=== PATIENT | female | born 1945 | race Caucasian/White ===

== ENCOUNTER 2024-03-10 17:48 | Outpatient (CLI) | payer MEDICARE, SELFPAY ==
[2024-03-10 13:58] LABS: Anion Gap 8.2 mmol/L (3-11); BUN 22 mg/dL (7-18); CO2 29.8 mmol/L (21.0-32.0); CREATININE 0.9 mg/dL (0.55-1.02); Calcium 9.3 mg/dL (8.5-10.1); Chloride 102 mmol/L (98-107); Estimated GFR 65.44 (mL/min/1.73m2); Glucose 133 mg/dL (74-106); Potassium 3.9 mmol/L (3.5-5.1); Sodium 140 mmol/L (136-145)
== END 2024-03-10 17:49 | disposition home or self-care (01) ==
LOC: LBO 17:49
PROVIDERS: Visit Provider Internal Medicine Hematology & Oncology
DX: C50.911 Malignant neoplasm of unspecified site of right female breast (principal); M85.852 Other specified disorders of bone density and structure, left thigh
CPT/HCPCS: 36415; 80048

== ENCOUNTER 2024-04-21 15:36 | Outpatient (CLI) | payer MEDICARE, SELFPAY ==
--- NOTE | 2024-04-21 13:30 | DI.RAD_ITS ---
Exam(s) XR SHOULDER LT COMPLETE 2+V EXAM: XR SHOULDER LT COMPLETE 2+V CLINICAL HISTORY: shoulder pain. TECHNIQUE: 2D digital imaging was performed of the left shoulder. Two images were obtained. Grashe y and axillary views were obtained. COMPARISON: No exams were available for comparison FINDINGS: BONES: No acute fracture is present. No bony destructive lesion is seen. JOINTS: No dislocation present. Degenerative changes are seen at both the acromioclavicular and gleno humeral joints. There is a bone island in the humeral head. SOFT TISSUE: Normal. IMPRESSION: Mild degenerative changes of the shoulder. DATA REPOSITORY: RADIATION DOSE DELIVERED:
== END 2024-04-21 15:37 | disposition home or self-care (01) ==
LOC: DIORS 15:37
PROVIDERS: Visit Provider Student in an Organized Health Care Education/Training Program
DX: M25.512 Pain in left shoulder (principal); M19.012 Primary osteoarthritis, left shoulder
CPT/HCPCS: 99203; 73030

== ENCOUNTER 2024-09-18 01:03 | Outpatient (CLI) | payer MEDICARE, SELFPAY ==
--- OUTSIDE RECORDS SUMMARY | 2024-09-18 01:15 | XMS_ITS | Continuity of Care Document ---
Author Organization [facility] Address [address] [place] [address] Care Team Providers Care Glass Selector Name Role Phone Kay Caldwell Primary Care Physician [phone] Encounter [facility] Date(s): 12/10/23 - 12/10/23 [facility] [address] [place] [address] Discharge Disposition: Home Allergies, Adverse Reactions, Alerts Substance Reaction Severity Status doxycycline Unknown Active morphine Unknown Active DULoxetine Itching Unknown Active Assessment and Plan Future Appointments Future Scheduled Tests Radiology* US Abdomen Limited 12/10/23 Immunizations Given and Recorded Vaccine Date Status Refusal Reason pneumococcal 20-valent conjugate vaccine 07/30/23 Given SARS-CoV-2 (COVID-19) mRNA-1273 vaccine 02/19/22 R ecorded SARS-CoV-2 (COVID-19) mRNA-1273 vaccine 08/15/21 R ecorded SARS-CoV-2 (COVID-19) mRNA-1273 vaccine 01/06/21 R ecorded SARS-CoV-2 (COVID-19) mRNA-1273 vaccine 12/09/20 R ecorded tetanus/diphth/pertuss (Tdap) adult/adol 01/02/22 Recorded tetanus/diphth/pertuss (Tdap) adult/adol 09/10/11 Recorded influenza virus vaccine, live 08/22/20 Recorded influenza virus vaccine, inactivated 09/14/19 De rded zoster vaccine, inactivated 02/28/18 Recorded zoster vaccine, inactivated 01/01/18 Recorded pneumococcal 13-valent conjugate vaccine 08/16/16 Recorded pneumococcal 23-polyvalent vaccine 07/23/11 Record ed zoster vaccine live 7/10/08 Recorded tetanus-diphth toxoids (Td) adult/adol 03/11/04 Re corded Medications clobetasol 0.05% topical ointment See Instructions, PRN as needed, Topical Daily apply a thin film in perineum, # 90 g, 2 Refill(s), Pharmacy: [facility] ([facility] ) Start Date: 03/28/23 Status: Ordered ketoconazole 1% topical shampoo 1 vinnie, Topical, every 3 day, # 200 mL, 0 Refill(s), Pharmacy: [id number] Start Date: 01/29/23 Status: Ordered lisinopril 10 mg oral tablet 1 tab, Oral, Daily, # 90 tab, 3 Refill(s), [facility]acy: [facility], 157, cm, 09/20/23 16:23:00 EST, Height, 90.22, kg, 09/23/23 9:13:00 EST, Weight Dosing Start Date: 10/17/23 Status: Ordered multivitamin adult, oral tablet 1 tab, Oral, Daily, 0 Refill(s) Start Date: 06/25/22 Status: Ordered nystatin 100,000 units/g topical powder See Instructions, apply a thin layer to ismael affacted area twice daily as needed, # 60 g, 1 Refill(s), Pharmacy: [facility] ([facility]) Start Date: 06/27/22 Status: Ordered omeprazole 20 mg oral delayed release capsule 1 cap, Oral, Daily, # 90 cap, 3 Refill(s), Pharmacy: [facility] ([facility]) Start Date: 05/02/23 Status: Ordered Premarin 0.625 mg/g vaginal cream with applicator See Instructions, 1 g VAG 2-3 times weekly, # 30 g, 2 Refill(s), Pharmacy: [facility] ([facility] ) Start Date: 03/28/23 Status: Ordered Probiotic Formula (Bacillus Coagulans) oral capsule 1 cap, Oral, Daily, # 30 cap, 0 Refill(s) Start Date: 06/25/22 Status: Ordered simvastatin 20 mg oral tablet 20 mg = 1 tab, Oral, every night at bedtime, # 90 tab, 3 Refill(s), Pharmacy: [facility] ([facility] ) Start Date: 02/19/23 Status: Ordered venlafaxine 25 mg oral tablet 25 mg = 1 tab, Oral, Daily, # 90 tab, 0 Refill(s) Start Date: 06/25/22 Status: Ordered Vitamin D3 2000 iu, Oral, Daily, 0 Refill(s) Start Date: 06/25/22 Status: Ordered Problem List Condition Confirmation Course Effective Dates Status H ealth Status Informant Anxiety Confirmed Active Deafness of right ear Confirmed Active Deltoid tendinitis Confirmed Active Depressive disorder Confirmed Active Dyspareunia Confirmed Active Gastroesophageal reflux disease Confirmed Active H/O: alcoholism Confirmed Active 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 Hiatal hernia Confirmed Active History of diverticulitis Confirmed Active Hyperlipidemia Confirmed 09/12/21 Active Hypertensive disorder Confirmed 09/12/21 Active Lichen sclerosus Confirmed Active Lumbar radiculopathy Confirmed 10/08/22 Active Breast cancer in female Confirmed Active Nasal congestion Confirmed Active Neuropathy Confirmed 10/09/22 Active Osteoarthritis Confirmed Active Overactive bladder Confirmed Active Triceps tendinitis Confirmed Active Procedures Procedure Date Related Diagnosis Body Site Status Pelvic examination 1 03/27/23 Comp leted Colonoscopy 2 02/28/22 Completed Cystoscopy 3 10/24/21 Completed Laparoscopic lysis of adhesions 10/24/21 Completed Laparoscopic partial colectomy 10/24/21 Completed Colonoscopy 4 10/23/21 Completed Knee replacement 5 02/11/06 Comple debbi Fixed suspension procedure o f bladder neck 02/08/06 Completed Knee replacement 6 07/11/04 Comple debbi Hysterectomy 7 11/10/84 Completed Appendectomy Completed Tonsillectomy Completed 1Pelvic exam for medication 2mild diverticular change, mild internal hemorrhoids 3With bilat uerteral cath/stent placement 4sigmoid stricture, fibrosis, polyps, diverticulosis, grade 1 internal hemorrhoids 5Right, in [place] 6left 7[place]; BSO Social History Social History Type Response Tobacco Former tobacco user Tobacco Use:. 1 Sex Female 1Quit 1987 Patient Care team information Care Team Personnel Name: Kay Caldwell MD Position: Physician Member Role: Informed Provider Address: Address: [facility] [address]- Care Team Related Persons Name: ANNIE PARISH Address: Home [address] [place] [address], [id number]
--- OUTSIDE RECORDS SUMMARY | 2024-09-18 01:15 | XMS_ITS | Continuity of Care Document ---
Author Organization [facility] Address [address] [place] [address] Care Team Providers Care Hydraulic Rubbish Compactor Mechanic Name Role Phone Kay Caldwell Primary Care Physician [phone] [facility] 12[facility] [address] Encounter Diagnosis Liver cyst(Discharge Diagnosis) - 12/12/23 Discharge Disposition: Home or Self Care Attending Physician: Kay Caldwell MD Admitting Physician: Kay Caldwell MD Referring Physician: Kay Caldwell MD Allergies, Adverse Reactions, Alerts Substance Reaction Severity Status doxycycline Unknown Active morphine Unknown Active DULoxetine Itching Unknown Active Assessment and Plan Future Appointments Immunizations Given and Recorded Vaccine Date Status [...] vaccine 07/23/11 Record ed zoster vaccine live 05/20/08 Recorded tetanus-diphth toxoids (Td) adult/adol 03/11/04 Re corded Medications clobetasol 0.05% topical ointment See Instructions, PRN as needed, Topical Daily apply a thin film in perineum, # 90 g, 2 Refill(s), Pharmacy: [facility] ([facility] ) Start Date: 03/28/23 Status: Ordered ketoconazole 1% topical shampoo 1 vinnie, Topical, every 3 day, # 200 mL, 0 Refill(s), Pharmacy: [facility]58 Start Date: 01/29/23 Status: Ordered lisinopril 10 mg oral tablet 1 tab, Oral, Daily, # 90 tab, 3 Refill(s), Pharmacy: [facility], 157, cm, 09/20/23 16:23:00 EST, Height, 90.22, kg, 09/23/23 9:13:00 EST, Weight Dosing Start Date: 10/17/23 Status: Ordered multivitamin adult, oral tablet 1 tab, Oral, Daily, 0 Refill(s) Start Date: 06/25/22 Status: Ordered nystatin 100,000 units/g topical powder See Instructions, apply a thin layer to ismael affacted area twice daily as needed, # 60 g, 1 Refill(s), [facility]) Start Date: 06/27/22 Status: Ordered omeprazole 20 mg oral delayed release capsule 1 cap, Oral, Daily, # 90 cap, 3 Refill(s), Pharmacy: [facility] ([facility]) Start Date: 05/02/23 Status: Ordered Premarin 0.625 mg/g vaginal cream with applicator See Instructions, 1 g VAG 2-3 times weekly, # 30 g, 2 Refill(s), Pharmacy: [facility] ([facility] ) Start Date: 03/28/23 Status: [...] diverticulosis, grade 1 internal hemorrhoids 5Right, in [place] 6left 7[place]; BSO Social History Social History Type Response Tobacco Former tobacco user Tobacco Use:. 1 Sex Female 1Quit 1987 Patient Care team information Care Team Personnel Name: Kay Caldwell MD Position: Physician Member Role: Informed Provider Address: Address: [address] [place] [address] [place] [address]- Care Team Related Persons Name: ANNIE PARISH Address: Home [address] [place] [address] [place], [phone]
--- OUTSIDE RECORDS SUMMARY | 2024-09-18 01:15 | XMS_ITS | Continuity of Care Document ---
Author Organization [facility] Address [address] [place] [address] Care Team Providers Care Gas Cutter Name Role Phone Kay Caldwell Primary Care Physician Encounter [facility] Date(s): 08/09/23 - 08/09/[address] [address] Discharge Disposition: Home or Self Care Attending Physician: Kay Caldwell MD Admitting Physician: Kay Caldwell MD Allergies, Adverse Reactions, Alerts Substance Reaction Severity Status doxycycline Unknown Active morphine Unknown Active DULoxetine Itching Unknown Active Assessment and Plan Future Appointments Diagnostic Tests Pending * Surgical Pathology [facility] 08/09/23 Immunizations Given and Recorded Vaccine Date Status [...] day, # 200 mL, 0 Refill(s), Pharmacy: [facility][id number] Start Date: 01/29/23 Status: Ordered lisinopril 10 mg oral tablet 1 tab, Oral, Daily, # 90 tab, 3 Refill(s), Pharmacy: [facility] ([facility]) Start Date: 11/15/22 Status: Ordered multivitamin adult, oral tablet 1 tab, Oral, Daily, 0 Refill(s) Start Date: 06/25/22 Status: Ordered nystatin 100,000 units/g topical powder See Instructions, apply a thin layer to ismael affacted area twice daily as needed, # 60 g, 1 Refill(s), Pharmacy: [facility] ([facility]) Start Date: [...] Confirmed Active Lumbar radiculopathy Confirmed 10/08/22 Active Neuropathy Confirmed 10/09/22 Active Osteoarthritis Confirmed [...] diverticulosis, grade 1 internal hemorrhoids 5Right, in [place] [address]left [address] [place] [address]; BSO Social History Social History Type Response Tobacco Former tobacco user Tobacco Use:. 1 Sex Female 1Quit 1987 Patient Care team information Care Team Personnel Name: Kay Caldwell MD Position: Physician Member Role: Primary Care Physician Address: Address: [place] [address]- Care Team Related Persons Name: ANNIE PARISH
--- OUTSIDE RECORDS SUMMARY | 2024-09-18 01:15 | XMS_ITS | Continuity of Care Document ---
Author Organization [facility] Address [address] [place] [address] Care Team Providers Care Ball Ender Name Role Phone Kay Caldwell Primary Care Physician Encounter [facility] Date(s): 08/02/23 - 08/02/23 [facility] [address] [place] [address] Discharge Disposition: Home Allergies, Adverse Reactions, Alerts Substance Reaction Severity Status doxycycline Unknown Active morphine Unknown Active DULoxetine Itching Unknown Active Assessment and Plan Future Appointments Future Scheduled Tests Radiology* MG Mammo Diagnostic Right 08/02/23 * US Breast Biopsy w/ Clip Right 08/02/23 Immunizations Given and Recorded Vaccine Date Status [...] day, # 200 mL, 0 Refill(s), Pharmacy: [facility] #[facility] Start Date: 01/29/23 Status: Ordered lisinopril [...] diverticulosis, grade 1 internal hemorrhoids 5Right, in [place] [address] [place] [address]; BSO Social History Social History Type Response Tobacco Former tobacco user Tobacco Use:. 1 Sex Female 1Quit 1987 Patient Care team information Care Team Personnel Name: Kay Caldwell MD Position: Physician Member Role: Primary Care Physician Address: Address: [place] [address]- Care Team Related Persons Name: ANNIE PARISH
--- OUTSIDE RECORDS SUMMARY | 2024-09-18 01:15 | XMS_ITS | Continuity of Care Document ---
Author Organization [facility] Address [address] [place] [address] Care Team Providers Care Acid Mixer Name Role Phone Kay Caldewll Primary Care Physician Encounter [facility] Date(s): 08/02/23 - 08/02/23 [facility] [address] [place] [address] Discharge Disposition: Home Allergies, Adverse Reactions, Alerts [...] day, # 200 mL, 0 Refill(s), Pharmacy: [facility] #[id number] Start Date: 01/29/23 Status: Ordered lisinopril [...] diverticulosis, grade 1 internal hemorrhoids 5Right, in [place] [address]left [address] [place] [address]; BSO Social History Social History Type Response Tobacco Former tobacco user Tobacco Use:. 1 Sex Female 1Quit 1987 Patient Care team information Care Team Personnel Name: Kay Caldwell MD Position: Physician Member Role: Primary Care Physician Address: Address: [place] [address]- Care Team Related Persons Name: ANNIE PARISH
--- OUTSIDE RECORDS SUMMARY | 2024-09-18 01:15 | XMS_ITS | Continuity of Care Document ---
Author Organization [facility] Address [address] [place] [address] Care Team Providers Care Lube Man Name Role Phone Kay Caldwell Primary Care Physician [facility] Date(s): 09/20/23 - 09/20/[address] [id number] Encounter Diagnosis Malaise(Discharge Diagnosis) - 09/20/23 Ecchymosis(Discharge Diagnosis) - 09/20/23 Discharge Disposition: Home or Self Care Attending Physician: Maranda Sims MD Admitting Physician: Maranda Sims MD Allergies, Adverse Reactions, Alerts Substance Reaction Severity Status doxycycline Unknown Active morphine Unknown Active DULoxetine Itching Unknown Active Assessment and Plan Future Appointments Functional Status 09/20/23 Family Member Travel History No recent t ravel Recent Travel History No recent travel Other exposure to Infectious Disease Non e Immunizations Given and Recorded Vaccine Date Status [...] day, # 200 mL, 0 Refill(s), Pharmacy: [id number] Start Date: 01/29/23 Status: Ordered lisinopril [...] tab, 3 Refill(s), Pharmacy: [facility] Start Date: 02/19/23 Status: [...] Active Breast cancer in female Confirmed Active Neuropathy Confirmed 10/09/22 Active Osteoarthritis [...] 1 internal hemorrhoids 5[facility] [place] [facility] Results Laboratory List Name Date Urinalysis with Micro if Indicated and C ulture if Indicated 09/20/23 CBC w/ Diff 09/20/23 Comprehensive Metabolic Panel (CMP) 09/11 Magnesium Level 09/20/23 Troponin-I 09/20/23 Automated Diff 09/20/23 SARS-CoV-2 (COVID-19)/Flu/RSV (GeneXpert ) 09/20/23 Most recent to oldest [Reference Range]: 1 WBC [5.0-10.0 x10^3/mcL] 7.8 x10^3/mcL (09/20/23 5:12 PM) RBC [4.1-5.3 x10^6/mcL] 4.4 x10^6/mcL (09/20/23 5:12 PM) Neutro Auto [40.0-75.0 %] 64.2 % (09/20/23 5:12 PM) Lymph Auto [20.0-50.0 %] 23.2 % (09/20/23 5:12 PM) Essex Auto [2.0-15.0 %] 8.0 % (09/20/23 5:12 PM) Basophil Auto [0.0-1.0 %] 0.8 % (09/20/23 5:12 PM) BUN [7-18 mg/dL] 25 mg/dL *HI* (09/20/23 5:12 PM) UA Color Yellow (09/20/23 5:25 PM) Glucose Level [74-106 mg/dL] 104 mg/dL (09/20/23 5:12 PM) Potassium Level [3.5-5.1 mmol/L] 4.7 mmo l/L (09/20/23 5:12 PM) MCV [80.0-96.0 fL] 91.1 fL (09/20/23 5:12 PM) UA Urobilinogen Normal (09/20/23 5:25 PM) UA Bili [Negative] Negative (09/20/23 5:25 PM) UA Ketones Negative (09/20/23 5:25 PM) AST [15-37 unit/L] 18 unit/L (09/20/23 5:12 PM) ALT [14-59 unit/L] 20 unit/L (09/20/23 5:12 PM) MCHC [31.0-35.0 g/dL] 32.6 g/dL (09/20/23 5:12 PM) Troponin-I [0.0-51.4 pg/mL] 8.1 pg/mL (09/20/23 5:12 PM) Sodium Level [136-145 mmol/L] 138 mmol/L (09/20/23 5:12 PM) UA Leuk Est Negative (09/20/23 5:25 PM) UA Nitrite Negative (09/20/2325 PM) UA Glucose [Negative] Negative (09/20/23:25 PM) Hct [37.0-47.0 %] 39.9 % (09/20/2312 PM) Calcium Level [8.5-10.1 mg/dL] 9.1 mg/dL (09/20/23 5:12 PM) Albumin Level [3.4-5.0 g/dL] 3.1 g/dL *LOW* (09/20/2312 PM) Protein Total [6.4-8.2 g/dL] 6.2 g/dL *LOW* (09/20/23 5:12 PM) UA Protein Negative (09/20/2325 PM) MCH [26.0-32.0 pg] 29.7 pg (09/20/23:12 PM) Magnesium Level [1.8-2.4 mg/dL] 1.9 mg/d L (09/20/23 5:12 PM) Neutro Absolute 5.0 x10^3/mcL *NA* (09/20/23:12 PM) Bilirubin Total [0.2-1.0 mg/dL] 0.2 mg/d L (09/20/23 5:12 PM) Hgb [12.0-16.0 g/dL] 13.0 g/dL (09/20/23:12 PM) Alk Phos [46-146 unit/L] 69 unit/L (09/20/23 5:12 PM) UA Blood Negative (09/20/23 5:25 PM) UA Spec Grav 1.010 *NA* (09/20/23:25 PM) Platelets [130-450 x10^3/mcL] 196 x10^3/ mcL (09/20/23 5:12 PM) CO2 [21-32 mmol/L] 29 mmol/L (09/20/23 5:12 PM) UA pH 5.5 *NA* (11/10/23 5:25 PM) eGFR Non-AA [>=60] 56 *LOW* (09/20/23 5:12 PM) eGFR AA [>=60] 56 *LOW* (09/20/23 5:12 PM) UA Appear Clear (09/20/23 5:25 PM) Chloride Level [98-107 mmol/L] 103 mmol/ L (09/20/23 5:12 PM) RDW-CV [11.5-14.5 %] 14.3 % (09/20/23 5:12 PM) Imm Gran Auto [0.0-0.9 %] 0.4 % (09/20/23 5:12 PM) Creatinine Level [0.55-1.02 mg/dL] 1.03 mg/dL *HI* (09/20/23 5:12 PM) SARS-CoV-2(Covid19)PCR(GXpert COVFLURSV) [Negative] Negative (09/20/23 4:34 PM) Flu A (GXpert COVFLURSV) [Negative] Nega tive (09/20/23 4:34 PM) RSV (GXpert COVFLURSV) [Negative] Negati ve (09/20/23 4:34 PM) Flu B (GXpert COVFLURSV) [Negative] Nega tive (09/20/23 4:34 PM) Eos, Auto [1.0-6.0 %] 3.4 % (09/20/23 5:12 PM) Vital Signs Most recent to oldest [Reference Range]: 1 2 3 Temperature Temporal Artery [36-38 Deg C] 36.3 Deg C (09/20/23 4:44 PM) 35.5 Deg C *LOW* (09/20/23 4:19 PM) Peripheral Pulse Rate [60-100 bpm] 62 bpm (09/20/23 4:19 PM) Heart Rate Monitored [60-100 bpm] 58 bpm *LOW* (09/20/23 6:30 PM) 60 bpm (09/20/23 5:38 PM) 56 bpm *LOW* (09/20/23 5:28 PM) Respiratory Rate [12-24 br/min] 19 br/min (09/20/23 6:21 PM) 34 br/min *HI* (09/20/23 5:38 PM) 19 br/min (09/20/23 5:28 PM) Blood Pressure [90-140/60-90 mmHg] 157/57mmHg *HI* (09/20/23 6:30 PM) 152/75mmHg *HI* (09/20/23 5:38 PM) 166/72mmHg *HI* (09/20/23 5:28 PM) Mean Arterial Pressure, Cuff [70-110 mmHg] 90 mmHg (09/20/23 6:30 PM) 101 mmHg (09/20/23 5:38 PM) 103 mmHg (09/20/23 5:28 PM) Weight Dosing 85.70 kg (09/20/23 4:23 PM) Weight Estimated 85.70 kg (09/20/23 4:19 PM) Height 157.000 cm (09/20/23 4:23 PM) Height/Length Estimated 157.000 cm (09/20/23 4:19 PM) Social History Social History Type Response Tobacco Former tobacco user Tobacco Use:. 1 Sex Female 1Quit 1987 Hospital Discharge Instructions Follow Up Care 09/20/2023 16:19:15 With:Kay Caldwell MD Address: [place] [address]- When:2 to 4 days EKG study * Event Display: Telemetry Strips Please click on link to view image. * Event Display: Telemetry Strips Please click on link to view image. Physician Emergency department Note * Bruno Franco MD: PERFORM Event Display: ED Note Physician Authored Date: [id number] K[place]K PARISH :1945 Age:78 years Sex:Female Visit Date:09/20/2023 Primary Care Physician: Kay Caldwell MD Basic Information Time Seen: Bruno Farnco MD / 09/20/2023 16:22 Chief Complaint I had a lumpectomy on Saturday and I just feel well, I have a sore throat that is numb, a CANO, I feel very woozy as well. I called the surgeon and they said I should come in and be seen. History Of Present Illness: 70-year-old female past medical history reflux, alcoholism, recent??lumpectomy right breast??presents with feeling off. ??Patient describes a general feeling??starting yesterday and getting worse throughout the day today where she has felt off. ??She is unable to really describe the sensation??inmore detail, does not subscribe to lightheadedness or room spinning or any??particular dizziness per se, but just does not feel quite herself.?? She??reports her general frontal minimal headache as well. ??No nausea vomiting diarrhea or abdominal pain,??no substernal chest pain or shortness of breath??or fevers. ??No known sick contacts. ??She does have some lingering tenderness to the right breast. Review of Systems: Unwell, malaise Physical Exam Vitals & Measurements T:??36.3?C ??(Temporal Artery)?? HR:??60??(Monitored)?? RR:??19?? BP:??152/75?? SpO2:??99%?? HT:??157.000??cm?? WT:??85.70??kg??(Estimated)?? O2 Therapy:??Room air?? General: Alert and oriented, well nourished,?No??acute distress Eye: PERRL, EOMI,?Normal?conjunctiva HENT: Normocephalic Lungs: Clear to auscultation and percussion,?Non-labored?? respiration Heart:?Normal? rate,?Regular??rhythm Abdomen: Soft, non-tender, non-distended Skin: Right breast incision??anteriorly has some ecchymosis surrounding this a couple centimeters, no obvious warmth or fluctuance or erythema or pus draining from the incision, no dehiscence of the incision, incision on the right??axillary region??is acutely unremarkable no pus or surrounding erythema Neurologic: Awake, alert and oriented X4, CN II-XII intact Psychiatric: Cooperative, appropriate mood and affect Medical Decision Makin-year-old female presents with??generally feeling off/unwell for the past day??or 2, gradually getting worse. ??On Saturday she had a lumpectomy with Dr. Schultz??at [facility],??she did have a nerve block at the time??and reports when the nerve block??wore off she had some pain in the incision areas??but it has not gotten any worse??throughout the day today.?? Clinically there is some ecchymosis around the anterior breast incision but no pus or erythema or warmth noted to the incisionitself,??the axillary right-sided incision is unremarkable as well. ??Clinically the patient looks well is responding appropriate to questions. ??35.5, 164/95, 62, 20, 99%. ?? EKG rate 58??sinus normal axis and intervals no ST segment elevations or depressions. ?? No leukocytosis. ??Hemoglobin stable.?? Other labs are unremarkable. ??Troponin is negative. ??Flu COVID RSV negative. ??UA negative.?? Chest x-ray shows subcutaneous emphysema in the lateral aspect of the right chest.?? This is most likely secondary to the patient's??recent surgical procedure of the right breast.?? She does not have any evidence of a necrotizing infection and no evidence of apneumothorax on her chest x-ray, and clinically she??looks quite well and does not have any??signs of infection around the??incision sites.?? There was some ecchymosis surrounding the right??breast anterior incision that was beyond the margins??that were drawn after her procedure, new margins were d rawn??on the skin??to keep track of the??ecchymosis. ??It is only about 2 to 3 cm beyond the margins of the prior line. ??Spoke with Dr. Schultz??who did the procedure, at this time??we will follow-up as an outpatient??given the remaining clinical??presentation.?? She may happen to simultaneously have a viral illness and feel unwell secondary to this??given the normal vitals and overall evaluation in the ER. ??She does have follow-up with primary care on Saturday. ??We will follow-up with both primary care and??surgery.?? Discharged in stable condition with strict return precautions the ED. Procedure No Qualifying Data Assessment/Plan 1.??Malaise??R53.81 Ordered: Discharge Patient, 09/20/23 18:26:00 EST, Home Independently, Constant Indicator ?? 2.??Ecchymosis??R58 Ordered: Discharge Patient, 09/20/23 18:26:00 EST, Home Independently, Constant Indicator ?? Follow Up With When Contact Information Kay Caldwell MD Within 2 to [address] [place] [address]- Additional Instructions: Medication Reconciliation Unchanged bacillus coagulans-inulin (Probiotic Formula (Bacillus Coagulans) oral capsule)1 Capsules Oral (given by mouth) every day. ?? cholecalciferol (Vitamin D3)2000 iu Oral (given by mouth) every day. ?? clobetasol topical (clobetasol 0.05% topical ointment)Topical Daily apply a thin film in perineum; as needed. Refills: 2. ?? conjugated estrogens topical (Premarin 0.625 mg/g vaginal cream with applicator)1 g VAG 2-3 times weekly. Refills: 2. ?? ketoconazole topical (ketoconazole 1% topical shampoo)1 Application Topical (on the skin) every 3 days. Refills: 0. ?? lisinopril (lisinopril 10 mg oral tablet)1 tab Oral (given by mouth) every day. Refills: 3. ?? multivitamin (multivitamin adult, oral tablet)1 tab Oral (given by mouth) every day. ?? nystatin topical (nystatin 100,000 units/g topical powder)apply a thin layer to ismael affacted area twice daily as needed. Refills: 1. ?? omeprazole (omeprazole 20 mg oral delayed release capsule)1 Capsules Oral (given by mouth) every day. Refills: 3. ?? simvastatin (simvastatin 20 mg oral tablet)1 tab Oral (given by mouth) every night at bedtime. Refills: 3. ?? venlafaxine (venlafaxine 25 mg oral tablet)1 tab Oral (given by mouth) every day. Problem List/Past Medical History Ongoing Anxiety Breast cancer in female Deafness of right ear Deltoid tendinitis Depressive disorder Dyspareunia Gastroesophageal reflux disease H/O: alcoholism Herniation of rectum into vagina Hiatal hernia History of diverticulitis Hyperlipidemia Hypertensive disorder Lichen sclerosus Lumbar radiculopathy Neuropathy Osteoarthritis Overactive bladder Triceps tendinitis Historical No qualifying data Procedure/Surgical History ???Pelvic examination (03/28/2023)???Colonoscopy (03/01/2022)???Cystoscopy (10/25/2021)???Laparoscopic lysis of adhesions (10/25/2021)???Laparoscopic partial colectomy (10/25/2021)???Colonoscopy (10/24/2021)???Knee replacement (02/12/2006)???Fixed suspension procedure of bladder neck (02/09/2006)???Knee replacement (07/12/2004)???Hysterectomy (11/11/1984)???Appendectomy???Tonsillectomy Allergies DULoxetine??(Itching) doxycycline morphine Social History Alcohol Never Electronic Cigarette/Vaping Electronic Cigarette Use: Never. Employment/School Retired Home/Environment Lives with Spouse. Nutrition/Health Diet: Regular. Substance Use Never Tobacco Former tobacco user Tobacco Use:.- Comments: Quit 1987 Family History Cancer: Mother and Father. Dementia: Mother. Depressive disorder: Mother. Heart disease: Father. Mental disorder: Mother. Stroke: Father. Lab Results CBC and Differential?? LATEST RESULTS?? HISTORICAL RESULTS?? WBC?? 09/20/23 17:12?? 7.8?? 01/31/23?? 5.5?? RBC?? 09/20/23 17:12?? 4.4?? 01/31/23?? 4.7?? Hgb?? 09/20/23 17:12?? 13.0?? 01/31/23?? 13.6?? Hct?? 09/20/23 17:12?? 39.9?? 01/31/23?? 42.6?? MCV?? 09/20/23 17:12?? 91.1?? 01/31/23?? 91.4?? MCH?? 09/20/23 17:12?? 29.7?? 01/31/23?? 29.2?? MCHC?? 09/20/23 17:12?? 32.6?? 01/31/23?? 31.9?? RDW-CV?? 09/20/23 17:12?? 14.3?? 01/31/23?? 13.3?? Platelets?? 09/20/23 17:12?? 196?? 08/02/23?? 238?? Neutro Auto?? 09/20/23 17:12?? 64.2?? 01/31/23?? 59.3?? Lymph Auto?? 09/20/23 17:12?? 23.2?? 01/31/23?? 25.3?? Essex Auto?? 09/20/23 17:12?? 8.0?? 01/31/23?? 9.6?? Eos, Auto?? 09/20/23 17:12?? 3.4?? 01/31/23?? 4.9?? Basophil Auto?? 09/20/23 17:12?? 0.8?? 01/31/23?? 0.7?? Imm Gran Auto?? 09/20/23 17:12?? 0.4?? 01/31/23?? 0.2?? Neutro Absolute?? 09/20/23 17:12?? 5.0?? 01/31/23?? 3.3? Routine Chemistry?? LATEST RESULTS?? HISTORICAL RESULTS?? Sodium Level?? 09/20/23 17:12?? 138?? 01/31/23?? 139?? Potassium Level?? 09/20/23 17:12?? 4.7?? 01/31/23?? 4.5?? Chloride Level?? 09/20/23 17:12?? 103?? 01/31/23?? 102?? CO2?? 09/20/23 17:12?? 29?? 01/31/23?? 32?? Alk Phos?? 09/20/23 17:12?? 69?? 01/31/23?? 67?? AST?? 09/20/23 17:12?? 18?? 01/31/23?? 20?? ALT?? 09/20/23 17:12?? 20?? 01/31/23?? 22?? BUN?? 09/20/23 17:12?? 25 ??High?? 01/31/23?? 21 ??High?? Glucose Level?? 09/20/23 17:12?? 104?? 01/31/23?? 118 ??High?? Creatinine Level?? 09/20/23 17:12?? 1.03 ??High?? 01/31/23?? 0.87?? eGFR AA?? 09/20/23 17:12?? 56 ??Low?? 01/31/23?? 69?? eGFR Non-AA?? 09/20/23 17:12?? 56 ??Low?? 01/31/23?? 69?? Calcium Level?? 09/20/23 17:12?? 9.1?? 01/31/23?? 9.3?? Protein Total?? 09/20/23 17:12?? 6.2 ??Low?? 01/31/23?? 6.8?? Albumin Level?? 09/20/23 17:12?? 3.1 ??Low?? 01/31/23?? 3.4?? Bilirubin Total?? 09/20/23 17:12?? 0.2?? 01/31/23?? 0.6?? Magnesium Level?? 09/20/23 17:12?? 1.9? Cardiac Isoenzymes?? LATEST RESULTS?? Troponin-I?? 09/20/23 17:12?? 8.1? UA Macroscopic?? LATEST RESULTS?? HISTORICAL RESULTS?? UA Color?? 09/20/23 17:25?? Yellow?? 09/03/22?? Yellow?? UA Appear?? 09/20/23 17:25?? Clear?? 09/03/22?? Clear?? UA Glucose?? 09/20/23 17:25?? Negative?? 09/03/22?? Negative?? UA Bili?? 09/20/23 17:25?? Negative?? 09/03/22?? Negative?? UA Ketones?? 09/20/23 17:25?? Negative?? 09/03/22?? Negative?? UA Spec Grav?? 09/20/23 17:25?? 1.010?? 09/03/22?? 1.015?? UA Blood?? 09/20/23 17:25?? Negative?? 09/03/22?? Negative?? UA pH?? 09/20/23 17:25?? 5.5?? 09/03/22?? 6.0?? UA Protein?? 09/20/23 17:25?? Negative?? 09/03/22?? Negative?? UA Urobilinogen?? 09/20/23 17:25?? Normal?? 09/03/22?? Normal?? UA Nitrite?? 09/20/23 17:25?? Negative?? 09/03/22?? Negative?? UA Leuk Est?? 09/20/23 17:25?? Negative?? 09/03/22?? Negative? Infectious Disease?? LATEST RESULTS?? SARS-CoV-2(Covid19)PCR(GXpert COVFLURSV)?? 09/20/23 16:34?? Negative?? Flu A (GXpert COVFLURSV)?? 09/20/23 16:34?? Negative?? Flu B (GXpert COVFLURSV)?? 09/20/23 16:34?? Negative?? RSV (GXpert COVFLURSV)?? 09/20/23 16:34?? Negative? Electronically Signed on 09/20/23 06:28 PM Bruno Franco MD Emergency department Discharge instructions * Bruno Franco MD: PERFORM Event Display: ED Discharge Information Authored Date: [id number] [place] :1945 Age:78 years Sex:Female Visit Date:09/20/2023 Primary Care Physician: Kay Caldwell MD Discharge Instructions We would like to thank you for allowing us to assist you with your healthcare needs. The following includes patient education materials and information regarding your injury/illness. Diagnosis from Today's Visit Malaise Ecchymosis Discharge Vitals Temperature??(Temporal Artery) 97.3 ??F (36.3 ??C) Heart Rate??(Monitored) 60 Respiratory Rate?? 19 Blood Pressure?? 152/75?? Height?? 61.81 in (157.000 cm) Weight??(Estimated) 188.97 lb (85.70 kg) Allergies DULoxetine??(Itching) doxycycline morphine What to Do Next Instructions from Your Care Team You were seen in the emergency department for generalized symptoms of a headache and??malaise.?? Your vitals and labs did not reveal any significant findings??of severe illness.?? Your flu COVID and RSV swab was negative.?? Your chest x-ray showed a little bit of air in the chest wall itself near the??incision site which??is likely a normal finding??after the procedure. ??You did have some??bruising around the front incision of the right breast, this was outlined, if it is getting significantlyrapidly worse??and expanding much beyond the line you can come back to the emergency department??for reevaluation. ??Otherwise follow-up with primary care physician appointment already scheduled on ??as well as with Dr. Schultz??for reevaluation.?? Come back to the ER with any worsening symptoms or concerns. You Need to Schedule the Following Appointments Follow Up with??Kay Caldwell MD When:??Within 2 to 4 days Where: [place] [address]- Upcoming Scheduled Appointments Saturday 9:20 AM EST ?? With: Erica Garza STEAM TURBINE OPERATOR Where: [address] [phone] Status: Confirmed Saturday 8:40 AM EDT ?? Where: [address] [address] Status: Confirmed You were treated today on an emergency basis; it may be barnes to contact your primary care provider to notify them of your visit today. You may have been referred to your regular doctor or a specialist, please follow up as instructed. If your condition worsens or you can't get in to see the doctor, contact the Emergency Department. Medications What How Much When Why Instructions Next Dose Unchanged bacillus coagulans- inulin (Probiotic Formula (Bacillus Coagulans) oral capsule) 1 Capsules Oral (given by mouth) Every day Unchanged cholecalciferol (Vitamin D3) 2000 iu Oral (given by mouth) Every day Unchanged clobetasol topical (clobetasol 0.05% topical ointment) See instructions Topical Daily apply a thin film in perineum, As needed for as needed ?? Unchanged conjugated estrogens topical (Premarin 0.625 mg/ g vaginal cream with applicator) See instructions 1 g VAG 2-3 times weekly ?? Unchanged ketoconazole topical (ketoconazole 1% topical shampoo) 1 Application Topical (on the skin) Every 3 days Scalp itch Unchanged lisinopril (lisinopril 10 mg oral tablet) 1 tab Oral (given by mouth) Every day Unchanged multivitamin (multivitamin adult, oral tablet) 1 tab Oral (given by mouth) Every day Unchanged nystatin topical (nystatin 100,000 units/ g topical powder) See instructions apply a thin layer to ismael affacted area twice daily as needed ?? Unchanged omeprazole (omeprazole 20 mg oral delayed release capsule) 1 Capsules Oral (given by mouth) Every day Unchanged simvastatin (simvastatin 20 mg oral tablet) 1 tab Oral (given by mouth) Every night at bedtime Unchanged venlafaxine (venlafaxine 25 mg oral tablet) 1 tab Oral (given by mouth) Every day Tests Performed Lab Test Name Test Result Date/Time WBC 7.8 x10^3/mcL 09/20/2023 17:12 EST RBC 4.4 x10^6/mcL 09/20/2023 17:12 EST Hgb 13.0 g/dL 09/20/2023 17:12 EST Hct 39.9 % 09/20/2023 17:12 EST MCV 91.1 fL 09/20/2023 17:12 EST MCH 29.7 pg 09/20/2023 17:12 EST MCHC 32.6 g/dL 09/20/2023 17:12 EST RDW-CV 14.3 % 09/20/2023 17:12 EST Platelets 196 x10^3/mcL 09/20/2023 17:12 EST Neutro Auto 64.2 % 09/20/2023 17:12 EST Lymph Auto 23.2 % 09/20/2023 17:12 EST Essex Auto 8.0 % 09/20/2023 17:12 EST Eos, Auto 3.4 % 09/20/2023 17:12 EST Basophil Auto 0.8 % 09/20/2023 17:12 EST Imm Gran Auto 0.4 % 09/20/2023 17:12 EST Neutro Absolute 5.0 x10^3/mcL 09/20/2023 17:12 EST Sodium Level 138 mmol/L 09/20/2023 17:12 EST Potassium Level 4.7 mmol/L 09/20/2023 17:12 EST Chloride Level 103 mmol/L 09/20/2023 17:12 EST CO2 29 mmol/L 09/20/2023 17:12 EST Alk Phos 69 unit/L 09/20/2023 17:12 EST AST 18 unit/L 09/20/2023 17:12 EST ALT 20 unit/L 09/20/2023 17:12 EST BUN 25 mg/dL 09/20/2023 17:12 EST Glucose Level 104 mg/dL 09/20/2023 17:12 EST Creatinine Level 1.03 mg/dL 09/20/2023 17:12 EST eGFR AA 56 09/20/2023 17:12 EST eGFR Non-AA 56 09/20/2023 17:12 EST Calcium Level 9.1 mg/dL 09/20/2023 17:12 EST Protein Total 6.2 g/dL 09/20/2023 17:12 EST Albumin Level 3.1 g/dL 09/20/2023 17:12 EST Bilirubin Total 0.2 mg/dL 09/20/2023 17:12 EST Magnesium Level 1.9 mg/dL 09/20/2023 17:12 EST Troponin-I 8.1 pg/mL 09/20/2023 17:12 EST UA Color YELLOW. 09/20/2023 17:25 EST UA Appear CLEAR. 09/20/2023 17:25 EST UA Glucose NEGATIVE 09/20/2023 17:25 EST UA Bili NEGATIVE 09/20/2023 17:25 EST UA Ketones NEGATIVE 09/20/2023 17:25 EST UA Spec Grav 1.010 09/20/2023 17:25 EST UA Blood NEGATIVE 09/20/2023 17:25 EST UA pH 5.5 09/20/2023 17:25 EST UA Protein NEGATIVE 09/20/2023 17:25 EST UA Urobilinogen 0.2 Uro 09/20/2023 17:25 EST UA Nitrite NEGATIVE 09/20/2023 17:25 EST UA Leuk Est NEGATIVE 09/20/2023 17:25 EST SARS-CoV-2(Covid19)PCR(GXpert COVFLURSV) NEGATIVE 09/20/2023 16:34 EST Flu A (GXpert COVFLURSV) NEGATIVE 09/20/2023 16:34 EST Flu B (GXpert COVFLURSV) Neg-GeneXPert 09/20/2023 16:34 EST RSV (GXpert COVFLURSV) Neg-GeneXPert 09/20/2023 16:34 EST Patient/Gear Grinder Signature Patient Name:KIRK PARISH I have received this information and my questions have been answered. Patient/Gear Grinder Name: Patient/Gear Grinder Signature: Relationship to Patient: Witness Name/Signature: Date: Electronically Signed on: 09/20/2023 18:28 ESTSigned by:TRM Emergency department Note * SameerTina H: PERFORM Event Display: ED Notes Authored Date: [id number] Patient Care team information Care Team Personnel Name: Kay Caldwell MD Position: Physician Member Role: Informed Provider Address: Address: [place], [place] [address] Name: Evelyne Mayers RN Position: Nurse Member Role: ED Nurse Name: Bruno Franco MD Position: Physician Member Role: ED Physician Address: Address: [facility] [address] [place] [address]- Care Team Related Persons Name: ANNIE PARISH Address: [address] [id number]
--- OUTSIDE RECORDS SUMMARY | 2024-09-18 01:15 | XMS_ITS | Continuity of Care Document ---
Author Organization [facility] Address [address] [place] [address] Care Team Providers Care Green Meat Packer Name Role Phone Kay Caldwell Primary Care Physician [phone] Encounter [facility] Date(s): 04/24/24 - 04/24/24 [facility] [address] [place] [address] Discharge Disposition: Home Allergies, Adverse Reactions, Alerts Substance Reaction Severity Status doxycycline Unknown Active morphine Unknown Active DULoxetine Itching Unknown Active Assessment and Plan Future Appointments Future Scheduled Tests Radiology* MG Mammo Screening Bilateral w/ Karri 04/24/24 * US Extremity Nonvascular Limited Right 04/24/24 Immunizations Given and Recorded Vaccine Date Status Refusal Reason Pneumococcal Conjugate, unspecified form 01/27/24 Recorded SARS-COV-2 (COVID-19) vaccine, unspecifi 01/20/24 Recorded SARS-COV-2 (COVID-19) vaccine, unspecifi 08/05/23 Recorded SARS-COV-2 (COVID-19) vaccine, unspecifi 04/01/23 Recorded SARS-COV-2 (COVID-19) vaccine, unspecifi 09/04/22 Recorded influenza, unspecified formulation 08/05/23 Record ed pneumococcal 20-valent conjugate vaccine 07/30/23 Given SARS-CoV-2 [...] toxoids (Td) adult/adol 03/11/04 Re corded Medications anastrozole 1 mg oral tablet TAKE ONE TABLET BY MOUTH EVERY DAY Start Date: 02/03/24 Status: Ordered clobetasol 0.05% topical ointment See Instructions, PRN as needed, Topical Daily apply a thin film in perineum, # 90 g, 2 Refill(s), Pharmacy: [facility] ([facility] ) Start Date: 03/28/23 Status: Ordered ketoconazole 1% topical shampoo 1 vinnie, Topical, every 3 day, # 200 mL, 3 Refill(s), Pharmacy: [facility] #58, 158, cm, 02/03/24 8:39:00 EDT, Height, 90.5, kg, 02/03/24 8:51:00 EDT, Weight Dosing Start Date: 02/04/24 Status: Ordered lisinopril 10 mg oral tablet 1 tab, Oral, Daily, # 90 tab, 3 Refill(s), Pharmacy: [facility], 157, cm, 09/20/23 16:23:00 EST, Height, 90.22, kg, 09/23/23 9:13:00 EST, Weight Dosing Start Date: 10/17/23 Status: Ordered multivitamin adult, oral tablet 1 tab, Oral, Daily, 0 Refill(s) Start Date: 06/25/22 Status: Ordered nystatin 100,000 units/g topical powder See Instructions, apply a thin layer to ismael affacted area twice daily as needed, # 60 g, 1 Refill(s), [facility]: [facility]) Start Date: 06/27/22 Status: Ordered omeprazole 20 mg oral delayed release capsule 1 cap, Oral, Daily, # 90 cap, 3 Refill(s), Pharmacy: [facility], 158, cm, 02/03/24 8:39:00EDT, Height, 90.5, kg, 02/03/24 8:51:00 EDT, Weight Dosing Start Date: 03/27/24 Status: Ordered Probiotic Formula (Bacillus Coagulans) oral capsule 1 cap, Oral, Daily, # 30 cap, 0 Refill(s) Start Date: 06/25/22 Status: Ordered simvastatin 20 mg oral tablet 1 tab, Oral, every night at bedtime, # 90 tab, 3 Refill(s), Pharmacy: [facility], 157, cm,09/20/23 16:23:00 EST, Height, 90.22, kg, 09/23/23 9:13:00 EST, Weight Dosing Start Date: 01/15/24 Status: Ordered venlafaxine 25 mg oral tablet [...] tendinitis Confirmed Active Depressive disorder Confirmed Active Gastroesophageal reflux disease Confirmed Active [...] diverticulosis, grade 1 internal hemorrhoids 5Right, [facility] [place] [facility]; [facility] Social History Social History Type Response Tobacco Former tobacco user Tobacco Use:. 1 Sex Female 1Quit 1987 Patient Care team information Care Team Personnel Name: Kay Caldwell MD Position: Physician Member Role: Informed Provider Address: Address: [address] [place] [address] [place] [address]- Care Team Related Persons Name: ANNIE PARISH Address: Home [address] [place] [address], [phone]
--- OUTSIDE RECORDS SUMMARY | 2024-09-18 01:15 | XMS_ITS | Continuity of Care Document ---
Author Organization [facility] Address [address] [place] [address] Care Team Providers Care Reconciliation Machine Operator Name Role Phone Kay Caldwell Primary Care Physician [facility] 09/03/22 - 09/03/22 [facility] [address] [place] [address] Discharge Disposition: Home or Self Care Attending Physician: Kay Caldwell MD Admitting Physician: Kay Caldwell MD Referring Physician: Kay Caldwell MD Allergies, Adverse Reactions, Alerts Substance Reaction Severity Status doxycycline Unknown Active morphine Unknown Active DULoxetine Itching Unknown Active Assessment and Plan Future Appointments Immunizations Given and Recorded Vaccine Date Status Refusal Reason SARS-CoV-2 (COVID-19) mRNA-1273 vaccine 02/19/22 R ecorded [...] Re corded Medications clobetasol 0.05% topical ointment Topical, Daily, PRN as needed, 60 g, 0 Refill(s) Start Date: 06/25/22 Status: Ordered lisinopril 10 mg oral tablet 1 tab, Oral, Daily, 90 tab, 0 Refill(s) Start Date: 06/25/22 Status: Ordered multivitamin adult, oral tablet 1 tab, Oral, Daily, 0 Refill(s) Start Date: 06/25/22 Status: Ordered nystatin 100,000 units/g topical powder See Instructions, apply a thin layer to ismael affacted area twice daily as needed, # 60 g, 1 Refill(s), Pharmacy: [facility]) Start Date: 06/27/22 Status: Ordered omeprazole 20 mg oral delayed release capsule 20 mg = 1 cap, Oral, Daily, # 90 cap, 3 Refill(s), [facility]) Start Date: 05/08/22 Status: Ordered pregabalin 75 mg oral capsule 75 mg = 1 cap, Oral, BID, increased dose from 25mg BID to 75mg BID, # 60 cap, 0 Refill(s), Pharmacy: [facility] Start Date: 07/24/22 Status: Ordered Premarin Oral, Daily, check dose, 0 Refill(s) Start Date: 06/25/22 Status: Ordered Probiotic Formula (Bacillus Coagulans) oral capsule 1 cap, Oral, Daily, # 30 cap, 0 Refill(s) Start Date: 06/25/22 Status: Ordered QUEtiapine 25 mg oral tablet 25 mg = 1 tab, Oral, Daily, # 90 tab, 0 Refill(s) Start Date: 06/25/22 Status: Ordered simvastatin 20 mg oral tablet 20 mg = 1 tab, Oral, every night at bedtime, # 90 tab, 0 Refill(s) Start Date: 06/25/22 Status: Ordered venlafaxine 25 mg oral tablet [...] Confirmed 09/12/21 Active Lichen sclerosus Confirmed Active Osteoarthritis Confirmed Active Overactive bladder Confirmed Active Triceps tendinitis Confirmed Active Procedures Procedure Date Related Diagnosis Body Site Status Colonoscopy 1 02/28/22 Completed Cystoscopy 2 10/24/21 Completed Laparoscopic lysis of adhesions 10/24/21 Completed Laparoscopic partial colectomy 10/24/21 Completed Colonoscopy 3 10/23/21 Completed Knee replacement 4 02/11/06 Comple debbi Fixed suspension procedure o f bladder neck 02/08/06 Completed Knee replacement 5 07/11/04 Comple debbi Hysterectomy 6 11/10/84 Completed Appendectomy Completed Tonsillectomy Completed 1mild diverticular change, mild internal hemorrhoids 2With bilat uerteral cath/stent placement 3sigmoid stricture, fibrosis, polyps, diverticulosis, grade 1 internal hemorrhoids 4Right, in [place] 5[facility] 6[place]; BSO Results Laboratory List Name Date Urinalysis with Micro if Indicated and C ulture if Indicated 09/03/22 Most recent to oldest [Reference Range]: 1 UA Color Yellow (09/03/22 11:58 AM) UA Urobilinogen Normal (09/03/22 11:58 AM) UA Bili [Negative] Negative (09/03/22 11:58 AM) UA Ketones Negative (09/03/22 11:58 AM) UA Leuk Est Negative (09/03/22 11:58 AM) UA Nitrite Negative (09/03/22 11:58 AM) UA Glucose [Negative] Negative (09/03/22 11:58 AM) UA Protein Negative (09/03/22 11:58 AM) UA Blood Negative (09/03/22 11:58 AM) UA Spec Grav 1.015 *NA* (09/03/22 11:58 AM) UA pH 6.0 *NA* (09/03/22 11:58 AM) UA Appear Clear (09/03/22 11:58 AM) Social History Social History Type Response Tobacco Former tobacco user Tobacco Use:. 1 Sex Female 1Quit 1987 Patient Care team information Personnel Name: Kay Caldwell MD Address: Address: [place] [address]- [place]
--- OUTSIDE RECORDS SUMMARY | 2024-09-18 01:15 | XMS_ITS | Continuity of Care Document ---
Author Organization [facility] Address [address] [place] [address] Care Team Providers Care Renewable Energy Broker Name Role Phone Kay Caldwell Primary Care Physician Encounter [facility] Date(s): 01/31/23 - 01/31/[address] [address] Discharge Disposition: Home or Self Care Attending [...] 0 Refill(s) Start Date: 06/25/22 Status: Ordered ketoconazole 1% topical shampoo 1 vinnie, Topical, every 3 day, # 200 mL, 0 Refill(s), Pharmacy: [facility] Start Date: 01/29/23 Status: Ordered lisinopril 10 mg oral tablet 1 tab, Oral, Daily, # 90 tab, 3 Refill(s), [facility]: [facility] ([facility]) Start Date: 11/15/22 Status: Ordered multivitamin adult, oral tablet 1 tab, Oral, Daily, 0 Refill(s) Start Date: 06/25/22 Status: Ordered nystatin 100,000 units/g topical powder See Instructions, apply a thin layer to ismael affacted area twice daily as needed, # 60 g, 1 Refill(s), [facility]acy: [facility]) Start Date: 06/27/22 Status: Ordered omeprazole 20 mg oral delayed release capsule 20 mg = 1 cap, Oral, Daily, # 90 cap, 3 Refill(s), Pharmacy: [facility]) Start Date: 05/08/22 Status: Ordered Premarin Oral, Daily, check dose, [...] diverticulosis, grade 1 internal hemorrhoids 4Right, in [place] 5left 6[place]; BSO Results Laboratory List Name Date Automated Diff 01/31/23 CBC w/ Diff 01/31/23 Comprehensive Metabolic Panel (CMP) 01/31 Hemoglobin A1c 01/31/23 Lipid Panel 01/31/23 Most recent to oldest [Reference Range]: 1 WBC [5.0-10.0 x10^3/mcL] 5.5 x10^3/mcL (01/31/23 7:09 AM) RBC [4.1-5.3 x10^6/mcL] 4.7 x10^6/mcL (01/31/23 7:09 AM) Neutro Auto [40.0-75.0 %] 59.3 % (01/31/23 7:09 AM) Lymph Auto [20.0-50.0 %] 25.3 % (01/31/23 7:09 AM) [place] Auto [2.0-15.0 %] 9.6 % (01/31/23 7:09 AM) Basophil Auto [0.0-1.0 %] 0.7 % (01/31/23 7:09 AM) BUN [7-18 mg/dL] 21 mg/dL *HI* (01/31/23 7:09 AM) Cholesterol Total [50-200 mg/dL] 207 mg/ dL *HI* (01/31/23 7:09 AM) LDL [0-130 mg/dL] 109 mg/dL (01/31/23 7:09 AM) Glucose Level [74-106 mg/dL] 118 mg/dL *HI* (01/31/23 709 AM) Potassium Level [3.5-5.1 mmol/L] 4.5 mmo l/L (01/31/23 7:09 AM) MCV [80.0-96.0] 91.4 (01/31/2309 AM) HDL [40-60 mg/dL] 89 mg/dL *HI* (01/31/23 709 AM) AST [15-37 unit/L] 20 unit/L (01/31/2309 AM) ALT [14-59 unit/L] 22 unit/L (01/31/23 7:09 AM) MCHC [31.0-35.0 g/dL] 31.9 g/dL (01/31/23 709 AM) Sodium Level [136-145 mmol/L] 139 mmol/L (01/31/23 7:09 AM) Hct [37.0-47.0 %] 42.6 % (01/31/23 7:09 AM) Triglycerides [0-150 mg/dL] 45 mg/dL (01/31/23 7:09 AM) Calcium Level [8.5-10.1 mg/dL] 9.3 mg/dL (01/31/23 7:09 AM) Albumin Level [3.4-5.0 g/dL] 3.4 g/dL (01/31/23 7:09 AM) Protein Total [6.4-8.2 g/dL] 6.8 g/dL (01/31/23 7:09 AM) MCH [26.0-32.0 pg] 29.2 pg (01/31/23 7:09 AM) Neutro Absolute 3.3 x10^3/mcL *NA* (01/31/23 7:09 AM) Bilirubin Total [0.2-1.0 mg/dL] 0.6 mg/d L (01/31/23 7:09 AM) Hgb [12.0-16.0 g/dL] 13.6 g/dL (01/31/23 7:09 AM) Alk Phos [46-146 unit/L] 67 unit/L (01/31/23 7:09 AM) Platelets [130-450 x10^3/mcL] 228 x10^3/ mcL (01/31/23 7:09 AM) CO2 [21-32 mmol/L] 32 mmol/L (01/31/23 7:09 AM) eGFR Non-AA [>=60] 69 (01/31/23 7:09 AM) eGFR AA [>=60] 69 (01/31/23 7:09 AM) Hemoglobin A1c [4.0-6.0 %] 6.0 % (01/31/23 7:09 AM) Chloride Level [98-107 mmol/L] 102 mmol/ L (01/31/23 7:09 AM) RDW-CV [11.7-17.0 %] 13.3 % (01/31/23 7:09 AM) Imm Gran Auto [0.0-0.9 %] 0.2 % (01/31/23 7:09 AM) Creatinine Level [0.55-1.02 mg/dL] 0.87 mg/dL (01/31/23 7:09 AM) Eos, Auto [1.0-6.0 %] 4.9 % (01/31/23 7:09 AM) Social History Social History Type Response Tobacco Former tobacco user Tobacco Use:. 1 Sex Female 1Quit 1987 Patient Care team information Care Team Personnel Name: Kay Caldwell MD Position: Physician Member Role: Primary Care Physician Address: Address: [place] [address]- Care Team Related Persons Name: ANNIE PARISH Address: Home
--- OUTSIDE RECORDS SUMMARY | 2024-09-18 01:15 | XMS_ITS | Continuity of Care Document ---
Author Organization [facility] Address [address] [place] [address] Care Team Providers Care Channel Business Manager Name Role Phone Kay Caldwell Primary Care Physician Encounter [facility] Date(s): 08/02/23 - 08/02/23 [facility] [address] [place] [address] Discharge Disposition: Home Allergies, Adverse Reactions, Alerts [...] day, # 200 mL, 0 Refill(s), Pharmacy: [facility] Start Date: 01/29/23 Status: Ordered lisinopril [...] diverticulosis, grade 1 internal hemorrhoids 5Right, in [place] [address]left [address] [place] [address]; BSO Social History Social History Type Response Tobacco Former tobacco user Tobacco Use:. 1 Sex Female 1Quit 1987 Patient Care team information Care Team Personnel Name: Kay Caldwell MD Position: Physician Member Role: Primary Care Physician Address: Address: [place] [address]- Care Team Related Persons Name: ANNIE PARISH
--- OUTSIDE RECORDS SUMMARY | 2024-09-18 01:15 | XMS_ITS | Continuity of Care Document ---
Author Organization [facility] Address [address] [place] [address] Care Team Providers Care Director Cpg Name Role Phone Kay Caldwell Primary Care Physician [phone] Encounter [facility] Date(s): 04/24/24 - 04/24/24 [facility] [address] [place] [address] Discharge Disposition: Home Allergies, Adverse Reactions, Alerts [...] g, 2 Refill(s), [facility] ) Start Date: 03/28/23 Status: Ordered ketoconazole 1% topical shampoo 1 vinnie, Topical, every 3 day, # 200 mL, 3 Refill(s), Pharmacy: [facility], 158, cm, 02/03/24 8:39:00 EDT, Height, 90.5, kg, 02/03/24 8:51:00 EDT, Weight Dosing Start Date: 02/04/24 Status: Ordered lisinopril 10 mg oral tablet 1 tab, Oral, Daily, # 90 tab, 3 Refill(s), Pharmacy: [facility], 157, cm, 09/20/23 16:23:00 EST, Height, 90.22, kg, 09/23/23 9:13:00 EST, Weight Dosing Start Date: 10/17/23 Status: Ordered multivitamin adult, oral tablet 1 tab, Oral, Daily, 0 Refill(s) Start Date: 06/25/22 Status: Ordered nystatin 100,000 units/g topical powder See Instructions, apply a thin layer to ismael affacted area twice daily as needed, # 60 g, 1 Refill(s), [facility]: [facility]) Start Date: [...] 1 internal hemorrhoids 5Right, in [place] 6[facility]; BSO Social History Social History Type Response Tobacco Former tobacco user Tobacco Use:. 1 Sex Female 1Quit 1987 Patient Care team information Care Team Personnel Name: Kay aCldwell MD Position: Physician Member Role: Informed Provider Address: Address: [address] [place] [address] [place] [address]- Care Team Related Persons Name: ANNIE PARISH Address: Home [address] [place] [address], [phone]
--- OUTSIDE RECORDS SUMMARY | 2024-09-18 01:15 | XMS_ITS | Continuity of Care Document ---
Author Organization [facility] Address [address] [place] [address] Care Team Providers Care Handicraft Or Hobby Shop Manager Name Role Phone Kay Caldwell Primary Care Physician Encounter [facility] Date(s): 08/02/23 - 08/02/23 [facility] [address] [place] [address] Discharge Disposition: Home Allergies, Adverse Reactions, Alerts [...] day, # 200 mL, 0 Refill(s), Pharmacy: [facility] #[facility] Start Date: 01/29/23 Status: Ordered lisinopril [...] diverticulosis, grade 1 internal hemorrhoids 5Right, in [place] 6left [address] [place] [address]; BSO Social History Social History Type Response Tobacco Former tobacco user Tobacco Use:. 1 Sex Female 1Quit 1987 Patient Care team information Care Team Personnel Name: Kay Caldwell MD Position: Physician Member Role: Primary Care Physician Address: Address: [place] [address]- Care Team Related Persons Name: ANNIE PARISH
--- OUTSIDE RECORDS SUMMARY | 2024-09-18 01:15 | XMS_ITS | Continuity of Care Document ---
Author Organization [facility] Address [address] [place] [address] Care Team Providers Care Prizer Hand Name Role Phone Kay Calwdell Primary Care Physician Encounter [facility] Date(s): 11/14/23 - 11/14/[address] [address] Discharge Disposition: Home or Self Care Attending Physician: Nichole Fowler MD Admitting Physician: Nichole Fowler MD Referring Physician: Kay Caldwell MD Allergies, [...] vaccine, inactivated 02/28/18 Recorded zoster vaccine, inactivated 2/21/18 Recorded pneumococcal 13-valent conjugate vaccine 08/16/16 Recorded pneumococcal 23-polyvalent vaccine 07/23/11 Record ed zoster vaccine live 05/20/08 Recorded tetanus-diphth toxoids (Td) adult/adol 03/11/04 Re corded Medications clobetasol 0.05% topical ointment See Instructions, PRN as needed, Topical Daily apply a thin film in perineum, # 90 g, 2 Refill(s), [facility] ) Start Date: 03/28/23 Status: Ordered ketoconazole 1% topical shampoo 1 vinnie, Topical, every 3 day, # 200 mL, 0 Refill(s), Pharmacy: [facility] Start Date: 01/29/23 Status: Ordered lisinopril [...] needed, # 60 g, 1 Refill(s), [facility] ([facility]) Start Date: 06/27/22 Status: Ordered omeprazole 20 mg oral delayed release capsule 1 cap, Oral, Daily, # 90 cap, 3 Refill(s), Pharmacy: [facility]) Start Date: 05/02/23 Status: Ordered Premarin 0.625 mg/g vaginal cream with applicator See Instructions, 1 g VAG 2-3 times weekly, # 30 g, 2 Refill(s), Pharmacy: [facility] ) Start Date: 03/28/23 Status: Ordered Probiotic Formula (Bacillus Coagulans) oral capsule 1 cap, Oral, Daily, # 30 cap, 0 Refill(s) Start Date: 06/25/22 Status: Ordered simvastatin 20 mg oral tablet 20 mg = 1 tab, Oral, every night at bedtime, # 90 tab, 3 Refill(s), [facility] ) Start Date: 02/19/23 Status: [...] diverticulosis, grade 1 internal hemorrhoids 5Right, in [place] 6left 7[place]; BSO Social History Social History Type Response Tobacco Former tobacco user Tobacco Use:. 1 Sex Female 1Quit 1987 Patient Care team information Care Team Personnel Name: Kay Caldwell MD Position: Physician Member Role: Informed Provider Address: Address: [place] [facility], [place] [address] [place] [address] Care Team Related Persons Name: ANNIE PARISH Address: Home [address] [place] [address], [id number]
--- OUTSIDE RECORDS SUMMARY | 2024-09-18 01:15 | XMS_ITS | Continuity of Care Document ---
Author Organization [facility] Address [address] [place] [address] Care Team Providers Care Residential Treatment Staff Name Role Phone Kay Caldwell Primary Care Physician [facility] - 04/10/[address] [address] Encounter Diagnosis Breast cancer in female(Discharge Diagnosis) - 04/10/24 Discharge Disposition: Home or Self Care Attending [...] perineum, # 90 g, 2 Refill(s), [facility] ([facility] ) Start Date: 03/28/23 Status: Ordered ketoconazole 1% topical shampoo 1 vinnie, Topical, every 3 day, # 200 mL, 3 Refill(s), Pharmacy: [facility] #58, 158, cm, 02/03/24 8:39:00 EDT, Height, 90.5, kg, 02/03/24 8:51:00 EDT, Weight Dosing Start Date: 02/04/24 Status: Ordered lisinopril 10 mg oral tablet 1 tab, Oral, Daily, # 90 tab, 3 Refill(s), Pharmacy: [facility], 157, cm, 09/20/23 16:23:00 EST, Height, 90.22, kg, 09/23/23 9:13:00 EST, Weight Dosing Start Date: 10/17/23 Status: Ordered multivitamin adult, oral tablet 1 tab, Oral, Daily, 0 Refill(s) Start Date: 06/25/22 Status: Ordered nystatin 100,000 units/g topical powder See Instructions, apply a thin layer to ismael affacted area twice daily as needed, # 60 g, 1 Refill(s), Pharmacy: [facility] ([facility]) Start Date: [...] internal hemorrhoids 5Right, in [place] 6left 7[place]; BSO Social History Social History Type Response Tobacco Former tobacco user Tobacco Use:. 1 Sex Female 1Quit 1987 Patient Care team information Care Team Personnel Name: Kay Caldwell MD Position: Physician Member Role: Informed Provider Address: Address: [address] [place] [address] [place] [address]- Care Team Related Persons Name: ANNIE PARISH Address: Home [address] [place] [address] [place], [phone]
--- OUTSIDE RECORDS SUMMARY | 2024-09-18 01:15 | XMS_ITS | Continuity of Care Document ---
Author Organization [facility] Address [address] [place] [address] Care Team Providers Care Power And Recovery Superintendent Name Role Phone Kay Caldwell Primary Care Physician [phone] [facility] 08/[facility]/23 - 08/09/[address] [address] Encounter Diagnosis Breast mass, right(Discharge Diagnosis) - 08/09/23 Discharge Disposition: Home or Self Care Attending [...] day, # 200 mL, 0 Refill(s), Pharmacy: [facility]58 Start Date: 01/29/23 Status: Ordered lisinopril [...] diverticulosis, grade 1 internal hemorrhoids 5Right, in [place] 6left 7[place]; BSO Social History Social History Type Response Tobacco Former tobacco user Tobacco Use:. 1 Sex Female 1Quit 1987 Patient Care team information Care Team Personnel Name: Kay Caldwell MD Position: Physician Member Role: Primary Care Physician Address: Address: [place] [address]- Care Team Related Persons Name: ANNIE PARISH
--- OUTSIDE RECORDS SUMMARY | 2024-09-18 01:15 | XMS_ITS | Continuity of Care Document ---
Author Organization [facility] Address [address] [place] [address] Care Team Providers Care Corporate Safety Coordinator Name Role Phone Kay Caldwell Primary Care Physician [facility] Date(s): 08/01/23 - 08/01/[address] [address] Encounter Diagnosis Screening mammogram for breast cancer(Discharge Diagnosis) - 08/01/23 Discharge Disposition: Home or Self Care Attending [...] day, # 200 mL, 0 Refill(s), Pharmacy: [facility] Start Date: 01/29/23 Status: Ordered lisinopril [...] diverticulosis, grade 1 internal hemorrhoids 5Right, in [place] 6left 7[place]; BSO Social History Social History Type Response Tobacco Former tobacco user Tobacco Use:. 1 Sex Female 1Quit 1987 Patient Care team information Care Team Personnel Name: Kay Caldwell MD Position: Physician Member Role: Primary Care Physician Address: Address: [place] [address]- Care Team Related Persons Name: ANNIE PARISH
--- OUTSIDE RECORDS SUMMARY | 2024-09-18 01:15 | XMS_ITS | Continuity of Care Document ---
Author Organization [facility] Address [address] [place] [address] Care Team Providers Care News Correspondent Name Role Phone Kay Caldwell Primary Care Physician [phone] Encounter [facility] Date(s): 07/30/23 - 07/30/23 [facility] [address] [place] [address] Discharge Disposition: Home Allergies, Adverse Reactions, Alerts Substance Reaction Severity Status doxycycline Unknown Active morphine Unknown Active DULoxetine Itching Unknown Active Assessment and Plan Future Appointments Future Scheduled Tests Radiology* MG Mammo Screening Bilateral w/ Karri 07/30/23 Immunizations Given and Recorded Vaccine Date Status [...] day, # 200 mL, 0 Refill(s), Pharmacy: [facility] #[facility] Start Date: 01/29/23 Status: Ordered lisinopril [...] Delivery ([facility] ) Start Date: 4/11/23 Status: Ordered venlafaxine 25 mg oral tablet [...] diverticulosis, grade 1 internal hemorrhoids 5Right, in [place] 6left [address] [place] [address]; BSO Social History Social History Type Response Tobacco Former tobacco user Tobacco Use:. 1 Sex Female 1Quit 1987 Patient Care team information Care Team Personnel Name: Kay Caldwell MD Position: Physician Member Role: Primary Care Physician Address: Address: [place] [address]- Care Team Related Persons Name: ANNIE PARISH
--- OUTSIDE RECORDS SUMMARY | 2024-09-18 01:15 | XMS_ITS | Continuity of Care Document ---
Author Organization [facility] Address [address] [place] [address] Care Team Providers Care Dental Manager Name Role Phone Kay Caldwell Primary Care Physician [phone] Encounter [facility] Date(s): 12/04/23 - 12/04/[address] [address] Discharge Disposition: Home or Self Care Attending [...] g, 2 Refill(s), [facility] ([facility] ) Start Date: 03/28/23 Status: Ordered ketoconazole 1% topical shampoo 1 vinnie, Topical, every 3 day, # 200 mL, 0 Refill(s), Pharmacy: [facility] Start Date: 01/29/23 Status: Ordered lisinopril [...] needed, # 60 g, 1 Refill(s), Pharm[facility] ([facility]) Start Date: 06/27/22 Status: Ordered omeprazole 20 mg oral delayed release capsule 1 cap, Oral, Daily, # 90 cap, 3 Refill(s), Pharmacy: [facility] ([facility]) Start Date: 05/02/23 Status: Ordered Premarin 0.625 mg/g vaginal cream with applicator See Instructions, 1 g VAG 2-3 times weekly, # 30 g, 2 Refill(s), Pharmacy: [facility] ([facility] ) Start Date: 03/28/23 Status: Ordered Probiotic Formula (Bacillus Coagulans) oral capsule 1 cap, Oral, Daily, # 30 cap, 0 Refill(s) Start Date: 06/25/22 Status: Ordered simvastatin 20 mg oral tablet 20 mg = 1 tab, Oral, every night at bedtime, # 90 tab, 3 Refill(s), [facility] ([email or web address] ) Start Date: 02/19/23 Status: [...] 1 internal hemorrhoids 5Right, in [place] 6left 7[place]; BSO Social History Social History Type Response Tobacco Former tobacco user Tobacco Use:. 1 Sex Female 1Quit 1987 Patient Care team information Care Team Personnel Name: Kay Caldwell MD Position: Physician Member Role: Informed Provider Address: Address: [place] [address]- [place] Care Team Related Persons Name: ANNIE PARISH Address: Home [address] [place] [address], [phone]
--- OUTSIDE RECORDS SUMMARY | 2024-09-18 01:15 | XMS_ITS | Continuity of Care Document ---
Author Organization [facility] Address [address] [place] [address] Care Team Providers Care Turbine Room Attendant Name Role Phone Kay Caldwell Primary Care Physician Encounter [place] Date(s): 08/03/24 - 08/03/[address] [address] Encounter Diagnosis Breast cancer in female(Discharge Diagnosis) - 08/03/24 Mass of axilla(Discharge Diagnosis) - 08/03/24 Discharge Disposition: Home or Self Care Attending Physician: Kay Caldwell MD Admitting Physician: Kay Caldwell MD Referring Physician: Kay Caldwell MD Allergies, Adverse Reactions, Alerts Substance Criticality Severity Reaction Reaction Severity Status doxycycline Unable to assess criticality Unknown Active morphine Unable to assess criticality Unknown Active DULoxetine Unable to assess criticality Unknown Itching Active Assessment and Plan Future Appointments Immunizations [...] perineum, # 90 g, 2 Refill(s), [facility] ) Start Date: 03/28/23 Status: Ordered ketoconazole 1% topical shampoo 1 vinnie, Topical, every 3 day, # 200 mL, 3 Refill(s), Pharmacy: [facility], 158, cm, 02/03/24 8:39:00 EDT, Height, 90.5, kg, 02/03/24 8:51:00 EDT, Weight Dosing Start Date: 02/04/24 Status: Ordered lisinopril 10 mg oral tablet 1 tab, Oral, Daily, # 90 tab, 3 Refill(s), [facility], 157, cm, 09/20/23 16:23:00 EST, Height, 90.22, kg, 09/23/23 9:13:00 EST, Weight Dosing Start Date: 10/17/23 Status: Ordered multivitamin adult, oral tablet 1 tab, Oral, Daily, 0 Refill(s) Start Date: 06/25/22 Status: Ordered nystatin 100,000 units/g topical powder See Instructions, apply a thin layer to ismael affacted area twice daily as needed, # 60 g, 1 Refill(s), Pharmacy[facility] ([facility]) Start Date: [...] bedtime, # 90 tab, 3 Refill(s), [facility], 157, cm,09/20/23 16:23:00 EST, Height, [...] diverticulosis, grade 1 internal hemorrhoids 5Right, in [place] 6left 7[place]; BSO Social History Social History Type Response Tobacco Former tobacco user Tobacco Use:. 1 Sex Female Sex Representation Female (finding) 1Quit 1987 Patient Care team information Care Team Personnel Name: Kay Caldwell MD Position: Physician Member Role: Informed Provider Address: [address] [place] [address] [address] Care Team Related Persons Name: ANNIE PARISH Insurance Providers Guarantor name: KIRK PARISH Health Plan Information #: 1 Payer: MEDICARE B [employer] Member Number: [id number] Policy Number: NA Health Plan Information #: 2 Payer: [place] [employer]MENT Member Number: [id number] Policy Number: NA
--- OUTSIDE RECORDS SUMMARY | 2024-09-18 01:15 | XMS_ITS | Continuity of Care Document ---
Author Organization [facility] Address [address] [place] [address] Care Team Providers Care Brake Drum Lathe Operator Name Role Phone Kay Caldwell Primary Care Physician Encounter [place] Date(s): 04/24/24 - 04/24/24 [facility] [address] [place] [address] Discharge Disposition: Home Allergies, Adverse Reactions, Alerts [...] g, 2 Refill(s), [facility] ) Start Date: 03/28/23 Status: Ordered ketoconazole 1% topical shampoo 1 vinnie, Topical, every 3 day, # 200 mL, 3 Refill(s), Pharmacy: [facility], 158, cm, 02/03/24 8:39:00 EDT, Height, 90.5, kg, 02/03/24 8:51:00 EDT, Weight Dosing Start Date: 02/04/24 Status: Ordered lisinopril 10 mg oral tablet 1 tab, Oral, Daily, # 90 tab, 3 Refill(s), [facility]acy: [facility], 157, cm, 09/20/23 16:23:00 EST, Height, 90.22, kg, 09/23/23 9:13:00 EST, Weight Dosing Start Date: 10/17/23 Status: Ordered multivitamin adult, oral tablet 1 tab, Oral, Daily, 0 Refill(s) Start Date: 06/25/22 Status: Ordered nystatin 100,000 units/g topical powder See Instructions, apply a thin layer to ismael affacted area twice daily as needed, # 60 g, 1 Refill(s), [facility]) Start Date: [...] diverticulosis, grade 1 internal hemorrhoids 5Right, [facility] [place] [facility]; B[facility] Social History Social History Type Response Tobacco Former tobacco user Tobacco Use:. 1 Sex Female 1Quit 1987 Patient Care team information Care Team Personnel Name: Kay Caldwell MD Position: Physician Member Role: Informed Provider Address: Address: [address] [place] [address] [place] [address]- Care Team Related Persons Name: ANNIE PARISH Address: Home [address] [place] [address], [phone]
--- OUTSIDE RECORDS SUMMARY | 2024-09-18 01:15 | XMS_ITS | Continuity of Care Document ---
Author Organization [facility] Address [address] [place] [address] Care Team Providers Care Associate Product Integrity Engineer Name Role Phone Kay Caldwell Primary Care Physician [phone] Encounter [place] Date(s): 02/04/24 - 02/04/24 [facility] [address] [place] [address] Discharge Disposition: Home Allergies, Adverse Reactions, Alerts Substance Reaction Severity Status doxycycline Unknown Active morphine Unknown Active DULoxetine Itching Unknown Active Assessment and Plan Future Appointments Future Scheduled Tests Radiology* MG Mammo Diagnostic Right w/ Karri 02/04/24 Immunizations Given and Recorded Vaccine Date Status [...] perineum, # 90 g, 2 Refill(s), [facility] ) Start Date: 03/28/23 Status: Ordered ketoconazole 1% topical shampoo 1 vinnie, Topical, every 3 day, # 200 mL, 3 Refill(s), Pharmacy: [facility], 158, cm, 02/03/24 8:39:00 EDT, Height, [...] needed, # 60 g, 1 Refill(s), [facility]acy: [facility] ([facility]) Start Date: 06/27/22 Status: Ordered omeprazole 20 mg oral delayed release capsule 1 cap, Oral, Daily, # 90 cap, 3 Refill(s), [facility]) Start Date: 05/02/23 Status: Ordered Probiotic Formula (Bacillus Coagulans) oral [...] diverticulosis, grade 1 internal hemorrhoids 5Right, [facility] [place] [facility]; [facility] Social History Social History Type Response Tobacco Former tobacco user Tobacco Use:. 1 Sex Female 1Quit 1987 Patient Care team information Care Team Personnel Name: Kay Caldwell MD Position: Physician Member Role: Informed Provider Address: Address: [address] [place] [address]- Care Team Related Persons Name: ANNIE PARISH Address: Home [address] [place] [address], [phone]
--- OUTSIDE RECORDS SUMMARY | 2024-09-18 01:16 | XMS_ITS | Encounter Summary ---
[place] [address] Care Team Providers Care Straightener Hand Name Role Phone Kay Caldwell MD Primary Care Provider [phone] Reason for Visit * Physical Therapy (Routine) - Authorized Specialty Diagnoses / Procedures Referred By Charli hardy Referred To Contact [facility] Diagnoses Left shoulder pain, unspecified chronicity Jazmín Santiago, [facility] [place] [place] [address] Gene Julien Jr., PT Referral ID Status Reason Start Date Expiration Date Visits Requested Visits Authorized [id number] Authorized Evaluate and Treat 07/24/2024 07/24/2025 12 12 Encounter Details Date Type Department Care Team (Late st Contact Info) Description 09/02/2024 11:00 AM EDT Office Visit [place] [address] Gene Julien Jr., PT Left shoulder pain, unspecified chronicity; Radiculopathy of cervical region Social History Tobacco Use Types Packs/Day Years Used Date Smoking Tobacco: Former Cigarettes 2 15 0 11/11/1973 - 11/11/1988 Smokeless Tobacco: Never Comments:10-15 years quit 35 years ago Alcohol Use Standard Drinks/Week Comments Not Currently 0 (1 standard drink = 0.6 oz pur e alcohol) Recovering [address] [facility] Utilities Answer Date Recorded In the past 12 months has [employer], oil, or water [employer] threatened to shut off services in your home? No 10/28/2023 Overall Financial Resource Strain (CARDIA) Answe r Date Recorded How hard is it for you to pa y for the very basics like food, housing, medical care, and heating? Not hard at all 10/28/2023 Hunger Vital Sign Answer Date Recorded Within the past 12 months, y ou worried that your food would run out before you got the money to buy more. Never true 10/28/20 23 Within the past 12 months, t he food you bought just didn't last and you didn't have money to get more. Never true 10/28/2023 PRAPARE - Transportation Answer Date Re corded In the past 12 months, has l ack of transportation kept you from medical appointments or from getting medications? No 10/11 In the past 12 months, has l ack of transportation kept you from meetings, work, or from getting things needed for daily living? No 10/28/2023 Housing Stability Vital Sign Answer Julián e Recorded In the last 12 months, was t here a time when you were not able to pay the mortgage or rent on time? No 10/28/2023 In the last 12 months, how many places have you lived? 1 10/28/2023 In the last 12 months, was t here a time when you did not have a steady place to sleep or slept in a alf (including now)? No 10/28/2023 Sex and Gender Information Value Date Recorded Sex Assigned at Not on file Gender Identity Not on file Sexual Orientation Not on file documented as of this encounter Miscellaneous Notes * Initial Evaluation - Gene Julien Jr., PT - 09/02/2024 11:00 AM EDT [facility] Initial Evaluation Note Subjective: History of Present Condition: Josselyn Garduno was referred by Jazmín Santiago to Physical Therapywith a history of L Shld Pain. Patient reported insidious onset of L Shld Pain that has gotten progressively worse. Patient reported she has had an injection in her L Shld which has helped. Patient was referred to OPPT. Chief Complaint: Currently Patient c/o L Sided Neck, L Upper Trap, L Shld & Upper Arm Pain & Tightness rated 8/10 at worst w/ reaching & 0/10 at best at rest. Patient reports Functional Limitations w/ lifting/carrying, reading, sitting, reaching [place], cooking, driving, and sleep is disturbed. Pain Location: L Sided Neck, L Upper Trap, L Shld & Upper Arm Pain & Tightness Pain Scale: Worst: 8 Best: 0 Current: 4 Pain Description: Intermittent Pain Follow-up Plan: Abolish Pain, Reduce C/S Derangement & Restore Functional Mobility Aggravating Factors: Sitting, Standing, Walking, Sit to stand, Bending, Lying Down, Cough/sneeze Complicating/Personal Factors: Mechanism of injury/ Illness (Insidious Onset) Medical History Review: The patient has a history of present problem with a history of 1-2 personal factors and/or comorbidities that impact the plan of care. Mental Status/Cognitive Function Appears Impaired? No Patient Goals: Get Rid of Shld Pain Objectives: Handedness: Right Standing Posture: Forward Head, Rounded Shoulders, Increased Thoracic Kyphosis, Decreased Lumbar Lordosis Movement Loss Cervical: Action Loss Protrusion SMJ Movement Loss: Nil Flexion SMJ Movement Loss: Minimal Retraction SMJ Movement Loss: Major Extension SMJ Movement Loss: Major Side Bend Left SMJ Movement Loss: Moderate Side Bend Right SMJ Movement Loss: Moderate Rotation Left SMJ Movement Loss: Moderate Rotation Right SMJ Movement Loss: Moderate Movement Based Test Movements Cervical: Pretest Symptoms Sitting Symptoms During Testing Symptoms AfterTesting Mechanical Response Repeated Retractions Decrease Better Increased ROM Myotomes Upper: Segment Action Right Left C4 Shoulder abduction 5/5 5/5 C5 Elbow Flexion 5/5 5/5 C6 Wrist Extension 5/5 5/5 C7 Elbow Extension 5/5 5/5 C8 Finger Flexion 5/5 5/5 T1 Finger Abduction 5/5 5/5 (segments are from the International Standards for Neurological Classification of Spinal Cord Injury) Upper Reflexes: Segment Reflex Right Left C5-6 Biceps 2+ 2+ C5-6 Brachioradialis 2+ 2+ C7-8 Triceps 2+ 2+ (0=absent, 1=slight response, 2=brisk/normal, 3=very brisk, 4=clonus) Sensory: Intact to light touch and pinprick at bilateral upper extremities. Special Test: Movement Based Provisional Classification: Derangement L Sided Neck, L Upper Trap, L Shld & Upper Arm Pain & Tightness Movement Based Principle of Management: Lateral Principle Rep L C/S Side Bends followed by L C/S Side Bend Mobs Decreased, Better Rep L Shld IR Decreased, Better Assessment: Josselyn Garduno is a 79 y.o. female w/ signs & symptoms consistent w/ C/S Derangement. Patient demonstrates deficits in C/S AROM, Scapular Strength, Pain, Difficulty w/ADLs and Functional Mobility. Patient is good candidate to benefit from skilled physical therapy with focus on Reduction of Pain, Alleviating ROM Restrictions, UE Reaching Tolerance, Improved Functional Mobility & Reduction in Disability Index. Patient Clinical Presentation: The clinical presentation is evolving with changing characteristics.Patient requires skilled therapy to restore prior level of function utilizing the treatment and modalities described in this plan of care. Patient Education: Patient instructed in HEP(Rep L C/S Side Bends), Sitting w/ L/S Support Roll & Posture. Patient Demonstrates Compliance with Prescribed HEP Following the evaluation and extensive patient education regarding diagnosis, prognosis, and treatment goals, the patient (parent/guardian, power of workers compensation attorney irwin) actively participated in the creation of the current goals and agrees to the current treatment plan. Rehab Potential: Good Contraindications to Therapy: None Short Term Goals: 1: (4 Weeks) Independent in Posture Correction. 2: (4 Weeks) Patient able to Drive w/o c/o pain. 3: (4 Weeks) Patient able to sleep undisturbed by pain. Alf Goals: 1: (8 Weeks) Independent w/ Self Treatment & Symptom Management. 2: (8 Weeks) Patient able to stand at bathroom sink shave, brush his teeth and fix his hair w/o c/o pain. 3: (8 Weeks) Patient able to perform production expediter (cooking, yard work & taking out trash/recycling) w/o c/o pain. Plan: Frequency: 1 time every 4 weeks Duration: 8 weeks Plan: Begin Plan as Outlined Treatment to be provided: Procedures Therapeutic Exercises (ROM, Strength, Stability), Therapeutic Activity (Work Specific, Transfers, Bed Mobility, ADL Specific), Neuromuscular Rehabilitation, Manual Therapy (Spinal Mobilization), Patient Education (Home Exercise Program, Postural Training) Certification of Medical Necessity: It will be understood that the treatment plan mentioned above is certified medically necessary by the documenting therapist and referring physician mentioned in this report. Unless the physician indicates otherwise through written correspondence with our office, all further referrals will act as certification of medical necessity on the treatment plan indicatedabove. Thank you for this referral. If you have questions regarding this plan of care, please contact me at . documented in this encounter Plan of Treatment Upcoming Encounters Date Type Department Care Team (Late st Contact Info) Description 09/18/2024 10:30 AM EST Office Visit Hematology/Oncology at [address] [phone] Erica Yi APRN [address] [place] [address] [place] [address] 09/18/2024 11:00 AM EST Infusion Hematology Oncology at [address] [phone] 10/01/2024 3:45 PM EST Office Visit Functional Denominational Program at [address] [phone] Gene Julien Jr., PT 12/23/2024 8:00 AM EST Appointment XRay at [address] [place] [address] River Ochoa MD [address] [place], [place] [address] 01/21/2025 1:00 PM EDT Office Visit Radiation Oncology at [address] [phone] Tory Salazar PA [facility] HEM[facility] [place] [address] Scheduled Referrals Name Type Priority Associated Diagnoses Orde r Schedule Referral to Physical Therapy Outpatient Referral Routine Left shoulder pain, unspecified chronicity Ordered: 07/24/2024 documented as of this encounter Visit Diagnoses Diagnosis Left shoulder pain, unspecified chronicity Radiculopathy of cervical region Brachial neuritis or radiculitis nos documented in this encounter Care Teams Straightener Hand Relationship Specialty Start Date End Date Kay Caldwell MD [address] [place] [address] [place] [address] PCP - General Family Medicine 08/15/22 documented as of this encounter
--- OUTSIDE RECORDS SUMMARY | 2024-09-18 01:16 | XMS_ITS | Encounter Summary ---
Author Organization [facility] [place] [address] Care Team Providers Care Break And Load Operator Name Role Phone Kay Caldwell MD Primary Care Provider [phone] Encounter Details Date Type Department Care Team (Latest Contact Info) Description 06/24/2024 Travel Social History Tobacco Use Types Packs/Day Years Used Date Smoking Tobacco: Former Cigarettes 2 15 0 11/11/1973 - 11/11/1988 Smokeless Tobacco: Never Comments:10-15 years quit 35 years ago Alcohol Use Standard Drinks/Week Comments Not Currently 0 (1 standard drink = 0.6 oz pur e alcohol) Recovering 41 years [facility] Utilities Answer Date Recorded In the past 12 months has th e electric, gas, oil, or water company threatened to shut off services in your [...] place to sleep or slept in a intermediate (including now)? No 10/28/2023 Sex and Gender Information Value Date Recorded Sex Assigned at Not on file Gender Identity Not on file Sexual Orientation Not on file documented as of this encounter Plan of Treatment Upcoming Encounters Date Type Department Care Team (Late st Contact Info) Description 09/18/2024 10:30 AM EST Office Visit Hematology/Oncology at [address] [phone] Erica Yi APRN [address] [place] [address] DR MEDICAL ONCOLOGY [place] [id number] 09/18/2024 11:00 AM EST Infusion Hematology Oncology at [address] [phone] 10/01/2024 3:45 PM EST Office Visit Functional Voodoo Program at [facility] [address] [place] [address] Gene Julien Jr., PT 12/23/2024 8:00 AM EST Appointment XRay at [address] [place] [address] River Ochoa MD [address] [place], [place] [address] 01/21/2025 1:00 PM EDT Office Visit Radiation Oncology at [address] [phone] [facility] DR [place] [address] documented as of this encounter Visit Diagnoses Not on filedocumented in this encounter Care Teams Break And Load Operator Relationship Specialty Start Date End Date Kay Caldwell MD [address] [place] [address] PCP - General Family Medicine 08/15/22 documented as of this encounter
--- OUTSIDE RECORDS SUMMARY | 2024-09-18 01:16 | XMS_ITS | Continuity of Care Document ---
Author Organization [facility] Address [address] [place] [address] Care Team Providers Care Skin Grader Name Role Phone Kay Caldwell Primary Care Physician [phone] Encounter [facility] Date(s): 08/02/23 - 08/02/[address] [address] Encounter Diagnosis Breast density(Discharge Diagnosis) - 08/02/23 Discharge Disposition: Home or Self Care Attending [...] (Tdap) adult/adol 01/02/22 Recorded tetanus/diphth/pertuss (Tdap) adult/adol 10/31/11 Recorded influenza virus vaccine, live 08/22/20 Recorded [...] day, # 200 mL, 0 Refill(s), Pharmacy: [facility] Start Date: 01/29/23 Status: Ordered lisinopril [...] tab, 3 Refill(s), [facility] Start Date: 02/19/23 Status: [...] 1 internal hemorrhoids 5Right, in [place] 6left 7[place]; BSO Social History Social History Type Response Tobacco Former tobacco user Tobacco Use:. 1 Sex Female 1Quit 1987 Patient Care team information Care Team Personnel Name: Kay Caldwell MD Position: Physician Member Role: Primary Care Physician Address: Address: [place] [address]- [place] Care Team Related Persons Name: ANNIE PARISH
--- OUTSIDE RECORDS SUMMARY | 2024-09-18 01:16 | XMS_ITS | Encounter Summary ---
[facility] Address [facility] [place] [address] Care Team Providers Care Floorhand Name Role Phone Kay Caldwell MD Primary Care Provider [phone] Encounter Details Date Type Department Care Team (Late st Contact Info) Description 07/16/2024 9:30 AM EDT Office Visit Radiation Oncology at [address] [phone] Tory Salazar PA [facility] [place] [address] Malignant neoplasm of upper-inner quadrant of right breast in female, estrogen receptor positive (Primary Dx); S/P radiotherapy Social History Tobacco Use Types Packs/Day Years Used Date Smoking Tobacco: Former Cigarettes 2 15 0 11/11/1973 - 11/11/1988 Smokeless Tobacco: Never Comments:10-15 years quit 35 years ago Alcohol Use Standard Drinks/Week Comments Not Currently 0 (1 standard drink = 0.6 oz pur e alcohol) Recovering 41 years [facility] Utilities Answer Date Recorded In the past 12 months has [employer] electric, gas, oil, or water company threatened [...] place to sleep or slept in a correction (including now)? No 10/28/2023 Sex and Gender Information Value Date Recorded Sex Assigned at Not on file Gender Identity Not on file Sexual Orientation Not on file documented as of this encounter Last Filed Vital Signs Vital Sign Reading Time Taken Comments Blood Pressure 152/59 07/16/2024 9:24 AM EDT Pulse 60 07/16/2024 9:24 AM EDT Temperature 36.8 ??C (98.2 ??F) 07/16/2024 9:24 AM ED T Respiratory Rate 14 07/16/2024 9:24 AM EDT Oxygen Saturation 98% 07/16/2024 9:24 AM EDT Inhaled Oxygen Concentration - - Weight 89.2 kg (196 lb 9.6 oz) 07/16/2024 9:24 A M EDT Height - - Body Mass Index 35.27 06/30/2024 1:47 PM EDT documented in this encounter Progress Notes * Tory Salazar PA - 07/16/2024 9:30 AM EDT Images from the original note were not included. [facility] [place] [address] FOLLOW-UP: Patient: Josselyn Garduno : 1945 PCP: Kay Caldwell MD Medical Oncologist: Nichole Fowler MD Breast Surgeon: Dmitri Schultz MD (sees PRN) Radiation Oncologist: Monique Grijalva MD (Consult Date: 10/07/23) Chief Complaint: Follow-up for right breast cancer (IDC, grade 2, ER/PA+, Her2-, s/p lumpectomy & SNB followed by reexcision, pT1c pN0) HPI: Initial Abnormal Mammogram: 08/01/23 Date of Diagnosis (Biopsy): 08/09/23 Surgery: right breast lumpectomy and SLNB (09/18/23), re-excision (10/09/23) Treatment Intent: Definitive (Curative/Adjuvant) Radiation Therapy: Completion Date Treatment Site Modality Dose per Fraction (Gy) # Fractions Total Dose (Gy) 12/03/23 Right breast lumpectomy bed (accelerated partial breast irradiation) VMAT 6 5 30 Current treatment: Anastrozole Interval Symptoms Since Last Visit on 12/31/23: General: Doing well. Pain: 0/10 Fatigue/Activity Level: Good energy level. Weight/Appetite/Diet: Denies recent appetite changes. No unintentional weight loss/gain. Breast: Denies skin changes at radiation/surgery site, lymphedema of breast/arm, new lumps/bumps, nipple discharge/bleeding, or breast pain. Respiratory: Denies SOB or cough. Cardiovascular: Denies chest pain, palpitations, calf pain/swelling, or other peripheral edema. Musculoskeletal: Takes Robaxin for back pain. Denies decreased strength, bone pain, or decreased ROM. Neurological: Denies headaches, seizures, dizziness, balance issues, memory/speech problems, numbness/tingling/weakness. Sexual Health: Denies alterations of sexual function or body image. Mood: Denies recent mood swings. Tobacco Use: Smoked 2 PPD x 15-20, quit > 30 years. Alcohol Use: H/o heavy use. None currently. Social Support: . Allergies: Allergies Allergen Reactions Opioids - Morphine Analogues Nausea And Vomiting Projectile vomiting Current Medications: Current Outpatient Medications on File Prior to Visit Medication Sig Dispense Refill methocarbamoL (Robaxin) 750 mg tablet Take 750 mg by mouth 4 times daily. estradioL (ESTRACE) 0.01 % (0.1 mg/gram) Cream Place 2 g vaginally daily. 42.5 g 3 Naltrexone, Bulk, 100 % Powder Take 6mgs by mouth daily 1 g 1 anastrozole (Arimidex) 1 mg tablet Take 1 tablet by mouth daily. Indications: hormone receptor positive breast cancer 90 tablet 3 diphenhydrAMINE-acetaminophen (TYLENOL PM) 25-500 mg Tablet Take by mouth. emollient combination no.111 (REMEDY PHYTOPLEX MOISTURIZER TOP) Apply topically. Phytoplex Remedy Moisturizer: Apply to area of radiation twice a day but no less than 2 hours before a treatment. UNABLE TO FIND Take by mouth daily. Nitric oxide supplements cholecalciferol, Vitamin D3, 50 mcg (2,000 unit) Capsule Take 2,000 Units by mouth daily. clobetasoL (Temovate) 0.05 % Ointment Apply topically 2 times daily. nystatin (MYCOSTATIN) 100,000 unit/gram Powder Prn venlafaxine (Effexor) 25 mg Tablet 37.5 mg daily. multivitamin (THERAGRAN) Tablet Take 1 tablet by mouth daily. HERBAL DRUGS ORAL Take by mouth. Upton Wort, lemon balm, passiflora, leonorus, hypericum ACETAMINOPHEN ORAL Take 2 tablets by mouth as needed. lisinopriL (Zestril) 10 mg Tablet omeprazole (PriLOSEC) 20 mg Capsule, Delayed Release(E.C.) simvastatin (Zocor) 20 mg Tablet nightly. theanine 100 mg Tablet, Chewable Take 200 mg by mouth. ketoconazole (NIZORAL) 2 % Shampoo daily as needed. No current facility-administered medications on file prior to visit. Performance Status: KPS Score ECOG Grade Definition X 90-100 0 Fully active, able to carry on all pre-disease performance without restriction 70-80 1 Restricted in physically strenuous activity but ambulatory and able to carry out work of a light or sedentary nature, e.g., light house work, office work 50-60 2 Ambulatory and capable of all selfcare but unable to carry out any work activities; up and about more than 50% of waking hours 30-40 3 Capable of only limited selfcare; confined to bed or chair more than 50% of waking hours 10-20 4 Completely disabled; cannot carry on any selfcare; totally confined to bed or chair Physical Examination: Patient Vitals for the past 24 hrs: Temp Pulse Resp BP SpO2 07/16/24 0924 36.8 ??C (98.2 ??F) 60 14 152/59 98 % Constitutional: well-groomed, conversant. NAD. HEENT: normocephalic. PERRL, EOMI, sclerae anicteric, conjunctivae non-injected. Moist mucous membranes, no thrush or oral lesion. Neck: supple, trachea midline. No adenopathy. Respiratory: non-labored respirations with symmetrical expansion. Lungs CTA bilaterally. Cardiovascular: RRR without murmurs or gallops. No peripheral edema. Breast: examined both breasts and chest tissue. No dominant masses or lumps of concern. Surgical incisions are well-healed. Stable surgical defect of right breast with some dimpling at 3:00. No nipple discharge. No telangiectasias. There is no appreciable axillary or clavicular adenopathy. No appreciable edema. No limitation to BUE ROM. Mild hyperpigmentation to right breast in RT field. Musculoskeletal: moving all extremities ad liudmila. BHARATH. No lymphedema or deformity. Neurologic: A&O x 3. Cranial nerves II-XII grossly intact. No focal deficits. Normal gait. Skin: warm, dry, pink, intact. Psychiatric: mood is euthymic, affect is congruent. Insight and judgement are good. Imaging Reviewed This Visit: Right Diagnostic Mammogram (04/10/24): Assessment & Plan: #Breast Cancer: - No concerning reported symptoms or physical exam findings. - Last mammogram from 04/10/24 was previously reviewed with the patient, which showed benign post-lumpectomy change in the right breast and an oval mass in the right axilla with associated architectural distortion, possibly post-operative changes, but further evaluation with ultrasound was recommended. Patient reports having right breast ultrasound in 03/2024 at [facility], right axillary mass found to be a hematoma, which was not palpated on today's exam. Our office to obtain 03/2024 right breast ultrasound report from [facility] so it can be added to patient's eDH chart. Repeat mammogram and f/u ultrasound scheduled for 08/03/24 by Medical Oncology. - Per NCCN guidelines: history and physical examination every 6-12 months X 5 years, annual mammogram. Since she is seeing Medical Oncology for systemic therapy and annual mammogram, and no longer sees Breast Surgery, we will continue to see her in Radiation Oncology. - Next breast exam and visit due in 6 months. #Effects of Radiation: - Completed RT to right breast lumpectomy bed (see HPI) on 12/03/23. - Late effects of radiation were reviewed with the patient, who currently denies issues with the following: - Skin changes (thickening, pigmentation changes, retraction, fibrosis, telangiectasias); - New breast lumps or nipple discharge; - Edema of breast/arm; - Persistent pain or headaches; - New/persistent cough, SOB, or chest pain; - New vaginal bleeding/spotting if taking Tamoxifen. - Reviewed concerning symptoms that should be brought to the attention of a medical provider: - Brand new or worsening breast symptoms; - Symptoms that persist for more than 2 weeks; - Anything you are worried about that may be related to your cancer coming back. #Survivorship: - Stress: manage and accept practical/emotional support. - Body weight/nutrition: recommend a well-balanced diet with adequate hydration. - Exercise: recommend at least 150 minutes of cardiovascular exercise per week, stretching twice per week, and 2 days of resistance/strength training per week. Continue daily bilateral upper extremity stretches to reduce risk of radiation- induced muscle stiffness/fibrosis, handouts given. - Skin Changes 2/2 RT: mild hyperpigmentation in RT field. Can use Aquaphor as needed. - Sleep: recommend 7-8 hours per night. - Sunscreen: encourage SPF 30 or higher, and wearing protective clothing/hats while outside. - Follow with PCP on regular basis for: annual exam/health maintenance (including gynecological care), immunizations, and cancer screenings (colonoscopy, lung cancer screening if appliable, etc). #Resources provided: none #Referrals placed: none Follow-Up: Next visit (in-person): 6 months Imaging due ([facility]): mammogram and ultrasound scheduled 08/03/24 (ordered by Medical Oncology) Josselyn Garduno had the opportunity to ask questions, which were answered to the best of my knowledge. Josselyn Garduno agreed to contact Radiation Oncology in between visits if she has any questions/concerns or new symptoms in regards to her radiation therapy. Tory Salazar PA-C Radiation Oncology Time Attestation: I certify spending at least 20 minutes in providing care to this patient today as reflected by the following activities: - review of the medical record - discussion of medical decision making - documenting the outcome of today's visit as above documented in this encounter Plan of Treatment Upcoming Encounters Date Type Department Care Team (Late st Contact Info) Description 09/18/2024 10:30 AM EST Office Visit Hematology/Oncology at [address] [phone] [address] MEDICAL ONCOLOGY [place], [place] [id number] 09/18/2024 11:00 AM EST Infusion Hematology Oncology at [address] [phone] 10/01/2024 3:45 PM EST Office Visit Functional [facility] [place] [address] [place] [phone] Gene Julien Jr., PT 12/23/2024 8:00 AM EST Appointment XRay at [address] [place] [phone] River Ochoa MD [address] [place] [address] 01/21/2025 1:00 PM EDT Office Visit Radiation Oncology at [address] [phone] Tory Salazar PA [facility] [place] [address] documented as of this encounter Visit Diagnoses Diagnosis Malignant neoplasm of upper-inner quadrant of right breast in female, estrogen receptor positive- Primary S/P radiotherapy Convalescence following radiotherapy documented in this encounter Care Teams Floorhand Relationship Specialty Start Date End Date Kay Caldwell MD [address] [place] [address] [place] [address] PCP - General Family Medicine 08/15/22 documented as of this encounter
--- OUTSIDE RECORDS SUMMARY | 2024-09-18 01:16 | XMS_ITS | Clinical Summary ---
Author Organization [facility] Address [facility] [place] [address] Care Team Providers Care Rn Team Leader Name Role Phone Kay Caldwell MD Primary Care Provider [phone] Allergies Active Allergy Reactions Criticality Noted Date Comments Doxycycline 07/17/2024 Duloxetine Itching 07/17/2024 Opioids - Morphine Analogues Nausea And Vomiting 10/09/2022 Projectile vomiting Medications Medication Sig Dispensed Refills Start Date End Date Status lisinopriL (Zestril) 10 mg Tablet 06/27/2022 Active omeprazole (PriLOSEC) 20 mg Capsule, Delayed Release(E.C.) 06/27/2022 Active simvastatin (Zocor) 20 mg Tablet nightly. 07/02/2022 Active multivitamin (THERAGRAN) Tablet Take 1 tablet by mouth daily. Active HERBAL DRUGS ORAL Take by mouth. Renfrow Wort, lemon balm, passiflora, leonorus, hypericum Active ACETAMINOPHEN ORAL Take 2 tablets by mouth as needed. Active venlafaxine (Effexor) 25 mg Tablet 37.5 mg daily. 12/13/2022 Active nystatin (MYCOSTATIN) 100,000 unit/gram Powder Prn 06/27/2022 Active cholecalciferol, Vitamin D3, 50 mcg (2,000 unit) Capsule Take 2,000 Units by mouth daily. Active theanine 100 mg Tablet, Chewable Take 200 mg by mouth. Active clobetasoL (Temovate) 0.05 % Ointment Apply topically 2 times daily. Active UNABLE TO FIND Take by mouth daily. Nitric oxide supplements Active emollient combination no.111 (REMEDY PHYTOPLEX MOISTURIZER TOP) Apply topically. Phytoplex Remedy Moisturizer: Apply to area of radiation twice a day but no less than 2 hours before a treatment. Active diphenhydrAMINE-isatu taminophen (TYLENOL PM) 25-500 mg Tablet Take by mouth. Active anastrozole (Arimidex) 1 mg tabletIndications:h ormone receptor positive breast cancer Take 1 tablet by mouth daily. Indications: hormone receptor positive breast cancer 90 tablet 3 04/20/2024 Active estradioL (ESTRACE) 0.01 % (0.1 mg/gram) Cream Place 2 g vaginally daily. 42.5 g 3 06/30/2024 Active methocarbamoL (Robaxin) 750 mg tablet Take 750 mg by mouth 4 times daily. Active methocarbamoL (Robaxin) 750 mg tablet Take 1 tablet by mouth 4 times daily. 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 Radiculopathy of lumbar region 10/08/2022 Encounters Date Type Department Care Team Description 09/02/2024 11:00 AM EDT Office Visit [facility] [place] [address] Gene Julien Jr., PT Left shoulder pain, unspecified chronicity; Radiculopathy of cervical region 09/02/2024 Travel 08/31/2024 Travel 08/26/2024 [place] [address] Margarita Morales PA 08/24/2024 7:29 AM EDT - 08/24/2024 11:59 PM EDT Hospital Encounter XRay at [address] [place] [address] River Ochoa MD Arthritis of left shoulder region Discharge Disposition: Home 08/24/2024 Travel 08/19/2024 Orders Only Hematology/Oncology at [address] [phone] Erica Yi, BRUNO [facility] current use of aromatase inhibitor; Stage I breast cancer, right; Aromatase inhibitor-associated arthralgia 07/24/2024 Orders Only [facility] [place] [address] Jazmín Santiago, TRAFFIC II MANAGER Left shoulder pain, unspecified chronicity (Primary Dx) 07/22/2024 2:00 PM EDT Office Visit Functional [facility] at [address] [phone] Ariana Brock OT Lumbar spondylosis 07/22/2024 Travel 07/17/2024 1:00 PM EDT Office Visit [facility] [place] [address] Jazmín Santiago, TRAFFIC II MANAGER Lumbar spondylosis (Primary Dx) 07/17/2024 Travel 07/16/2024 9:30 AM EDT Office Visit Radiation Oncology at [address] [phone] Tory Salazar PA Malignant neoplasm of upper-inner quadrant of right breast in female, estrogen receptor positive (Primary Dx); S/P radiotherapy 07/16/2024 Travel 06/30/2024 2:00 PM EDT Office Visit Hematology/Oncology at [address] [phone] Nichole Fowler MD [place]reault, Alexandra H, 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 current use of aromatase inhibitor; Stage I breast cancer, right; Aromatase inhibitor-associated arthralgia 06/30/2024 Travel 06/24/2024 Travel from Last 3 Months Social History Tobacco Use Types Packs/Day Years Used Date Smoking Tobacco: Former Cigarettes 2 15 0 11/11/1973 - 11/11/1988 Smokeless Tobacco: Never Tobacco Cessation:Counseling Given: Not Answered Comments:10-15 years quit 35 years ago Alcohol Use Standard Drinks/Week Comments Not Currently 0 (1 standard drink = 0.6 oz pur e alcohol) Recovering 41 years [facility] Utilities Answer Date Recorded In the [...] place to sleep or slept in a fpc (including now)? No 10/28/2023 Sex and Gender Information Value Date Recorded Sex Assigned at Not on file Gender Identity Not on file Sexual Orientation Not on file Last Filed Vital Signs Vital Sign Reading Time Taken Comments Blood Pressure 142/76 07/17/2024 12:53 PM EDT Pulse 80 07/17/2024 12:53 PM EDT Temperature 36.8 ??C (98.2 ??F) 07/16/2024 9:24 AM ED T Respiratory Rate 14 07/16/2024 9:24 AM EDT Oxygen Saturation 98% 07/17/2024 12:53 PM EDT Inhaled Oxygen Concentration - - Weight 86.6 kg (191 lb) 08/27/2024 9:44 AM EDT Height 157.5 cm (5' 2) 08/27/2024 9:44 AM EDT Body Mass Index 34.93 08/27/2024 9:44 AM EDT Plan of Treatment Upcoming Encounters Date Type Department Care Team (Late st Contact Info) Description 09/18/2024 10:30 AM EST Office Visit Hematology/Oncology at [address] [phone] Erica Yi APRN [address] [place] [address] DR [facility] ON[facility]Y [place], [place] [phone] 09/18/2024 11:00 AM EST Infusion Hematology Oncology at [address] [phone] 10/01/2024 3:45 PM EST Office Visit Functional [facility] at [address] [place] [address] Gene Julien Jr., PT 12/23/2024 8:00 AM EST Appointment XRay at [address] [place] [address] River Ochoa MD [address] [place], [place] [address] 01/21/2025 1:00 PM EDT Office Visit Radiation Oncology at [address] [phone] Tory Salazar PA [facility] [place] [address] Health Maintenance Due Date Last Done Comments Hepatitis C Screening 1963 Tetanus/Diphtheria/Pertussis Vaccines (1 - Tdap) 1964 Zoster vaccine (1 of 2) 1995 Advance Directive 2000 Bone Density Scan 2010 Pneumoccocal Vaccine: 65+ (1 of 1 - PCV) 2010 Covid-19 Vaccine (9 - 2024-2 5 season) 2024 01/20/2024, 08/05/2023, 04/01/2023, Additional history exists Influenza (Flu) vaccine (1 o f 1 - Influenza standard series) 07/12/2024 Procedures Procedure Name Priority Date/Time Associated Diagnosis Comments ORDS - PROVIDER CARE SCAN 08/26/2024 12:00 AM EDT XR FLUORO INJECTION DRAINAGE JOINT LG LEFT Routine 08/24/2024 8:16 AM EDT Arthritis of left shoulder region ULTRASOUND SCAN (SCAN) 08/03/2024 12:00 AM EDT MAMMOGRAM SCAN 08/03/2024 12:00 AM EDT OT PLAN OF CARE CERT/RE-CERT Routine 07/22/2024 3:35 PM EDT Lumbar spondylosis LAB SCAN 07/17/2024 12:00 AM EDT MAMMOGRAM SCAN 07/01/2024 12:00 AM EDT MAMMOGRAM SCAN 07/01/2024 12:00 AM EDT MAMMOGRAM SCAN 07/01/2024 12:00 AM EDT MAMMOGRAM SCAN 07/01/2024 12:00 AM EDT from Last 3 Months Results * Scan Doc: [facility] - Provider Care (08/26/2024 12:00 AM EDT) Narrative 08/26/2024 12:00 AM EDT Ordered by an unspecified provider. Scanning Provider MEDIA MGR SCAN EXT O RDR/RSLT * XR Fluoro Guided Joint Injection Large Left (08/24/2024 8:16 AM EDT) WORKSTATION ID [id number] RAD Anatomical Region Laterality Modality Left Radio Fluoroscop y Impressions 08/24/2024 10:11 AM EDT Technically successful left glenohumeral joint injection under fluoroscopy. Service Provider: ??Margarita Morales PA-C Attending of Record: Dr. Parag Miles MD Preliminary report signed by: KIM Thompson at 08/24/2024 8:22 AM I have personally reviewed the image(s) and the provider's interpretation and agree with the findings, Parag Miles MD at 08/24/2024 10:11 AM Thank you for letting us participate in the care of this patient. ??If you are a health care provider and have any questions regarding this report, please contact the number below. ??For patients who have questions please contact the health insurance healthcare representative that requested your imaging first. ? Narrative 08/24/2024 10:11 AM EDT LEFT GLENOHUMERAL JOINT INJECTION UNDER FLUOROSCOPY CLINICAL HISTORY: pain of left shoudler TECHNIQUE: After an extensive conversation with the patient regarding risks and benefits, including but not limited to: infection, bleeding, an allergic reaction to injected medications, steroid flare, and pain/discomfort due to the procedure, oral and written consent were obtained.?A pre- procedural time-out was performed, including review of the patient's relevant electronic medical record and allergies, as per [facility] protocol. The patient was placed supine with the left arm in external rotation on the fluoroscopic table. ??The skin over the anterior left glenohumeral joint was prepped and draped in the usual sterile manner. 1% Lidocaine was used to achieve local anesthesia. Under fluoroscopic guidance, 23-gauge 1.5 inch needle was advanced into the joint space. ??A small amount of Omnipaque 300 was injected to document needle placement. ??A mixture of lidocaine, ropivacaine, and methyprednisolone was then injected. All needles were removed at the end of the procedure. A dry sterile dressing was placed over the injection site. The patient was able to ambulate from the injection suite without assistance. FINDINGS: 1. ??Small amount of injected Omnipaque 300 in the left glenohumeral joint space. 2. ??PAIN SCORE: ??Before: 5/10. ??After: 0/10. 3. Fluoroscopy time: 0.11 minutes. 4. Medications: ?Subcutaneous: ??Lidocaine 1% - <5 ml. ?Intra-articular: ?Lidocaine 1% - 1 mL. ??Ropivacaine HCL ??0.5% - 4 mL. ??Methylprednisolone - 40 mg. 5. Images: Intra-articular contrast is seen. ??Calcific tendinitis of the rotator cuff. COMPLICATIONS: ??None immediate. POST-PROCEDURE CARE: Information regarding monitor of infection, post- procedural pain and management of steroid flare were reviewed with and provided to the patient. Procedure Note Parag Miles MD - 08/24/2024 LEFT GLENOHUMERAL JOINT INJECTION UNDER FLUOROSCOPY CLINICAL HISTORY: pain of left shoudler TECHNIQUE: After an extensive conversation with the patient regardingrisks and benefits, including but not limited to: infection, bleeding, an allergic reaction to injected medications, steroid flare, and pain/discomfort dueto the procedure, oral and written consent were obtained.?A pre- proceduraltime-out was performed, including review of the patient's relevant electronicmedical record and allergies, as per [facility] protocol. The patient was placed supine with the left arm in external rotation onthe fluoroscopic table. The skin over the anterior left glenohumeral jointwas prepped and draped in the usual sterile manner. 1% Lidocaine was used toachieve local anesthesia. Under fluoroscopic guidance, 23-gauge 1.5 inch needlewas advanced into the joint space. A small amount of Omnipaque 300 wasinjected to document needle placement. A mixture of lidocaine, ropivacaine, and methyprednisolone was then injected. All needles were removed at the endof the procedure. A dry sterile dressing was placed over the injection site.The patient was able to ambulate from the injection suite withoutassistance. FINDINGS: 1. Small amount of injected Omnipaque 300 in the left glenohumeral jointspace. 2. PAIN SCORE: Before: 5/10. After: 0/10. 3. Fluoroscopy time: 0.11 minutes. 4. Medications: Subcutaneous: Lidocaine 1% - <5 ml. Intra-articular: Lidocaine 1% - 1 mL. Ropivacaine HCL 0.5% - 4 mL. Methylprednisolone - 40 mg. 5. Images: Intra-articular contrast is seen. Calcific tendinitis of therotator cuff. COMPLICATIONS: None immediate. POST-PROCEDURE CARE: Information regarding monitor of infection, post- procedural pain and management of steroid flare were reviewed with andprovided to the patient. IMPRESSION Technically successful left glenohumeral joint injection under fluoroscopy. Service Provider: Margarita Morales PA-C Attending of Record: Dr. Parag Miles MD Preliminary report signed by: KIM Thompson at 08/24/2024 8:22 AM I have personally reviewed the image(s) and the provider's interpretationand agree with the findings, Parag Miles MD at 08/24/2024 10:11 AM Thank you for letting us participate in the care of this patient. If youare a health care provider and have any questions regarding this report,please contact the number below. For patients who have questions please contactthe health insurance healthcare representative that requested your imaging first. River Ochoa MD IMG FLUORO ORDERABLE S * Scan Doc: Ultrasound (08/03/2024 12:00 AM EDT) Anatomical Region Laterality Modality Other Narrative 08/03/2024 12:00 AM EDT Ordered by an unspecified provider. Scanning Provider MEDIA MGR SCAN EXT O RDR/RSLT * Scan Doc: Mammogram (08/03/2024 12:00 AM EDT) Only the most recent of5 resultswithin the time period is included. Anatomical Region Laterality Modality Other Narrative 08/03/2024 12:00 AM EDT Ordered by an unspecified provider. Scanning Provider MEDIA MGR SCAN EXT O RDR/RSLT * Scan Doc: Lab (07/17/2024 12:00 AM EDT) Narrative 07/17/2024 12:00 AM EDT Ordered by an unspecified provider. Scanning Provider MEDIA MGR SCAN EXT O RDR/RSLT from Last 3 Months Advance Directives Documents on File Type Date Recorded Patient Internet Webmaster Expl anation Personal Internet Webmaster 09/04/2024 12:59 PM clari rogers Care Teams Rn Team Leader Relationship Specialty Start Date End Date Kay Caldwell MD [address] [place] [address] [address] [place] [address] PCP - General Family Medicine 08/15/22
--- OUTSIDE RECORDS SUMMARY | 2024-09-18 01:16 | XMS_ITS | Encounter Summary ---
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 Social History Tobacco Use Types Packs/Day Years Used Date Smoking Tobacco: Former Cigarettes 2 15 0 11/11/1973 - 11/11/1988 Smokeless Tobacco: Never Comments:10-15 years quit 35 years ago Alcohol Use Standard Drinks/Week Comments Not Currently 0 (1 standard drink = 0.6 oz pur e alcohol) Recovering 41 years [facility] Utilities Answer Date Recorded In the past 12 months has [employer], gas, oil, or water [email or web address] threatened to shut off services in your [...] as of this encounter Miscellaneous Notes * Telephone Encounter - Angeles Arteaga RN - 06/11/2024 2:59 PM EDT Out going return call to confirm the amount of Naltrexone pills to prescribe. I told [facility] to give her 30 with 1 refill do to she has to come in for a clinic apt. documented in this encounter Plan of Treatment Upcoming Encounters Date Type Department Care Team (Late st Contact Info) Description 09/18/2024 10:30 AM EST Office Visit Hematology/Oncology at [address] [phone] Erica Yi APRN [address] [place] [address] DR MEDICAL ONCOLOGY [place], [place] [phone] 09/18/2024 11:00 AM EST Infusion Hematology Oncology at [address] [phone] 10/01/2024 3:45 PM EST Office Visit Functional [facility] at [facility] [address] [place] [address] Gene Julien Jr., PT 12/23/2024 8:00 AM EST Appointment XRay at [address] [place] [address] River Ochoa MD [address] [place] [address] 01/21/2025 1:00 PM EDT Office Visit Radiation Oncology at [address] [phone] Tory Salazar PA [facility] DR HEMATOLOGY [place] [address] documented as of this encounter Visit Diagnoses Not on filedocumented in this encounter Care Teams Damascener Relationship Specialty Start Date End Date Kay Caldwell MD [address] [place] [address] [address] [place] [address] PCP - General Family Medicine 08/15/22 documented as of this encounter
--- OUTSIDE RECORDS SUMMARY | 2024-09-18 01:16 | XMS_ITS | Continuity of Care Document ---
Author Organization [facility] Address [address] [place] [address] Care Team Providers Care Setter Up Name Role Phone Kay Caldwell Primary Care Physician Encounter [facility] Date(s): 02/03/24 - 02/03/[address] [phone] Discharge Disposition: Home or Self Care Attending [...] g, 2 Refill(s), Pharmacy: [facility] ([facility] ) Start Date: 03/28/23 Status: Ordered ketoconazole 1% topical shampoo 1 vinnie, Topical, every 3 day, # 200 mL, 3 Refill(s), Pharmacy: [facility], 158, cm, 02/03/24 8:39:00 EDT, Height, 90.5, kg, 02/03/24 8:51:00 EDT, Weight Dosing Start Date: 02/03/24 Status: Ordered lisinopril 10 mg oral tablet [...] diverticulosis, grade 1 internal hemorrhoids 5Right, in [place] 6[facility]; [facility] Results Laboratory List Name Date Automated Diff 02/03/24 CBC w/ Diff 02/03/24 Comprehensive Metabolic Panel (CMP) 02/02 Hemoglobin A1c 02/03/24 Lipid Panel 02/03/24 Most recent to oldest [Reference Range]: 1 WBC [5.0-10.0 x10^3/mcL] 5.6 x10^3/mcL (02/03/24 9:43 AM) RBC [4.1-5.3 x10^6/mcL] 4.5 x10^6/mcL (02/03/24 9:43 AM) Neutro Auto [40.0-75.0 %] 65.6 % (02/03/24 9:43 AM) Lymph Auto [20.0-50.0 %] 20.0 % (02/03/24 9:43 AM) [place] Auto [2.0-15.0 %] 9.4 % (02/03/24 9:43 AM) Basophil Auto [0.0-1.0 %] 0.9 % (02/03/24 9:43 AM) BUN [7-18 mg/dL] 21 mg/dL *HI* (02/03/24 9:43 AM) Cholesterol Total [50-200 mg/dL] 223 mg/ dL *HI* (02/03/24 9:43 AM) LDL [0-130 mg/dL] 120 mg/dL (02/03/24 9:43 AM) Glucose Level [74-106 mg/dL] 97 mg/dL (02/03/24 9:43 AM) Potassium Level [3.5-5.1 mmol/L] 4.5 mmo l/L (02/03/24 9:43 AM) MCV [80.0-96.0 fL] 91.9 fL (02/03/24 9:43 AM) HDL [40-60 mg/dL] 94 mg/dL *HI* (02/03/24 9:43 AM) AST [15-37 unit/L] 15 unit/L (02/03/24 9:43 AM) ALT [14-59 unit/L] 19 unit/L (02/03/24 9:43 AM) MCHC [31.0-35.0 g/dL] 32.2 g/dL (02/03/24 9:43 AM) Sodium Level [136-145 mmol/L] 140 mmol/L (02/03/24 9:43 AM) Hct [37.0-47.0 %] 41.0 % (02/03/24 9:43 AM) Triglycerides [0-150 mg/dL] 44 mg/dL (02/03/24 9:43 AM) Calcium Level [8.5-10.1 mg/dL] 9.3 mg/dL (02/03/24 9:43 AM) Albumin Level [3.4-5.0 g/dL] 3.4 g/dL (02/03/24 9:43 AM) Protein Total [6.4-8.2 g/dL] 6.5 g/dL (02/03/24 9:43 AM) MCH [26.0-32.0 pg] 29.6 pg (02/03/24 9:43 AM) Neutro Absolute 3.7 x10^3/mcL *NA* (02/03/24 9:43 AM) Bilirubin Total [0.2-1.0 mg/dL] 0.6 mg/d L (02/03/24 9:43 AM) Hgb [12.0-16.0 g/dL] 13.2 g/dL (02/03/24 9:43 AM) Alk Phos [46-146 unit/L] 52 unit/L (02/03/24 9:43 AM) Platelets [130-450 x10^3/mcL] 197 x10^3/ mcL (02/03/24 9:43 AM) CO2 [21-32 mmol/L] 34 mmol/L *HI* (02/03/24 9:43 AM) eGFR Non-AA [>=60] 63 (02/03/24 9:43 AM) eGFR AA [>=60] 63 (02/03/24 9:43 AM) Hemoglobin A1c [4.0-5.6 %] 5.7 % 1 *HI* (02/03/24 9:43 AM) Chloride Level [98-107 mmol/L] 103 mmol/ L (02/03/24 9:43 AM) RDW-CV [11.5-14.5 %] 14.1 % (02/03/24 9:43 AM) Imm Gran Auto [0.0-0.9 %] 0.2 % (02/03/24 9:43 AM) Creatinine Level [0.55-1.02 mg/dL] 0.93 mg/dL (02/03/24 9:43 AM) Eos, Auto [1.0-6.0 %] 3.9 % (02/03/24 9:43 AM) 1Interpretive Data: New test method effective 12-10-23. Establishment of new HA1c baseline is recommended. The following A1c interpretive data reflect the 2017 [place] Diabetes Association (ADA) guidelinesand will be reported with each A1c result: Normal: <5.7% Prediabetes: 5.7 - 6.4% Diagnostic for diabetes (if confirmed): ???6.5% Social History Social History Type Response Tobacco Former tobacco user Tobacco Use:. 1 Sex Female 1Quit 1987 Patient Care team information Care Team Personnel Name: Kay Caldwell MD Position: Physician Member Role: Informed Provider Address: Address: [address] [place] [address] [place] [address]- Care Team Related Persons Name: ANNIE PARISH Address: Home [address] [place] [address], [phone]
--- OUTSIDE RECORDS SUMMARY | 2024-09-18 01:16 | XMS_ITS ---
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 Thank you for letting us participate in the care of this patient. If you are a health care provider and have any questions regarding this report, please contact the number below. For patients who have questions please contact the health health care administrator that requested your imaging first. Electronically signed by: Faustino Burnett MD [facility] ([phone]), at 07/02/2024 11:43 AM EXAMINATION: MR UPPER EXT ANY JOINT LT WO CONTRAST CLINICAL HISTORY: REASON: PAIN, JOINT, SHOULDER, LEFT ADD'L INFO: PATIENT HAS MEDICARE AND Sidecar[employer]me [facility] NO PRIOR AUTH TECHNIQUE: COMPARISON: X-ray 05/21/2024 FINDINGS: There is moderate hypertrophic osteoarthritis at the AC joint with an effusion within the joint as well as a small erosive changes on both sides of the joint with associated low-grade bone marrow edema, overall suggesting an active arthritic process. There is mild lateral downsloping of the acromion relative to the ECG joint. Lateral acromion is of type I morphology. There is ill-definition and elevation of signal seen at both the bursal and articular surfaces of the supraspinatus tendon. Partial-thickness articular surface at tearing is suspected there. At the junction between the supraspinatus and infraspinatus tendons, there is a focus of maceration of the rotator cuff, with a few fibrils remaining intact, but to a good possibility of affectively a full-thickness tear with percolation of the's of intrasynovial fluid at the glenohumeral joint into the subacromial/subdeltoid bursa, the latter markedly distended. There is a ill-definition of the bursal surface of the infraspinatus tendon, and a partial-thickness articular surface tear extending about 50% of the way through the tendon at the infraspinatus. There is a focus of soft tissue calcification measuring about the 7/2 mm in diameter occurring within the more inferior distal infraspinatus tendon. Another focus of soft tissue mineralization occurs at the supra distal infraspinatus tendon, of similar size. These were present at the knee x-ray evaluation of 05/21/2024. Subscapularis muscle belly and tendon unremarkable. The tendon of long head of the biceps appears intact, but a longitudinal split or longitudinal intrasubstance degeneration is seen within this tendon beginning at the superior aspect of the intertubercular groove and extending to the bicipital labral junction. Small subcortical cysts and sclerotically marginated erosions occur at the superior aspect of the lesser tuberosity, as well as at the posterior superior aspect of the greater tuberosity underlying the rotator cuff insertions. Sizable effusion at the glenohumeral joint and the subacromial/subdeltoid bursa, likely with communication between these 2 compartments through an area of maceration, occurring at the junction of the supraspinatus and infraspinatus tendons. Significant osteoarthritis at the glenohumeral joint, with loss of articular cartilage thickness and osteophyte formations at the inferior margin of the joint. Low-grade bone marrow edema/hypervascularity also parallels the inferior articular subchondral bone at the humeral head. Low-grade reactive marrow changes also occur underlying subchondral bone at the glenoid. IMPRESSION: AC joint osteoarthritic change. Some imaging features suggest an ongoing inflammatory/active process there. Advanced osteoarthritis at the glenohumeral joint, as manifest by varying degrees of loss of articular cartilage, ossified formations and reactive marrow changes. Zones of partial-thickness articular and bursal surface tearing at the rotator cuff involving the supraspinatus and infraspinatus. There is additionally a zone of maceration of the rotator cuff at the junction of the supraspinatus infraspinatus, l -- ikely reflecting a focus of full-thickness tearing with fluid percolating between the glenohumeral joint and subacromial/subdeltoid bursa. Sizable effusion at the subacromial/subdeltoid bursa/glenohumeral joint. Calcific deposits in 2 foci at the infraspinatus tendon, details as above. Thank you for letting us participate in the care of this patient. If you are a health care provider and have any questions regarding this report, please contact the number below. For patients who have questions please contact the health health care administrator that requested your imaging first. Electronically signed by: Faustino Burnett MD [facility] ([phone]), at 06/08/2024 3:44 PM Social History Type Status Start Date End Date Code Code Syst em Smoking History Former smoker 1965 04/23/19959709 6422210 SNOMED CT Sex Female Hospital Discharge Instructions Should you have any questions prior to discharge, please contact a member of your healthcare team. If you have left the hospital and have any questions, please contact your primary care physician. Reason For Referral No Data Found Allergies and Adverse Reactions Allergy Substance Reaction Severity Start Date Concern Status Co de Code System No Known Allergies Moderate Active Plan of Treatment MRI UPPER EXT JOINT W/O CONTRAST 2023 CT ABDOMEN/PELVIS W/ CONTRAST 2 MRI L SPINE W/O CONTRAST 03/13/2022 NM HEPATOBILIARY CCK 02/07/2022 US RENAL 01/24/2022 Encounters Encounter Diagnosis Start Date Code Code Sys tem 06/08/2024 [id number] SNOMED-CT Personal Care Team Section Performer Name Performer Role Active Date Inactive Da te
--- OUTSIDE RECORDS SUMMARY | 2024-09-18 01:16 | XMS_ITS ---
Author Organization Unknown Address [address] [place] [phone] Phone Care Team Providers Care Biochemistry Technologist Name Role Phone JEREMIAS SARAVIA Attending Unavailab Yarbrough Primary Unavailable Results [place] [id number]* - Completed: 02/07/2022 15:04 LOINC: CCK HIDA SCAN: Comparison ultrasound is 01/24/2022 and 04/13/2021. The patient received 5 mCi technetium-99m Mebrofenin. The patient then received 2.3 mcg of CCK according to protocol. The liver, bile ducts, gallbladder, and small bowel were visualized at appropriate time intervals. The gallbladder ejection fraction was 93%. The patient experienced minor cramping during the infusion of the CCK. IMPRESSION: Unremarkable examination, except for mild cramping during the infusion of CCK. Dictated by: LANA MCCRAY MD Transcribed by: SHONA 02/07/22/15:45 [id number] Electronically Reviewed and Signed By: SRINIVAS MCCRAY MD 02/08/22 07:47 Copy for: JEREMIAS SARAVIA via fax Copy for: [facility] [employer] Social History Type Status Start Date End Date Code Code Syst em Smoking History Former smoker 1965 04/23/19956634 [id number] SNOMED CT Sex Female Hospital Discharge Instructions [...] Diagnosis Start Date Code Code Sys tem Abdominal pain 02/07/2022 [id number] SNOMED-CT Personal Care Team Section Performer Name Performer Role Active Date Inactive Da te
--- OUTSIDE RECORDS SUMMARY | 2024-09-18 01:16 | XMS_ITS | Encounter Summary ---
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 No 10/28/2023 Sex and Gender Information Value Date Recorded Sex Assigned at Not on file Gender Identity Not on file Sexual Orientation Not on file documented as of this encounter Plan of Treatment Upcoming Encounters Date Type Department Care Team (Late st Contact Info) Description 09/18/2024 10:30 AM EST Office Visit Hematology/Oncology at [address] [phone] Erica Yi APRN [address] [place] [address] MEDICAL ONCOLOGY [place], [place] [phone] 09/18/2024 11:00 AM EST Infusion Hematology Oncology at [address] [phone] 10/01/2024 3:45 PM EST Office Visit Functional Gnosticist Program at [facility] [address] [place] [address] Gene Julien Jr., PT 12/23/2024 8:00 AM EST Appointment XRay at [address] [place] [phone] River Ochoa MD [address] [place] [address] 01/21/2025 1:00 PM EDT Office Visit Radiation Oncology at [address] [phone] Tory Salazar PA [facility] [place] [address] Scheduled Orders Name Type Priority Associated Diagnoses Orde r Schedule Comprehensive metabolic panel Non-fasting Lab 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 Stage I breast cancer, right Aromatase inhibitor-associated arthralgia Expected: 09/19/2024, Expires: 08/19/2025 documented as of this encounter Visit Diagnoses Diagnosis 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
--- OUTSIDE RECORDS SUMMARY | 2024-09-18 01:16 | XMS_ITS | Encounter Summary ---
Author Organization [facility] [place] [address] Care Team Providers Care Supply Officer Name Role Phone Kay Caldwell MD Primary Care Provider [phone] Encounter Details Date Type Department Care Team (Latest Contact Info) Description 07/22/2024 Travel Social History Tobacco Use Types Packs/Day Years Used Date Smoking Tobacco: Former Cigarettes 2 15 0 11/11/1973 - 11/11/1988 Smokeless Tobacco: Never Comments:10-15 years quit 35 years ago Alcohol Use Standard Drinks/Week Comments Not Currently 0 (1 standard drink = 0.6 oz pur e alcohol) Recovering 41 years [facility] Utilities Answer Date Recorded In the [...] place to sleep or slept in a fci (including now)? No 10/28/2023 Sex and Gender Information Value Date Recorded Sex Assigned at Not on file Gender Identity Not on file Sexual Orientation Not on file documented as of this encounter Plan of Treatment Upcoming Encounters Date Type Department Care Team (Late st Contact Info) Description 09/18/2024 10:30 AM EST Office Visit Hematology/Oncology at [address] [phone] Erica Yi APRN [address] [place] [address] DR MEDICAL ONCOLOGY [place], [place] [phone] 09/18/2024 11:00 AM EST Infusion Hematology Oncology at [address] [phone] 10/01/2024 3:45 PM EST Office Visit Functional Congregational Program at [facility] [address] [place] [address] Gene Julien Jr., PT 12/23/2024 8:00 AM EST Appointment XRay at [address] [place] [phone] River Ochoa MD [address] [place], [place] [address] 01/21/2025 1:00 PM EDT Office Visit Radiation Oncology at [address] [phone] Tory Salazar PA [facility] DR HEMATOLOGY [place] [address] documented as of this encounter Visit Diagnoses Not on filedocumented in this encounter Care Teams Supply Officer Relationship Specialty Start Date End Date Kay Caldwell MD [address] [place] [phone] PCP - General Family Medicine 08/15/22 documented as of this encounter
--- OUTSIDE RECORDS SUMMARY | 2024-09-18 01:16 | XMS_ITS | Continuity of Care Document ---
Author Organization [facility] Address [address] [place] [address] Care Team Providers Care Milk Deliverer Name Role Phone Kay Caldwell Primary Care Physician [facility] Date(s): 08/02/23 - 08/02/23 [facility] [address] [place] [address] Discharge Disposition: Home or Self Care Attending [...] day, # 200 mL, 0 Refill(s), Pharmacy: [id number] Start Date: 01/29/23 Status: Ordered lisinopril [...] tab, 3 Refill(s), Pharmacy: [facility] Start Date: 02/19/23 Status: [...] diverticulosis, grade 1 internal hemorrhoids 5Right, in [place] 6left 7[place]; [facility] Results Laboratory List Name Date PT/ INR 08/02/23 Platelet Count 08/02/23 Most recent to oldest [Reference Range]: 1 Prothrombin Time [9.0-11.0 seconds] 9.8 seconds (08/02/23 1:32 PM) INR 1.0 1 *NA* (08/02/23 1:32 PM) Platelets [130-450 x10^3/mcL] 238 x10^3/ mcL (08/02/23 1:32 PM) 1Interpretive Data: INR 2-2.5 Prophylaxis: Short term DVT INR 2-3 Prophylaxis: hip and femur surgery Therapy: DVT (3 mos) PE (3-6 mos) TIA (senior care) Atr Fib (senior care) 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 1 Sex Female 1Quit 1987 Patient Care team information Care Team Personnel Name: Kay Caldwell MD Position: Physician Member Role: Primary Care Physician Address: Address: [place] [address]- Care Team Related Persons Name: ANNIE PARISH
--- OUTSIDE RECORDS SUMMARY | 2024-09-18 01:16 | XMS_ITS | Encounter Summary ---
Author Organization [facility] [place] [address] Care Team Providers Care Manager Dental Name Role Phone Kay Caldwell MD Primary Care Provider [phone] Encounter Details Date Type Department Care Team (Latest Contact Info) Description 09/02/2024 Travel Social History Tobacco Use Types Packs/Day Years Used Date Smoking Tobacco: Former Cigarettes 2 15 0 11/11/1973 - 11/11/1988 Smokeless Tobacco: Never Comments:10-15 years quit 35 years ago Alcohol Use Standard Drinks/Week Comments Not Currently 0 (1 standard drink = 0.6 oz pur e alcohol) Recovering 41 years [facility] Utilities Answer Date Recorded In [...] place to sleep or slept in a fdc (including now)? No 10/28/2023 Sex and Gender Information Value Date Recorded Sex Assigned at Not on file Gender Identity Not on file Sexual Orientation Not on file documented as of this encounter Plan of Treatment Upcoming Encounters Date Type Department Care Team (Late st Contact Info) Description 09/18/2024 10:30 AM EST Office Visit Hematology/Oncology at [address] [phone] Erica Yi APRN [address] [place] [address] DR MEDICAL ONCOLOGY [place], [place] [phone] 09/18/2024 11:00 AM EST Infusion Hematology Oncology at [address] [phone] 10/01/2024 3:45 PM EST Office Visit Functional Church Program at [facility] [address] [place] [address] Gene Julien Jr., PT 12/23/2024 8:00 AM EST Appointment XRay at [address] [place] [phone] River Ochoa MD [address] [place], [place] [address] 01/21/2025 1:00 PM EDT Office Visit Radiation Oncology at [address] [phone] Tory Salazar PA [facility] DR [place]AT[place] [address] documented as of this encounter Visit Diagnoses Not on filedocumented in this encounter Care Teams Manager Dental Relationship Specialty Start Date End Date Kay Caldwell MD [address] [place] [phone] PCP - General Family Medicine 08/15/22 documented as of this encounter
--- OUTSIDE RECORDS SUMMARY | 2024-09-18 01:16 | XMS_ITS | Encounter Summary ---
Author Organization [facility] [place] [address] Care Team Providers Care Cut File Clerk Name Role Phone Kay Caldwell MD Primary Care Provider [phone] Encounter Details Date Type Department Care Team (Latest Contact Info) Description 07/16/2024 Travel Social History Tobacco Use Types Packs/Day Years Used Date Smoking Tobacco: Former Cigarettes 2 15 0 11/11/1973 - 11/11/1988 Smokeless Tobacco: Never Comments:10-15 years quit 35 years ago Alcohol Use Standard Drinks/Week Comments Not Currently 0 (1 standard drink = 0.6 oz pur e alcohol) Recovering 41 years [facility] Utilities Answer Date Recorded In the past [...] place to sleep or slept in a skilled nursing (including now)? No 10/28/2023 Sex and Gender Information Value Date Recorded Sex Assigned at Not on file Gender Identity Not on file Sexual Orientation Not on file documented as of this encounter Plan of Treatment Upcoming Encounters Date Type Department Care Team (Late st Contact Info) Description 09/18/2024 10:30 AM EST Office Visit Hematology/Oncology at [address] [phone] Erica Yi APRN [address] [place] [address] DR MEDICAL ONCOLOGY [place], [place] [phone] 09/18/2024 11:00 AM EST Infusion Hematology Oncology at [address] [phone] 10/01/2024 3:45 PM EST Office Visit Functional Pentecostalism Program at [facility] [address] [place] [address] Gene Julien Jr., PT 12/23/2024 8:00 AM EST Appointment XRay at [address] [place] [phone] River Ochoa MD [address] [place], [place] [address] 01/21/2025 1:00 PM EDT Office Visit Radiation Oncology at [address] [phone] Tory Salazar PA [facility] DR [place] [address] documented as of this encounter Visit Diagnoses Not on filedocumented in this encounter Care Teams Cut File Clerk Relationship Specialty Start Date End Date Kay Caldwell MD [address] [place] [phone] PCP - General Family Medicine 08/15/22 documented as of this encounter
--- OUTSIDE RECORDS SUMMARY | 2024-09-18 01:16 | XMS_ITS | Encounter Summary ---
Author Organization [facility] [place] [address] Care Team Providers Care Coating Mixer Name Role Phone Kay Caldwell MD Primary Care Provider [phone] Reason for Referral * Physical Therapy (Routine) - Authorized Specialty Diagnoses / Procedures Referred By Charli hardy Referred To Contact Physical Therapy Diagnoses Stage I breast cancer, right Aromatase inhibitor-associated arthralgia Nichole Fowler MD [facility] DR MEDICAL ONCOLOGY [place], [place] [id number] [place] [phone] Referral ID Status Reason Start Date Expiration Date Visits Requested Visits Authorized [id number] Authorized Evaluate and Treat 06/30/2024 12/27/2024 12 12 Encounter Details Date Type Department Care Team (Late st Contact Info) Description 06/30/2024 2:00 PM EDT Office Visit Hematology/Oncology at [address] [phone] Nichole Fowler MD Perreault, Alexandra H, APRN [address] [place] [address] DR MEDICAL ONCOLOGY [place], [place] [phone] 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 No 10/28/2023 Sex and Gender Information Value Date Recorded Sex Assigned at Not on file Gender Identity Not on file Sexual Orientation Not on file documented as of this encounter Last Filed Vital Signs Vital Sign Reading Time Taken Comments Blood Pressure 150/60 06/30/2024 1:47 PM EDT Pulse 73 06/30/2024 1:47 PM EDT Temperature 36.1 ??C (96.9 ??F) 06/30/2024 1:47 PM ED T Respiratory Rate 20 06/30/2024 1:47 PM EDT Oxygen Saturation 100% 06/30/2024 1:47 PM EDT Inhaled Oxygen Concentration - - Weight 87.8 kg (193 lb 9.6 oz) 06/30/2024 1:47 P M EDT Height 159 cm (5' 2.6) 06/30/2024 1:47 PM EDT Body Mass Index 34.74 06/30/2024 1:47 PM EDT documented in this encounter Progress Notes * Nichole Fowler MD - 06/30/2024 2:00 PM EDT Images from the original note were not included. [facility] Patient Name: Josselyn Garduno : 1945 Visit Date: 06/30/2024 PCP: Kay Caldwell MD Breast surgical oncology: Dmitri Schultz MD ([facility]) Radiation oncology: Monique Grijalva MD Reason for visit: Scheduled follow-up for stage I (pT1c pN0) Right breast cancer - ER+ MS+ HER2 - DIAGNOSIS: Stage I (pT1c pN0) Right breast cancer - ER+ MS+ HER2 - Breast cancer stage: Clinical stage: cT1b,cN0 Pathological stage: pT1c pN0 Type: IDC and DCIS Grade: Intermediate grade Receptor status: ER+ (>90%), MS+ (>90%), HER2 negative (0) Menopausal status: Postmenopausal CURRENT TX: 09/18/23: Right partial mastectomy + SLNB: 10/09/23: re-excision 10/29/23: Stated anastrozole 11/19-12/03/23: RT to the right breast 12/17/23: resumed adjuvant anastrozole course complicated by severe arthralgia, fatigue and hot flashes 03/10/2024: Switched to letrozole; course complicated by worsening bone pain aches 04/20/2024: Switched back to anastrozole and has been tolerating well ONCOLOGIC HX: 08/01/23: Abnormal screening mammogram: Right breast asymmetric density at 3:00 08/02/23: Diagnostic mammogram and U/S: right breast: Mammogram revealed isodense, lobular mass in the right breast UIQ. Ultrasound demonstrated an irregular taller than wide solid mass with angular margins measuring 9 x 8 x 10 mm in the right breast at 130 o'clock located 5 cm FN. Internal echotexture is homogenous and hypoechoic. There is posterior shadowing. Scanning of the right axilla shows no evidence of pathologic adenopathy. 9x8x10 mm at 1:30 08/09/23: U/S guided biopsy: Pathology revealing grade II IDC, ER+ (>90%), MS+ (>90%), HER2 negative (0) 09/18/23: Right partial mastectomy + SLNB: grade II, 13 mm, single focus of IDC; DCIS present; SLNB:0/1: positive anterior margin 10/09/23: re-excision of positive anterior margin 10/29/23: started anastrozole 11/26/2023: Oncotype DX RS: 17 11/19-12/03/23: Adjuvant RT to the right breast 12/17/23: resumed adjuvant anastrozole; course complicated by severe arthralgia, hot flashes and fatigue 03/10/2024: Switched to letrozole; course complicated by worsening bone pain aches 04/20/2024: Switched back to anastrozole and has been tolerating well HPI: Mrs. Josselyn Garduno is a 79 y.o. female who presents today for follow up for adjuvant anastrozole for stage I ER positive, MS positive, HER2 negative right breast cancer. Josselyn is here today with her Luis Manuel. Interval history: Breast concerns: No concerns today # Screening Mammo and U/S on 07/03/24: [facility] #Monitoring treatment related side effects: #hot flashes: Very rare, none bothersome #Arthralgia: Now experiencing some stiffness in the morning in upper back and shoulders, hands, andknees. Overall stable #Vaginal dryness: Worsening vaginal dryness. No sufficient relief despite Replens #Fatigue: little bit tired but able to stay active during the day #ROS #H/O chronic neck and low back pain in context of cervical and lumbar canal stenosis: Pain has worsened over the last 2months. She has neck, bilateral shoulder and arm pain that is worse in the morning everyday but lasts all day. No new bone/back aches otherwise. No focal deficits #Left shoulder ? Rotator cuff arthropathy s/p steroids injection and f/u per ortho #New headaches: None endorsed #Monitoring compliance with/adherence to treatment: No missed doses Review of Systems Constitutional: Positive for fatigue. Negative for appetite change, chills, diaphoresis, fever and unexpected weight change. HENT: Negative for lump/mass. Eyes: Negative for eye problems. Respiratory: Negative for chest tightness, cough and shortness of breath. Cardiovascular: Negative for chest pain, leg swelling and palpitations. Gastrointestinal: Negative for abdominal distention, abdominal pain, constipation, diarrhea, nauseaand vomiting. Endocrine: Positive for hot flashes. Genitourinary: Positive for dyspareunia. Negative for difficulty urinating and dysuria. Musculoskeletal: Positive for arthralgias, back pain and neck pain. Negative for flank pain, gait problem, myalgias and neck stiffness. Chronic neck pain as per interval history Skin: Negative for rash. Neurological: Negative for dizziness, extremity weakness, gait problem, headaches, light-headedness, numbness, seizures and speech difficulty. Hematological: Negative for adenopathy. Medical History: Past Medical History: Diagnosis Date Breast cancer HTN (hypertension) Current Medications: Current Outpatient Medications Medication Sig Note Naltrexone, Bulk, 100 % Powder Take 6mgs by mouth daily anastrozole (Arimidex) 1 mg tablet Take 1 tablet by mouth daily. Indications: hormone receptor positive breast cancer diphenhydrAMINE-acetaminophen (TYLENOL PM) 25-500 mg Tablet Take by mouth. emollient combination no.111 (REMEDY PHYTOPLEX MOISTURIZER TOP) Apply topically. Phytoplex Remedy Moisturizer: Apply to area of radiation twice a day but no less than 2 hours before a treatment. UNABLE TO FIND Take by mouth daily. Nitric oxide supplements cholecalciferol, Vitamin D3, 50 mcg (2,000 unit) Capsule Take 2,000 Units by mouth daily. theanine 100 mg Tablet, Chewable Take 200 mg by mouth. clobetasoL (Temovate) 0.05 % Ointment Apply topically 2 times daily. ketoconazole (NIZORAL) 2 % Shampoo daily as needed. nystatin (MYCOSTATIN) 100,000 unit/gram Powder Prn venlafaxine (Effexor) 25 mg Tablet 37.5 mg daily. multivitamin (THERAGRAN) Tablet Take 1 tablet by mouth daily. ACETAMINOPHEN ORAL Take 2 tablets by mouth as needed. lisinopriL (Zestril) 10 mg Tablet omeprazole (PriLOSEC) 20 mg Capsule, Delayed Release(E.C.) simvastatin (Zocor) 20 mg Tablet nightly. HERBAL DRUGS ORAL Take by mouth. [place] Wort, lemon balm, passiflora, leonorus, hypericum 12/03/2023: Plans to restart tomorrow Surgical History: Past Surgical History: Procedure Laterality Date COLECTOMY 2020 MASTECTOMY, PARTIAL Right PRO INJ, FORAMEN, L/S, 1 LEVEL Right 10/09/2022 INJECTION, ANESTHETIC AGENT AND/OR STEROID, TRANSFORAMINAL EPIDURAL, LUMBAR OR SACRAL, SINGLE LEVEL(WRVU 1.9) performed by Cosmo Blanco MD at [facility] PAIN MGMT MSO PRO INJ, FORAMEN, L/S, 1 LEVEL Right 11/09/2022 INJECTION, ANESTHETIC AGENT AND/OR STEROID, TRANSFORAMINAL EPIDURAL, LUMBAR OR SACRAL, SINGLE LEVEL(WRVU 1.9) performed by Jose Tai MD at [facility] PAIN MGMT MSO PRO INJ, FORAMEN, L/S, ADDL LEVELS Right 10/09/2022 INJECTION, ANESTHETIC AGENT AND/OR STEROID, TRANSFORAMINAL EPIDURAL, LUMBAR OR SACRAL, EACH ADDITIONAL LEVEL (WRVU 1) performed by Cosmo Blanco MD at [facility] PAIN MGMT MSO PRO INJECTION DX/THER SBST INTRLMNR LMBR/SAC W/IMG GDN Right 11/21/2022 INJECTION, EPIDURAL, LUMBAR OR SACRAL (CAUDAL), WITH IMAGING GUIDANCE (WRVU 1.8) performed by Jose Tai MD at [facility] PAIN MGMT MSO PRO INJECTION PV FACET JOINT LUMBAR/SACRAL SINGLE LEVEL Right 12/11/2022 INJECTION, FACET JOINT, W\FLUORO, LUMBAR, SINGLE (WRVU 1.52) performed by Jose Tai MD at [facility] PAIN MGMT MSO XR FLUORO INJECTION DRAINAGE JOINT LG LEFT Left 04/24/2024 XR Fluoro Guided Joint Injection Large Left 04/24/2024 Luba Spear PA [facility] RAD XRAY Social History: Josselyn reports that she quit smoking about 35 years ago. Her smoking use included cigarettes. She started smoking about 50 years ago. She has a 30 pack- year smoking history. She has never used smokeless tobacco. She reports that she does not currently use alcohol. She reports that she does not use drugs. Physical Exam: Vital signs and weight : Wt Readings from Last 3 Encounters: 06/30/24 87.8 kg (193 lb 9.6 oz) 03/10/24 87 kg (191 lb 12.8 oz) 12/31/23 90.9 kg (200 lb 6.4 oz) Temp Readings from Last 3 Encounters: 06/30/24 36.1 ??C (96.9 ??F) (Temporal) 03/10/24 36.5 ??C (97.7 ??F) (Temporal) 12/31/23 36.9 ??C (98.4 ??F) (Temporal) BP Readings from Last 3 Encounters: 06/30/24 150/60 03/10/24 135/61 12/31/23 146/60 Pulse Readings from Last 3 Encounters: 06/30/24 73 03/10/24 78 12/31/23 66 0 ECOG PS: 0 Gen: alert and oriented x 3 HEENT: normocephalic, atraumatic, sclerae anicteric, oropharynx clear, moist mucous membranes Neck: supple, non-tender. No thyromegaly. Breast exam: Breast exam: Patient provided verbal consent for breast exam Right breast: Skin: No rash or erythema noted, no palpable breast masses/lumps, nipple: No spontaneous discharge Right axilla: No palpable lymphadenopathy Left breast: Skin: No rash or erythema noted, no palpable breast masses/lumps, nipple: No spontaneous discharge Left axilla: No palpable lymphadenopathy Lungs: clear to ausculation bilaterally, no wheezes, rales, ronchi, or increased work of breathing Heart: regular rate and rhythm, no murmurs, rubs, or gallops Abd: soft, nontender, nondistended, positive bowel sounds, no rebound/guarding/rigidity, no masses Ext: no cyanosis, clubbing, or edema Neuro: speech fluent, moves all four extremities spontaneously Lymph: no cervical, posterior auricular, submandibular, submental, supraclavicular, infraclavicular, axillary or inguinal lymphadenopathy Spine palpation: No focal tenderness noted Labs No labs reviewed today Pathology: Biopsy - Pathology : 08/09/2023 Breast, right: 130 o'clock, 5 cm from nipple, ultrasound-guided core biopsy: - Adenocarcinoma, invasive, ductal, nuclear grade 2. Positive for estrogen receptor [>90%], strong nuclear staining intensity Positive for progesterone receptors [>90%], strong nuclear staining intensity HER2 IHC score 0/negative Surgical Pathology s/p definitive breast surgery (RIGHT partial mastectomy +SNLB): 09/18/2023 Surgical Pathology Report Surgical Pathology Report Collected: 09/18/23 4051 Result status: Final Resulting lab: [facility] Value: [id number] Location: COTT The signing pathologist has (i) examined the relevant preparation(s) for the specimen(s) and (ii) rendered or confirmed the diagnosis(es). . Surgical Pathology DIAGNOSIS A - Right breast, partial mastectomy - - Invasive ductal carcinoma - Ductal carcinoma in-situ. - Tumor is present at the anterior margin along a broad front, and at the inferior margin (inferior margin re-excised, see below and synoptic report). B - Right breast, Deep margin, reexcision - - Benign breast tissue with usual ductal hyperplasia. C - Right breast, Medial margin, reexcision - - Benign appearing tissue with cautery artifact. D - Right breast, Superior margin, reexcision - - Benign breast tissue. E - Right breast, Lateral margin, reexcision - - Benign breast tissue with focal fat necrosis. F - Right breast, Inferior margin, reexcision - - Benign appearing tissue with cautery artifact. G - Right Axillary [place] Lymph Node - - One benign node, (0/1). Note - The cauterized glands can not be further interpreted. Step sections were examined (F). Electronically signed by: Monica Schmitz DO Verified: 09/28/2023 18:27 Pathologist Performed at: [place] [place], [place] [address] Director General: Quique Thompson MD, FCAP, CLIA Certificate: [id number] SYNOPTIC Specimen Procedure: Excision (less than total mastectomy) Specimen Laterality: Right Tumor Histologic Type: Invasive ductal carcinoma Histologic Grade (Boris Histologic Score): Glandular (Acinar) / Tubular Differentiation: Score 3 Nuclear Pleomorphism: Score 2 Mitotic Rate: Score 1 Overall Grade: Grade 2 (scores of 6 or 7) Tumor Size: 13 Millimeters (mm) Tumor Focality: Single focus of invasive carcinoma Ductal Carcinoma In Situ (DCIS): Present - Negative for extensive intraductal component (EIC) Architectural Patterns: Cribriform Nuclear Grade: Grade II (intermediate) Necrosis: Present, focal (small foci or single cell necrosis) Lymphatic and / or Vascular Invasion: Not identified Treatment Effect in the Breast: No known presurgical therapy . SYNOPTIC Margins Margin Status for Invasive Carcinoma: Invasive carcinoma present at margin Margin(s) Involved by Invasive Carcinoma: Anterior - broad front Distance to Other Close Margins: >10 mm to all other margins with additional margin excisions Margin Status for DCIS: All margins negative for DCIS Distance from DCIS to Closest Margin: 4 mm Closest Margin(s) to DCIS: Anterior Distance from DCIS to Other Margin(s): > 10 mm to all other margins Regional Lymph Nodes Regional Lymph Node Status: All regional lymph nodes negative for tumor Total Number of Lymph Nodes Examined (sentinel and non-sentinel): 1 Number of [place] Nodes Examined: 1 pTNM Classification (AJCC 8th Edition) pT Category: pT1c pN Category: pN0 N Suffix: (sn) Re-excision on 10/09/2023 Surgical Pathology Report Surgical Pathology Report Collected: 10/09/23 1415 Result status: Final Resulting lab: [facility] Value: [id number] Location: COTT The signing pathologist has (i) examined the relevant preparation(s) for the specimen(s) and (ii) rendered or confirmed the diagnosis(es). . Surgical Pathology DIAGNOSIS A - Right breast, medial margin, re-excision: - Benign skin, fibroadipose tissue, and focal breast tissue with prior surgical site changes B - Right breast, superficial/anterior margin, re-excision: - Benign breast tissue with prior surgical site changes C - Right breast, superior, re-excision: - Benign breast tissue with prior surgical site changes Electronically signed by: Pedro Bailey MD Verified: 10/17/2023 10:09 Pathologist Performed at: [place] [place], [place] [address] Director General: Quique Thompson MD, FCAP, CLIA Certificate: [id number] SPECIMEN(S) SUBMITTED A - New medial margin - stitch = medial B - Right breast re-excision, superficial/anterior C - Right breast re-excision, superior Referring Identifier: (not provided) Oncotype DX RS: 11/26/2023 Imaging: DEXA scan: 11/19/2023: T-score: -1.9, osteopenia, hip/femoral neck Assessment & Plan: Mrs. Josselyn Garduno is a 79 y.o. female with PMHx significant for but not limited to HTN, bilateral knee replacement 2/2 OA, chronic low back pain 2/2 lumbar canal stenosis and recent diagnosis ofstage I ER positive, MS positive, HER2 negative right breast cancer s/p right partial mastectomy + SLNB on 10/02/2023, reexcision on 10/09/2023, started on adjuvant anastrozole on 10/29/23; Oncotype DX RS= 7; completed adjuvant RT to the right breast (11/19- 12/03/23); who presents today for scheduled follow up. #Stage I RIGHT breast cancer - Clinical stage: cT1b,cN0 - Pathological stage: pT1c,pN0 - Receptor status: ER+ (>90%), MS+ (>90%), HER2 negative (0) - Pathology: Intermediate grade IDC and DCIS - Molecular subtype: Luminal subtype A - Oncotype Dx RS= 7 - Genetics: Genetic testing not available, [place] [facility] [place] - Staging imaging: Given that Josselyn isn't endorsing symptoms or signs of disease progression at this time, will continue to closely monitor. - Treatment: 09/18/23: Right partial mastectomy + SLNB: 10/09/23: re-excision 10/29/23: Stated anastrozole 11/19-12/03/23: RT to the right breast 12/17/23: resuming adjuvant anastrozole with recommended duration of therapy: 5 years #Monitoring treatment related side effects: #Vaginal dryness: Resistant to Replens and lubrication -Recommended pelvic exam per RATING OFFICER -Recommended low-dose Estrace vaginal cream #AI related hot flashes: Currently nonbothersome, discussed acupuncture #AI related arthralgia: Emphasized on stretching exercises Bone health: DEXA scan on 11/14/2023 revealed osteopenia at the femoral neck T-score -1.9. - started on alendronate but she did not tolerate it. Switched to Zometa every 6 months, started on03/10/2024; next dose is due in 08/2024 -Will repeat DEXA every 2yrs while on AI, next due 11/2025 -Continue with vitamin D supplementation and weightbearing exercise as tolerated -No planned dental workup: She has dentures # Surveillance: Per ASCO guidelines: We discussed that surveillance includes: -History and physical exam every 3-6 months for the first 3 years after primary therapy, every 6 to12 months for years 4 and 5 and then annually. -Patient education regarding symptoms of recurrence: Discussed concerning symptoms and signs of recurrence which include new lumps, bone pain, chest pain, abdominal pain, SOB, persistent headaches -Breast self-exam: Counseled on performing monthly breast/chest wall self-exam -Annual mammogram: Annual bilateral screening mammogram to be ordered per medical oncology s/p discussion with surgery at [facility] -Coordination of CARE: Follows with PCP annually -Pelvic exam: Regular gynecologic follow-up is recommended for all women; patients who received tamoxifen should be advised to report any vaginal bleeding to their care team Recommendations/Plan: -Continue with adjuvant anastrozole and monitor for side effects and adherence to treatment -Zometa every 6 months, next dose due in 08/2024; CMP prior -Continue with calcium and vitamin D and weightbearing exercise as tolerated -Request results of screening bilateral mammogram from [facility], on 04/10/2024; follow results. Patient endorsed that she will need further imaging. Will review these results as soon as scanned -Plan to order annual screening mammogram in 03/2025 -Monitor for resolution of vaginal dryness Follow-up: Schedule MD/MORTGAGE LOAN OFFICER visit on either 09/08/24 or 09/15/24 for Zometa; lab appointment prior forCMP. Counseling: Total time spent: 40 minutes with > 50% spend in discussion of above, [id number] time and coordination of care with the patient today Records were reviewed which included imaging, surgical reports, pathology reports and physician notes. The patient was counseled extensively. We discussed the results of all recent diagnostic tests and what these results mean. We discussed the prognosis of the disease. We discussed the risks and benefits of the treatment plan at length. The patient was given instruction for treatment and the follow up appointments were reviewed. We reviewed all the medications and educated the patient about their appropriate uses. The importance of compliance with all medications and instruction was emphasized. All aspects of the plan were discussed with the patient. The patient was given opportunities to askquestions, which we answered. Mrs. Josselyn Garduno has endorsed agreement and understanding of the treatment plan. ASCO Quality Metrics -Toxicity: Potential toxicities of therapy discussed in length with patient. Patient educated on symptom management interventions. -Pain Plan: Pain score noted in vitals above. -Fertility Risk: Postmenopausal -Advanced Care Planning: Not discussed during this visit -Oral Chemotherapy: N/A -Patient has been asked to Call the team with concerning symptoms and if being admitted to other hospitals. Patient to contact team via my portal or triage line with non urgent questions and concerns. Nichole Fowler MD Medical Oncology [facility] [employer], [facility] [employer] Office Cancer.[facility] documented in this encounter Plan of Treatment Upcoming Encounters Date Type Department Care Team (Late st Contact Info) Description 09/18/2024 10:30 AM EST Office Visit Hematology/Oncology at [address] [phone] Erica Yi APRN [address] [place] [address] DR MEDICAL ONCOLOGY [place], [place] [id number] 09/18/2024 11:00 AM EST Infusion Hematology Oncology at [address] [phone] 10/01/2024 3:45 PM EST Office Visit Functional [facility]-Ism Program at [place] [address] [place] [phone] Gene Julien Jr., PT 12/23/2024 8:00 AM EST Appointment XRay at [address] [place] [phone] River Ochoa MD [address] [place] [address] 01/21/2025 1:00 PM EDT Office Visit Radiation Oncology at [address] [phone] Tory Salazar PA [facility] HEMATOLOGY [place] [address] Scheduled Referrals Name Type Priority Associated Diagnoses Orde r Schedule Referral to Physical Therapy Outpatient Referral Routine Stage I breast cancer, right Aromatase inhibitor-associated arthralgia Ordered: 06/30/2024 documented as of this encounter Visit 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
--- OUTSIDE RECORDS SUMMARY | 2024-09-18 01:16 | XMS_ITS | Encounter Summary ---
Author Organization Formerly [facility] [place] [address] Care Team Providers Care Truck Driver Flatbed Name Role Phone Kay Caldwell MD Primary Care Provider [phone] Encounter Details Date Type Department Care Team (Latest Contact Info) Description 08/24/2024 Travel Social History Tobacco Use Types Packs/Day Years Used Date Smoking Tobacco: Former Cigarettes 2 15 0 11/11/1973 - 11/11/1988 Smokeless Tobacco: Never Comments:10-15 years quit 35 years ago Alcohol Use Standard Drinks/Week Comments Not Currently 0 (1 standard drink = 0.6 oz pur e alcohol) Recovering [address] [facility] Utilities Answer Date Recorded In the [...] place to sleep or slept in a senior living (including now)? No 10/28/2023 Sex and Gender Information Value Date Recorded Sex Assigned at Not on file Gender Identity Not on file Sexual Orientation Not on file documented as of this encounter Plan of Treatment Upcoming Encounters Date Type Department Care Team (Late st Contact Info) Description 09/18/2024 10:30 AM EST Office Visit Hematology/Oncology at [address] [phone] Erica Yi APRN [address] [place] [address] DR MEDICAL ONCOLOGY [place], [place] [phone] 09/18/2024 11:00 AM EST Infusion Hematology Oncology at [address] [phone] 10/01/2024 3:45 PM EST Office Visit Functional [facility] at [facility] [address] [place] [address] Gene Julien Jr., PT 12/23/2024 8:00 AM EST Appointment XRay at [address] [place] [address] River Ochoa MD [address] [place], [place] [address] 01/21/2025 1:00 PM EDT Office Visit Radiation Oncology at [address] [phone] Tory Salazar PA [facility] DR HEMATOLOGY [place] [address] documented as of this encounter Visit Diagnoses Not on filedocumented in this encounter Care Teams Truck Driver Flatbed Relationship Specialty Start Date End Date Kay Caldwell MD [address] [place] [address] PCP - General Family Medicine 08/15/22 documented as of this encounter
--- OUTSIDE RECORDS SUMMARY | 2024-09-18 01:16 | XMS_ITS ---
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 Past Plans No past plan information found. Radiation Treatments * No radiation treatments are documented for this patient in [facility]. Treatments may have been administered in another system.
--- OUTSIDE RECORDS SUMMARY | 2024-09-18 01:16 | XMS_ITS | Encounter Summary ---
[place] [address] Care Team Providers Care Editor House Organ Name Role Phone Kay Caldwell MD Primary Care Provider [phone] Reason for Referral * Diagnostic Test (Routine) - Closed Specialty Diagnoses / Procedures Referred By Contac t Referred To Contact Radiology Diagnoses Arthritis of left shoulder region Procedures XR Fluoro Guided Joint Injection Large Left Image Guided MSK Joint/Tendon Injection/Aspiration (Generic) River Ochoa MD [address] [place] [address] Referral ID Status Reason Start Date Expiration Date V isits Requested Visits Authorized [id number] Closed Specialty Service Requested 05/05/2024 11/04/2025 1 1 Reason for Visit * Diagnostic Test (Routine) - Closed Specialty Diagnoses / Procedures Referred By Contac t Referred To Contact Radiology Diagnoses Arthritis of left shoulder region Procedures XR Fluoro Guided Joint Injection Large Left Image Guided MSK Joint/Tendon Injection/Aspiration (Generic) River Ochoa MD [address] [place] [address] Referral ID Status Reason Start Date Expiration Date V isits Requested Visits Authorized [id number] Closed Specialty Service Requested 05/05/2024 11/04/2025 1 1 Encounter Details Date Type Department Care Team (Latest Contact Info) Description 08/24/2024 7:29 AM EDT - 08/24/2024 11:59 PM EDT Hospital Encounter XRay at [address] [place] [address] River Ochoa MD [address] [place] [address] Arthritis of left shoulder region Discharge Disposition: Home Social History Tobacco Use Types Packs/Day Years Used Date Smoking Tobacco: Former Cigarettes 2 15 0 11/11/1973 - 11/11/1988 Smokeless Tobacco: Never Comments:10-15 years quit 35 years ago Alcohol Use Standard Drinks/Week Comments Not Currently 0 (1 standard drink = 0.6 oz pur e alcohol) Recovering 41 years [facility] Utilities Answer Date Recorded In the [...] on file documented as of this encounter Discharge Instructions * Patient Instructions* Ronit Hdez - 08/24/2024 8:13 AM EDT Post Injection Patient Instructions You received an injection by Herbert Morales in the diagnostic section of radiology. Procedure: Left Shoulder Joint injection In the days following the injection: Low intensity movement and exercise of the affected joint. Avoid movements that worsen pain. No submersion of the injection site in water for 48 hours (pool/lin/hot tub, etc.), but you may shower as usual. Keep the injection site dry, clean and covered for 48 hours. If the dressing falls off, you may replace it with a Band-aid. During the first 48 hours following the injection you may experience mild discomfort at the injection site. If you experience pain or discomfort in the affected area, do the following: Apply cold compress to the affected area. No submersion of joint in water for 48-72 hours however showering is okay. If allowed by your physician, take an anti-inflammatory medication such as ibuprofen (example: Advil), Acetaminophen (example: Tylenol) or Aspirin. IMPORTANT The risk of infection exists whenever the skin is punctured. The risk can be minimized by keeping the injection site clean. However, be aware of the following signs of an infection: Redness and swelling at the injection site. Increased pain. Fever and/or chills. Decreased range of motion in the joint near the injection site. When to call the Radiology Department: Please call with any questions or concerns. If it is during regular office hours, please call [phone]. If it is after regular office hours, or on weekends or holidays, please call [phone] and ask to speak to the Atv Mechanic client relationship consultant. Revised on 12/04/22 documented in this encounter Medications at Time of Discharge Medication Sig Dispensed Refills Start Date End Date methocarbamoL (Robaxin) 750 mg tablet Take 1 tablet by mouth 4 times daily. 120 tablet 1 07/17/2024 Naltrexone, Bulk, 100 % Powder Take 6mgs by mouth daily 1 g 3 07/17/2024 methocarbamoL (Robaxin) 750 mg tablet Take 750 mg by mouth 4 times daily. estradioL (ESTRACE) 0.01 % (0.1 mg/gram) Cream Place 2 g vaginally daily. 42.5 g 3 06/30/2024 anastrozole (Arimidex) 1 mg tabletIndications:horm one receptor positive breast cancer Take 1 tablet by mouth daily. Indications: hormone receptor positive breast cancer 90 tablet 3 04/20/2024 diphenhydrAMINE-acetam inophen (TYLENOL PM) 25-500 mg Tablet Take by [...] daily. nystatin (MYCOSTATIN) 100,000 unit/gram Powder Prn 06/27/2022 venlafaxine (Effexor) 25 mg Tablet 37.5 mg daily. 12/13/2022 multivitamin (THERAGRAN) Tablet Take 1 tablet by mouth daily. HERBAL DRUGS ORAL Take by mouth. Fajardo Wort, lemon balm, passiflora, leonorus, hypericum ACETAMINOPHEN ORAL Take 2 tablets by mouth as needed. lisinopriL (Zestril) 10 mg Tablet 06/27/2022 omeprazole (PriLOSEC) 20 mg Capsule, Delayed Release(E.C.) 06/27/2022 simvastatin (Zocor) 20 mg Tablet nightly. 07/02/2022 documented as of this encounter Plan of Treatment Upcoming Encounters Date Type Department Care Team (Late st Contact Info) Description 09/18/2024 10:30 AM EST Office Visit Hematology/Oncology at [address] [phone] Erica Yi APRN [address] [place] [address] MEDICAL ONCOLOGY [place], [place] [phone] 09/18/2024 11:00 AM EST Infusion Hematology Oncology at [address] [phone] 10/01/2024 3:45 PM EST Office Visit Functional [facility] at [facility] [address] [place] [address] Gene Julien Jr., PT 12/23/2024 8:00 AM EST Appointment XRay at [address] [place] [address] River Ochoa MD [address] [place], [place] [address] 01/21/2025 1:00 PM EDT Office Visit Radiation Oncology at [address] [phone] Tory Salazar PA [facility] DR HEMATOLOGY [place] [address] documented as of this encounter Procedures Procedure Name Priority Date/Time Associated Diagnosis Comments XR FLUORO INJECTION DRAINAGE JOINT LG LEFT Routine 08/24/2024 8:16 AM EDT Arthritis of left shoulder region documented in this encounter Results * XR Fluoro Guided Joint Injection Large Left (08/24/2024 8:16 AM EDT) WORKSTATION ID [id number] [facility] Anatomical Region Laterality Modality Left Radio Fluoroscop [...] who have questions please contact the health day care worker that requested your imaging first. ? Electronically signed by: Parag Miles MD, [facility] ([phone]), at 08/24/2024 10:11 AM Narrative 08/24/2024 10:11 AM EDT LEFT GLENOHUMERAL [...] electronic medical record and allergies, as per [facility] protocol. The patient was placed supine with [...] glenohumeral joint space. 2. ??PAIN SCORE: ??Before: 510. ??After: 0/10. 3. Fluoroscopy time: 0.11 minutes. [...] relevant electronicmedical record and allergies, as per [facility] protocol. The patient was placed supine with [...] patients who have questions please contactthe health day care worker that requested your imaging first. Electronically signed by: Parag Miles MD, [facility]([phone]), at 08/24/2024 10:11 AM River Ochoa MD IMG FLUORO ORDERABLE S documented in this encounter Visit Diagnoses Diagnosis Arthritis of left shoulder region Unspecified arthropathy, shoulder region documented in this encounter Administered Medications Inactive Administered Medications - up to 3 most recent administrations Medication Order MAR Action Action Date Dose Rate Site iohexoL (Omnipaque) (300 mg/mL) solution 0-10 mL 0-10 mL, Intra-articular, ONCE, 1 dose, On Sat08/24/24 at 0845, Warning Vesicant/Irritant Medication , Radiology Contrast, Routine Given 08/24/2024 8:45 AM EDT 1 mL lidocaine (Xylocaine) 1% (10 mg/mL) injection 0-100 mg 0-100 mg (0-10 mL), Intra-articular, ONCE, 1 dose, On Sat08/24/24 at 0845, Radiology Protocol Medication, Routine Given 08/24/2024 8:45 AM EDT 5 mLs methylPREDNISolone acetate (DEPO-Medrol) (40 mg/mL) injection 0-160 mg 0-160 mg, Intra-articular, ONCE, 1 dose, On Sat08/24/24 at 0845, Radiology Protocol Medication, Routine Given 08/24/2024 8:45 AM EDT 40 mg ROPivacaine (PF) (Naropin) 0.5% (5 mg/mL) injection 0-50 mg 0-50 mg (0-10 mL), Intra-articular, ONCE, 1 dose, On Sat08/24/24 at 0845, Radiology Protocol Medication, Routine Given 08/24/2024 8:45 AM EDT 4 mLs documented in this encounter Care Teams Editor House Organ Relationship Specialty Start Date End Date Kay Caldwell MD [address] [place] [address] [place] [address] PCP - General Family Medicine 08/15/22 documented as of this encounter
--- OUTSIDE RECORDS SUMMARY | 2024-09-18 01:16 | XMS_ITS | Encounter Summary ---
Author Organization [facility] [place] [address] Care Team Providers Care Automobile Assembler Name Role Phone Kay Caldwell MD Primary Care Provider [phone] Encounter Details Date Type Department Care Team (Late st Contact Info) Description 08/26/2024 [place] [phone] Margarita Morales PA [facility] [place] [address] Social History Tobacco Use Types Packs/Day Years Used Date Smoking Tobacco: Former Cigarettes 2 15 0 11/11/1973 - 11/11/1988 Smokeless Tobacco: Never Comments:10-15 years quit 35 years ago Alcohol Use Standard Drinks/Week Comments Not Currently 0 (1 standard drink = 0.6 oz pur e alcohol) Recovering 41 years [facility] Utilities Answer Date Recorded In the past 12 months has [employer], gas, oil, or water [employer] threatened to shut off services in your [...] place to sleep or slept in a longterm (including now)? No 10/28/2023 Sex and Gender Information Value Date Recorded Sex Assigned at Not on file Gender Identity Not on file Sexual Orientation Not on file documented as of this encounter Plan of Treatment Upcoming Encounters Date Type Department Care Team (Late st Contact Info) Description 09/18/2024 10:30 AM EST Office Visit Hematology/Oncology at [address] [phone] Erica Yi APRN [address] [place] [address] MEDICAL ONCOLOGY [place], [place] [address] 09/18/2024 11:00 AM EST Infusion Hematology Oncology at [address] [phone] 10/01/2024 3:45 PM EST Office Visit Functional [facility] at [facility] [address] [place] [address] Gene Julien Jr., PT 12/23/2024 8:00 AM EST Appointment XRay at [address] [place] [phone] River Ochoa MD [address] [place] [address] 01/21/2025 1:00 PM EDT Office Visit Radiation Oncology at [address] [phone] Tory Salazar PA [facility] [place] [address] documented as of this encounter Visit Diagnoses Not on filedocumented in this encounter Care Teams Automobile Assembler Relationship Specialty Start Date End Date Kay Caldwell MD [address] [place] [address] [address] [place] [address] PCP - General Family Medicine 08/15/22 documented as of this encounter
--- OUTSIDE RECORDS SUMMARY | 2024-09-18 01:16 | XMS_ITS ---
Author Organization Unknown Address [address] [place] [phone] Phone Care Team Providers Care Gas Line Installer Supervisor Name Role Phone MARY Godinez Attending Unavailable GOYO CURTIS Primary Unavailable Social History Type Status Start Date End Date Code Code Syst em Smoking History Former smoker 1965 04/23/19957685 [id number] SNOMED CT Sex Female Hospital Discharge Instructions [...] W/O CONTRAST 2023 CT ABDOMEN/PELVIS W/ CONTRAST MRI L SPINE W/O CONTRAST 03/13/2022 NM HEPATOBILIARY CCK 02/07/2022 US RENAL 01/24/2022 Encounters Encounter Diagnosis Start Date Code Code Sys tem Idiopathic osteoarthritis 07/07/2024 [id number] SN OMED-CT Personal Care Team Section Performer Name Performer Role Active Date Inactive Da te
--- OUTSIDE RECORDS SUMMARY | 2024-09-18 01:16 | XMS_ITS ---
Author Organization Unknown Address [address] [place] [phone] Phone Care Team Providers Care Ccie Name Role Phone JEREMIAS SARAVIA Attending Boom Yarbrough Primary Unavailable Results US RETROPERITONEAL COMPLETE - Completed: 01/24/2022 10:25 LOINC: RENAL ULTRASOUND: Kidneys are normal in size and shape. There is no evidence of a renal mass, hydronephrosis, or nephrolithiasis. Urinary bladder is unremarkable in appearance with pre and post-void volume, 390 cc and 0 cc respectively. Ureteral jets were not visualized. Abdominal aorta is of normal diameter. CONCLUSION: Negative renal ultrasound. Dictated by: KELLY CADENA RADIOLOGIST Transcribed by: SHONA 01/24/22/17:17 [id number] Electronically Reviewed and Signed By: TRACIE CADENA RADIOLOGIST 01/29/22 11:27 Copy for: JEREMIAS SARAVIA via fax Copy for: [facility] Social History Type Status Start Date End Date Code Code Syst em Smoking History Former smoker 1965 04/23/19954162 [id number] SNOMED CT Sex Female Hospital Discharge Instructions [...] Date Code Code Sys tem Abdominal pain 01/24/2022 [id number] SNOMED-CT Personal Care Team Section Performer Name Performer Role Active Date Inactive Da te
--- OUTSIDE RECORDS SUMMARY | 2024-09-18 01:16 | XMS_ITS ---
Author Organization Unknown Address [address] [place] [phone] Phone Care Team Providers Care Sales Lead Generator Name Role Phone GOYO CURTIS Attending Unavailable Results CT ABD PELVIS W IV CONTRAST ONLY - Completed: 03/13/2022 10:57 LOINC: Radiation optimization: All CT scans at this facility use at least one of these dose optimization techniques: automated exposure control; mA and/or kV adjustment per patient size (includes targeted exams where dose is matched to clinical indication); or iterative reconstruction. CT OF THE ABDOMEN AND PELVIS Comparison is made with ultrasound dated 13 April 2021. Images were performed from the lung bases through the ischial tuberosities after IV and oral contrast. The heart size is normal. There is a small hiatal hernia. The lung bases are clear. The liver shows numerous cysts which were noted on prior ultrasound. No suspicious masses are identified. The gallbladder is somewhat contracted. There is no biliary dilatation or evidence of gallstones. The spleen, adrenals, pancreas and kidneys are unremarkable. The aorta shows atherosclerotic changes. The appendix is normal. There is moderate to increased quantity of stool seen throughout the colon. There is an anastomosis at the rectosigmoid which does not show evidence of narrowing or mass. The small bowel is unremarkable. There is a small amount of fat at the umbilicus. Degenerative changes are noted in the spine. IMPRESSION: No acute abnormality. Incidental findings are mentioned above. Dictated by: CEO BRANDON CHATMAN MD Transcribed by: [facility] 03/14/22/09:58 D Sunday, March 13, 2022 9:38:46 AM [id number] Electronically Reviewed and Signed By: BRANDON CHATMAN MD 03/14/22 21:56 <<COSIGNATURE_PENDING>> Copy for: GOYO KIRSTEN via fax Copy for: [facility] MG[facility] MR LS SPINE WO CONTRAST - Co mpleted: 03/13/2022 08:00 LOINC: MRI OF THE LUMBAR SPINE T1, T2 and STIR sagittal, T1 and T2 axial and T1 coronal sequences were performed. The marrow signal is normal. the vertebral bodies are well maintained in height. The conus medullaris terminates at T12-L1. There is minimal bulging at the T12-L1 and L1-2 discs. There are end plate osteophytes and mild to moderate disc bulging at L2-3. The disc bulging is eccentric toward the right and causes moderate right neural foraminal narrowing. There are mild facet degenerative changes and mild ligamentous hypertrophy but no significant central canal stenosis. At L3-4, there is disc bulging and osteophytes which are eccentric toward the right side. There are mild facet degenerative changes and mild ligamentous hypertrophy. There is no significant central canal stenosis. There is moderate to severe right neural foraminal narrowing and moderate left neural foraminal narrowing. At L4-5, there is broad-based disc bulging. There are endplate osteophytes which are eccentric toward the left. There are facet degenerative changes which combine with the disc osteophytes to cause severe left neural foraminal narrowing. There is mild right neural foraminal narrowing. There is ligamentous hypertrophy combined the disc bulging to produce mild central canal stenosis. At L5-S1, there is some narrowing of the disc with osteophytes projecting toward the left. There is mild disc bulging. There are mild facet degenerative changes. There is moderate left neural foraminal narrowing. There is no significant central canal stenosis. There is a small nerve root sheath cyst at the S3 level on the right. The aorta is normal in diameter. IMPRESSION: Multilevel degenerative disc changes and facet degenerative changes cause neural foraminal narrowing bilaterally. Mild central canal stenosis is noted at L4-5. Dictated by: CEO BRANDON CHATMAN MD Transcribed by: [facility] 03/14/22/13:30 D Sunday, March 13, 2022 2:23:55 PM [id number] Electronically Reviewed and Signed By: BRANDON CHATMAN MD 03/14/22 22:09 Copy for: GOYO CURTIS via fax Copy for: [facility] Social History Type Status Start Date End Date Code Code Syst em Smoking History Former smoker 1965 04/23/19955642 [id number] SNOMED CT Sex Female Hospital Discharge Instructions [...] Diagnosis Start Date Code Code Sys tem Other intervertebral disc degeneration, lumbar region 03/13/2022 SNOMED-CT Personal Care Team Section Performer Name Performer Role Active Date Inactive Da yan
--- OUTSIDE RECORDS SUMMARY | 2024-09-18 01:16 | XMS_ITS | Encounter Summary ---
Author Organization [facility] [place] [address] Care Team Providers Care Engine Turner Name Role Phone Kay Caldwell MD Primary Care Provider [phone] Reason for Visit * Reason Comments Back Pain * Consultation (Routine) - Authorized Specialty Diagnoses / Procedures Referred By Contac t Referred To [facility] Diagnoses Lumbar spondylosis Jazmín Santiago, RETAINING ROOM CUTTER [facility] [place] [address] Ariana Brock, OT Referral ID Status Reason Start Date Expiration Date Visits Requested Visits Authorized [id number] Authorized Consult, Test & Treat 07/17/2024 07/17/2025 5 5 Encounter Details Date Type Department Care Team (Late st Contact Info) Description 07/22/2024 2:00 PM EDT Office Visit Functional Gnosticist Program at [facility] [address] [place] [address] Ariana Brock, OT Lumbar spondylosis Social History Tobacco Use Types Packs/Day Years Used Date Smoking Tobacco: Former Cigarettes 2 15 0 11/11/1973 - 11/11/1988 Smokeless Tobacco: Never Comments:10-15 years quit 35 years ago Alcohol Use Standard Drinks/Week Comments Not Currently 0 (1 standard drink = 0.6 oz pur e alcohol) Recovering 41 years [facility] Utilities Answer Date Recorded In the past 12 months has [email or web address] electric, gas, oil, or water company threatened [...] place to sleep or slept in a long-term (including now)? No 10/28/2023 Sex and Gender Information Value Date Recorded Sex Assigned at Not on file Gender Identity Not on file Sexual Orientation Not on file documented as of this encounter Miscellaneous Notes * Initial Evaluation - Ariana Brock, OT - 07/22/2024 2:00 PM EDT [facility] Occupational Therapy Evaluation Subjective: Ms. Garduno reports that the primary reason for seeking Occupational Therapy services through the [facility] is low back and left shoulder pain that interferes with completion of meaningful and valued daily activities and hinders quality of life. They were referred by Jazmín Santiago APRN. Ms. Garduno is well known to this therapist, as she participated in the Functional Gnosticist Program back in April of 2023. Ms. Garduno reports she hasn't been completing her home exercise routine due to multiple health concerns, specifically a partial thickness left rotator cuff tear. She expressed she would like to know what is safe for her to complete within her home exercise routine. Brief Medical History Ms. Garduno reports a long standing history of low back pain, however recently started experiencing left shoulder pain with activities that require flexion of the shoulder. She had a MRI of the leftshoulder done which showed left shoulder glenohumeral osteoarthritis and a partial thickness rotator cuff tear. She reports the orthopedic PA gave her options for a shoulder replacement, however she does not wish to have that as the recovery process is long. She has been receiving some injections which are helpful in a way. She also has a history of breast cancer and finished her round of radiation and chemotherapy. She did her radiation and chemotherapy. She wants to get back on a routine. She is going to the gym and is walking on the treadmill and completing some; Went to PT And is feeling the shoulder movements/muscles; Previous treatments include: [] Surger(ies) [x] Medications [x] Steroid injections [] Nerve Blocks / Ablations: [x] Physical therapy: (specify PT interventions); shoulder [x] Occupational therapy: through [facility] [] career technical counselor: [] Graded motor imagery: [] Cognitive behavioral therapy / Pain self-management training [x] Functional Gnosticist or IPRP [] Acupuncture / CIH interventions [] Other: Medical history was briefly reviewed and she reports the following activity limiting health problems that interfere with accomplishing valued daily activities: total knee replacements, osteoarthritis, history of breast cancer Allergies Allergen Reactions Doxycycline Duloxetine Itching Opioids - Morphine Analogues Nausea And Vomiting Projectile vomiting Medications: Current Outpatient Medications: methocarbamoL (Robaxin) 750 mg tablet, Take 1 tablet by mouth 4 times daily., Disp: 120 tablet, Rfl: 1 Naltrexone, Bulk, 100 % Powder, Take 6mgs by mouth daily, Disp: 1 g, Rfl: 3 methocarbamoL (Robaxin) 750 mg tablet, Take 750 mg by mouth 4 times daily., Disp: , Rfl: estradioL (ESTRACE) 0.01 % (0.1 mg/gram) Cream, Place 2 g vaginally daily., Disp: 42.5 g, Rfl: 3 anastrozole (Arimidex) 1 mg tablet, Take 1 tablet by mouth daily. Indications: hormone receptor positive breast cancer, Disp: 90 tablet, Rfl: 3 diphenhydrAMINE-acetaminophen (TYLENOL PM) 25-500 mg Tablet, Take by mouth., Disp: , Rfl: emollient combination no.111 (REMEDY PHYTOPLEX MOISTURIZER TOP), Apply topically. Phytoplex Remedy Moisturizer: Apply to area of radiation twice a day but no less than 2 hours before a treatment., Disp: , Rfl: UNABLE TO FIND, Take by mouth daily. Nitric oxide supplements, Disp: , Rfl: cholecalciferol, Vitamin D3, 50 mcg (2,000 unit) Capsule, Take 2,000 Units by mouth daily., Disp: ,Rfl: theanine 100 mg Tablet, Chewable, Take 200 mg by mouth., Disp: , Rfl: clobetasoL (Temovate) 0.05 % Ointment, Apply topically 2 times daily., Disp: , Rfl: nystatin (MYCOSTATIN) 100,000 unit/gram Powder, Prn, Disp: , Rfl: venlafaxine (Effexor) 25 mg Tablet, 37.5 mg daily., Disp: , Rfl: multivitamin (THERAGRAN) Tablet, Take 1 tablet by mouth daily., Disp: , Rfl: HERBAL DRUGS ORAL, Take by mouth. [place] Wort, lemon balm, passiflora, leonorus, hypericum, Disp: , Rfl: ACETAMINOPHEN ORAL, Take 2 tablets by mouth as needed., Disp: , Rfl: lisinopriL (Zestril) 10 mg Tablet, , Disp: , Rfl: omeprazole (PriLOSEC) 20 mg Capsule, Delayed Release(E.C.), , Disp: , Rfl: simvastatin (Zocor) 20 mg Tablet, nightly., Disp: , Rfl: Pain Pain: Ms. Garduno reports low back and left shoulder pain. Pain Precipitants: [] Standing [] Sitting [] Walking [] Laying down [x] Activity [] Cold or weather changes [] Stress [] Stairs [x] Other: overhead reaching - feels sensation back of the left shoulder mixing for cooking is sometimes challenging Pain Coping Strategies: Passive [x] Ice / Heat [] Avoiding using painful body parts [] Avoiding physical activities [x] Medication - muscle relaxants, back and muscle aleve, aleve PM [] Distraction with television / social media [] Asking others to complete tasks [] Ignoring / pushing through until pain gets too bad (pain based pacing) [] Resting / laying down / going to bed [] Prayer Active [x] Stretching exercises [] Mindful movement, including yoga, angel chi [] Cardiovascular or strength exercise [] Time based pacing strategies [] Distraction with activity [] Relaxation or mindfulness exercises including meditation, PMR, diaphragmatic breathing [] Positive coping statements [] Talking with friends/loved ones [x] Other: adapting task Occupational Profile Living Situation/Social History: Ms. Garduno lives in a home with her and dog. is very supportive. Sleep Hygiene: Current sleep complaints: None, feels like she sleeps fine; she has learned to sleep in different positions to assist with left shoulder symptoms Daily Functioning: She reports she just primarily wants to resume her regular exercise routine safely. She continues to go to the gym Sat/Sat/Saturday, however would like to resume her routine at home.Other than that, her routine at home is mostly completing things around her house or running errands. Global Mental Function: With gross screening of patient's global mental functions, patient demonstrates orientation to person, place, time and situation. 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 Garduno reports Mild limitations in self-care and leisure activities. She reports most difficulty with lifting overhead due to left shoulder pain. Ms. Garduno's functional goals include: Pain interference: [] Occupational: [] Activities of daily living: [x] Recreational: Resume regular exercise routine [] Relationship / family [] Other Main Goal: Be able to resume regular exercise routine safely with new left shoulder pain. Analysis of Occupational Performance Functional Mobility: normal. AROM: Right upper and lower extremities within normal limits except for left upper extremity. Lumbar Spine Flexion (0-90??) 85?? Extension (0-30??) 30?? SLR Right (0-90??) 80?? SLR Left (0-90??) 80?? Cervical Spine Flexion (0-60??) 70?? Extension (0-50??) 70?? Rot. Right (0-80??) 70?? Rot. Left (0-80??) 70?? Lat. Flex Right (0-45??) 40?? Lat. Flex Left (0-45??) 35?? Shoulder Right Left Flexion (0-180) WFL?? 125?? Extension (0-60) WFL?? 35?? Abduction (0-180) WFL?? 112?? Functional Strength Testing: PILE Testing lbs/HR Floor To Waist 15 / 105 One-time Max 20 / 105 Reason for Stop Point: Some discomfort in left shoulder with squat lifting Assessment/Clinical Decision Making: Ms. Garduno is a pleasant 79 year old female with a long standing history of low back pain and recent diagnosis of a left rotator cuff tear. Signs and symptoms are consistent with lumbar spondylosis and a glenohumeral osteoarthritis with a partial thickness rotator cuff tear. She is unable to fully participate in ADL, IADL, and recreational activities due to performance deficits in decreased functional strength, decreased AROM of the left upper extremity, decreased endurance, fear of re- injury, and fear of increased pain. She will benefit from occupational therapy services with up to 4 visits for review of her home exercise plan and/or to adapt any activities as necessary to improve quality of life and engagement in her meaningful occupations. Intervention Plan: Occupational therapy follow-up in one month weeks to provide training for symptom management techniques and functional improvement. Ms. Garduno was instructed in a home exercise program as noted below. Along with the prescribed exercises, we discussed the principles of symptom self- monitoring and posture correction. she knows todiscontinue any movement or activity that causes true worsening or peripheralization of symptoms. [facility] Self-Care Program: - Discussed with Ms. Garduno to resume mat strengthening exercises that she completed in [facility] at least 1-2x/week - Eliminate waist to shoulder lifting to prevent further tearing of the left rotator cuff - Start off light with straight leg lifting, starting with 10-15 lbs on a day where she has not taken any pain relieving medication and try 2 sets of 10 - Start with 20 lbs for squat lifting, if this is too challenging and painful on the left shoulder,revert to no weight or complete with a light dumbbell. - plan to communicate with [facility] physical therapist for any shoulder exercises she will call with any questions or concerns. Short term goals include the following: Demonstrate independence in home exercise program Participate in development and implementation of self-care interventions utilizing strategies for schedule planning, self-management techniques (e.g. joint protection, energy conservation, work simplification, pacing), environmental modifications, home exercise and flare up plan development to control pain, increase function, and improve quality of life. The plan has been discussed with Josselyn Garduno and she has agreed with the intervention plan. 45 minutes were spent today to evaluate Ms. Garduno, test physical capacities and develop a plan of care, and 15 minutes were spent addressing short term goals. Evaluation Complexity Low Complexity Mod Complexity Severe Complexity Occupational Profile and History Brief Expanded Extensive Assessment/Performance Deficits (Physical, Cognitive, Psychosocial) 1-3 3-5 5 or more Clinical Decision Making Low Limited treatment, no modification of assessment, no co-morbidities Moderate Detailed assessment, min-mod modifications of assessment, has comorbidities High Multiple treatment options, significant modification of assessment, has comorbidities. documented in this encounter Plan of Treatment Upcoming Encounters Date Type Department Care Team (Late st Contact Info) Description 09/18/2024 10:30 AM EST Office Visit Hematology/Oncology at [address] [phone] [address]i [address] MEDICAL ONCOLOGY [place], [place] [address] 09/18/2024 11:00 AM EST Infusion Hematology Oncology at [address] [phone] 10/01/2024 3:45 PM EST Office Visit Functional Gnosticist Program at [place] [address] [place] [address] Gene Julien Jr., PT 12/23/2024 8:00 AM EST Appointment XRay at [address] [place] [phone] River Ochoa MD [address] [place] [address] 01/21/2025 1:00 PM EDT Office Visit Radiation Oncology at [address] [phone] Tory Salazar PA [facility] [place] [address] documented as of this encounter Procedures Procedure Name Priority Date/Time Associated Diagnosis Comments OT PLAN OF CARE CERT/RE-CERT Routine 07/22/2024 3:35 PM EDT Lumbar spondylosis documented in this encounter Visit Diagnoses Diagnosis Lumbar spondylosis Lumbosacral spondylosis without myelopathy documented in this encounter Care Teams Engine Turner Relationship Specialty Start Date End Date Kay Caldwell MD [address] [place] [address] [address] [place], [place] [address] PCP - General Family Medicine 08/15/22 documented as of this encounter
--- OUTSIDE RECORDS SUMMARY | 2024-09-18 01:16 | XMS_ITS | Encounter Summary ---
Author Organization [facility] [place] [address] Care Team Providers Care Hardware Technician Name Role Phone Kay Caldwell MD Primary Care Provider [phone] Encounter Details Date Type Department Care Team (Latest Contact Info) Description 06/30/2024 Travel Social History Tobacco Use Types Packs/Day Years Used Date Smoking Tobacco: Former Cigarettes 2 15 0 11/11/1973 - 11/11/1988 Smokeless Tobacco: Never Comments:10-15 years quit 35 years ago Alcohol Use Standard Drinks/Week Comments Not Currently 0 (1 standard drink = 0.6 oz pur e alcohol) Recovering 41 years [facility] Utilities Answer Date Recorded In [...] place to sleep or slept in a group home (including now)? No 10/28/2023 Sex and Gender Information Value Date Recorded Sex Assigned at Not on file Gender Identity Not on file Sexual Orientation Not on file documented as of this encounter Plan of Treatment Upcoming Encounters Date Type Department Care Team (Late st Contact Info) Description 09/18/2024 10:30 AM EST Office Visit Hematology/Oncology at [address] [phone] Erica Yi APRN [address] [place] [address] DR MEDICAL ONCOLOGY [place], [place] [phone] 09/18/2024 11:00 AM EST Infusion Hematology Oncology at [address] [phone] 10/01/2024 3:45 PM EST Office Visit Functional Anglican Program at [facility] [address] [place] [address] Gene Julien Jr., PT 12/23/2024 8:00 AM EST Appointment XRay at [address] [place] [address] River Ochoa MD [address] [place], [place] [address] 01/21/2025 1:00 PM EDT Office Visit Radiation Oncology at [address] [phone] Tory Salazar PA [facility] DR [place] [address] documented as of this encounter Visit Diagnoses Not on filedocumented in this encounter Care Teams Hardware Technician Relationship Specialty Start Date End Date Kay Caldwell MD [address] [place] [address] PCP - General Family Medicine 08/15/22 documented as of this encounter
--- OUTSIDE RECORDS SUMMARY | 2024-09-18 01:16 | XMS_ITS | Continuity of Care Document ---
Author Organization [facility] Address [address] [place] [address] Care Team Providers Care Grinder Operator External Tool Name Role Phone Kay Caldwell Primary Care Physician [phone] Encounter [facility]_[place] Date(s): 09/14/24 - 09/14/[address] [phone] Discharge Disposition: Home Allergies, Adverse Reactions, Alerts Substance Criticality Severity Reaction Reaction Severity Status doxycycline Unable to assess criticality Unknown Active morphine Unable to assess criticality Unknown Active DULoxetine Unable to assess criticality Unknown Itching Active Assessment and Plan Future Appointments Future Scheduled Tests Radiology* US Extremity Nonvascular Limited Right 09/14/24 Immunizations Given and Recorded Vaccine Date Status [...] perineum, # 90 g, 2 Refill(s), Pharmacy: [facility] ([facility] ) Start Date: 03/28/23 Status: Ordered ketoconazole 1% topical shampoo 1 vinnie, Topical, every 3 day, # 200 mL, 3 Refill(s), Pharmacy: [facility], 158, cm, 02/03/24 8:39:00 EDT, Height, 90.5, kg, 02/03/24 8:51:00 EDT, Weight Dosing Start Date: 02/04/24 Status: Ordered lisinopril 10 mg oral tablet 1 tab, Oral, Daily, # 90 tab, 3 Refill(s), Pharmacy: [facility], 158, cm, 02/03/24 8:39:00EDT, Height, 90.5, kg, 02/03/24 8:51:00 EDT, Weight Dosing Start Date: 08/24/24 Status: Ordered multivitamin adult, oral tablet 1 tab, Oral, Daily, 0 Refill(s) Start Date: 06/25/22 Status: Ordered nystatin 100,000 units/g topical powder See Instructions, apply a thin layer to ismael affacted area twice daily as needed, # 60 g, 1 Refill(s), Pharmacy: [facility] ([facility]) Start Date: [...] grade 1 internal hemorrhoids 5Right, in [place] 6left 7[place]; BSO Social History Social History Type Response Tobacco Former tobacco user Tobacco Use:. 1 Sex Female Sex Representation Female (finding) 1Quit 1987 Patient Care team information Care Team Personnel Name: Kay Caldwell MD Position: Physician Member Role: Informed Provider Address: [address] [place] [address] [place] [address]- [place] Care Team Related Persons Name: ANNIE PARISH Insurance Providers Guarantor name: KIRK PARISH Health Plan Information #: 1 Payer: MEDICARE B [employer] Member Number: NA Policy Number: NA Health Plan Information #: 2 Payer: [place] [employer] Member Number: NA Policy Number: NA
--- OUTSIDE RECORDS SUMMARY | 2024-09-18 01:16 | XMS_ITS | Encounter Summary ---
[place] [address] Care Team Providers Care Silverlight Developer Name Role Phone Kay Caldwell MD Primary Care Provider [phone] Reason for Visit * Reason Onset Date Comments Medication Refill 06/11/2024 Encounter Details Date Type Department Care Team (Late st Contact Info) Description 06/11/2024 Telephone [facility] [place] [phone] Angeles Arteaga tire recapper Refill Social History Tobacco Use Types Packs/Day Years Used Date Smoking Tobacco: Former Cigarettes 2 15 0 11/11/1973 - 11/11/1988 Smokeless Tobacco: Never Comments:10-15 years quit 35 years ago Alcohol Use Standard Drinks/Week Comments Not Currently 0 (1 standard drink = 0.6 oz pur e alcohol) Recovering 41 years [facility] Utilities Answer Date Recorded In the past 12 months has [employer], gas, oil, or water [employer] threatened to shut off services in your [...] to sleep or slept in a senior care (including now)? No 10/28/2023 Sex and Gender Information Value Date Recorded Sex Assigned at Not on file Gender Identity Not on file Sexual Orientation Not on file documented as of this encounter Miscellaneous Notes * Telephone Encounter - Angeles Arteaga RN - 06/11/2024 2:18 PM EDT Out going return call to Josselyn to tell her that the Naltrexone script was sent to [facility] and was confirmed electronicly. documented in this encounter Plan of Treatment Upcoming Encounters Date Type Department Care Team (Late st Contact Info) Description 09/18/2024 10:30 AM EST Office Visit Hematology/Oncology at [address] [phone] Erica Yi APRN [address] [place] [address] [place] [address] 09/18/2024 11:00 AM EST Infusion Hematology Oncology at [address] [phone] 10/01/2024 3:45 PM EST Office Visit Functional Uatsdin Program at [facility] [address] [place] [phone] Gene Julien Jr., PT 12/23/2024 8:00 AM EST Appointment XRay at [address] [place] [address] River Ochoa MD [address] [place] [address] 01/21/2025 1:00 PM EDT Office Visit Radiation Oncology at [address] [phone] Tory Salazar PA [facility] HEMATOLOGY [place] [address] documented as of this encounter Visit Diagnoses Not on filedocumented in this encounter Care Teams Silverlight Developer Relationship Specialty Start Date End Date Kay Caldwell MD [address] [place] [address] [address] [place], [place] [address] PCP - General Family Medicine 08/15/22 documented as of this encounter
--- OUTSIDE RECORDS SUMMARY | 2024-09-18 01:16 | XMS_ITS | Continuity of Care Document ---
Author Organization [facility] Address [address] [place] [address] Care Team Providers Care Policy Analyst Name Role Phone Kay Caldwell Primary Care Physician [phone] Encounter [facility] Date(s): 02/03/24 - 02/03/24 [facility] [address] [place] [address] Discharge Disposition: Home Allergies, Adverse Reactions, Alerts [...] g, 2 Refill(s), Pharmacy: [facility] ([facility] ) Start Date: 03/28/23 Status: [...] needed, # 60 g, 1 Refill(s), [facility]) Start Date: 06/27/22 Status: Ordered omeprazole 20 mg oral delayed release capsule 1 cap, Oral, Daily, # 90 cap, 3 Refill(s), Pharmacy: [facility] ([facility]) Start Date: 05/02/23 Status: Ordered [...] internal hemorrhoids 5Right, [facility] [place] [facility] Social History Social History Type Response Tobacco Former tobacco user Tobacco Use:. 1 Sex Female 1Quit 1987 Patient Care team information Care Team Personnel Name: Kay Caldwell MD Position: Physician Member Role: Informed Provider Address: Address: [address] [place] [address] Care Team Related Persons Name: ANNIE PARISH Address: Home [address] [place] [phone]
--- OUTSIDE RECORDS SUMMARY | 2024-09-18 01:16 | XMS_ITS | Encounter Summary ---
Author Organization [facility] [place] [address] Care Team Providers Care Mechanical Maintenance Engineer Name Role Phone Kay Caldwell MD Primary Care Provider [phone] Encounter Details Date Type Department Care Team (Latest Contact Info) Description 08/31/2024 Travel Social History Tobacco Use Types Packs/Day Years Used Date Smoking Tobacco: Former Cigarettes 2 15 0 11/11/1973 - 11/11/1988 Smokeless Tobacco: Never Comments:10-15 years quit 35 years ago Alcohol Use Standard Drinks/Week Comments Not Currently 0 (1 standard drink = 0.6 oz pur e alcohol) Recovering 41 years [facility] Utilities Answer Date Recorded In the [...] 10:30 AM EST Office Visit Hematology/Oncology at [address] [phone] Erica Yi APRN [address] [place] [address] DR MEDICAL ONCOLOGY [place], [place] [phone] 09/18/2024 11:00 AM EST Infusion Hematology Oncology at [address] [phone] 10/01/2024 3:45 PM EST Office Visit Functional [facility] Program at [facility] [place] [address] [place] [address] Gene Julien Jr., PT 12/23/2024 8:00 AM EST Appointment XRay at [address] [place] [address] River Ochoa MD [address] [place], [place] [address] 01/21/2025 1:00 PM EDT Office Visit Radiation Oncology at [address] [phone] Tory Salazar PA [facility] DR [place] [address] documented as of this encounter Visit Diagnoses Not on filedocumented in this encounter Care Teams Mechanical Maintenance Engineer Relationship Specialty Start Date End Date Kay Caldwell MD [address] [place] [id number] PCP - General Family Medicine 08/15/22 documented as of this encounter
--- OUTSIDE RECORDS SUMMARY | 2024-09-18 01:16 | XMS_ITS ---
Author Organization Unknown Address [address] [place] [phone] Phone Care Team Providers Care Welt Slasher Name Role Phone MARY Godinez Attending Unavailable GOYO CURTIS Primary Unavailable Results XR SHOULDER 2V OR MORE LT* - Completed: 05/21/2024 13:09 LOINC: [facility] RADIOLOGY [place], [place] [address] RADIOLOGY PACS ADMINISTRATIVE ASSISTANT RECEPTIONIST REPORT Patient Name: KIRK PARISH MRN: Sex: : Age: [id number] F [id number] Account: Accession: Admit: StayType: [id number] 05/21/2024 O Ordered: Order ID: Submitted: Ordering Provider: 05/21/2024 12:33 [id number] AVIS JUAREZ Completed: Technologist: Resulted: 05/21/2024 13:03 05/21/2024 21:37 FINAL REPORT EXAMINATION: XR SHOULDER 2V OR MORE LT CLINICAL HISTORY: Entered by ordering service: REASON: PAIN, JOINT, SHOULDER, LEFT ADD'L INFO: GRASHEY, SCAP Y, AXILLARY TECHNIQUE: LEFT shoulder4 views COMPARISON: Radiographs, February 23, 2013. FINDINGS: BONES: No acute fracture is present. AC JOINT: Normal AC joint alignment with subacromial spur No os acromiale. GLENOHUMERAL JOINT: Small osteophytes. Concentric glenoid wear with moderate to severe narrowed joint space.fbb SOFT TISSUE: periarticular calcifications- 2 foci of amorphous mineralization around posterior humeral head represents infraspinatus calcific tendinopathy, SURVEY: No opacity seen following brief survey of the soft tissues including lung parenchyma. IMPRESSION: No acute fracture or dislocation Calcific rotator cuff tendinopathy. Thank you for letting us participate in the care of this patient. If you are a health care provider and have any questions regarding this report, please contact the number below. For patients who have questions please contact the health farm or ranch animal caretaker that requested your imaging first. Electronically signed by: Luz Watts MD [facility] ([phone]), at 05/21/2024 9:37 PM Social History Type Status Start Date End Date Code Code Syst em Smoking History Former smoker 1965 04/23/19950172 [id number] SNOMED CT Sex Female Hospital Discharge Instructions [...] Date Code Code Sys tem Idiopathic osteoarthritis 05/21/2024 [id number] SN OMED-CT Personal Care Team Section Performer Name Performer Role Active Date Inactive Da te
--- OUTSIDE RECORDS SUMMARY | 2024-09-18 01:16 | XMS_ITS | Encounter Summary ---
Author Organization [facility] [place] [address] Care Team Providers Care Control Center Operator Name Role Phone Kay Caldwell MD Primary Care Provider [phone] Reason for Referral * Consultation (Routine) - Authorized Specialty Diagnoses / Procedures Referred By Contac t Referred To Contact Pain and Spine Center Diagnoses Lumbar spondylosis Jazmín Santiago APRN [facility] [place] [address] Ariana Brock, OT Referral ID Status Reason Start Date Expiration Date Visits Requested Visits Authorized [id number] Authorized Consult, Test & Treat 07/17/2024 07/17/2025 5 5 Reason for Visit * Reason Comments Follow-up F/U to Meds refill Encounter Details Date Type Department Care Team (Late st Contact Info) Description 07/17/2024 1:00 PM EDT Office Visit [place] [phone] Jazmín Santiago BRICKLAYER APPRENTICE [facility] [place] [address] Lumbar spondylosis (Primary Dx) Social History Tobacco Use Types Packs/Day Years Used Date Smoking Tobacco: Former Cigarettes 2 15 0 11/11/1973 - 11/11/1988 Smokeless Tobacco: Never Comments:10-15 years quit 35 years ago Alcohol Use Standard Drinks/Week Comments Not Currently 0 (1 standard drink = 0.6 oz pur e alcohol) Recovering 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 [facility] Utilities Answer Date Recorded In the [...] Pulse 80 07/17/2024 12:53 PM EDT Temperature - - Respiratory Rate - - Oxygen Saturation 98% 07/17/2024 12:53 PM EDT Inhaled Oxygen Concentration - - Weight 86.2 kg (190 lb) 07/17/2024 12:53 PM EDT Height 157.5 cm (5' 2) 07/17/2024 12:53 PM EDT Body Mass Index 34.75 07/17/2024 12:53 PM EDT documented in this encounter Patient Instructions * Patient Instructions* Jazmín Santiago APRN - 07/17/2024 1:00 PM EDT Fu with Ariana either her or FRP documented in this encounter Progress Notes * Lorna Josue - 07/17/2024 1:00 PM EDT Images from the original note were not included. [facility] FOLLOW UP Date of Consultation: July 17, 2024 Chief Complaint: Right sided pain , hurts Travels to abdomen History of Present Illness: Ms. Garduno is a 79 y.o. year-old female who presents to the pain clinic with right-sided flank pain that is constant. The symptoms started prior to a bowel resection over a year ago. Immediately after the bowel resection for diverticulitis, the symptoms got better for about a few weeks and then started to recur again. The symptoms are a dull ache that are exacerbated by lateral bending and flexion in particular. But while those symptoms are exacerbated by those movements, they are present allthe time. They are not related to any dietary changes but do seem to be related to muscle movement.She reports the pain level is anywhere from 5-8 on a scale of 10. She is here today to review this to see if there might be something that I did be done for this. She pushes through and performs all her activities of daily living but does find that this is bothersome. She also has some left-sided posterior tingling but no pain on the left side of her low back. She is going to physical therapy which was not helpful. She is tried Lyrica and gabapentin which unfortunately she did not tolerate and had side effects and she is tried a lidocaine patch which was ineffective. Updated interval history 10/23/2022: I had a telehealth follow-up with Josselyn today. [place] and during [place]. She had a cluneal nerve injection done by . Dr. Blanco on 10/09/2022. I had ordered a transforaminal injection at L3-[address] Blanco felt that that was not going to target her symptoms and felt that she may have a cluneal nerve impingement and so did the cluneal nerve injection. Unfortunately it did not help her at all. She continues to have pain starting in the right side radiating predominantly to the lower abdomen or very low abdomen. It is worse with rotation, lateral bending and flexion and better with sitting. She has a transforaminal protrusion at L2-3 which I believe may be impacting her symptoms. I have talked her about repeating the injection but this time doing a transfora sujey at the right at L2-3. The patient is interested in proceeding with that since this other injection did not help her at all. Updated interval history 11/29/2022: I am following up with Josselyn. She drove down from [facility] with her . She had a steroid injection done by Dr. Davis on the , 8 days ago and reports that she is not having any resolution of her symptoms. She has a L2- 3 right-sided foraminal disc and the first time that Dr. Davisattempted the injection he feels that he got too close to the vascular structures and aborted the procedure. The second procedure was just done and he felt that he had good spread but the patient is not noticing any change in her symptoms. She denies any problems with her bowels or bladder or any fevers chills or sweats. She notices that her symptoms are bad with certain physical maneuvers such as leaning to the side. She has been doing physical therapy at [facility] but has not had any spine, Ángel PT. Updated interval history 12/14/2022: Josselyn is here for follow-up with her . She had a procedure done with Dr. Davis on 12/11. This was a lumbar medial branch block. She reports that she did not have a good response with this andactually felt worse afterwards. However yesterday she [facility], Giovanna Moncada and Giovanna has been doing lateral glides with her and she has had a 50% reduction in her pain. The pain usually starts in her low back and wraps around to the right abdomen. She has had various injections and none of that has been helpful but she has had good relief with Ms. Israel. She and I have also discussed a trial of low-dose naltrexone after her asked if there was anything else that might be helpful for her. She is interested in trialing this as well Updated interval history for 03/14/2023: Josselyn is here with her very supportive . Interestingly, the last time we talked they were telling me about their dog who had been told he had a mass andwas going to . He is interested in the seen by a new that who sent his x-rays to a radiologist and now it appears after doing some testing that he has [place]'s disease rather than a cancer so they are very pleased. Josselyn continues to have this right-sided low back and abdominal pain. She has had a number of different procedures none of which have helped her. She has been doing physical therapy which has resulted in a reduction of 50% in her pain but it seems to be slowing down and she is alittle frustrated however she is still experiencing a benefit in working with a physical therapist at [facility]. In addition, she started taking some low-dose naltrexone. She is uncertain as to whether or not that is helping her and so after discussion we decided to increase it another1.5 mg. I discussed with her that the if the medication is not going to be like ibuprofen or opiate that will she will feel the immediate response but more like a blood pressure medication where overtime she may note a gradual response. We reviewed her other medications and she is already taking gabapentinand pregabalin in the past which were not helpful and she currently takes Effexor and so noduloxetine would not really be an option. I did also talk to her a bit about the functional restorat ion program which she might be interested in and we also talked a bit about a [employer] peripheral nerve stimulator however since none of her procedures have helped her I think it is less likely that this would help her and I do not really want to expose her to any other risk if its not likely to help. Updated interval history 07/17/24: Josselyn was diagnosed with breast cancer this year. She has tolerated treatment of radiation and lumpectomy, but she has not been exercising as regularly. She still goes to the gym to exercise as tolerated. She would like to follow again with Ariana for PT. Josselyn continues to take naltrexone. She takes 6 mg of it daily with appropriate response. She has been taking methocarbamol 120 mg for a tweak in her back. She was referred back to Ariana Brock for her [facility] admission, and she did very well. 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 estradioL (ESTRACE) 0.01 % (0.1 mg/gram) Cream Place 2 g vaginally daily. 42.5 g 3 [DISCONTINUED] Naltrexone, Bulk, 100 % Powder Take 6mgs [...] daily. HERBAL DRUGS ORAL Take by mouth. [place] Wort, lemon balm, passiflora, leonorus, hypericum ACETAMINOPHEN ORAL Take 2 tablets by mouth as needed. lisinopriL (Zestril) 10 mg Tablet omeprazole (PriLOSEC) 20 mg Capsule, Delayed Release(E.C.) simvastatin (Zocor) 20 mg Tablet nightly. 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 Stage I breast cancer, right C50.911 Osteopenia of neck of femur M85.859 skilled nursing current use of aromatase inhibitor Z79.811 Social History: Social History Socioeconomic History Marital status: Spouse name: Casey Number of children: 1 Years of education: Not on file Highest education level: Not on file Occupational History 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 [place] Tobacco Use Smoking status: Former Current packs/day: 0.00 Average packs/day: 2.0 packs/day for 15.0 years (30.0 ttl pk-yrs) Types: Cigarettes Start date: 11/11/1973 Quit date: 11/11/1988 Years since quittin.7 Smokeless tobacco: Never Tobacco comments: 10-15 years quit 35 years ago Vaping Use Vaping status: Never Used Substance and Sexual Activity Alcohol use: Not Currently Comment: Recovering 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 Drug use: Never Sexual activity: Not on file Other Topics Concern Not on file Social History Narrative Not on file Social Determinants of Health Financial Resource Strain: Low Risk (10/28/2023) Overall Financial Resource Strain (CARDIA) Difficulty of Paying Living Expenses: Not hard at all Food Insecurity: No Food Insecurity (10/28/2023) Hunger Vital Sign Worried About Running Out of Food in the Last Year: Never true Ran Out of Food in the Last Year: Never true Transportation Needs: No Transportation Needs (10/28/2023) PRAPARE - Transportation Lack of Transportation (Medical): No Lack of Transportation (Non-Medical): No Physical Activity: Not on file Intimate Partner Violence: Not on file Housing Stability: Low Risk (10/28/2023) Housing Stability Vital Sign Unable to Pay for Housing in the Last Year: No Number of Places Lived in the Last Year: 1 Unstable Housing in the Last Year: No Family History No family history on file. Past Medical History: Past Medical History: Diagnosis Date Breast cancer HTN (hypertension) Past Surgical History: Past Surgical History: Procedure Laterality Date COLECTOMY 2020 MASTECTOMY, PARTIAL Right PRO INJ, FORAMEN, L/S, 1 LEVEL Right 10/09/2022 INJECTION, ANESTHETIC AGENT AND/OR STEROID, TRANSFORAMINAL EPIDURAL, LUMBAR OR SACRAL, SINGLE LEVEL(WRVU 1.9) performed by Cosmo Blanco MD at [facility] PAIN MGMT MSO PRO INJ, FORAMEN, L/S, 1 LEVEL Right 11/09/2022 INJECTION, ANESTHETIC AGENT AND/OR STEROID, TRANSFORAMINAL EPIDURAL, LUMBAR OR SACRAL, SINGLE LEVEL(WRVU 1.9) performed by Jose Tai MD at [facility] PAIN MGMT MSO PRO INJ, FORAMEN, L/S, ADDL LEVELS Right 10/09/2022 INJECTION, ANESTHETIC AGENT AND/OR STEROID, TRANSFORAMINAL EPIDURAL, LUMBAR OR SACRAL, EACH ADDITIONAL LEVEL (WRVU 1) performed by Cosmo Blanco MD at [facility] PAIN MGMT MSO PRO INJECTION DX/THER SBST INTRLMNR LMBR/SAC W/IMG GDN Right 11/21/2022 INJECTION, EPIDURAL, LUMBAR OR SACRAL (CAUDAL), WITH IMAGING GUIDANCE (WRVU 1.8) performed by Jose Tai MD at [facility] PAIN [facility] MSO PRO INJECTION PV FACET JOINT LUMBAR/SACRAL SINGLE LEVEL Right 12/11/2022 INJECTION, FACET JOINT, W\FLUORO, LUMBAR, SINGLE (WRVU 1.52) performed by Jose Tai MD at [facility] PA[facility] MSO XR FLUORO INJECTION DRAINAGE JOINT LG LEFT Left 04/24/2024 XR Fluoro Guided Joint Injection Large Left 04/24/2024 Luba Spear PA [facility] RAD XRAY Review of Systems: Denies fever, chills, weight loss, SOB, abdominal pain, leg weakness/numbnes, arm weakness/numbness, bowel or bladder incontinence, balance issues + minimal stress incontinence ( former sling) RISK ASSESSMENT: Smoking:no former smoker quit 35 years ago 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 Inspection: good alignment, no excessive curvature, shoulder and hip levels equal bilaterally; no skin breakdown ROM: Pain is exacerbated by twisting movements, lateral bending to the ipsilateral and contralateral sides. There is no sensory change, she has normal strength, sensation, reflexes in the lower extremities. Not repeated today this was from previous visit Imaging & Other Studies: Images of the lumbar spine were reviewed with her and a copy of the report was photocopied and willbe placed in her chart. In short, there is multilevel degenerative changes with foraminal stenosis on the right at L2-3 which is consistent with her symptoms. She also has some facet arthropathy present This was reviewed at a previous visit Assessment: Ms. Garduno is a 79 y.o. year-old female who is here for follow-up. We discussed increasing the low-dose naltrexone to 6 mg. I have given her TODD Reddy phone number to discuss how many visit she can get from physical therapy from her Medicare program as well as the functional restorationprogram. We are going to follow-up in 4 to 6 weeks and see if the physical therapy and the low-dosenaltrexone changes have made a difference. I am also been asked someone to let the physical therapist know that we need her most recent notes as I do not have any since early January. Plan/Recommendations: We reviewed etiology, predisposing factor(s), natural course, imaging results as well as treatment options including medications, physical therapy/exercise, therapeutic injections, and surgery. The risks, consequences, alternatives, and benefits of various treatment options were discussed with the patient in great detail. We have discussed and recommended the following: - Medications: No new prescription at this time. Patient will continue current medications. Refill for methocarbamol and LDN ordered today. - Imaging: No new imaging is indicated at this time. - Physical therapy/modalities/DME: Referral to Ariana sent for review of FRP program p[mari and recommendations . - Interventional/Surgical procedures: None indicated at this time. - Referrals: No additional referrals at this time. - Activity: Continue activity as tolerated. - - Follow-up: 1 year Josselyn has called us back and let us know that she would like to participate in the functional rastafarian program hopefully May and so I would place a order for a gap assessment for her. Thank you for allowing my participation in Josselyn Garduno's care. Jazmín Santiago, MS, PATIENT INSURANCE CLERK-BC, BRICKLAYER APPRENTICE Nurse practitioner Pain management [facility] I, Lorna Josue, have performed the documentation for this encounter in the presence ofand acting as a scribe for Jazmín Santiago APRN. documented in this encounter Plan of Treatment Upcoming Encounters Date Type Department Care Team (Late st Contact Info) Description 09/18/2024 10:30 AM EST Office Visit Hematology/Oncology at [address] [phone] Erica Yi APRN [address] [place] [address] MEDICAL ONCOLOGY [place], [place] [address] 09/18/2024 11:00 AM EST Infusion Hematology Oncology at [address] [phone] 10/01/2024 3:45 PM EST Office Visit Functional [facility] Program at [place] [address] [place] [phone] Gene Julien Jr., PT 12/23/2024 8:00 AM EST Appointment XRay at [address] [place] [phone] River Ochoa MD [address] [place] [address] 01/21/2025 1:00 PM EDT Office Visit Radiation Oncology at [address] [phone] Tory Salazar PA [facility] [place] [address] Scheduled Referrals Name Type Priority Associated Diagnoses Orde r Schedule Referral to Pain and Spine Center (Internal only) Outpatient Referral Routine Lumbar spondylosis Ordered: 07/17/2024 documented as of this encounter Visit Diagnoses Diagnosis Lumbar spondylosis- Primary Lumbosacral spondylosis without myelopathy documented in this encounter Care Teams Control Center Operator Relationship Specialty Start Date End Date Kay Caldwell MD [address] [place] [address] [address] [place] [address] PCP - General Family Medicine 08/15/22 documented as of this encounter
--- OUTSIDE RECORDS SUMMARY | 2024-09-18 01:16 | XMS_ITS | Encounter Summary ---
[place] [address] Care Team Providers Care Gluten Settling Tender Name Role Phone Kay Caldwell MD Primary Care Provider [phone] Reason for Visit * Reason Onset Date Comments New Medication Request 06/10/2024 LDN scrip t request Encounter Details Date Type Department Care Team (Late st Contact Info) Description 06/10/2024 Telephone [facility] [place] [phone] Angeles Arteaga RN New Medication Request (LDN script request) Social History Tobacco Use Types Packs/Day Years Used Date Smoking Tobacco: Former Cigarettes 2 15 0 11/11/1973 - 11/11/1988 Smokeless Tobacco: Never Comments:10-15 years quit 35 years ago Alcohol Use Standard Drinks/Week Comments Not Currently 0 (1 standard drink = 0.6 oz pur e alcohol) 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 documented in this encounter Plan of Treatment Upcoming Encounters Date Type Department Care Team (Late st Contact Info) Description 09/18/2024 10:30 AM EST Office Visit Hematology/Oncology at [address] [phone] Erica Yi APRN [address] [place] [address] [place] [address] 09/18/2024 11:00 AM EST Infusion Hematology Oncology at [address] [phone] 10/01/2024 3:45 PM EST Office Visit Functional Pentecostalism Program at [facility] [address] [place] [address] Gene Julien Jr., PT 12/23/2024 8:00 AM EST Appointment XRay at [address] [place] [address] River Ochoa MD [address] [place] [address] 01/21/2025 1:00 PM EDT Office Visit Radiation Oncology at [address] [phone] Tory Salazar PA [facility] DR HEMATOLOGY AND [place] [address] documented as of this encounter Visit Diagnoses Not on filedocumented in this encounter Care Teams Gluten Settling Tender Relationship Specialty Start Date End Date Kay Caldwell MD [address] [place] [address] [address] [place] [address] PCP - General Family Medicine 08/15/22 documented as of this encounter
--- OUTSIDE RECORDS SUMMARY | 2024-09-18 01:16 | XMS_ITS | Encounter Summary ---
Author Organization [facility] [place] [address] Care Team Providers Care Ostrich Farm Worker Name Role Phone Kay Caldwell MD Primary Care Provider [phone] Encounter Details Date Type Department Care Team (Latest Contact Info) Description 07/17/2024 Travel Social History Tobacco Use Types Packs/Day Years Used Date Smoking Tobacco: Former Cigarettes 2 15 0 11/11/1973 - 11/11/1988 Smokeless Tobacco: Never Comments:10-15 years quit 35 years ago Alcohol Use Standard Drinks/Week Comments Not Currently 0 (1 standard drink = 0.6 oz pur e alcohol) Recovering 41 years [facility] Utilities Answer Date Recorded [...] place to sleep or slept in a prison (including now)? No 10/28/2023 Sex and Gender Information Value Date Recorded Sex Assigned at Not on file Gender Identity Not on file Sexual Orientation Not on file documented as of this encounter Plan of Treatment Upcoming Encounters Date Type Department Care Team (Late st Contact Info) Description 09/18/2024 10:30 AM EST Office Visit Hematology/Oncology at [address] [phone] Erica Yi APRN [address] [place] [address] DR MEDICAL ONCOLOGY [place], [place] [id number] 09/18/2024 11:00 AM EST Infusion Hematology Oncology at [address] [phone] 10/01/2024 3:45 PM EST Office Visit Functional Christian Program at [facility] [address] [place] [address] Gene Julien Jr., PT 12/23/2024 8:00 AM EST Appointment XRay at [address] [place] [address] River Ochoa MD [address] [place], [place] [address] 01/21/2025 1:00 PM EDT Office Visit Radiation Oncology at [address] [phone] Tory Salazar PA [facility] DR [place] [address] documented as of this encounter Visit Diagnoses Not on filedocumented in this encounter Care Teams Ostrich Farm Worker Relationship Specialty Start Date End Date Kay Caldwell MD [address] [place] [address] PCP - General Family Medicine 08/15/22 documented as of this encounter
--- OUTSIDE RECORDS SUMMARY | 2024-09-18 01:16 | XMS_ITS | Encounter Summary ---
Author Organization [facility] [place] [address] Care Team Providers Care Industrial Pharmacist Name Role Phone Kay Caldwell MD Primary Care Provider [phone] Reason for Referral * Physical Therapy (Routine) - Authorized Specialty Diagnoses / Procedures Referred By Charli hardy Referred To Contact [facility] Diagnoses Left shoulder pain, unspecified chronicity Jazmín Santiago APRN [facility] [place] [address] Gene Julien Jr., PT Referral ID Status Reason Start Date Expiration Date Visits Requested Visits Authorized [id number] Authorized Evaluate and Treat 07/24/2024 07/24/2025 12 12 Encounter Details Date Type Department Care Team (Late st Contact Info) Description 07/24/2024 Orders Only [facility] [place] [address] Jazmín Santiago APRN [facility] [place] [address] Left shoulder pain, unspecified chronicity (Primary Dx) Social History Tobacco Use Types Packs/Day Years Used Date Smoking Tobacco: Former Cigarettes 2 15 0 11/11/1973 - 11/11/1988 Smokeless Tobacco: Never Comments:10-15 years quit 35 years ago Alcohol Use Standard Drinks/Week Comments Not Currently 0 (1 standard drink = 0.6 oz pur e alcohol) Recovering 41 years [facility] Utilities Answer Date Recorded In [...] place to sleep or slept in a detention (including now)? No 10/28/2023 Sex and Gender Information Value Date Recorded Sex Assigned at Not on file Gender Identity Not on file Sexual Orientation Not on file documented as of this encounter Plan of Treatment Upcoming Encounters Date Type Department Care Team (Late st Contact Info) Description 09/18/2024 10:30 AM EST Office Visit Hematology/Oncology at [address] [phone] Erica Yi APRN [address] [place] [address] DR MEDICAL ONCOLOGY [place], [place] [id number] 09/18/2024 11:00 AM EST Infusion Hematology Oncology at [address] [phone] 10/01/2024 3:45 PM EST Office Visit Functional Islam Program at [facility] [address] [place] [address] Gene Julien , PT 12/23/2024 8:00 AM EST Appointment XRay at [address] [place] [address] Rievr Ochoa MD [address] [place] [address] 01/21/2025 1:00 PM EDT Office Visit Radiation Oncology at [address] [phone] Tory Salazar PA [facility] HEMATOLOGY [place] [address] Scheduled Referrals Name Type Priority Associated Diagnoses Orde r Schedule Referral to Physical Therapy Outpatient Referral Routine Left shoulder pain, unspecified chronicity Ordered: 07/24/2024 documented as of this encounter Visit Diagnoses Diagnosis Left shoulder pain, unspecified chronicity- Primary documented in this encounter Care Teams Industrial Pharmacist Relationship Specialty Start Date End Date Kay Caldwell MD [address] [place] [address] [address] [place] [address] PCP - General Family Medicine 08/15/22 documented as of this encounter
--- OUTSIDE RECORDS SUMMARY | 2024-09-18 01:17 | XMS_ITS | Encounter Summary ---
Author Organization [place] [address] Care Team Providers Care Trench Pipe Layer Helper Name Role Phone Kay Caldwell MD Primary Care Provider [phone] Reason for Visit * Reason Onset Date Comments Other 12/30/2023 Side effects fos amax Encounter Details Date Type Department Care Team (Late st Contact Info) Description 12/30/2023 Telephone Hematology/Oncology at [address] [phone] Pattie Villar RN Other (Side effects fosamax) Social History Tobacco Use Types Packs/Day Years Used Date Smoking Tobacco: Former Cigarettes 2 15 0 11/11/1973 - 11/11/1988 Smokeless Tobacco: Never Comments:10-15 years quit 35 years ago Alcohol Use Standard Drinks/Week Comments Not Currently 0 (1 standard drink = 0.6 oz pur e alcohol) Recovering 41 years [facility] Utilities Answer Date Recorded In the past 12 months has [employer], gas, oil, or water [employer] threatened to shut off services in your [...] place to sleep or slept in a jail (including now)? No 10/28/2023 Sex and Gender Information Value Date Recorded Sex Assigned at Not on file Gender Identity Not on file Sexual Orientation Not on file documented as of this encounter Miscellaneous Notes * Telephone Encounter - Pattie Villar RN - 12/30/2023 1:20 PM EST Pt calls and states she is having issues with her fosamax she took on Saturday. That night she got stomach pains and then next day she had gas and loose stools that took a few days to go away. Dr. Fowler updated and she will call pt tomorrow to review her options. documented in this encounter Plan of Treatment Upcoming Encounters Date Type Department Care Team (Late st Contact Info) Description 09/18/2024 10:30 AM EST Office Visit Hematology/Oncology at [address] [phone] Erica Yi APRN [address] [place] [address] [place] [address] 09/18/2024 11:00 AM EST Infusion Hematology Oncology at [address] [phone] 10/01/2024 3:45 PM EST Office Visit Functional Buddhism Program at [facility] [address] [place] [address] Gene Julien Jr., PT 12/23/2024 8:00 AM EST Appointment XRay at [address] [place] [address] River Ochoa MD [address] [place] [address] 01/21/2025 1:00 PM EDT Office Visit Radiation Oncology at [address] [phone] Tory Salazar PA [facility] HEMATOLOGY [place] [address] documented as of this encounter Visit Diagnoses Not on filedocumented in this encounter Care Teams Trench Pipe Layer Helper Relationship Specialty Start Date End Date Kay Caldwell MD [address] [place] [address] [address] [place], [place] [address] PCP - General Family Medicine 08/15/22 documented as of this encounter
--- OUTSIDE RECORDS SUMMARY | 2024-09-18 01:17 | XMS_ITS | Encounter Summary ---
[place] [address] Care Team Providers Care Email Marketing Executive Name Role Phone Kay Caldwell MD Primary Care Provider [phone] Encounter Details Date Type Department Care Team (Late st Contact Info) Description 12/31/2023 Orders Only Hematology [place] [phone] Nichole Fowler MD Social History Tobacco Use Types Packs/Day Years Used Date Smoking Tobacco: Former Cigarettes 2 15 0 11/11/1973 - 11/11/1988 Smokeless Tobacco: Never Comments:10-15 years quit 35 years ago Alcohol Use Standard Drinks/Week Comments Not Currently 0 (1 standard drink = 0.6 oz pur e alcohol) Recovering 41 years [facility] Utilities Answer Date Recorded In the past 12 months has e electric, gas, oil, or water company [...] place to sleep or slept in a nursing home (including now)? No 10/28/2023 Sex and Gender Information Value Date Recorded Sex Assigned at Not on file Gender Identity Not on file Sexual Orientation Not on file documented as of this encounter Plan of Treatment Upcoming Encounters Date Type Department Care Team (Late st Contact Info) Description 09/18/2024 10:30 AM EST Office Visit Hematology/Oncology at [address] [phone] Erica Yi [address] MEDICAL ONCOLOGY [place], [place] [phone] 09/18/2024 11:00 AM EST Infusion Hematology Oncology at [address] [phone] 10/01/2024 3:45 PM EST Office Visit Functional Gnosticist Program at [facility] [address] [place] [address] Gene Julien Jr., PT 12/23/2024 8:00 AM EST Appointment XRay at [address] [place] [phone] River Ochoa MD [address] [place], [place] [address] 01/21/2025 1:00 PM EDT Office Visit Radiation Oncology at [address] [phone] Tory Salazar PA [facility] DR HEMATOLOGY [place] [address] documented as of this encounter Visit Diagnoses Not on filedocumented in this encounter Care Teams Email Marketing Executive Relationship Specialty Start Date End Date Kay Caldwell MD [address] [place] [address] [address] [place] [address] PCP - General Family Medicine 08/15/22 documented as of this encounter
--- OUTSIDE RECORDS SUMMARY | 2024-09-18 01:17 | XMS_ITS | Encounter Summary ---
[place] [address] Care Team Providers Care Resp Ther Name Role Phone Kay Caldwell MD Primary Care Provider [phone] Reason for Referral * Consultation (Priority 1) - Closed Specialty Diagnoses / Procedures Referred By Charli hardy Referred To Contact Hematology and Oncology Diagnoses Stage I breast cancer in female Family history of breast cancer Nichole Fowler MD [facility] MEDICAL ONCOLOGY [address] Hem Onc [address] [place] [phone] Referral ID Status Reason Start Date Expiration Date V isits Requested Visits Authorized [id number] Closed Consult, Test & Treat 12/29/2023 12/28/2024 1 1 Reason for Visit * Consultation (Routine) - Authorized Specialty Diagnoses / Procedures Referred By Charli hardy Referred To Contact Hematology and Oncology Diagnoses Malignant neoplasm of right female breast, unspecified estrogen receptor status, unspecified site of breast Dmitri Schultz MD [address] [place] [phone] [facility] [address] [place] [phone] Referral ID Status Reason Start Date Expiration Date Visits Requested Visits Authorized [id number] Authorized Consult, Test & Treat PCP Updated and/or Approved 3 11/05/2024 6 6 Encounter Details Date Type Department Care Team (Late st Contact Info) Description 12/17/2023 1:30 PM EST Office Visit Hematology/Oncology at [address] [phone] Nichole Fowler MD Stage I breast cancer in female; Family history of breast cancer Social History Tobacco Use Types Packs/Day Years [...] place to sleep or slept in a retirement (including now)? No 10/28/2023 Sex and Gender Information Value Date Recorded Sex Assigned at Not on file Gender Identity Not on file Sexual Orientation Not on file documented as of this encounter Last Filed Vital Signs Vital Sign Reading Time Taken Comments Blood Pressure 143/51 12/17/2023 1:19 PM EST Pulse 67 12/17/2023 1:19 PM EST Temperature 36.5 ??C (97.7 ??F) 12/17/2023 1:19 PM ES T Respiratory Rate 16 12/17/2023 1:19 PM EST Oxygen Saturation 100% 12/17/2023 1:19 PM EST Inhaled Oxygen Concentration - - Weight 89.8 kg (198 lb) 12/17/2023 1:19 PM EST Height 159 cm (5' 2.6) 12/17/2023 1:19 PM EST Body Mass Index 35.53 12/17/2023 1:19 PM EST documented in this encounter Progress Notes * Nichole Fowler MD - 12/17/2023 1:30 PM EST Images from the original note were not included. [facility] Patient Name: Josselyn Garduno : 1945 Visit Date: 12/29/2023 PCP: Kay Caldwell MD Breast surgical oncology: Dmitri Schultz MD ([facility]) Radiation oncology: Monique Grijalva MD Reason for visit: Scheduled follow-up for stage I (pT1c pN0) Right breast cancer - ER+ NE+ HER2 - DIAGNOSIS: Stage I (pT1c pN0) Right breast cancer - ER+ NE+ HER2 - Breast cancer stage: Clinical stage: cT1b,cN0 Pathological stage: pT1c pN0 Type: IDC and DCIS Grade: Intermediate grade Receptor status: ER+ (>90%), NE+ (>90%), HER2 negative (0) Menopausal status: Postmenopausal CURRENT TX: 09/18/23: Right partial mastectomy + SLNB: 10/09/23: re-excision 10/29/23: Stated anastrozole 11/19-12/03/23: RT to the right breast 12/17/23: resuming adjuvant anastrozole ONCOLOGIC HX: 08/01/23: Abnormal screening mammogram: Right [...] Pathology revealing grade II IDC, ER+ (>90%), NE+ (>90%), HER2 negative (0) 09/18/23: Right partial mastectomy + SLNB: grade II, 13 mm, single focus of IDC; DCIS present; SLNB:0/1: positive anterior margin 10/09/23: re-excision 10/29/23: started anastrozole 11/19-12/03/23: RT to the right breast 11/26/2023: Oncotype DX RS: 17 HPI: Mrs. Josselyn Garduno is a 78 y.o. female with PMHx significant for but not limited to HTN, bilateral knee replacement 2/2 OA, chronic low back pain 2/2 lumbar canal stenosis and recent diagnosis ofstage I ER positive, NE positive, HER2 negative right breast cancer s/p right partial mastectomy + SLNB on 10/02/2023, reexcision on 10/09/2023, started on adjuvant anastrozole on 10/29/23; Oncotype DX RS= 7; completed adjuvant RT to the right breast (11/19- 12/03/23); who presents today for scheduled follow up. Josselyn is here today with her Luis Manuel, Interval history: #Monitoring treatment related side effects: #hot flashes: Josselyn is endorsing hot flashes that are intermittent and short- lived. She has described them as not bothersome #Arthralgia: Josselyn endorsed baseline arthralgia affecting her thumbs and elbows. She also has bilateral knee replacements. She endorsed that anastrozole has not worsened her pre-existing arthralgias. #H/O chronic neck and low back pain in context of cervical and lumbar canal stenosis: Stable #Vaginal dryness: Stable vaginal dryness, not worsening, and no recurrent UTIs #Fatigue: Josselyn endorsed good energy levels #Monitoring compliance with/adherence to treatment: Josselyn endorsed starting anastrozole on 10/29/2023, with interruption during radiation therapy as previously discussed to mitigate compilation of side effects. She has otherwise not missed any doses.She will resume anastrozole today #ROS: #no new headaches or bone aches #Breast concerns: Josselyn endorsed darker/erythematous skin s/p RT. She also endorsed that it somewhat itching but otherwise no breast concerns #Risk factors: History Oral contraceptive use 10 yrs Menarche age 13 yrs old LMP is s/p hysterectomy Personal history of hormone replacement therapy 10-15 yrs (in context of vaginal dryness) Family history of breast cancer Maternal aunts: breast cancer Family history of ovarian cancer Doesn't know Family history of prostate cancer Doesn't know Ashkenazi Nondenominational heritage No Personal history of known genetic mutation Yes (requesting report) Review of Symptoms: As per HPI, all other systems were reviewed and are negative. Review of Systems Constitutional: Negative for appetite change, chills, diaphoresis and unexpected weight change. HENT: Negative for lump/mass. Eyes: Negative for eye problems. Respiratory: Negative for chest tightness, cough and shortness of breath. Cardiovascular: Negative for chest pain, leg swelling and palpitations. Gastrointestinal: Negative for abdominal distention, abdominal pain, constipation, diarrhea, nauseaand vomiting. Endocrine: Positive for hot flashes. Genitourinary: Negative for difficulty urinating and dysuria. Musculoskeletal: Positive for arthralgias, back pain and neck pain. Negative for flank pain, gait problem, myalgias and neck stiffness. Skin: Negative for rash. Neurological: Negative for dizziness, extremity weakness, gait problem, headaches, light-headedness, numbness, seizures and speech difficulty. Hematological: Negative for adenopathy. Allergies: Allergies as of 12/17/2023 - Review Complete 12/17/2023 Allergen Reaction Noted Opioids - morphine analogues Nausea And Vomiting 10/09/2022 Medical History: Past Medical History: Diagnosis Date Breast cancer HTN (hypertension) Current Medications: Current Outpatient Medications Medication Sig Note diphenhydrAMINE-acetaminophen (TYLENOL PM) 25-500 mg Tablet Take [...] (Effexor) 25 mg Tablet 37.5 mg daily. Naltrexone, Bulk, 100 % Powder Take 4.5 mg by mouth daily (Patient taking differently: Take 6 mg bymouth daily) multivitamin (THERAGRAN) Tablet Take 1 tablet by mouth daily. HERBAL DRUGS ORAL Take by mouth. Hendry Wort, lemon balm, passiflora, leonorus, hypericum 12/03/2023: Plans to restart tomorrow ACETAMINOPHEN ORAL Take 2 tablets by mouth as needed. lisinopriL (Zestril) 10 mg Tablet omeprazole (PriLOSEC) 20 mg Capsule, Delayed Release(E.C.) simvastatin (Zocor) 20 mg Tablet nightly. alendronate (Fosamax) 70 mg tablet Take 1 tablet by mouth every 7 days. Take in AM with full glass of water, on an empty stomach. Do not lie down for 30 min. Take 1 tablet once a week. This is NOT a daily medication. Surgical History: Past Surgical History: Procedure Laterality Date COLECTOMY 2020 MASTECTOMY, PARTIAL Right PRO INJ, FORAMEN, L/S, 1 LEVEL Right 10/09/2022 INJECTION, ANESTHETIC AGENT AND/OR STEROID, TRANSFORAMINAL EPIDURAL, LUMBAR OR SACRAL, SINGLE LEVEL(WRVU 1.9) performed by Cosmo Blanco MD at [facility] PAIN MGMT MSO PRO INJ, FORAMEN, L/S, 1 LEVEL Right 11/09/2022 INJECTION, ANESTHETIC AGENT AND/OR STEROID, TRANSFORAMINAL EPIDURAL, LUMBAR OR SACRAL, SINGLE LEVEL(WRVU 1.9) performed by Jose Tai MD at [facility] PAIN MGMT MSO PRO INJ, FORAMEN, L/S, ADDL LEVELS Right 10/09/2022 INJECTION, ANESTHETIC AGENT AND/OR STEROID, TRANSFORAMINAL EPIDURAL, LUMBAR OR SACRAL, EACH ADDITIONAL LEVEL (WRVU 1) performed by Cosmo Blanco MD at [facility] PA[facility] MSO PRO INJECTION DX/THER SBST INTRLMNR LMBR/SAC W/IMG GDN Right 11/21/2022 INJECTION, EPIDURAL, LUMBAR OR SACRAL (CAUDAL), WITH IMAGING GUIDANCE (WRVU 1.8) performed by Jose Tai MD at [facility] PA[facility]MT MSO PRO INJECTION PV FACET JOINT LUMBAR/SACRAL SINGLE LEVEL Right 12/11/2022 INJECTION, FACET JOINT, W\FLUORO, LUMBAR, SINGLE (WRVU 1.52) performed by Jose Tai MD at [facility] PAIN [facility]MT MSO Family History: Family History No data available Josselyn endorsed family history of breast cancer in her maternal aunts. She is not aware of family history of ovarian/GI/prostate cancer Genetics: No genetic testing on file, will refer for genetic testing at [facility] Social History: Josselyn reports that she quit smoking about 35 years ago. Her smoking use included cigarettes. She has a 30.00 pack-year smoking history. She has never used smokeless tobacco. She reports that she does not currently use alcohol. She reports that she does not use drugs. Physical Exam: Vital signs and weight : Wt Readings from Last 3 Encounters: 12/17/23 89.8 kg (198 lb) 12/03/23 91.3 kg (201 lb 3.2 oz) 11/26/23 87.5 kg (192 lb 12.8 oz) Temp Readings from Last 3 Encounters: 12/17/23 36.5 ??C (97.7 ??F) (Temporal) 12/03/23 36.7 ??C (98.1 ??F) (Temporal) 11/26/23 36.8 ??C (98.2 ??F) BP Readings from Last 3 Encounters: 12/17/23 143/51 12/03/23 144/68 11/26/23 159/70 Pulse Readings from Last 3 Encounters: 12/17/23 67 12/03/23 73 11/26/23 66 -- Pain score: 0 Cancer Distress Responses: 10/28/2023 2:50 PM Cancer Distress Distress 1 ECOG PS: 0 Gen: alert and oriented x 3 HEENT: normocephalic, atraumatic, sclerae anicteric, oropharynx clear, moist mucous membranes Neck: supple, non-tender. No thyromegaly. Breast exam: Patient provided verbal consent for breast exam Right breast: Skin: Mild erythema, otherwise no rash, no palpable breast masses/lumps; nipple: normal position and everted , no spontaneous discharge Right axilla: No palpable lymphadenopathy Left breast: Skin:no rash or erythema, no palpable breast masses/lumps, nipple: normal position, everted, no spontaneous discharge Left axilla: No palpable lymphadenopathy [...] axillary or inguinal lymphadenopathy Spine palpation: No tenderness noted Labs: None discussed today Breast Imaging: Screening mammogram: not on file / not scanned Diagnostic mammogram and U/S: 08/09/2023 Pathology: Biopsy - Pathology : 08/09/2023 Breast, [...] Pathology Report Surgical Pathology Report Collected: 09/18/23 7854 Result status: Final Resulting lab: [facility] Value: [id number] Location: [facility] The signing pathologist has (i) [...] with cautery artifact. G - Right Axillary [place] Lymph Node - - One benign node, (0/1). Note - The cauterized glands can not be further interpreted. Step sections were examined (F). Electronically signed by: Monica Schmitz DO Verified: 09/28/2023 18:27 Pathologist Performed at: -[facility] Dept. of Pathology, [place] [address] Keg Raiser: Quique Thompson MD, FCAP, CLIA Certificate: [id number] SYNOPTIC Specimen Procedure: Excision (less than total [...] Examined (sentinel and non-sentinel): 1 Number of [place] Nodes Examined: 1 pTNM Classification (AJCC 8th Edition) pT Category: pT1c pN Category: pN0 N Suffix: (sn) Re-excision on 10/09/2023 Surgical Pathology Report Surgical Pathology Report Collected: 10/09/23 1415 Result status: Final Resulting lab: [facility] Value: [id number] Location: [facility] The signing pathologist has (i) [...] MD Verified: 10/17/2023 10:09 Pathologist Performed at: -[facility] Dept. of Pathology, [place] [address] Keg Raiser: Quique Thompson MD, FCAP, CLIA Certificate: [id number] SPECIMEN(S) SUBMITTED A - New medial margin - stitch = medial B - Right breast re-excision, superficial/anterior C - Right breast re-excision, superior Referring Identifier: (not provided) Oncotype DX RS: 11/26/2023 Imaging: DEXA scan: 11/14/23 T-score at femoral neck is -1.9; BMD consistent with osteopenia Assessment & Plan: Mrs. Josselyn Garduno is a 78 y.o. female with PMHx significant for but not limited to HTN, bilateral knee replacement 2/2 OA, chronic low back pain 2/2 lumbar canal stenosis and recent diagnosis ofstage I ER positive, NE positive, HER2 negative right breast cancer s/p right partial mastectomy + SLNB on 10/02/2023, reexcision on 10/09/2023, started on adjuvant anastrozole on 10/29/23; Oncotype DX RS= 7; completed adjuvant RT to the right breast (11/19- 12/03/23); who presents today for scheduled follow up. #Stage I RIGHT breast cancer - Clinical stage: cT1b,cN0 - Pathological stage: pT1c,pN0 - Receptor status: ER+ (>90%), NE+ (>90%), HER2 negative (0) - Pathology: Intermediate grade IDC and DCIS - Molecular subtype: Luminal subtype A - Oncotype Dx RS= 7 - Genetics: Genetic testing not available, has referred to [facility] genetics for testing - Staging imaging: We have discussed in length recommendations per NCCN guidelines regarding staging imaging for StageI breast cancer and that labs and imaging are recommended/indicated in context of symptoms and signs concerning for metastatic disease. Given that Josselyn isn't endorsing symptoms or signs of disease p rogression at this time, will continue to closely monitor. - Treatment: 09/18/23: Right partial mastectomy + SLNB: 10/09/23: re-excision 10/29/23: Stated anastrozole 11/19-12/03/23: RT to the right breast 12/17/23: resuming adjuvant anastrozole We have revisited the discussion today regarding the role of endocrine therapy (Aromatase inhibitors) in management of early stage breast cancer; and that endocrine therapy was shown to reduce the risk of systemic recurrence and among women with hormone receptor positive breast cancer regardless of age, menopausal status, eugene involvement, tumor size, HER2 status, and use of chemotherapy. Recommended duration of therapy is at least 5 years We have re-reviewed significant side effects of AI therapy that includes but not limited to arthralgia, hot flashes, osteopenia/osteoporosis, and risk of worsening pre-existing HTN/CAD. We have discussed that anastrozole is an oral medication taken once daily. The dose is 1 mg/day. Josselyn has tolerated anastrozole well prior to radiation therapy and is willing to resume today. We have discussed the results of her Oncotype DX RS; which is equal 7 denoting no additional benefit of chemotherapy [<1%] Bone health: -We have discussed DEXA scan on 11/14/2023 which revealed osteopenia at the femoral neck T-score -1.9 - We have discussed data regarding adjuvant bisphosphonate therapy. The ROGER trial showed no overall effect of zoledronic acid on invasive DFS among patients with stage II or III disease who received chemotherapy. However zoledronic acid was shown to reduce the development of bone metastasis and improved invasive DFS in women who are postmenopausal for at least 5 years before enrollment. In ABCSG-12 trial: use of zoledronic acid was associated with a 36% reduction in risk of disease recurrenceamong premenopausal women with stage I or II disease who received ovarian suppression and endocrinetherapy. -A Nabb-analysis of 17 trials demonstrated 3.5% absolute reduction in the risk of distant relapse, predominantly bone metastatic relapse, as well as a 2.3% absolute improvement in or close mortality [OS] among postmenopausal women who received adjuvant bisphosphonates. -Dental clearance: No planned dental workup at this time We have discussed side effects related to bisphosphonate therapy which includes but not limited to esophagitis in context of p.o. alendronate, risk of fracture, and jaw osteonecrosis. We discussed starting alendronate 70 mg once per week, and monitoring for side effects as GERD/heartburn. Josselyn is in agreement -Continue with vitamin D supplementation -DEXA scan in 11/2025 Recommendations/Plan: I have recommended the following: -Will resume anastrozole 1 mg p.o. daily -Will start alendronate 70 mg p.o. once a week and monitor for side effects. Josselyn will let us know of any upcoming dental procedures so that alendronate can be held appropriately. -Continue with calcium and vitamin D -Annual mammogram to be ordered per medical oncology; we discussed that first mammogram should be ordered by surgical oncology within 6 months of definitive surgery Follow-up: MD visit to be scheduled in 3 months or sooner if there are concerns Counseling: Total time spent: 40 minutes with > 50% spend in discussion of above, [id number] time and coordination of care with the patient today Records were reviewed which included imaging ( mammogram, US, MRI, PET/CT, Ultrasounds that were non breast, CTs, ), surgical reports, pathology reports and physician notes. [...] and concerns. Nichole Fowler MD Medical Oncology [facility]ly [facility] Construction Project MgrGuest Services Agent, [facility] [employer] Office Cancer.[facility] documented in this encounter Plan of Treatment Upcoming Encounters Date Type Department Care Team (Late st Contact Info) Description 09/18/2024 10:30 AM EST Office Visit Hematology/Oncology at [address] [phone] Erica Yi APRN [address] [place] [address] MEDICAL ONCOLOGY [place], [place] [id number] 09/18/2024 11:00 AM EST Infusion Hematology Oncology at [address] [phone] 10/01/2024 3:45 PM EST Office Visit Functional [facility]ism Program at [place] [address] [place] [phone] Gene Julien Jr., PT 12/23/2024 8:00 AM EST Appointment XRay at [address] [place] [phone] River Ochoa MD [address] [place], [place] [address] 01/21/2025 1:00 PM EDT Office Visit Radiation Oncology at [address] [phone] Tory Salazar PA [facility] HEMATOLOGY [place] [address] Scheduled Referrals Name Type Priority Associated Diagnoses Orde r Schedule Referral to Genetics Outpatient Referral Routine Stage I breast cancer in female Family history of breast cancer Ordered: 12/29/2023 documented as of this encounter Visit Diagnoses Diagnosis Stage I breast cancer in female Family history of breast cancer Family history of malignant neoplasm of breast documented in this encounter Care Teams Resp Ther Relationship Specialty Start Date End Date Kay Caldwell MD [address] [place] [address] [place] [address] PCP - General Family Medicine 08/15/22 documented as of this encounter
--- OUTSIDE RECORDS SUMMARY | 2024-09-18 01:17 | XMS_ITS | Encounter Summary ---
[place] [address] Care Team Providers Care Firer Portable Boiler Name Role Phone Kay Caldwell MD Primary Care Provider [phone] Reason for Visit * Reason Onset Date Comments Medication Refill 06/10/2024 Encounter Details Date Type Department Care Team (Late st Contact Info) Description 06/10/2024 Refill [facility] [place] [phone] Angeles Arteaga RN Social History Tobacco Use Types Packs/Day Years Used Date Smoking Tobacco: Former Cigarettes 2 15 0 11/11/1973 - 11/11/1988 Smokeless Tobacco: Never Comments:10-15 years quit 35 years ago Alcohol Use Standard Drinks/Week Comments Not Currently 0 (1 standard drink = 0.6 oz pur e alcohol) 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 No 10/28/2023 Sex and Gender Information Value Date Recorded Sex Assigned at Not on file Gender Identity Not on file Sexual Orientation Not on file documented as of this encounter Plan of Treatment Upcoming Encounters Date Type Department Care Team (Late st Contact Info) Description 09/18/2024 10:30 AM EST Office Visit Hematology/Oncology at [address] [phone] Erica Yi APRN [address] [place] [address] DR MEDICAL ONCOLOGY [place], [place] [address] 09/18/2024 11:00 AM EST Infusion Hematology Oncology at [address] [phone] 10/01/2024 3:45 PM EST Office Visit Functional [facility] Program at [facility] [address] [place] [phone] Gene Julien Jr., PT 12/23/2024 8:00 AM EST Appointment XRay at [address] [place] [phone] River Ochoa MD [address] [place] [address] 01/21/2025 1:00 PM EDT Office Visit Radiation Oncology at [address] [phone] Tory Salazar PA [facility] [address] [place] [address] documented as of this encounter Visit Diagnoses Not on filedocumented in this encounter Care Teams Firer Portable Boiler Relationship Specialty Start Date End Date Kay Caldwell MD [address] [place] [address] [place] [address] PCP - General Family Medicine 08/15/22 documented as of this encounter
--- OUTSIDE RECORDS SUMMARY | 2024-09-18 01:17 | XMS_ITS | Encounter Summary ---
[place] [address] Care Team Providers Care Quill Cleaning Machine Operator Name Role Phone Kay Caldwell MD Primary Care Provider +1 [phone] Encounter Details Date Type Department Care Team (Late st Contact Info) Description 03/09/2024 Telephone [place]ematology [place] [address] Nichole Fowler MD Social History Tobacco Use Types Packs/Day Years Used Date Smoking Tobacco: Former Cigarettes 2 15 0 11/11/1973 - 11/11/1988 Smokeless Tobacco: Never Comments:10-15 years quit 35 years ago Alcohol Use Standard Drinks/Week Comments Not Currently 0 (1 standard drink = 0.6 oz pur e alcohol) 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 No 10/28/2023 Sex and Gender Information Value Date Recorded Sex Assigned at Not on file Gender Identity Not on file Sexual Orientation Not on file documented as of this encounter Plan of Treatment Upcoming Encounters Date Type Department Care Team (Late st Contact Info) Description 09/18/2024 10:30 AM EST Office Visit Hematology/Oncology at [address] [phone] Erica Yi [address] MEDICAL ONCOLOGY [place], [place] [phone] 09/18/2024 11:00 AM EST Infusion Hematology Oncology at [address] [phone] 10/01/2024 3:45 PM EST Office Visit Functional Anabaptism Program at [facility] [address] [place] [address] Gene Julien Jr., PT 12/23/2024 8:00 AM EST Appointment XRay at [address] [place] [phone] River Ochoa MD [address] [place], [place] [address] 01/21/2025 1:00 PM EDT Office Visit Radiation Oncology at [address] [phone] Tory Salazar PA [facility] DR [place] [address] Scheduled Orders Name Type Priority Associated Diagnoses Orde r Schedule Basic Metabolic Panel (non-fasting) Lab Routine Stage I breast cancer in female Osteopenia of neck of femur, unspecified laterality Expected: 03/09/2024, Expires: 09/08/2024 documented as of this encounter Visit Diagnoses Diagnosis Stage I breast cancer in female Osteopenia of neck of femur, unspecified laterality documented in this encounter Care Teams Quill Cleaning Machine Operator Relationship Specialty Start Date End Date Kya Caldwell MD [address] [place] [address] [place] [address] PCP - General Family Medicine 08/15/22 documented as of this encounter
--- OUTSIDE RECORDS SUMMARY | 2024-09-18 01:17 | XMS_ITS | Encounter Summary ---
Author Organization [facility] [place] [address] Care Team Providers Care Joint Supervisor Name Role Phone Kay Caldwell MD Primary Care Provider +1 [phone] Encounter Details Date Type Department Care Team (Latest Contact Info) Description 11/28/2023 Travel Social History Tobacco Use Types Packs/Day Years Used Date Smoking Tobacco: Former Cigarettes 2 15 0 11/11/1973 - 11/11/1988 Smokeless Tobacco: Never Comments:10-15 years quit 35 years ago Alcohol Use Standard Drinks/Week Comments Not Currently 0 (1 standard drink = 0.6 oz pur e alcohol) Recovering 41 years [facility] Utilities Answer Date Recorded In the [...] 10:30 AM EST Office Visit Hematology/Oncology at [address] [phone] Erica Yi APRN [address] [place] [address] DR MEDICAL ONCOLOGY [place], [place] [phone] 09/18/2024 11:00 AM EST Infusion Hematology Oncology at [address] [phone] 10/01/2024 3:45 PM EST Office Visit Functional Advent Program at [facility] [address] [place] [address] Gene Julien Jr., PT 12/23/2024 8:00 AM EST Appointment XRay at [address] [place] [address] River Ochoa MD [address] [place], [place] [address] 01/21/2025 1:00 PM EDT Office Visit Radiation Oncology at [address] [phone] Tory Salazar PA [facility] DR HEMAT[place] [address] documented as of this encounter Visit Diagnoses Not on filedocumented in this encounter Care Teams Joint Supervisor Relationship Specialty Start Date End Date Kay Caldwell MD [address] [place] [address] PCP - General Family Medicine 08/15/22 documented as of this encounter
--- OUTSIDE RECORDS SUMMARY | 2024-09-18 01:17 | XMS_ITS | Encounter Summary ---
Author Organization [facility] [place] [address] Care Team Providers Care School Standards Coach Name Role Phone Kay Caldwell MD Primary Care Provider +1 [phone] Encounter Details Date Type Department Care Team (Late st Contact Info) Description 04/10/2024 Interpretation Only Radiology Library at [facility], [place] [phone] Tory Salazar MD [facility] [place] [address] Social History Tobacco Use Types Packs/Day Years Used Date Smoking Tobacco: Former Cigarettes 2 15 0 11/11/1973 - 11/11/1988 Smokeless Tobacco: Never Comments:10-15 years quit 35 years ago Alcohol Use Standard Drinks/Week Comments Not Currently 0 (1 standard drink = 0.6 oz pur e alcohol) Recovering 41 years [facility] Utilities Answer Date Recorded In the past 12 months has [employer], gas, oil, or water [employer] threatened to shut off services in your [...] place to sleep or slept in a usp (including now)? No 10/28/2023 Sex and Gender Information Value Date Recorded Sex Assigned at Not on file Gender Identity Not on file Sexual Orientation Not on file documented as of this encounter Plan of Treatment Upcoming Encounters Date Type Department Care Team (Late st Contact Info) Description 09/18/2024 10:30 AM EST Office Visit Hematology/Oncology at [address] [phone] Erica Yi APRN [address] [place] [address] MEDICAL ONCOLOGY [place], [place] [address] 09/18/2024 11:00 AM EST Infusion Hematology Oncology at [address] [phone] 10/01/2024 3:45 PM EST Office Visit Functional Pentecostalism Program at [facility] [address] [place] [address] Gene Julein Jr., PT 12/23/2024 8:00 AM EST Appointment XRay at [address] [place] [phone] River Ochoa MD [address] [place] [address] 01/21/2025 1:00 PM EDT Office Visit Radiation Oncology at [address] [phone] Tory Salazar PA [facility] DR HEMATOLOGY [place] [address] documented as of this encounter Procedures Procedure Name Priority Date/Time Associated Diagnosis Comments FILM LIBRARY STORAGE ONLY MAMMO Routine 04/10/2024 2:30 PM EDT documented in this encounter Results * Film Library- Storage Only Mammo (04/10/2024 2:30 PM EDT) 04/19/2024 3:46 AM EDT Narrative [facility] - 04/19/2024 3:46 AM EDT This exam is auto-finalizing. It's purpose is for storage only. Tory Salazar MD IMG FILM LIBRARY ORD ERABLES Performing Organization Address City/State/[facility] Co de Phone Number [place], [place] documented in this encounter Visit Diagnoses Not on filedocumented in this encounter Care Teams School Standards Coach Relationship Specialty Start Date End Date Kay Caldwell MD [address] [place] [address] [address] [place] [address] PCP - General Family Medicine 08/15/22 documented as of this encounter
--- OUTSIDE RECORDS SUMMARY | 2024-09-18 01:17 | XMS_ITS | Encounter Summary ---
Author Organization [facility] [place] [address] Care Team Providers Care Director Of Veterans Affairs Name Role Phone Kay Caldwell MD Primary Care Provider [phone] [phone] Reason for Visit * Reason Onset Date Comments Other 03/16/2024 Encounter Details Date Type Department Care Team (Late st Contact Info) Description 03/16/2024 Telephone Hematology Oncology at [address] [phone] Pattie Villar RN Other Social History Tobacco Use Types Packs/Day Years Used Date Smoking Tobacco: Former Cigarettes 2 15 0 11/11/1973 - 11/11/1988 Smokeless Tobacco: Never Comments:10-15 years quit 35 years ago Alcohol Use Standard Drinks/Week Comments Not Currently 0 (1 standard drink = 0.6 oz pur e alcohol) Recovering 41 years [facility] Utilities Answer Date Recorded In the past 12 months has [employer], gas, oil, or water [employer] threatened to shut off services in your [...] Telephone Encounter - Pattie Villar RN - 03/16/2024 1:25 PM EDT Pt called she states she has been off her anastrozole for a week and is due to start letrozole March 18. She has less arthralgias since stopping and is wondering if it will be even less if she stays off medication longer. She is working with PT on pain issues and would like to know what pain iswhat. Arthralgias vs other issues. Reviewed with Annabelle Yi REPOSSESSOR she will talk with Dr. Fowler and team tomorrow and they will give pt a call with the plan. documented in this encounter Plan of Treatment Upcoming Encounters Date Type Department Care Team (Late st Contact Info) Description 09/18/2024 10:30 AM EST Office Visit Hematology/Oncology at [address] [phone] Erica Yi APRN [address] [place] [address] [place] [address] 09/18/2024 11:00 AM EST Infusion Hematology Oncology at [address] [phone] 10/01/2024 3:45 PM EST Office Visit Functional Lutheran Program at [facility] [address] [place] [address] Gene Julien , PT 12/23/2024 8:00 AM EST Appointment XRay at [address] [place] [address] River Ochoa MD [address] [place] [address] 01/21/2025 1:00 PM EDT Office Visit Radiation Oncology at [address] [phone] Tory Salazar PA [facility] [place] [address] documented as of this encounter Visit Diagnoses Not on filedocumented in this encounter Care Teams Director Of Veterans Affairs Relationship Specialty Start Date End Date Kay Caldwell MD [address] [place] [address] [address] [place] [address] PCP - General Family Medicine 08/15/22 documented as of this encounter
--- OUTSIDE RECORDS SUMMARY | 2024-09-18 01:17 | XMS_ITS | Encounter Summary ---
Author Organization [facility] [place] [address] Care Team Providers Care Oil Pipe Inspector Helper Name Role Phone Kay Caldwell MD Primary Care Provider [phone] Encounter Details Date Type Department Care Team (Latest Contact Info) Description 12/03/2023 Travel Social History Tobacco Use Types Packs/Day Years Used Date Smoking Tobacco: Former Cigarettes 2 15 0 11/11/1973 - 11/11/1988 Smokeless Tobacco: Never Comments:10-15 years quit 35 years ago Alcohol Use Standard Drinks/Week Comments Not Currently 0 (1 standard drink = 0.6 oz pur e alcohol) Recovering 41 years [facility] Utilities Answer Date Recorded In [...] place to sleep or slept in a half-way (including now)? No 10/28/2023 Sex and Gender Information Value Date Recorded Sex Assigned at Not on file Gender Identity Not on file Sexual Orientation Not on file documented as of this encounter Plan of Treatment Upcoming Encounters Date Type Department Care Team (Late st Contact Info) Description 09/18/2024 10:30 AM EST Office Visit Hematology/Oncology at [address] [phone] Erica Yi APRN [address] [place] [address] DR MEDICAL ONCOLOGY [place], [place] [phone] 09/18/2024 11:00 AM EST Infusion Hematology Oncology at [address] [phone] 10/01/2024 3:45 PM EST Office Visit Functional Yazidi Program at [facility] [address] [place] [address] Gene Julien Jr., PT 12/23/2024 8:00 AM EST Appointment XRay at [address] [place] [phone] River Ochoa MD [address] [place], [place] [address] 01/21/2025 1:00 PM EDT Office Visit Radiation Oncology at [address] [phone] Tory Salazar PA [facility] DR [place] [address] documented as of this encounter Visit Diagnoses Not on filedocumented in this encounter Care Teams Oil Pipe Inspector Helper Relationship Specialty Start Date End Date Kay Caldwell MD [address] [place] [address] PCP - General Family Medicine 08/15/22 documented as of this encounter
--- OUTSIDE RECORDS SUMMARY | 2024-09-18 01:17 | XMS_ITS | Encounter Summary ---
Author Organization [facility] [place] [place] [address] Care Team Providers Care Lead Military Analyst Name Role Phone Kay Caldwell MD Primary Care Provider [phone] Encounter Details Date Type Department Care Team (Latest Contact Info) Description 12/01/2023 Travel Social History Tobacco Use Types Packs/Day Years Used Date Smoking Tobacco: Former Cigarettes 2 15 0 11/11/1973 - 11/11/1988 Smokeless Tobacco: Never Comments:10-15 years quit 35 years ago Alcohol Use Standard Drinks/Week Comments Not Currently 0 (1 standard drink = 0.6 oz pur e alcohol) Recovering 41 years [facility] Utilities Answer Date Recorded In the [...] 10:30 AM EST Office Visit Hematology/Oncology at [address] [phone] Erica Yi APRN [address] [place] [address] DR MEDICAL ONCOLOGY [place], [place] [phone] 09/18/2024 11:00 AM EST Infusion Hematology Oncology at [address] [phone] 10/01/2024 3:45 PM EST Office Visit Functional Scientologist Program at [facility] [address] [place] [address] Gene Julien Jr., PT 12/23/2024 8:00 AM EST Appointment XRay at [address] [place] [address] River Ochoa MD [address] [place], [place] [address] 01/21/2025 1:00 PM EDT Office Visit Radiation Oncology at [address] [phone] Tory Salazar PA [facility] DR [place] [address] documented as of this encounter Visit Diagnoses Not on filedocumented in this encounter Care Teams Lead Military Analyst Relationship Specialty Start Date End Date Kay Caldwell MD [address] [place] [address] PCP - General Family Medicine 08/15/22 documented as of this encounter
--- OUTSIDE RECORDS SUMMARY | 2024-09-18 01:17 | XMS_ITS | Encounter Summary ---
Author Organization [facility] [place] [address] Care Team Providers Care Part Time Name Role Phone Kay Caldwell MD Primary Care Provider +1 [phone] Encounter Details Date Type Department Care Team (Late st Contact Info) Description 01/23/2024 Telephone Hematology Oncology at [address] [phone] Nicole Palomino, RN Social History Tobacco Use Types Packs/Day Years Used Date Smoking Tobacco: Former Cigarettes 2 15 0 11/11/1973 - 11/11/1988 Smokeless Tobacco: Never Comments:10-15 years quit 35 years ago Alcohol Use Standard Drinks/Week Comments Not Currently 0 (1 standard drink = 0.6 oz pur e alcohol) Recovering [address] [facility] Utilities Answer Date Recorded In the past 12 months has e [employer], gas, oil, or water [employer] threatened to shut off services in your [...] place to sleep or slept in a mcfp (including now)? No 10/28/2023 Sex and Gender Information Value Date Recorded Sex Assigned at Not on file Gender Identity Not on file Sexual Orientation Not on file documented as of this encounter Miscellaneous Notes * Telephone Encounter - Nicole Palomino RN - 01/23/2024 10:35 AM EDT Patient's called to discuss an issue. He states that the patient had genetic testing in October as well as the Onc-DX. He brought a hard copy but it is missing from the chart. They have beencalled to schedule a genetic testing appointment but they are confused because she already had thiscompleted. The patient's will hand carry the hard copy of testing done and I will give thisto Dr. Fowler on Saturday. Patient is satisfied with this plan. documented in this encounter Plan of Treatment Upcoming Encounters Date Type Department Care Team (Late st Contact Info) Description 09/18/2024 10:30 AM EST Office Visit Hematology/Oncology at [address] [phone] Erica Yi APRN [address] [place] [address] DR MEDICAL ONCOLOGY [place], [place] [address] 09/18/2024 11:00 AM EST Infusion Hematology Oncology at [address] [phone] 10/01/2024 3:45 PM EST Office Visit Functional Faith Program at [facility] [address] [place] [phone] Gene Julien Jr., PT 12/23/2024 8:00 AM EST Appointment XRay at [address] [place] [phone] River Ochoa MD [address] [place] [address] 01/21/2025 1:00 PM EDT Office Visit Radiation Oncology at [address] [phone] Tory Salazar PA [facility] HEMATOLOGY AND [place] [address] documented as of this encounter Visit Diagnoses Not on filedocumented in this encounter Care Teams Part Time Relationship Specialty Start Date End Date Kay Caldwell MD [address] [place] [address] [address] [place], [place] [address] PCP - General Family Medicine 08/15/22 documented as of this encounter
--- OUTSIDE RECORDS SUMMARY | 2024-09-18 01:17 | XMS_ITS | Encounter Summary ---
Author Organization [facility] [place] [place] [address] Care Team Providers Care Section Forest Fire Warden Name Role Phone Kay Caldwell MD Primary Care Provider [phone] Encounter Details Date Type Department Care Team (Late st Contact Info) Description 12/03/2023 Notes Only Radiation Oncology at [address] [phone] Monique Grijalva MD [facility] [place] [address] Social History Tobacco Use Types Packs/Day Years Used Date Smoking Tobacco: Former Cigarettes 2 15 0 11/11/1973 - 11/11/1988 Smokeless Tobacco: Never Comments:10-15 years quit 35 years ago Alcohol Use Standard Drinks/Week Comments Not Currently 0 (1 standard drink = 0.6 oz pur e alcohol) Recovering 41 years [facility] Utilities Answer Date Recorded In the past 12 months has [employer], gas, oil, or water [employer] threatened to shut off services in your [...] on file documented as of this encounter Progress Notes * Monique Grijalva MD - 12/03/2023 11:59 PM EST Josselyn Garduno has completed xrt for breast ca, R, IDC, gr 2, ER+WI+, Her2-, s/p lumpectomy & SNB followed by reexcision, pT1c pN0. Oncotype DX 7. Adjuvant anastrozole. The course of xrt is summarized as follows: Treatment was given from 11/19/23 to 12/03/23. 30 Gy in 5 fxs was given to R breast lumpectomy bed with 6 MV Xray external beam using VMAT. The course of xrt was tolerated well. Exam near completion of xrt showed mild erythema w/in irradiated area. Rtc 1 mo. documented in this encounter Plan of Treatment Upcoming Encounters Date Type Department Care Team (Late st Contact Info) Description 09/18/2024 10:30 AM EST Office Visit Hematology/Oncology at [address] [phone] Erica Yi APRN [address] [place] [address] DR MEDICAL ONCOLOGY [place], [place] [address] 09/18/2024 11:00 AM EST Infusion Hematology Oncology at [address] [phone] 10/01/2024 3:45 PM EST Office Visit Functional Zoroastrianism Program at [facility] [address] [place] [address] Gene Julien Jr., PT 12/23/2024 8:00 AM EST Appointment XRay at [address] [place] [address] River Ochoa MD [address] [place], [place] [address] 01/21/2025 1:00 PM EDT Office Visit Radiation Oncology at [address] [phone] Tory Salazar PA [facility] DR HEMATOLOGY [place] [address] documented as of this encounter Visit Diagnoses Not on filedocumented in this encounter Care Teams Section Forest Fire Warden Relationship Specialty Start Date End Date Kay Caldwell MD [address] [place] [address] [address] [place], [place] [address] PCP - General Family Medicine 08/15/22 documented as of this encounter
--- OUTSIDE RECORDS SUMMARY | 2024-09-18 01:17 | XMS_ITS | Encounter Summary ---
Author Organization [facility] [place] [address] Care Team Providers Care Team Cdl Driver Name Role Phone Kay Caldwell MD Primary Care Provider [phone] Encounter Details Date Type Department Care Team (Late st Contact Info) Description 04/10/2024 4:00 PM EDT Ancillary Procedure Radiology Library [facility] [place] [address] Tory Salazar MD [facility] [place] [address] Social History Tobacco Use Types Packs/Day Years Used Date Smoking Tobacco: Former Cigarettes 2 15 0 11/11/1973 - 11/11/1988 Smokeless Tobacco: Never Comments:10-15 years quit 35 years ago Alcohol Use Standard Drinks/Week Comments Not Currently 0 (1 standard drink = 0.6 oz pur e alcohol) Recovering 41 years [facility] Utilities Answer Date Recorded In the past 12 months has [employer], gas, oil, or water [employer] threatened to shut off services in your [...] 10:30 AM EST Office Visit Hematology/Oncology at [address] [phone] Erica Yi APRN [address] [place] [address] [place] [address] 09/18/2024 11:00 AM EST Infusion Hematology Oncology at [address] [phone] 10/01/2024 3:45 PM EST Office Visit Functional Gnosticist Program at [facility] [address] [place] [address] Gene Julien Jr., PT 12/23/2024 8:00 AM EST Appointment XRay at [address] [place] [phone] River Ochoa MD [address] [place] [address] 01/21/2025 1:00 PM EDT Office Visit Radiation Oncology at [address] [phone] Tory Salazar PA [facility] HEMATOLOGY [place] [address] documented as of this encounter Procedures Procedure Name Priority Date/Time Associated Diagnosis Comments FILM LIBRARY STORAGE ONLY ULTRASOUND STUDY Routine 04/10/2024 4:00 PM EDT documented in this encounter Results * Film Library- Storage Only Ultrasound Study (04/10/2024 4:00 PM EDT) 04/19/2024 3:46 AM EDT Narrative RAD - 04/19/2024 3:46 AM EDT This exam is auto-finalizing. It's purpose is for storage only. Tory Salazar MD IMG FILM LIBRARY ORD ERABLES [place], [place] documented in this encounter Visit Diagnoses Not on filedocumented in this encounter Care Teams Team Cdl Driver Relationship Specialty Start Date End Date Kay Caldwell MD [address] [place] [address] [place] [address] PCP - General Family Medicine 08/15/22 documented as of this encounter
--- OUTSIDE RECORDS SUMMARY | 2024-09-18 01:17 | XMS_ITS | Encounter Summary ---
Author Organization [facility] [place] [address] Care Team Providers Care Supervisor Ornamental Ironworking Name Role Phone Kay Caldwell MD Primary Care Provider [phone] Encounter Details Date Type Department Care Team (Latest Contact Info) Description 12/16/2023 Travel Social History Tobacco Use Types Packs/Day Years Used Date Smoking Tobacco: Former Cigarettes 2 15 0 11/11/1973 - 11/11/1988 Smokeless Tobacco: Never Comments:10-15 years quit 35 years ago Alcohol Use Standard Drinks/Week Comments Not Currently 0 (1 standard drink = 0.6 oz pur e alcohol) Recovering 41 years [facility] Utilities Answer Date Recorded In the [...] 10:30 AM EST Office Visit Hematology/Oncology at [address] [phone] Erica Yi APRN [address] [place] [address] DR MEDICAL ONCOLOGY [place], [place] [phone] 09/18/2024 11:00 AM EST Infusion Hematology Oncology at [address] [phone] 10/01/2024 3:45 PM EST Office Visit Functional Druze Program at [facility] [address] [place] [address] Gene Julien Jr., PT 12/23/2024 8:00 AM EST Appointment XRay at [address] [place] [address] River Ochoa MD [address] [place], [place] [address] 01/21/2025 1:00 PM EDT Office Visit Radiation Oncology at [address] [phone] Tory Salazar PA [facility] DR HEMATOLOGY [place] [address] documented as of this encounter Visit Diagnoses Not on filedocumented in this encounter Care Teams Supervisor Ornamental Ironworking Relationship Specialty Start Date End Date Kay Caldwell MD [address] [place] [address] PCP - General Family Medicine 08/15/22 documented as of this encounter
--- OUTSIDE RECORDS SUMMARY | 2024-09-18 01:17 | XMS_ITS | Encounter Summary ---
Author Organization [facility] [place] [address] Care Team Providers Care Vaccines Solutions Specialist Name Role Phone Kay Caldwell MD Primary Care Provider [phone] Encounter Details Date Type Department Care Team (Late st Contact Info) Description 05/21/2024 Interpretation Only [facility] in [facility] [address] [place] [address] Pham Clarke PA [address] [place] [address] Social History Tobacco Use Types Packs/Day Years Used Date Smoking Tobacco: Former Cigarettes 2 15 0 11/11/1973 - 11/11/1988 Smokeless Tobacco: Never Comments:10-15 years quit 35 years ago Alcohol Use Standard Drinks/Week Comments Not Currently 0 (1 standard drink = 0.6 oz pur e alcohol) Recovering 41 years [facility] Utilities Answer Date Recorded In the past 12 months has [employer], gas, oil, or water [employer] threatened to shut off services in your [...] 10:30 AM EST Office Visit Hematology/Oncology at [address] [phone] Erica Yi [address] [place] [address] 09/18/2024 11:00 AM EST Infusion Hematology Oncology at [address] [phone] 10/01/2024 3:45 PM EST Office Visit Functional Holiness Program at [facility] [address] [place] [address] Gene Julien Jr., PT 12/23/2024 8:00 AM EST Appointment XRay at [address] [place] [address] River Ochoa MD [address] [place] [address] 01/21/2025 1:00 PM EDT Office Visit Radiation Oncology at [address] [phone] Tory Salazar PA [facility] DR [place] [address] documented as of this encounter Procedures Procedure Name Priority Date/Time Associated Diagnosis Comments XR SHOULDER LEFT Routine 05/21/2024 1:09 PM EDT documented in this encounter Results * XR Shoulder Left (Generic) (05/21/2024 1:09 PM EDT) PT CLASS O RAD ADMITDTTM [id number] RAD PT RAD INFO [id number]^WENNBE RG^PHAM^D RAD EXAM DESC XRSHDL^XR SHOULDER 2V OR MORE LT^RIS [facility] WORKSTATION ID [id number] [facility] Anatomical Region Laterality Modality Shoulder Left Radiographic Libby ging Impressions 05/21/2024 9:37 PM EDT No acute fracture or dislocation Calcific rotator cuff tendinopathy. Thank you for letting us participate in the care of this patient. ??If you are a health care provider and have any questions regarding this report, please contact the number below. ??For patients who have questions please contact the health healthcare insurance sales agent that requested your imaging first. ? Narrative 05/21/2024 9:37 PM EDT EXAMINATION: XR SHOULDER 2V OR MORE LT CLINICAL HISTORY: Entered by ordering service: REASON: PAIN, JOINT, SHOULDER, LEFT ADD'L INFO: GRASHEY, SCAP Y, AXILLARY TECHNIQUE: LEFT shoulder4 views COMPARISON: Radiographs, February 23, 2013. FINDINGS: BONES: No acute fracture is present. AC JOINT: Normal AC joint alignment ??with subacromial spur No os acromiale. GLENOHUMERAL JOINT: ?? Small osteophytes. Concentric glenoid wear with moderate to severe narrowed joint space.fbb SOFT TISSUE: periarticular calcifications- 2 foci of amorphous mineralization around posterior humeral head represents infraspinatus calcific tendinopathy, SURVEY: No opacity seen following brief survey of the soft tissues including lung parenchyma. Procedure Note Luz Watts MD - 05/21/2024 EXAMINATION: XR SHOULDER 2V OR MORE LT CLINICAL HISTORY: Entered by ordering service: REASON: PAIN, JOINT, SHOULDER, LEFT ADD'L INFO: GRASHEY, SCAP Y,AXILLARY TECHNIQUE: LEFT shoulder4 views COMPARISON: Radiographs, February 23, 2013. FINDINGS: BONES: No acute fracture is present. AC JOINT: Normal AC joint alignment with subacromial spur No os acromiale. GLENOHUMERAL JOINT: Small osteophytes. Concentric glenoid wear with moderate to severenarrowed joint space.fbb SOFT TISSUE: periarticular calcifications- 2 foci of amorphous mineralization around posterior humeral head represents infraspinatus calcific tendinopathy, SURVEY: No opacity seen following brief survey of the soft tissues includinglung parenchyma. IMPRESSION No acute fracture or dislocation Calcific rotator cuff tendinopathy. Thank you for letting us participate in the care of this patient. If youare a health care provider and have any questions regarding this report,please contact the number below. For patients who have questions please contactthe health healthcare insurance sales agent that requested your imaging first. Pham [facility] IMG DX ORDERABLES documented in this encounter Visit Diagnoses Not on filedocumented in this encounter Care Teams Vaccines Solutions Specialist Relationship Specialty Start Date End Date Kay Caldwell MD [address] [place] [address] [place] [address] PCP - General Family Medicine 08/15/22 documented as of this encounter
--- OUTSIDE RECORDS SUMMARY | 2024-09-18 01:17 | XMS_ITS | Encounter Summary ---
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 Hem Onc Infusion [address] [place] [phone] Referral ID Status Reason Start Date Expiration Date V isits Requested Visits Authorized [id number] Authorized 12/31/2023 12/30/2024 1 99 Encounter Details Date Type Department Care Team (Late st Contact Info) Description 03/10/2024 3:30 PM EDT Infusion Hematology Oncology at [address] [phone] senior living current use of aromatase inhibitor; Osteopenia of neck of femur, unspecified laterality; Stage I breast cancer, right Social History Tobacco Use Types Packs/Day Years Used Date Smoking Tobacco: Former Cigarettes 2 15 0 11/11/1973 - 11/11/1988 Smokeless Tobacco: Never Comments:10-15 years quit 35 years ago Alcohol Use Standard Drinks/Week Comments Not Currently 0 (1 standard drink = 0.6 oz pur e alcohol) Recovering 41 years [facility] Utilities Answer Date Recorded In the [...] as of this encounter Progress Notes * Loren Jacobo RN - 03/10/2024 3:30 PM EDT Infusion Note Diagnosis:Breast Treatment: Zometa Infusion Creatinine: Zometa 4mg infused over 15 minutes Patient instructed on side effects of Zometa. Patient states understanding of teaching, Patient aware to call clinic with any questions or concerns. Plan: Return to clinic as scheduled. documented in this encounter Plan of Treatment Upcoming Encounters Date Type Department Care Team (Late st Contact Info) Description 09/18/2024 10:30 AM EST Office Visit Hematology/Oncology at [address] [phone] Erica Yi APRN [address] [place] [address] DR MEDICAL ONCOLOGY [place], [place] [address] 09/18/2024 11:00 AM EST Infusion Hematology Oncology at [address] [phone] 10/01/2024 3:45 PM EST Office Visit Functional Yazdanism Program at [address] [place] [address] Gene Julien Jr., PT 12/23/2024 8:00 AM EST Appointment XRay at [address] [place] [address] River Ochoa MD [address] [place], [place] [address] 01/21/2025 1:00 PM EDT Office Visit Radiation Oncology at [address] [phone] Tory Salazar PA [facility] HEMATOLOGY [place] [address] documented as of this encounter Visit Diagnoses Diagnosis senior living current use of aromatase inhibitor Use of aromatase inhibitors Osteopenia of neck of femur, unspecified laterality Stage I breast cancer, right documented in this encounter Administered Medications Inactive Administered Medications - up to 3 most recent administrations Medication Order MAR Action Action Date Dose Rate Site zoledronic acid (Zometa) 4 mg in mannitol and sodium chloride 0.9% 100 mL infusion 4 mg 4 mg, Intravenous, ONCE, 1 dose, On Sat03/10/24 at 1600, Administer over 15 Minutes, Do not administer or Y-site with calcium-containing solutions such as lactated ringers. Do not mix with IV Calcium-containing products. CrCl greater than 60 mL/min: Recommended dose is 4 mg IV. CrCl 50-60 mL/min: Reduce dose to 3.5 mg IV. CrCl 40-49 mL/min: Reduce dose to 3.3 mg IV. CrCl 30-39 mL/min: Reduce dose to 3 mg IV. CrCl less than 30 mL/min: Use not recommended due to lack of clinical data, Indication for: Others, For NON-emergent indications, ensure a baseline dental exam is completed prior to starting treatment in patients at risk of osteonecrosis of the jaw (e.g. cancer patients, diabetics, smokers, steroid use, poor dental hygiene, etc.): Acknowledged Given 03/10/2024 3:45 PM EDT 4 mg 400 mL/hr documented in this encounter Care Teams Hcc Coders Relationship Specialty Start Date End Date Kay Caldwell MD [address] [place] [address] [place] [address] PCP - General Family Medicine 08/15/22 documented as of this encounter
--- OUTSIDE RECORDS SUMMARY | 2024-09-18 01:17 | XMS_ITS | Encounter Summary ---
Author Organization [facility] [place] [address] Care Team Providers Care Automatic Typewriter Inspector Name Role Phone Kay Caldwell MD Primary Care Provider [phone] Encounter Details Date Type Department Care Team (Late st Contact Info) Description 01/28/2024 Telephone Hematology/Oncology at [address] [phone] Francine Subramanian, RN Social History Tobacco Use Types Packs/Day Years Used Date Smoking Tobacco: Former Cigarettes 2 15 0 11/11/1973 - 11/11/1988 Smokeless Tobacco: Never Comments:10-15 years quit 35 years ago Alcohol Use Standard Drinks/Week Comments Not Currently 0 (1 standard drink = 0.6 oz pur e alcohol) Recovering 41 years [facility] Utilities Answer Date Recorded In the past 12 months has [email or web address], gas, oil, or water company threatened [...] encounter Miscellaneous Notes * Telephone Encounter - Francine Subramanian RN - 01/28/2024 2:16 PM EDT Called Josselyn to let her know Dr. Fowler reviewed her genetic testing and advised she see her PCP for screening for colorectal cancer. She states she has this set up with her surgeon (he ordered the testing). Advised she does not need the genetic counseling ordered by Dr. Fowler. She was in agreement. documented in this encounter Plan of Treatment Upcoming Encounters Date Type Department Care Team (Late st Contact Info) Description 09/18/2024 10:30 AM EST Office Visit Hematology/Oncology at [address] [phone] Erica Yi APRN [address] [place] [address] [place] [address] 09/18/2024 11:00 AM EST Infusion Hematology Oncology at [address] [phone] 10/01/2024 3:45 PM EST Office Visit Functional Druze Program at [facility] [address] [place], [facility] Gene Julien Jr., PT 12/23/2024 8:00 AM EST Appointment XRay at [address] [place] [address] River Ochoa MD [address] [place] [address] 01/21/2025 1:00 PM EDT Office Visit Radiation Oncology at [address] [phone] Tory Salazar PA [facility] DR HEMATOLOGY [place] [address] documented as of this encounter Visit Diagnoses Not on filedocumented in this encounter Care Teams Automatic Typewriter Inspector Relationship Specialty Start Date End Date Kay Caldwell MD [address] [place] [address] [address] [place], [place] [address] PCP - General Family Medicine 08/15/22 documented as of this encounter
--- OUTSIDE RECORDS SUMMARY | 2024-09-18 01:17 | XMS_ITS | Encounter Summary ---
Author Organization [facility] [place] [address] Care Team Providers Care Vector Control Assistant Name Role Phone Kay Caldwell MD Primary Care Provider [phone] Reason for Visit * Reason Onset Date Comments Questions 12/18/2023 Encounter Details Date Type Department Care Team (Late st Contact Info) Description 12/18/2023 Telephone Hematology/Oncology at [address] [phone] Irving Peace, ALEXANDER Questions Social History Tobacco Use Types Packs/Day Years Used Date Smoking Tobacco: Former Cigarettes 2 15 0 11/11/1973 - 11/11/1988 Smokeless Tobacco: Never Comments:10-15 years quit 35 years ago Alcohol Use Standard Drinks/Week Comments Not Currently 0 (1 standard drink = 0.6 oz pur e alcohol) Recovering 41 years [facility] Utilities Answer Date Recorded In the past 12 months has [employer], gas, oil, or water [employer] threatened to shut off services in your [...] encounter Miscellaneous Notes * Telephone Encounter - Irving Peace RN - 12/18/2023 1:[address] Fowler ordered Fosamax for bone strengthening. Pt request it be sent to [facility] in [place]. Called pharmacy and they have script, it will cost $27.45 for 3 months worth. Pt can pick it up this afternoon. Called pt back and made them aware. They were thankful for the follow up. ----- Message from Mariah Cisse sent at 12/18/2023 10:15 AM EST ----- Luis Manuel Josselyn's call in looking for a prescription that they were told would be prescribed. I do not see anything new for new meds listed. He has been to the pharmacy twice looking for a med that has not been prescribed and he aslo did not know what type Best call back number is [phone] 's cell documented in this encounter Plan of Treatment Upcoming Encounters Date Type Department Care Team (Late st Contact Info) Description 09/18/2024 10:30 AM EST Office Visit Hematology/Oncology at [address] [phone] Erica Yi APRN [address] [place] [address] DR MEDICAL ONCOLOGY [place], [place] [phone] 09/18/2024 11:00 AM EST Infusion Hematology Oncology at [address] [phone] 10/01/2024 3:45 PM EST Office Visit Functional Methodist Program at [place] [address] [place] [address] Gene Julien Jr., PT 12/23/2024 8:00 AM EST Appointment XRay at [address] [place] [address] River Ochoa MD [address] [place], [place] [address] 01/21/2025 1:00 PM EDT Office Visit Radiation Oncology at [address] [phone] Tory Salazar PA [facility] DR HEMATOLOGY [place] [address] documented as of this encounter Visit Diagnoses Not on filedocumented in this encounter Care Teams Vector Control Assistant Relationship Specialty Start Date End Date Kay Caldwell MD [address] [place] [address] [address] [place] [address] PCP - General Family Medicine 08/15/22 documented as of this encounter
--- OUTSIDE RECORDS SUMMARY | 2024-09-18 01:17 | XMS_ITS | Encounter Summary ---
Author Organization [facility] [place] [address] Care Team Providers Care Packaging Assembler Name Role Phone Kay Caldwell MD Primary Care Provider [phone] Encounter Details Date Type Department Care Team (Latest Contact Info) Description 11/26/2023 Travel Social History Tobacco Use Types Packs/Day Years Used Date Smoking Tobacco: Former Cigarettes 2 15 0 11/11/1973 - 11/11/1988 Smokeless Tobacco: Never Comments:10-15 years quit 35 years ago Alcohol Use Standard Drinks/Week Comments Not Currently 0 (1 standard drink = 0.6 oz pur e alcohol) Recovering 41 years [facility] Utilities Answer Date Recorded In [...] 10:30 AM EST Office Visit Hematology/Oncology at [address] [phone] Erica Yi APRN [address] [place] [address] DR MEDICAL ONCOLOGY [place], [place] [phone] 09/18/2024 11:00 AM EST Infusion Hematology Oncology at [address] [phone] 10/01/2024 3:45 PM EST Office Visit Functional Caodaism Program at [facility] [address] [place] [address] Gene Julien Jr., PT 12/23/2024 8:00 AM EST Appointment XRay at [address] [place] [address] River Ochoa MD [address] [place], [place] [address] 01/21/2025 1:00 PM EDT Office Visit Radiation Oncology at [address] [phone] Tory Salazar PA [facility] [place] [address] documented as of this encounter Visit Diagnoses Not on filedocumented in this encounter Care Teams Packaging Assembler Relationship Specialty Start Date End Date Kay Caldwell MD [address] [place] [address] PCP - General Family Medicine 08/15/22 documented as of this encounter
--- OUTSIDE RECORDS SUMMARY | 2024-09-18 01:17 | XMS_ITS | Encounter Summary ---
Author Organization [facility] [place] [address] Care Team Providers Care Quality Control Projectionist Name Role Phone Kay Caldwell MD Primary Care Provider [phone] Reason for Visit * Reason Onset Date Comments Questions 02/24/2024 Encounter Details Date Type Department Care Team (Late st Contact Info) Description 02/24/2024 Telephone Hematology/Oncology at [address] [phone] Pattie Villar, ALEXANDER Questions Social History Tobacco Use Types Packs/Day Years Used Date Smoking Tobacco: Former Cigarettes 2 15 0 11/11/1973 - 11/11/1988 Smokeless Tobacco: Never Comments:10-15 years quit 35 years ago Alcohol Use Standard Drinks/Week Comments Not Currently 0 (1 standard drink = 0.6 oz pur e alcohol) Recovering 41 years [facility] Utilities Answer Date Recorded In the past 12 months has [employer] gas, oil, or water [employer] threatened to shut off services in your [...] Telephone Encounter - Pattie Villar RN - 02/24/2024 10:10 AM EDT Pt's called and stated Josselyn experiencing body aches in arms and legs. She is still activeand wants to remain so. Told him I would let Dr. Fowler know and they can discuss further when she sees her on March 10 and what might be options she can try so she does not have these body aches. He also asked about zometa infusion. Let him know it was IV infusion takes about 15 minutes and used to strength her bones for her osteopenia. Told him I would update Dr. Fowler on this so she can discuss with pt on the . He agreed with plan. documented in this encounter Plan of Treatment Upcoming Encounters Date Type Department Care Team (Late st Contact Info) Description 09/18/2024 10:30 AM EST Office Visit Hematology/Oncology at [address] [phone] Erica Yi APRN [address] [place] [address] [place] [address] 09/18/2024 11:00 AM EST Infusion Hematology Oncology at [address] [phone] 10/01/2024 3:45 PM EST Office Visit Functional Gnosticism Program at [facility] [address] [place] [address] Gene Julien Jr., PT 12/23/2024 8:00 AM EST Appointment XRay at [address] [place] [address] River Ochoa MD [address] [place], [place] [address] 01/21/2025 1:00 PM EDT Office Visit Radiation Oncology at [address] [phone] Tory Salazar PA [facility] DR HEMATOLOGY [place] [address] documented as of this encounter Visit Diagnoses Not on filedocumented in this encounter Care Teams Quality Control Projectionist Relationship Specialty Start Date End Date Kay Caldwell MD [address] [place] [address] [address] [place] [address] PCP - General Family Medicine 08/15/22 documented as of this encounter
--- OUTSIDE RECORDS SUMMARY | 2024-09-18 01:17 | XMS_ITS | Encounter Summary ---
Author Organization [facility] [place] [address] Care Team Providers Care Submersible Pilot Name Role Phone Kay Caldwell MD Primary Care Provider [phone] Reason for Visit * Reason Comments Follow-up Encounter Details Date Type Department Care Team (Late st Contact Info) Description 12/31/2023 10:00 AM EST Office Visit Radiation Oncology at [address] [phone] Monique Grijalva MD [facility] [place] [address] S/P radiotherapy Social History Tobacco Use Types Packs/Day Years Used Date Smoking Tobacco: Former Cigarettes 2 15 0 11/11/1973 - 11/11/1988 Smokeless Tobacco: Never Comments:10-15 years quit 35 years ago Alcohol Use Standard Drinks/Week Comments Not Currently 0 (1 standard drink = 0.6 oz pur e alcohol) Recovering 41 years [facility] Utilities Answer Date Recorded In the past 12 months has [employer] electric, gas, oil, or water company threatened [...] money to buy more. Never true 10/28/20 Within the past 12 months, t he [...] place to sleep or slept in a snf (including now)? No 10/28/2023 Sex and Gender Information Value Date Recorded Sex Assigned at Not on file Gender Identity Not on file Sexual Orientation Not on file documented as of this encounter Last Filed Vital Signs Vital Sign Reading Time Taken Comments Blood Pressure 146/60 12/31/2023 9:15 AM EST Pulse 66 12/31/2023 9:15 AM EST Temperature 36.9 ??C (98.4 ??F) 12/31/2023 9:15 AM ES T Respiratory Rate 18 12/31/2023 9:15 AM EST Oxygen Saturation 96% 12/31/2023 9:15 AM EST Inhaled Oxygen Concentration - - Weight 90.9 kg (200 lb 6.4 oz) 12/31/2023 9:15 A M EST Height - - Body Mass Index 35.96 12/17/2023 1:19 PM EST documented in this encounter Patient Instructions * Patient Instructions* Monique Grijalva MD - 12/31/2023 10:00 AM EST Your exam shows that you are healing nicely from radiotherapy. You may use a straight/regular razor on your right underarm. You may expose the irradiated area to sun, but it is recommended that you apply sunscreen with an SPF of @ least #45 on the irradiated area prior to exposing it to sun. You may swim in chlorinated water. You may expose irradiated area to hot tub water. Someone will contact you to schedule folllowup in 6 months. documented in this encounter Progress Notes * Monique Grijalva MD - 12/31/2023 10:00 AM EST Images from the original note were not included. CC: Scheduled followup s/p xrt completion. 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 Started on anastrozole since xrt completion. S: Skin w/in irrad'd area well healed. No breast problem. Heartburn & abdominal discomfort since starting fosamax rx'd by Dr. Fowler. Past Medical History: Diagnosis Date Breast cancer HTN (hypertension) No lupus/scleroderma. Diverticulitis Spinal foraminal stenosis Mitral stenosis Past Surgical History: Procedure Laterality Date COLECTOMY 2020 MASTECTOMY, PARTIAL Right PRO INJ, FORAMEN, L/S, 1 LEVEL Right 10/09/2022 INJECTION, ANESTHETIC AGENT AND/OR STEROID, TRANSFORAMINAL EPIDURAL, LUMBAR OR SACRAL, SINGLE LEVEL(WRVU 1.9) performed by Cosmo Blanco [facility] at [facility] PRO INJ, FORAMEN, L/S, 1 LEVEL Right 11/09/2022 INJECTION, ANESTHETIC AGENT AND/OR STEROID, TRANSFORAMINAL EPIDURAL, LUMBAR OR SACRAL, SINGLE LEVEL(WRVU 1.9) performed by Jose Tai MD at [facility] PRO INJ, FORAMEN, L/S, ADDL LEVELS Right 10/09/2022 INJECTION, ANESTHETIC AGENT AND/OR STEROID, TRANSFORAMINAL EPIDURAL, LUMBAR OR SACRAL, EACH ADDITIONAL LEVEL (WRVU 1) performed by Cosmo Blanco MD at [facility] PRO INJECTION DX/THER SBST INTRLMNR LMBR/SAC W/IMG GDN Right 11/21/2022 INJECTION, EPIDURAL, LUMBAR OR SACRAL (CAUDAL), WITH IMAGING GUIDANCE (WRVU 1.8) performed by Jose Tai MD at [facility] PRO INJECTION PV FACET JOINT LUMBAR/SACRAL SINGLE LEVEL Right 12/11/2022 INJECTION, FACET JOINT, W\FLUORO, LUMBAR, SINGLE (WRVU 1.52) performed by Jose Tai MD at [facility] Your Medications Accurate as of December 31, 2023 9:39 AM. If you have any questions, ask your nurse or doctor. Continued medications with new dosing Dose Details Naltrexone (Bulk) 100 % Powder Take 4.5 mg by mouth daily What changed: additional instructions Quantity: 1 g Refills: 3 Continued medications, unchanged Dose Details ACETAMINOPHEN ORAL Take 2 tablets by mouth as needed. 2 tablet Refills: 0 alendronate 70 mg tablet Commonly known as: Fosamax Take 1 tablet by mouth every 7 days. Take in AM with full glass of water, on an empty stomach. Do not lie down for 30 min. Take 1 tablet once a week. This is NOT a daily medication. 70 mg Quantity: 12 tablet Refills: 3 anastrozole 1 mg tablet Commonly known as: Arimidex Take 1 mg by mouth daily. 1 mg Refills: 0 cholecalciferol (Vitamin D3) 50 mcg (2,000 unit) Capsule Take 2,000 Units by mouth daily. 2,000 Units Refills: 0 clobetasoL 0.05 % Ointment Commonly known as: Temovate Apply topically 2 times daily. Refills: 0 diphenhydrAMINE-acetaminophen 25-500 mg Tablet Commonly known as: TYLENOL PM Take by mouth. Refills: 0 HERBAL DRUGS ORAL Take by mouth. [place] Wort, lemon balm, passiflora, leonorus, hypericum Refills: 0 ketoconazole 2 % Shampoo Commonly known as: NIZORAL daily as needed. Refills: 0 lisinopriL 10 mg tablet Commonly known as: Zestril Refills: 0 multivitamin Tablet Commonly known as: THERAGRAN Take 1 tablet by mouth daily. 1 tablet Refills: 0 nystatin 100,000 unit/gram Powder Commonly known as: MYCOSTATIN Prn Refills: [address] capsule Commonly known as: PriLOSEC Refills: 0 REMEDY PHYTOPLEX MOISTURIZER TOP Apply topically. Phytoplex Remedy Moisturizer: Apply to area of radiation twice a day but no less than 2 hours before a treatment. Refills: 0 simvastatin 20 mg tablet Commonly known as: Zocor nightly. Refills: 0 theanine 100 mg Tablet, Chewable Take 200 mg by mouth. 200 mg Refills: 0 UNABLE TO FIND Take by mouth daily. Nitric oxide supplements Refills: 0 venlafaxine 25 mg tablet Commonly known as: Effexor 37.5 mg daily. 37.5 mg Refills: 0 Physical Exam Constitutional: General: She is not in acute distress. Comments: BP 146/60 (Patient Position: Sitting) Pulse 66 Temp 36.9 ??C (98.4 ??F) (Temporal) Resp 18 Wt 90.9 kg (200 lb 6.4 oz) SpO2 96% BMI 35.96 kg/m?? HENT: Head: Normocephalic. Eyes: General: No scleral icterus. Right eye: No discharge. Left eye: No discharge. Extraocular Movements: Extraocular movements intact. Conjunctiva/sclera: Conjunctivae normal. Pulmonary: Effort: Pulmonary effort is normal. No respiratory distress. Breath sounds: No stridor. Chest: Breasts: Right: Skin change (mild hyperpigmentation irrad'd area, consistent w/not unexpected post xrt change) present. No inverted nipple, mass, nipple discharge or tenderness. Left: No inverted nipple, mass, nipple discharge, skin change or tenderness. Abdominal: General: There is no distension. Palpations: Abdomen is soft. There is no mass. Tenderness: There is no abdominal tenderness. There is no guarding or rebound. Musculoskeletal: General: No swelling or tenderness. Normal range of motion. Cervical back: Normal range of motion and neck supple. No tenderness. Right lower leg: No edema. Left lower leg: No edema. Lymphadenopathy: Head: Right side of head: No submental, submandibular, preauricular, posterior auricular or occipital adenopathy. Left side of head: No submental, submandibular, preauricular, posterior auricular or occipital adenopathy. Cervical: No cervical adenopathy. Upper Body: Right upper body: No supraclavicular or axillary adenopathy. Left upper body: No supraclavicular or axillary adenopathy. Neurological: Mental Status: She is alert and oriented to person, place, and time. Coordination: Coordination normal. Gait: Gait normal. Psychiatric: Mood and Affect: Mood normal. Behavior: Behavior normal. Thought Content: Thought content normal. Judgment: Judgment normal. A: Healing well s/p xrt. P: Care of irrad'd skin discussed. Rtc 6 mos. B mmg due in Jul. Rad Onc nurse communicating w/Dr. Fowler's nurse about heartburn & abdominal discomfort since starting fosamax. documented in this encounter Plan of Treatment Upcoming Encounters Date Type Department Care Team (Late st Contact Info) Description 09/18/2024 10:30 AM EST Office Visit Hematology/Oncology at [address] [phone] Erica Yi APRN [address] [place] [place] [address] DR MEDICAL ONCOLOGY [place], [place] [phone] 09/18/2024 11:00 AM EST Infusion Hematology Oncology at [address] [phone] 10/01/2024 3:45 PM EST Office Visit Functional Yazidism Program at [address] [place] [phone] Gene Julien Jr., PT 12/23/2024 8:00 AM EST Appointment XRay at [address] [place] [address] River Ochoa MD [address] [place] [address] 01/21/2025 1:00 PM EDT Office Visit Radiation Oncology at [address] [phone] Tory Salazar PA [facility] [place] [address] documented as of this encounter Visit Diagnoses Diagnosis S/P radiotherapy Convalescence following radiotherapy documented in this encounter Care Teams Submersible Pilot Relationship Specialty Start Date End Date Kay Caldwell MD [address] [place] [address] [place] [address] PCP - General Family Medicine 08/15/22 documented as of this encounter
--- OUTSIDE RECORDS SUMMARY | 2024-09-18 01:17 | XMS_ITS | Encounter Summary ---
Author Organization [facility] [place] [address] Care Team Providers Care Display Carver Name Role Phone Kay Caldwell MD Primary Care Provider [phone] Encounter Details Date Type Department Care Team (Late st Contact Info) Description 06/08/2024 Interpretation Only [facility] [address] [place] [address] Yariel Nash PA [address] [place] [address] Social History Tobacco Use Types Packs/Day Years Used Date Smoking Tobacco: Former Cigarettes 2 15 0 11/11/1973 - 11/11/1988 Smokeless Tobacco: Never Comments:10-15 years quit 35 years ago Alcohol Use Standard Drinks/Week Comments Not Currently 0 (1 standard drink = 0.6 oz pur e alcohol) Recovering [address] [facility] Utilities Answer Date Recorded In the past 12 months has [employer] electric, gas, oil, or water [employer] threatened to shut off services in your [...] AM EST Office Visit Hematology/Oncology at [address] [phone] [address] Yi [address] [place] [address] 09/18/2024 11:00 AM EST Infusion Hematology Oncology at [address] [phone] 10/01/2024 3:45 PM EST Office Visit Functional [facility]an Program at [facility] [address] [place] [phone] Gene Julien Jr., PT 12/23/2024 8:00 AM EST Appointment XRay at [address] [place] [phone] River Ochoa MD [address] [place] [address] 01/21/2025 1:00 PM EDT Office Visit Radiation Oncology at [address] [phone] Tory Salazar PA [facility] DR [place] [address] documented as of this encounter Procedures Procedure Name Priority Date/Time Associated Diagnosis Comments MRI UPPER EXTREMITY JOINT WO CONTRAST LEFT Routine 06/08/2024 3:06 PM EDT documented in this encounter Results * MRI UPPER EXTREMITY JOINT WO CONTRAST LEFT (06/08/2024 3:06 PM EDT) PT CLASS O RAD ADMITDTTM [id number] RAD PT RAD INFO [id number]^MARY^ YARIEL^K RAD EXAM DESC [id number]^MR UPPER EXT ANY JOINT LT WO CONTRAST^RIS RAD WORKSTATION ID [id number] [facility] Anatomical Region Laterality Modality Other Addenda Addendum by Faustino Burnett MD on 07/02/2024 11:48 AM EDT ADDENDUM #1 MRI of the LEFT upper extremity performed without intravenous contrast administration. Thank you for letting us participate in the care of this patient. ??If you are a health care provider and have any questions regarding this report, please contact the number below. ??For patients who have questions please contact the health healthcare financial analyst that requested your imaging first. ? ORIGINAL REPORT EXAMINATION: MR UPPER EXT ANY JOINT LT WO CONTRAST CLINICAL HISTORY: REASON: PAIN, JOINT, SHOULDER, LEFT ADD'L INFO: PATIENT HAS MEDICARE AND [employer] NO PRIOR AUTH TECHNIQUE: COMPARISON: X-ray 05/21/2024 [...] at the junction of the supraspinatus infraspinatus, likely reflecting a focus of full-thickness tearing with [...] have questions please contact the health healthcare financial analyst that requested your imaging first. ? Impressions 06/08/2024 3:44 PM EDT AC joint osteoarthritic change. Some imaging features [...] at the junction of the supraspinatus infraspinatus, likely reflecting a focus of full-thickness tearing with [...] have questions please contact the health healthcare financial analyst that requested your imaging first. ? Narrative 06/08/2024 3:44 PM EDT EXAMINATION: MR UPPER EXT ANY JOINT LT WO CONTRAST CLINICAL HISTORY: REASON: PAIN, JOINT, SHOULDER, LEFT ADD'L INFO: PATIENT HAS MEDICARE AND [employer] NO PRIOR AUTH TECHNIQUE: COMPARISON: X-ray 05/21/2024 [...] occur underlying subchondral bone at the glenoid. Procedure Note Faustino Burnett MD - 06/08/2024 EXAMINATION: MR UPPER EXT ANY JOINT LT WO CONTRAST CLINICAL HISTORY: REASON: PAIN, JOINT, SHOULDER, LEFT ADD'L INFO: PATIENTHAS MEDICARE AND [facility] NO PRIOR AUTH TECHNIQUE: COMPARISON: X-ray 05/21/2024 FINDINGS: There is moderate hypertrophic osteoarthritis at the AC joint with aneffusion within the joint as well as a small erosive changes on both sides of thejoint with associated low-grade bone marrow edema, overall suggesting anactive arthritic process. There is mild lateral downsloping of the acromionrelative to the ECG joint. Lateral acromion is of type I morphology. There is ill-definition and elevation of signal seen at both the bursaland articular surfaces of the supraspinatus tendon. Partial-thicknessarticular surface at tearing is suspected there. At the junction between the supraspinatus and infraspinatus tendons, thereis a focus of maceration of the rotator cuff, with a few fibrils remainingintact, but to a good possibility of affectively a full-thickness tear withpercolation of the's of intrasynovial fluid at the glenohumeral joint into the subacromial/subdeltoid bursa, the latter markedly distended. There is a ill-definition of the bursal surface of the infraspinatustendon, and a partial-thickness articular surface tear extending about 50% of theway through the tendon at the infraspinatus. There is a focus of soft tissue calcification measuring about the 7/2 mmin diameter occurring within the more inferior distal infraspinatus tendon.Another focus of soft tissue mineralization occurs at the supra distalinfraspinatus tendon, of similar size. These were present at the knee x-ray evaluationof 05/21/2024. Subscapularis muscle belly and tendon unremarkable. The tendon of long head of the biceps appears intact, but a longitudinalsplit or longitudinal intrasubstance degeneration is seen within this tendonbeginning at the superior aspect of the intertubercular groove and extending tothe bicipital labral junction. Small subcortical cysts and sclerotically marginated erosions occur atthe superior aspect of the lesser tuberosity, as well as at the posteriorsuperior aspect of the greater tuberosity underlying the rotator cuff insertions. Sizable effusion at the glenohumeral joint and the subacromial/subdeltoidbursa, likely with communication between these 2 compartments through an areaof maceration, occurring at the junction of the supraspinatus andinfraspinatus tendons. Significant osteoarthritis at the glenohumeral joint, with loss ofarticular cartilage thickness and osteophyte formations at the inferior margin ofthe joint. Low-grade bone marrow edema/hypervascularity also parallels theinferior articular subchondral bone at the humeral head. Low-grade reactivemarrow changes also occur underlying subchondral bone at the glenoid. IMPRESSION AC joint osteoarthritic change. Some imaging features suggest an ongoing inflammatory/active process there. Advanced osteoarthritis at the glenohumeral joint, as manifest byvarying degrees of loss of articular cartilage, ossified formations and reactivemarrow changes. Zones of partial-thickness articular and bursal surface tearing at therotator cuff involving the supraspinatus and infraspinatus. There is additionallya zone of maceration of the rotator cuff at the junction of the supraspinatus infraspinatus, likely reflecting a focus of full-thickness tearing withfluid percolating between the glenohumeral joint and subacromial/subdeltoidbursa. Sizable effusion at the subacromial/subdeltoid bursa/glenohumeral joint. Calcific deposits in 2 foci at the infraspinatus tendon, details asabove. Thank you for letting us participate in the care of this patient. If youare a health care provider and have any questions regarding this report,please contact the number below. For patients who have questions please contactthe health healthcare financial analyst that requested your imaging first. Yariel ALVAREZ P[facility] [employer] documented in this encounter Visit Diagnoses Not on filedocumented in this encounter Care Teams Display Carver Relationship Specialty Start Date End Date Kay Caldwell MD [address] [place] [address] [address] [place], [place] [address] PCP - General Family Medicine 08/15/22 documented as of this encounter
--- OUTSIDE RECORDS SUMMARY | 2024-09-18 01:17 | XMS_ITS | Encounter Summary ---
Author Organization [facility] [place] [place] [address] Care Team Providers Care Infantry Operations Specialist Name Role Phone Kay Caldwell MD Primary Care Provider [phone] Encounter Details Date Type Department Care Team (Latest Contact Info) Description 12/31/2023 Travel Social History Tobacco Use Types Packs/Day Years Used Date Smoking Tobacco: Former Cigarettes 2 15 0 11/11/1973 - 11/11/1988 Smokeless Tobacco: Never Comments:10-15 years quit 35 years ago Alcohol Use Standard Drinks/Week Comments Not Currently 0 (1 standard drink = 0.6 oz pur e alcohol) Recovering 41 years [facility] Utilities Answer Date Recorded In the [...] AM EST Office Visit Hematology/Oncology at [address] [phone] Erica Yi APRN [address] [place] [address] DR MEDICAL ONCOLOGY [place], [place] [phone] 09/18/2024 11:00 AM EST Infusion Hematology Oncology at [address] [phone] 10/01/2024 3:45 PM EST Office Visit Functional [facility] at [facility] [address] [place] [address] Gene Julien Jr., PT 12/23/2024 8:00 AM EST Appointment XRay at [address] [place] [phone] River Ochoa MD [address] [place], [place] [address] 01/21/2025 1:00 PM EDT Office Visit Radiation Oncology at [address] [phone] Tory Salazar PA [facility] DR [place] [address] documented as of this encounter Visit Diagnoses Not on filedocumented in this encounter Care Teams Infantry Operations Specialist Relationship Specialty Start Date End Date Kay Caldwell MD [address] [place] [id number] PCP - General Family Medicine 08/15/22 documented as of this encounter
--- OUTSIDE RECORDS SUMMARY | 2024-09-18 01:17 | XMS_ITS | Encounter Summary ---
Author Organization [facility] [place] [address] Care Team Providers Care Materials Planner Name Role Phone Kay Caldwell MD Primary Care Provider [phone] Encounter Details Date Type Department Care Team (Latest Contact Info) Description 03/09/2024 Travel Social History Tobacco Use Types Packs/Day Years Used Date Smoking Tobacco: Former Cigarettes 2 15 0 11/11/1973 - 11/11/1988 Smokeless Tobacco: Never Comments:10-15 years quit 35 years ago Alcohol Use Standard Drinks/Week Comments Not Currently 0 (1 standard drink = 0.6 oz pur e alcohol) Recovering 41 years [facility] Utilities Answer Date Recorded In [...] 10:30 AM EST Office Visit Hematology/Oncology at [address] [phone] Erica Yi APRN [address] [place] [address] DR MEDICAL ONCOLOGY [place], [place] [phone] 09/18/2024 11:00 AM EST Infusion Hematology Oncology at [address] [phone] 10/01/2024 3:45 PM EST Office Visit Functional Zoroastrian Program at [facility] [address] [place] [address] Gene Julien Jr., PT 12/23/2024 8:00 AM EST Appointment XRay at [address] [place] [address] River Ochoa MD [address] [place], [place] [address] 01/21/2025 1:00 PM EDT Office Visit Radiation Oncology at [address] [phone] Tory Salazar PA [facility] DR [place] [address] documented as of this encounter Visit Diagnoses Not on filedocumented in this encounter Care Teams Materials Planner Relationship Specialty Start Date End Date Kay Caldwell MD [address] [place] [id number] PCP - General Family Medicine 08/15/22 documented as of this encounter
--- OUTSIDE RECORDS SUMMARY | 2024-09-18 01:17 | XMS_ITS | Encounter Summary ---
[place] [address] Care Team Providers Care Inorganic Chemistry Professor Name Role Phone Kay Caldwell MD Primary Care Provider [phone] [phone] Reason for Visit * Reason Onset Date Comments New Medication Request 06/10/2024 Want Nalt rexone script renewed. Encounter Details Date Type Department Care Team (Late st Contact Info) Description 06/10/2024 Telephone [facility] [place] [phone] Angeles Arteaga RN New Medication Request (Want Naltrexone script renewed.) Social History Tobacco Use Types Packs/Day Years Used Date Smoking Tobacco: Former Cigarettes 2 15 0 11/11/1973 - 11/11/1988 Smokeless Tobacco: Never Comments:10-15 years quit 35 years ago Alcohol Use Standard Drinks/Week Comments Not Currently 0 (1 standard drink = 0.6 oz pur e alcohol) Recovering 41 years [facility] Utilities Answer Date Recorded In the past 12 months has [employer], gas, oil, or water [employer] threatened to shut off services in your [...] Encounter - Angeles Arteaga RN - 06/10/2024 9:43 AM EDT Out going return call to tell Josselyn that we got her message about needing the Naltrexone script refilled. LVMM for her to call us back do to need to know the dose she is taking and also that she will need to make an apt to come in since she hasn't been seen in the clinic for a year . Stated it is hospital policy that she must be seen once a year if we are prescribing medications for her or she may reach out to her PCP for the Naltrexone script. documented in this encounter Plan of Treatment Upcoming Encounters Date Type Department Care Team (Late st Contact Info) Description 09/18/2024 10:30 AM EST Office Visit Hematology/Oncology at [address] [phone] Erica Yi APRN [address] [place] [address] MEDICAL ONCOLOGY [place], [place] [address] 09/18/2024 11:00 AM EST Infusion Hematology Oncology at [address] [phone] 10/01/2024 3:45 PM EST Office Visit Functional Nondenominational Program at [facility] [address] [place] [address] Gene Julien Jr., PT 12/23/2024 8:00 AM EST Appointment XRay at [address] [place] [address] [place] Ochoa MD [address] [place] [address] 01/21/2025 1:00 PM EDT Office Visit Radiation Oncology at [address] [phone] Tory Salazar PA [facility] DR HEMATOLOGY [place] [address] documented as of this encounter Visit Diagnoses Not on filedocumented in this encounter Care Teams Inorganic Chemistry Professor Relationship Specialty Start Date End Date Kay Caldwell MD [address] [place] [address] [address] [place] [address] PCP - General Family Medicine 08/15/22 documented as of this encounter
--- OUTSIDE RECORDS SUMMARY | 2024-09-18 01:17 | XMS_ITS | Encounter Summary ---
Author Organization [facility]ly [facility] [place] [address] Care Team Providers Care Mechanic Industrial Truck Name Role Phone Kay Caldwell MD Primary Care Provider [phone] Encounter Details Date Type Department Care Team (Latest Contact Info) Description 12/24/2023 Travel Social History Tobacco Use Types Packs/Day Years Used Date Smoking Tobacco: Former Cigarettes 2 15 0 11/11/1973 - 11/11/1988 Smokeless Tobacco: Never Comments:10-15 years quit 35 years ago Alcohol Use Standard Drinks/Week Comments Not Currently 0 (1 standard drink = 0.6 oz pur e alcohol) Recovering 41 years [facility] Utilities Answer Date Recorded In the [...] 10:30 AM EST Office Visit Hematology/Oncology at [address] [phone] Erica Yi APRN [address] [place] [address] DR MEDICAL ONCOLOGY [place], [place] [phone] 09/18/2024 11:00 AM EST Infusion Hematology Oncology at [address] [phone] 10/01/2024 3:45 PM EST Office Visit Functional Spiritism Program at [facility] [address] [place] [address] Gene Julien Jr., PT 12/23/2024 8:00 AM EST Appointment XRay at [address] [place] [address] River Ochoa MD [address] [place], [place] [address] 01/21/2025 1:00 PM EDT Office Visit Radiation Oncology at [address] [phone] Tory Salazar PA [facility] [place] [address] documented as of this encounter Visit Diagnoses Not on filedocumented in this encounter Care Teams Mechanic Industrial Truck Relationship Specialty Start Date End Date Kay Caldwell MD [address] [place] [id number] PCP - General Family Medicine 08/15/22 documented as of this encounter
--- OUTSIDE RECORDS SUMMARY | 2024-09-18 01:17 | XMS_ITS | Encounter Summary ---
Author Organization [facility] [place] [address] Care Team Providers Care Erp Manager Name Role Phone Kay Caldwell MD Primary Care Provider [phone] Encounter Details Date Type Department Care Team (Late st Contact Info) Description 04/10/2024 Interpretation Only Radiology Library at [facility] [place] [phone] Tory Salazar MD [facility] [place] [address] Social History Tobacco Use Types Packs/Day Years Used Date Smoking Tobacco: Former Cigarettes 2 15 0 11/11/1973 - 11/11/1988 Smokeless Tobacco: Never Comments:10-15 years quit 35 years ago Alcohol Use Standard Drinks/Week Comments Not Currently 0 (1 standard drink = 0.6 oz pur e alcohol) Recovering [address] [facility] Utilities Answer Date Recorded In the past 12 months has [employer], gas, oil, or water [employer] threatened to shut off services in your [...] AM EST Office Visit Hematology/Oncology at [address] [phone] Erica Yi APRN [address] [place] [address] MEDICAL ONCOLOGY [place], [place] [address] 09/18/2024 11:00 AM EST Infusion Hematology Oncology at [address] [phone] 10/01/2024 3:45 PM EST Office Visit Functional Muslim Program at [facility] [address] [place] [address] Gene Julien Jr., PT 12/23/2024 8:00 AM EST Appointment XRay at [address] [place] [phone] River Ochoa MD [address] [place] [address] 01/21/2025 1:00 PM EDT Office Visit Radiation Oncology at [address] [phone] Tory Salazar PA [facility] DR HEMATOLOGY [place] [address] documented as of this encounter Procedures Procedure Name Priority Date/Time Associated Diagnosis Comments FILM LIBRARY STORAGE ONLY ULTRASOUND STUDY Routine 04/10/2024 4:00 PM EDT documented in this encounter Results * Film Library- Storage Only Ultrasound Study (04/10/2024 4:00 PM EDT) 04/19/2024 3:46 AM EDT Narrative [facility] - 04/19/2024 3:46 AM EDT This exam is auto-finalizing. It's purpose is for storage only. Tory Salazar MD IMG FILM LIBRARY ORD ERABLES Performing Organization Address City/State/[facility] Co de Phone Number [place], [place] documented in this encounter Visit Diagnoses Not on filedocumented in this encounter Care Teams Erp Manager Relationship Specialty Start Date End Date Kay Caldwell MD [address] [place] [address] [address] [place], [place] [address] PCP - General Family Medicine 08/15/22 documented as of this encounter
--- OUTSIDE RECORDS SUMMARY | 2024-09-18 01:17 | XMS_ITS | Encounter Summary ---
Author Organization [facility]ly [facility] [place] [address] Care Team Providers Care Cloth Drier Name Role Phone Kay Caldwell MD Primary Care Provider [phone] Encounter Details Date Type Department Care Team (Late st Contact Info) Description 03/17/2024 Telephone Hematology/Oncology at [address] [phone] Francine Subramanian, RN Social History Tobacco Use Types Packs/Day Years Used Date Smoking Tobacco: Former Cigarettes 2 15 0 11/11/1973 - 11/11/1988 Smokeless Tobacco: Never Comments:10-15 years quit 35 years ago Alcohol Use Standard Drinks/Week Comments Not Currently 0 (1 standard drink = 0.6 oz pur e alcohol) Recovering 41 years [facility] Utilities Answer Date Recorded In the past 12 months has [employer], gas, oil, or water company threatened [...] Telephone Encounter - Francine Subramanian RN - 03/17/2024 11:16 AM EDT Josselyn agreed to start letrozole tomorrow. * Telephone Encounter - Francine Subramanian RN - 03/17/2024 11:16 AM EDT ----- Message from Pattie Villar RN sent at 03/17/2024 11:10 AM EDT ----- Regarding: FW: off for only a week See below can you call pt and let her know ----- Message ----- From: Nichole Fowler MD Sent: 03/17/2024 11:07 AM EDT To: Pattie Villar RN; Erica Yi APRN Subject: RE: off for only a week Monster Blankenship, I would recommend starting letrozole as planned yolande as tx early on really matters. We will continue to closely monitor Nichole ----- Message ----- From: Pattie Villar RN Sent: 03/16/2024 12:27 PM EDT To: Nichole Fowler MD; # Subject: off for only a week Avi and Nichole, Pt stopped her anastrozole and has had some relief from arthralgias, she is wondering if it could get any better being off it longer. She is supposed to start the letrozole this Saturday. I'm wondering if she should wait another week to see if things improve more before she adds in letrozole. She is working with PT on the aches and pains and wants to know where it is coming from. What do you all think? Pattie ----- Message ----- From: Minal Alarcon Sent: 03/16/2024 9:00 AM EDT To: [facility] Hem Onc Nurse called and Josselyn is still experiencing some side effects. Is this normal, going into the next week, to still be having these side effects. [phone] Please call after 9:30, as she is at an appt. documented in this encounter Plan of Treatment Upcoming Encounters Date Type Department Care Team (Late st Contact Info) Description 09/18/2024 10:30 AM EST Office Visit Hematology/Oncology at [address] [phone] Erica Yi APRN [address] [place] [address] MEDICAL ONCOLOGY [place], [place] [address] 09/18/2024 11:00 AM EST Infusion Hematology Oncology at [address] [phone] 10/01/2024 3:45 PM EST Office Visit Functional Adventist Program at [place] [address] [place] [address] Gene Julien Jr., PT 12/23/2024 8:00 AM EST Appointment XRay at [address] [place] [phone] River Ochoa MD [address] [place] [address] 01/21/2025 1:00 PM EDT Office Visit Radiation Oncology at [address] [phone] Tory Salazar PA [facility] DR HEMATOLOGY [place] [address] documented as of this encounter Visit Diagnoses Not on filedocumented in this encounter Care Teams Cloth Drier Relationship Specialty Start Date End Date Kay Caldwell MD [address] [place] [address] [address] [place], [place] [address] PCP - General Family Medicine 08/15/22 documented as of this encounter
--- OUTSIDE RECORDS SUMMARY | 2024-09-18 01:17 | XMS_ITS | Encounter Summary ---
Author Organization [facility] [place] [address] Care Team Providers Care Technology Specialist Name Role Phone Kay Caldwell MD Primary Care Provider [phone] Encounter Details Date Type Department Care Team (Late st Contact Info) Description 04/10/2024 2:30 PM EDT Ancillary Procedure Radiology Library at [facility] [place] [address] Tory Salazar MD [facility] [place] [address] Social History Tobacco Use Types Packs/Day Years Used Date Smoking Tobacco: Former Cigarettes 2 15 0 11/11/1973 - 11/11/1988 Smokeless Tobacco: Never Comments:10-15 years quit 35 years ago Alcohol Use Standard Drinks/Week Comments Not Currently 0 (1 standard drink = 0.6 oz pur e alcohol) Recovering 41 years [facility] Utilities Answer Date Recorded In the past 12 months has [employer], gas, oil, or water [employer] threatened to shut off services in your [...] 10:30 AM EST Office Visit Hematology/Oncology at [address] [phone] Erica Yi APRN [address] [place] [address] [place] [address] 09/18/2024 11:00 AM EST Infusion Hematology Oncology at [address] [phone] 10/01/2024 3:45 PM EST Office Visit Functional Mandaeism Program at [facility] [address] [place] [address] Gene Julien Jr., PT 12/23/2024 8:00 AM EST Appointment XRay at [address] [place] [phone] River Ochoa MD [address] [place] [address] 01/21/2025 1:00 PM EDT Office Visit Radiation Oncology at [address] [phone] Tory Salazar PA [facility] [place] [address] documented as of this encounter Procedures Procedure [...] Salazar MD IMG FILM LIBRARY ORD ERABLES [place], [place] documented in this encounter Visit Diagnoses Not on filedocumented in this encounter Care Teams Technology Specialist Relationship Specialty Start Date End Date Kay Caldwell MD [address] [place] [address] [place] [address] PCP - General Family Medicine 08/15/22 documented as of this encounter
--- OUTSIDE RECORDS SUMMARY | 2024-09-18 01:17 | XMS_ITS | Encounter Summary ---
[place] [address] Care Team Providers Care Horse Trader Name Role Phone Kay Caldwell MD Primary Care Provider [phone] Encounter Details Date Type Department Care Team (Late st Contact Info) Description 04/20/2024 Orders Only H[place]ology [place] [phone] Nichole Fowler MD Social History Tobacco Use Types Packs/Day Years Used Date Smoking Tobacco: Former Cigarettes 2 15 0 11/11/1973 - 11/11/1988 Smokeless Tobacco: Never Comments:10-15 years quit 35 years ago Alcohol Use Standard Drinks/Week Comments Not Currently 0 (1 standard drink = 0.6 oz pur e alcohol) Recovering 41 years [facility] Utilities Answer Date Recorded In [...] as of this encounter Progress Notes * Nichole Fowler MD - 04/20/2024 2:50 PM EDT Switching back to anastrazole. Order placed per patient message documented in this encounter Plan of Treatment Upcoming Encounters Date Type Department Care Team (Late st Contact Info) Description 09/18/2024 10:30 AM EST Office Visit Hematology/Oncology at [address] [phone] Erica Yi APRN [address] [place] [address] DR MEDICAL ONCOLOGY [place], [place] [address] 09/18/2024 11:00 AM EST Infusion Hematology Oncology at [address] [phone] 10/01/2024 3:45 PM EST Office Visit Functional Confucianism Program at [facility] [address] [place] [address] Gene Julien Jr., PT 12/23/2024 8:00 AM EST Appointment XRay at [address] [place] [phone] River Ochoa MD [address] [place] [address] 01/21/2025 1:00 PM EDT Office Visit Radiation Oncology at [address] [phone] Tory Salazar PA [facility] [place] [address] documented as of this encounter Visit Diagnoses Not on filedocumented in this encounter Care Teams Horse Trader Relationship Specialty Start Date End Date Kay Caldwell MD [address] [place] [address] [address] [place] [address] PCP - General Family Medicine 08/15/22 documented as of this encounter
--- OUTSIDE RECORDS SUMMARY | 2024-09-18 01:17 | XMS_ITS | Encounter Summary ---
[place] [address] Care Team Providers Care Senior Firewall Engineer Name Role Phone Kay Caldwell MD Primary Care Provider [phone] Reason for Referral * Diagnostic Test (Routine) - Closed Specialty Diagnoses / Procedures Referred By Contac t Referred To Contact Radiology Diagnoses Arthritis of left shoulder region Procedures XR Fluoro Guided Joint Injection Large Left Image Guided MSK Joint/Tendon Injection/Aspiration (Generic) River Ochoa MD [address] [place] [address] Referral ID Status Reason Start Date Expiration Date V isits Requested Visits Authorized [id number] Closed Specialty Service Requested 04/22/2024 10/22/2025 1 1 Reason for Visit * Diagnostic Test (Routine) - Closed Specialty Diagnoses / Procedures Referred By Contac t Referred To Contact Radiology Diagnoses Arthritis of left shoulder region Procedures XR Fluoro Guided Joint Injection Large Left Image Guided MSK Joint/Tendon Injection/Aspiration (Generic) River Ochoa MD [address] [place] [address] Referral ID Status Reason Start Date Expiration Date V isits Requested Visits Authorized [id number] Closed Specialty Service Requested 04/22/2024 10/22/2025 1 1 Encounter Details Date Type Department Care Team (Latest Contact Info) Description 04/24/2024 8:02 AM EDT - 04/24/2024 11:59 PM EDT Hospital Encounter XRay at [address] [place] [address] River Ochoa MD [address] [place] [address] Arthritis of left shoulder region Discharge Disposition: Home Social History Tobacco Use Types Packs/Day Years Used Date Smoking Tobacco: Former Cigarettes 2 15 0 11/11/1973 - 11/11/1988 Smokeless Tobacco: Never Comments:10-15 years quit 35 years ago Alcohol Use Standard Drinks/Week Comments Not Currently 0 (1 standard drink = 0.6 oz pur e alcohol) Recovering 41 years [facility] Utilities Answer Date Recorded In the [...] this encounter Discharge Instructions * Patient Instructions* Randa Lyon - 04/24/2024 8:20 AM EDT Post Injection Patient Instructions You received an injection by VALEREI SPEAR PA-C in the diagnostic section of radiology. Procedure: LEFT SHOULDER INJECTION In the days following the injection: Low [...] is during regular office hours, please call [phone]. If it is after regular office hours, or on weekends or holidays, please call [phone] and ask to speak to the Landscape Contractor forensic identification specialist. Revised on 12/04/22 documented in this encounter Medications at Time of Discharge Medication Sig Dispensed Refills Start Date End Date anastrozole (Arimidex) 1 mg tabletIndications:horm one receptor [...] daily. HERBAL DRUGS ORAL Take by mouth. Rozel Wort, lemon balm, passiflora, leonorus, hypericum ACETAMINOPHEN ORAL Take 2 tablets by mouth as needed. lisinopriL (Zestril) 10 mg Tablet 06/27/2022 omeprazole (PriLOSEC) 20 mg Capsule, Delayed Release(E.C.) 06/27/2022 simvastatin (Zocor) 20 mg Tablet nightly. 07/02/2022 ketoconazole (NIZORAL) 2 % Shampoo daily as needed. 01/29/2023 07/17/2024 Naltrexone, Bulk, 100 % Powder Take 4.5 mg by mouth daily 1 g 3 12/14/2022 06/10/2024 documented as of this encounter Plan of Treatment Upcoming Encounters Date Type Department Care Team (Late st Contact Info) Description 09/18/2024 10:30 AM EST Office Visit Hematology/Oncology at [address] [phone] Erica Yi APRN [address] [place] [address] [place] [address] 09/18/2024 11:00 AM EST Infusion Hematology Oncology at [address] [phone] 10/01/2024 3:45 PM EST Office Visit Functional [facility] at [facility] [address] [place] [address] Gene Julien JrDerrell, PT 12/23/2024 8:00 AM EST Appointment XRay at [address] [place] [phone] River Ochoa MD [address] [place] [address] 01/21/2025 1:00 PM EDT Office Visit Radiation Oncology at [address] [phone] Tory Salazar PA [facility] HEMATOLOGY AND ONCOLOGY [place] [address] documented as of this encounter Procedures Procedure Name Priority Date/Time Associated Diagnosis Comments XR FLUORO INJECTION DRAINAGE JOINT LG LEFT Routine 04/24/2024 8:33 AM EDT Arthritis of left shoulder region documented in this encounter Results * XR Fluoro Guided Joint Injection Large Left (04/24/2024 8:33 AM EDT) WORKSTATION ID [id number] [facility] Anatomical Region Laterality Modality Left Radio Fluoroscop y Impressions 04/24/2024 9:09 AM EDT Technically successful left glenohumeral joint injection under fluoroscopy. Resident/Fellow: None Service Provider: ??Luba Spear PA-C Attending of Record: Dr. Veronica Richard MD Preliminary report signed by: KIM Guerrero at 04/24/2024 8:56 AM I have personally reviewed the image(s) and the provider's interpretation and agree with the findings, Veronica Richard MD at 04/24/2024 9:09 AM Thank you for letting us participate in the care of this patient. ??If you are a health care provider and have any questions regarding this report, please contact the number below. ??For patients who have questions please contact the health health care marketing manager that requested your imaging first. ? Electronically signed by: Veronica Richard MD, [facility] ([phone]), at 04/24/2024 9:09 AM Narrative 04/24/2024 9:09 AM EDT LEFT GLENOHUMERAL JOINT INJECTION UNDER FLUOROSCOPY CLINICAL HISTORY: left shoulder arthritis - pain M19.012, Primary osteoarthritis, left shoulder TECHNIQUE: After an extensive conversation with the patient regarding risks and benefits, oral and written consent were obtained.?A pre- procedural time-out was performed, including review of the patient's relevant electronic medical record and allergies, as per [facility] protocol. The patient was placed supine on the fluoroscopic table. ??The skin overlying anterior left shoulder was prepped and draped in the usual aseptic manner. 1% Lidocaine was used to achieve local anesthesia. Under fluoroscopic guidance, 25-gauge 1.5 was advanced into the joint space. ??Small amount of Omnipaque 300 was injected to document needle placement. ??A mixture of Ropivacaine and methylprednisolone was injected. All needles removed at end of procedure. FINDINGS: 1. ??Small amount of injected contrast in the left glenohumeral joint space. 2. ??PAIN SCORE: ??Before: 8/10 ??After: 2/10 3. Fluoroscopy time: 0.08 minutes 4. Medications: ??Lidocaine 1% - <5 ml, for subcutaneous anesthesia ??Ropivacaine HCL ??0.5% - 4 ml ??Methylprednisolone - 40 mg 5. Images: Contrast appreciated in the left glenohumeral joint space. Rotator cuff calcific tendinitis. No fracture or joint malalignment based on the frontal projection. COMPLICATIONS: ??None immediate. POST-PROCEDURE CARE: Information regarding monitor of infection, post- procedural pain and management of steroid flare were reviewed with patient. Procedure Note Veronica Richard MD - 04/24/2024 LEFT GLENOHUMERAL JOINT INJECTION UNDER FLUOROSCOPY CLINICAL HISTORY: left shoulder arthritis - pain M19.012, Primary osteoarthritis, left shoulder TECHNIQUE: After an extensive conversation with the patient regardingrisks and benefits, oral and written consent were obtained.?A pre- proceduraltime-out was performed, including review of the patient's relevant electronic medicalrecord and allergies, as per [facility] protocol. The patient was placed supine on the fluoroscopic table. The skinoverlying anterior left shoulder was prepped and draped in the usual aseptic manner.1% Lidocaine was used to achieve local anesthesia. Under fluoroscopicguidance, 25-gauge 1.5 was advanced into the joint space. Small amount of [id number] was injected to document needle placement. A mixture of Ropivacaine and methylprednisolone was injected. All needles removed at end ofprocedure. FINDINGS: 1. Small amount of injected contrast in the left glenohumeral jointspace. 2. PAIN SCORE: Before: 8/10 After: 2/10 3. Fluoroscopy time: 0.08 minutes 4. Medications: Lidocaine 1% - <5 ml, for subcutaneous anesthesia Ropivacaine HCL 0.5% - 4 ml Methylprednisolone - 40 mg 5. Images: Contrast appreciated in the left glenohumeral joint space.Rotator cuff calcific tendinitis. No fracture or joint malalignment based on thefrontal projection. COMPLICATIONS: None immediate. POST-PROCEDURE CARE: Information regarding monitor of infection, post- procedural pain and management of steroid flare were reviewed withpatient. IMPRESSION Technically successful left glenohumeral joint injection under fluoroscopy. Resident/Fellow: None Service Provider: Luba Spear PA-C Attending of Record: Dr. Veronica Richard MD Preliminary report signed by: KIM Guerrero at 04/24/2024 8:56AM I have personally reviewed the image(s) and the provider's interpretationand agree with the findings, Veronica Richard MD at 04/24/2024 9:09 AM Thank you for letting us participate in the care of this patient. If youare a health care provider and have any questions regarding this report,please contact the number below. For patients who have questions please contactthe health health care marketing manager that requested your imaging first. Electronically signed by: Veronica Richard MD, [facility]([phone]), at 04/24/2024 9:09 AM River Ochoa MD IMG FLUORO ORDERABLE S documented in this encounter Visit Diagnoses Diagnosis Arthritis of left shoulder region Unspecified arthropathy, shoulder region documented in this encounter Administered Medications Inactive Administered Medications - up to 3 most recent administrations Medication Order MAR Action Action Date Dose Rate Site iohexoL (Omnipaque) (300 mg/mL) solution 0-10 mL 0-10 mL, Intra-articular, ONCE, 1 dose, On Sat04/24/24 at 0845, Warning Vesicant/Irritant Medication , Radiology Contrast, Routine Given 04/24/2024 8:45 AM EDT 2 mLs lidocaine (Xylocaine) 1% (10 mg/mL) injection 0-100 mg 0-100 mg (0-10 mL), Intra-articular, ONCE, 1 dose, On Sat04/24/24 at 0845, Radiology Protocol Medication, Routine Given 04/24/2024 8:45 AM EDT 5 mg methylPREDNISolone acetate (DEPO-Medrol) (40 mg/mL) injection 0-160 mg 0-160 mg, Intra-articular, ONCE, 1 dose, On Sat04/24/24 at 0845, Radiology Protocol Medication, Routine Given 04/24/2024 8:45 AM EDT 40 mg ROPivacaine (PF) (Naropin) 0.5% (5 mg/mL) injection 0-50 mg 0-50 mg (0-10 mL), Intra-articular, ONCE, 1 dose, On Sat04/24/24 at 0845, Radiology Protocol Medication, Routine Bolus from Infusion 04/24/2024 8:45 AM EDT 4 mg documented in this encounter Care Teams Senior Firewall Engineer Relationship Specialty Start Date End Date Kay Caldwell MD [address] [place] [address] [address] [place] [address] PCP - General Family Medicine 08/15/22 documented as of this encounter
--- OUTSIDE RECORDS SUMMARY | 2024-09-18 01:17 | XMS_ITS | Encounter Summary ---
Author Organization [facility] [place] [address] Care Team Providers Care Publishing Editor Name Role Phone Kay Caldwell MD Primary Care Provider [phone] Encounter Details Date Type Department Care Team (Late st Contact Info) Description 04/22/2024 [place] [phone] Margarita Morales PA [facility] [place] [address] Social History Tobacco Use Types Packs/Day Years Used Date Smoking Tobacco: Former Cigarettes 2 15 0 11/11/1973 - 11/11/1988 Smokeless Tobacco: Never Comments:10-15 years quit 35 years ago Alcohol Use Standard Drinks/Week Comments Not Currently 0 (1 standard drink = 0.6 oz pur e alcohol) Recovering 41 years [facility] Utilities Answer Date Recorded In the past 12 months has [place], gas, oil, or water [employer] threatened to shut off services in your [...] 10:30 AM EST Office Visit Hematology/Oncology at [address] [phone] Erica Yi APRN [address] [place] [address] MEDICAL ONCOLOGY [place], [place] [address] 09/18/2024 11:00 AM EST Infusion Hematology Oncology at [address] [phone] 10/01/2024 3:45 PM EST Office Visit Functional Gnosticist Program at [facility] [address] [place] [phone] Gene Julien Jr., PT 12/23/2024 8:00 AM EST Appointment XRay at [address] [place] [phone] River Ochoa MD [address] [place] [address] 01/21/2025 1:00 PM EDT Office Visit Radiation Oncology at [address] [phone] Tory Salazar PA [facility] [place] [address] documented as of this encounter Visit Diagnoses Not on filedocumented in this encounter Care Teams Publishing Editor Relationship Specialty Start Date End Date Kay Caldwell MD [address] [place] [address] [address] [place] [address] PCP - General Family Medicine 08/15/22 documented as of this encounter
--- OUTSIDE RECORDS SUMMARY | 2024-09-18 01:17 | XMS_ITS | Encounter Summary ---
Author Organization [facility] [place] [address] Care Team Providers Care Teacher Cclc Name Role Phone Kay Caldwell MD Primary Care Provider +1 [phone] Encounter Details Date Type Department Care Team (Late st Contact Info) Description 03/10/2024 3:00 PM EDT Office Visit Hematology/Oncology at [address] [phone] Nichole Fowler MD Perreault, Alexandra H, APRN [address] [place] [address] [place] [address] Stage I breast cancer in female Social History Tobacco Use Types Packs/Day Years Used Date Smoking Tobacco: Former Cigarettes 2 15 0 11/11/1973 - 11/11/1988 Smokeless Tobacco: Never Comments:10-15 years quit 35 years ago Alcohol Use Standard Drinks/Week Comments Not Currently 0 (1 standard drink = 0.6 oz pur e alcohol) Recovering 41 years [facility] Utilities Answer Date Recorded In the past 12 months has [employer] electric, gas, oil, or water company threatened [...] Sign Reading Time Taken Comments Blood Pressure 135/61 03/10/2024 2:56 PM EDT Pulse 78 03/10/2024 2:56 PM EDT Temperature 36.5 ??C (97.7 ??F) 03/10/2024 2:56 PM ED T Respiratory Rate 16 03/10/2024 2:56 PM EDT Oxygen Saturation 96% 03/10/2024 2:56 PM EDT Inhaled Oxygen Concentration - - Weight 87 kg (191 lb 12.8 oz) 03/10/2024 2:56 PM EDT Height 159 cm (5' 2.6) 03/10/2024 2:56 PM EDT Body Mass Index 34.41 03/10/2024 2:56 PM EDT documented in this encounter Progress Notes * Erica Yi APRN - 03/10/2024 3:00 PM EDT Images from the original note were not included. [facility]ICAL ON[facility] Patient Name: Josselyn Garduno : 1945 Visit Date: 03/09/2024 PCP: Kay Caldwell MD Breast surgical oncology: Dmitri Schultz MD ([facility]) Radiation oncology: Monique Grijalva MD Reason for visit: Scheduled follow-up for stage I (pT1c pN0) Right breast cancer - ER+ IA+ HER2 - DIAGNOSIS: Stage I (pT1c pN0) Right breast cancer - ER+ IA+ HER2 - Breast cancer stage: Clinical stage: cT1b,cN0 Pathological stage: pT1c pN0 Type: IDC and DCIS Grade: Intermediate grade Receptor status: ER+ (>90%), IA+ (>90%), HER2 negative (0) Menopausal status: Postmenopausal [...] Pathology revealing grade II IDC, ER+ (>90%), IA+ (>90%), HER2 negative (0) 09/18/23: Right partial mastectomy + SLNB: grade II, 13 mm, single focus of IDC; DCIS present; SLNB:0/1: positive anterior margin 10/09/23: re-excision 10/29/23: started anastrozole 11/19-12/03/23: RT to the right breast 11/26/2023: Oncotype DX RS: 17 HPI: Mrs. Josselyn Garduno is a 78 y.o. female who presents today for follow up for adjuvant anastrozole for stage I ER positive, IA positive, HER2 negative right breast cancer. Josselyn is here today with her Luis Manuel. Interval history: #Monitoring treatment related side effects: #hot flashes: Josselyn is endorsing hot flashes that are intermittent and short- lived. She has described them as not bothersome #Arthralgia: Josselyn endorsed baseline arthralgia affecting her thumbs and elbows. She also has bilateral knee replacements. Over the last two months, all of her pre-existing arthralgias have worsened. #H/O chronic neck and low back pain in context of cervical and lumbar canal stenosis: Pain has worsened over the last 2months. She has neck, bilateral shoulder and arm pain that is worse in the morning everyday but lasts all day. #Vaginal dryness: Stable vaginal dryness, not worsening, and no recurrent UTIs. Using replens. #Fatigue: Josselyn reports she feels like she is dragging now. Very tired all of the time. #Monitoring compliance with/adherence to treatment: Josselyn endorsed starting anastrozole on 10/29/2023, with interruption during radiation therapy as previously discussed to mitigate compilation of side effects. She has otherwise not missed any doses.She will resume anastrozole today #ROS: #headaches: very faint headache occassionally #no new bone aches #Breast concerns: Josselyn endorsed darker/erythematous skin s/p RT. She also endorsed that it somewhat itching but otherwise no breast concerns Review of Systems Constitutional: Positive for fatigue. [...] and dysuria. Musculoskeletal: Positive for arthralgias, back pain, myalgias and neck pain. Negative for flank pain, gait problem and neck stiffness. Skin: Negative for rash. Neurological: Negative for dizziness, extremity weakness, gait problem, headaches, light-headedness, numbness and speech difficulty. Hematological: Negative for adenopathy. Medical History: Past Medical History: Diagnosis Date Breast cancer HTN (hypertension) Current Medications: Current Outpatient Medications Medication Sig Note anastrozole (Arimidex) 1 mg tablet Take 1 mg by mouth daily. diphenhydrAMINE-acetaminophen (TYLENOL PM) 25-500 mg Tablet Take [...] daily. HERBAL DRUGS ORAL Take by mouth. Yell Wort, lemon balm, passiflora, leonorus, hypericum 12/03/2023: Plans to restart tomorrow ACETAMINOPHEN ORAL Take 2 tablets by mouth as needed. lisinopriL (Zestril) 10 mg Tablet omeprazole (PriLOSEC) 20 mg Capsule, Delayed Release(E.C.) simvastatin (Zocor) 20 mg Tablet nightly. Surgical History: Past Surgical History: Procedure Laterality Date COLECTOMY 2020 MASTECTOMY, PARTIAL Right PRO INJ, FORAMEN, L/S, 1 LEVEL Right 10/09/2022 INJECTION, ANESTHETIC AGENT AND/OR STEROID, TRANSFORAMINAL EPIDURAL, LUMBAR OR SACRAL, SINGLE LEVEL(WRVU 1.9) performed by Cosmo Blanco MD at [facility] PA[facility] MGMT MSO PRO INJ, FORAMEN, L/S, 1 LEVEL Right 11/09/2022 INJECTION, ANESTHETIC AGENT AND/OR STEROID, TRANSFORAMINAL EPIDURAL, LUMBAR OR SACRAL, SINGLE LEVEL(WRVU 1.9) performed by Jose Tai MD at [facility] MGMT MSO PRO INJ, FORAMEN, L/S, ADDL LEVELS Right 10/09/2022 INJECTION, ANESTHETIC AGENT AND/OR STEROID, TRANSFORAMINAL EPIDURAL, LUMBAR OR SACRAL, EACH ADDITIONAL LEVEL (WRVU 1) performed by Cosmo Blanco MD at [facility] MSO PRO INJECTION DX/THER SBST INTRLMNR LMBR/SAC W/IMG GDN Right 11/21/2022 INJECTION, EPIDURAL, LUMBAR OR SACRAL (CAUDAL), WITH IMAGING GUIDANCE (WRVU 1.8) performed by Jose Tai MD at [facility] MGMT MSO PRO INJECTION PV FACET JOINT LUMBAR/SACRAL SINGLE LEVEL Right 12/11/2022 INJECTION, FACET JOINT, W\FLUORO, LUMBAR, SINGLE (WRVU 1.52) performed by Jose Tai MD at [facility] MGMT MSO Social History: Josselyn reports that she quit smoking about 35 years ago. Her smoking use included cigarettes. She has a 30.00 pack-year smoking history. She has never used smokeless tobacco. She reports that she does not currently use alcohol. She reports that she does not use drugs. Physical Exam: Vital signs and weight : Wt Readings from Last 3 Encounters: 12/31/23 90.9 kg (200 lb 6.4 oz) 12/17/23 89.8 kg (198 lb) 12/03/23 91.3 kg (201 lb 3.2 oz) Temp Readings from Last 3 Encounters: 12/31/23 36.9 ??C (98.4 ??F) (Temporal) 12/17/23 36.5 ??C (97.7 ??F) (Temporal) 12/03/23 36.7 ??C (98.1 ??F) (Temporal) BP Readings from Last 3 Encounters: 12/31/23 146/60 12/17/23 143/51 12/03/23 144/68 Pulse Readings from Last 3 Encounters: 12/31/23 66 12/17/23 67 12/03/23 73 -- ECOG PS: 0 Gen: alert and oriented x 3 HEENT: normocephalic, atraumatic, sclerae anicteric, oropharynx clear, moist mucous membranes Neck: supple, non-tender. No thyromegaly. Breast exam: deferred today Lungs: clear to ausculation bilaterally, no wheezes, [...] inguinal lymphadenopathy Spine palpation: No tenderness noted Labs from 03/10/24 reviewed: BUN 22 Cr 0.9 Ca 9.3 Assessment & Plan: Mrs. Josselyn Garduno is a 78 y.o. female with PMHx significant for but not limited to HTN, bilateral knee replacement 2/2 OA, chronic low back pain 2/2 lumbar canal stenosis and recent diagnosis ofstage I ER positive, IA positive, HER2 negative right breast cancer s/p right partial mastectomy + SLNB on 10/02/2023, reexcision on 10/09/2023, started on adjuvant anastrozole on 10/29/23; Oncotype DX RS= 7; completed adjuvant RT to the right breast (11/19- 12/03/23); who presents today for scheduled follow up. #Stage I RIGHT breast cancer - Clinical stage: cT1b,cN0 - Pathological stage: pT1c,pN0 - Receptor status: ER+ (>90%), IA+ (>90%), HER2 negative (0) - Pathology: Intermediate grade IDC and DCIS - Molecular subtype: Luminal subtype A - Oncotype Dx RS= 7 - Genetics: Genetic testing not available, has referred to [facility] for testing - Staging imaging: Given that Josselyn isn't endorsing symptoms or signs of disease progression at this time, will continue to closely monitor. - Treatment: 09/18/23: Right partial mastectomy + SLNB: 10/09/23: re-excision 10/29/23: Stated anastrozole 11/19-12/03/23: RT to the right breast 12/17/23: resuming adjuvant anastrozole with recommended duration of therapy is at least 5 years Bone health: DEXA scan on 11/14/2023 revealed osteopenia at the femoral neck T-score -1.9. - started on alendronate but she did not tolerate it. Will switch to zometa every 6mos -Will repeat DEXA every 2yrs while on AI, next due 11/2025 -Continue with vitamin D supplementation Recommendations/Plan: -Given worsening arthralgias on anastrozole, will switch to letrozole. She will take one week off of medication entirely and then start letrozole. plan to complete at least 5yrs of AI therapy (12/17/2028) -starting zometa today. Josselyn will let us know of any upcoming dental procedures so that alendronate can be held appropriately. -Continue with calcium and vitamin D -Mammogram ordered by her PCP scheduled 04/10/24 at [facility] Follow-up: 3 months or sooner if there are concerns Counseling: Total time spent: 40 minutes with > 50% spend in discussion of above, [id number] time and coordination of care with the patient today All aspects of the plan were discussed [...] line with non urgent questions and concerns. Erica Yi APRN Medical Oncology [facility] documented in this encounter Plan of Treatment Upcoming Encounters Date Type Department Care Team (Late st Contact Info) Description 09/18/2024 10:30 AM EST Office Visit Hematology/Oncology at [address] [phone] Erica Yi APRN [address] [place] [address] [place] [address] 09/18/2024 11:00 AM EST Infusion Hematology Oncology at [address] [phone] 10/01/2024 3:45 PM EST Office Visit Functional Holiness Program at [facility] [address] [place] [address] Gene Julien Jr., PT 12/23/2024 8:00 AM EST Appointment XRay at [address] [place] [address] River Ochoa MD [address] [place], [place] [address] 01/21/2025 1:00 PM EDT Office Visit Radiation Oncology at [address] [phone] Tory Salazar PA [facility] DR HEMATOLOGY [place] [address] documented as of this encounter Visit Diagnoses Diagnosis Stage I breast cancer in female documented in this encounter Care Teams Teacher Cclc Relationship Specialty Start Date End Date Kay Caldwell MD [address] [place] [address] [address] [place], [place] [address] PCP - General Family Medicine 08/15/22 documented as of this encounter
--- OUTSIDE RECORDS SUMMARY | 2024-09-18 01:17 | XMS_ITS | Encounter Summary ---
Author Organization [facility] [place] [address] Care Team Providers Care Costing Analyst Name Role Phone Kay Caldwell MD Primary Care Provider [phone] Encounter Details Date Type Department Care Team (Latest Contact Info) Description 04/24/2024 Travel Social History Tobacco Use Types Packs/Day Years Used Date Smoking Tobacco: Former Cigarettes 2 15 0 11/11/1973 - 11/11/1988 Smokeless Tobacco: Never Comments:10-15 years quit 35 years ago Alcohol Use Standard Drinks/Week Comments Not Currently 0 (1 standard drink = 0.6 oz pur e alcohol) Recovering 41 years [facility] Utilities Answer Date Recorded In [...] 10:30 AM EST Office Visit Hematology/Oncology at [address] [phone] Erica Yi APRN [address] [place] [address] DR MEDICAL ONCOLOGY [place], [place] [phone] 09/18/2024 11:00 AM EST Infusion Hematology Oncology at [address] [phone] 10/01/2024 3:45 PM EST Office Visit Functional Restorationist Program at [facility] [address] [place] [address] Gene Julien Jr., PT 12/23/2024 8:00 AM EST Appointment XRay at [address] [place] [address] River Ochoa MD [address] [place], [place] [address] 01/21/2025 1:00 PM EDT Office Visit Radiation Oncology at [address] [phone] Tory Salazar PA [facility] DR [place] [address] documented as of this encounter Visit Diagnoses Not on filedocumented in this encounter Care Teams Costing Analyst Relationship Specialty Start Date End Date Kay Caldwell MD [address] [place] [phone] PCP - General Family Medicine 08/15/22 documented as of this encounter
--- OUTSIDE RECORDS SUMMARY | 2024-09-18 01:17 | XMS_ITS | Encounter Summary ---
Author Organization [facility] Address [facility] [place] [address] Care Team Providers Care Three Knife Trimmer Name Role Phone Kay Caldwell MD Primary Care Provider [phone] Encounter Details Date Type Department Care Team (Late st Contact Info) Description 12/03/2023 11:00 AM EST Office Visit Radiation Oncology at [address] [phone] Josh Luna MD [facility] [place] [address] Malignant neoplasm of upper-inner quadrant of right breast in female, estrogen receptor positive Social History Tobacco Use Types Packs/Day Years Used Date Smoking Tobacco: Former Cigarettes 2 15 0 11/11/1973 - 11/11/1988 Smokeless Tobacco: Never Comments:10-15 years quit 35 years ago Alcohol Use Standard Drinks/Week Comments Not Currently 0 (1 standard drink = 0.6 oz pur e alcohol) Recovering 41 years [facility] Utilities Answer Date Recorded In the past 12 months has [employer] electric, gas, oil, or water company threatened [...] Sign Reading Time Taken Comments Blood Pressure 144/68 12/03/2023 10:27 AM EST Pulse 73 12/03/2023 10:27 AM EST Temperature 36.7 ??C (98.1 ??F) 12/03/2023 1 0:03 AM EST Respiratory Rate 16 12/03/2023 10:0 3 AM EST Oxygen Saturation 100% 12/03/2023 10: 03 AM EST Inhaled Oxygen Concentration - - Weight 91.3 kg (201 lb 3.2 oz) 12/03/19 24 10:03 AM EST with boots Height - - Body Mass Index 36.1 10/29/2023 10:00 AM EST documented in this encounter Progress Notes * Josh Luna MD - 12/03/2023 11:00 AM EST Images from the original note were not included. DIAGNOSIS: Breast ca, R, IDC, gr 2, ER+NE+, Her2-, s/p lumpectomy & SNB followed by reexcision,pT1c pN0. CURRENT TREATMENT DOSE: 30 Gy apbi R breast lumpectomy bed ANTICIPATED TOTAL DOSE: 30 Gy apbi R breast lumpectomy bed Current # of xrt received: 5 Anticipated total # of xrt txs: 5 Evaluation of port verification films: Approved. For details, see electronic film record in [employer]. Changes in Medical Condition: Sleeping better since she started taking Tylenol pm. Pain?: None Your Medications Accurate as of December 03, 2023 9:32 AM. If you have any questions, ask your nurse or doctor. Continued medications with new dosing Dose Details Naltrexone (Bulk) 100 % Powder Take 4.5 mg by mouth daily What changed: additional instructions Quantity: 1 g Refills: 3 Continued medications, unchanged Dose Details ACETAMINOPHEN ORAL Take 2 tablets by mouth as needed. 2 tablet Refills: 0 cholecalciferol (Vitamin D3) 50 mcg (2,000 unit) Capsule Take 2,000 Units by mouth daily. 2,000 Units Refills: 0 clobetasoL 0.05 % Ointment Commonly known as: Temovate Apply topically 2 times daily. Refills: 0 diphenhydrAMINE-acetaminophen 25-500 mg Tablet Commonly known as: TYLENOL PM Take by mouth. Refills: 0 HERBAL DRUGS ORAL Take by mouth. [place] Wort, lemon balm, passiflora, leonorus, hypericum Refills: [...] mg daily. 37.5 mg Refills: 0 Physical Exam: Recent Vitals Most Recent Value 12/03/2023 1003 Height: 159 cm (5' 2.6) as of 10/29/2023 -- Weight: 91.3 kg (201 lb 3.2 oz) as of 12/03/2023 91.3 kg (201 lb 3.2 oz) with boots Body Surface Area: None BP: 134/108 Abnormal as of 12/03/2023 134/108 Abnormal Temperature: 36.7 ??C (98.1 ??F) as of 12/03/2023 36.7 ??C (98.1 ??F) Heart Rate: 73 as of 12/03/2023 73 SpO2: 100% as of 12/03/2023 100 % A&Ox3, NAD. Amb stable. Breast: R breast lumpectomy and sentinel node bx scars well healed. Very mild skin erythema, R breast. Imagin10/29/23 Dx'ic Rad Interp Ctsim: Radiation planning CT. Expected postoperative findings inthe right breast and right axilla. Large caliber of the main pulmonary artery can been an indirect sign of pulmonary hypertension. Mild mosaic pattern of the lungs is consistent with diffuse areas of air trapping. Mild to moderate coronary artery atherosclerotic calcification. Performance Status: KPS 100% Response to xrt: As expected. Irradiation Related Symptoms: None. Treatment for Symptom Control: Phytoplex cream. Pain Management: Not needed. Finished RT today. Care of irradiated skin discussed. Can resume herbal sleeping liq day after lastxrt. RTC to see Dr. Grijalva after XRT on 12/31/23. Sleeping better with tylenol pm. Dr. Tomlinson has discussed CT sim findings involving lungs & heart; plan was to fax CT sim report & OTV note to Dr. Caldwell (PCP) & communicate by phone as well. Diastolic BP high today; ? Excited by last dayof Rx. Will repeat her BP in Rad Onc clinic today prior to departure. She is on lisinopril. We discussed getting a home BP cuff to better monitor her BP. If BP still high today and/or at home, suggested that she follow-up with her broach operator to review her antihypertensive regimen. Josh Luna M.D. (covering for Monique Grijalva M.D.) documented in this encounter Plan of Treatment Upcoming Encounters Date Type Department Care Team (Late st Contact Info) Description 09/18/2024 10:30 AM EST Office Visit Hematology/Oncology at [address] [phone] Erica Yi, [address] MEDICAL ONCOLOGY [place], [place] [address] 09/18/2024 11:00 AM EST Infusion Hematology Oncology at [address] [phone] 10/01/2024 3:45 PM EST Office Visit Functional Protestant Program at [address] [place] [address] Gene Julien Jr., PT 12/23/2024 8:00 AM EST Appointment XRay at [address] [place] [address] River Ochoa MD [address] [place] [address] 01/21/2025 1:00 PM EDT Office Visit Radiation Oncology at [address] [phone] Tory Salazar PA [facility] HEMATOLOGY [place] [address] documented as of this encounter Visit Diagnoses Diagnosis Malignant neoplasm of upper-inner quadrant of right breast in female, estrogen receptor positive documented in this encounter Care Teams Three Knife Trimmer Relationship Specialty Start Date End Date Kay Caldwell MD [address] [place] [address] [address] [place], [place] [address] PCP - General Family Medicine 08/15/22 documented as of this encounter
--- OUTSIDE RECORDS SUMMARY | 2024-09-18 01:17 | XMS_ITS | Encounter Summary ---
Author Organization [facility] [place] [address] Care Team Providers Care Capacity Planner Name Role Phone Kay Caldwell MD Primary Care Provider [phone] [phone] Encounter Details Date Type Department Care Team (Late st Contact Info) Description 05/05/2024 Orders [place] [phone] Margarita Morales PA [facility] [place] [address] Social History Tobacco Use Types Packs/Day Years Used Date Smoking Tobacco: Former Cigarettes 2 15 0 11/11/1973 - 11/11/1988 Smokeless Tobacco: Never Comments:10-15 years quit 35 years ago Alcohol Use Standard Drinks/Week Comments Not Currently 0 (1 standard drink = 0.6 oz pur e alcohol) Recovering 41 years [facility] Utilities Answer Date Recorded In the past 12 months has [employer], gas, oil, or water [employer] threatened to shut off services in [...] AM EST Office Visit Hematology/Oncology at [address] [phone] Erica Yi APRN [address] [place] [address] MEDICAL ONCOLOGY [place], [place] [address] 09/18/2024 11:00 AM EST Infusion Hematology Oncology at [address] [phone] 10/01/2024 3:45 PM EST Office Visit Functional Amish Program at [facility] [address] [place] [address] Gene Julien Jr., PT 12/23/2024 8:00 AM EST Appointment XRay at [address] [place] [phone] Rivre Ochoa MD [address] [place] [address] 01/21/2025 1:00 PM EDT Office Visit Radiation Oncology at [address] [phone] Tory Salazar PA [facility] [place] [address] documented as of this encounter Visit Diagnoses Not on filedocumented in this encounter Care Teams Capacity Planner Relationship Specialty Start Date End Date Kay Caldwell MD [address] [place] [address] [address] [place] [address] PCP - General Family Medicine 08/15/22 documented as of this encounter
--- OUTSIDE RECORDS SUMMARY | 2024-09-18 01:18 | XMS_ITS | Encounter Summary ---
Author Organization [facility] [place] [address] Care Team Providers Care Hand Worker Name Role Phone Kay Caldwell MD Primary Care Provider [phone] [phone] Encounter Details Date Type Department Care Team (Late st Contact Info) Description 08/02/2023 9:35 AM EDT Ancillary Procedure Radiology Library at [facility] [place] [address] Lesa Kingston MD [facility] [place] [address] Social History Tobacco Use Types Packs/Day Years Used Date Smoking Tobacco: Former Smokeless Tobacco: Never Sex and Gender Information Value Date Recorded Sex Assigned at Not on file Gender Identity Not on file Sexual Orientation Not on file documented as of this encounter Plan of Treatment Upcoming Encounters Date Type Department Care Team (Late st Contact Info) Description 09/18/2024 10:30 AM EST Office Visit Hematology/Oncology at [address] [phone] Erica Yi APRN [address] [place] [address] DR MEDICAL ONCOLOGY [place], [place] [address] 09/18/2024 11:00 AM EST Infusion Hematology Oncology at [address] [phone] 10/01/2024 3:45 PM EST Office Visit Functional Catholic Program at [facility] [address] [place] [address] Gene Julien Jr., PT 12/23/2024 8:00 AM EST Appointment XRay at [address] [place] [phone] River Ochoa MD [address] [place] [address] 01/21/2025 1:00 PM EDT Office Visit Radiation Oncology at [address] [phone] Tory Salazar PA [facility] HEMATOLOGY [place] [address] documented as of this encounter Procedures Procedure Name Priority Date/Time Associated Diagnosis Comments FILM LIBRARY STORAGE ONLY MAMMO Routine 08/02/2023 9:35 AM EDT documented in this encounter Results * Film Library- Storage Only Mammo (08/02/2023 9:35 AM EDT) 07/24/2024 12:2 6 PM EDT Narrative [facility] 07/24/2024 12:26 PM EDT This exam is auto-finalizing. It's purpose is for storage only. Lesa Kingstno MD IMG FILM LIBRARY OR DERABLES [place], [place] documented in this encounter Visit Diagnoses Not on filedocumented in this encounter Care Teams Hand Worker Relationship Specialty Start Date End Date Kay Caldwell MD [address] [place] [address] [address] [place], [place] [phone] PCP - General Family Medicine 08/15/22 documented as of this encounter
--- OUTSIDE RECORDS SUMMARY | 2024-09-18 01:18 | XMS_ITS | Encounter Summary ---
Author Organization [facility] [place] [address] Care Team Providers Care Sausage Machine Operator Name Role Phone Kay Caldwell MD Primary Care Provider [phone] [phone] Reason for Visit * Reason Comments Back Pain Encounter Details Date Type Department Care Team (Late st Contact Info) Description 10/11/2023 9:00 AM EST Office Visit Functional Anabaptism Program at [facility] [address] [place] [address] Ariana Brock, OT Lumbar spondylosis Social History Tobacco Use Types Packs/Day Years Used Date Smoking Tobacco: Former Cigarettes 2 15 Smokeless Tobacco: Never Comments:10-15 years quit 35 years ago Alcohol Use Standard Drinks/Week Comments Not Currently 0 (1 standard drink = 0.6 oz pur e alcohol) Recovering 41 years [facility] Utilities Answer Date Recorded In the past 12 months has Character Booster, gas, oil, or water [employer] Contin[employer] threatened to shut off services in your home? No 10/06/2023 Overall Financial Resource Strain (CARDIA) Answe r Date Recorded How hard is it for you to pa y for the very basics like food, housing, medical care, and heating? Not hard at all 10/06/2023 Hunger Vital Sign Answer Date Recorded Within the past 12 months, y ou worried that your food would run out before you got the money to buy more. Never true 10/06/20 23 Within the past 12 months, t he food you bought just didn't last and you didn't have money to get more. Never true 10/06/2023 PRAPARE - Transportation Answer Date Re corded In the past 12 months, has l ack of transportation kept you from medical appointments or from getting medications? No 09/12 In the past 12 months, has l ack of transportation kept you from meetings, work, or from getting things needed for daily living? No 10/06/2023 Housing Stability Vital Sign Answer Julián e Recorded In the last 12 months, was t here a time when you were not able to pay the mortgage or rent on time? No 10/06/2023 In the last 12 months, how many places have you lived? 1 10/06/2023 In the last 12 months, was t here a time when you did not have a steady place to sleep or slept in a usp (including now)? No 10/06/2023 Sex and Gender Information Value Date Recorded Sex Assigned at Not on file Gender Identity Not on file Sexual Orientation Not on file documented as of this encounter Progress Notes * Ariana Brock, OT - 10/11/2023 9:00 AM EST FUNCTIONAL JAIN PROGRAM FRP 6 MONTH FOLLOW-UP Dear Josselyn Garduno, Thank you for attending your follow-up visit today. Your chief complaint requiring the FRP was right sided flank, and low back pain. 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 Prior treatments included Lyrica, Gabapentin, Lidocaine Patches, Steroid injections, Cluneal Nerve Injection, physical therapy (Standard and Ángel Therapy), low dose naltrexone, heat, topical creams, CBD, Icy Hot Patches, occasional tylenol. Further diagnostic testing is not planned. Additional medical procedures are not planned. Activity limiting health problems include history of total knee replacements, Osteoarthritis HTN, Anxiety and depression. Since completing the program, she had her second surgery on Tuesday 10/09 and she was cleared to lift from her medical provider. She has not been completing her home exercise program because her provider gave her lifting restriction of 7-10lbs initially. She has her plan for treatment all set up which has limited stress for her. She returns today to see where she is physical capabilities barnes and develop a plan to get back to where she was prior to her surgeries. 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 Met Goal, hasn't gone to Dolly but has been consistent 10 10Met Goal Be able to walk for longer periods (at least 1-2 hours) 2 1 Has been doing some 20 minute walks, needs to incorporate pacing strategies. Same as the end of program, continues to incorporate pacing. 88 Same as last follow up Be able to garden 4 5 Planning to do some gardening this weekend. Met Goal 10 10 Met goal Daily Living (ADL, IADL): Be able to stand to cook a meal, going up and down stairs more easily 3 2Doesn't feel this will be a problem, planning to utilize pacing strategies and change position; Michael working on stairs here in program, will be utilizing stairs as her home gym is in basement. Met Goal for standing to cook a meal. Feels stairs are still a work in progress, however easier than before starting program. 8 8 Met goal; Stairs are not bad but have improved. Be able to do housework including vacuuming 1 1 Planning to do some vacuuming next week. Met Goal -she is vacuuming , mopping 10 10 Met Goal Be able to bend over to reach items off ground, lower shelf 2 1 Finds there is a big improvement inflexibility, thinks this will be no problem. Met Goal 10 10 Met Goal Be able to lift and carry heavier groceries, laundry basket 3 2 Carried in groceries last weekend and thinks carrying laundry will be no problem. Met Goal 10 10 Met goal Total 16 13 Total 68 68 Mean score 2.28 1.85 Mean score 9.71 9.71 Change from Day 1 (??2 point change is clinically significant) 7.43 7.86 Lifting Goal: 45 lbs Current Lifting 50 lbs Current Lifting 55 lbs *Velazco: P=Performance Score S=Satisfaction with Performance Score 5 Month Status: Goals are going well. She was told by her medical provider to not lift after her initial surgery and has not been carrying/lifting items due to a lifting restriction; She reports mostly her pain is non existent. ASSESSMENT of OCCUPATIONAL PERFORMANCE Physical Capacity Test Results: Lifting: (pounds/heart rate) First Day of FRP End of Program 1 Month Follow-Up 3 Month Follow-Up 5 Month Follow-Up Repetitive Floor to Waist / 50/120 55/123 50/130 30/125 Repetitive Waist to Shoulder 20/105 20/117 20/138 15/120 1-Time Maximum 25 55 60 55 35 2-Handed Carry - 50 ft 20 45 50 50 N/a Work Demand Level Light Medium Medium Medium Light The results of this testing must be integrated with clinical findings and other observations to derive a final assessment of work capacity. 1 handed carry of 10 lbs to simulate carrying groceries. She reports some discomfort on the rightside, however understands her limits. Your Current Work/Functional Status: She has been able to meet all of her functional goals and she is very pleased with her progress and ability to engage in her meaningful activities. However recently was unable to complete tasks that require lifting and carrying due to a lifting restriction of 7-10 lbs. Status of Discharge Plans since Last Visit/Follow-up: She has been compliant with her HEP since herlast follow up until recently when she was given a lifting restriction of 7-10 lbs. She voiced she wants to return to where she was. We discussed continuing with her current plan, but modifying to jeep mechanic weights. She is going to start with the lightest weight with the gym routine and free weights;Updated lifting program, see below. Self-Care Program Type of Exercise Specific recommendations Frequency 1 Week Status 1 Month Follow up 3 Month Follow Up Mindfulness/ Relaxation 3 minute breathing & Progressive Muscle Relaxation (Insight Timer Salvador -Willian Mayo) Deep Breathing (In Through the Nose & Out Through the Mouth) Body Scan 2-3x/day Compliant, and using an salvador to explore additional practices Hasn't been doing this as much. Hasn't been doing this as much. Has done some grounding; Breathing is helpful Stretching Mat stretches (mp3 in myDH) 5-7x/wk Compliant Daily Compliant Daily Daily MECHANICAL STRATEGIES: Back: Press Ups from floor/standing backbends against table & Cat/Cow Neck/Shoulder: Chin tucks, then head back and shake Shoulders/Upper Back: Back bend over chair/edge of bed All At least 2x/day Compliant Daily Compliant Daily Daily Cardio/Aerobic/ Endurance (gives endorphine boost - natural pain reliever) Choose from: Walk w/ on Weekends Step routine (mp3 in myDH) Warm Up [place] (mp3 in myDH) Elliptical / TM / Bike at Gym 3-7x/wk For 20-30 min Compliant Treadmill at gym (tries inclines); Walks with ; Bike down stairs (Tues/Thurs/Sat) Treadmill at gym (tries inclines); Walks with ; Bike down stairs (Tues/Thurs/Sat) Strength training Gym Routine/Theraband Routine OR Mat Strengthening Routine OR Crate Lifting (1x/wk) 3-5x/wk Compliant Crate Lifting -Tues/Thurs/Sat Gym- M/W/F Crate Lifting -Tues/Thurs/Sat Gym- M/W/F Your Self-Care Flare-up Plan: Don't Panic, take a deep breath or two Is this the same chronic pain or new pain? If new pain and you are still having trouble after a few days, have it checked out. Check Your Head (What things in life are stressful? What automatic thoughts are you having about the pain?) Try Mechanical Strategies (See Stretching) to balance repeated daily movements (See Self Care: Counter-acting Daily Strains). You may need to do these strategies more often and see if they help Resume exercise routine? Have you stopped doing some of all of your exercises? Start slowly if it's challenging (10 min walk or more if you can.) Use Mindfulness/relaxation strategies to calm the nervous system. Use passive coping tools (ex. heat, ice, massage, etc. - temporary relief) ONLY to help return to active tools (exercise) that will cause lasting change. Assessment: Ms. Garduno returns today for a follow up visit. She has had some health concerns comeup since her last follow up which have required two surgeries and she was given a lifting restriction of 7-10 lbs. Despite this lifting restriction, overall she is doing well. She was most concerned with lifting and getting back on track, so we focus primarily on lifting and carrying. She was able to lift 30 lbs today repetitively, at home she was completing 40 lbs. Per her last visit, she lifting 50 lbs, regressing to 30 lbs today, however she continues to be motivated to stay on track. She continues to have met all her functional goals and implementation of her home exercise program. Overall, Josselyn continues to do well and collaborated with myself on a plan moving forward that she feels comfortable with. She understands that she can call us with any questions/concerns. PLAN: Exercise: Continue with current plan: updated home lifting program including 15- 20 lbs for straightleg lifting, 30 lbs for squat and 8-12 lbs for waist to shoulder, working her way up to the weightsshe was completing prior her surgeries. Next [facility] Follow-up Date: As needed 40 minutes was spent to review status of goals, test physical performance, and plan for continued self care. Cc: Josselyn Bahena Laureen [address] [facility] [address] Kay Caldwell MD [address] [place] [address] [place] [address] documented in this encounter Plan of Treatment Upcoming Encounters Date Type Department Care Team (Late st Contact Info) Description 09/18/2024 10:30 AM EST Office Visit Hematology/Oncology at [address] [phone] Erica Yi APRN [address] [place] [address] [place] [address] 09/18/2024 11:00 AM EST Infusion Hematology Oncology at [address] [phone] 10/01/2024 3:45 PM EST Office Visit Functional Anabaptism Program at [facility] [address] [place] [address] Gene Julien Jr., PT 12/23/2024 8:00 AM EST Appointment XRay at [address] [place] [address] River Ochoa MD [address] [place] [address] 01/21/2025 1:00 PM EDT Office Visit Radiation Oncology at [address] [phone] Tory Salazar PA [facility] DR HEMATOLOGY [place] [address] documented as of this encounter Visit Diagnoses Diagnosis Lumbar spondylosis Lumbosacral spondylosis without myelopathy documented in this encounter Care Teams Sausage Machine Operator Relationship Specialty Start Date End Date Kay Caldwell MD [address] [place] [address] [address] [place] [address] PCP - General Family Medicine 08/15/22 documented as of this encounter
--- OUTSIDE RECORDS SUMMARY | 2024-09-18 01:18 | XMS_ITS | Encounter Summary ---
Author Organization [facility] [place] [address] Care Team Providers Care Entry Level Sales Consultant Name Role Phone Kay Caldwell MD Primary Care Provider [phone] Encounter Details Date Type Department Care Team (Latest Contact Info) Description 10/28/2023 Travel Social History Tobacco Use Types Packs/Day Years Used Date Smoking Tobacco: Former Cigarettes 2 15 Smokeless Tobacco: Never Comments:10-15 years quit 35 years ago Alcohol Use Standard Drinks/Week Comments Not Currently 0 (1 standard drink = 0.6 oz pur e alcohol) Recovering 41 years [facility] Utilities Answer Date Recorded In the [...] AM EST Office Visit Hematology/Oncology at [address] [phone] Erica Yi APRN [address] [place] [address] DR MEDICAL ONCOLOGY [place], [place] [id number] 09/18/2024 11:00 AM EST Infusion Hematology Oncology at [address] [phone] 10/01/2024 3:45 PM EST Office Visit Functional Nondenominational Program at [place] [address] [place] [address] Gene Julien Jr., PT 12/23/2024 8:00 AM EST Appointment XRay at [address] [place] [address] River Ochoa MD [address] [place] [address] 01/21/2025 1:00 PM EDT Office Visit Radiation Oncology at [address] [phone] Tory Salazar PA [facility] [place] [address] documented as of this encounter Visit Diagnoses Not on filedocumented in this encounter Care Teams Entry Level Sales Consultant Relationship Specialty Start Date End Date Kay Caldwell MD [address] [place] [address] [address] [place], [place] [address] PCP - General Family Medicine 08/15/22 documented as of this encounter
--- OUTSIDE RECORDS SUMMARY | 2024-09-18 01:18 | XMS_ITS | Encounter Summary ---
Author Organization [facility] [place] [address] Care Team Providers Care Real Time Trader Name Role Phone Kay Caldwell MD Primary Care Provider [phone] Encounter Details Date Type Department Care Team (Late st Contact Info) Description 08/01/2023 9:30 AM EDT Ancillary Procedure Radiology Library at [facility] [place] [address] Tory Salazar MD [facility] [place] [address] Social History Tobacco Use Types Packs/Day Years [...] 10:30 AM EST Office Visit Hematology/Oncology at [address] [phone] Erica Yi APRN [address] [place] [address] DR MEDICAL ONCOLOGY [place], [place] [address] 09/18/2024 11:00 AM EST Infusion Hematology Oncology at [address] [phone] 10/01/2024 3:45 PM EST Office Visit Functional Nondenominational Program at [facility] [address] [place] [address] Gene Julien Jr., PT 12/23/2024 8:00 AM EST Appointment XRay at [address] [place] [phone] River Ochoa MD [address] [place] [address] 01/21/2025 1:00 PM EDT Office Visit Radiation Oncology at [address] [phone] Tory Salazar PA [facility] [place] [address] documented as of this encounter Procedures Procedure Name Priority Date/Time Associated Diagnosis Comments FILM LIBRARY STORAGE ONLY MAMMO Routine 08/01/2023 9:30 AM EDT documented in this encounter Results * Film Library- Storage Only Mammo (08/01/2023 9:30 AM EDT) 08/16/2024 2:37 AM EDT Narrative [facility] - 08/16/2024 2:37 AM EDT This exam is auto-finalizing. It's purpose is for storage only. Tory Salazar MD IMG FILM LIBRARY ORD ERABLES [place], [place] documented in this encounter Visit Diagnoses Not on filedocumented in this encounter Care Teams Real Time Trader Relationship Specialty Start Date End Date Kay Caldwell MD [address] [place] [address] [place] [address] PCP - General Family Medicine 08/15/22 documented as of this encounter
--- OUTSIDE RECORDS SUMMARY | 2024-09-18 01:18 | XMS_ITS | Encounter Summary ---
Author Organization [facility] [place] [address] Care Team Providers Care Retort Pre Cooker Name Role Phone Kay Caldwell MD Primary Care Provider [phone] Encounter Details Date Type Department Care Team (Late st Contact Info) Description 08/02/2023 9:45 AM EDT Ancillary Procedure Radiology Library at [facility] [place] [address] Lesa Kingston MD [facility] [place] [address] Social History Tobacco Use Types Packs/Day Years [...] AM EST Office Visit Hematology/Oncology at [address] [phone] Erica Yi APRN [address] [place] [address] DR MEDICAL ONCOLOGY [place], [place] [address] 09/18/2024 11:00 AM EST Infusion Hematology Oncology at [address] [phone] 10/01/2024 3:45 PM EST Office Visit Functional Yazidism Program at [facility] [address] [place] [address] Gene Julien Jr., PT 12/23/2024 8:00 AM EST Appointment XRay at [address] [place] [phone] River Ochoa MD [address] [place] [address] 01/21/2025 1:00 PM EDT Office Visit Radiation Oncology at [address] [phone] Tory Salazar PA [facility] [place] [address] documented as of this encounter Procedures Procedure Name Priority Date/Time Associated Diagnosis Comments FILM LIBRARY STORAGE ONLY ULTRASOUND STUDY Routine 08/02/2023 9:45 AM EDT documented in this encounter Results * Film Library- Storage Only Ultrasound Study (08/02/2023 9:45 AM EDT) 07/24/2024 12:2 6 PM EDT Narrative [facility] - 07/24/2024 12:26 PM EDT This exam is auto-finalizing. It's purpose is for storage only. Lesa Kingston MD IMG FILM LIBRARY OR DERABLES [place], [place] documented in this encounter Visit Diagnoses Not on filedocumented in this encounter Care Teams Retort Pre Cooker Relationship Specialty Start Date End Date Kay Caldwell MD [address] [place] [address] [address] [place], [place] [address] PCP - General Family Medicine 08/15/22 documented as of this encounter
--- OUTSIDE RECORDS SUMMARY | 2024-09-18 01:18 | XMS_ITS | Encounter Summary ---
[place] [address] Care Team Providers Care Garnishment Specialist Name Role Phone Kay Caldwell MD Primary Care Provider [phone] Encounter Details Date Type Department Care Team (Late st Contact Info) Description 09/18/2023 Interpretation Only [address] [phone] Arthur Ocasio V, [employer] [place] [address] Social History Tobacco Use Types Packs/Day Years [...] AM EST Office Visit Hematology/Oncology at [address] [phone] Erica Yi APRN [address] [place] [address] MEDICAL ONCOLOGY [place], [place] [id number] 09/18/2024 11:00 AM EST Infusion Hematology Oncology at [address] [phone] 10/01/2024 3:45 PM EST Office Visit Functional Jehovah'S Witness Program at [address] [place] [address] Gene Julien Jr., PT 12/23/2024 8:00 AM EST Appointment XRay at [address] [place] [address] River Ochoa MD [address] [place] [address] 01/21/2025 1:00 PM EDT Office Visit Radiation Oncology at [address] [phone] Tory Salazar PA [facility] DR HEMATOLOGY [place] [address] Pending Results Name Type Priority Associated Diagnoses Date /Time US GUIDED NEEDLE PLACEMENT Imaging Routine 09/18/2023 12:06 PM EST documented as of this encounter Visit Diagnoses Not on filedocumented in this encounter Care Teams Garnishment Specialist Relationship Specialty Start Date End Date Kay Caldwell MD [address] [place] [address] [address] [place] [address] PCP - General Family Medicine 08/15/22 documented as of this encounter
--- OUTSIDE RECORDS SUMMARY | 2024-09-18 01:18 | XMS_ITS | Encounter Summary ---
Author Organization [facility] [place] [address] Care Team Providers Care Chemistry Physics Teacher Name Role Phone Kay Caldwell MD Primary Care Provider [phone] Reason for Visit * Reason Comments Back Pain * Consultation (Routine) - Closed Specialty Diagnoses / Procedures Referred By Contac t Referred To [facility] Diagnoses Spondylosis of lumbar region without myelopathy or radiculopathy Procedures NH GROUP THERAPEUTIC PROCEDURES NH GROUP THERAPEUTIC PROCEDURES HC OCCUPATIONAL THERAPY EVALUATION MODERATE COMPLEXITY PRO ESTABLISHED PATIENT LEVEL 4 HC ESTABLISHED PATIENT LEVEL 4 PRO ESTABLISHED PATIENT LEVEL 3 HC ESTABLISHED PATIENT LEVEL 3 PRO FUNCTIONAL ADVENT PROGRAM LECTURE, GROUP HC THERAPEUTIC ACTIVITY EA 15 MIN HC PHYSICAL THERAPY RE-EVALUATION EST PLAN CARE HC PHYSICAL PERFORMANCE TEST W REPORT 15 MIN Jazmín Santiago, [facility] [place] [address] [facility] Fr [address] [place] [address] Referral ID Status Reason Start Date Expiration Date Visits Requested Visits Authorized [id number] Closed Functional Restorative Program 03/25/2023 03/24/2024 52 52 Encounter Details Date Type Department Care Team (Late st Contact Info) Description 06/06/2023 8:00 AM EDT Office Visit Functional Muslim Program at [facility] [address] [place] [address] Ariana Brock, OT Lumbar spondylosis Social History Tobacco Use Types Packs/Day Years Used Date Smoking Tobacco: Former Smokeless Tobacco: Never Sex and Gender Information Value Date Recorded Sex Assigned at Not on file Gender Identity Not on file Sexual Orientation Not on file documented as of this encounter Progress Notes * Jason Brockia Sharron, OT - 06/06/2023 8:00 AM EDT FUNCTIONAL ADVENT PROGRAM FRP 1 MONTH FOLLOW-UP Dear Josselyn Garduno, Thank you [...] Anxiety and depression. Since completing the program, everything is going extremely well. She has experienced one major pain flare up but utilized her flare up plan and completed stretches. She has been compliant with her home exercise plan. She will be going away to [place] mid August to beginning of September. 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 Results of the Touch Pad Questionnaires You Filled out: 04/15/2023 05/09/2023 06/03/2023 FR DISCHARGE SUMMARY QUESTIONNAIRE TOTALS INSOMNIA SEVERITY INDEX 3 (No clinically significant insomnia) 3 (No clinically significant insomnia) 0 (No clinically significant insomnia) Total PHQ-9 8 (Mild Depression) 3 (Minimal Depression) 0 (No Depression) Central Sensitization Inventory 39 (Mild) 22 (Subclinical) 12 (Subclinical) PDQ Functional Condition 12 1 0 PDQ Psychosocial Component 5 2 0 PDQ Total Score 17 (Mild/moderate) 3 (Mild/moderate) 0 (Mild/moderate) ROSALINE-7 6 (Mild Anxiety) 3 (Minimal Anxiety) 1 (Minimal Anxiety) Facs Scoring 25 (Mild) 0 (Subclinical) 0 (Subclinical) Visual Analog Scale (VAS) for Pain Score 2.57 0.91 1.05 Pain over the last week rating score 2.05 1.51 1.08 Title Endurance and Flexibility Test Results: Reported Tolerance (minutes) First Day of FRP: End of FRP: 1 Month Follow-up: 3 Month Follow-up (optional): Sittin 120 120 Standin 120 120 Walkin 30 30 Flexibility (degrees): Neck: First Day of FRP: End of FRP: 1 Month Follow-up: 3 Month Follow-up (optional): Bending Forward: 60 75 75 Bending Back: 45 65 65 Turning Right: 45 70 70 Turning Left: 45 65 70 Tilting Right: 25 30 40 Tilting Left: 25 35 35 Low Back: First Day of FRP: End of FRP: 1 Month Follow-up: 3 Month Follow-up (optional): Bending Forward: 55 70 90 Bending Back: 10 25 35 Straight Leg Raise Right: 65 90 85 Straight Leg Raise Left: 65 90 85 Straight Leg Raise Pelvic: Treadmill First Day of FRP: End of FRP: 1 Month Follow-up: 3 Month Follow-up (optional): MET Level: Heart Rate: MET Level: Heart Rate: MET Level: Heart Rate: MET Level: Heart Rate: Treadmill Endurance: 7 132 7 114 7 140 Reason for Stopping (if applicable): Short of breath (hands on rails) Short of Breath Short of Breath Sunburst Occupational Performance Measure Results - 3 Month Occupational Goals: Occupational Goals FRP Day 1 P S Current Status: End of Program Current Status: 1-month Follow-up P S Work/Productive Activity: None Identified - - None None - - Recreation/Leisure: Be able to resume Dolly class and exercise routine 1 1 Home set up is ready to go; going to try to resume Dolly class. Met Goal, hasn't gone to Dolly but has been consistent 10 10 Be able to walk for longer periods (at least 1-2 hours) 2 1 Has been doing some 20 minute walks, needs to incorporate pacing strategies. Same as the end of program, continues to incorporate pacing. 88 Be able to garden 4 5 Planning to do some gardening this weekend. Met Goal 10 10 Daily Living (ADL, IADL): Be able to [...] easier than before starting program. 8 8 Be able to do housework including vacuuming 1 1 Planning to do some vacuuming next week. Met Goal -she is vacuuming , mopping 10 10 Be able to bend over to reach items off ground, lower shelf 2 1 Finds there is a big improvement inflexibility, thinks this will be no problem. Met Goal 10 10 Be able to lift and carry heavier groceries, laundry basket 3 2 Carried in groceries last weekend and thinks carrying laundry will be no problem. Met Goal 10 10 Total 16 13 Total 68 68 Mean score 2.28 1.85 Mean score 9.71 9.71 Change from Day 1 (??2 point change is clinically significant) 7.43 7.86 Lifting Goal: 45 lbs Current Lifting 50 lbs Current Lifting 55 lbs *Velazco: P=Performance Score S=Satisfaction with Performance Score ASSESSMENT of OCCUPATIONAL PERFORMANCE Physical Capacity Test Results: Lifting: (pounds/heart rate) First Day of FRP End of Program 1 Month Follow-Up 3 Month Follow-Up Repetitive Floor to Waist 50/120 55/123 Repetitive Waist to Shoulder 20/105 20/117 1-Time Maximum 25 55 60 2-Handed Carry - 50 ft 20 45 50 Work Demand Level Light Medium Medium The results of this testing must be integrated with clinical findings and other observations to derive a final assessment of work capacity. Your Current Work/Functional Status: Ms. Garduno has been able to meet all of her functional goalsand she is very pleased with her progress and ability to engage in her meaningful activities. Status of Discharge Plans since Last Visit/Follow-up: Ms. Garduno has been compliant with her homeexercise program. She has been going to the gym 3x/week for strengthening and 3x/week at home with crate lifting. She typically does 15 minutes of cardio and then strengthening. Self-Care Program Type of Exercise Specific recommendations Frequency 1 Week Status 1 Month Follow up Mindfulness/ Relaxation 3 minute breathing & Progressive Muscle Relaxation (Insight Timer Salvador -Willian Mayo) Deep Breathing (In Through the Nose & Out Through the Mouth) Body Scan 2-3x/day Compliant, and using an salvador to explore additional practices Hasn't been doing this as much. Stretching Mat stretches (mp3 in myDH) 5-7x/wk Compliant Daily Compliant Daily MECHANICAL STRATEGIES: Back: Press Ups from floor/standing backbends against table & Cat/Cow Neck/Shoulder: Chin tucks, then head back and shake Shoulders/Upper Back: Back bend over chair/edge of bed All At least 2x/day Compliant Daily Compliant Daily Cardio/Aerobic/ Endurance (gives endorphine boost - natural pain reliever) Choose from: Walk w/ on Weekends Step routine (mp3 in myDH) Warm Up [place] (mp3 in myD) Elliptical / TM / Bike at Gym 3-7x/wk For 20-30 min Compliant Treadmill at gym (tries inclines); Walks with ; Bike down stairs (Tues/Thurs/Sat) Strength training Gym Routine/Theraband Routine OR Mat Strengthening Routine OR Crate Lifting (1x/wk) 3-5x/wk Compliant Crate Lifting -Tues/Thurs/Sat Gym- M/W/F Your Self-Care [...] will cause lasting change. Assessment: Ms. Garduno has maintained/improved on her physical capacities since the end of program testing, and has met all her functional goals. She has successfully implemented her self care homeprogram and reports being consistent in following it. Straight Leg Range of motion seemed to decrease, but that is due to discrepancy with measurements between therapists. Overall, Josselyn is pleased with her progress and ability to engage in her meaningful activities, improving her overall quality of life. She is going to [place] and was concerned with regressing in terms of her HEP, so we discussed options to utilize when she goes. She will plan to return for a 3 month follow up and that will be scheduled once the schedule is available. PLAN: Exercise: Continue with current plan. We discussed taking her theraband on her trip. Next FR Follow-up Date: 3 Month Follow up to be scheduled 60 minutes was spent to review status of goals, test physical performance, and plan for continued self care. Cc: Josselyn Bahena Laureen [address] [facility] [place] [address] Kay Caldwell MD [address] [place] [address] [place] [address] documented in this encounter Plan of Treatment Upcoming Encounters Date Type Department Care Team (Late st Contact Info) Description 09/18/2024 10:30 AM EST Office Visit Hematology/Oncology at [address] [phone] Y[address] MEDICAL ONCOLOGY [place], [place] [address] 09/18/2024 11:00 AM EST Infusion Hematology Oncology at [address] [address] 10/01/2024 3:45 PM EST Office Visit Functional Muslim Program at [place] [address] [place] [address] Gene Julien Jr., PT 12/23/2024 8:00 AM EST Appointment XRay at [address] [place] [address] River Ochoa MD [address] [place] [address] 01/21/2025 1:00 PM EDT Office Visit Radiation Oncology at [address] [phone] Tory Salazar PA [facility] [place] [address] documented as of this encounter Procedures Procedure Name Priority Date/Time Associated Diagnosis Comments OT PLAN OF CARE CERT/RE-CERT Routine 06/06/2023 8:56 AM EDT Lumbar spondylosis documented in this encounter Visit Diagnoses Diagnosis Lumbar spondylosis Lumbosacral spondylosis without myelopathy documented in this encounter Care Teams Chemistry Physics Teacher Relationship Specialty Start Date End Date Kay Caldwell MD [address] [place] [address] [address] [place] [address] PCP - General Family Medicine 08/15/22 documented as of this encounter
--- OUTSIDE RECORDS SUMMARY | 2024-09-18 01:18 | XMS_ITS | Encounter Summary ---
Author Organization [facility] [place] [address] Care Team Providers Care Sales And In Home Delivery Specialist Name Role Phone Kay Caldwell MD Primary Care Provider [phone] Encounter Details Date Type Department Care Team (Late st Contact Info) Description 08/09/2023 Interpretation Only Radiology Library at [facility] [place] [place] [phone] Lesa Kingston MD [facility] [place] [address] Social History Tobacco Use Types Packs/Day Years Used Date Smoking Tobacco: Former Smokeless Tobacco: Never [facility] Utilities Answer Date Recorded In [...] 10:30 AM EST Office Visit Hematology/Oncology at [address] [phone] [address] Yi [address] MEDICAL ONCOLOGY [place], [place] [phone] 09/18/2024 11:00 AM EST Infusion Hematology Oncology at [address] [phone] 10/01/2024 3:45 PM EST Office Visit Functional Hinduism Program at [facility] [address] [place] [address] Gene Julien Jr., PT 12/23/2024 8:00 AM EST Appointment XRay at [address] [place] [address] River Ochoa MD [address] [place], [place] [address] 01/21/2025 1:00 PM EDT Office Visit Radiation Oncology at [address] [phone] Tory Salazar PA [facility] HEMATOLOG[place] [address] documented as of this encounter Procedures Procedure Name Priority Date/Time Associated Diagnosis Comments FILM LIBRARY STORAGE ONLY MAMMO Routine 08/09/2023 9:25 AM EDT documented in this encounter Results * Film Library- Storage Only Mammo (08/09/2023 9:25 AM EDT) 07/24/2024 12:2 6 PM EDT Narrative [facility] - 07/24/2024 12:26 PM EDT This exam is auto-finalizing. It's purpose is for storage only. Lesa Kingston MD IMG FILM LIBRARY OR DERABLES [place], [place] documented in this encounter Visit Diagnoses Not on filedocumented in this encounter Care Teams Sales And In Home Delivery Specialist Relationship Specialty Start Date End Date Kay Caldwell MD [address] [place] [address] [place] [address] PCP - General Family Medicine 08/15/22 documented as of this encounter
--- OUTSIDE RECORDS SUMMARY | 2024-09-18 01:18 | XMS_ITS | Encounter Summary ---
Author Organization [facility] Address [facility] [place] [address] Care Team Providers Care Creel Selector Name Role Phone Kay Caldwell MD Primary Care Provider [phone] Encounter Details Date Type Department Care Team (Late st Contact Info) Description 11/19/2023 10:30 AM EST Office Visit Radiation Oncology at [address] [phone] Monique Grijalva MD [facility] [place] [address] Malignant neoplasm of upper-inner quadrant of right breast in female, estrogen receptor positive Social History Tobacco Use Types Packs/Day Years Used Date Smoking Tobacco: Former Cigarettes 2 15 0 11/11/1973 - 11/11/1988 Smokeless Tobacco: Never Comments:10-15 years quit 35 years ago Alcohol Use Standard Drinks/Week Comments Not Currently 0 (1 standard drink = 0.6 oz pur e alcohol) Recovering 41 years [facility] Utilities Answer Date Recorded In the past 12 months has [employer] electric, gas, oil, or water company threatened [...] Sign Reading Time Taken Comments Blood Pressure - - Pulse 80 11/19/2023 9:00 AM EST Temperature 37 ??C (98.6 ??F) 11/19/2023 9:0 0 AM EST Respiratory Rate 18 11/19/2023 9:00 AM EST Oxygen Saturation 100% 11/19/2023 9:0 0 AM EST Inhaled Oxygen Concentration - - Weight 90.5 kg (199 lb 9.6 oz) 11/19/19 9:00 AM EST with shoes Height - - Body Mass Index 35.81 10/29/2023 10:00 AM EST documented in this encounter Patient Instructions * Patient Instructions* Monique Grijalva MD - 11/19/2023 10:30 AM EST Your last radiotherapy will be on 12/03/23. Continue phytoplex cream to irradiated area. Do not use a straight/regular razor on your right underarm. An electric razor is ok. Do not expose the irradiated area to sun, cover it with clothing. Do not swim in chlorinated water. Saltwater or freshwater is ok. Do not expose irradiated area to hot tub water. Hot bath/shower is ok. Someone will contact you to schedule followup in 1 - 2 months. You may resume herbal liquid for sleeping day after last radiotherapy. Followup T., 12/31/[address] @ [address] Caldwell will be sent information regarding heart & lung findings on 10/29/23 Ctsimulation. documented in this encounter Progress Notes * Monique Grijalva MD - 11/19/2023 10:30 AM EST Images from the original note were not included. DIAGNOSIS: Breast ca, R, IDC, gr 2, ER+WV+, Her2-, s/p lumpectomy & SNB followed by reexcision,pT1c pN0. CURRENT TREATMENT DOSE: 6 Gy apbi R breast lumpectomy bed ANTICIPATED TOTAL DOSE: 30 Gy apbi R breast lumpectomy bed Current # of xrt received: 1 Anticipated total # of xrt txs: 5 Evaluation of port verification films: Approved. For details, see electronic film record in [employer]. Changes in Medical Condition: Difficulty sleeping since stopped herbal sleeping liquid as advised during xrt. Accompanied by . Pain?: None Your Medications Accurate as of November 19, 2023 10:57 AM. If you have any questions, ask your nurse or doctor. Continued medications with new dosing Dose Details Naltrexone (Bulk) 100 % Powder Take 4.5 mg by mouth daily What changed: additional instructions Quantity: 1 g Refills: 3 Continued medications, unchanged Dose Details ACETAMINOPHEN ORAL Take 2 tablets by mouth as needed. 2 tablet Refills: 0 anastrozole 1 mg tablet Commonly known as: Arimidex Take 1 tablet by mouth daily for 30 days. 1 mg Quantity: 30 tablet Refills: 11 cholecalciferol (Vitamin D3) 50 mcg (2,000 unit) Capsule Take 2,000 Units by mouth daily. 2,000 Units Refills: 0 clobetasoL 0.05 % Ointment Commonly known as: Temovate Apply topically 2 times daily. Refills: 0 HERBAL DRUGS ORAL Take by mouth. [place] Wort, lemon balm, passiflora, leonorus, hypericum Refills: [...] daily. 37.5 mg Refills: 0 Physical Exam: Pulse 80 Temp 37 ??C (98.6 ??F) (Temporal) Resp 18 Wt 90.5 kg (199 lb 9.6 oz) Comment: with shoes SpO2 100% BMI 35.81 kg/m?? A&Ox3, NAD. Amb stable. Imagin10/29/23 Dx'ic Rad Interp Ctsim: Radiation planning [...] Control: Phytoplex cream. Pain Management: Not needed. Recommendation on Continuing Course of xrt: Continue. Discussed drinking chamomile tea, taking warmbath, tylenol pm or benadryl @ bedtime, white noise sound machine to help sleep. Discussed Ctsim findings involving lungs & heart; will fax Ctsim report & this note to Dr. Caldwell (PCP) &communicate by phone as well. Completes xrt 12/03/23. Care of irradiated skin discussed. Can resume h erbal sleeping liq day after last xrt. Rtc 12/31/23. documented in this encounter Plan of Treatment Upcoming Encounters Date Type Department Care Team (Late st Contact Info) Description 09/18/2024 10:30 AM EST Office Visit Hematology/Oncology at [address] [phone] Erica Yi APRN [address] [place] [address] DR MEDICAL ONCOLOGY [place], [place] [address] 09/18/2024 11:00 AM EST Infusion Hematology Oncology at [address] [phone] 10/01/2024 3:45 PM EST Office Visit Functional Caodaism Program at [address] [place] [address] Gene Julien Jr., PT 12/23/2024 8:00 AM EST Appointment XRay at [address] [place] [address] River Ochoa MD [address] [place], [place] [address] 01/21/2025 1:00 PM EDT Office Visit Radiation Oncology at [address] [phone] Tory Salazar PA [facility] DR HEMATOLOGY [place] [address] documented as of this encounter Visit Diagnoses Diagnosis Malignant neoplasm of upper-inner quadrant of right breast in female, estrogen receptor positive documented in this encounter Care Teams Creel Selector Relationship Specialty Start Date End Date Kay Caldwell MD [address] [place] [address] [address] [place], [place] [address] PCP - General Family Medicine 08/15/22 documented as of this encounter
--- OUTSIDE RECORDS SUMMARY | 2024-09-18 01:18 | XMS_ITS | Encounter Summary ---
Author Organization [facility] [place] [address] Care Team Providers Care Field Artillery Fire Control Man Name Role Phone Kay Caldwell MD Primary Care Provider [phone] Encounter Details Date Type Department Care Team (Latest Contact Info) Description 11/21/2023 Travel Social History Tobacco Use Types Packs/Day Years Used Date Smoking Tobacco: Former Cigarettes 2 15 0 11/11/1973 - 11/11/1988 Smokeless Tobacco: Never Comments:10-15 years quit 35 years ago Alcohol Use Standard Drinks/Week Comments Not Currently 0 (1 standard drink = 0.6 oz pur e alcohol) Recovering 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 [facility] Utilities Answer Date Recorded In the [...] AM EST Office Visit Hematology/Oncology at [address] [phone] Erica Yi APRN [address] [place] [address] DR MEDICAL ONCOLOGY [place], [place] [phone] 09/18/2024 11:00 AM EST Infusion Hematology Oncology at [address] [phone] 10/01/2024 3:45 PM EST Office Visit Functional Worship Program at [facility] [address] [place] [address] Gene Julien Jr., PT 12/23/2024 8:00 AM EST Appointment XRay at [address] [place] [phone] River Ochoa MD [address] [place], [place] [address] 01/21/2025 1:00 PM EDT Office Visit Radiation Oncology at [address] [phone] Tory Salazar PA [facility] DR HEMATOLOGY [place] [address] documented as of this encounter Visit Diagnoses Not on filedocumented in this encounter Care Teams Field Artillery Fire Control Man Relationship Specialty Start Date End Date Kay Caldwell MD [address] [place] [address] PCP - General Family Medicine 08/15/22 documented as of this encounter
--- OUTSIDE RECORDS SUMMARY | 2024-09-18 01:18 | XMS_ITS | Encounter Summary ---
Author Organization [facility] [place] [address] Care Team Providers Care Field Support Rep Name Role Phone Kay Caldwell MD Primary Care Provider [phone] Reason for Referral * Consultation (Routine) - Closed Specialty Diagnoses / Procedures Referred By Contac t Referred To Contact Radiation Oncology Diagnoses Malignant neoplasm of upper-inner quadrant of right breast in female, estrogen receptor positive Procedures Simulation for Radiation Therapy Planning Monique Grijalva MD [facility] [place] [address] [facility] Rad Onc Office [address] [place] [phone] Referral ID Status Reason Start Date Expiration Date V isits Requested Visits Authorized [id number] Closed Consult, Test & Treat 10/29/2023 12/30/2023 5 5 * Consultation (Routine) - Closed Specialty Diagnoses / Procedures Referred By Contac t Referred To Contact Hematology and Oncology Diagnoses Malignant neoplasm of upper-inner quadrant of right breast in female, estrogen receptor positive Monique Grijalva MD [facility] [place] [address] [facility] Hem Onc Office [address] [place] [phone] Referral ID Status Reason Start Date Expiration Date V isits Requested Visits Authorized [id number] Closed Consult, Test & Treat 10/07/2023 10/06/2024 1 1 Reason for Visit * Reason Comments Radiation Consult * Consultation (Routine) - Closed Specialty Diagnoses / Procedures Referred By Contac t Referred To Contact Radiation Oncology Diagnoses Malignant neoplasm of breast (female) Dmitri Schultz MD [address] [place] [phone] Monique Grijalva MD [facility] [place] [address] Referral ID Status Reason Start Date Expiration Date V isits Requested Visits Authorized [id number] Closed Evaluate and Treat 08/26/2023 08/25/2024 1 1 Encounter Details Date Type Department Care Team (Late st Contact Info) Description 10/07/2023 10:00 AM EST Office Visit Radiation Oncology at [address] [phone] Monique Grijalva MD [facility] [place] [address] Malignant neoplasm of upper-inner quadrant of right breast in female, estrogen receptor positive Social History Tobacco Use Types Packs/Day Years Used Date Smoking Tobacco: Former Cigarettes 2 15 Smokeless Tobacco: Never Tobacco Cessation:Counseling Given: Not Answered Comments:10-15 years quit 35 years ago Alcohol Use Standard Drinks/Week Comments Not Currently 0 (1 standard drink = 0.6 oz pur e alcohol) Recovering 41 years [facility] Utilities Answer Date Recorded In the [...] money to buy more. Never true 10/06/20 Within the past 12 months, t he [...] in a senior living (including now)? No 10/06/2023 Sex and Gender Information Value Date Recorded Sex Assigned at Not on file Gender Identity Not on file Sexual Orientation Not on file documented as of this encounter Last Filed Vital Signs Vital Sign Reading Time Taken Comments Blood Pressure - - Pulse - - Temperature 37 ??C (98.6 ??F) 10/07/2023 9:5 4 AM EST Respiratory Rate 18 10/07/2023 9:54 AM EST Oxygen Saturation 100% 10/07/2023 9:5 4 AM EST Inhaled Oxygen Concentration - - Weight 90.4 kg (199 lb 6.4 oz) 10/07/20 9:54 AM EST with boots Height - - Body Mass Index 36.47 06/06/2023 9:35 AM EDT documented in this encounter Patient Instructions * Patient Instructions* Monique Grijalva MD - 10/07/2023 10:00 AM EST Someone will call you to schedule consultation with Hematology-Oncology in [facility] regarding hormonal treatment. If Dr. Schultz recommends a reexcision & you decide to proceed with radiotherapy, call to schedule Ctsimulation to be done 2-4 weeks after surgery. documented in this encounter Progress Notes * Izzy Livingston RN - 10/07/2023 10:00 AM EST RADIATION ONCOLOGY NURSING INITIAL NURSING ASSESSMENT IDENTIFICATION: Josselyn Garduno is a 78 y.o. year-old female with right breast cancer. 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 Family History of Cancer: None REVIEW OF SYSTEMS: Review of Systems - Oncology 10/06/2023 7:53 AM REVIEW OF SYSTEMS Constitutional None of the above Ear / nose / throat / mouth None of the above Eyes Dry eyes Respiratory None of the above Cardiovascular None of the above Gastrointestinal None of the above Skin, hair None of the above Musculoskeletal None of the above Neurological None of the above Hematologic / Lymphatic None of the above Genitourinary None of the above IN THE PAST 12 MONTHS HAVE YOU: Fallen more than one time? No Injured yourself as result of the fall? N/A Experienced difficulty with walking/problems with balance? No Do you use any assistive devices? No Any history of collagen vascular diseases:No Any Implanted Devices/Hardware: Yes Bilateral knee replacements, bladder sling about 10 years ago. If yes please put alert in ARIA patient summary Prior Radiotherapy: No Prior Chemotherapy: No Prior Hormone Therapy: Yes Premarin, control years ago LEARNING ASSESSMENT REVIEWED: Yes ADVANCED DIRECTIVE: PAIN ASSESSMENT: 2 out of 10 *eD-H Adult PCS Flow Sheet if 4 or above SOCIAL ASSESSMENT: See EDH social assessment information entered. Support Systems: Here today with Luis Manuel Barriers to treatment: None identified. Lives in [place], [place] Referrals/Interventions: FORKLIFT DRIVER per routine RADIATION SPECIFIC TEACHING: [facility] Radiation Therapy and You Site specific teaching : Breast teaching to be done by nursing on day of simulation. Other: PLAN: Per Dr. Grijalva * Monique Grijalva MD - 10/07/2023 10:00 AM EST Images from the original note were not included. CC: Referred by Dr. Schultz for eval for xrt for breast ca. HPI: Josselyn is a 78 y/o f who presented w/R breast abnly on screening mmg. 08/01/23 B screening mmg: R breast abnlty @ 3:00. 08/02/23 dx'ic R mmg & R breast US: Abnlty UIQ. 08/09/23 US guided core needle bx R breast @ 1:30. Path: IDC, ER+WY+, Her2-. Genetic testing [address] [facility], sent to , neg. 09/18/23 R breast lumpectomy & SNB. Path: IDC, gr 2, 13 mm, DCIS, anterior resection margin pos for invasive ca along a broad front, 1 sentinel lymph node (neg, 0/), pT1c pN0. 10/01/23 US R axilla: Right axillary hematoma/seroma. S: Healing well. Mild swelling R axilla. No hand/arm swelling. ROM arms around shoulders ok. Energylevel ok. Appt w/Dr. Schultz tomorrow. Accompanied by . Past Medical History: Diagnosis Date Breast cancer HTN (hypertension) No lupus/scleroderma. No prior xrt. Diverticulitis Spinal foraminal stenosis Mitral stenosis Past Surgical History: Procedure Laterality Date PRO INJ, FORAMEN, L/S, 1 LEVEL Right 10/09/2022 INJECTION, ANESTHETIC AGENT AND/OR STEROID, TRANSFORAMINAL EPIDURAL, LUMBAR OR SACRAL, SINGLE LEVEL(WRVU 1.9) performed by Cosmo Blanco MD at [facility] PAIN MGMT MSO PRO INJ, FORAMEN, L/S, 1 LEVEL Right 11/09/2022 INJECTION, ANESTHETIC AGENT AND/OR STEROID, TRANSFORAMINAL EPIDURAL, LUMBAR OR SACRAL, SINGLE LEVEL(WRVU 1.9) performed by Jose Tai MD at [facility] PAIN MGMT MSO PRO INJ, FORAMEN, L/S, ADDL LEVELS Right 10/09/2022 INJECTION, ANESTHETIC AGENT AND/OR STEROID, TRANSFORAMINAL EPIDURAL, LUMBAR OR SACRAL, EACH ADDITIONAL LEVEL (WRVU 1) performed by Cosmo Blanco MD at [facility] PAIN MGMT MSO PRO INJECTION DX/THER SBST INTRLMNR LMBR/SAC W/IMG GDN Right 11/21/2022 INJECTION, EPIDURAL, LUMBAR OR SACRAL (CAUDAL), WITH IMAGING GUIDANCE (WRVU 1.8) performed by Jose Tai MD at [facility] PAIN MGMT MSO PRO INJECTION PV FACET JOINT LUMBAR/SACRAL SINGLE LEVEL Right 12/11/2022 INJECTION, FACET JOINT, W\FLUORO, LUMBAR, SINGLE (WRVU 1.52) performed by Jose Tai MD at [facility] PAIN MGMT MSO Your Medications Accurate as of October 07, 2023 10:05 AM. If you have any questions, ask [...] 0 HERBAL DRUGS ORAL Take by mouth. [place] Wort, lemon balm, passiflora, leonorus, hypericum Refills: [...] capsule Commonly known as: PriLOSEC Refills: 0 Premarin 0.625 mg/gram Cream Premarin 0.625 mg/gram vaginal cream Generic drug: estrogens (conjugated) Refills: 0 simvastatin 20 mg tablet Commonly known as: Zocor nightly. Refills: 0 theanine 100 mg Tablet, Chewable Take 200 mg by mouth. 200 mg Refills: 0 UNABLE TO FIND Take by mouth daily. Nitric oxide supplements Refills: 0 venlafaxine 25 mg tablet Commonly known as: Effexor 37.5 mg 2 times daily. 37.5 mg Refills: 0 Fhx: + ca, breast in 2 aunts. Lymphoma in fa. P&Shx: Stopped smoking 35 yrs ago. Physical Exam Constitutional: General: She is not in acute distress. HENT: Head: Normocephalic. Eyes: General: No scleral icterus. Right eye: No discharge. Left eye: No discharge. Extraocular Movements: Extraocular movements intact. Conjunctiva/sclera: Conjunctivae normal. Pulmonary: Effort: Pulmonary effort is normal. No respiratory distress. Breath sounds: No stridor. Chest: Breasts: Right: No inverted nipple, mass, nipple discharge, skin change or tenderness. Left: No inverted nipple, mass, [...] Thought content normal. Judgment: Judgment normal. A: Breast ca, R, IDC, gr 2, ER+WY+, Her2-, s/p lumpectomy & SNB, pT1c pN0, pos anterior resection margin. P: I'm awaiting call back from Dr. Schultz about possible reexcision & discussed such w/Josselyn,that reexcision might be recommended to increase likelihood of cancer cure. We discussed possible scenario of reexcision with neg margin, following which xrt could be given todecrease risk of locoregional recurrence. Discussed CALGB 9343 study evaluating women aged 70 yrs/older w/estrogen sensitive clinical stage I breast ca treated w/lumpectomy + bowie vs lumpectomy + xrt + bowie. Addition of xrt associated w/10 yr locoregional recurrence of 2% vs omission of xrt associated w/10 yr locoregional recurrence of 10%; statistically significant decrease in rate of locoregionalrecurrence w/xrt. No statistically significant survival difference. Xrt would probably be given in 5 fxs, every other day, to lumpectomy site vs 16 fxs to whole breast. Xrt treatment plan would depend on assessment of lumpectomy bed coverage & dose to normal tissues. Possible side effects of xrt to breast discussed, w/acute/immediate side effects including: Pinkening, soreness & peeling of skin in treated area; swelling of treated breast; soreness of treated breast; cough; shortness of breath; tiredness. Acute/immediate side effects usually temporary. Late/advertising job titles side effects to breast discussed include: Treated breast may shrink, become firmer & sit higher on chest; achiness/stiffness of chest wall on treated side; rib fracture on treated side; CT after xrt may show scarring w/in small volume of lung on treated side; very small risk of ra diotherapy associated 2nd malignancy. Risk of occurrence of late/[facility] side effects small. Need for CTsim prior to xrt discussed. She thinks she wants to proceed w/xrt & will await communication regarding input from Dr. Schultz about possible reexcision. Ctsim will be scheduled dependent on her plan to proceed w/xrt after reexcision. I recommend Heme-Onc consult for eval for systemic treatment, discussed w/her & she agrees. 55 mins encounter. Addendum: Dr. Schultz called after patient encounter & reexcision scheduled for later in week. Ctsim & Heme-Onc consult 10/29/23. documented in this encounter Plan of Treatment Upcoming Encounters Date Type Department Care Team (Late st Contact Info) Description 09/18/2024 10:30 AM EST Office Visit Hematology/Oncology at [address] [phone] Erica Yi APRN [address] [place] [address] [place] [address] 09/18/2024 11:00 AM EST Infusion Hematology Oncology at [address] [phone] 10/01/2024 3:45 PM EST Office Visit Functional Baptism Program at [facility] [address] [place] [phone] Gene Julien Jr., PT 12/23/2024 8:00 AM EST Appointment XRay at [address] [place] [phone] River Ochoa MD [address] [place] [address] 01/21/2025 1:00 PM EDT Office Visit Radiation Oncology at [address] [phone] Tory Salazar PA [facility] HEMATOLOGY [place] [address] Scheduled Orders Name Type Priority Associated Diagnoses Orde r Schedule Simulation for Radiation Therapy Planning Radiation Oncology Routine Malignant neoplasm of upper-inner quadrant of right breast in female, estrogen receptor positive Expected: 10/29/2023, Expires: 04/29/2024 Scheduled Referrals Name Type Priority Associated Diagnoses Order Schedule Referral to Hematology and Oncology Outpatient Referral Routine Malignant neoplasm of upper-inner quadrant of right breast in female, estrogen receptor positive Ordered: 10/07/2023 documented as of this encounter Visit Diagnoses Diagnosis Malignant neoplasm of upper-inner quadrant of right breast in female, estrogen receptor positive documented in this encounter Care Teams Field Support Rep Relationship Specialty Start Date End Date Kay Caldwell MD [address] [place] [address] [address] [place], [place] [address] PCP - General Family Medicine 08/15/22 documented as of this encounter
--- OUTSIDE RECORDS SUMMARY | 2024-09-18 01:18 | XMS_ITS | Encounter Summary ---
Author Organization [facility] [place] [address] Care Team Providers Care Timber Grader Name Role Phone Kay Caldwell MD Primary Care Provider [phone] Encounter Details Date Type Department Care Team (Latest Contact Info) Description 10/09/2023 6:34 PM EST - 10/09/2023 11:59 PM [facility] Hospital [place] [phone] Discharge Disposition: Home Social History Tobacco Use Types Packs/Day Years Used Date Smoking Tobacco: Former Cigarettes 2 15 Smokeless Tobacco: Never Comments:10-15 years quit 35 years ago Alcohol Use Standard Drinks/Week Comments Not Currently 0 (1 standard drink = 0.6 oz pur e alcohol) Recovering 41 years [facility] Utilities Answer Date Recorded In the [...] place to sleep or slept in a [facility] (including now)? No 10/06/2023 Sex and Gender Information Value Date Recorded Sex Assigned at Not on file Gender Identity Not on file Sexual Orientation Not on file documented as of this encounter Medications at Time of Discharge Medication Sig Dispensed Refills Start Date End Date UNABLE TO FIND Take by mouth daily. [...] daily. HERBAL DRUGS ORAL Take by mouth. [place] Wort, lemon balm, passiflora, leonorus, hypericum ACETAMINOPHEN ORAL Take 2 tablets by mouth as needed. lisinopriL (Zestril) 10 mg Tablet 06/27/2022 omeprazole (PriLOSEC) 20 mg Capsule, Delayed Release(E.C.) 06/27/2022 simvastatin (Zocor) 20 mg Tablet nightly. 07/02/2022 estrogens, conjugated, (Premarin) 0.625 mg/gram Cream Premarin 0.625 mg/gram vaginal cream 06/24/2018 10/29/2023 ketoconazole (NIZORAL) 2 % Shampoo daily as needed. 01/29/2023 07/17/2024 Naltrexone, Bulk, 100 % Powder Take 4.5 mg by mouth daily 1 g 3 12/14/2022 06/10/2024 documented as of this encounter Plan of Treatment Upcoming Encounters Date Type Department Care Team (Late st Contact Info) Description 09/18/2024 10:30 AM EST Office Visit Hematology/Oncology at [address] [phone] Erica Yi APRN [address] [place] [address] DR MEDICAL ONCOLOGY [place], [place] [id number] 09/18/2024 11:00 AM EST Infusion Hematology Oncology at [address] [phone] 10/01/2024 3:45 PM EST Office Visit Functional Buddhist Program at [address] [place] [phone] Gene Julien Jr., PT 12/23/2024 8:00 AM EST Appointment XRay at [address] [place] [phone] River Ochoa MD [address] [place], [place] [id number] 01/21/2025 1:00 PM EDT Office Visit Radiation Oncology at [address] [phone] Tory Salazar PA [facility] HEMATOLOGY [place] [address] documented as of this encounter Procedures Procedure Name Priority Date/Time Associated Diagnosis Comments SURGICAL PATHOLOGY REPORT Routine 10/09/2023 2:15 PM EST documented in this encounter Results * Surgical Pathology Report (10/09/2023 2:15 PM EST) Final Diagnosis [id number] ? Location: [facility] The signing pathologist has (i) examined the relevant preparation(s) for the specimen(s) and (ii) rendered or confirmed the diagnosis(es). . ?Surgical Pathology DIAGNOSIS A - Right breast, medial margin, re-excision: - Benign skin, fibroadipose tissue, and focal breast tissue with prior surgical site changes B - Right breast, superficial/anteri or margin, re-excision: - Benign breast tissue with prior surgical site changes C - Right breast, superior, re-excision: - Benign breast tissue with prior surgical site changes Electronically signed by: ?Lynn LANIER, Pedro Loaiza Verified: ??10/17/2023 10:09 ??Pathologist Performed at: ??-[facility] Dept. of Pathology, [place] [address] Ed Teacher: Quique Thompson MD, AP, ??CLIA Certificate: [id number] SPECIMEN(S) SUBMITTED A - New medial margin - stitch = medial B - Right breast re-excision, superficial/anteri or C - Right breast re-excision, superior Referring Identifier: ?? (not provided) CLINICAL INFORMATION Positive margin on prior partial mastectomy SPECIMEN PROCESSING A - Labeled/Fixative: Right breast re-excision, new medial margin stitch= medial, formalin. Quantity/Size: Single, 4.5 x 2.0 x 1.0 cm. Tissue Description: Yellow, lobulated adipose tissue with 2.5 x 1.0 x 1.6 cm defect corresponding to prior surgical site/cavity. There is a dc-white skin ellipse measuring 3.2 x 1.8 cm with a stitch attached to it. Ink designation: Adipose tissue surrounding cavitation site is inked Serially sectioned from distal adipose tissue to skin ellipse. Sections/Processin g: Inked, serially sectioned and entirely submitted in 10 cassettes as follows: ?A1-A6: Sequentially submitted from distal adipose tissue towards skin ellipse ?A7-A10: Skin; perpendicularly sectioned and sequentially submitted B - Labeled/Fixative: Right breast re-excision, superior new margin; long=lateral, short = superior, formalin. Quantity/Size: Single, 3.1 x 3.0 x 1.0 cm. Tissue Description: Yellow lobulated adipose tissue with dc-pink gritty hemorrhagic area measuring 2.5 x 2.2 cm. Ink designation: Short stitch side is inked blue Tissue has been sectioned from lateral(long stitch) to medial Sections/Processin g: Inked, serially sectioned and entirely submitted in 10 cassettes as follows: ?B1-B5: From lateral (long stitch) to midline ?B6-B10: From midline to medial C - Labeled/Fixative: Right breast re-excision, superficial/anteri or new margin. 2 long = lateral; 2 short = superior; 1 long/1 short= anterior/superfici al, formalin. . SPECIMEN PROCESSING Quantity/Size: Single, 5.6 x 4.1 x 1.5 cm. Tissue Description: Yellow, lobulated fibroadipose tissue with dc-pink gritty and firm hemorrhagic tissue measuring 4.5 x 3.0 cm on one side of specimen. Ink designation: superior (2 short stitches) is inked orange; anterior/superfici al (1 long/1 short) is inked blue. Serially sectioned from lateral to medial Sections/Processin g: Entirely submitted in 16 cassettes as follows: ?C1-C2: From lateral to midline ?C3: From lateral to midline; bisected ?C4: From lateral to midline; bisected ?C5: From lateral to midline (lateral stitch site); bisected ?C6: From lateral to midline; bisected ?C7-C8: Midline (superior stitch site); bisected ?C9: Midline to medial; bisected ?C10: ??Midline to medial including superior margin ?C11: From midline to medial including superior margin; bisected ?C12-C16: From midline to medial ??njrs 10/17/2023 10:09 AM EST [facility] BREAST STRUCTURE / Unknown 10/09/2023 2:15 PM EST 10/09/2023 2:15 PM EST BREAST STRUCTURE / Unknown 10/09/2023 2:15 PM EST 10/09/2023 2:15 PM EST BREAST STRUCTURE / Unknown 10/09/2023 2:15 PM EST 10/09/2023 2:15 PM EST Dmitri Schultz MD PATHOLOGY/CYTO LOGY ORDERABLES [facility] [place] [address] [facility] [place] [address] documented in this encounter Visit Diagnoses Not on filedocumented in this encounter Care Teams Timber Grader Relationship Specialty Start Date End Date Kay Caldwell MD [address] [place] [address] [address] [place] [address] PCP - General Family Medicine 08/15/22 documented as of this encounter
--- OUTSIDE RECORDS SUMMARY | 2024-09-18 01:18 | XMS_ITS | Encounter Summary ---
Author Organization [facility] [place] [address] Care Team Providers Care Materials Planning Analyst Name Role Phone Kay Caldwell MD Primary Care Provider [phone] Reason for Visit * Reason Comments Pain FRP 1 MON F/U * Consultation (Routine) - Closed Specialty Diagnoses / Procedures Referred By Contac t Referred To Contact [facility] Diagnoses Spondylosis of lumbar region without myelopathy or radiculopathy Procedures IA GROUP THERAPEUTIC PROCEDURES IA GROUP THERAPEUTIC PROCEDURES HC OCCUPATIONAL THERAPY EVALUATION MODERATE COMPLEXITY PRO ESTABLISHED PATIENT LEVEL 4 HC ESTABLISHED PATIENT LEVEL 4 PRO ESTABLISHED PATIENT LEVEL 3 HC ESTABLISHED PATIENT LEVEL 3 PRO FUNCTIONAL RELIGION PROGRAM LECTURE, GROUP HC THERAPEUTIC ACTIVITY EA 15 MIN HC PHYSICAL THERAPY RE-EVALUATION EST PLAN CARE HC PHYSICAL PERFORMANCE TEST W REPORT 15 MIN Jazmín Santiago APRN [facility] [place] [address] Htr Frp [address] [place] [address] Referral ID Status Reason Start Date Expiration Date Visits Requested Visits Authorized [id number] Closed Functional Restorative Program 03/25/2023 03/24/2024 52 52 Encounter Details Date Type Department Care Team (Late st Contact Info) Description 06/06/2023 9:45 AM EDT Office Visit [place] [address] Jazmín Santiago APRN [facility] [place] [address] Lumbar spondylosis Social History Tobacco Use Types Packs/Day Years Used Date Smoking Tobacco: Former Smokeless Tobacco: Never Sex and Gender Information Value Date Recorded Sex Assigned at Not on file Gender Identity Not on file Sexual Orientation Not on file documented as of this encounter Last Filed Vital Signs Vital Sign Reading Time Taken Comments Blood Pressure 140/55 06/06/2023 9:35 AM EDT Pulse 67 06/06/2023 9:35 AM EDT Temperature - - Respiratory Rate - - Oxygen Saturation - - Inhaled Oxygen Concentration - - Weight 88.9 kg (196 lb) 06/06/2023 9:35 AM EDT Height 157.5 cm (5' 2) 06/06/2023 9:35 AM EDT Body Mass Index 35.85 06/06/2023 9:35 AM EDT documented in this encounter Progress Notes * Jazmín Santiago, LECTURER OF PORTUGUESE - 06/06/2023 9:45 AM EDT Chief Complaint: right sided flank, and low back pain. SUBJECTIVE: Josselyn Garduno is here for 1 month follow up to completion of the Functional Episcopalian program. In general, things have gone extremely well. OBJECTIVE; Functional goals and progress Towards those goals is: She has maintained or increased all tolerances and has achieved her goals. Since completing the program, everything is going extremely well. She has experienced one major pain flare up but utilized her flare up plan and completed stretches. She has been compliant with her home exercise plan. She will be going away to [place] and [place] mid August to beginning of September. 04/15/2023 05/09/2023 06/03/2023 [facility] DISCHARGE SUMMARY QUESTIONNAIRE TOTALS INSOMNIA SEVERITY INDEX [...] rails) Short of Breath Short of Breath ASSESSMENT: Chief complaint requiring rehabilitation:right sided flank, and low back pain. PLAN; Next follow up will be at 3 months if requested. 25, out of 25 minutes was spent in face to face consultation of present symptoms and future plan of care. Jazmín Santiago, MS, BUSINESS OBJECTS CONSULTANT-BC, LECTURER OF PORTUGUESE Nurse practitioner Pain management [facility] documented in this encounter Plan of Treatment Upcoming Encounters Date Type Department Care Team (Late st Contact Info) Description 09/18/2024 10:30 AM EST Office Visit Hematology/Oncology at [address] [phone] Erica Yi APRN [address] [place] [address] [place] [address] 09/18/2024 11:00 AM EST Infusion Hematology Oncology at [address] [phone] 10/01/2024 3:45 PM EST Office Visit Functional Episcopalian Program at [facility] [address] [place] [address] Gene Julien Jr., PT 12/23/2024 8:00 AM EST Appointment XRay at [address] [place] [address] River Ochoa MD [address] [place], [place] [address] 01/21/2025 1:00 PM EDT Office Visit Radiation Oncology at [address] [phone] Tory Salazar V., PA [facility] DR HEMATOLOGY [place] [address] documented as of this encounter Visit Diagnoses Diagnosis Lumbar spondylosis Lumbosacral spondylosis without myelopathy documented in this encounter Care Teams Materials Planning Analyst Relationship Specialty Start Date End Date Kay Caldwell MD [address] [place] [address] [address] [place] [address] PCP - General Family Medicine 08/15/22 documented as of this encounter
--- OUTSIDE RECORDS SUMMARY | 2024-09-18 01:18 | XMS_ITS | Encounter Summary ---
Author Organization [facility] [place] [address] Care Team Providers Care Senior Sales Engineer Name Role Phone Kay Caldwell MD Primary Care Provider [phone] Encounter Details Date Type Department Care Team (Late st Contact Info) Description 08/09/2023 9:25 AM EDT Ancillary Procedure Radiology Library at [facility] [place] [address] Lesa Kingston MD [facility] [place] [address] Social History Tobacco Use Types Packs/Day Years [...] AM EST Office Visit Hematology/Oncology at [address] [phone] Erica Yi APRN [address] [place] [address] DR MEDICAL ONCOLOGY [place], [place] [address] 09/18/2024 11:00 AM EST Infusion Hematology Oncology at [address] [phone] 10/01/2024 3:45 PM EST Office Visit Functional Hindu Program at [facility] [address] [place] [address] Gene Julien Jr., PT 12/23/2024 8:00 AM EST Appointment XRay at [address] [place] [address] River Ochoa MD [address] [place] [address] 01/21/2025 1:00 PM EDT Office Visit Radiation Oncology at [address] [phone] Tory Salazar PA [facility] HEMATOLOGY [place] [address] documented as of this encounter Procedures Procedure Name Priority Date/Time Associated Diagnosis Comments FILM LIBRARY STORAGE ONLY MAMMO Routine 08/09/2023 9:25 AM EDT documented in this encounter Results * Film Library- Storage Only Mammo (08/09/2023 9:25 AM EDT) 07/24/2024 12:2 6 PM EDT Narrative [facility] 07/24/2024 12:26 PM EDT This exam is auto-finalizing. It's purpose is for storage only. Lesa Kingston MD IMG FILM LIBRARY OR DERABLES [place], [place] documented in this encounter Visit Diagnoses Not on filedocumented in this encounter Care Teams Senior Sales Engineer Relationship Specialty Start Date End Date Kay Caldwell MD [address] [place] [address] [address] [place], [place] [address] PCP - General Family Medicine 08/15/22 documented as of this encounter
--- OUTSIDE RECORDS SUMMARY | 2024-09-18 01:18 | XMS_ITS | Encounter Summary ---
Author Organization [facility] Address [facility] [place] [address] Care Team Providers Care Belt Press Operator Name Role Phone Kay Caldwell MD Primary Care Provider [phone] Encounter Details Date Type Department Care Team (Late st Contact Info) Description 11/26/2023 12:45 PM EST Office Visit Radiation Oncology at [address] [phone] Josh Luna MD [facility] [place] [address] Malignant neoplasm of upper-inner quadrant of right [...] Recorded In the past 12 months has [employer] electric, gas, oil, or water company threatened [...] Sign Reading Time Taken Comments Blood Pressure 159/70 11/26/2023 12:48 PM EST Pulse 66 11/26/2023 12:48 PM EST Temperature 36.8 ??C (98.2 ??F) 11/26/2023 1 2:48 PM EST Respiratory Rate 16 11/26/2023 12:4 8 PM EST Oxygen Saturation 100% 11/26/2023 12: 48 PM EST Inhaled Oxygen Concentration - - Weight 87.5 kg (192 lb 12.8 oz) 024 12:48 PM EST Height - - Body Mass Index 34.59 10/29/2023 10:00 AM EST documented in this encounter Progress Notes * Josh Luna MD - 11/26/2023 12:45 PM EST Images from the original note were not included. DIAGNOSIS: Breast ca, R, IDC, gr 2, ER+VA+, Her2-, s/p lumpectomy & SNB followed by reexcision,pT1c pN0. CURRENT TREATMENT DOSE: 18 Gy apbi R breast lumpectomy bed ANTICIPATED TOTAL DOSE: 30 Gy apbi R breast lumpectomy bed Current # of xrt received: 3 Anticipated total # of xrt txs: 5 Evaluation of port verification films: Approved. For details, see electronic film record in [employer] System. Changes in Medical Condition: Sleeping better since she started taking Tylenol pm. Pain?: None Your Medications Accurate as of November 26, 2023 12:01 PM. If you have any questions, ask your [...] 0 HERBAL DRUGS ORAL Take by mouth. Bucks Wort, lemon balm, passiflora, leonorus, hypericum Refills: [...] Physical Exam: Recent Vitals Most Recent Value 11/26/2023 1248 Height: 159 cm (5' 2.6) as of 10/29/2023 -- Weight: 87.5 kg (192 lb 12.8 oz) as of 11/26/2023 87.5 kg (192 lb 12.8 oz) Body Surface Area: 1.97 m?? 159 cm (5' 2.6) as of 10/29/2023 87.5 kg (192 lb 12.8 oz) as of 11/26/2023 BP: 159/70 as of 11/26/2023 159/70 Temperature: 36.8 ??C (98.2 ??F) as of 11/26/2023 36.8 ??C (98.2 ??F) Heart Rate: 66 as of 11/26/2023 66 SpO2: 100% as of 11/26/2023 100 % A&Ox3, NAD. Amb stable. Breast: [...] Recommendation on Continuing Course of xrt: Continue. Sleeping better with tylenol pm. Dr. Tomlinson has discussed CT sim findings involving lungs & heart; plan was to fax CT sim report & OTV note to Dr. Caldwell (PCP) & communicate by phone as well. Completes xrt 12/03/23. Care of irradiatedskin discussed. Can resume herbal sleeping liq day after last xrt. Rtc to see Dr. Grijalva after XRT o n 12/31/23. Josh Luna M.D. (covering for Monique Grijalva M.D.) documented in this encounter Plan of Treatment Upcoming Encounters Date Type Department Care Team (Late st Contact Info) Description 09/18/2024 10:30 AM EST Office Visit Hematology/Oncology at [address] [phone] Erica Yi, BARREL INSPECTOR [address]IGHT[address] MEDICAL ONCOLOGY [place], [place] [address] 09/18/2024 11:00 AM EST Infusion Hematology Oncology at [address] [phone] 10/01/2024 3:45 PM EST Office Visit Functional Catholic Program at [place] [address] [facility] [place] [address] Gene Julien Jr., PT 12/23/2024 8:00 AM EST Appointment XRay at [address] [place] [address] River Ochoa MD [address] [place] [address] 01/21/2025 1:00 PM EDT Office Visit Radiation Oncology at [address] [phone] Tory Salazar PA [facility] HEMATOLOGY AND [place] [address] documented as of this encounter Visit Diagnoses Diagnosis Malignant neoplasm of upper-inner quadrant of right breast in female, estrogen receptor positive documented in this encounter Care Teams Belt Press Operator Relationship Specialty Start Date End Date Kay Caldwell MD [address] [place] [address] [address] [place], [place] [address] PCP - General Family Medicine 08/15/22 documented as of this encounter
--- OUTSIDE RECORDS SUMMARY | 2024-09-18 01:18 | XMS_ITS | Encounter Summary ---
Author Organization [facility] [place] [address] Care Team Providers Care Assurance Senior Manager Insurance Name Role Phone Kay Caldwell MD Primary Care Provider [phone] Encounter Details Date Type Department Care Team (Late st Contact Info) Description 10/01/2023 Interpretation Only [facility] [address] [place] [phone] Ling Nava PA [address] [place] [address] Social History Tobacco Use Types Packs/Day Years [...] 10:30 AM EST Office Visit Hematology/Oncology at [address] [phone] Erica Yi APRN [address] [place] [address] DR MEDICAL ONCOLOGY [place], [place] [address] 09/18/2024 11:00 AM EST Infusion Hematology Oncology at [address] [phone] 10/01/2024 3:45 PM EST Office Visit Functional Orthodoxy Program at [facility] [address] [place] [address] Gene Julien Jr., PT 12/23/2024 8:00 AM EST Appointment XRay at [address] [place] [address] River Ochoa MD [address] [place], [place] [address] 01/21/2025 1:00 PM EDT Office Visit Radiation Oncology at [address] [phone] Tory Salazar PA [facility] DR HEMATOLOGY [place] [address] documented as of this encounter Procedures Procedure Name Priority Date/Time Associated Diagnosis Comments US EXTREMITY NON VASCULAR LIMITED ANATOMIC SPECIFIC RIGHT Routine 10/01/2023 1:34 PM EST documented in this encounter Results * US Extremity Non Vascular Limited Right (10/01/2023 1:34 PM EST) PT CLASS RAD ADMITDTTM RAD PT RAD INFO [id number]^Sundi na^Ling^V RAD EXAM DESC UEXTLMTR^US Extremity Nonvascular Limited Right^RIS RAD Anatomical Region Laterality Modality Ultrasound 10/01/2023 1:34 PM EST Impressions 10/01/2023 2:07 PM EST Right axillary hematoma/seroma. Thank you for letting us participate in the care of this patient. ??If you are a health care provider and have any questions regarding this report, please contact the number below. ??For patients who have questions please contact the health patient care coordinator that requested your imaging first. ? Electronically signed by: Joaquim Muhammad MD, [facility] ([phone]), at 10/01/2023 2:07 PM Narrative 10/01/2023 2:07 PM EST EXAMINATION: US Extremity Nonvascular Limited Right CLINICAL HISTORY: eval for hematoma TECHNIQUE: Right axillary sonogram COMPARISON: None FINDINGS: There is an irregular anechoic collection with some internal echoes measuring 6.6 x 5.3 x 4.5 cm. This is from the axillary vein and artery with no vascular flow. Procedure Note Joaquim Muhammad MD - 10/01/2023 EXAMINATION: US Extremity Nonvascular Limited Right CLINICAL HISTORY: eval for hematoma TECHNIQUE: Right axillary sonogram COMPARISON: None FINDINGS: There is an irregular anechoic collection with some internal echoesmeasuring 6.6 x 5.3 x 4.5 cm. This is from the axillary vein and arterywith no vascular flow. IMPRESSION Right axillary hematoma/seroma. Thank you for letting us participate in the care of this patient. If youare a health care provider and have any questions regarding this report,please contact the number below. For patients who have questions please contactthe health patient care coordinator that requested your imaging first. Electronically signed by: Joaquim Muhammad MD, [facility]([phone]), at 10/01/2023 2:07 PM KIM James IMG US GEN ORDERA BLES documented in this encounter Visit Diagnoses Not on filedocumented in this encounter Care Teams Assurance Senior Manager Insurance Relationship Specialty Start Date End Date Kay Caldwell MD [address] [place] [address] [address] [place] [address] PCP - General Family Medicine 08/15/22 documented as of this encounter
--- OUTSIDE RECORDS SUMMARY | 2024-09-18 01:18 | XMS_ITS | Encounter Summary ---
Author Organization [facility] [place] [address] Care Team Providers Care Content Developer Name Role Phone Kay Caldwell MD Primary Care Provider [phone] Reason for Visit * Reason Comments Back Pain Encounter Details Date Type Department Care Team (Late st Contact Info) Description 08/12/2023 10:00 AM EDT Office Visit Functional Spiritism Program at [facility] [address] [place] [address] Ariana Brock, OT Lumbar spondylosis Social History Tobacco Use Types Packs/Day Years Used Date Smoking Tobacco: Former Smokeless Tobacco: Never Sex and Gender Information Value Date Recorded Sex Assigned at Not on file Gender Identity Not on file Sexual Orientation Not on file documented as of this encounter Progress Notes * Ariana Brock OT - 08/12/2023 10:00 AM EDT FUNCTIONAL MORAVIAN PROGRAM FRP 3 MONTH FOLLOW-UP Dear Josselyn Garduno, Thank you [...] and depression. Since completing the program, everything has been going well since her last follow up. She has experienced some minor flare ups but nothing major. She is planning to going to [place] and [employer] in a few weeks and is going to bring her theraband with her to keep up on some exercises. 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 Title Endurance and Flexibility Test Results: Reported Tolerance (minutes) First Day of FRP: End of FRP: 1 Month Follow-up: 3 Month Follow-up (optional): Sittin 120 120 120 Standin 120 120 120 Walkin 30 30 30 Flexibility (degrees): Neck: First Day of FRP: End of FRP: 1 Month Follow-up: 3 Month Follow-up (optional): Bending Forward: 60 75 75 75 Bending Back: 45 65 65 60 Turning Right: 45 70 70 70 Turning Left: 45 65 70 70 Tilting Right: 25 30 40 40 Tilting Left: 25 35 35 35 Low Back: First Day of FRP: End of FRP: 1 Month Follow-up: 3 Month Follow-up (optional): Bending Forward: 55 70 90 105 Bending Back: 10 25 35 30 Straight Leg Raise Right: 65 90 85 90 Straight Leg Raise Left: 65 90 85 90 Straight Leg Raise Pelvic: Treadmill First Day of FRP: End of FRP: 1 Month Follow-up: 3 Month Follow-up (optional): MET Level: Heart Rate: MET Level: Heart Rate: MET Level: Heart Rate: MET Level: Heart Rate: Treadmill Endurance: 7 132 7 114 7 140 8 131 Reason for Stopping (if applicable): Short of breath (hands on rails) Short of Breath Short of breath Short of breath [employer] Occupational Performance Measure Results - 3 Month [...] Follow-Up Repetitive Floor to Waist 50/120 55/123 50/130 Repetitive Waist to Shoulder 20/105 20/117 20/138 1-Time Maximum 25 55 60 55 2-Handed Carry - 50 ft 20 45 50 50 Work Demand Level Light Medium Medium Medium The results of this testing [...] Step routine (mp3 in myDH) Warm Up [place] (mp3 in myDH) Elliptical / TM / [...] cause lasting change. Assessment: Ms. Garduno has maintained her physical capacities since the end of program testing and her last follow up. She has met all of her functional goals and has successfully implemented her self penitentiary program and reports being consistent in following it. Overall, Josselyn is pleased with her progress and ability to engage in her meaningful activities, improving her overall quality of life. She is going to on a trip to [place] and [place] in a few weeks and feels she has the tools necessary to do some exercises while on vacation. She understands that she can call us with any questions/concerns. PLAN: Exercise: Continue with current plan Next [facility] Follow-up Date: As needed 60 minutes was spent to review status of goals, test physical performance, and plan for continued self care. Cc: Josselyn Garduno [address] [place] [address] Kay Caldwell MD [address] [place] [address] [place] [address] documented in this encounter Plan of Treatment Upcoming Encounters Date Type Department Care Team (Late st Contact Info) Description 09/18/2024 10:30 AM EST Office Visit Hematology/Oncology at [address] [phone] Erica Yi APRN [address] [place] [address] [place] [address] 09/18/2024 11:00 AM EST Infusion Hematology Oncology at [address] [phone] 10/01/2024 3:45 PM EST Office Visit Functional Spiritism Program at [facility] [address] [place] [address] Gene Julien Jr., PT 12/23/2024 8:00 AM EST Appointment XRay at [address] [place] [address] River Ochoa MD [address] [place] [address] 01/21/2025 1:00 PM EDT Office Visit Radiation Oncology at [address] [phone] Tory Salazar PA [facility] HEMATOLOGY [place] [address] documented as of this encounter Procedures Procedure Name Priority Date/Time Associated Diagnosis Comments OT PLAN OF CARE CERT/RE-CERT Routine 08/12/2023 12:43 PM EDT Lumbar spondylosis documented in this encounter Visit Diagnoses Diagnosis Lumbar spondylosis Lumbosacral spondylosis without myelopathy documented in this encounter Care Teams Content Developer Relationship Specialty Start Date End Date Kay Caldwell MD [address] [place] [address] [place] [address] PCP - General Family Medicine 08/15/22 documented as of this encounter
--- OUTSIDE RECORDS SUMMARY | 2024-09-18 01:18 | XMS_ITS | Encounter Summary ---
Author Organization [facility] [place] [address] Care Team Providers Care Patient Access Associate Name Role Phone Kay Caldwell MD Primary Care Provider [phone] Encounter Details Date Type Department Care Team (Late st Contact Info) Description 08/02/2023 Interpretation Only Radiology Library [place] [facility] [place] [phone] Lesa Kingston MD [facility] HEMATOLOGY [place] [address] Social History Tobacco Use Types Packs/Day Years Used Date Smoking Tobacco: Former Smokeless Tobacco: Never [facility] Utilities Answer Date Recorded In the past [...] AM EST Office Visit Hematology/Oncology at [address] [phone] Erica Yi [address] MEDICAL ONCOLOGY [place], [place] [phone] 09/18/2024 11:00 AM EST Infusion Hematology Oncology at [address] [phone] 10/01/2024 3:45 PM EST Office Visit Functional Yarsani Program at [facility] [address] [place] [address] Gene Julien Jr., PT 12/23/2024 8:00 AM EST Appointment XRay at [address] [place] [address] River Ochoa MD [address] [place], [place] [address] 01/21/2025 1:00 PM EDT Office Visit Radiation Oncology at [address] [phone] Tory Salazar PA [facility] HEMATOLOGY [place] [address] documented as of this encounter Procedures Procedure Name Priority Date/Time Associated Diagnosis Comments FILM LIBRARY STORAGE ONLY ULTRASOUND STUDY Routine 08/02/2023 9:45 AM EDT documented in this encounter Results * Film Library- Storage Only Ultrasound Study (08/02/2023 9:45 AM EDT) 07/24/2024 12:2 6 PM EDT Narrative [facility] - 07/24/2024 12:26 PM EDT This exam is auto-finalizing. It's purpose is for storage only. Lesa Kingston MD IMG FILM LIBRARY OR DERABLES [place], [place] documented in this encounter Visit Diagnoses Not on filedocumented in this encounter Care Teams Patient Access Associate Relationship Specialty Start Date End Date Kay Caldwell MD [address] [place] [address] [place] [address] PCP - General Family Medicine 08/15/22 documented as of this encounter
--- OUTSIDE RECORDS SUMMARY | 2024-09-18 01:18 | XMS_ITS | Encounter Summary ---
Author Organization Formerly [facility] One [facility] [place] [address] Care Team Providers Care Guide Travel Name Role Phone Kay Caldwell MD Primary Care Provider [phone] Encounter Details Date Type Department Care Team (Latest Contact Info) Description 06/06/2023 Travel Social History Tobacco Use Types Packs/Day [...] 10:30 AM EST Office Visit Hematology/Oncology at [address] [phone] Erica Yi APRN [address] [place] [address] DR MEDICAL ONCOLOGY [place], [place] [id number] 09/18/2024 11:00 AM EST Infusion Hematology Oncology at [address] [phone] 10/01/2024 3:45 PM EST Office Visit Functional [facility] Program at [facility] [address] [place] [address] Gene Julien Jr., PT 12/23/2024 8:00 AM EST Appointment XRay at [facility] [place] [address] River Ochoa MD [address] [place] [address] 01/21/2025 1:00 PM EDT Office Visit Radiation Oncology at [address] [phone] Tory Salazar PA [facility] [address] [place] [address] documented as of this encounter Visit Diagnoses Not on filedocumented in this encounter Care Teams Guide Travel Relationship Specialty Start Date End Date Kay Caldwell MD [address] [place] [address] [address] [place] [address] PCP - General Family Medicine 08/15/22 documented as of this encounter
--- OUTSIDE RECORDS SUMMARY | 2024-09-18 01:18 | XMS_ITS | Encounter Summary ---
Author Organization [facility] Address [facility] [place] [address] Care Team Providers Care Licensed Embalmer Supervisor Name Role Phone Kay Caldwell MD Primary Care Provider [phone] Reason for Visit * Consultation (Routine) - Closed Specialty Diagnoses / Procedures Referred By Contac t Referred To Contact Hematology and Oncology Diagnoses Malignant neoplasm of upper-inner quadrant of right breast in female, estrogen receptor positive Monique Grijalva MD [facility] [place] [address] Stj Hem Onc Office [address] [place] [phone] Referral ID Status Reason Start Date Expiration Date V isits Requested Visits Authorized [id number] Closed Consult, Test & Treat 10/07/2023 10/06/2024 1 1 Encounter Details Date Type Department Care Team (Late st Contact Info) Description 10/29/2023 10:00 AM EST Office Visit Hematology/Oncology at [address] [phone] Nichole Fowler MD USP current use of aromatase inhibitor; Stage I breast cancer in female Social [...] place to sleep or slept in a penitentiary (including now)? No 10/28/2023 Sex and Gender Information Value Date Recorded Sex Assigned at Not on file Gender Identity Not on file Sexual Orientation Not on file documented as of this encounter Last Filed Vital Signs Vital Sign Reading Time Taken Comments Blood Pressure 151/61 10/29/2023 10:00 AM EST Pulse 78 10/29/2023 10:00 AM EST Temperature 36.4 ??C (97.5 ??F) 10/29/2023 10:[address] Respiratory Rate 18 10/29/2023 10:00 AM EST Oxygen Saturation 97% 10/29/2023 10:00 AM EST Inhaled Oxygen Concentration - - Weight 89.5 kg (197 lb 6.4 oz) 10/29/2023 10:00 AM EST Height 159 cm (5' 2.6) 10/29/2023 10:00 AM EST Body Mass Index 35.42 10/29/2023 10:00 AM EST documented in this encounter Progress Notes * Nichole Fowler MD - 10/29/2023 10:00 AM EST Images from the original note were not included. [facility] Patient Name: Josselyn Garduno : 1945 Visit Date: 11/08/2023 PCP: Kay Caldwell MD Breast surgical oncology: Dmitri Schultz MD ([facility]) Radiation oncology: Monique Grijalva MD Reason for visit: Stage I (pT1c pN0) Right breast cancer - ER+ NE+ HER2 - DIAGNOSIS: Breast cancer stage: Clinical stage: cT1b,cN0 Pathological stage: pT1c pN0 Type: IDC and DCIS Grade: Intermediate grade Receptor status: ER+ (>90%), NE+ (>90%), HER2 negative (0) CURRENT TX: ONCOLOGIC HX: 08/01/23: Abnormal screening mammogram: Right [...] present; SLNB:0/1: positive anterior margin 10/09/23: re-excision HPI: Mrs. Josselyn Garduno is a 78 y.o. female with PMHx significant for but not limited to HTN, bilateral knee replacement 2/2 OA, chronic low back pain 2/2 lumbar canal stenosis and recent diagnosis ofstage I ER positive, NE positive, HER2 negative right breast cancer s/p right partial mastectomy + SLNB on 10/02/2023, reexcision on 10/09/2023, who presents today to discuss recommendations regarding systemic therapy for stage I ER positive NE positive HER2 negative right breast cancer. History Oral contraceptive use 10 yrs Menarche age 13 yrs old LMP is s/p hysterectomy Personal history of hormone replacement therapy 10-15 yrs (in context of vaginal dryness) Family history of breast cancer Maternal aunts: breast cancer Family history of ovarian cancer Doesn't know Family history of prostate cancer Doesn't know Ashkenazi Yazidism heritage No Personal history of known genetic mutation Yes (requesting report) Josselyn is here today with her Casey; Josselyn endorsed that she has been healing well since surgery with no new breast concerns. Currently endorsed that she had underwent bilateral knee replacement in context of osteoarthritis. She also has arthralgia in her thumbs and elbows. She endorsed chronic low back pain in context of lumbar canal stenosis. She endorsed that her back pain has been stable. She also endorsed neck pain that has been chronic. She denied new bone/back pain since her breast cancer diagnosis. She denies headaches, changes in vision, focal weakness, chest, and abdominal pain She is endorsing that she continues to be as physically active as she can tolerate, and that she tries to follow a healthy diet. Currently also endorsed that she is independent in her ADLs. Of note Josselyn endorsed that she had struggled with vaginal dryness and therefore has been on HRT for almost 15 years. Review of Symptoms: As per HPI, all [...] abdominal pain, constipation, diarrhea, nauseaand vomiting. Endocrine: Negative for hot flashes. Genitourinary: Negative for difficulty urinating and dysuria. Musculoskeletal: Positive for arthralgias, back pain and neck pain. Negative for flank pain, gait problem, myalgias and neck stiffness. Skin: Negative for rash. Neurological: Negative for dizziness, extremity weakness, gait problem, headaches, light-headedness, numbness, seizures and speech difficulty. Hematological: Negative for adenopathy. Allergies: Allergies as of 10/29/2023 - Review Complete 10/29/2023 Allergen Reaction Noted Opioids - morphine analogues Nausea And Vomiting 10/09/2022 Medical History: Past Medical History: Diagnosis Date Breast cancer HTN (hypertension) Current Medications: Current Outpatient Medications Medication Sig Note UNABLE TO FIND Take by mouth daily. [...] daily. HERBAL DRUGS ORAL Take by mouth. [place] Wort, lemon balm, passiflora, leonorus, hypericum 10/29/2023: Homeopathic liquid used for anxiety/sleeping ACETAMINOPHEN ORAL Take 2 tablets by mouth as needed. lisinopriL (Zestril) 10 mg Tablet omeprazole (PriLOSEC) 20 mg Capsule, Delayed Release(E.C.) simvastatin (Zocor) 20 mg Tablet nightly. anastrozole (Arimidex) 1 mg tablet Take 1 tablet by mouth daily for 30 days. (Patient not taking: Reported on 10/29/2023) emollient combination no.111 (REMEDY PHYTOPLEX MOISTURIZER TOP) Apply topically. Phytoplex Remedy Moisturizer: Apply to area of radiation twice a day but no less than 2 hours before a treatment. Surgical History: Past Surgical History: Procedure Laterality Date COLECTOMY 2020 MASTECTOMY, PARTIAL Right PRO INJ, FORAMEN, L/S, 1 LEVEL Right 10/09/2022 INJECTION, ANESTHETIC AGENT AND/OR STEROID, TRANSFORAMINAL EPIDURAL, LUMBAR OR SACRAL, SINGLE LEVEL(WRVU 1.9) performed by Cosmo Blanco MD at [facility] PAIN MGMT MSO PRO INJ, FORAMEN, L/S, 1 LEVEL Right 11/09/2022 INJECTION, ANESTHETIC AGENT AND/OR STEROID, TRANSFORAMINAL EPIDURAL, LUMBAR OR SACRAL, SINGLE LEVEL(WRVU 1.9) performed by Jose Tai MD at [facility] PAIN MGMT MSO PRO INJ, FORAMEN, L/S, ADDL LEVELS Right 10/09/2022 INJECTION, ANESTHETIC AGENT AND/OR STEROID, TRANSFORAMINAL EPIDURAL, LUMBAR OR SACRAL, EACH ADDITIONAL LEVEL (WRVU 1) performed by Cosmo Blanco MD at [facility] PAIN MGMT MSO PRO INJECTION DX/THER SBST INTRLMNR LMBR/SAC W/IMG GDN Right 11/21/2022 INJECTION, EPIDURAL, LUMBAR OR SACRAL (CAUDAL), WITH IMAGING GUIDANCE (WRVU 1.8) performed by Jose Tai MD at [facility] PAIN MGMT MSO PRO INJECTION PV FACET JOINT LUMBAR/SACRAL SINGLE LEVEL Right 12/11/2022 INJECTION, FACET JOINT, W\FLUORO, LUMBAR, SINGLE (WRVU 1.52) performed by Jose Tai MD at [facility] PAIN MGMT MSO Family History: Family History No data available Josselyn endorsed family history of breast cancer in her maternal aunts. She is not aware of family history of ovarian/GI/prostate cancer Genetics: She endorsed undergoing genetic testing at [facility] which may have revealed a positive genetic mutation. Will request report Social History: Josselyn reports that she quit smoking about 35 years ago. Her smoking use included cigarettes. She has a 30.00 pack-year smoking history. She has never used smokeless tobacco. She reports that she does not currently use alcohol. She reports that she does not use drugs. Physical Exam: Vital signs and weight : Wt Readings from Last 3 Encounters: 10/29/23 89.5 kg (197 lb 6.4 oz) 10/07/23 90.4 kg (199 lb 6.4 oz) 06/06/23 88.9 kg (196 lb) Temp Readings from Last 3 Encounters: 10/29/23 36.4 ??C (97.5 ??F) (Temporal) 10/07/23 37 ??C (98.6 ??F) BP Readings from Last 3 Encounters: 10/29/23 151/61 06/06/23 140/55 04/15/23 159/68 Pulse Readings from Last 3 Encounters: 10/29/23 78 06/06/23 67 03/25/23 70 -- Pain score: 0 Cancer Distress Responses: 10/28/2023 2:50 PM Cancer Distress Distress 1 ECOG PS: 0 Gen: alert and oriented x 3 HEENT: normocephalic, atraumatic, sclerae anicteric, oropharynx clear, moist mucous membranes Neck: supple, non-tender. No thyromegaly. Breast exam: Patient provided verbal consent for breast exam Right breast: Skin: no rash or erythema, no palpable breast masses/lumps, incision is C/D/I; nipple: normal position and everted , no [...] submental, supraclavicular, infraclavicular, axillary or inguinal lymphadenopathy Labs: None discussed today Breast Imaging: Screening [...] Pathology Report Surgical Pathology Report Collected: 09/18/23 1335 Result status: Final Resulting lab: [facility] Value: [id number] Location: [facility] The signing pathologist has (i) [...] with cautery artifact. G - Right Axillary [place] Lymph Node - - One benign node, (0/1). Note - The cauterized glands can not be further interpreted. Step sections were examined (F). Electronically signed by: Monica Schmitz DO Verified: 09/28/2023 18:27 Pathologist Performed at: -[facility] Dept. of Pathology, [place] [address] Head Of Stock: Quique Thompson MD, FCAP, [place] Certificate: [id number] SYNOPTIC Specimen Procedure: Excision (less than total [...] Examined (sentinel and non-sentinel): 1 Number of [place] Nodes Examined: 1 pTNM Classification (AJCC 8th Edition) pT Category: pT1c pN Category: pN0 N Suffix: (sn) Re-excision on 10/09/2023 Surgical Pathology Report Surgical Pathology Report Collected: 10/09/231414 Result status: Final Resulting lab: [facility] Value: [id number] Location: [facility] The signing pathologist has (i) [...] MD Verified: 10/17/2023 10:09 Pathologist Performed at: -[facility] Dept. of Pathology, [place] [address] Head Of Stock: Quique Thompson MD, FCAP, CLIA Certificate: [id number] SPECIMEN(S) SUBMITTED A - New medial margin - stitch = medial B - Right breast re-excision, superficial/anterior C - Right breast re-excision, superior Referring Identifier: (not provided) Imaging: No further imaging discussed today Assessment & Plan: Mrs. Josselyn Garduno is a 78 y.o. female with PMHx significant for but not limited to HTN, bilateral knee replacement 2/2 OA, chronic low back pain 2/2 lumbar canal stenosis and recent diagnosis ofstage I ER positive, NE positive, HER2 negative right breast cancer s/p right partial mastectomy + SLNB on 10/02/2023, reexcision on 10/09/2023, who presents today to discuss recommendations regarding systemic therapy for stage I ER positive NE positive HER2 negative right breast cancer. #Stage I RIGHT breast cancer - Clinical stage: cT1b,cN0 - Pathological stage: pT1c,pN0 - Receptor status: ER+ (>90%), NE+ (>90%), HER2 negative (0) - Pathology: Intermediate grade IDC and DCIS - Molecular subtype: Luminal subtype A - Genetics: Endorsed undergoing genetic testing at [facility], will request report - Staging workup We have discussed in length recommendations per NCCN guidelines regarding staging imaging for StageI breast cancer and that labs and imaging are recommended/indicated in context of symptoms and signs concerning for metastatic disease. Given that Josselyn isn't endorsing symptoms or signs of disease p rogression at this time, will continue to closely monitor. - Treatment: 09/18/23: Right partial mastectomy + SLNB: grade II, 13 mm, single focus of IDC; DCIS present; SLNB:0/1: positive anterior margin 10/09/23: re-excision We have discussed that breast conservation therapy (BCT) entails partial mastectomy and RT. We havediscussed in length the role of endocrine therapy (Aromatase inhibitors) in management of early stage breast cancer; and that endocrine therapy was shown to reduce the risk of systemic recurrence anddeath among women with hormone receptor positive breast cancer regardless of age, menopausal status, eugene involvement, tumor size, HER2 status, and use of chemotherapy. Recommended duration of therapy is at least 5 years We have reviewed significant side effects of AI therapy that includes but not limited to arthralgia, hot flashes, osteopenia/osteoporosis, and risk of worsening pre-existing HTN/CAD. We have discussed that anastrozole is an oral medication taken once daily. The dose is 1 mg/day. Given that plans for radiation therapy is still pending, we agreed that Josselyn can start anastrozole in the meantime, and 2 days prior to starting radiation therapy. We have discussed resuming anastrozole 1-2 weeks after completion of radiation therapy to mitigate compiling side effects. Josselyn is in agreement and endorsed that she understands and agrees with the plan. We have discussed the utility of Oncotype Dx RS in assessing chemotherapy would confer benefit to decrease risk of recurrence in context of hormone receptor positive early stage node-negative breast cancer. Oncotype testing is approved for patients with node negative, hormone receptor positive breast cancer, to help obtain an individualized estimate of the risk of breast cancer recurrence. This information will be helpful in judging the absolute benefit from chemotherapy better than the Adjuvant! model. She would be willing to consider receiving adjuvant chemotherapy if the benefit is large enough, and we agreed to send off the test. Bone health: -No recent DEXA scan on file, will order DEXA scan to assess for baseline BMD -Patient is currently on vitamin D supplementation Recommendations/Plan: I have recommended the following: -Will order anastrozole 1 mg p.o. daily - Imaging: Will order DEXA scan to assess for baseline BMD -Will order Oncotype testing -Patient will meet with Dr. Grijalva to discuss plans for radiation therapy Follow-up: MD visit in 8 weeks or sooner if there are new concerns Counseling: Total time spent: 80 minutes with > 50% spend in discussion of above, [id number] time and coordination of care with the [...] hospitals. Patient to contact team via my DH portal or triage line with non urgent questions and concerns. Nichole Fowler MD Medical Oncology [facility] Heavy Equipment OperatorSupervisor Laundry, [facility] [employer] Office Cancer.[facility] * Eun Choe RN - 10/29/2023 10:[address] [facility] New Patient Medical Oncology Note SOCIAL ASSESSMENT: See [facility] social assessment information entered. 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 [ x ] yes [ ] no - [facility] Local Pharmacy: [facility] for mail order, [facility] in [place] FUNCTIONAL SCREENING: Balance difficulty: [ x ]no [ ]yes At risk for fall: [ x ] no [ ] yes If yes, actions implemented to prevent fall. Patient/family instructed to avoid independent ambulation. Use wheelchair and ask for assistance of staff while in the clinic. ADL [ x ] no limits [ ] needs dressing assistance [ ] needs meal assistance Assistive device:[ x ]none [ ]cane [ ]walker [ ]wheelchair [ ]other: explain PAIN ASSESSMENT: [ 0 ] out of 10 LEARNING STYLE: Learning Needs Assessment up to date (yearly) [ ] TEACHING: __ NCI ???Chemotherapy and You?? and folder given __ Specific chemotherapy literature provided and reviewed with patient VASCULAR ACCESS ASSESSMENT: getting chemo? [ ]yes [ ]no Need port? [ ] yes [ ] no documented in this encounter Plan of Treatment Upcoming Encounters Date Type Department Care Team (Late st Contact Info) Description 09/18/2024 10:30 AM EST Office Visit Hematology/Oncology at [address] [phone] Erica Yi APRN [address] [place] [address] DR MEDICAL ONCOLOGY [place], [place] [address] 09/18/2024 11:00 AM EST Infusion Hematology Oncology at [address] [phone] 10/01/2024 3:45 PM EST Office Visit Functional Islam Program at [place] [address] [place] [address] Gene Julien Jr., PT 12/23/2024 8:00 AM EST Appointment XRay at [address] [place] [address] River Ochoa MD [address] [place], [place] [address] 01/21/2025 1:00 PM EDT Office Visit Radiation Oncology at [address] [phone] Tory Salazar PA [facility] HEMATOLOGY [place] [address] documented as of this encounter Visit Diagnoses 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
--- OUTSIDE RECORDS SUMMARY | 2024-09-18 01:18 | XMS_ITS | Encounter Summary ---
Author Organization [facility] [place] [address] Care Team Providers Care Medical Device Sales Name Role Phone Kay Caldwell MD Primary Care Provider [phone] Encounter Details Date Type Department Care Team (Late st Contact Info) Description 10/29/2023 Notes Only Radiation Oncology at [address] [phone] Dottie Monzon, [facility] OFFICE OF CARE MANAGEMENT Social History Tobacco Use Types Packs/Day Years Used Date Smoking Tobacco: Former Cigarettes 2 15 0 11/11/1973 - 11/11/1988 Smokeless Tobacco: Never Comments:10-15 years quit 35 years ago Alcohol Use Standard Drinks/Week Comments Not Currently 0 (1 standard drink = 0.6 oz pur e alcohol) Recovering 41 years [facility] Utilities Answer Date Recorded In the past 12 months has [employer], gas, oil, or water [email or web address] threatened to shut off services in your [...] as of this encounter Progress Notes * Dottie Monzon, MEDICAL ASSISTANT INSTRUCTOR - 10/29/2023 12:40 PM EST Reason for Referral: Brief assessment of social and emotional needs. Met with Josselyn after her sim today to introduce myself and role of social director to assess/address barriers to getting to and through treatments; address support needs and connect with community services and resources as needed. SDOH Screening: no issues noted. Cancer Distress Screening: Family/Social Supports: Josselyn identified her Casey of 35 years as her primary support. She has a son who she has no contact with. She did identify a friend and her brother in law as supports. Living Situation/Daily Activities/Transportation: Josselyn manages her daily chores and activities. She does not expect any issues with transportation. 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 Her is retired too. She has medicare and [employer] for insurance. She did not identify any concerns re finances or insurance. Advance Directives: Josselyn has completed her advance directive. Requested a copy for her medical recor if she wants in on file in her DH record. Utilization of Community Resources: None at this time. Adjustment to Illness/Mental Health Concerns: Josselyn indicated she is coping as best she can. She feels well supported by her as he has been with her through all of this. She describes him edison advocate. Offered support. Identified Needs: Josselyn did not identify any specific needs at this time. Referrals: None at this time. Social Work Interventions: Brief assessment Supportive Counseling Advance care planning Plan: Informed pt of MEDICAL ASSISTANT INSTRUCTOR availability and contact information. Will follow to assess/address psychosocial needs. TODD Lopez, CELLULOID TRIMMER, OSW-C Business Continuity Strategy Director [facility] documented in this encounter Plan of Treatment Upcoming Encounters Date Type Department Care Team (Late st Contact Info) Description 09/18/2024 10:30 AM EST Office Visit Hematology/Oncology at [address] [phone] Erica Yi APR[address] MEDICAL ONCOLOGY [place], [place] [phone] 09/18/2024 11:00 AM EST Infusion Hematology Oncology at [address] [phone] 10/01/2024 3:45 PM EST Office Visit Functional Judaism Program at [address] [phone] Gene Julien Jr., PT 12/23/2024 8:00 AM EST Appointment XRay at [address] [place] [address] River Ochoa MD [address] [place] [address] 01/21/2025 1:00 PM EDT Office Visit Radiation Oncology at [address] [phone] Tory Salazar PA [facility] [place] [address] documented as of this encounter Visit Diagnoses Not on filedocumented in this encounter Care Teams Medical Device Sales Relationship Specialty Start Date End Date Kay Caldwell MD [address] [place] [address] [place] [address] PCP - General Family Medicine 08/15/22 documented as of this encounter
--- OUTSIDE RECORDS SUMMARY | 2024-09-18 01:18 | XMS_ITS | Encounter Summary ---
Author Organization Formerly [facility] [place] [address] Care Team Providers Care Solo Musician Name Role Phone Kay Caldwell MD Primary Care Provider +1 [phone] Encounter Details Date Type Department Care Team (Latest Contact Info) Description 10/06/2023 Travel Social History Tobacco Use Types Packs/Day Years Used Date Smoking Tobacco: Former Smokeless Tobacco: Never [facility] Utilities Answer Date Recorded [...] slept in a long-term (including now)? No 10/06/2023 Sex and Gender Information Value Date Recorded Sex Assigned at Not on file Gender Identity Not on file Sexual Orientation Not on file documented as of this encounter Plan of Treatment Upcoming Encounters Date Type Department Care Team (Late st Contact Info) Description 09/18/2024 10:30 AM EST Office Visit Hematology/Oncology at [address] [phone] Eric[address] Yi [address] MEDICAL ONCOLOGY [place], [place] [phone] 09/18/2024 11:00 AM EST Infusion Hematology Oncology at [address] [phone] 10/01/2024 3:45 PM EST Office Visit Functional Sikh Program at [address] [place] [address] Gene Julien Jr., PT 12/23/2024 8:00 AM EST Appointment XRay at [address] [place] [address] River Ochoa MD [address] [place], [place] [address] 01/21/2025 1:00 PM EDT Office Visit Radiation Oncology at [address] [phone] Tory Salazar PA [facility] HEMATOLOGY [place] [address] documented as of this encounter Visit Diagnoses Not on filedocumented in this encounter Care Teams Solo Musician Relationship Specialty Start Date End Date Kay Caldwell MD [address] [place] [address] [address] [place], [place] [address] PCP - General Family Medicine 08/15/22 documented as of this encounter
--- OUTSIDE RECORDS SUMMARY | 2024-09-18 01:18 | XMS_ITS | Encounter Summary ---
Author Organization [facility] [place] [address] Care Team Providers Care Special Warfare Boat Operator Name Role Phone Kay Caldwell MD Primary Care Provider +1 [phone] Encounter Details Date Type Department Care Team (Late st Contact Info) Description 08/01/2023 Interpretation Only Radiology Library at [facility] [place] [phone] Tory Salazar MD [facility] [place] [address] Social History Tobacco Use Types Packs/Day Years [...] 10:30 AM EST Office Visit Hematology/Oncology at [address] [phone] Eric[address] Yi [address] MEDICAL ONCOLOGY [place], [place] [phone] 09/18/2024 11:00 AM EST Infusion Hematology Oncology at [address] [phone] 10/01/2024 3:45 PM EST Office Visit Functional Church Program at [facility] [address] [place] [address] Gene Julien Jr., PT 12/23/2024 8:00 AM EST Appointment XRay at [address] [place] [phone] River Ochoa MD [address] [place], [place] [address] 01/21/2025 1:00 PM EDT Office Visit Radiation Oncology at [address] [phone] Tory Salazar PA [facility] DR [place] [address] documented as of this encounter Procedures Procedure Name Priority Date/Time Associated Diagnosis Comments FILM LIBRARY STORAGE ONLY MAMMO Routine 08/01/2023 9:30 AM EDT documented in this encounter Results * Film Library- Storage Only Mammo (08/01/2023 9:30 AM EDT) 08/16/2024 2:37 AM EDT Narrative RAD - 08/16/2024 2:37 AM EDT This exam is auto-finalizing. It's purpose is for storage only. Tory Salazar MD IMG FILM LIBRARY ORD ERABLES [place], [place] documented in this encounter Visit Diagnoses Not on filedocumented in this encounter Care Teams Special Warfare Boat Operator Relationship Specialty Start Date End Date Kay Caldwell MD [address] [place] [address] [place] [address] PCP - General Family Medicine 08/15/22 documented as of this encounter
--- OUTSIDE RECORDS SUMMARY | 2024-09-18 01:18 | XMS_ITS | Encounter Summary ---
Author Organization [facility] [place] [address] Care Team Providers Care Civil Engineering Intern Name Role Phone Kay Caldwell MD Primary Care Provider +1 [phone] Encounter Details Date Type Department Care Team (Late st Contact Info) Description 08/02/2023 Interpretation Only Radiology Library at [facility] [place] [phone] Lesa Kingston MD [facility] [place] [address] Social History Tobacco Use Types Packs/Day Years Used Date Smoking Tobacco: Former Smokeless Tobacco: Never [facility] Utilities Answer Date Recorded [...] AM EST Office Visit Hematology/Oncology at [address] [phone] Erica Yi [address] MEDICAL ONCOLOGY [place], [place] [phone] 09/18/2024 11:00 AM EST Infusion Hematology Oncology at [address] [phone] 10/01/2024 3:45 PM EST Office Visit Functional Christianity Program at [facility] [address] [place] [address] Gene Julien Jr., PT 12/23/2024 8:00 AM EST Appointment XRay at [address] [place] [phone] River Ochoa MD [address] [place], [place] [address] 01/21/2025 1:00 PM EDT Office Visit Radiation Oncology at [address] [phone] Tory Salazar PA [facility] [place] [address] documented as of this encounter Procedures Procedure Name Priority Date/Time Associated Diagnosis Comments FILM LIBRARY STORAGE ONLY MAMMO Routine 08/02/2023 9:35 AM EDT documented in this encounter Results * Film Library- Storage Only Mammo (08/02/2023 9:35 AM EDT) 07/24/2024 12:2 6 PM EDT Narrative [facility] - 07/24/2024 12:26 PM EDT This exam is auto-finalizing. It's purpose is for storage only. Lesa Kingston MD IMG FILM LIBRARY OR DERABLES [place], [place] documented in this encounter Visit Diagnoses Not on filedocumented in this encounter Care Teams Civil Engineering Intern Relationship Specialty Start Date End Date Kay Caldwell MD [address] [place] [address] [place] [address] PCP - General Family Medicine 08/15/22 documented as of this encounter
--- OUTSIDE RECORDS SUMMARY | 2024-09-18 01:18 | XMS_ITS | Encounter Summary ---
Author Organization [facility] [place] [address] Care Team Providers Care Flat Folding Machine Operator Name Role Phone Kay Caldwell MD Primary Care Provider +[phone] Reason for Visit * Consultation (Routine) - Closed Specialty Diagnoses / Procedures Referred By Contac t Referred To Contact Radiation Oncology Diagnoses Malignant neoplasm of upper-inner quadrant of right breast in female, estrogen receptor positive Procedures Simulation for Radiation Therapy Planning Monique Grijalva MD [facility] [place] [address] [facility] Rad Onc Office [address] [place] [id number] Referral ID Status Reason Start Date Expiration Date V isits Requested Visits Authorized [id number] Closed Consult, Test & Treat 10/29/2023 12/30/2023 5 5 Encounter Details Date Type Department Care Team (Latest Contact Info) Description 10/29/2023 11:30 AM EST Ancillary Appointment Radiation Oncology at [address] [phone] Monique Grijalva MD [facility] [place] [address] Malignant neoplasm of upper-inner quadrant of right breast in female, estrogen receptor positive Social History Tobacco Use Types Packs/Day Years Used Date Smoking Tobacco: Former Cigarettes 2 15 0 11/11/1973 - 11/11/1988 Smokeless Tobacco: Never Comments:10-15 years quit 35 years ago Alcohol Use Standard Drinks/Week Comments Not Currently 0 (1 standard drink = 0.6 oz pur e alcohol) Recovering 41 years [facility] Utilities Answer Date Recorded In [...] on file documented as of this encounter Patient Instructions * Patient Instructions* Izzy Livingston RN - 10/29/2023 11:30 AM EST Information for Patients receiving radiation therapy to the Breast Approximately two weeks after your first treatment, you may begin to experience side effects causedby the radiation. These effects may continue throughout the treatment period and not start improving until 1-2 weeks after treatment is completed. Your doctor will tell you which side effects you aremost likely to experience, when you will notice them and how long they might last. It is important to follow the appropriate instructions to minimize your discomfort. Please stop taking homeopathic remedy for anxiety/sleep during radiation therapy. Skin Care Wash skin in the treatment field with lukewarm water and mild or moisturizing, unscented soap daily. Blot skin dry with a soft towel. Do not apply any ointment, salve, deodorant, perfume, cologne, cosmetic or self- remedy to the treatment area while you are undergoing radiation and for 1-2 weeks following treatment. An all natural deodorant with no aluminum can be used if necessary. Moisturizing cream will be provided for you. This may be used in the treatment area once daily beginning on your first treatment day. Do not apply 2 hours before your radiation treatments. As dryness/redness develop you can use this more often. Do not rub or scratch the skin in the treatment field. This includes shaving unless you use an electric razor. If your skin becomes dry or itchy, tell your nurse or doctor. If necessary, your doctor may order a medication specifically for this problem. Do not use hot water bottles, heating lights, electric heating pads, or hot packs to the treatment area. Keep treated areas out of the sun throughout the treatment period. Be careful of sun exposure to the treatment field for one year following treatment. Please use SPF> 30 to all exposed areas of skin and limit sun exposure. Avoid tight fitting clothes. Examine your skin in the treatment area daily and watch for changes. If you cannot reach the whole treatment field ask a family member to look at it and apply cream as needed. Be careful to keep the area under your breast clean and dry as this area can get irritated first. You will meet with your nurse and doctor weekly. They will check your skin and help you with any side effects you are having. Please ask to see the nurse if you have concerns in between these days. During the last weeks of treatment you may notice some peeling of skin and/or a moist reaction. Be sure to let us know if this happens so we can provide you with further skin care instructions.. Continue to stay active, walk daily, eat healthy foods and drink several glasses of water each day. Fatigue You may notice that you feel unusually tired towards the end of treatment. This is not unusual. We recommend that you pace your activities and plan for rest periods to avoid becoming over-tired. Feel free to direct any questions or concerns you may have related to your treatment to your nurse or doctor. [facility] Radiation Oncology Our normal business hours are: Saturday - Saturday 8 AM to 5 PM [place], [place], [place] For emergent situations after hours please call for either location and ask for the Radiation Oncologist patron attendant. documented in this encounter Progress Notes * Monique Grijalva MD - 10/29/2023 11:30 AM EST Here for sim. 10/09/23 reexcision. Path: Neg. S: No new c/o. O: Surg incision @ 3:00 R breast well healed. Sim: Breast bd immobilization; wire on R breast lumpectomy scar, flat bbs around R breast perimeter, big round bb @ 12:00 R breast; CT through chest flat & then angled; VMAT/3D xrt planned. She tolerated sim well, w/o problem. Tx Plan: VMAT/3D xrt. Start xrt 1-2 wks. Advised to not take homeopathic herbal liquid for sleeping during xrt. Dr. Janeth mcdaniel for systemic tx today. documented in this encounter Plan of Treatment Upcoming Encounters Date Type Department Care Team (Late st Contact Info) Description 09/18/2024 10:30 AM EST Office Visit Hematology/Oncology at [address] [phone] Erica Yi APRN [address] [place] [address] DR MEDICAL ONCOLOGY [place], [place] [phone] 09/18/2024 11:00 AM EST Infusion Hematology Oncology at [address] [phone] 10/01/2024 3:45 PM EST Office Visit Functional Taoist Program at [facility] [address] [place] [address] Gene Julien Jr., PT 12/23/2024 8:00 AM EST Appointment XRay at [address] [place] [address] River Ochoa MD [address] [place] [address] 01/21/2025 1:00 PM EDT Office Visit Radiation Oncology at [address] [phone] Tory Salazar PA [facility] HEMATOLOGY [place] [address] documented as of this encounter Visit Diagnoses Diagnosis Malignant neoplasm of upper-inner quadrant of right breast in female, estrogen receptor positive documented in this encounter Care Teams Flat Folding Machine Operator Relationship Specialty Start Date End Date Kay Caldwell MD [address] [place] [address] [address] [place], [place] [address] PCP - General Family Medicine 08/15/22 documented as of this encounter
--- OUTSIDE RECORDS SUMMARY | 2024-09-18 01:18 | XMS_ITS | Encounter Summary ---
Author Organization [facility] [place] [address] Care Team Providers Care Stripper Opaquer Name Role Phone Kay Caldwell MD Primary Care Provider +1 [phone] Encounter Details Date Type Department Care Team (Late st Contact Info) Description 08/09/2023 8:30 AM EDT Ancillary Procedure Radiology Library at [facility] [place] [address] Lesa Kingston MD [facility] [place] [address] Social History Tobacco Use Types Packs/Day Years [...] AM EST Office Visit Hematology/Oncology at [address] [phone] Erica Yi APRN [address] [place] [address] DR MEDICAL ONCOLOGY [place], [place] [address] 09/18/2024 11:00 AM EST Infusion Hematology Oncology at [address] [phone] 10/01/2024 3:45 PM EST Office Visit Functional Baptism Program at [facility] [address] [place] [address] Gene Julien Jr., PT 12/23/2024 8:00 AM EST Appointment XRay at [address] [place] [phone] River Ochoa MD [address] [place] [address] 01/21/2025 1:00 PM EDT Office Visit Radiation Oncology at [address] [phone] Tory Salazar PA [facility] [place] [address] documented as of this encounter Procedures Procedure Name Priority Date/Time Associated Diagnosis Comments FILM LIBRARY STORAGE ONLY ULTRASOUND STUDY Routine 08/09/2023 8:30 AM EDT documented in this encounter Results * Film Library- Storage Only Ultrasound Study (08/09/2023 8:30 AM EDT) 07/24/2024 12:2 6 PM EDT Narrative [facility] - 07/24/2024 12:26 PM EDT This exam is auto-finalizing. It's purpose is for storage only. Lesa Kingston MD IMG FILM LIBRARY OR DERABLES [place], [place] documented in this encounter Visit Diagnoses Not on filedocumented in this encounter Care Teams Stripper Opaquer Relationship Specialty Start Date End Date Kay Caldwell MD [address] [place] [address] [address] [place], [place] [address] PCP - General Family Medicine 08/15/22 documented as of this encounter
--- OUTSIDE RECORDS SUMMARY | 2024-09-18 01:18 | XMS_ITS | Encounter Summary ---
Author Organization [facility] [place] [address] Care Team Providers Care Weapons Engineer Name Role Phone Kay Caldwell MD Primary Care Provider [phone] [phone] Encounter Details Date Type Department Care Team (Late st Contact Info) Description 08/09/2023 Interpretation Only Radiology Library at [facility] [place] [phone] Lesa Kingston MD [facility] [place] [address] Social History Tobacco Use Types Packs/Day Years Used Date Smoking Tobacco: Former Smokeless Tobacco: Never [facility] Utilities Answer Date Recorded In the [...] AM EST Office Visit Hematology/Oncology at [address] [phone] Erica Yi [address] MEDICAL ONCOLOGY [place], [place] [phone] 09/18/2024 11:00 AM EST Infusion Hematology Oncology at [address] [phone] 10/01/2024 3:45 PM EST Office Visit Functional Denominational Program at [facility] [address] [place] [address] Gene Julein Jr., PT 12/23/2024 8:00 AM EST Appointment XRay at [address] [place] [phone] River Ochoa MD [address] [place], [place] [address] 01/21/2025 1:00 PM EDT Office Visit Radiation Oncology at [address] [phone] Tory Salazar PA [facility] [place] [address] documented as of this encounter Procedures Procedure Name Priority Date/Time Associated Diagnosis Comments FILM LIBRARY STORAGE ONLY ULTRASOUND STUDY Routine 08/09/2023 8:30 AM EDT documented in this encounter Results * Film Library- Storage Only Ultrasound Study (08/09/2023 8:30 AM EDT) 07/24/2024 12:2 6 PM EDT Narrative [facility] - 07/24/2024 12:26 PM EDT This exam is auto-finalizing. It's purpose is for storage only. Lesa Kingston MD IMG FILM LIBRARY OR DERABLES [place], [place] documented in this encounter Visit Diagnoses Not on filedocumented in this encounter Care Teams Weapons Engineer Relationship Specialty Start Date End Date Kay Caldwell MD [address] [place] [address] [address] [place] [address] PCP - General Family Medicine 08/15/22 documented as of this encounter
--- OUTSIDE RECORDS SUMMARY | 2024-09-18 01:18 | XMS_ITS | Encounter Summary ---
[place] [address] Care Team Providers Care Ensemble Member Name Role Phone Kay Calwdell MD Primary Care Provider [phone] Reason for Referral * Consultation (Routine) - Authorized Specialty Diagnoses / Procedures Referred By Contac t Referred To Contact Hematology and Oncology Diagnoses Malignant neoplasm of right female breast, unspecified estrogen receptor status, unspecified site of breast Dmitri Schultz MD [address] [place] [address] [facility] Onc [address] [place] [address] Referral ID Status Reason Start Date Expiration Date Visits Requested Visits Authorized [id number] Authorized Consult, Test & Treat PCP Updated and/or Approved 3 11/05/2024 6 6 Encounter Details Date Type Department Care Team (Late st Contact Info) Description 11/06/2023 Transcribe Orders eDH Incoming Referrals [phone] Dmitri Schultz MD [address] [place] [address] Malignant neoplasm of right female breast, unspecified estrogen receptor status, unspecified site of breast Social History Tobacco Use Types Packs/Day Years Used Date Smoking Tobacco: Former Cigarettes 2 15 0 11/11/1973 - 11/11/1988 Smokeless Tobacco: Never Comments:10-15 years quit 3 5 years ago Alcohol Use Standard Drinks/Week Comments Not Currently 0 (1 standard drink = 0.6 oz pur e alcohol) Recovering 41 years [facility] Utilities Answer Date Recorded In the [...] 10:30 AM EST Office Visit Hematology/Oncology at [address] [phone] Erica Yi APRN [address] [place] [address] 09/18/2024 11:00 AM EST Infusion Hematology Oncology at [address] [phone] 10/01/2024 3:45 PM EST Office Visit Functional Zoroastrian Program at [facility] [address] [place] [address] Gene Julien Jr., PT 12/23/2024 8:00 AM EST Appointment XRay at [address] [place] [address] River Ochoa MD [address] [place], [place] [address] 01/21/2025 1:00 PM EDT Office Visit Radiation Oncology at [address] [phone] Tory Salazar PA [facility] DR HEMATOLOGY [place] [address] Scheduled Referrals Name Type Priority Associated Diagnoses Orde r Schedule Referral to Hematology and Oncology Outpatient Referral Routine Malignant neoplasm of right female breast, unspecified estrogen receptor status, unspecified site of breast Ordered: 11/06/2023 documented as of this encounter Visit Diagnoses Diagnosis Malignant neoplasm of right female breast, unspecified estrogen receptor status, unspecified site of breast documented in this encounter Care Teams Ensemble Member Relationship Specialty Start Date End Date Kay Caldwell MD [address] [place] [address] [address] [place], [place] [address] PCP - General Family Medicine 08/15/22 documented as of this encounter
--- OUTSIDE RECORDS SUMMARY | 2024-09-18 01:18 | XMS_ITS | Encounter Summary ---
Author Organization [facility] [place] [address] Care Team Providers Care Research Manager Name Role Phone Kay Caldwell MD Primary Care Provider [phone] [phone] Encounter Details Date Type Department Care Team (Late st Contact Info) Description 09/18/2023 Interpretation Only [address] [phone] Dmitri Schultz MD [address] [place] [phone] Social History Tobacco Use Types Packs/Day Years [...] AM EST Office Visit Hematology/Oncology at [address] [phone] Erica Yi APRN [address] [place] [address] MEDICAL ONCOLOGY [place], [place] [address] 09/18/2024 11:00 AM EST Infusion Hematology Oncology at [address] [phone] 10/01/2024 3:45 PM EST Office Visit Functional Congregational Program at [facility] [address] [place] [address] Gene Julien Jr., PT 12/23/2024 8:00 AM EST Appointment XRay at [address] [place] [address] River Ochoa MD [address] [place], [place] [address] 01/21/2025 1:00 PM EDT Office Visit Radiation Oncology at [address] [phone] Tory Salazar PA [facility] DR [place] [address] documented as of this encounter Procedures Procedure Name Priority Date/Time Associated Diagnosis Comments MAMMO SPECIMEN Routine 09/18/2023 2:17 PM EST documented in this encounter Results * Mammo Specimen (09/18/2023 2:17 PM EST) PT CLASS O RAD ADMITDTTM RAD PT RAD INFO [id number]^S CHROER^PETER ^MANJIT RAD EXAM DESC MASPEC^ARLETH SPECIMEN^RIS RAD Anatomical Region Laterality Modality Breast N/A Mammography Impressions 09/18/2023 4:20 PM EST The mammographic marker is within the specimen. Thank you for letting us participate in the care of this patient. ??If you are a health care provider and have any questions regarding this report, please contact the number below. ??For patients who have questions please contact the health career development coordinator/teacher that requested your imaging first. ? Electronically signed by: Emeka Vázquez MD, [facility] ([phone]), at 09/18/2023 4:20 PM Narrative 09/18/2023 4:20 PM EST EXAMINATION: ARLETH SPECIMEN CLINICAL HISTORY: lumpectomy TECHNIQUE: Breast specimen radiograph COMPARISON: None FINDINGS: See impression Procedure Note Emeka Vázquez MD - 09/18/2023 EXAMINATION: ARLETH SPECIMEN CLINICAL HISTORY: lumpectomy TECHNIQUE: Breast specimen radiograph COMPARISON: None FINDINGS: See impression IMPRESSION The mammographic marker is within the specimen. Thank you for letting us participate in the care of this patient. If youare a health care provider and have any questions regarding this report,please contact the number below. For patients who have questions please contactthe health career development coordinator/teacher that requested your imaging first. Dmitri Schultz MD IMG MAMMO [place] documented in this encounter Visit Diagnoses Not on filedocumented in this encounter Care Teams Research Manager Relationship Specialty Start Date End Date Kay Caldwell MD [address] [place] [address] [address] [place] [address] PCP - General Family Medicine 08/15/22 documented as of this encounter
--- OUTSIDE RECORDS SUMMARY | 2024-09-18 01:18 | XMS_ITS | Encounter Summary ---
Author Organization [place] [address] Care Team Providers Care Firesetter Name Role Phone Kay Caldwell MD Primary Care Provider +1 [phone] Encounter Details Date Type Department Care Team (Late st Contact Info) Description 11/19/2023 Telephone Radiation Oncology at [address] [phone] Izzy Livingston, RN Social History Tobacco Use Types Packs/Day Years Used Date Smoking Tobacco: Former Cigarettes 2 15 0 11/11/1973 - 11/11/1988 Smokeless Tobacco: Never Comments:10-15 years quit 35 years ago Alcohol Use Standard Drinks/Week Comments Not Currently 0 (1 standard drink = 0.6 oz pur e alcohol) Recovering 41 years [facility] Utilities Answer Date Recorded In the past 12 months has [employer] electric, gas, oil, or water company threatened [...] encounter Miscellaneous Notes * Telephone Encounter - Izzy Livingston RN - 11/19/2023 5:03 PM EST Background: Dr. Grijalva requested that I please call Dr. Caldwell's office & communicate that Ctsim showed heart & lung findings which I'm wondering if/hoping that Dr. Caldwell would be amenableto following/managing & that my note & Ctsim report being faxed? I called PCP office and left voicemail message with the above information along with clinic contactinformation and request for call back with confirmation of message receipt. documented in this encounter Plan of Treatment Upcoming Encounters Date Type Department Care Team (Late st Contact Info) Description 09/18/2024 10:30 AM EST Office Visit Hematology/Oncology at [address] [phone] Erica Yi APRN [address] [place] [address] DR MEDICAL ONCOLOGY [place], [place] [phone] 09/18/2024 11:00 AM EST Infusion Hematology Oncology at [address] [phone] 10/01/2024 3:45 PM EST Office Visit Functional Gnosticist Program at [facility] [address] [place] [address] Gene Julien Jr., PT 12/23/2024 8:00 AM EST Appointment XRay at [address] [place] [address] River Ochoa MD [address] [place] [address] 01/21/2025 1:00 PM EDT Office Visit Radiation Oncology at [address] [phone] Tory Salazar PA [facility] [place] [address] documented as of this encounter Visit Diagnoses Not on filedocumented in this encounter Care Teams Firesetter Relationship Specialty Start Date End Date Kay Caldwell MD [address] [place] [address] [address] [place] [address] PCP - General Family Medicine 08/15/22 documented as of this encounter
--- OUTSIDE RECORDS SUMMARY | 2024-09-18 01:18 | XMS_ITS | Encounter Summary ---
Author Organization [facility] [place] [address] Care Team Providers Care Government Relations Analyst Name Role Phone Kay Caldwell MD Primary Care Provider +1 [phone] Encounter Details Date Type Department Care Team (Late st Contact Info) Description 11/05/2023 Telephone Radiation Oncology at [address] [phone] Yesenia Wong Social History Tobacco Use Types Packs/Day Years Used Date Smoking Tobacco: Former Cigarettes 2 15 0 11/11/1973 - 11/11/1988 Smokeless Tobacco: Never Comments:10-15 years quit 35 years ago Alcohol Use Standard Drinks/Week Comments Not Currently 0 (1 standard drink = 0.6 oz pur e alcohol) Recovering 41 years [facility] Utilities Answer Date Recorded In [...] encounter Miscellaneous Notes * Telephone Encounter - Yesenia Wong - 11/05/2023 11:02 AM EST Patients called and they are looking to have the dxa scan done yolande. I let him know that wedid have the order and we needed to see if the scan needed authorization, once we had that information we could then send the order to [facility] and then they would call them to schedule. He was fine with that documented in this encounter Plan of Treatment Upcoming Encounters Date Type Department Care Team (Late st Contact Info) Description 09/18/2024 10:30 AM EST Office Visit Hematology/Oncology at [address] [phone] Erica Yi APRN [address] [place] [address] DR MEDICAL ONCOLOGY [place], [place] [phone] 09/18/2024 11:00 AM EST Infusion Hematology Oncology at [address] [phone] 10/01/2024 3:45 PM EST Office Visit Functional Uatsdin Program at [facility] [address] [place] [address] Gene Julien Jr., PT 12/23/2024 8:00 AM EST Appointment XRay at [address] [place] [address] River Ochoa MD [address] [place] [address] 01/21/2025 1:00 PM EDT Office Visit Radiation Oncology at [address] [phone] Tory Salazar PA [facility] HEMATOLOG[place] [address] documented as of this encounter Visit Diagnoses Not on filedocumented in this encounter Care Teams Government Relations Analyst Relationship Specialty Start Date End Date Kay Caldwell MD [address] [place] [address] [place] [address] PCP - General Family Medicine 08/15/22 documented as of this encounter
--- OUTSIDE RECORDS SUMMARY | 2024-09-18 01:18 | XMS_ITS | Encounter Summary ---
Author Organization [facility] [place] [address] Care Team Providers Care Cloth Shrinking Machine Operator Helper Name Role Phone Kay Caldwell MD Primary Care Provider +1 [phone] Encounter Details Date Type Department Care Team (Latest Contact Info) Description 11/18/2023 Travel Social History Tobacco Use Types Packs/Day Years Used Date Smoking Tobacco: Former Cigarettes 2 15 0 11/11/1973 - 11/11/1988 Smokeless Tobacco: Never Comments:10-15 years quit 35 years ago Alcohol Use Standard Drinks/Week Comments Not Currently 0 (1 standard drink = 0.6 oz pur e alcohol) Recovering 41 years [place] Utilities Answer Date Recorded In the past [...] AM EST Office Visit Hematology/Oncology at [address] [phone] Erica Yi APRN [address] [place] [address] DR MEDICAL ONCOLOGY [place], [place] [phone] 09/18/2024 11:00 AM EST Infusion Hematology Oncology at [address] [phone] 10/01/2024 3:45 PM EST Office Visit Functional Alevism Program at [facility] [address] [place] [address] Gene Julien Jr., PT 12/23/2024 8:00 AM EST Appointment XRay at [address] [place] [address] River Ochoa MD [address] [place], [place] [address] 01/21/2025 1:00 PM EDT Office Visit Radiation Oncology at [address] [phone] Tory Salazar PA [facility] DR [place] [address] documented as of this encounter Visit Diagnoses Not on filedocumented in this encounter Care Teams Cloth Shrinking Machine Operator Helper Relationship Specialty Start Date End Date Kay Caldwell MD [address] [place] [address] PCP - General Family Medicine 08/15/22 documented as of this encounter
--- OUTSIDE RECORDS SUMMARY | 2024-09-18 01:18 | XMS_ITS | Encounter Summary ---
Author Organization [facility] [place] [address] Care Team Providers Care Traffic Or System Dispatcher Name Role Phone Kay Caldwell MD Primary Care Provider [phone] [phone] Encounter Details Date Type Department Care Team (Late st Contact Info) Description 11/20/2023 Telephone Radiation Oncology at [address] [phone] Izzy Livingston, RN Social History Tobacco Use Types Packs/Day Years Used Date Smoking Tobacco: Former Cigarettes 2 15 0 11/11/1973 - 11/11/1988 Smokeless Tobacco: Never Comments:10-15 years quit 35 years ago Alcohol Use Standard Drinks/Week Comments Not Currently 0 (1 standard drink = 0.6 oz pur e alcohol) Recovering 41 years [facility] Utilities Answer Date Recorded In the past 12 months has [employer] electric, gas, oil, or water company threatened [...] encounter Miscellaneous Notes * Telephone Encounter - zIzy Livingston RN - 11/20/2023 9:18 AM EST Telephone call back from Ronit at PCP office confirming receipt of message from yesterday and that PCP will manage. Dr. Grijalva updated via basket. documented in this encounter Plan of Treatment Upcoming Encounters Date Type Department Care Team (Late st Contact Info) Description 09/18/2024 10:30 AM EST Office Visit Hematology/Oncology at [address] [phone] Erica Yi APRN [address] [place] [address] [place] [address] 09/18/2024 11:00 AM EST Infusion Hematology Oncology at [address] [phone] 10/01/2024 3:45 PM EST Office Visit Functional Mandaen Program at [facility] [address] [place] [phone] Gene Julien Jr., PT 12/23/2024 8:00 AM EST Appointment XRay at [address] [place] [address] River Ochoa MD [address] [place] [address] 01/21/2025 1:00 PM EDT Office Visit Radiation Oncology at [address] [phone] Tory Salazar PA [facility] DR HEMATOLOGY [place] [address] documented as of this encounter Visit Diagnoses Not on filedocumented in this encounter Care Teams Traffic Or System Dispatcher Relationship Specialty Start Date End Date Kay Caldwell MD [address] [place] [address] [address] [place] [address] PCP - General Family Medicine 08/15/22 documented as of this encounter
--- OUTSIDE RECORDS SUMMARY | 2024-09-18 01:18 | XMS_ITS | Encounter Summary ---
Author Organization [facility] [place] [address] Care Team Providers Care Plastic Tile Setter Name Role Phone Kay Caldwell MD Primary Care Provider [phone] Encounter Details Date Type Department Care Team (Late st Contact Info) Description 11/05/2023 Telephone Hematology/Oncology at [address] [phone] Yesenia Wong Social History Tobacco Use Types Packs/Day Years Used Date Smoking Tobacco: Former Cigarettes 2 15 0 11/11/1973 - 11/11/1988 Smokeless Tobacco: Never Comments:10-15 years quit 35 years ago Alcohol Use Standard Drinks/Week Comments Not Currently 0 (1 standard drink = 0.6 oz pur e alcohol) Recovering 41 years [facility] Utilities Answer Date Recorded In the past 12 months has e electric, gas, oil, or water [employer] threatened to shut off services in your [...] AM EST Office Visit Hematology/Oncology at [address] [phone] Erica Yi [address] MEDICAL ONCOLOGY [place], [place] [phone] 09/18/2024 11:00 AM EST Infusion Hematology Oncology at [address] [phone] 10/01/2024 3:45 PM EST Office Visit Functional Pentecostal Program at [facility] [address] [place] [address] Gene Julien Jr., PT 12/23/2024 8:00 AM EST Appointment XRay at [address] [place] [phone] River Ochoa MD [address] [place], [place] [address] 01/21/2025 1:00 PM EDT Office Visit Radiation Oncology at [address] [phone] Tory Salazar PA [facility] DR HEMATOLOGY [place] [address] documented as of this encounter Visit Diagnoses Not on filedocumented in this encounter Care Teams Plastic Tile Setter Relationship Specialty Start Date End Date Kay Caldwell MD [address] [place] [address] [place] [address] PCP - General Family Medicine 08/15/22 documented as of this encounter
--- OUTSIDE RECORDS SUMMARY | 2024-09-18 01:18 | XMS_ITS | Encounter Summary ---
Author Organization [facility] [place] [address] Care Team Providers Care Unbundler Name Role Phone Kay Caldwell MD Primary Care Provider +1 [phone] Encounter Details Date Type Department Care Team (Latest Contact Info) Description 11/22/2023 Travel Social History Tobacco Use Types Packs/Day Years Used Date Smoking Tobacco: Former Cigarettes 2 15 0 11/11/1973 - 11/11/1988 Smokeless Tobacco: Never Comments:10-15 years quit 35 years ago Alcohol Use Standard Drinks/Week Comments Not Currently 0 (1 standard drink = 0.6 oz pur e alcohol) Recovering 41 years [facility] Utilities Answer Date Recorded In the [...] 10:30 AM EST Office Visit Hematology/Oncology at [address] [phone] Erica Yi APRN [address] [place] [address] DR MEDICAL ONCOLOGY [place], [place] [phone] 09/18/2024 11:00 AM EST Infusion Hematology Oncology at [address] [phone] 10/01/2024 3:45 PM EST Office Visit Functional Religion Program at [facility] [address] [place] [address] Gene Julien Jr., PT 12/23/2024 8:00 AM EST Appointment XRay at [address] [place] [address] River Ochoa MD [address] [place], [place] [address] 01/21/2025 1:00 PM EDT Office Visit Radiation Oncology at [address] [phone] Tory Salazar PA [facility] DR HEMATOLOGY [place] [address] documented as of this encounter Visit Diagnoses Not on filedocumented in this encounter Care Teams Unbundler Relationship Specialty Start Date End Date Kay Caldwell MD [address] [place] [address] PCP - General Family Medicine 08/15/22 documented as of this encounter
--- OUTSIDE RECORDS SUMMARY | 2024-09-18 01:18 | XMS_ITS | Encounter Summary ---
[place] [address] Care Team Providers Care Sports Team Marketing Intern Name Role Phone Kay Caldwell MD Primary Care Provider [phone] [phone] Reason for Visit * Reason Onset Date Comments Other 11/05/202311/05 - Oncotype submitted Encounter Details Date Type Department Care Team (Late st Contact Info) Description 11/05/2023 Telephone Hematology [place] [phone] Lourdes Huber Other (11/05 - Oncotype submitted) Social History Tobacco Use Types Packs/Day Years Used Date Smoking Tobacco: Former Cigarettes 2 15 0 11/11/1973 - 11/11/1988 Smokeless Tobacco: Never Comments:10-15 years quit 35 years ago Alcohol Use Standard Drinks/Week Comments Not Currently 0 (1 standard drink = 0.6 oz pur e alcohol) Recovering 41 years [facility] Utilities Answer Date Recorded In the past 12 months has [employer], gas, oil, or water [employer] threatened to shut off services in your [...] 10:30 AM EST Office Visit Hematology/Oncology at [address] [phone] Erica Yi APRN [address] [place] [address] [place] [address] 09/18/2024 11:00 AM EST Infusion Hematology Oncology at [address] [phone] 10/01/2024 3:45 PM EST Office Visit Functional Congregational Program at [facility] [address] [place] [address] Gene Julien Jr., PT 12/23/2024 8:00 AM EST Appointment XRay at [address] [place] [phone] River Ochoa MD [address] [place] [address] 01/21/2025 1:00 PM EDT Office Visit Radiation Oncology at [address] [phone] Tory Salazar PA [facility] [place] [address] documented as of this encounter Visit Diagnoses Not on filedocumented in this encounter Care Teams Sports Team Marketing Intern Relationship Specialty Start Date End Date Kay Caldwell MD [address] [place] [address] [place] [address] PCP - General Family Medicine 08/15/22 documented as of this encounter
--- OUTSIDE RECORDS SUMMARY | 2024-09-18 01:18 | XMS_ITS | Encounter Summary ---
[place] [address] Care Team Providers Care Restrooms Or Lounges Maid Name Role Phone Kay Caldwell MD Primary Care Provider [phone] Encounter Details Date Type Department Care Team (Late st Contact Info) Description 06/05/2023 Telephone [place] [phone] Toshia Phillips RN Social History Tobacco Use Types Packs/Day Years Used Date Smoking Tobacco: Former Smokeless Tobacco: Never Sex and Gender Information Value Date Recorded Sex Assigned at Not on file Gender Identity Not on file Sexual Orientation Not on file documented as of this encounter Miscellaneous Notes * Telephone Encounter - Toshia Phillips RN - 06/05/2023 10:32 AM EDT Outgoing call to [facility] in response to VM left on inspector soldering line in regards to patient's LDN prescriptions of 1.5mg and 4.5mg. Pharmacy wanted to know if they are able to switch from those two tablets to one 6.0mg tablet and wanted to know how many refills. Pharmacy stated that the patient is dispensed 90 at a time. Discussed with Jazmín Santiago APRN- stated she will allow the switch and one year of refills. Pharmacy voiced understanding. documented in this encounter Plan of Treatment Upcoming Encounters Date Type Department Care Team (Late st Contact Info) Description 09/18/2024 10:30 AM EST Office Visit Hematology/Oncology at [address] [phone] Erica Yi APRN [address] [place] [address] DR MEDICAL ONCOLOGY [place], [place] [address] 09/18/2024 11:00 AM EST Infusion Hematology Oncology at [address] [phone] 10/01/2024 3:45 PM EST Office Visit Functional Restorationism Program at [address] [place] [address] Gene Julien Jr., PT 12/23/2024 8:00 AM EST Appointment XRay at [address] [place] [address] River Ochoa MD [address] [place], [place] [address] 01/21/2025 1:00 PM EDT Office Visit Radiation Oncology at [address] [phone] Tory Salazar PA [facility] DR HEMATOLOGY [place] [address] documented as of this encounter Visit Diagnoses Not on filedocumented in this encounter Care Teams Restrooms Or Lounges Maid Relationship Specialty Start Date End Date Kay Caldwell MD [address] [place] [address] [address] [place] [address] PCP - General Family Medicine 08/15/22 documented as of this encounter
--- OUTSIDE RECORDS SUMMARY | 2024-09-18 01:18 | XMS_ITS | Encounter Summary ---
Author Organization [facility] [place] [address] Care Team Providers Care Court Administrator Name Role Phone Kay Caldwell MD Primary Care Provider +1 [phone] Encounter Details Date Type Department Care Team (Latest Contact Info) Description 08/12/2023 Travel Social History Tobacco Use Types Packs/Day [...] AM EST Office Visit Hematology/Oncology at [address] [phone] Erica Yi APRN [address] [place] [address] DR MEDICAL ONCOLOGY [place], [place] [address] 09/18/2024 11:00 AM EST Infusion Hematology Oncology at [address] [phone] 10/01/2024 3:45 PM EST Office Visit Functional Sikhism Program at [facility] [address] [place] [address] Gene Julien Jr., PT 12/23/2024 8:00 AM EST Appointment XRay at [facility] [place] [address] River Ochoa MD [address] [place] [address] 01/21/2025 1:00 PM EDT Office Visit Radiation Oncology at [address] [phone] Tory Salazar PA [facility] DR [place] [address] documented as of this encounter Visit Diagnoses Not on filedocumented in this encounter Care Teams Court Administrator Relationship Specialty Start Date End Date Kay Caldwell MD [address] [place] [address] [place] [address] PCP - General Family Medicine 08/15/22 documented as of this encounter
--- OUTSIDE RECORDS SUMMARY | 2024-09-18 01:18 | XMS_ITS | Encounter Summary ---
Author Organization [facility] [place] [address] Care Team Providers Care Metal Casket Assembler Name Role Phone Kay Caldwell MD Primary Care Provider [phone] [phone] Encounter Details Date Type Department Care Team (Latest Contact Info) Description 10/11/2023 Travel Social History Tobacco Use Types Packs/Day Years Used Date Smoking Tobacco: Former Cigarettes 2 15 Smokeless Tobacco: Never Comments:10-15 years quit 35 years ago Alcohol Use Standard Drinks/Week Comments Not Currently 0 (1 standard drink = 0.6 oz pur e alcohol) Recovering 41 years [facility] Utilities Answer Date Recorded In the past [...] place to sleep or slept in a halfway (including now)? No 10/06/2023 Sex and Gender Information Value Date Recorded Sex Assigned at Not on file Gender Identity Not on file Sexual Orientation Not on file documented as of this encounter Plan of Treatment Upcoming Encounters Date Type Department Care Team (Late st Contact Info) Description 09/18/2024 10:30 AM EST Office Visit Hematology/Oncology at [address] [phone] Erica Yi APRN [address] [place] [address] DR MEDICAL ONCOLOGY [place], [place] [phone] 09/18/2024 11:00 AM EST Infusion Hematology Oncology at [address] [phone] 10/01/2024 3:45 PM EST Office Visit Functional Confucianism Program at [address] [place] [address] Gene Julien Jr., PT 12/23/2024 8:00 AM EST Appointment XRay at [address] [place] [phone] River Ochoa MD [address] [place] [address] 01/21/2025 1:00 PM EDT Office Visit Radiation Oncology at [address] [phone] [facility] [place] [address] documented as of this encounter Visit Diagnoses Not on filedocumented in this encounter Care Teams Metal Casket Assembler Relationship Specialty Start Date End Date Kay Caldwell MD [address] [place] [address] [address] [place], [place] [address] PCP - General Family Medicine 08/15/22 documented as of this encounter
--- OUTSIDE RECORDS SUMMARY | 2024-09-18 01:18 | XMS_ITS | Encounter Summary ---
[place] [address] Care Team Providers Care Entry Level Chemist Name Role Phone Kay Caldwell MD Primary Care Provider [phone] [phone] Encounter Details Date Type Department Care Team (Latest Contact Info) Description 09/18/2023 4:16 PM EST - 09/18/2023 11:59 PM [facility] Hospital [place] [address] Discharge Disposition: Home Social History Tobacco Use Types Packs/Day Years Used Date Smoking Tobacco: Former Smokeless Tobacco: Never Sex and Gender Information Value Date Recorded Sex Assigned at Not on file Gender Identity Not on file Sexual Orientation Not on file documented as of this encounter Medications at Time of Discharge Medication Sig Dispensed Refills Start Date End Date cholecalciferol, Vitamin D3, 50 mcg (2,000 unit) [...] daily. HERBAL DRUGS ORAL Take by mouth. [place] Wort, lemon balm, passiflora, leonorus, hypericum ACETAMINOPHEN ORAL Take 2 tablets by mouth as needed. lisinopriL (Zestril) 10 mg Tablet 06/27/2022 omeprazole (PriLOSEC) 20 mg Capsule, Delayed Release(E.C.) 06/27/2022 simvastatin (Zocor) 20 mg Tablet nightly. 07/02/2022 estrogens, conjugated, (Premarin) 0.3 mg tablet Take by mouth. 06/25/2022 10/07/2023 estrogens, conjugated, (Premarin) 0.625 mg/gram Cream Premarin [...] AM EST Office Visit Hematology/Oncology at [address] [phone] Erica Yi APRN [address] [place] [address] DR MEDICAL ONCOLOGY [place], [place] [phone] 09/18/2024 11:00 AM EST Infusion Hematology Oncology at [address] [phone] 10/01/2024 3:45 PM EST Office Visit Functional Yarsani Program at [facility] [address] [place] [address] Gene Julien Jr., PT 12/23/2024 8:00 AM EST Appointment XRay at [address] [place] [phone] River Ochoa MD [address] [place], [place] [address] 01/21/2025 1:00 PM EDT Office Visit Radiation Oncology at [address] [phone] Tory Salazar PA [facility] DR HEMATOLOGY AND ONCOLOGY [place] [phone] documented as of this encounter Procedures Procedure Name Priority Date/Time Associated Diagnosis Comments SURGICAL PATHOLOGY REPORT Routine 09/18/2023 1:35 PM EST documented in this encounter Results * Surgical Pathology Report (09/18/2023 1:35 PM EST) Final Diagnosis [id number] ? Location: [facility] The signing pathologist has (i) examined the relevant preparation(s) for the specimen(s) and (ii) rendered or confirmed the diagnosis(es). . ? Addendum ADDENDUM DISCUSSION SPECIAL TEST PERFORMED: Test: ??Oncotype DX [facility] Case: ??[id number], block A6 Performing Lab: ??Rad Performing Lab Case: ??[id number] Reported by: ??Atilio Osorio MD Date reported: ??11/26/2023 For the full text of the Rad report please refer to the Chart Review Media tab in the electronic health record (eDH). Electronically signed by: ?Monica Schmitz DO Verified: ??12/14/2023 12:41 ??Pathologist Performed at: ??-[facility] Dept. 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 - [...] with cautery artifact. G - Right Axillary [place] Lymph Node - - One benign node, (0/1). Note - The cauterized glands can not be further interpreted. Step sections were examined (F). Electronically signed by: ?Monica Schmitz DO Verified: ??09/28/2023 18:27 ??Pathologist Performed at: ??-[facility] Dept. of Pathology, [place] [address] Rn Psych: Quique Thompson MD, AP, ??CLIA Certificate: [id number] . SYNOPTIC Specimen ? Procedure: ??Excision (less than total mastectomy) ? Specimen Laterality: ??Right Tumor ? Histologic Type: ??Invasive ductal carcinoma ? Histologic Grade (Boston Histologic Score): ?Glandular (Acinar) / Tubular Differentiation: ??Score 3 ?Nuclear Pleomorphism: ??Score 2 ?Mitotic Rate: ??Score 1 ?Overall Grade: ??Grade 2 (scores of 6 or 7) ? Tumor Size: ??13 Millimeters (mm) ? Tumor Focality: ??Single focus of invasive carcinoma ? Ductal Carcinoma In Situ (DCIS): ??Present - Negative for extensive ?intraductal component (EIC) ?Architectural Patterns: ??Cribriform ?Nuclear Grade: ??Grade II (intermediate) ?Necrosis: ??Present, focal (small foci or single cell necrosis) ? Lymphatic and / or Vascular Invasion: ??Not identified ? Treatment Effect in the Breast: ??No known presurgical therapy Margins ? Margin Status for Invasive Carcinoma: ??Invasive carcinoma present at margin ?Margin(s) Involved by Invasive Carcinoma: ??Anterior - broad front ?Distance to Other Close Margins: ??>10 mm to all other margins with ? additional margin excisions ? Margin Status for DCIS: ??All margins negative for DCIS ?Distance from DCIS to Closest Margin: ??4 mm ?Closest Margin(s) to DCIS: ??Anterior ?Distance from DCIS to Other Margin(s): ??> 10 mm to all other margins Regional Lymph Nodes ? Regional Lymph Node Status: ??All regional lymph nodes negative for tumor ? Total Number of Lymph Nodes Examined (sentinel and non-sentinel): ??1 ? Number of [place] Nodes Examined: ??1 pTNM Classification (AJCC 8th Edition) ? pT Category: ??pT1c ? pN Category: ??pN0 ? N Suffix: ??(sn) Best Tumor Blocks for Future Studies ? Tumor Block(s): ??A6-7 ? Normal Block(s): ??A2 ? CAP [facility] 2022 Q3 Release SPECIMEN(S) SUBMITTED A - Right Partial Mastectomy B - Deep Margin, excision C - Medial Margin, excision D - Superior Margin, excision E - Lateral Margin, excision F - Inferior Margin, excision G - Right Axillary [place] Lymph Node Referring Identifier: ?(not provided) CARBON COPY: Kay Caldwell CLINICAL INFORMATION Right breast cancer SPECIMEN PROCESSING A - Labeled/Fixative: Right partial mastectomy, formalin. Quantity/Size/Devonte ght: Single, 3.9 x 3.2 x 1.4 cm ,6 g. . SPECIMEN PROCESSING SPECIMEN DESCRIPTION Resection Specimen: Incised, partial mastectomy. Specimen radiograph: Not provided. Orientation: Long suture = lateral-9:00. ??Short suture = superior-12:00 Specimen Description: According to the established protocol the ink designations are red (medial), yellow (lateral), orange (superior), green (inferior), black (posterior) and blue (anterior). Tissue Sections: The specimen is serially sectioned perpendicular to the long axis from lateral-yellow to medial-red into XI slices, each averaging 0.35 cm in thickness. LESION ??Description: 1.3 x 1.2 x 0.9 cm, white, firm, mass, with circumscribed borders. ??Location: Slices V-VIII. ??Nearest Margin(s): Abuts, inferior-green, posterior-black, anterior-blue. ??Other Margin(s): 1.2 cm, superior-orange. ??Other Margin(s): 1.5 cm, medial-red, lateral-yellow. Parenchyma: The remaining parenchyma is predominantly fatty with scant fibrous tissue. Sections/Processi ng: Entirely submitted in 11 cassettes as follows: ?A1: ??Slice I, lateral margin ?A2: ??Slice II ?A3: ??Slice III ?A4: ??Slice IV ?A5: ??Slice V (fragmented due to incision) ?A6: ??Slice (fragmented due to incision) ?A7: ??Slice VII ?A8: ??Slice VIII ?A9: ??Slice IX ?A10: ??Slice X ?A11: ??Slice XI, medial margin Ischemic time: 39 minutes B - Labeled/Fixative: Deep margin, formalin. Quantity/Size: Single, 4.0 x 2.5 x 1.7 cm. Tissue Description: Unoriented, uninked portion of predominantly fatty breast parenchyma. Sections/Processi ng: Serially sectioned and entirely submitted in 8 cassettes labeled B1-B8. C - Labeled/Fixative: Medial margin, formalin. Quantity/Size: Single, 2.6 x 1.2 x 1.0 cm. Tissue Description: Uninked, unoriented portion of predominantly fatty breast parenchyma. Sections/Processi ng: Serially sectioned and entirely submitted in 3 cassettes labeled C1-C3. D - Labeled/Fixative: Superior margin, formalin. Quantity/Size: Single, 3.2 x 1.0 x 0.8 cm. Tissue Description: Uninked, unoriented portion of predominantly fatty breast parenchyma. Sections/Processi ng: Serially sectioned and entirely submitted in 4 cassettes labeled D1-D4. E - Labeled/Fixative: Lateral margin, formalin. Quantity/Size: Two, 1.0 x 0.8 x 0.4 cm and 2.3 x 2.0 x 1.3 cm. Tissue Description: Uninked, unoriented portion of predominantly fatty breast parenchyma. Sections/Processi ng: Serially sectioned and entirely submitted in 3 cassettes labeled E1-E3. F - Labeled/Fixative: Inferior margin, formalin. Quantity/Size: Two, 1.5 x 1.2 x 0.6 cm and 2.0 x 1.7 x 1.1 cm. . SPECIMEN PROCESSING Tissue Description: Uninked, unoriented portion of predominantly fatty breast parenchyma select portion fragments. Sections/Processi ng: Serially sectioned and entirely submitted in 4 cassettes labeled F1-F4. G - Labeled/Fixative: Right axillary sentinel lymph node, formalin. Quantity/Size: Multiple, 5.5 x 5.0 x 2.5 cm. Tissue Description: Adipose tissue within which a 2.1 cm dc-pink lymph node is identified. Sections/Processi ng: The lymph node is entirely submitted. Envelope Addresser sections in 3 cassettes as follows: ?G1-G3: ??1 node, serially sectioned ??sns 12/14/2023 12:41 PM EST [facility] SENTINEL LYMPH NODE / Unknown 09/18/2023 1:35 PM EST 09/18/2023 1:35 PM EST BREAST STRUCTURE / Unknown 09/18/2023 1:35 PM EST 09/18/2023 1:35 PM EST BREAST STRUCTURE / Unknown 09/18/2023 1:35 PM EST 09/18/2023 1:35 PM EST BREAST STRUCTURE / Unknown 09/18/2023 1:35 PM EST 09/18/2023 1:35 PM EST BREAST STRUCTURE / Unknown 09/18/2023 1:35 PM EST 09/18/2023 1:35 PM EST BREAST STRUCTURE / Unknown 09/18/2023 1:35 PM EST 09/18/2023 1:35 PM EST SENTINEL LYMPH NODE / Unknown 09/18/2023 1:35 PM EST 09/18/2023 1:35 PM EST Dmitri Schultz MD PATHOLOGY/CYTO LOGY ORDERABLES [facility] [place] [address] [place] [address] documented in this encounter Visit Diagnoses Not on filedocumented in this encounter Care Teams Entry Level Chemist Relationship Specialty Start Date End Date Kay Caldwell MD [address] [place] [address] [place] [address] PCP - General Family Medicine 08/15/22 documented as of this encounter
--- OUTSIDE RECORDS SUMMARY | 2024-09-18 01:19 | XMS_ITS | Encounter Summary ---
Author Organization [facility] [address] Care Team Providers Care Bricklayer Paving Brick Name Role Phone Kay Caldwell MD Primary Care Provider [phone] Encounter Details Date Type Department Care Team (Latest Contact Info) Description 04/26/2023 Travel Social History Tobacco Use Types Packs/Day [...] AM EST Office Visit Hematology/Oncology at [address] [phone] Erica Yi APRN [address] [place] [address] DR MEDICAL ONCOLOGY [place], [place] [address] 09/18/2024 11:00 AM EST Infusion Hematology Oncology at [address] [phone] 10/01/2024 3:45 PM EST Office Visit Functional Buddhism Program at [facility] [address] [place] [address] Gene Julien Jr., PT 12/23/2024 8:00 AM EST Appointment XRay at [facility] [phone] River Ochoa MD [address] [place] [address] 01/21/2025 1:00 PM EDT Office Visit Radiation Oncology at [address] [phone] Tory Salazar PA [facility] DR [place] [address] documented as of this encounter Visit Diagnoses Not on filedocumented in this encounter Care Teams Bricklayer Paving Brick Relationship Specialty Start Date End Date Kay Caldwell MD [address] [place] [address] [address] [place] [address] PCP - General Family Medicine 08/15/22 documented as of this encounter
--- OUTSIDE RECORDS SUMMARY | 2024-09-18 01:19 | XMS_ITS | Encounter Summary ---
Author Organization [facility] [address] Care Team Providers Care Pigment Furnace Tender Name Role Phone Kay Caldwell MD Primary Care Provider [phone] Encounter Details Date Type Department Care Team (Latest Contact Info) Description 04/25/2023 Travel Social History Tobacco Use Types Packs/Day [...] AM EST Office Visit Hematology/Oncology at [address] [phone] Erica Yi APRN [address] [place] [address] DR MEDICAL ONCOLOGY [place], [place] [address] 09/18/2024 11:00 AM EST Infusion Hematology Oncology at [address] [phone] 10/01/2024 3:45 PM EST Office Visit Functional Faith Program at [facility] [address] [place] [address] Gene Julien Jr., PT 12/23/2024 8:00 AM EST Appointment XRay at [facility] [place] [phone] River Ochoa MD [address] [place] [address] 01/21/2025 1:00 PM EDT Office Visit Radiation Oncology at [address] [phone] Tory Salazar PA [facility] DR [place] [address] documented as of this encounter Visit Diagnoses Not on filedocumented in this encounter Care Teams Pigment Furnace Tender Relationship Specialty Start Date End Date Kay Caldwell MD [address] [place] [address] [address] [place] [address] PCP - General Family Medicine 08/15/22 documented as of this encounter
--- OUTSIDE RECORDS SUMMARY | 2024-09-18 01:19 | XMS_ITS | Encounter Summary ---
Author Organization [facility] [place] [address] Care Team Providers Care Deputy Director Of Public Works Name Role Phone Kay Caldwell MD Primary Care Provider [phone] Encounter Details Date Type Department Care Team (Latest Contact Info) Description 04/29/2023 Travel Social History Tobacco Use Types Packs/Day [...] AM EST Office Visit Hematology/Oncology at [address] [phone] Erica Yi APRN [address] [place] [address] DR MEDICAL ONCOLOGY [place], [place] [address] 09/18/2024 11:00 AM EST Infusion Hematology Oncology at [address] [phone] 10/01/2024 3:45 PM EST Office Visit Functional Congregation Program at [facility] [address] [place] [address] Gene Julien Jr., PT 12/23/2024 8:00 AM EST Appointment XRay at [facility] [place] [address] River Ochoa MD [address] [place] [address] 01/21/2025 1:00 PM EDT Office Visit Radiation Oncology at [address] [phone] Tory Salazar PA [facility] DR HEMATOLOGY [place] [address] documented as of this encounter Visit Diagnoses Not on filedocumented in this encounter Care Teams Deputy Director Of Public Works Relationship Specialty Start Date End Date Kay Caldwell MD [address] [place] [address] [address] [place] [address] PCP - General Family Medicine 08/15/22 documented as of this encounter
--- OUTSIDE RECORDS SUMMARY | 2024-09-18 01:19 | XMS_ITS | Encounter Summary ---
Author Organization [facility] [place] [address] Care Team Providers Care Social Worker School Name Role Phone Kay Caldwell MD Primary Care Provider [phone] Reason for Visit * Reason Comments Back Pain * Consultation (Routine) - Closed Specialty Diagnoses / Procedures Referred By Contac t Referred To [facility] Diagnoses Spondylosis of lumbar region without myelopathy or radiculopathy Procedures AR GROUP THERAPEUTIC PROCEDURES AR GROUP THERAPEUTIC PROCEDURES HC OCCUPATIONAL THERAPY EVALUATION MODERATE COMPLEXITY PRO ESTABLISHED PATIENT LEVEL 4 HC ESTABLISHED PATIENT LEVEL 4 PRO ESTABLISHED PATIENT LEVEL 3 HC ESTABLISHED PATIENT LEVEL 3 PRO FUNCTIONAL ADVENTISM PROGRAM LECTURE, GROUP HC THERAPEUTIC ACTIVITY EA 15 MIN HC PHYSICAL THERAPY RE-EVALUATION EST PLAN CARE HC PHYSICAL PERFORMANCE TEST W REPORT 15 MIN Jazmín Santiago APRN [facility] [place] [address] [facility] [address] [place] [address] Referral ID Status Reason Start Date Expiration Date Visits Requested Visits Authorized [id number] Closed Functional Restorative Program 03/25/2023 03/24/2024 52 52 Encounter Details Date Type Department Care Team (Late st Contact Info) Description 04/25/2023 11:00 AM EDT Office Visit Functional Mandaeism Program at [facility] [address] [place] [phone] Louise Oleary OTA Lumbar spondylosis Social History Tobacco Use Types Packs/Day Years Used Date Smoking Tobacco: Former Smokeless Tobacco: Never Sex and Gender Information Value Date Recorded Sex Assigned at Not on file Gender Identity Not on file Sexual Orientation Not on file documented as of this encounter Miscellaneous Notes * Treatment - Therapy - Louise Oleary OTA - 04/25/2023 11:00 AM EDT [facility] Occupational Therapy Note [facility] Day 9 Protocol Subjective: Ms. Garduno returns today for a scheduled follow up appointment with [facility]. She reports she has difficulty lying comfortably on the mat on her back. Objective: Refer to [facility] protocol for details and explanation of each activity. Ms. Garduno participated in the following activities: See individual flow sheets for weight progressions. Increased resistance levels of functional conditioning exercises according to personal recovery goals. Instructed in proper body mechanics for safe lifting. Monitored and instructed in proper form during functional conditioning exercises and provided cues for safety and efficiency. Group of 6 Functional Therapy: 1. AM Session of functional conditioning ( X ) Completed ( ) Not Completed Exercises reviewed are as follows: - Crate Carry for 5 Minutes or 1 Handed Bucket carry 10 minutes - Push/Pull - x10 reps - Weighted Cart Twist x20 reps - Wall Clock - x6 reps Functional Crate Lifting: - Floor to Waist (straight- leg lifting) = 2 x 10 reps - Waist to Shoulder = 2 x10 reps - Occasional Lift (Squat Lift) = 1x 5 reps 2. PM Session of functional conditioning ( X ) Completed ( ) Not Completed Exercises reviewed are as follows: - Crate Carry for 5 Minutes or 1 Handed Bucket carry 10 minutes - Push/Pull - x10 reps - Weighted Vacuum - x20 reps Functional Crate Lifting: - Floor to Waist (straight- leg lifting) = 2 x 10 reps - Waist to Shoulder = 2x10 reps - Occasional Lift (Squat Lift) = 1 x 5 reps Instructed in 20 minutes of mindfulness meditation activity focusing on how to practice with pain. Please see goals in initial OT evaluation report from Day 1. Daily functional conditioning progressis documented on a flow sheet which is available on request. Assessment: Ms. Garduno continues to work according to protocol in order to reach her functional goals. She had a good understanding of today's conditioning principles and participated actively in progression of function. They demonstrate good form with all functional conditioning activities. She continues to do well with incorporation of counteracting stretches and incorporation of pacing strategies throughout her gym routine. She actively participated with initiation of training components. They were supportive of the other members of the group throughout the session. Plan: Return for follow up with [facility] per protocol. Continue training according to planned progressions towards functional recovery goals. Length of Treatment: Ms. Garduno participated in program activities from 11:00 a.m. through 3:00 p.m. today as part of group intervention with individualized cues provided. Personal Function 3 Month Goals Vocational: None Identified Recreational: Be able to resume luis class and exercise routine; Be able to walk for longer periods of time. Daily Living: Be able to stand for longer periods to cook a meal, Be able to do housework includingvacuuming; Be able to garden; Be able to lift and carry heavier groceries, laundry basket. documented in this encounter Plan of Treatment Upcoming Encounters Date Type Department Care Team (Late st Contact Info) Description 09/18/2024 10:30 AM EST Office Visit Hematology/Oncology at [address] [phone] Erica Yi APRN [address] [place] [address] DR MEDICAL ONCOLOGY [place], [place] [address] 09/18/2024 11:00 AM EST Infusion Hematology Oncology at [address] [phone] 10/01/2024 3:45 PM EST Office Visit Functional Mandaeism Program at [address] [place] [phone] Gene Julien Jr., PT 12/23/2024 8:00 AM EST Appointment XRay at [address] [place] [phone] River Ochoa MD [address] [place] [address] 01/21/2025 1:00 PM EDT Office Visit Radiation Oncology at [address] [phone] Tory Salazar PA [facility] DR [place] [address] documented as of this encounter Visit Diagnoses Diagnosis Lumbar spondylosis Lumbosacral spondylosis without myelopathy documented in this encounter Care Teams Social Worker School Relationship Specialty Start Date End Date Kay Caldwell MD [address] [place] [address] [place] [address] PCP - General Family Medicine 08/15/22 documented as of this encounter
--- OUTSIDE RECORDS SUMMARY | 2024-09-18 01:19 | XMS_ITS | Encounter Summary ---
Author Organization Formerly [facility] [place] [address] Care Team Providers Care Pad Tufter Name Role Phone Kay Caldwell MD Primary Care Provider [phone] Reason for Visit * Consultation (Routine) - Closed Specialty Diagnoses / Procedures Referred By Contac t Referred To Contact [facility] Diagnoses Spondylosis of lumbar region without myelopathy or radiculopathy Procedures [place] GROUP THERAPEUTIC PROCEDURES [place] GROUP THERAPEUTIC PROCEDURES HC OCCUPATIONAL THERAPY EVALUATION MODERATE COMPLEXITY PRO ESTABLISHED PATIENT LEVEL 4 HC ESTABLISHED PATIENT LEVEL 4 PRO ESTABLISHED PATIENT LEVEL 3 HC ESTABLISHED PATIENT LEVEL 3 PRO FUNCTIONAL JAINISM PROGRAM LECTURE, GROUP HC THERAPEUTIC ACTIVITY EA 15 MIN HC PHYSICAL THERAPY RE-EVALUATION EST PLAN CARE HC PHYSICAL PERFORMANCE TEST W REPORT 15 MIN Jazmín Santiago, SWINE NUTRITIONIST [facility] [address] [facility] Frp [address] [place] [address] Referral ID Status Reason Start Date Expiration Date Visits Requested Visits Authorized [id number] Closed Functional Restorative Program 03/25/2023 03/24/2024 52 52 Encounter Details Date Type Department Care Team (Late st Contact Info) Description 05/07/2023 8:00 AM EDT Office Visit Functional Rastafarian Program at [facility] [address] [place] [address] Gene Julien Jr., PT Lumbar spondylosis; Lumbar foraminal stenosis; Radiculopathy of cervical region; Cluneal neuropathy; Radiculopathy of lumbar region; Spondylosis of lumbar region without myelopathy or radiculopathy Social History Tobacco Use Types Packs/Day Years Used Date Smoking Tobacco: Former Smokeless Tobacco: Never Sex and Gender Information Value Date Recorded Sex Assigned at Not on file Gender Identity Not on file Sexual Orientation Not on file documented as of this encounter Miscellaneous Notes * Treatment - Therapy - Gene Julien , PT - 05/07/2023 8:00 AM EDT [facility]P Physical Therapy Note [facility] Day 17 Protocol Subjective: Josselyn returns today for a scheduled follow up appointment with [facility]. Josselyn stated she is feeling good. Objectives and Treatment Received Exercises performed as a group of 6 with guidance and individualized cues for form. 30 Minutes Standing Step Exercises Toe Taps Heel Taps Step Up - R foot lead Step Up - L foot lead Side Step - R Side Step - L Step Up and Knee Lift - R Step Up and Knee Lift - L Step Up and Over Forward Bending Back Bending Chin Tuck Neck Extensions 30 Minutes Exercise Ball (2 x 15 each) Seated Spine Flexion/Extension Seated Alt Arm Raises Seated March Wall Push Ups Wall Squats Supine Lower Trunk Rotation Supine Crunches Press Ups Dumbbells - Bicep curls, shoulder raises to 90 degrees of flexion, straight leg deadlift, and pronereverse flies on plinth. 2x10 reps for each Weight Machines - Lat pull downs, single arm seated row, leg press, chest press, knee extensions, and back extensions. 2x10 reps for each Thomas chair back extensions 2 sets to tolerance Cardio performed today: 15 Mins on TM See [facility] flowsheet for details on time held and weights completed Patient participated in all exercises. Self-Care Program Type of Exercise Specific recommendations Frequency Mindfulness/ Relaxation 3 minute breathing & Progressive Muscle Relaxation (Insight Timer Salvador -Willian Mayo) Deep Breathing (In Through the Nose & Out Through the Mouth) Body Scan 2-3x/day Stretching Mat stretches (mp3 in myDH) 5-7x/wk MECHANICAL STRATEGIES: Back: Press Ups from floor/standing backbends against table & Cat/Cow Neck/Shoulder: Chin tucks, then head back and shake Shoulders/Upper Back: Back bend over chair/edge of bed All At least 2x/day Cardio/Aerobic/ Endurance (gives endorphine boost - natural pain reliever) Choose from: Walk w/ on Weekends Step routine (mp3 in myDH) Warm Up [place] (mp3 in myDH) Elliptical / TM / Bike at Gym 3-7x/wk For 20-30 min Strength training Gym Routine/Theraband Routine OR Mat Strengthening Routine OR Crate Lifting (1x/wk) 3-5x/wk Your Self-Care Flare-up Plan: Don't Panic, take [...] (exercise) that will cause lasting change. Assessment: Josselyn returns for follow up visit. She was able to progress weights appropriately, while successfully maintaining form. Cues were needed intermittently for maintenance of posture during exercise and avoid compensation. She actively participated as a member of the group throughout session. Met with Josselyn individually to outline a weekly schedule for self care exercise at home and in a gym setting. Discussed prescription for gym use x 3 months. Established top priority flexibility, strength, endurance exercises, and relaxation techniques to continue for mcfp gains. Established self-care Flare-up plan. Josselyn understands the importance of continuing the program to meet vocational, recreational, and daily living goals. Plan: Return for follow up with [facility] per protocol. Length of visit: Participated in warm-up and strengthening program from 8:00 a.m. through 11:00 a.m. today as part of group intervention with individualized cues provided. Louise Oleary PTA/CASSIE, present and assisting in supervision of session. Personal Function 3 Month Goals Vocational: None [...] 10:30 AM EST Office Visit Hematology/Oncology at [address] [phone] Erica Yi APRN [address] [place] [address] DR MEDICAL ONCOLOGY [place] [id number] 09/18/2024 11:00 AM EST Infusion Hematology Oncology at [address] [phone] 10/01/2024 3:45 PM EST Office Visit Functional Rastafarian Program at [address] [phone] Gene Julien Jr., PT 12/23/2024 8:00 AM EST Appointment XRay at [address] [place] [phone] River Ochoa MD [address] [place] [address] 01/21/2025 1:00 PM EDT Office Visit Radiation Oncology at [address] [phone] Tory Salazar PA [facility] [place] [address] documented as of this encounter Visit Diagnoses Diagnosis Lumbar spondylosis Lumbosacral spondylosis without myelopathy Lumbar foraminal stenosis Spinal stenosis, lumbar region, without neurogenic claudication Radiculopathy of cervical region Brachial neuritis or radiculitis nos Cluneal neuropathy Radiculopathy of lumbar region Thoracic or lumbosacral neuritis or radiculitis, unspecified Spondylosis of lumbar region without myelopathy or radiculopathy Lumbosacral spondylosis without myelopathy documented in this encounter Care Teams Pad Tufter Relationship Specialty Start Date End Date Kay Caldwell MD [address] [place] [address] [address] [place], [place] [address] PCP - General Family Medicine 08/15/22 documented as of this encounter
--- OUTSIDE RECORDS SUMMARY | 2024-09-18 01:19 | XMS_ITS | Encounter Summary ---
Author Organization Formerly [facility] [place] [address] Care Team Providers Care Occupational Therapy Director Name Role Phone Kay Caldwell MD Primary Care Provider [phone] Reason for Visit * Reason Comments Back Pain * Consultation (Routine) - Closed Specialty Diagnoses / Procedures Referred By Contac t Referred To Contact [facility] Diagnoses Spondylosis of lumbar region without myelopathy or radiculopathy Procedures [place] GROUP THERAPEUTIC PROCEDURES DC GROUP THERAPEUTIC PROCEDURES HC OCCUPATIONAL THERAPY EVALUATION MODERATE COMPLEXITY PRO ESTABLISHED PATIENT LEVEL 4 HC ESTABLISHED PATIENT LEVEL 4 PRO ESTABLISHED PATIENT LEVEL 3 HC ESTABLISHED PATIENT LEVEL 3 PRO FUNCTIONAL SCIENTOLOGIST PROGRAM LECTURE, GROUP HC THERAPEUTIC ACTIVITY EA 15 MIN HC PHYSICAL THERAPY RE-EVALUATION EST PLAN CARE HC PHYSICAL PERFORMANCE TEST W REPORT 15 MIN Jazmín Santiago, BRUNO [facility] [place] [address] [facility] Fr [address] [place] [address] Referral ID Status Reason Start Date Expiration Date Visits Requested Visits Authorized [id number] Closed Functional Restorative Program 03/25/2023 03/24/2024 52 52 Encounter Details Date Type Department Care Team (Late st Contact Info) Description 04/29/2023 11:00 AM EDT Office Visit Functional Mormonism Program at [facility] [address] [place] [address] Ariana Brock, OT Lumbar spondylosis Social History Tobacco Use Types Packs/Day Years Used Date Smoking Tobacco: Former Smokeless Tobacco: Never Sex and Gender Information Value Date Recorded Sex Assigned at Not on file Gender Identity Not on file Sexual Orientation Not on file documented as of this encounter Miscellaneous Notes * Treatment - Therapy - Ariana Brock, OT - 04/29/2023 11:00 AM EDT P Occupational Therapy Note [facility] Day 11 Protocol Subjective: Ms. Garduno returns today for a scheduled follow up appointment with [facility]. She reports feeling okay today, finds Saturday's have been her more challenging days. Objective: Refer to [facility] protocol for details and explanation of each activity. Ms. Garduno participated in the following activities: See individual flow sheets for weight progressions. Increased resistance levels of functional conditioning exercises according to personal recovery goals. Continued to monitor form with heavier lifting to ensure good body mechanics, safety and efficiency. Continued to monitor form with heavier lifting to ensure good body mechanics, safety and efficiency. Group of 6 Functional [...] reps - Weighted Vacuum - x20 reps - PEGS 3 minutes/ 0 Functional Crate Lifting: - Floor to Waist (straight- leg lifting) = 2 x 10 reps - Waist to Shoulder = 2x10 reps - Occasional Lift (Squat Lift) = 1 x 5 reps Instructed in 15 minutes of mindfulness meditation activity focusing on thoughts and emotions. Participated in a 40 minute outdoor walk including 1.1 miles, a slight hill climb and up/down one flightof stairs, and 10 minutes of unguarded beach ball volleyball activity. Please see goals in initial OT evaluation [...] demonstrate good form with all functional conditioning exercises as weights progress and she has done well with continued use of her stretches for pacing. She actively participated with initiation of training [...] AM EST Office Visit Hematology/Oncology at [address] [phone] Erica Yi APRN [address] [place] [address] [place] [address] 09/18/2024 11:00 AM EST Infusion Hematology Oncology at [address] [phone] 10/01/2024 3:45 PM EST Office Visit Functional Mormonism Program at [place] [address] [place], [place] [phone] Gnee Julien Jr., PT 12/23/2024 8:00 AM EST Appointment XRay at [address] [place] [phone] River Ochoa MD [address] [place] [address] 01/21/2025 1:00 PM EDT Office Visit Radiation Oncology at [address] [phone] Tory Salazar PA [facility] HEMATOLOGY [place] [address] documented as of this encounter Visit Diagnoses Diagnosis Lumbar spondylosis Lumbosacral spondylosis without myelopathy documented in this encounter Care Teams Occupational Therapy Director Relationship Specialty Start Date End Date Kay Caldwell MD [address] [place] [address] [address] [place], [place] [address] PCP - General Family Medicine 08/15/22 documented as of this encounter
--- OUTSIDE RECORDS SUMMARY | 2024-09-18 01:19 | XMS_ITS | Encounter Summary ---
Author Organization [facility] [place] [address] Care Team Providers Care Raw Products Director Name Role Phone Kay Caldwell MD Primary Care Provider [phone] Reason for Visit * Reason Comments Back Pain * Consultation (Routine) - Closed Specialty Diagnoses / Procedures Referred By Contac t Referred To Contact [facility] Diagnoses Spondylosis of lumbar region without myelopathy or radiculopathy Procedures [place] GROUP THERAPEUTIC PROCEDURES [place] GROUP THERAPEUTIC PROCEDURES HC OCCUPATIONAL THERAPY EVALUATION MODERATE COMPLEXITY PRO ESTABLISHED PATIENT LEVEL 4 HC ESTABLISHED PATIENT LEVEL 4 PRO ESTABLISHED PATIENT LEVEL 3 HC ESTABLISHED PATIENT LEVEL 3 PRO FUNCTIONAL SABIANIST PROGRAM LECTURE, GROUP HC THERAPEUTIC ACTIVITY EA 15 MIN HC PHYSICAL THERAPY RE-EVALUATION EST PLAN CARE HC PHYSICAL PERFORMANCE TEST W REPORT 15 MIN Jazmín Santiago, BRUNO [facility] [place] [address] [facility] Fr [address] [place] [address] Referral ID Status Reason Start Date Expiration Date Visits Requested Visits Authorized [id number] Closed Functional Restorative Program 03/25/2023 03/24/2024 52 52 Encounter Details Date Type Department Care Team (Late st Contact Info) Description 05/08/2023 11:00 AM EDT Office Visit Functional Pentecostal Program at [facility] [address] [place] [address] Ariana Brock, OT Lumbar spondylosis Social History Tobacco Use Types Packs/Day Years Used Date Smoking Tobacco: Former Smokeless Tobacco: Never Sex and Gender Information Value Date Recorded Sex Assigned at Not on file Gender Identity Not on file Sexual Orientation Not on file documented as of this encounter Miscellaneous Notes * Treatment - Therapy - Ariana Brock, OT - 05/08/2023 11:00 AM EDT FRP Occupational Therapy Note [facility] Day 18 Protocol Subjective: Ms. Garduno returns today for a scheduled follow up appointment with [facility]. She reports feeling okay today. Objective: Refer to [facility] protocol for details and explanation of [...] Cart Twist x20 reps - Wall Clock Functional Crate Lifting: - Floor to Waist (straight- leg lifting) = 2 x 10 reps - Waist to Shoulder = 2 x10 reps - Occasional Lift (Squat Lift) = 1x 5 reps 2. PM Session of mindfulness Instructed in 25 minutes of mindfulness meditation activity focusing on walk in the hamm. Participated in a 20 minute indoor treadmill walk, and 20 minutes of unguarded card game activity involving stooping and fast changing movements. Please see goals in initial OT evaluation [...] demonstrate good form with all functional conditioning exercises. Plan to retest physical capacities tomorrow. She actively participated with initiation of training components. They were supportive of the other members of the group throughout the session. Plan: Return for follow up with [facility] per protocol. Continue training according to planned progressions towards functional recovery goals. Length of Treatment: Ms. Garduno participated in program activities from 11:00 a.m. through 3:00 p.m. today as part of group intervention with individualized cues provided. Louise Oleary, EMERGENCY MANAGER/CASSIE, present and assisting in supervision of session. [...] AM EST Office Visit Hematology/Oncology at [address] [phone] Eric[address] Yi [address] MEDICAL ONCOLOGY [place], [place] [phone] 09/18/2024 11:00 AM EST Infusion Hematology Oncology at [address] [phone] 10/01/2024 3:45 PM EST Office Visit Functional Pentecostal Program at [address] [place] [address] Gene Julien Jr., PT 12/23/2024 8:00 AM EST Appointment XRay at [address] [place] [phone] River Ochoa MD [address] [place] [address] 01/21/2025 1:00 PM EDT Office Visit Radiation Oncology at [address] [phone] Tory Salazar PA [facility] [place] [address] documented as of this encounter Visit Diagnoses Diagnosis Lumbar spondylosis Lumbosacral spondylosis without myelopathy documented in this encounter Care Teams Raw Products Director Relationship Specialty Start Date End Date Kay Caldwell MD [address] [place] [address] [address] [place] [address] PCP - General Family Medicine 08/15/22 documented as of this encounter
--- OUTSIDE RECORDS SUMMARY | 2024-09-18 01:19 | XMS_ITS | Encounter Summary ---
Author Organization [facility] [place] [address] Care Team Providers Care Flat Hammerer Name Role Phone Kay Caldwell MD Primary Care Provider [phone] Encounter Details Date Type Department Care Team (Latest Contact Info) Description 05/16/2023 Travel Social History Tobacco Use Types Packs/Day [...] 10:30 AM EST Office Visit Hematology/Oncology at [address] [phone] Erica Yi APRN [address] [place] [address] DR MEDICAL ONCOLOGY [place], [place] [address] 09/18/2024 11:00 AM EST Infusion Hematology Oncology at [address] [phone] 10/01/2024 3:45 PM EST Office Visit Functional Buddhism Program at [facility] [address] [place] [address] Gene Julien Jr., PT 12/23/2024 8:00 AM EST Appointment XRay at [facility] [address] River Ochoa MD [address] [place] [address] 01/21/2025 1:00 PM EDT Office Visit Radiation Oncology at [address] [phone] Tory Salazar PA [facility] DR [place] [address] documented as of this encounter Visit Diagnoses Not on filedocumented in this encounter Care Teams Flat Hammerer Relationship Specialty Start Date End Date Kay Caldwell MD [address] [place] [address] [place] [address] PCP - General Family Medicine 08/15/22 documented as of this encounter
--- OUTSIDE RECORDS SUMMARY | 2024-09-18 01:19 | XMS_ITS | Encounter Summary ---
Author Organization [facility] [place] [address] Care Team Providers Care Video Tape Duplicator Name Role Phone Kay Caldwell MD Primary Care Provider [phone] Reason for Visit * Consultation (Routine) - Closed Specialty Diagnoses / Procedures Referred By Contac t Referred To Contact [facility] Diagnoses Spondylosis of lumbar region without myelopathy or radiculopathy Procedures [place] GROUP THERAPEUTIC PROCEDURES [place] GROUP THERAPEUTIC PROCEDURES HC OCCUPATIONAL THERAPY EVALUATION MODERATE COMPLEXITY PRO ESTABLISHED PATIENT LEVEL 4 HC ESTABLISHED PATIENT LEVEL 4 PRO ESTABLISHED PATIENT LEVEL 3 HC ESTABLISHED PATIENT LEVEL 3 PRO FUNCTIONAL TAOISM PROGRAM LECTURE, GROUP HC THERAPEUTIC ACTIVITY EA 15 MIN HC PHYSICAL THERAPY RE-EVALUATION EST PLAN CARE HC PHYSICAL PERFORMANCE TEST W REPORT 15 MIN Jazmín Santiago, TUBE DRAW HELPER [facility] [place] [address] [facility] [address] [place] [address] Referral ID Status Reason Start Date Expiration Date Visits Requested Visits Authorized [id number] Closed Functional Restorative Program 03/25/2023 03/24/2024 52 52 Encounter Details Date Type Department Care Team (Late st Contact Info) Description 04/29/2023 8:00 AM EDT Office Visit Functional Yazidism Program at [facility] [address] [place] [address] Gene Julien Jr., PT Lumbar spondylosis; Radiculopathy of cervical region; Radiculopathy of lumbar region; Lumbar foraminal stenosis; Cluneal neuropathy; Spondylosis of lumbar region without myelopathy or radiculopathy Social History Tobacco Use Types Packs/Day Years Used Date Smoking Tobacco: Former Smokeless Tobacco: Never Sex and Gender Information Value Date Recorded Sex Assigned at Not on file Gender Identity Not on file Sexual Orientation Not on file documented as of this encounter Miscellaneous Notes * Treatment - Therapy - Gene Julien , PT - 04/29/2023 8:00 AM EDT [facility] Physical Therapy Note P Day 11 Protocol Subjective: Josselyn returns today for a scheduled follow up appointment with [facility]. She reports feeling very sore & stiff. Objectives and Treatment Received Exercises performed as a group of 6 with guidance and individualized cues for form. 30 Minutes Standing Warm Up Exercises High March Heel-kick March Squat Step Back Toe Touch Knees to Hands B Forward Lunges Side Lunges Forward Bending and Backward Bending Chin Tucks 30 Minutes Supine, Sidelying, Prone Mat Exercises (2 x 20 each) Lower trunk rotation Straight Leg Raises Curl Up/Crunch Bridge Lower Abdominal Foot Taps B Sidelying Hip Abduction Prone Scap Retraction Prone Hip Extension Press Ups Dumbbells - Bicep curls, shoulder raises to 90 degrees of flexion, straight leg deadlift, and pronereverse flies on plinth. 2x10 reps for each Weight Machines - Lat pull downs, single arm seated row, leg press, chest press, knee extensions, and back extensions. 2x10 reps for each Thomas chair back extensions 2 sets to tolerance Cardio performed today: TM x 10 min x L3-[address] [facility] flowsheet for details on time held and weights completed Patient participated in all exercises without verbal complaint Assessment: Josselyn returns for follow up visit. She was able to progress weights with increasing independence and maintained form with intermittent cues to avoid compensation. She actively participated as a member of the group throughout session. Plan: Return for follow up with [facility] per protocol. Length of visit: Participated in warm-up and strengthening program from 8:00 a.m. through 10:00 a.m. today as part of group intervention [...] AM EST Office Visit Hematology/Oncology at [address] [phone] Erica Yi [address] MEDICAL ONCOLOGY [place], [place] [phone] 09/18/2024 11:00 AM EST Infusion Hematology Oncology at [address] [phone] 10/01/2024 3:45 PM EST Office Visit Functional Yazidism Program at [address] [place] [address] Gene Julien Jr., PT 12/23/2024 8:00 AM EST Appointment XRay at [address] [place] [phone] River Ochoa MD [address] [place] [address] 01/21/2025 1:00 PM EDT Office Visit Radiation Oncology at [address] [phone] Tory Salazar PA 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
--- OUTSIDE RECORDS SUMMARY | 2024-09-18 01:19 | XMS_ITS | Encounter Summary ---
Author Organization Formerly [facility] [place] [address] Care Team Providers Care Collective Bargaining Specialist Name Role Phone Kay Caldwlel MD Primary Care Provider [phone] Reason for Visit * Consultation (Routine) - Closed Specialty Diagnoses / Procedures Referred By Contac t Referred To [facility] Diagnoses Spondylosis of lumbar region without myelopathy or radiculopathy Procedures ID GROUP THERAPEUTIC PROCEDURES ID GROUP THERAPEUTIC PROCEDURES HC OCCUPATIONAL THERAPY EVALUATION MODERATE COMPLEXITY PRO ESTABLISHED PATIENT LEVEL 4 HC ESTABLISHED PATIENT LEVEL 4 PRO ESTABLISHED PATIENT LEVEL 3 HC ESTABLISHED PATIENT LEVEL 3 PRO FUNCTIONAL LATTER DAY PROGRAM LECTURE, GROUP HC THERAPEUTIC ACTIVITY EA 15 MIN HC PHYSICAL THERAPY RE-EVALUATION EST PLAN CARE HC PHYSICAL PERFORMANCE TEST W REPORT 15 MIN Jazmín Santiago, SCRUBBER OPERATOR [facility] [place] [address] [facility] [address] [place] [address] Referral ID Status Reason Start Date Expiration Date Visits Requested Visits Authorized [id number] Closed Functional Restorative Program 03/25/2023 03/24/2024 52 52 Encounter Details Date Type Department Care Team (Late st Contact Info) Description 05/03/2023 8:00 AM EDT Office Visit Functional Holiness Program at [facility] [address] [place] [address] Gene Julien Jr., PT Lumbar [...] * Treatment - Therapy - Gene Julien JrDerrell, PT - 05/03/2023 8:00 AM EDT FRP Physical Therapy Note [facility] Day 15 Protocol Subjective: Josselyn returns today for a scheduled follow up appointment with [facility]. Josselyn stated she is feeling good and is very excited that she is getting Stronger. Objectives and Treatment Received Exercises performed as [...] tolerance Cardio performed today: 15 Mins on Bike See [facility] flowsheet for details on time held and weights completed Patient participated in all exercises. Assessment: Josselyn returns for follow up visit. She was able to progress weights appropriately, while successfully maintaining form. Cues were needed intermittently for maintenance of posture during exercise and avoid compensation. She actively participated as a member of the group throughout session. Plan: Return for follow up with [facility] per protocol. Length of visit: Participated in [...] 10:30 AM EST Office Visit Hematology/Oncology at [address] [phone] Erica Yi APRN [address] [place] [address] DR MEDICAL ONCOLOGY [place], [place] [address] 09/18/2024 11:00 AM EST Infusion Hematology Oncology at [address] [phone] 10/01/2024 3:45 PM EST Office Visit Functional Holiness Program at [address] [place] [address] Gene Julien Jr., PT 12/23/2024 8:00 AM EST Appointment XRay at [address] [place] [phone] River Ochoa MD [address] [place] [address] 01/21/2025 1:00 PM EDT Office Visit Radiation Oncology at [address] [phone] Tory Salazar PA [facility] DR HEMATOLOGY [place] [address] documented as of this encounter Visit Diagnoses [...] myelopathy documented in this encounter Care Teams Collective Bargaining Specialist Relationship Specialty Start Date End Date Kay Caldwell MD [address] [place] [address] [address] [place], [place] [address] PCP - General Family Medicine 08/15/22 documented as of this encounter
--- OUTSIDE RECORDS SUMMARY | 2024-09-18 01:19 | XMS_ITS | Encounter Summary ---
Author Organization [facility] [place] [address] Care Team Providers Care Network Admin Name Role Phone Kay Caldwell MD Primary Care Provider [phone] Encounter Details Date Type Department Care Team (Latest Contact Info) Description 05/07/2023 Travel Social History Tobacco Use Types Packs/Day [...] 10:30 AM EST Office Visit Hematology/Oncology at [address] [phone] Erica Yi APRN [address] [place] [address] DR MEDICAL ONCOLOGY [place], [place] [address] 09/18/2024 11:00 AM EST Infusion Hematology Oncology at [address] [phone] 10/01/2024 3:45 PM EST Office Visit Functional Mormon Program at [facility] [address] [place] [address] Gene Julien Jr., PT 12/23/2024 8:00 AM EST Appointment XRay at [facility] [place] [address] River Ochoa MD [address] [place] [address] 01/21/2025 1:00 PM EDT Office Visit Radiation Oncology at [address] [phone] Tory Salazar PA [facility] DR [place] [address] documented as of this encounter Visit Diagnoses Not on filedocumented in this encounter Care Teams Network Admin Relationship Specialty Start Date End Date Kay Caldwell MD [address] [place] [address] [place] [address] PCP - General Family Medicine 08/15/22 documented as of this encounter
--- OUTSIDE RECORDS SUMMARY | 2024-09-18 01:19 | XMS_ITS | Encounter Summary ---
Author Organization Formerly [facility] [place] [address] Care Team Providers Care Geophysical Prospecting Surveyor Name Role Phone Kay Caldwell MD Primary Care Provider [phone] Reason for Visit * Consultation (Routine) - Closed Specialty Diagnoses / Procedures Referred By Contac t Referred To Contact [facility] Diagnoses Spondylosis of lumbar region without myelopathy or radiculopathy Procedures DE GROUP THERAPEUTIC PROCEDURES DE GROUP THERAPEUTIC PROCEDURES HC OCCUPATIONAL THERAPY EVALUATION MODERATE COMPLEXITY PRO ESTABLISHED PATIENT LEVEL 4 HC ESTABLISHED PATIENT LEVEL 4 PRO ESTABLISHED PATIENT LEVEL 3 HC ESTABLISHED PATIENT LEVEL 3 PRO FUNCTIONAL RESTORATIONISM PROGRAM LECTURE, GROUP HC THERAPEUTIC ACTIVITY EA 15 MIN HC PHYSICAL THERAPY RE-EVALUATION EST PLAN CARE HC PHYSICAL PERFORMANCE TEST W REPORT 15 MIN Jazmín Santiago, VEGETABLE PACKER [facility] [place] [address] [facility] [address] [place] [address] Referral ID Status Reason Start Date Expiration Date Visits Requested Visits Authorized [id number] Closed Functional Restorative Program 03/25/2023 03/24/2024 52 52 Encounter Details Date Type Department Care Team (Late st Contact Info) Description 05/10/2023 8:00 AM EDT Office Visit Functional Hinduism Program at [facility] [address] [place] [address] Gene Julien Jr., PT Lumbar spondylosis; Radiculopathy of lumbar region; Cluneal neuropathy; Radiculopathy of cervical region; Lumbar foraminal stenosis; Spondylosis of lumbar region without myelopathy or radiculopathy Social History Tobacco Use Types Packs/Day Years Used Date Smoking Tobacco: Former Smokeless Tobacco: Never Sex and Gender Information Value Date Recorded Sex Assigned at Not on file Gender Identity Not on file Sexual Orientation Not on file documented as of this encounter Miscellaneous Notes * Discharge - Therapy - Gene Julien Jr., PT - 05/10/2023 8:00 AM EDT FRP Physical Therapy Note [facility] Final Day 20 Protocol Subjective: Josselyn returns today for a scheduled graduation day. Objective: Group warm-up 8-830am Assessment: Josselyn is able to monitor and progress her own home program at this point and is looking forward to continuing her workouts. Plan: Return for home program follow-up in 1 week and then one month follow-up testing per [facility] protocol. Josselyn was encouraged to call with any questions regarding her home exercise program. documented in this encounter Plan of Treatment Upcoming Encounters Date Type Department Care Team (Late st Contact Info) Description 09/18/2024 10:30 AM EST Office Visit Hematology/Oncology at [address] [phone] Erica Yi APRN [address] [place] [address] MEDICAL ONCOLOGY [place], [place] [address] 09/18/2024 11:00 AM EST Infusion Hematology Oncology at [address] [phone] 10/01/2024 3:45 PM EST Office Visit Functional Hinduism Program at [facility] [address] [place] [address] Gene Julien Jr., PT 12/23/2024 8:00 AM EST Appointment XRay at [address] [place] [phone] River Ochoa MD [address] [place] [address] 01/21/2025 1:00 PM EDT Office Visit Radiation Oncology at [address] [phone] Tory Salazar PA [facility] DR [place] [address] documented as of this encounter Visit Diagnoses Diagnosis Lumbar spondylosis Lumbosacral spondylosis without myelopathy Radiculopathy of lumbar region Thoracic or lumbosacral neuritis or radiculitis, unspecified Cluneal neuropathy Radiculopathy of cervical region Brachial neuritis or radiculitis nos Lumbar foraminal stenosis Spinal stenosis, lumbar region, without 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
--- OUTSIDE RECORDS SUMMARY | 2024-09-18 01:19 | XMS_ITS | Encounter Summary ---
Author Organization Formerly [facility] [place] [address] Care Team Providers Care Forging Machine Operator Name Role Phone Kay Caldwell MD Primary Care Provider [phone] Reason for Visit * Reason Comments Back Pain * Consultation (Routine) - Closed Specialty Diagnoses / Procedures Referred By Contac t Referred To [facility] Diagnoses Spondylosis of lumbar region without myelopathy or radiculopathy Procedures ND GROUP THERAPEUTIC PROCEDURES ND GROUP THERAPEUTIC PROCEDURES HC OCCUPATIONAL THERAPY EVALUATION MODERATE COMPLEXITY PRO ESTABLISHED PATIENT LEVEL 4 HC ESTABLISHED PATIENT LEVEL 4 PRO ESTABLISHED PATIENT LEVEL 3 HC ESTABLISHED PATIENT LEVEL 3 PRO FUNCTIONAL JAIN PROGRAM LECTURE, GROUP HC THERAPEUTIC ACTIVITY EA 15 MIN HC PHYSICAL THERAPY RE-EVALUATION EST PLAN CARE HC PHYSICAL PERFORMANCE TEST W REPORT 15 MIN Jazmín Santiago, BRUNO [facility] [place] [address] [facility] [address] [place] [address] Referral ID Status Reason Start Date Expiration Date Visits Requested Visits Authorized [id number] Closed Functional Restorative Program 03/25/2023 03/24/2024 52 52 Encounter Details Date Type Department Care Team (Late st Contact Info) Description 05/08/2023 8:00 AM EDT Office Visit Functional Religion Program at [facility] [address] [place] [address] Louise Oleary, ETHANOL MAINTENANCE MECHANIC Lumbar spondylosis Social History Tobacco Use Types Packs/Day Years Used Date Smoking Tobacco: Former Smokeless Tobacco: Never Sex and Gender Information Value Date Recorded Sex Assigned at Not on file Gender Identity Not on file Sexual Orientation Not on file documented as of this encounter Miscellaneous Notes * Treatment - Therapy - OlearyLouise, ETHANOL MAINTENANCE MECHANIC - 05/08/2023 8:00 AM EDT P Physical Therapy Note [facility] Day 18 Protocol Subjective: Josselyn returns today for a scheduled follow up appointment with [facility]. Josselyn reports no new concerns. Objectives and Treatment Received Exercises performed as [...] performed today: 15 Mins on Bike See [facility] flowsheet for details on time held and weights completed Patient participated in all exercises. Assessment: Josselyn returns for follow up visit. She was able to progress weights appropriately, while successfully maintaining form. She is gaining independence with her routine and only requires distant supervision. She actively participated as a member of the group throughout session. Plan: Return for follow up with [facility] per protocol. Length of visit: Participated in warm-up and strengthening program from 8:00 a.m. through 10:00 a.m. today as part of group intervention with individualized cues provided. Gene Julien Jr., DPT,present and assisting in supervision of session. Personal [...] AM EST Office Visit Hematology/Oncology at [address] [phone] Erica Yi APRN [address] [place] [address] DR MEDICAL ONCOLOGY [place], [place] [address] 09/18/2024 11:00 AM EST Infusion Hematology Oncology at [address] [phone] 10/01/2024 3:45 PM EST Office Visit Functional Religion Program at [address] [place] [address] Gene Julien Jr., PT 12/23/2024 8:00 AM EST Appointment XRay at [address] [place] [address] River Ochoa MD [address] [place], [place] [address] 01/21/2025 1:00 PM EDT Office Visit Radiation Oncology at [address] [phone] Tory Salazar PA [facility] DR [place] [address] documented as of this encounter Visit Diagnoses Diagnosis Lumbar spondylosis Lumbosacral spondylosis without myelopathy documented in this encounter Care Teams Forging Machine Operator Relationship Specialty Start Date End Date Kay Caldwell MD [address] [place] [address] [address] [place], [place] [address] PCP - General Family Medicine 08/15/22 documented as of this encounter
--- OUTSIDE RECORDS SUMMARY | 2024-09-18 01:19 | XMS_ITS | Encounter Summary ---
Author Organization [facility] [place] [address] Care Team Providers Care Service Shop Foreman Name Role Phone Kay Caldwell MD Primary Care Provider [phone] Encounter Details Date Type Department Care Team (Latest Contact Info) Description 05/06/2023 Travel Social History Tobacco Use Types Packs/Day [...] AM EST Office Visit Hematology/Oncology at [address] [phone] Erica Yi APRN [address] [place] [address] DR MEDICAL ONCOLOGY [place], [place] [address] 09/18/2024 11:00 AM EST Infusion Hematology Oncology at [address] [phone] 10/01/2024 3:45 PM EST Office Visit Functional Scientology Program at [facility] [address] [place] [address] Gene Julien Jr., PT 12/23/2024 8:00 AM EST Appointment XRay at [facility] [place] [address] River Ochoa MD [address] [place] [address] 01/21/2025 1:00 PM EDT Office Visit Radiation Oncology at [address] [phone] Tory Salazar PA [facility] DR [place] [address] documented as of this encounter Visit Diagnoses Not on filedocumented in this encounter Care Teams Service Shop Foreman Relationship Specialty Start Date End Date Kay Caldwell MD [address] [place] [address] [address] [place] [address] PCP - General Family Medicine 08/15/22 documented as of this encounter
--- OUTSIDE RECORDS SUMMARY | 2024-09-18 01:19 | XMS_ITS | Encounter Summary ---
Author Organization Formerly [facility] [place] [address] Care Team Providers Care Archives Director Name Role Phone Kay Caldwell MD Primary Care Provider [phone] Reason for Visit * Consultation (Routine) - [...] HC ESTABLISHED PATIENT LEVEL 3 PRO FUNCTIONAL TEMPLE PROGRAM LECTURE, GROUP HC THERAPEUTIC ACTIVITY EA 15 MIN HC PHYSICAL THERAPY RE-EVALUATION EST PLAN CARE HC PHYSICAL PERFORMANCE TEST W REPORT 15 MIN Jazmín Santiago APRN [facility] [place] [address] [facility] Fr [address] [place] [address] Referral ID Status Reason Start Date Expiration Date Visits Requested Visits Authorized [id number] Closed Functional Restorative Program 03/25/2023 03/24/2024 52 52 Encounter Details Date Type Department Care Team (Late st Contact Info) Description 04/26/2023 11:00 AM EDT Office Visit Functional Episcopal Program at [facility] [address] [place] [address] Jazmín Santiago APRN [facility] [place] [address] Lumbar spondylosis Social History Tobacco Use Types Packs/Day Years Used Date Smoking Tobacco: Former Smokeless Tobacco: Never Sex and Gender Information Value Date Recorded Sex Assigned at Not on file Gender Identity Not on file Sexual Orientation Not on file documented as of this encounter Progress Notes * Jazmín Santiago APRN - 04/26/2023 11:00 AM EDT Chief complaint requiring rehabilitation: back and right abdominal pain SUBJECTIVE: Josselyn is here for follow up regarding Problems identified in the day 1 visit. We identified the following barriers to obtaining Her functional goals: steady. Progress has been standing and she is working towards achieving her functional goals. She reported that she was determined to achieve her goals and function and had not really identified any barriers to her participation or to achieving her goals on day 1. She reports that her is very proud of her. He is very supportive. He reports that he had purchased a ring for her to map marked the milestone of getting achieving one of her goals. We did discuss the fine- line between helping and enabling because he often wants to do things for her and she has outlined some strategies to discuss this with him.. OBJECTIVE: Exam is deferred today. ASSESSMENT: On track to achieve her functional goals PLAN; Continued functional tenriism for chief complaint of back pain that radiates to the right abdomen 20 of this 25 minute counseling based visit was spent in face to face discussion regarding present and future plan of care. documented in this encounter Plan of Treatment Upcoming Encounters Date Type Department Care Team (Late st Contact Info) Description 09/18/2024 10:30 AM EST Office Visit Hematology/Oncology at [address] [phone] Erica Yi APRN [address] [place] [address] [place] [address] 09/18/2024 11:00 AM EST Infusion Hematology Oncology at [address] [phone] 10/01/2024 3:45 PM EST Office Visit Functional Episcopal Program at [facility] [address] [place] [address] Gene Julien Jr., PT 12/23/2024 8:00 AM EST Appointment XRay at [address] [place] [phone] River Ochoa MD [address] [place] [address] 01/21/2025 1:00 PM EDT Office Visit Radiation Oncology at [address] [phone] Tory Salazar PA [facility] DR HEMATOLOGY [place] [address] documented as of this encounter Visit Diagnoses Diagnosis Lumbar spondylosis Lumbosacral spondylosis without myelopathy documented in this encounter Care Teams Archives Director Relationship Specialty Start Date End Date Kay Caldwell MD [address] [place] [address] [address] [place], [place] [address] PCP - General Family Medicine 08/15/22 documented as of this encounter
--- OUTSIDE RECORDS SUMMARY | 2024-09-18 01:19 | XMS_ITS | Encounter Summary ---
Author Organization [facility] [place] [address] Care Team Providers Care Memorial Adviser Name Role Phone Kay Caldwell MD Primary Care Provider [phone] Reason for Visit * Reason Comments Back [...] HC ESTABLISHED PATIENT LEVEL 3 PRO FUNCTIONAL MOSQUE PROGRAM LECTURE, GROUP HC THERAPEUTIC ACTIVITY EA 15 MIN HC PHYSICAL THERAPY RE-EVALUATION EST PLAN CARE HC PHYSICAL PERFORMANCE TEST W REPORT 15 MIN Jazmín Santiago, BRUNO [facility] [place] [address] [facility] Fr [address] [place] [address] Referral ID Status Reason Start Date Expiration Date Visits Requested Visits Authorized [id number] Closed Functional Restorative Program 03/25/2023 03/24/2024 52 52 Encounter Details Date Type Department Care Team (Late st Contact Info) Description 05/09/2023 11:00 AM EDT Office Visit Functional Mormonism Program at [facility] [address] [place] [address] Ariana Brock, OT Lumbar spondylosis Social History Tobacco Use Types Packs/Day Years Used Date Smoking Tobacco: Former Smokeless Tobacco: Never Sex and Gender Information Value Date Recorded Sex Assigned at Not on file Gender Identity Not on file Sexual Orientation Not on file documented as of this encounter Progress Notes * Ariana Brock, OT - 05/09/2023 11:00 AM EDT FRP Occupational Therapy Note P Re-evaluation/Final Testing [facility] Day 19 Protocol Subjective: Ms. Garduno returns today for a scheduled follow up appointment with [facility]. She reports feeling . She reports this is the best thing she has ever done. Her has also noticed a difference in her ability to move more. She reports she is going to 3x week at the gym, and then crate lifting at home. Objective: Refer to [facility] protocol for details and explanation of each activity. Ms. Garduno participated in the following activities: AM Re-evaluation ( X ) Completed ( ) Not completed PM Unguarded activity, stretch ( X ) Completed ( ) Not completed PM Session of functional conditioning ( X ) Completed:blinded weight assessment activity ( ) Not Completed Re-evaluation assessed functional strength, work readiness, and status of goals. Discussed the concept of a work readiness date in preparation for discharge tomorrow. Outlined a specific home lifting program with Ms. Garduno for her to continue progressing her functional capacities after discharge. [place] Occupational Performance Measure Results - 3 Month Occupational Goals: Occupational Goals [facility] Day 1 P S Current Status: End of Program Current Status: 1-month Follow-up P S Work/Productive Activity: None Identified - - None Recreation/Leisure: Be able to resume Dolly class and exercise routine 1 1 Home set up is ready to go; going to try to resume Dolly class. Be able to walk for longer periods (at least 1-2 hours) 2 1 Has been doing some 20 minute walks, needs to incorporate pacing strategies. Be able to garden 4 5 Planning to do some gardening this weekend. Daily Living (ADL, IADL): Be able to stand to cook a meal, going up and down stairs more easily 3 2Doesn't feel this will be a problem, planning to utilize pacing strategies and change position; Michael working on stairs here in program, will be utilizing stairs as her home gym is in basement. Be able to do housework including vacuuming 1 1 Planning to do some vacuuming next week. Be able to bend over to reach items off ground, lower shelf 2 1 Finds there is a big improvement inflexibility, thinks this will be no problem. Be able to lift and carry heavier groceries, laundry basket 3 2 Carried in groceries last weekend and thinks carrying laundry will be no problem. Total 16 13 Total Mean score 2.28 1.85 Mean score Change from Day 1 (??2 point change is clinically significant) Lifting Goal: 45 lbs Current Lifting 50 lbs Current Lifting lbs *Velazco: P=Performance Score S=Satisfaction with Performance Score ASSESSMENT of OCCUPATIONAL PERFORMANCE Physical Capacity Test Results: Lifting: (pounds/heart rate) First Day of FRP End of Program 1 Month Follow-Up 3 Month Follow-Up Repetitive Floor to Waist 50/120 Repetitive Waist to Shoulder 20/105 1-Time Maximum 25 55 2-Handed Carry - 50 ft 20 45 Work Demand Level Light Medium The results of this testing must be integrated with clinical findings and other observations to derive a final assessment of work capacity. Vocational Planning: Job to return to: No , retired Plan to start work at the end of the program: No , see above Assessment: Ms. Garduno continues to work according to protocol in order to reach her functional goals. She has made substantial progress towards her 3 month functional recovery goals and has surpassed her lifting goal of 45 lbs. She went from a Light physical demand level to a Medium physical demand level. Her self confidence in her abilities to approach more challenging situations with liftinghas improved drastically. Overall she has demonstrated an increase in her functional strength, flexibility and endurance which in turn will increase her engagement in her meaningful occupations and improve overall quality of life. Please see also short term OT goals in initial note. Plan: Return for follow up with [facility]P per protocol. Length of Treatment: Ms. Garduno participated in program activities from 8:00 a.m. through 3:00 p.m today. During that time, a total of 15 minutes was spent re-testing physical performance and a total of 15 minutes was spent implementing individualized occupational therapy strategies. Care was provided by both an Occupational Therapist and Learn To Swim Instructor, SALVADOR Franco documented in this encounter Plan of Treatment Upcoming Encounters Date Type Department Care Team (Late st Contact Info) Description 09/18/2024 10:30 AM EST Office Visit Hematology/Oncology at [address] [phone] Erica Yi APRN [address] [place] [address] DR MEDICAL ONCOLOGY [place], [place] [address] 09/18/2024 11:00 AM EST Infusion Hematology Oncology at [address] [phone] 10/01/2024 3:45 PM EST Office Visit Functional Mormonism Program at [address] [place] [address] Gene Julien Jr., PT 12/23/2024 8:00 AM EST Appointment XRay at [address] [place] [address] River Ochoa MD [address] [place] [address] 01/21/2025 1:00 PM EDT Office Visit Radiation Oncology at [address] [phone] Tory Salazar PA [facility] HEMATOLOGY [place] [address] documented as of this encounter Visit Diagnoses Diagnosis Lumbar spondylosis Lumbosacral spondylosis without myelopathy documented in this encounter Care Teams Memorial Adviser Relationship Specialty Start Date End Date Kay Caldwell MD [address] [place] [address] [address] [place] [address] PCP - General Family Medicine 08/15/22 documented as of this encounter
--- OUTSIDE RECORDS SUMMARY | 2024-09-18 01:19 | XMS_ITS | Encounter Summary ---
Author Organization [facility] [place] [address] Care Team Providers Care Top Lift Trimmer Name Role Phone Kay Caldwell MD Primary Care Provider [phone] Reason for Visit * Reason Comments Back [...] HC ESTABLISHED PATIENT LEVEL 3 PRO FUNCTIONAL EPISCOPAL PROGRAM LECTURE, GROUP HC THERAPEUTIC ACTIVITY EA 15 MIN HC PHYSICAL THERAPY RE-EVALUATION EST PLAN CARE HC PHYSICAL PERFORMANCE TEST W REPORT 15 MIN Jazmín Santiago, BRUNO [facility] [place] [address] [facility] Fr [address] [place] [address] Referral ID Status Reason Start Date Expiration Date Visits Requested Visits Authorized [id number] Closed Functional Restorative Program 03/25/2023 03/24/2024 52 52 Encounter Details Date Type Department Care Team (Late st Contact Info) Description 05/01/2023 11:00 AM EDT Office Visit Functional Gnosticist Program at [facility] [address] [place] [address] Ariana Brock, OT Lumbar spondylosis Social History Tobacco Use Types Packs/Day Years Used Date Smoking Tobacco: Former Smokeless Tobacco: Never Sex and Gender Information Value Date Recorded Sex Assigned at Not on file Gender Identity Not on file Sexual Orientation Not on file documented as of this encounter Miscellaneous Notes * Treatment - Therapy - Ariana Brock, OT - 05/01/2023 11:00 AM EDT FRP Occupational Therapy Note [facility] Day 13 Protocol Subjective: Ms. Garduno returns today for a scheduled follow up appointment with [facility]. She reports feeling okay today. Objective: Refer to [facility] protocol for details and explanation of [...] Twist x20 reps - Wall Clock - Functional Crate Lifting: - Floor to Waist [...] Weighted Vacuum - x20 reps - PEGS Functional Crate Lifting: - Floor to Waist (straight- leg lifting) = 2 x 10 reps - Waist to Shoulder = 2x10 reps - Occasional Lift (Squat Lift) = 1 x 5 reps Instructed in 26 minutes of mindfulness meditation activity focusing on walk in the [employer]. Participated in a 35 minute outdoor walk including 1.1 miles, up/down one flight of stairs and a hill climb,and 10 minutes of unguarded beach ball volleyball activity.. Pain Neuroscience Education: Your Amazing Protectometer Discussion around applying Pain Neuroscience Education (PNE) introduced at Pain 100, including the concepts of an over-sensitive alarm, the role of threat perception, and the biopsychosocial model of chronic pain to their own experience. Today's topic focused on the Explain Pain approach of evaluating the context of a person's pain that can contribute to experiencing pain or not (e.g., Danger in Me v. Safety in Me). Participants watched the beginning of an educational video with Trixie Brunson, PhD, Dsc (https://www.Ximalaya.com/watch?v=[email or web address]_Fs00nM) describing the brain's role in pain processing, and the ways that implicit mess ages of danger or safety determine the brain's decision whether to protect bodily tissues with pain. Participants were educated about the scientific basis of this understanding of pain. Please see goals in initial OT [...] demonstrate good form with all functional conditioning activities as weights progress. She actively participated with initiation of training [...] AM EST Office Visit Hematology/Oncology at [address] [phone] Erica Yi APRN [address] MEDICAL ONCOLOGY [place], [place] [address] 09/18/2024 11:00 AM EST Infusion Hematology Oncology at [address] [phone] 10/01/2024 3:45 PM EST Office Visit Functional Gnosticist Program at [facility] [address] [place] [address] Gene Julien Jr., PT 12/23/2024 8:00 AM EST Appointment XRay at [address] [place] [address] River Ochoa MD [address] [place], [place] [address] 01/21/2025 1:00 PM EDT Office Visit Radiation Oncology at [address] [phone] Tory Salazar PA [facility] DR HEMATOLOGY [place] [address] documented as of this encounter Visit Diagnoses Diagnosis Lumbar spondylosis Lumbosacral spondylosis without myelopathy documented in this encounter Care Teams Top Lift Trimmer Relationship Specialty Start Date End Date Kay Caldwell MD [address] [place] [address] [address] [place], [place] [address] PCP - General Family Medicine 08/15/22 documented as of this encounter
--- OUTSIDE RECORDS SUMMARY | 2024-09-18 01:19 | XMS_ITS | Encounter Summary ---
Author Organization [facility] [place] [address] Care Team Providers Care Mold Setter Name Role Phone Kay Caldwell MD Primary Care Provider [phone] Reason for Visit * Consultation (Routine) - Closed Specialty Diagnoses / Procedures Referred By Contac t Referred To [facility] Diagnoses Spondylosis of lumbar region without myelopathy or radiculopathy Procedures TX GROUP THERAPEUTIC PROCEDURES TX GROUP THERAPEUTIC PROCEDURES HC OCCUPATIONAL THERAPY EVALUATION MODERATE COMPLEXITY PRO ESTABLISHED PATIENT LEVEL 4 HC ESTABLISHED PATIENT LEVEL 4 PRO ESTABLISHED PATIENT LEVEL 3 HC ESTABLISHED PATIENT LEVEL 3 PRO FUNCTIONAL BUDDHISM PROGRAM LECTURE, GROUP HC THERAPEUTIC ACTIVITY EA 15 MIN HC PHYSICAL THERAPY RE-EVALUATION EST PLAN CARE HC PHYSICAL PERFORMANCE TEST W REPORT 15 MIN Jazmín Santiago APRN [facility] [place] [address] [facility] Fr [address] [place] [address] Referral ID Status Reason Start Date Expiration Date Visits Requested Visits Authorized [id number] Closed Functional Restorative Program 03/25/2023 03/24/2024 52 52 Encounter Details Date Type Department Care Team (Late st Contact Info) Description 05/02/2023 10:00 AM EDT Office Visit Functional Roman Catholic Program at [facility] [address] [place] [address] Jazmín Santiago APRN [facility] [place] [address] Lumbar spondylosis Social History Tobacco Use Types Packs/Day Years Used Date Smoking Tobacco: Former Smokeless Tobacco: Never Sex and Gender Information Value Date Recorded Sex Assigned at Not on file Gender Identity Not on file Sexual Orientation Not on file documented as of this encounter Progress Notes * Jazmín Santiago APRN - 05/02/2023 10:00 AM EDT [id number] Josselyn Garduno 05/02/2023 FUNCTIONAL BUDDHISM PROGRAM REHABILITATION TRAINING LECTURE Chief complaint requiring rehabilitation:back pain Presenter: Jazmín Santiago APRN Lifestyle and wellness discussion The purpose of this discussion is to identify modifiable and non modifiable factors that influencehealth and wellness. We will define wellness and health, discuss non modifiable risk factors of morbidity and mortality and modifiable factors. We will then discuss strategies for maximal management ofnon modifiable factors. Discussion will include diet and exercise recommendations, sleep and stressmanagement. All participants will be encouraged to participate and share helpful coping strategies. Time Spent: 1 hr. documented in this encounter Plan of Treatment Upcoming Encounters Date Type Department Care Team (Late st Contact Info) Description 09/18/2024 10:30 AM EST Office Visit Hematology/Oncology at [address] [phone] Erica Yi APRN [address] [place] [address] [place] [address] 09/18/2024 11:00 AM EST Infusion Hematology Oncology at [address] [phone] 10/01/2024 3:45 PM EST Office Visit Functional Roman Catholic Program at [facility] [address] [place] [address] Gene Julien Jr., PT 12/23/2024 8:00 AM EST Appointment XRay at [address] [place] [address] River Ochoa MD [address] [place] [address] 01/21/2025 1:00 PM EDT Office Visit Radiation Oncology at [address] [phone] Tory Salazar PA [facility] DR [place] [address] documented as of this encounter Visit Diagnoses Diagnosis Lumbar spondylosis Lumbosacral spondylosis without myelopathy documented in this encounter Care Teams Mold Setter Relationship Specialty Start Date End Date Kay Caldwell MD [address] [place] [address] [place] [address] PCP - General Family Medicine 08/15/22 documented as of this encounter
--- OUTSIDE RECORDS SUMMARY | 2024-09-18 01:19 | XMS_ITS | Encounter Summary ---
Author Organization [facility] [place] [address] Care Team Providers Care Pump Attendant Name Role Phone Kay Caldwell MD Primary Care Provider [phone] Encounter Details Date Type Department Care Team (Latest Contact Info) Description 05/03/2023 Travel Social History Tobacco Use Types Packs/Day [...] AM EST Office Visit Hematology/Oncology at [address] [phone] Erica Yi APRN [address] [place] [address] DR MEDICAL ONCOLOGY [place], [place] [address] 09/18/2024 11:00 AM EST Infusion Hematology Oncology at [address] [phone] 10/01/2024 3:45 PM EST Office Visit Functional Mosque Program at [facility] [address] [place] [address] Gene Julien Jr., PT 12/23/2024 8:00 AM EST Appointment XRay at [facility] [place] [address] River Ochoa MD [address] [place] [address] 01/21/2025 1:00 PM EDT Office Visit Radiation Oncology at [address] [phone] Tory Salazar PA [facility] DR HEMATOLOGY [place] [address] documented as of this encounter Visit Diagnoses Not on filedocumented in this encounter Care Teams Pump Attendant Relationship Specialty Start Date End Date Kay Caldwell MD [address] [place] [address] [place] [address] PCP - General Family Medicine 08/15/22 documented as of this encounter
--- OUTSIDE RECORDS SUMMARY | 2024-09-18 01:19 | XMS_ITS | Encounter Summary ---
Author Organization [facility] [place] [address] Care Team Providers Care Manager Market Research Name Role Phone Kay Caldwell MD Primary Care Provider [phone] Reason for Visit * Consultation (Routine) - [...] HC ESTABLISHED PATIENT LEVEL 3 PRO FUNCTIONAL ANGLICAN PROGRAM LECTURE, GROUP HC THERAPEUTIC ACTIVITY EA 15 MIN HC PHYSICAL THERAPY RE-EVALUATION EST PLAN CARE HC PHYSICAL PERFORMANCE TEST W REPORT 15 MIN Jazmín Santiago, PROJECT MANAGER SENIOR [facility] [address] [facility] Frp [address] [place] [address] Referral ID Status Reason Start Date Expiration Date Visits Requested Visits Authorized [id number] Closed Functional Restorative Program 03/25/2023 03/24/2024 52 52 Encounter Details Date Type Department Care Team (Late st Contact Info) Description 05/06/2023 8:00 AM EDT Office Visit Functional Presybeterian Program at [facility] [address] [place] [address] Louise Oleary, MODEL AND PATTERN SUPERVISOR Lumbar spondylosis Social History Tobacco Use Types Packs/Day Years Used Date Smoking Tobacco: Former Smokeless Tobacco: Never Sex and Gender Information Value Date Recorded Sex Assigned at Not on file Gender Identity Not on file Sexual Orientation Not on file documented as of this encounter Miscellaneous Notes * Treatment - Therapy - Louise Oleary, LYNDSEY - 05/06/2023 8:00 AM EDT P Physical Therapy Note [facility] Day 16 Protocol Subjective: Josselyn returns today for a scheduled follow up appointment with [facility]. Josselyn reports that this weekend she walked around town with her a lot and had a flare-up of back pain the next day. She still feels some discomfort in her back today but is confident that it will not last. Objectives and Treatment Received Exercises performed as [...] performed today: 15 Mins on Bike See [facility] flowsheet for details on time held and weights completed Patient participated in all exercises. Assessment: Josselyn returns for follow up visit. She was able to progress weights appropriately, while successfully maintaining form. She is gaining independence with her routine and only requires supervision. She actively participated as a member of the group throughout session. Plan: Return for follow up with [facility] per protocol. Length of visit: Participated in [...] AM EST Office Visit Hematology/Oncology at [address] [phone] Erica Yi APRN [address] [place] [address] DR MEDICAL ONCOLOGY [place], [place] [phone] 09/18/2024 11:00 AM EST Infusion Hematology Oncology at [address] [phone] 10/01/2024 3:45 PM EST Office Visit Functional Presybeterian Program at [address] [place] [address] Gene Julien Jr., PT 12/23/2024 8:00 AM EST Appointment XRay at [address] [place] [address] River Ochoa MD [address] [place], [place] [address] 01/21/2025 1:00 PM EDT Office Visit Radiation Oncology at [address] [phone] Tory Salazar PA [facility] [place] [address] documented as of this encounter Visit Diagnoses Diagnosis Lumbar spondylosis Lumbosacral spondylosis without myelopathy documented in this encounter Care Teams Manager Market Research Relationship Specialty Start Date End Date Kay Caldwell MD [address] [place] [address] [place] [address] PCP - General Family Medicine 08/15/22 documented as of this encounter
--- OUTSIDE RECORDS SUMMARY | 2024-09-18 01:19 | XMS_ITS | Encounter Summary ---
Author Organization [place] [place] [address] Care Team Providers Care Order Processing Specialist Name Role Phone Kay Caldwell MD Primary Care Provider [phone] Reason for Visit * Reason Comments Back Pain * Consultation (Routine) - Closed Specialty Diagnoses / Procedures Referred By Contac t Referred To [facility] Diagnoses Spondylosis of lumbar region without myelopathy or radiculopathy Procedures CO GROUP THERAPEUTIC PROCEDURES CO GROUP THERAPEUTIC PROCEDURES HC OCCUPATIONAL THERAPY EVALUATION MODERATE COMPLEXITY PRO ESTABLISHED PATIENT LEVEL 4 HC ESTABLISHED PATIENT LEVEL 4 PRO ESTABLISHED PATIENT LEVEL 3 HC ESTABLISHED PATIENT LEVEL 3 PRO FUNCTIONAL CONGREGATIONAL PROGRAM LECTURE, GROUP HC THERAPEUTIC ACTIVITY EA 15 MIN HC PHYSICAL THERAPY RE-EVALUATION EST PLAN CARE HC PHYSICAL PERFORMANCE TEST W REPORT 15 MIN Jazmín Santiago, BRUNO [facility] [place] [address] [facility] Fr [address] [place] [address] Referral ID Status Reason Start Date Expiration Date Visits Requested Visits Authorized [id number] Closed Functional Restorative Program 03/25/2023 03/24/2024 52 52 Encounter Details Date Type Department Care Team (Late st Contact Info) Description 04/24/2023 8:00 AM EDT Office Visit Functional Methodist Program at [facility] [address] [place] [address] Louise Oleary, CLINICAL TRIALS NURSE Lumbar spondylosis Social History Tobacco Use Types Packs/Day Years Used Date Smoking Tobacco: Former Smokeless Tobacco: Never Sex and Gender Information Value Date Recorded Sex Assigned at Not on file Gender Identity Not on file Sexual Orientation Not on file documented as of this encounter Miscellaneous Notes * Treatment - Therapy - Louise Oleary, CLINICAL TRIALS NURSE - 04/24/2023 8:00 AM EDT [facility] Physical Therapy Note P Day 8 Warm Up Exercises Protocol Subjective: Josselyn Garduno returns today for a scheduled follow up appointment with P; Josselyn reports having lower back discomfort and stiffness and fatigue. Objective: Treatment Received: Group of 6 30 Minutes Standing Warm Up Exercises High March Heel-kick March Squat Step Back Toe Touch Knees to Hands B Forward Lunges Side Lunges Forward Bending and Backward Bending Chin Tucks 30 Minutes Supine, Sidelying, Prone Mat Exercises (2 x 15 each) Lower trunk rotation Straight Leg Raises Curl Up/Crunch Bridge Lower Abdominal Foot Taps B Sidelying Hip Abduction Prone Scap Retraction Prone Hip Extension Press Ups Exercises below performed with guidance in establishing baseline weights for flowsheet Dumbbells - Bicep curls, shoulder raises to 90 degrees of flexion, straight leg deadlift, and pronereverse flies on plinth. 2x10 reps for each Weight Machines - Lat pull downs, single arm seated row, leg press, chest press, knee extensions, and back extensions. 2x10 reps for each Thomas chair back extensions 2 sets to tolerance Cardio performed on TM 15 Mins See [facility] flowsheet for details on time held and weights completed Patient participated in all exercises, with some challenges with positioning with low seats. Assessment: Josselyn Garduno returns for follow up visit. She was able to progress weights and maintained form with intermittent cues to avoid compensation. She is becoming familiar with the gym equipment and the recommended approach for choosing weight/resistance levels. She actively participatedas a member of the group throughout session. Plan: Return for follow up with [facility] per protocol. Personal Function 3 Month Goals Vocational: None Identified Recreational: Be able to resume luis class and exercise routine; Be able to walk for longer periods of time. Daily Living: Be able to stand for longer periods to cook a meal, Be able to do housework includingvacuuming; Be able to garden; Be able to lift and carry heavier groceries, laundry basket. Length of visit: Participated in warm-up and strengthening program from 8:00 a.m. through 11:00 a.m. today as part of group intervention with individualized cues provided documented in this encounter Plan of Treatment Upcoming Encounters Date Type Department Care Team (Late st Contact Info) Description 09/18/2024 10:30 AM EST Office Visit Hematology/Oncology at [address] [phone] Erica Yi, [address] MEDICAL ONCOLOGY [place], [place] [id number] 09/18/2024 11:00 AM EST Infusion Hematology Oncology at [address] [phone] 10/01/2024 3:45 PM EST Office Visit Functional Methodist Program at [address] [facility] [place] [address] Gene Julien Jr., PT 12/23/2024 8:00 AM EST Appointment XRay at [address] [place] [address] River Ochoa MD [address] [place] [address] 01/21/2025 1:00 PM EDT Office Visit Radiation Oncology at [address] [phone] Tory Salazar PA [facility] HEMATOLOGY [place] [address] documented as of this encounter Visit Diagnoses Diagnosis Lumbar spondylosis Lumbosacral spondylosis without myelopathy documented in this encounter Care Teams Order Processing Specialist Relationship Specialty Start Date End Date Kay Caldwell MD [address] [place] [address] [address] [place] [address] PCP - General Family Medicine 08/15/22 documented as of this encounter
--- OUTSIDE RECORDS SUMMARY | 2024-09-18 01:19 | XMS_ITS | Encounter Summary ---
Author Organization [facility] [place] [address] Care Team Providers Care Heater Operator Name Role Phone Kay Caldwell MD Primary Care Provider [phone] Reason for Visit * Reason Comments Back Pain * Consultation (Routine) - Closed Specialty Diagnoses / Procedures Referred By Contac t Referred To [facility] Diagnoses Spondylosis of lumbar region without myelopathy or radiculopathy Procedures [place] GROUP THERAPEUTIC PROCEDURES [place] GROUP THERAPEUTIC PROCEDURES HC OCCUPATIONAL THERAPY EVALUATION MODERATE COMPLEXITY PRO ESTABLISHED PATIENT LEVEL 4 HC ESTABLISHED PATIENT LEVEL 4 PRO ESTABLISHED PATIENT LEVEL 3 HC ESTABLISHED PATIENT LEVEL 3 PRO FUNCTIONAL YAZIDISM PROGRAM LECTURE, GROUP HC THERAPEUTIC ACTIVITY EA 15 MIN HC PHYSICAL THERAPY RE-EVALUATION EST PLAN CARE HC PHYSICAL PERFORMANCE TEST W REPORT 15 MIN Jazmín Santiago, BRUNO [facility] [address] [facility] Fr [address] [place] [address] Referral ID Status Reason Start Date Expiration Date Visits Requested Visits Authorized [id number] Closed Functional Restorative Program 03/25/2023 03/24/2024 52 52 Encounter Details Date Type Department Care Team (Late st Contact Info) Description 05/07/2023 11:00 AM EDT Office Visit Functional Presybeterian Program at [facility] [address] [place] [address] Ariana Brock, OT Lumbar spondylosis Social History Tobacco Use Types Packs/Day Years Used Date Smoking Tobacco: Former Smokeless Tobacco: Never Sex and Gender Information Value Date Recorded Sex Assigned at Not on file Gender Identity Not on file Sexual Orientation Not on file documented as of this encounter Miscellaneous Notes * Treatment - Therapy - Ariana Brock, OT - 05/07/2023 11:00 AM EDT [facility] Occupational Therapy Note [facility] Day 17 Protocol Subjective: Ms. Garduno returns today for a scheduled follow up appointment with [facility]. She reports no new complaints today. She did have a cut on her hand that split open during the 9am hour. She cleaned it and placed a bandaid on it. Utilized hand grippers for any exercise that required sustained oil well service operator. Objective: Refer to [facility] protocol for details and explanation of [...] = 1 x 5 reps Instructed in 10 minutes of mindfulness meditation activity focusing on Progressive muscle relaxation. Participated in a 25 minute outdoor walk including 0.6 mile, up/down one flight of stairs, and 15 minutes of unguarded card game activity involving [...] good form with all functional conditioning exercises. She is feeling a little more confident of keeping up her home exercise program after discharge as she hasher set up all situated. She actively participated with initiation of training [...] AM EST Office Visit Hematology/Oncology at [address] [phone] Erica Yi APRN [address] [place] [address] [place] [address] 09/18/2024 11:00 AM EST Infusion Hematology Oncology at [address] [phone] 10/01/2024 3:45 PM EST Office Visit Functional Presybeterian Program at [facility] [address] [address] Gene Julien Jr., PT 12/23/2024 8:00 AM EST Appointment XRay at [address] [place] [address] River Ochoa MD [address] [place] [address] 01/21/2025 1:00 PM EDT Office Visit Radiation Oncology at [address] [phone] Tory Salazar PA [facility] DR HEMATOLOGY [place] [address] documented as of this encounter Visit Diagnoses Diagnosis Lumbar spondylosis Lumbosacral spondylosis without myelopathy documented in this encounter Care Teams Heater Operator Relationship Specialty Start Date End Date Kay Caldwell MD [address] [place] [address] [address] [place] [address] PCP - General Family Medicine 08/15/22 documented as of this encounter
--- OUTSIDE RECORDS SUMMARY | 2024-09-18 01:19 | XMS_ITS | Encounter Summary ---
Author Organization [facility] [place] [address] Care Team Providers Care Configuration Management Administrator Name Role Phone Kay Caldwell MD Primary Care Provider [phone] Encounter Details Date Type Department Care Team (Latest Contact Info) Description 05/08/2023 Travel Social History Tobacco Use Types Packs/Day [...] AM EST Office Visit Hematology/Oncology at [address] [phone] Erica Yi APRN [address] [place] [address] DR MEDICAL ONCOLOGY [place], [place] [address] 09/18/2024 11:00 AM EST Infusion Hematology Oncology at [address] [phone] 10/01/2024 3:45 PM EST Office Visit Functional Pentecostalism Program at [facility] [address] [place] [address] Gene Julien Jr., PT 12/23/2024 8:00 AM EST Appointment XRay at [facility] [place] [address] River Ochoa MD [address] [place] [address] 01/21/2025 1:00 PM EDT Office Visit Radiation Oncology at [address] [phone] Tory Salazar PA [facility] DR [place] [address] documented as of this encounter Visit Diagnoses Not on filedocumented in this encounter Care Teams Configuration Management Administrator Relationship Specialty Start Date End Date Kay Caldwell MD [address] [place] [address] [address] [place] [address] PCP - General Family Medicine 08/15/22 documented as of this encounter
--- OUTSIDE RECORDS SUMMARY | 2024-09-18 01:19 | XMS_ITS | Encounter Summary ---
Author Organization [facility] [place] [address] Care Team Providers Care Bailer Tenders Supervisor Name Role Phone Kay Caldwell MD Primary Care Provider [phone] Reason for Visit * Reason Comments Back Pain * Consultation (Routine) - Closed Specialty Diagnoses / Procedures Referred By Contac t Referred To [facility] Diagnoses Spondylosis of lumbar region without myelopathy or radiculopathy Procedures [place] GROUP THERAPEUTIC PROCEDURES [place] GROUP THERAPEUTIC PROCEDURES HC OCCUPATIONAL THERAPY EVALUATION MODERATE COMPLEXITY PRO ESTABLISHED PATIENT LEVEL 4 HC ESTABLISHED PATIENT LEVEL 4 PRO ESTABLISHED PATIENT LEVEL 3 HC ESTABLISHED PATIENT LEVEL 3 PRO FUNCTIONAL ROMAN CATHOLIC PROGRAM LECTURE, GROUP HC THERAPEUTIC ACTIVITY EA 15 MIN HC PHYSICAL THERAPY RE-EVALUATION EST PLAN CARE HC PHYSICAL PERFORMANCE TEST W REPORT 15 MIN Jazmín Santiago, BRUNO [facility] [address] [facility] Fr [address] [place] [address] Referral ID Status Reason Start Date Expiration Date Visits Requested Visits Authorized [id number] Closed Functional Restorative Program 03/25/2023 03/24/2024 52 52 Encounter Details Date Type Department Care Team (Late st Contact Info) Description 2023 11:00 AM EDT Office Visit Functional Holiness Program at [facility] [address] [place] [address] Ariana Brock, OT Lumbar spondylosis Social History Tobacco Use Types Packs/Day Years Used Date Smoking Tobacco: Former Smokeless Tobacco: Never Sex and Gender Information Value Date Recorded Sex Assigned at Not on file Gender Identity Not on file Sexual Orientation Not on file documented as of this encounter Miscellaneous Notes * Treatment - Therapy - Ariana Brock, OT - 2023 11:00 AM EDT [facility] Occupational Therapy Note [facility] Day 7 Protocol Subjective: Ms. Garduno returns today for a scheduled follow up appointment with [facility]. She reports her arms feel sore today. Objective: Refer to [facility] protocol for details and explanation of [...] - x20 reps - PEGS 3 minutes/ 2 Functional Crate Lifting: - Floor to Waist (straight- leg lifting) = 2 x 10 reps - Waist to Shoulder = 2x10 reps - Occasional Lift (Squat Lift) = 1 x 5 reps Instructed in 20 minutes of mindfulness meditation activity focusing on body scan. Participated in 20 minutes of unguarded knapp bag toss activity. Self-Care Planning: Instructed in a self care management and relapse prevention strategy known as counteracting strainsof daily living. Handout provided regarding the indications, benefits, and strategies that can be used to alleviate discomfort as part of a self care plan. Provided instruction on a pacing strategy to help determine appropriate activity stop/rest points based on time, rather than symptoms in order to better prevent and manage pain flare-ups. Encouraged her to identify one important activity that she would like to increase tolerance. Please see goals in initial OT evaluation [...] AM EST Office Visit Hematology/Oncology at [address] [phone] Erica Yi APRN [address] [place] [address] [place] [address] 09/18/2024 11:00 AM EST Infusion Hematology Oncology at [address] [phone] 10/01/2024 3:45 PM EST Office Visit Functional Holiness Program at [place] [address] [place] [address] Gene Julien Jr., PT 12/23/2024 8:00 AM EST Appointment XRay at [address] [place] [address] River Ochoa MD [address] [place] [address] 01/21/2025 1:00 PM EDT Office Visit Radiation Oncology at [address] [phone] Tory Salazar PA [facility] [place] [address] documented as of this encounter Visit Diagnoses Diagnosis Lumbar spondylosis Lumbosacral spondylosis without myelopathy documented in this encounter Care Teams Bailer Tenders Supervisor Relationship Specialty Start Date End Date Kay Caldwell MD [address] [place] [address] [address] [place], [place] [address] PCP - General Family Medicine 08/15/22 documented as of this encounter
--- OUTSIDE RECORDS SUMMARY | 2024-09-18 01:19 | XMS_ITS | Encounter Summary ---
Author Organization [facility] [place] [address] Care Team Providers Care African History Professor Name Role Phone Kay Caldwell MD Primary Care Provider [phone] Reason for Visit * Reason Comments Back Pain * Consultation (Routine) - Closed Specialty Diagnoses / Procedures Referred By Contac t Referred To [facility] Diagnoses Spondylosis of lumbar region without myelopathy or radiculopathy Procedures [place] GROUP THERAPEUTIC PROCEDURES AL GROUP THERAPEUTIC PROCEDURES HC OCCUPATIONAL THERAPY EVALUATION MODERATE COMPLEXITY PRO ESTABLISHED PATIENT LEVEL 4 HC ESTABLISHED PATIENT LEVEL 4 PRO ESTABLISHED PATIENT LEVEL 3 HC ESTABLISHED PATIENT LEVEL 3 PRO FUNCTIONAL PRESYBETERIAN PROGRAM LECTURE, GROUP HC THERAPEUTIC ACTIVITY EA 15 MIN HC PHYSICAL THERAPY RE-EVALUATION EST PLAN CARE HC PHYSICAL PERFORMANCE TEST W REPORT 15 MIN Jazmín Santiago, BRUNO [facility] [place] [address] [facility] Fr [address] [place] [address] Referral ID Status Reason Start Date Expiration Date Visits Requested Visits Authorized [id number] Closed Functional Restorative Program 03/25/2023 03/24/2024 52 52 Encounter Details Date Type Department Care Team (Late st Contact Info) Description 04/24/2023 11:00 AM EDT Office Visit Functional Tenriism Program at [facility] [address] [place] [address] Ariana Brock, OT Lumbar spondylosis Social History Tobacco Use Types Packs/Day Years Used Date Smoking Tobacco: Former Smokeless Tobacco: Never Sex and Gender Information Value Date Recorded Sex Assigned at Not on file Gender Identity Not on file Sexual Orientation Not on file documented as of this encounter Progress Notes * Ariana Brock, OT - 04/24/2023 11:00 AM EDT [facility] Occupational Therapy Note [place] Testing [facility] Day 8 Protocol Subjective: Ms. Garduno returns today for a scheduled follow up appointment with [facility]. She reports feeling some fatigue today but overall feeling good about her progress made. Objective: Refer to [facility] protocol for details and explanation of each activity. Ms. Garduno participated in the following activities: Functional Therapy: 1. AM Session of functional conditioning ( X ) Completed ( ) Not Completed 2. PM Session of functional conditioning ( X ) Completed ( ) Not Completed Lifting re-evaluation Functional Strength Testing: Day 1 Day 8 Repetitive Floor to Waist (PILE) 20 35 Instructed in 11 minutes of mindfulness meditation activity focusing on progressive muscle relaxation. Participated in a 20 minute outdoor walk including 0.6 miles, up/down one flight of stairs, and 20 minutes of unguarded knapp bag toss activity. Individualized Treatment: Increased resistance levels of functional conditioning exercises according to personal recovery goals. Completed midway functional strength testing. Used graphs as a visual aide to discuss daily progression of conditioning exercises toward 4 week strength training goals. Will continue to use graphs to map daily progress toward these goals. Met to further discuss and clarify functional recovery goals. We have agreed to set 15-20 lbs as a strength training goal for frequent waist to shoulder lifting, 25lbs as a strength training goal forfrequent floor to waist and 45 lbs as a occasional lifting goal as he would like to be able to meethis vocational and functional goals. Ms. Garduno participated actively in progression of function. Assessment: Ms. Garduno is progressing according to [facility] protocol and her functional goals as notedin initial OT evaluation report on Day 1. Objective testing today confirms she has made substantialgains thus far in terms of her physical capacities. We have increased her lifting goal from 40 to 45 lbs. She is gaining more strength and endurance and confidence in her abilities. We will continue to work on implementation of pacing strategies into her daily living tasks. Plan: Return for follow up with [facility] per protocol. Length of Treatment: Ms. Garduno participated in program activities from 11:00 a.m. through 3:00 p.m. today. A total of 15 minutes were spent during that time to implement individualized occupational therapy strategies. Care was provided by both an Occupational Therapist and Computer Project Manager, SALVADOR Franco Personal Function 3 Month Goals Vocational: None [...] 10:30 AM EST Office Visit Hematology/Oncology at [address] [phone] Erica Yi [address] MEDICAL ONCOLOGY [place], [place] [address] 09/18/2024 11:00 AM EST Infusion Hematology Oncology at [address] [phone] 10/01/2024 3:45 PM EST Office Visit Functional Tenriism Program at [address] [place] [address] Gene Julien Jr., PT 12/23/2024 8:00 AM EST Appointment XRay at [address] [place] [phone] River Ochoa MD [address] [place], [place] [address] 01/21/2025 1:00 PM EDT Office Visit Radiation Oncology at [address] [phone] Tory Salazar PA [facility] DR [place]Y [place] [address] documented as of this encounter Visit Diagnoses Diagnosis Lumbar spondylosis Lumbosacral spondylosis without myelopathy documented in this encounter Care Teams African History Professor Relationship Specialty Start Date End Date Kay Caldwell MD [address] [place] [address] [place] [address] PCP - General Family Medicine 08/15/22 documented as of this encounter
--- OUTSIDE RECORDS SUMMARY | 2024-09-18 01:19 | XMS_ITS | Encounter Summary ---
Author Organization [facility] [place] [address] Care Team Providers Care Conductor Freight Name Role Phone Kay Caldwell MD Primary Care Provider [phone] Reason for Visit * Consultation (Routine) - [...] HC ESTABLISHED PATIENT LEVEL 3 PRO FUNCTIONAL NONDENOMINATIONAL PROGRAM LECTURE, GROUP HC THERAPEUTIC ACTIVITY EA 15 MIN HC PHYSICAL THERAPY RE-EVALUATION EST PLAN CARE HC PHYSICAL PERFORMANCE TEST W REPORT 15 MIN Jazmín Santiago, ROUGHER MACHINE OPERATOR [facility] [place] [address] [facility] [address] [place] [address] Referral ID Status Reason Start Date Expiration Date Visits Requested Visits Authorized [id number] Closed Functional Restorative Program 03/25/2023 03/24/2024 52 52 Encounter Details Date Type Department Care Team (Late st Contact Info) Description 05/01/2023 8:00 AM EDT Office Visit Functional Voodoo Program at [facility] [address] [place] [address] Gene Julien Jr., PT Lumbar [...] Therapy - Gene Julien , PT - 05/01/2023 8:00 AM EDT [facility] Physical Therapy Note P Day 13 Protocol Subjective: Josselyn returns today for a scheduled follow up appointment with [facility]. She reports feeling very sore & stiff. [...] 2 sets to tolerance Cardio performed today: N/A See [facility] flowsheet for details on time held and weights completed Patient participated in all exercises without verbal complaint Assessment: Josselyn returns for follow up visit. She continues to balance activity and pacing strategies effectively during a condensed day. Her trust in her body is building toward her final week of [facility], and she is expected to meet her goals upon completion. Cuing still occasionally necessary for form. She actively participated as a member of the group throughout session. Plan: Return for follow up with [facility] per protocol. Length of visit: Participated [...] Office Visit Hematology/Oncology at [address] [phone] Erica Yi [address] MEDICAL ONCOLOGY [place], [place] [address] 09/18/2024 11:00 AM EST Infusion Hematology Oncology at [address] [phone] 10/01/2024 3:45 PM EST Office Visit Functional Voodoo Program at [address] [place] [address] Gene Julien Jr., PT 12/23/2024 8:00 AM EST Appointment XRay at [address] [place] [address] River Ochoa MD [address] [place] [address] 01/21/2025 1:00 PM EDT Office Visit Radiation Oncology at [address] [phone] Tory Salazar PA [facility] [place] [address] documented as of this encounter Visit Diagnoses [...] myelopathy documented in this encounter Care Teams Conductor Freight Relationship Specialty Start Date End Date Kay Caldwell MD [address] [place] [address] [address] [place], [place] [address] PCP - General Family Medicine 08/15/22 documented as of this encounter
--- OUTSIDE RECORDS SUMMARY | 2024-09-18 01:19 | XMS_ITS | Encounter Summary ---
Author Organization [facility] [place] [address] Care Team Providers Care Pulmonology Physician Name Role Phone Kay Caldwell MD Primary Care Provider [phone] [phone] Encounter Details Date Type Department Care Team (Latest Contact Info) Description 05/17/2023 Travel Social History Tobacco Use Types Packs/Day [...] AM EST Office Visit Hematology/Oncology at [address] [phone] Erica Yi APRN [address] [place] [address] DR MEDICAL ONCOLOGY [place], [place] [address] 09/18/2024 11:00 AM EST Infusion Hematology Oncology at [address] [phone] 10/01/2024 3:45 PM EST Office Visit Functional Mandaen Program at [facility] [address] [place] [address] Gene Julien Jr., PT 12/23/2024 8:00 AM EST Appointment XRay at [facility] [address] River Ochoa MD [address] [place] [address] 01/21/2025 1:00 PM EDT Office Visit Radiation Oncology at [address] [phone] Tory Salazar PA [facility] DR HEMATOLOGY [place] [address] documented as of this encounter Visit Diagnoses Not on filedocumented in this encounter Care Teams Pulmonology Physician Relationship Specialty Start Date End Date Kay Caldwell MD [address] [place] [address] [address] [place] [address] PCP - General Family Medicine 08/15/22 documented as of this encounter
--- OUTSIDE RECORDS SUMMARY | 2024-09-18 01:19 | XMS_ITS | Encounter Summary ---
Author Organization [facility] One [facility] [place] [address] Care Team Providers Care Vertica Architect Name Role Phone Kay Caldwell MD Primary Care Provider [phone] [phone] Encounter Details Date Type Department Care Team (Latest Contact Info) Description 06/03/2023 Travel Social History Tobacco Use Types Packs/Day [...] 10:30 AM EST Office Visit Hematology/Oncology at [address] [phone] Erica Yi APRN [address] [place] [address] DR MEDICAL ONCOLOGY [place], [place] [address] 09/18/2024 11:00 AM EST Infusion Hematology Oncology at [address] [phone] 10/01/2024 3:45 PM EST Office Visit Functional Islam Program at [facility] [address] [place] [address] Gene Julien Jr., PT 12/23/2024 8:00 AM EST Appointment XRay at [facility] [place] [place] [address] River Ochoa MD [address] [place] [address] 01/21/2025 1:00 PM EDT Office Visit Radiation Oncology at [address] [phone] Tory Salazar PA [facility] DR HEMATOLOGY [place] [address] documented as of this encounter Visit Diagnoses Not on filedocumented in this encounter Care Teams Vertica Architect Relationship Specialty Start Date End Date Kay Caldwell MD [address] [place] [address] [address] [place] [address] PCP - General Family Medicine 08/15/22 documented as of this encounter
--- OUTSIDE RECORDS SUMMARY | 2024-09-18 01:19 | XMS_ITS | Encounter Summary ---
Author Organization [facility] [place] [address] Care Team Providers Care Milk Treater Name Role Phone Kay Caldwell MD Primary Care Provider [phone] Reason for Visit * Reason Comments Back [...] HC ESTABLISHED PATIENT LEVEL 3 PRO FUNCTIONAL TENRIISM PROGRAM LECTURE, GROUP HC THERAPEUTIC ACTIVITY EA 15 MIN HC PHYSICAL THERAPY RE-EVALUATION EST PLAN CARE HC PHYSICAL PERFORMANCE TEST W REPORT 15 MIN Jazmín Santiago, BRUNO [facility] [place] [address] [facility] Fr [address] [place] [address] Referral ID Status Reason Start Date Expiration Date Visits Requested Visits Authorized [id number] Closed Functional Restorative Program 03/25/2023 03/24/2024 52 52 Encounter Details Date Type Department Care Team (Late st Contact Info) Description 05/17/2023 9:00 AM EDT Office Visit Functional Evangelical Program at [facility] [address] [place] [address] Louise Oleary, SPOOL TENDER Lumbar spondylosis Social History Tobacco Use Types Packs/Day Years Used Date Smoking Tobacco: Former Smokeless Tobacco: Never Sex and Gender Information Value Date Recorded Sex Assigned at Not on file Gender Identity Not on file Sexual Orientation Not on file documented as of this encounter Miscellaneous Notes * Treatment - Therapy - Louise Oleary, SPOOL TENDER - 05/17/2023 9:00 AM EDT FRP Follow-up Gym Visit Subjective: Josselyn reports that she has been vacuuming and mopping and has returned to her gym a couple of days a week. Objective: Treatment Received: gym Date End of Program 1 Week Status Bicycle L6 mph x 15' L6 mph x 15' Stretching: FIS, EIS FIS, EIS Rwxfz-fu-xjanr str leg lift (x20) 22.5# 22.5# Xidla-iv-rdqhyehb lift (x20) 12.5# 12.5# Squat lift (x5) 40# 40# Patient Education/Home Exercise Program: Reviewed Josselyn's home exercise program and reviewed the importance of continuing to establish consistent routine over time, which she is doing. No barriers to home program identified at this time. Self-Care Program Type of Exercise Specific recommendations Frequency 1 Week Status Mindfulness/ Relaxation 3 minute breathing & Progressive Muscle Relaxation (Culturalite Timer Salvador -Willian Mayo) Deep Breathing (In Through the Nose & Out Through the Mouth) Body Scan 2-3x/day Compliant, and using an salvador to explore additional practices Stretching Mat stretches (mp3 in myD) 5-7x/wk Compliant Daily MECHANICAL STRATEGIES: Back: Press Ups from floor/standing backbends against table & Cat/Cow Neck/Shoulder: Chin tucks, then head back and shake Shoulders/Upper Back: Back bend over chair/edge of bed All At least 2x/day Compliant Daily Cardio/Aerobic/ Endurance (gives endorphine boost - natural pain reliever) Choose from: Walk w/ on Weekends Step routine (mp3 in myDH) Warm Up [place] (mp3 in myD) Elliptical / TM / Bike at Gym 3-7x/wk For 20-30 min Compliant Strength training Gym Routine/Theraband Routine OR Mat Strengthening Routine OR Crate Lifting (1x/wk) 3-5x/wk Compliant Your Self-Care Flare-up Plan: Don't Panic, take [...] that will cause lasting change. Assessment: Josselyn has maintained gains made in the FRP and demonstrates good understanding of her home exercise program as well as the importance of continuing stretching, strengthening, mindfulnesspractice and cardiovascular exercise to maintain/increase functional capacities. She was able to make the necessary adjustments to resistance with the weight machines at her gym without significant challenge and overall is doing very well. Goals: Maintain/increase functional capacities. Plan: Josselyn will meet with MIKE Snow, for the P follow-up in approximately one month. Josselyn was encouraged to call with any questions or concerns regarding today's visit or the home exercise program. Length of visit: A total of 30 minutes was spent educating and treating Josselyn and reviewing her home exercise program. documented in this encounter Plan of Treatment Upcoming Encounters Date Type Department Care Team (Late st Contact Info) Description 09/18/2024 10:30 AM EST Office Visit Hematology/Oncology at [address] [phone] Erica Yi APRN [address] [place] [address] [place] [address] 09/18/2024 11:00 AM EST Infusion Hematology Oncology at [address] [phone] 10/01/2024 3:45 PM EST Office Visit Functional Evangelical Program at [facility] [address] [place] [address] Gene Julien Jr., PT 12/23/2024 8:00 AM EST Appointment XRay at [address] [place] [address] River Ochoa MD [address] [place] [address] 01/21/2025 1:00 PM EDT Office Visit Radiation Oncology at [address] [phone] Tory Salazar PA [facility] DR [place] [address] documented as of this encounter Visit Diagnoses Diagnosis Lumbar spondylosis Lumbosacral spondylosis without myelopathy documented in this encounter Care Teams Milk Treater Relationship Specialty Start Date End Date Kay Caldwell MD [address] [place] [address] [address] [place], [place] [address] PCP - General Family Medicine 08/15/22 documented as of this encounter
--- OUTSIDE RECORDS SUMMARY | 2024-09-18 01:19 | XMS_ITS | Encounter Summary ---
Author Organization [facility] [place] [address] Care Team Providers Care Ophthalmology Technician Name Role Phone Kay Caldwell MD Primary Care Provider [phone] Encounter Details Date Type Department Care Team (Latest Contact Info) Description 05/09/2023 Travel Social History Tobacco Use Types Packs/Day [...] AM EST Office Visit Hematology/Oncology at [address] [phone] Erica Yi APRN [address] [place] [address] DR MEDICAL ONCOLOGY [place], [place] [address] 09/18/2024 11:00 AM EST Infusion Hematology Oncology at [address] [phone] 10/01/2024 3:45 PM EST Office Visit Functional Uatsdin Program at [facility] [address] [place] [address] Gene Julien Jr., PT 12/23/2024 8:00 AM EST Appointment XRay at [facility] [place] [address] River Ochoa MD [address] [place] [address] 01/21/2025 1:00 PM EDT Office Visit Radiation Oncology at [address] [phone] Tory Salazar PA [facility] DR HEMATOLOGY [place] [address] documented as of this encounter Visit Diagnoses Not on filedocumented in this encounter Care Teams Ophthalmology Technician Relationship Specialty Start Date End Date Kay Caldwell MD [address] [place] [address] [address] [place] [address] PCP - General Family Medicine 08/15/22 documented as of this encounter
--- OUTSIDE RECORDS SUMMARY | 2024-09-18 01:19 | XMS_ITS | Encounter Summary ---
Author Organization [facility] [place] [address] Care Team Providers Care Shop Fitter Name Role Phone Kay Caldwell MD Primary Care Provider [phone] Reason for Visit * Consultation (Routine) - Closed Specialty Diagnoses / Procedures Referred By Contac t Referred To [facility] Diagnoses Spondylosis of lumbar region without myelopathy or radiculopathy Procedures PA GROUP THERAPEUTIC PROCEDURES PA GROUP THERAPEUTIC PROCEDURES HC OCCUPATIONAL THERAPY EVALUATION MODERATE COMPLEXITY PRO ESTABLISHED PATIENT LEVEL 4 HC ESTABLISHED PATIENT LEVEL 4 PRO ESTABLISHED PATIENT LEVEL 3 HC ESTABLISHED PATIENT LEVEL 3 PRO FUNCTIONAL ORIENTAL ORTHODOX PROGRAM LECTURE, GROUP HC THERAPEUTIC ACTIVITY EA 15 MIN HC PHYSICAL THERAPY RE-EVALUATION EST PLAN CARE HC PHYSICAL PERFORMANCE TEST W REPORT 15 MIN Jazmín Santiago, BRUNO [facility] [place] [address] [facility] Fr [address] [place] [address] Referral ID Status Reason Start Date Expiration Date Visits Requested Visits Authorized [id number] Closed Functional Restorative Program 03/25/2023 03/24/2024 52 52 Encounter Details Date Type Department Care Team (Late st Contact Info) Description 05/10/2023 11:00 AM EDT Office Visit Functional Baptist Program at [facility] [address] [place] [address] Ariana Brock, OT Lumbar spondylosis Social History Tobacco Use Types Packs/Day Years Used Date Smoking Tobacco: Former Smokeless Tobacco: Never Sex and Gender Information Value Date Recorded Sex Assigned at Not on file Gender Identity Not on file Sexual Orientation Not on file documented as of this encounter Miscellaneous Notes * Discharge - Therapy - Ariana Brock OT - 05/10/2023 11:00 AM EDT FRP Occupational Therapy Note FRP Graduation Note [facility] Day 20 Protocol Subjective: Ms. Garduno returns today for a scheduled follow up appointment with [facility]. She reports that she is intent on keeping up with a structured exercise program at home and local gym to continue progressing her physical capacities. Overall, she reports feeling pleased with the functional gains she has made so far. Objective: Refer to [facility] protocol for details and explanation of each activity. Ms. Garduno participated in the following activities: Functional Therapy 1. Cardio and stretch ( X ) Completed ( ) Not Completed 2. Outlined a specific home lifting program with Ms. Garduno for her to continue progressing her functional capacities after discharge. Reviewed and finalized home lifting program. Home program was: ( X ) Unchanged: Provided a printed list of the weights of common household objects for her to put in her crate for crate lifting ( ) Modified to include: Assessment: Ms. Garduno has progressed according to protocol, she has met her initial lifting goals, and she has made progress toward her 3-month functional goals. Plan: 1. Discharge with home conditioning program 2. Return for [facility] follow up in 1 week, 1 month, and as needed 3. Ms. Garduno will contact [facility] staff if she experiences problems with her home program or needs additional support for flare-up management issues. Length of Treatment: Ms. Garduno participated in program activities from 8:00 a.m. to 10:00 a.m. today. documented in this encounter Plan of Treatment Upcoming Encounters Date Type Department Care Team (Late st Contact Info) Description 09/18/2024 10:30 AM EST Office Visit Hematology/Oncology at [address] [phone] Erica Yi APRN [address] [place] [address] [place] [address] 09/18/2024 11:00 AM EST Infusion Hematology Oncology at [address] [phone] 10/01/2024 3:45 PM EST Office Visit Functional Baptist Program at [facility] [address] [place] [address] Gene Julien Jr., PT 12/23/2024 8:00 AM EST Appointment XRay at [address] [place] [address] River Ochoa MD [address] [place], [place] [address] 01/21/2025 1:00 PM EDT Office Visit Radiation Oncology at [address] [phone] Tory Salazar PA [facility] DR HEMATOLOGY [place] [address] documented as of this encounter Visit Diagnoses Diagnosis Lumbar spondylosis Lumbosacral spondylosis without myelopathy documented in this encounter Care Teams Shop Fitter Relationship Specialty Start Date End Date Kay Caldwell MD [address] [place] [address] [address] [place], [place] [address] PCP - General Family Medicine 08/15/22 documented as of this encounter
--- OUTSIDE RECORDS SUMMARY | 2024-09-18 01:19 | XMS_ITS | Encounter Summary ---
Author Organization [facility] [place] [address] Care Team Providers Care Mobile Home Set Up Person Name Role Phone Kay Caldwell MD Primary Care Provider [phone] Reason for Visit * Reason Comments Back Pain * Consultation (Routine) - Closed Specialty Diagnoses / Procedures Referred By Contac t Referred To [facility] Diagnoses Spondylosis of lumbar region without myelopathy or radiculopathy Procedures WA GROUP THERAPEUTIC PROCEDURES WA GROUP THERAPEUTIC PROCEDURES HC OCCUPATIONAL THERAPY EVALUATION MODERATE COMPLEXITY PRO ESTABLISHED PATIENT LEVEL 4 HC ESTABLISHED PATIENT LEVEL 4 PRO ESTABLISHED PATIENT LEVEL 3 HC ESTABLISHED PATIENT LEVEL 3 PRO FUNCTIONAL ANABAPTIST PROGRAM LECTURE, GROUP HC THERAPEUTIC ACTIVITY EA 15 MIN HC PHYSICAL THERAPY RE-EVALUATION EST PLAN CARE HC PHYSICAL PERFORMANCE TEST W REPORT 15 MIN Jazmín Santiago, BRUNO [facility] [place] [address] [facility] Fr [address] [place] [address] Referral ID Status Reason Start Date Expiration Date Visits Requested Visits Authorized [id number] Closed Functional Restorative Program 03/25/2023 03/24/2024 52 52 Encounter Details Date Type Department Care Team (Late st Contact Info) Description 05/06/2023 11:00 AM EDT Office Visit Functional Yazidi Program at [facility] [address] [place] [address] Ariana Brock, OT Lumbar spondylosis Social History Tobacco Use Types Packs/Day Years Used Date Smoking Tobacco: Former Smokeless Tobacco: Never Sex and Gender Information Value Date Recorded Sex Assigned at Not on file Gender Identity Not on file Sexual Orientation Not on file documented as of this encounter Progress Notes * Ariana Brock, OT - 05/06/2023 11:00 AM EDT FRP Occupational Therapy Note [facility] Day 16 Protocol Subjective: Ms. Garduno returns today for a scheduled follow up appointment with [facility]. She reports having a good weekend, however felt she overdid it this weekend. Objective: Refer to [facility] protocol for details and explanation [...] minutes of mindfulness meditation activity focusing on Body Scan. Participated in 15 minutes of unguarded beach ball volleyball activity. Self-Care Planning: Ms. Garduno was oriented to the resources provided in the program binder that describe the variouscardio, stretching, and strengthening exercises completed during [facility] that can be incorporated into their home-based self-care program. Ms. Garduno was educated in the process used to develop their self-care program. She was instructed to identify which exercises she finds most beneficial and practical, to prepare for an individual meeting with the PT prior to discharge, to finalize her individual self care plan. Ms. Garduno was advised to follow the program routine developed jointly with the FRP team for 3-6 months post discharge, to ensure understanding of the basic principles discussed, with ample time toget used to an established routine. Please see goals in initial OT evaluation [...] with all functional conditioning exercises. She is more aware of having to utilize pacing strategies while completing tasks such as walking and utilization of positional changes will be helpful as well post program. She actively participated with initiation of training [...] AM EST Office Visit Hematology/Oncology at [address] [phone] Erica Yi APRN [address] [place] [address] [place] [address] 09/18/2024 11:00 AM EST Infusion Hematology Oncology at [address] [phone] 10/01/2024 3:45 PM EST Office Visit Functional Yazidi Program at [facility] [address] [place] [address] Gene Julien Jr., PT 12/23/2024 8:00 AM EST Appointment XRay at [address] [place] [address] River Ochoa MD [address] [place], [place] [address] 01/21/2025 1:00 PM EDT Office Visit Radiation Oncology at [address] [phone] Tory Salazar PA [facility] HEMATOLOGY [place] [address] documented as of this encounter Visit Diagnoses Diagnosis Lumbar spondylosis Lumbosacral spondylosis without myelopathy documented in this encounter Care Teams Mobile Home Set Up Person Relationship Specialty Start Date End Date Kay Caldwell MD [address] [place] [address] [address] [place], [place] [address] PCP - General Family Medicine 08/15/22 documented as of this encounter
--- OUTSIDE RECORDS SUMMARY | 2024-09-18 01:19 | XMS_ITS | Encounter Summary ---
Author Organization [facility] [place] [address] Care Team Providers Care Drag Out Worker Name Role Phone Kay Caldwell MD Primary Care Provider [phone] Reason for Visit * Reason Comments Back [...] HC ESTABLISHED PATIENT LEVEL 3 PRO FUNCTIONAL MANDAEN PROGRAM LECTURE, GROUP HC THERAPEUTIC ACTIVITY EA 15 MIN HC PHYSICAL THERAPY RE-EVALUATION EST PLAN CARE HC PHYSICAL PERFORMANCE TEST W REPORT 15 MIN Jazmín Santiago APRN [facility] [place] [address] [facility] Fr [address] [place] [address] Referral ID Status Reason Start Date Expiration Date Visits Requested Visits Authorized [id number] Closed Functional Restorative Program 03/25/2023 03/24/2024 52 52 Encounter Details Date Type Department Care Team (Late st Contact Info) Description 04/26/2023 11:00 AM EDT Office Visit Functional Mosque Program at [facility] [address] [place] [address] Louise Oleary OTA Lumbar spondylosis Social History Tobacco Use Types Packs/Day Years Used Date Smoking Tobacco: Former Smokeless Tobacco: Never Sex and Gender Information Value Date Recorded Sex Assigned at Not on file Gender Identity Not on file Sexual Orientation Not on file documented as of this encounter Miscellaneous Notes * Treatment - Therapy - Louise Oleary OTA - 04/26/2023 11:00 AM EDT P Occupational Therapy Note [facility] Day 10 Protocol Subjective: Ms. Garduno returns today for a scheduled follow up appointment with [facility]. She reports no new concerns today. Objective: Refer to [facility] protocol for details and explanation [...] X ) Completed ( ) Not Completed Outdoor walk with stairs x .75 miles Instructed in 22 minutes of progressive muscle relaxation mindfulness meditation activity. Provided an overview of a home exercise program to keep up with over the weekend to maintain progress to date, focusing on walking, stretching, functional lifting, and mindfulness meditation. Assigned target lifting goals for the upcoming weekend. Home exercise program to include once dailyfunctional lifting of forward bend x 20 repetitions and squat x 5 repetitions. Will compliment withonce daily walking session, twice daily stretching sessions, and mindfulness meditation. Weekend Lifting Numbers Type of lift Weight Forward Bend 15 Squat 25 Please see goals in initial OT evaluation [...] in program activities from 11:00 a.m. through 2:30 p.m. today as part of group intervention [...] 10:30 AM EST Office Visit Hematology/Oncology at [address] [phone] Erica Yi APRN [address] [place] [address] [place] [address] 09/18/2024 11:00 AM EST Infusion Hematology Oncology at [address] [phone] 10/01/2024 3:45 PM EST Office Visit Functional Mosque Program at [place] [address] [place] [address] Gene Julien Jr., PT 12/23/2024 8:00 AM EST Appointment XRay at [address] [place] [address] River Ochoa MD [address] [place] [address] 01/21/2025 1:00 PM EDT Office Visit Radiation Oncology at [address] [phone] Tory Salazar PA [facility] DR [place] [address] documented as of this encounter Visit Diagnoses Diagnosis Lumbar spondylosis Lumbosacral spondylosis without myelopathy documented in this encounter Care Teams Drag Out Worker Relationship Specialty Start Date End Date Kay Caldwell MD [address] [place] [address] [address] [place] [address] PCP - General Family Medicine 08/15/22 documented as of this encounter
--- OUTSIDE RECORDS SUMMARY | 2024-09-18 01:19 | XMS_ITS | Encounter Summary ---
Author Organization [facility] [place] [address] Care Team Providers Care Adobe Developer Name Role Phone Kay Caldwell MD Primary Care Provider [phone] Reason for Visit * Reason Comments Back [...] HC ESTABLISHED PATIENT LEVEL 3 PRO FUNCTIONAL ORTHODOX PROGRAM LECTURE, GROUP HC THERAPEUTIC ACTIVITY EA 15 MIN HC PHYSICAL THERAPY RE-EVALUATION EST PLAN CARE HC PHYSICAL PERFORMANCE TEST W REPORT 15 MIN Jazmín Santiago, BRUNO [facility] [place] [address] [facility] Fr [address] [place] [address] Referral ID Status Reason Start Date Expiration Date Visits Requested Visits Authorized [id number] Closed Functional Restorative Program 03/25/2023 03/24/2024 52 52 Encounter Details Date Type Department Care Team (Late st Contact Info) Description 05/03/2023 11:00 AM EDT Office Visit Functional Hindu Program at [facility] [address] [place] [address] Ariana Brock, OT Lumbar spondylosis Social History Tobacco Use Types Packs/Day Years Used Date Smoking Tobacco: Former Smokeless Tobacco: Never Sex and Gender Information Value Date Recorded Sex Assigned at Not on file Gender Identity Not on file Sexual Orientation Not on file documented as of this encounter Miscellaneous Notes * Treatment - Therapy - Ariana Brock, OT - 05/03/2023 11:00 AM EDT [facility] Occupational Therapy Note [facility] Day 15 Protocol Subjective: Ms. Garduno returns today for a scheduled follow up appointment with [facility]. She reports no new complaints. Objective: Refer to [facility] protocol for details and explanation of [...] = 1 x 5 reps Instructed in 5 minutes of mindfulness meditation activity focusing on silent meditation. Participated in 15 minutes of unguarded knapp bag toss activity. Please see goals in initial OT [...] good form with all functional conditioning exercises and has done well with progression towards her functional goals. She actively participated with initiationof training components. They were supportive of the [...] 10:30 AM EST Office Visit Hematology/Oncology at [address] [phone] Erica Yi APRN [address] [place] [address] MEDICAL ONCOLOGY [place], [place] [id number] 09/18/2024 11:00 AM EST Infusion Hematology Oncology at [address] [address] 10/01/2024 3:45 PM EST Office Visit Functional Hindu Program at [address] [place] [address] Gene Julien Jr., PT 12/23/2024 8:00 AM EST Appointment XRay at [address] [place] [address] River Ochoa MD [address] [place] [address] 01/21/2025 1:00 PM EDT Office Visit Radiation Oncology at [address] [phone] Tory Salazar PA [facility] [place] [address] documented as of this encounter Visit Diagnoses Diagnosis Lumbar spondylosis Lumbosacral spondylosis without myelopathy documented in this encounter Care Teams Adobe Developer Relationship Specialty Start Date End Date Kay Caldwell MD [address] [place] [address] [place] [address] PCP - General Family Medicine 08/15/22 documented as of this encounter
--- OUTSIDE RECORDS SUMMARY | 2024-09-18 01:19 | XMS_ITS | Encounter Summary ---
Author Organization [facility] [place] [address] Care Team Providers Care Field Appraiser Name Role Phone Kay Caldwell MD Primary Care Provider [phone] Encounter Details Date Type Department Care Team (Latest Contact Info) Description 05/01/2023 Travel Social History Tobacco Use Types Packs/Day [...] AM EST Office Visit Hematology/Oncology at [address] [phone] Erica Yi APRN [address] [place] [address] DR MEDICAL ONCOLOGY [place], [place] [address] 09/18/2024 11:00 AM EST Infusion Hematology Oncology at [address] [phone] 10/01/2024 3:45 PM EST Office Visit Functional Faith Program at [facility] [address] [place] [address] Gene Julien Jr., PT 12/23/2024 8:00 AM EST Appointment XRay at [facility] [place] [address] River Ochoa MD [address] [place] [address] 01/21/2025 1:00 PM EDT Office Visit Radiation Oncology at [address] [phone] Tory Salazar PA [facility] DR [place] [address] documented as of this encounter Visit Diagnoses Not on filedocumented in this encounter Care Teams Field Appraiser Relationship Specialty Start Date End Date Kay Caldwell MD [address] [place] [address] [place] [address] PCP - General Family Medicine 08/15/22 documented as of this encounter
--- OUTSIDE RECORDS SUMMARY | 2024-09-18 01:19 | XMS_ITS | Encounter Summary ---
Author Organization [facility] [place] [address] Care Team Providers Care Door Framer Name Role Phone Kay Caldwell MD Primary Care Provider [phone] Reason for Visit * Consultation (Routine) - Closed Specialty Diagnoses / Procedures Referred By Contac t Referred To [facility] Diagnoses Spondylosis of lumbar region without myelopathy or radiculopathy Procedures MO GROUP THERAPEUTIC PROCEDURES MO GROUP THERAPEUTIC PROCEDURES HC OCCUPATIONAL THERAPY EVALUATION MODERATE COMPLEXITY PRO ESTABLISHED PATIENT LEVEL 4 HC ESTABLISHED PATIENT LEVEL 4 PRO ESTABLISHED PATIENT LEVEL 3 HC ESTABLISHED PATIENT LEVEL 3 PRO FUNCTIONAL YARSANI PROGRAM LECTURE, GROUP HC THERAPEUTIC ACTIVITY EA 15 MIN HC PHYSICAL THERAPY RE-EVALUATION EST PLAN CARE HC PHYSICAL PERFORMANCE TEST W REPORT 15 MIN Jazmín Santiago GIS COORDINATOR [facility] [place] [address] [facility] Fr [address] [place] [address] Referral ID Status Reason Start Date Expiration Date Visits Requested Visits Authorized [id number] Closed Functional Restorative Program 03/25/2023 03/24/2024 52 52 Encounter Details Date Type Department Care Team (Late st Contact Info) Description 05/10/2023 8:00 AM EDT Office Visit Functional Sabianist Program at [facility] [address] [place] [address] Bailey Fox APRN [facility] [place] [address] Lumbar spondylosis; Cluneal neuropathy; Lumbar foraminal stenosis; Radiculopathy of lumbar region Social History Tobacco Use Types Packs/Day Years Used Date Smoking Tobacco: Former Smokeless Tobacco: Never Sex and Gender Information Value Date Recorded Sex Assigned at Not on file Gender Identity Not on file Sexual Orientation Not on file documented as of this encounter Progress Notes * Bailey Fox APRN - 05/10/2023 8:00 AM EDT [facility] Functional Sabianist Program Discharge Summary Ms. Josselyn Garduno [id number] 05/10/2023 I, Arielle Freeman, am compiling the information for Bailey Fox APRN to discuss and review with the patient. Ms. Garduno attended the Functional Sabianist Program (FRP) from April 15 to April . The FRP combines progressive physical training, pain and disability education, behavioral med icine and vocational/activity planning geared toward achieving personal functional goals. I met with Ms. Garduno for 30 minutes today to discuss her discharge and progress in the Functional Sabianist Program as written in this note. We discussed medical progress, imaging, surgical decision making, current pain and functional status, compared that status to personal recovery goals and established the plan of care accordingly as below. Ms. Garduno attended the FRP for 19 of 19 days and participation level was consistent and high. Use of self care skills includes stretching, strengthening, cardiovascular conditioning, relaxation and pacing skills. The chief complaint requiring rehabilitation was right sided flank, and low back [...] knee replacements, Osteoarthritis HTN, Anxiety and depression. 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 The progress during the FRP was remarkable for the following outcomes. Results of the Questionnaires You Filled out: [facility] QUESTIONNAIRE TOTALS 04/15/2023 05/09/2023 INSOMNIA SEVERITY INDEX (0-28) 3 (No clinically significant insomnia) 3 (No clinically significant insomnia) Total PHQ-9 (0-27) 8 (Mild Depression) 3 (Minimal Depression) Central Sensitization Inventory (0-100) 39 (Mild) 22 (Subclinical) PDQ Total Score (0-150) 17 (Mild/moderate) 3 (Mild/moderate) ROSALINE-7 (0-21) 6 (Mild Anxiety) 3 (Minimal Anxiety) Facs Scoring (0-100) 25 (Mild) 0 (Subclinical) Visual Analog Scale (VAS) for Pain Score (0-10) 2.57 0.91 Pain over the last week rating score (0-10) 2.05 1.51 Title Endurance and Flexibility Test Results: Reported Tolerance (minutes) First Day of FRP: End of FRP: 1 Month Follow-up: 3 Month Follow-up (optional): Sittin 120 Standin 120 Walkin 30 Flexibility (degrees): Neck: First Day of FRP: End of FRP: 1 Month Follow-up: 3 Month Follow-up (optional): Bending Forward: 60 75 Bending Back: 45 65 Turning Right: 45 70 Turning Left: 45 65 Tilting Right: 25 30 Tilting Left: 25 35 Low Back: First Day of FRP: End of FRP: 1 Month Follow-up: 3 Month Follow-up (optional): Bending Forward: 55 70 Bending Back: 10 25 Straight Leg Raise Right: 65 90 Straight Leg Raise Left: 65 90 Straight Leg Raise Pelvic: Treadmill First Day of FRP: End of FRP: 1 Month Follow-up: 3 Month Follow-up (optional): MET Level: Heart Rate: MET Level: Heart Rate: MET Level: Heart Rate: MET Level: Heart Rate: Treadmill Endurance: 7 132 7 114 Reason for Stopping (if applicable): Short of breath (hands on rails) Short of Breath FRP OT Objective Measures Physical Capacity Test Results: Lifting: (pounds/heart rate) First Day of FRP End of Program 1 Month Follow-Up 3 Month Follow-Up Repetitive Floor to Waist 50/120 Repetitive Waist to Shoulder 20/105 1-Time Maximum 25 55 2-Handed Carry - 50 ft 20 45 Work Demand Level Light Medium Your Functional Goals: Functional Goals- First Day of FRP: Progress Toward Goals- End of FRP: Progress Toward Goals- 1 Month Follow-up: Progress Toward Goals- 3 Month Follow-up (optional): Vocational: None Identified Retired Recreational: Be able to resume Dolly class and exercise routine Be able to walk for longer periods (at least 1-2 hours) Be able to garden Home set up is ready to go; going to try to resume Dolly class. Has been doing some 20 minute walks, needs to incorporate pacing strategies. Planning to do some gardening this weekend. Daily Living: Be able to stand to cook a meal, going up and down stairs more easily Be able to do housework including vacuuming. Be able to bend over to reach items off ground, lower shelf. Be able to lift and carry heavier groceries, laundry basket. Doesn't feel this will be a problem, planning to utilize pacing strategies and change position; Has been working on stairs here in program, will be utilizing stairs as her home gym is in basement. Planning to do some vacuuming next week. Finds there is a big improvement in flexibility, thinks this will be no problem. Carried in groceries last weekend and thinks carrying laundry will be no problem. Lifting Goal: 40 End of Program Lifting Status: 50 NOTE: Team members included in discharge meeting include, Gene Julien Jr, DPT, Cert MDT and Ariana Brock OTR/L Discharge Plan Self-care exercise program Self-Care Program Type of Exercise Specific recommendations [...] Step routine (mp3 in myDH) Warm Up Culver (mp3 in myDH) Elliptical / TM / [...] tools (exercise) that will cause lasting change. Vocational Planning: Job to return to: No , retired Plan to start work at the end of the program: No , see above Follow-up Primary Care: Kay Caldwell MD Medication Management: Kay Caldwell MD Please arrive to all post program appointments wearing gym clothes and sneakers. You will be re-tested at these visits. Post Program Appointment Provider Arrival Time Location 1 Week Follow Up Wednesday, May 17, 2023 Louise Oleary PTA/EMERGENCY CARE TECH 9:[address] 1 Month Follow Up May Tablet Questionnaire MIKE Snow/Collette Santiago APRN 7:30 AM 8:00 AM 9:[address] [facility] Application Engineer [address] [place] [address] *Please note that your tablet questionnaires can be completed through [facility] the day prior to your appointment. Please plan for a 1-year survey follow-up. I, Bailey Fox, have reviewed the above compiled information and agree with its accuracy. I spentthe the entire 30 minutes with the patient discussing progress, goals and plans as documented in this note. cc: Josselyn Garduno [phone] [facility] [address] Kay Caldwell MD [address] [place] [address] [place] [address] documented in this encounter Plan of Treatment Upcoming Encounters Date Type Department Care Team (Late st Contact Info) Description 09/18/2024 10:30 AM EST Office Visit Hematology/Oncology at [address] [phone] Erica Yi GIS COORDINATOR [address] [place] [address] DR MEDICAL ONCOLOGY [place], [place] [phone] 09/18/2024 11:00 AM EST Infusion Hematology Oncology at [address] [phone] 10/01/2024 3:45 PM EST Office Visit Functional Sabianist Program at [address] [place] [address] Gene Julien Jr., PT 12/23/2024 8:00 AM EST Appointment XRay at [address] [place] [address] River Ochoa MD [address] [place] [address] 01/21/2025 1:00 PM EDT Office Visit Radiation Oncology at [address] [phone] Tory Salazar PA [facility] HEMATOLOGY [place] [address] documented as of this encounter Visit Diagnoses Diagnosis Lumbar spondylosis Lumbosacral spondylosis without myelopathy Cluneal neuropathy Lumbar foraminal stenosis Spinal stenosis, lumbar region, without neurogenic claudication Radiculopathy of lumbar region Thoracic or lumbosacral neuritis or radiculitis, unspecified documented in this encounter Care Teams Door Framer Relationship Specialty Start Date End Date Kay Caldwell MD [address] [place] [address] [address] [place] [address] PCP - General Family Medicine 08/15/22 documented as of this encounter
--- OUTSIDE RECORDS SUMMARY | 2024-09-18 01:19 | XMS_ITS | Encounter Summary ---
Author Organization [facility] [place] [address] Care Team Providers Care Partner Integration Planner Name Role Phone Kay Caldwell MD Primary Care Provider [phone] Reason for Visit * Reason Comments Back Pain * Consultation (Routine) - Closed Specialty Diagnoses / Procedures Referred By Contac t Referred To [facility] Diagnoses Spondylosis of lumbar region without myelopathy or radiculopathy Procedures MA GROUP THERAPEUTIC PROCEDURES MA GROUP THERAPEUTIC PROCEDURES HC OCCUPATIONAL THERAPY EVALUATION MODERATE COMPLEXITY PRO ESTABLISHED PATIENT LEVEL 4 HC ESTABLISHED PATIENT LEVEL 4 PRO ESTABLISHED PATIENT LEVEL 3 HC ESTABLISHED PATIENT LEVEL 3 PRO FUNCTIONAL ORTHODOX PROGRAM LECTURE, GROUP HC THERAPEUTIC ACTIVITY EA 15 MIN HC PHYSICAL THERAPY RE-EVALUATION EST PLAN CARE HC PHYSICAL PERFORMANCE TEST W REPORT 15 MIN Jazmín Santiago, BRUNO [facility] [place] [address] [facility] Fr [address] [place] [address] Referral ID Status Reason Start Date Expiration Date Visits Requested Visits Authorized [id number] Closed Functional Restorative Program 03/25/2023 03/24/2024 52 52 Encounter Details Date Type Department Care Team (Late st Contact Info) Description 04/30/2023 8:00 AM EDT Office Visit Functional Cheondoism Program at [facility] [address] [place] [address] Louise Oleary, CELL SUPPORT OPERATOR Lumbar spondylosis Social History Tobacco Use Types Packs/Day Years Used Date Smoking Tobacco: Former Smokeless Tobacco: Never Sex and Gender Information Value Date Recorded Sex Assigned at Not on file Gender Identity Not on file Sexual Orientation Not on file documented as of this encounter Miscellaneous Notes * Treatment - Therapy - Louise Oleary, CELL SUPPORT OPERATOR - 04/30/2023 8:00 AM EDT P Physical Therapy Note P Day 12 Protocol Subjective: Josselyn returns today for a scheduled follow up appointment with [facility]. She reports no newcomplaints. Objectives and Treatment Received Exercises performed as [...] L Step Up and Over Forward Bending Backward Bending Chin Tuck Neck Extensions 30 Minutes Exercise Ball (2 x 20 each) Prone Arm Raises Prone Leg Raises Supine Lower Trunk Rotation Supine Bridges Supine Total Abdominal Crunches (Pass ball feet <->hands- knees bent) Press Ups Dumbbells - Bicep curls, shoulder [...] TM x 10 min x L3-4 See [facility] flowsheet for details on time held and weights completed Patient participated in all exercises without verbal complaint Assessment: Josselyn returns for follow up visit. She was able to progress weights with increasing independence and maintained form with intermittent cues to avoid compensation. Managed well with increased mat strengthening exercises to 2 sets of 20 repetitions. She actively participated as a member of the group throughout session. Plan: Return for follow up with [facility] per protocol. Length of visit: [...] 10:30 AM EST Office Visit Hematology/Oncology at [address] [phone] Erica Yi, EQUIPMENT OR MACHINERY CLEANER [address] [place] [address] DR MEDICAL ONCOLOGY [place], [place] [address] 09/18/2024 11:00 AM EST Infusion Hematology Oncology at [address] [phone] 10/01/2024 3:45 PM EST Office Visit Functional Cheondoism Program at [address] [facility] [place] [address] Gene Julien Jr., PT 12/23/2024 8:00 AM EST Appointment XRay at [address] [place] [address] River Ochoa MD [address] [place], [place] [address] 01/21/2025 1:00 PM EDT Office Visit Radiation Oncology at [address] [phone] Tory Salazar PA [facility] HEMATOLOGY [place] [address] documented as of this encounter Visit Diagnoses Diagnosis Lumbar spondylosis Lumbosacral spondylosis without myelopathy documented in this encounter Care Teams Partner Integration Planner Relationship Specialty Start Date End Date Kay Caldwell MD [address] [place] [address] [place] [address] PCP - General Family Medicine 08/15/22 documented as of this encounter
--- OUTSIDE RECORDS SUMMARY | 2024-09-18 01:19 | XMS_ITS | Encounter Summary ---
Author Organization [facility] [place] [address] Care Team Providers Care Building Engineer Name Role Phone Kay Caldwell MD Primary Care Provider [phone] Encounter Details Date Type Department Care Team (Latest Contact Info) Description 05/10/2023 Travel Social History Tobacco Use Types Packs/Day [...] AM EST Office Visit Hematology/Oncology at [address] [phone] Erica Yi APRN [address] [place] [address] DR MEDICAL ONCOLOGY [place], [place] [address] 09/18/2024 11:00 AM EST Infusion Hematology Oncology at [address] [phone] 10/01/2024 3:45 PM EST Office Visit Functional Sikhism Program at [facility] [address] [place] [address] Gene Julien Jr., PT 12/23/2024 8:00 AM EST Appointment XRay at [facility] [place] [address] River Ochoa MD [address] [place] [address] 01/21/2025 1:00 PM EDT Office Visit Radiation Oncology at [address] [phone] Tory Salazar PA [facility] DR [place] [address] documented as of this encounter Visit Diagnoses Not on filedocumented in this encounter Care Teams Building Engineer Relationship Specialty Start Date End Date Kay Caldwell MD [address] [place] [address] [place] [address] PCP - General Family Medicine 08/15/22 documented as of this encounter
--- OUTSIDE RECORDS SUMMARY | 2024-09-18 01:19 | XMS_ITS | Encounter Summary ---
Author Organization Formerly [facility] [place] [address] Care Team Providers Care Business Records Manager Name Role Phone Kay Caldwell MD Primary Care Provider [phone] Reason for Visit * Consultation (Routine) - Closed Specialty Diagnoses / Procedures Referred By Contac t Referred To Contact [facility] Diagnoses Spondylosis of lumbar region without myelopathy or radiculopathy Procedures UT GROUP THERAPEUTIC PROCEDURES UT GROUP THERAPEUTIC PROCEDURES HC OCCUPATIONAL THERAPY EVALUATION MODERATE COMPLEXITY PRO ESTABLISHED PATIENT LEVEL 4 HC ESTABLISHED PATIENT LEVEL 4 PRO ESTABLISHED PATIENT LEVEL 3 HC ESTABLISHED PATIENT LEVEL 3 PRO FUNCTIONAL HINDUISM PROGRAM LECTURE, GROUP HC THERAPEUTIC ACTIVITY EA 15 MIN HC PHYSICAL THERAPY RE-EVALUATION EST PLAN CARE HC PHYSICAL PERFORMANCE TEST W REPORT 15 MIN Jazmín Santiago, WIRE INSULATOR [facility] [address] [facility] Frp [address] [place] [address] Referral ID Status Reason Start Date Expiration Date Visits Requested Visits Authorized [id number] Closed Functional Restorative Program 03/25/2023 03/24/2024 52 52 Encounter Details Date Type Department Care Team (Late st Contact Info) Description 05/09/2023 8:00 AM EDT Office Visit Functional Taoist Program at [facility] [address] [place] [address] Gene Julien Jr., PT Lumbar spondylosis; Cluneal neuropathy; Lumbar foraminal stenosis; Radiculopathy of lumbar region; Radiculopathy of cervical region; Spondylosis of lumbar region without myelopathy [...] Therapy - Gene Julien , PT - 05/09/2023 8:00 AM EDT FRP Physical Therapy Note FRP Day 18 Protocol Subjective: Josselyn returns today for a scheduled follow up appointment with FRP and reports currentfunctional tolerances as listed below. Josselyn reported feeling stronger and less anxious about moving and feeling more confident. Objective: Title Endurance and Flexibility Test Results: Reported Tolerance (minutes) First Day of FRP: End of FRP: 1 Month Follow-up: 3 Month Follow-up (optional): Sittin 120 Standin 60 Walkin 30 Flexibility (degrees): Neck: First Day [...] breath (hands on rails) Short of Breath Sensation: Light touch intact B/L UE & LE. Reflexes Right Left Tricep normal normal Brachioradialis normal normal Patella normal normal Achilles normal normal AROM (degrees) shoulder flexion right 180, left 180. UE Strength Right Left Shoulder abduction 5/5 5/5 Shoulder ER 5/5 5/5 Elbow flexion 5/5 5/5 Elbow extension 5/5 5/5 Wrist ulnar deviation 5/5 5/5 Finger abduction 5/5 5/5 LE Strength Right Left Hip flexion 5/5 5/5 Knee extension 5/5 5/5 Dorsiflexion 5/5 5/5 Hallux extension 5/5 5/5 Plantarflexion 5/5 5/5 Neural tension screening: Seated straight leg raise right Negative, left Negative. Treatment Received: Refer to [facility] protocol for explanation of program/physical therapy details. 1. Therapeutic and Functional Exercise: See [facility] flow sheets for progression. Strengthening and conditioning designed per [facility] protocol was: (x) Completed ( ) Not completed 2. Home Exercise Program: Reviewed and modified current home exercise program. The HEP was: (x) Unchanged ( ) Modified 3. Neurological Assessment: (x) No change in status ( ) Change in status 4. Stretching Training Sessions: (x) Completed ( ) Not completed Evaluation of progress during FRP and discharge planning: Participation level was consistent and high. Self-Care Program Type of Exercise Specific recommendations Frequency Mindfulness/ Relaxation 3 minute breathing & Progressive Muscle Relaxation (LetsCram Timer Salvador -Willian Mayo) Deep Breathing (In [...] Step routine (mp3 in myDH) Warm Up Moran (mp3 in myDH) Elliptical / TM / [...] will cause lasting change. Assessment: Josselyn has progressed as planned; she has good understanding of her home exercise program. Josselyn has made significant progress overall, more notably with physical capacity, tolerance of positions, and lumbar and hip flexion. Her continued confidence and utilization of exercise will continue to demonstrate a reduction in symptoms in the future. We will follow-up in 1 week to discuss integration of routine and answer any questions she has after cessation of program. Plan: Continue per FRP protocol. Length of visit: Participated in program physical activity from 8:00 a.m. through 2:30 p.m. today. During that time, 15 minutes were spent to re-test physical performance measures and 30 were spent to treat and further develop individual self-care exercise guidelines. Care was provided by Gene Julien Jr. DPT and Louise Oleary PTA. documented in this encounter Plan of Treatment Upcoming Encounters Date Type Department Care Team (Late st Contact Info) Description 09/18/2024 10:30 AM EST Office Visit Hematology/Oncology at [address] [phone] Erica Yi APRN [address] [place] [address] DR MEDICAL ONCOLOGY [place], [place] [address] 09/18/2024 11:00 AM EST Infusion Hematology Oncology at [address] [phone] 10/01/2024 3:45 PM EST Office Visit Functional Taoist Program at [facility] [address] [place] [phone] Gene Julien Jr., PT 12/23/2024 8:00 AM EST Appointment XRay at [address] [place] [address] River Ochoa MD [address] [place] [address] 01/21/2025 1:00 PM EDT Office Visit Radiation Oncology at [address] [phone] Tory Salazar PA [facility] DR HEMATOLOGY [place] [address] documented as of this encounter Visit Diagnoses Diagnosis Lumbar spondylosis Lumbosacral spondylosis without myelopathy Cluneal neuropathy Lumbar foraminal stenosis Spinal stenosis, lumbar region, without neurogenic claudication Radiculopathy of lumbar region Thoracic or lumbosacral neuritis or radiculitis, unspecified Radiculopathy of cervical region Brachial neuritis or radiculitis nos Spondylosis of lumbar region without myelopathy or radiculopathy Lumbosacral spondylosis without myelopathy documented in this encounter Care Teams Business Records Manager Relationship Specialty Start Date End Date Kay Caldwell MD [address] [place] [address] [address] [place] [address] PCP - General Family Medicine 08/15/22 documented as of this encounter
--- OUTSIDE RECORDS SUMMARY | 2024-09-18 01:19 | XMS_ITS | Encounter Summary ---
Author Organization [facility] [place] [address] Care Team Providers Care Press Cutter Name Role Phone Kay Caldwell MD Primary Care Provider [phone] Reason for Visit * Consultation (Routine) - [...] HC ESTABLISHED PATIENT LEVEL 3 PRO FUNCTIONAL SCIENTOLOGY PROGRAM LECTURE, GROUP HC THERAPEUTIC ACTIVITY EA 15 MIN HC PHYSICAL THERAPY RE-EVALUATION EST PLAN CARE HC PHYSICAL PERFORMANCE TEST W REPORT 15 MIN Jazmín Santiago, HOSPITAL FELLOW [facility] [address] [facility] Frp [address] [place] [address] Referral ID Status Reason Start Date Expiration Date Visits Requested Visits Authorized [id number] Closed Functional Restorative Program 03/25/2023 03/24/2024 52 52 Encounter Details Date Type Department Care Team (Late st Contact Info) Description 04/25/2023 8:00 AM EDT Office Visit Functional Sabianist Program at [facility] [address] [place] [address] Gene Julien Jr., PT Lumbar [...] as of this encounter Progress Notes * Gene Julien , PT - 04/25/2023 8:00 AM EDT Functional Sabianist Program (Day 8) Physical Therapy Carrier Testing Personal Function 3 Month Goals Vocational: None Identified Recreational: Be able to resume luis class and exercise routine; Be able to walk for longer periods of time. Daily Living: Be able to stand for longer periods to cook a meal, Be able to do housework includingvacuuming; Be able to garden; Be able to lift and carry heavier groceries, laundry basket. Subjective: Ms. Garduno returns today for a scheduled follow up appointment with FRP. Josselyn reports feeling stronger and she is walking so much better. Josselyn stated she is nervous about returning home and would like to discuss return to home planning. Objective: Endurance and Flexibility Test Results: Reported Tolerance (minutes) First Day of FRP: Mid-Way of FRP: Sittin 120 Standin 60 Walkin 30 Flexibility (degrees): Neck: First Day of FRP: Mid-Way of FRP: Bending Forward: 60 70 Bending Back: 45 65 Turning Right: 45 65 Turning Left: 45 65 Tilting Right: 25 35 Tilting Left: 25 35 Low Back: First Day of FRP: Mid-Way of FRP: Bending Forward: 55 65 Bending Back: 10 35 Straight Leg Raise Right: 65 80 Straight Leg Raise Left: 65 85 Straight Leg Raise Pelvic: Treadmill First Day of FRP: Mid-Way of FRP: MET Level: Heart Rate: MET Level: Heart Rate: Treadmill Endurance: 7 132 6 Reason for Stopping (if applicable): Short of breath (hands on rails) Short of breath (less hands on rails) Sensation: Light touch intact B/L UE & LE. Reflexes Right Left Tricep normal normal Brachioradialis normal normal Patella normal normal Achilles normal normal AROM (degrees) shoulder flexion right 180, left 175. UE Strength Right Left Shoulder abduction 5/5 5/5 Shoulder ER 5/5 5/5 Elbow flexion 5/5 5/5 Elbow extension 5/5 5/5 Wrist ulnar deviation 5/5 5/5 Finger abduction 5/5 5/5 LE Strength Right Left Hip flexion 5/5 4/5 Knee extension 5/5 4/5 Dorsiflexion 5/5 4/5 Hallux extension 5/5 4/5 Plantarflexion 5/5 4/5 Neural tension screening: Seated straight leg raise right Negative, left Negative. Assessment: Josselyn is progressing as planned with quota based training. Her UE & LE strength are increasing leading to improving confidence with functional mobility. She is on track to meet her goals at this point with program finishing in two weeks. Plan: Return for follow up with FRP per protocol. Length of visit: Participated in program physical activity from 8:00 a.m. through 11:00 p.m. today.During that time, a total of 30 minutes was spent to develop, monitor, and progress individualized physical therapy strategies. documented in this encounter Plan of Treatment Upcoming Encounters Date Type Department Care Team (Late st Contact Info) Description 09/18/2024 10:30 AM EST Office Visit Hematology/Oncology at [address] [phone] Erica Yi APRN [address] [place] [address] MEDICAL ONCOLOGY [place], [place] [phone] 09/18/2024 11:00 AM EST Infusion Hematology Oncology at [address] [phone] 10/01/2024 3:45 PM EST Office Visit Functional Sabianist Program at [facility] [address] [place] [address] Gene Julien Jr., PT 12/23/2024 8:00 AM EST Appointment XRay at [address] [place] [phone] River Ochoa MD [address] [place] [address] 01/21/2025 1:00 PM EDT Office Visit Radiation Oncology at [address] [phone] Tory Salazar PA [facility] DR [place] [address] documented as of this encounter Visit Diagnoses [...] myelopathy documented in this encounter Care Teams Press Cutter Relationship Specialty Start Date End Date Kay Caldwell MD [address] [place] [address] [address] [place] [address] PCP - General Family Medicine 08/15/22 documented as of this encounter
--- OUTSIDE RECORDS SUMMARY | 2024-09-18 01:19 | XMS_ITS | Encounter Summary ---
Author Organization [facility] [place] [address] Care Team Providers Care Steam Fitter Name Role Phone Kay Caldwell MD Primary Care Provider [phone] Reason for Visit * Reason Comments Back Pain * Consultation (Routine) - Closed Specialty Diagnoses / Procedures Referred By Contac t Referred To Contact [facility] Diagnoses Spondylosis of lumbar region without myelopathy or radiculopathy Procedures SC GROUP THERAPEUTIC PROCEDURES SC GROUP THERAPEUTIC PROCEDURES HC OCCUPATIONAL THERAPY EVALUATION MODERATE COMPLEXITY PRO ESTABLISHED PATIENT LEVEL 4 HC ESTABLISHED PATIENT LEVEL 4 PRO ESTABLISHED PATIENT LEVEL 3 HC ESTABLISHED PATIENT LEVEL 3 PRO FUNCTIONAL BAPTISM PROGRAM LECTURE, GROUP HC THERAPEUTIC ACTIVITY EA 15 MIN HC PHYSICAL THERAPY RE-EVALUATION EST PLAN CARE HC PHYSICAL PERFORMANCE TEST W REPORT 15 MIN Jazmín Santiago, BRUNO [facility] [place] [address] [facility] Fr [address] [place] [address] Referral ID Status Reason Start Date Expiration Date Visits Requested Visits Authorized [id number] Closed Functional Restorative Program 03/25/2023 03/24/2024 52 52 Encounter Details Date Type Department Care Team (Late st Contact Info) Description 05/02/2023 11:00 AM EDT Office Visit Functional Taoism Program at [facility] [address] [place] [address] Ariana Brock, OT Lumbar spondylosis Social History Tobacco Use Types Packs/Day Years Used Date Smoking Tobacco: Former Smokeless Tobacco: Never Sex and Gender Information Value Date Recorded Sex Assigned at Not on file Gender Identity Not on file Sexual Orientation Not on file documented as of this encounter Miscellaneous Notes * Treatment - Therapy - Ariana Brock, OT - 05/02/2023 11:00 AM EDT [facility] Occupational Therapy Note [facility] Day 14 Protocol Subjective: Ms. Garduno returns today for a scheduled follow up appointment with [facility]. She reports feeling okay today, mostly her arms are sore. Objective: Refer to [facility] protocol for details and explanation of each activity. Ms. Garduno participated in the following activities: See individual flow sheets for weight progressions. Warm up and Strengthening/Cardio Routine: Exercises performed as a group of 6 [...] Exercise Ball (2 x 20 each) Prone Alternating Arm and Leg Raises Supine Lower Trunk Rotation Supine Crunches Supine Bridges Supine Total Abdominal Crunches (Pass [...] 2 sets to tolerance Cardio performed today: Elliptical x 10 min See [facility] flowsheet for details on time held and weights completed Patient participated in all exercises without verbal complaint Functional Conditioning: Increased resistance levels of functional conditioning exercises [...] minutes of mindfulness meditation activity focusing on Grounding. Participated in a 20 minute outdoor walk including 0.6 miles, up/down one flight of stairs, and 15 minutes of unguarded knapp bag toss [...] with all functional conditioning exercises as weights progress. Her arms are feeling more fatigue, which is normal and we reviewed some stretches to assist with symptom management. She actively participated with initiation of training components. They were supportive of the other members of the group throughout the session. Plan: Return for follow up with FRP per protocol. Continue training according to planned progressions towards functional recovery goals. Length of Treatment: Ms. Garduno participated in program activities from 8:00 a.m. through 3:00 p.m. today as part [...] AM EST Office Visit Hematology/Oncology at [address] [phone] Erica Yi APRN [address] [place] [address] DR MEDICAL ONCOLOGY [place], [place] [address] 09/18/2024 11:00 AM EST Infusion Hematology Oncology at [address] [phone] 10/01/2024 3:45 PM EST Office Visit Functional Taoism Program at [address] [place] [address] Gene Julien Jr., PT 12/23/2024 8:00 AM EST Appointment XRay at [address] [place] [address] River Ochoa MD [address] [place] [address] 01/21/2025 1:00 PM EDT Office Visit Radiation Oncology at [address] [phone] Tory Salazar PA [facility] DR H[place]AT[place] [address] documented as of this encounter Visit Diagnoses Diagnosis Lumbar spondylosis Lumbosacral spondylosis without myelopathy documented in this encounter Care Teams Steam Fitter Relationship Specialty Start Date End Date Kay Caldwell MD [address] [place] [address] [address] [place], [place] [address] PCP - General Family Medicine 08/15/22 documented as of this encounter
--- OUTSIDE RECORDS SUMMARY | 2024-09-18 01:19 | XMS_ITS | Encounter Summary ---
Author Organization [facility] [place] [address] Care Team Providers Care Hatchery Worker Name Role Phone Kay Caldwell MD Primary Care Provider [phone] Reason for Visit * Consultation (Routine) - [...] TEST W REPORT 15 MIN Jazmín Santiago GENERAL COUNSEL [facility] [place] [address] [facility] Fr [address] [place] [address] Referral ID Status Reason Start Date Expiration Date Visits Requested Visits Authorized [id number] Closed Functional Restorative Program 03/25/2023 03/24/2024 52 52 Encounter Details Date Type Department Care Team (Late st Contact Info) Description 04/29/2023 10:00 AM EDT Office Visit Functional Rastafarian Program at [facility] [address] [place] [address] Bailey Fox APRN [facility] [place] [address] Lumbar spondylosis; Cluneal neuropathy; Lumbar foraminal stenosis; Radiculopathy of lumbar region Social History Tobacco Use Types Packs/Day Years Used Date Smoking Tobacco: Former Smokeless Tobacco: Never Sex and Gender Information Value Date Recorded Sex Assigned at Not on file Gender Identity Not on file Sexual Orientation Not on file documented as of this encounter Progress Notes * Bailey Fox APRN - 04/29/2023 10:00 AM EDT [facility] a Service of [facility] Functional Rastafarian Program Neuroscience Education Series Patient Name: Josselyn Garduno Date: 04/25/2023 Topic: Chronic Pain & Sleep, Overview of Cognitive Behavioral Insomnia Treatment 60 minute Health and Behavior Intervention Today's group focused on teaching patients about the importance of improving sleep in order to better manage and cope with pain. Discussion included education about the causes of poor sleep and insomnia, the bidirectional effect between sleep and pain, and reviewing skills related to improved sleepquantity and quality. Basic sleep drive, architecture, and structure were reviewed, and specific recommendations made for improving sleep. The rationale and process of CBT-I was reviewed and group encouraged to focus on improving sleep as cao tool for managing pain and mood. The group was encouraged to ask questions throughout and were provided handouts of the topic covered. Josselyn appears to be benefiting from this series of pain education session as evidenced by brighteraffect, appearance of improved mood, greater participation, and observed reduction in pain behaviors. Diagnosis: Chronic pain documented in this encounter Plan of Treatment Upcoming Encounters Date Type Department Care Team (Late st Contact Info) Description 09/18/2024 10:30 AM EST Office Visit Hematology/Oncology at [address] [phone] Erica Yi APRN [address] [place] [address] MEDICAL ONCOLOGY [place], [place] [address] 09/18/2024 11:00 AM EST Infusion Hematology Oncology at [address] [phone] 10/01/2024 3:45 PM EST Office Visit Functional Rastafarian Program at [address] [place] [address] Gene Julien Jr., PT 12/23/2024 8:00 AM EST Appointment XRay at [address] [place] [address] River Ochoa MD [address] [place] [address] 01/21/2025 1:00 PM EDT Office Visit Radiation Oncology at [address] [phone] Tory Salazar PA [facility] DR HEMATOLOGY [place] [address] documented as of this encounter Visit Diagnoses Diagnosis Lumbar spondylosis Lumbosacral spondylosis without myelopathy Cluneal neuropathy Lumbar foraminal stenosis Spinal stenosis, lumbar region, without neurogenic claudication Radiculopathy of lumbar region Thoracic or lumbosacral neuritis or radiculitis, unspecified documented in this encounter Care Teams Hatchery Worker Relationship Specialty Start Date End Date Kay Caldwell MD [address] [place] [address] [address] [place] [address] PCP - General Family Medicine 08/15/22 documented as of this encounter
--- OUTSIDE RECORDS SUMMARY | 2024-09-18 01:19 | XMS_ITS | Encounter Summary ---
Author Organization [facility] [place] [address] Care Team Providers Care Petroleum Inspector Supervisor Name Role Phone Kay Caldwell MD Primary Care Provider [phone] Reason for Visit * Consultation (Routine) - Closed Specialty Diagnoses / Procedures Referred By Contac t Referred To [facility] Diagnoses Spondylosis of lumbar region without myelopathy or radiculopathy Procedures KS GROUP THERAPEUTIC PROCEDURES KS GROUP THERAPEUTIC PROCEDURES HC OCCUPATIONAL THERAPY EVALUATION MODERATE COMPLEXITY PRO ESTABLISHED PATIENT LEVEL 4 HC ESTABLISHED PATIENT LEVEL 4 PRO ESTABLISHED PATIENT LEVEL 3 HC ESTABLISHED PATIENT LEVEL 3 PRO FUNCTIONAL DENOMINATIONAL PROGRAM LECTURE, GROUP HC THERAPEUTIC ACTIVITY EA 15 MIN HC PHYSICAL THERAPY RE-EVALUATION EST PLAN CARE HC PHYSICAL PERFORMANCE TEST W REPORT 15 MIN Jazmín Santiago, RESPIRATORY CLINICIAN [facility] [address] [facility] Frp [address] [place] [address] Referral ID Status Reason Start Date Expiration Date Visits Requested Visits Authorized [id number] Closed Functional Restorative Program 03/25/2023 03/24/2024 52 52 Encounter Details Date Type Department Care Team (Late st Contact Info) Description 04/26/2023 8:00 AM EDT Office Visit Functional Gnosticism Program at [facility] [address] [place] [address] Gene Julien Jr., PT Lumbar [...] Therapy - Gene Julien JrDerrell, PT - 04/26/2023 8:00 AM EDT FRP Physical Therapy Note [facility] Day 10 Protocol Subjective: Josselyn returns today for a scheduled follow up appointment with [facility]. She reports feeling very sore today. By the mid-nini she reported that her hip was feeling better. Objectives and Treatment Received Exercises performed as [...] TM x 10 min x L3-4 See P flowsheet for details on time held and weights completed Patient participated in all exercises without verbal complaint Assessment: Josselyn returns for follow up visit. She was able to progress weights with increasing independence and maintained form with intermittent cues to avoid compensation. She actively participated as a member of the group throughout session. Plan: Return for follow up with [facility] per protocol. Length of visit: Participated in [...] 10:30 AM EST Office Visit Hematology/Oncology at [address] [phone] Erica Yi [address] MEDICAL ONCOLOGY [place], [place] [phone] 09/18/2024 11:00 AM EST Infusion Hematology Oncology at [address] [phone] 10/01/2024 3:45 PM EST Office Visit Functional Gnosticism Program at [address] [place] [address] Gene Julien Jr., PT 12/23/2024 8:00 AM EST Appointment XRay at [address] [place] [phone] River Ochoa MD [address] [place] [address] 01/21/2025 1:00 PM EDT Office Visit Radiation Oncology at [address] [phone] Tory Salazar PA [facility] [place] [address] documented as of this encounter Visit Diagnoses [...] myelopathy documented in this encounter Care Teams Petroleum Inspector Supervisor Relationship Specialty Start Date End Date Kay Caldwell MD [address] [place] [address] [place] [address] PCP - General Family Medicine 08/15/22 documented as of this encounter
--- OUTSIDE RECORDS SUMMARY | 2024-09-18 01:19 | XMS_ITS | Encounter Summary ---
Author Organization [facility] [place] [address] Care Team Providers Care Assistant Gm Of Content & Delivery Name Role Phone Kay Caldwell MD Primary Care Provider [phone] [phone] Encounter Details Date Type Department Care Team (Latest Contact Info) Description 2023 Travel Social History Tobacco Use Types Packs/Day [...] AM EST Office Visit Hematology/Oncology at [address] [phone] Erica Yi APRN [address] [place] [address] DR MEDICAL ONCOLOGY [place], [place] [address] 09/18/2024 11:00 AM EST Infusion Hematology Oncology at [address] [phone] 10/01/2024 3:45 PM EST Office Visit Functional Hoahaoism Program at [facility] [address] [place] [address] Gene Julien Jr., PT 12/23/2024 8:00 AM EST Appointment XRay at [facility] [address] River Ochoa MD [address] [place] [address] 01/21/2025 1:00 PM EDT Office Visit Radiation Oncology at [address] [phone] Tory Salazar PA [facility] DR HEMATOLOGY [place] [address] documented as of this encounter Visit Diagnoses Not on filedocumented in this encounter Care Teams Assistant Gm Of Content & Delivery Relationship Specialty Start Date End Date Kay Caldwell MD [address] [place] [address] [address] [place] [address] PCP - General Family Medicine 08/15/22 documented as of this encounter
--- OUTSIDE RECORDS SUMMARY | 2024-09-18 01:19 | XMS_ITS | Encounter Summary ---
Author Organization [facility] [place] [address] Care Team Providers Care Slot Machine Key Person Name Role Phone Kay Caldwell MD Primary Care Provider [phone] Encounter Details Date Type Department Care Team (Latest Contact Info) Description 04/30/2023 Travel Social History Tobacco Use Types Packs/Day [...] AM EST Office Visit Hematology/Oncology at [address] [phone] Erica Yi APRN [address] [place] [address] DR MEDICAL ONCOLOGY [place], [place] [address] 09/18/2024 11:00 AM EST Infusion Hematology Oncology at [address] [phone] 10/01/2024 3:45 PM EST Office Visit Functional Faith Program at [facility] [address] [place] [address] Gene Julien Jr., PT 12/23/2024 8:00 AM EST Appointment XRay at [facility] [address] River Ochoa MD [address] [place] [address] 01/21/2025 1:00 PM EDT Office Visit Radiation Oncology at [address] [phone] Tory Salazar PA [facility] DR [place] [address] documented as of this encounter Visit Diagnoses Not on filedocumented in this encounter Care Teams Slot Machine Key Person Relationship Specialty Start Date End Date Kay Caldwell MD [address] [place] [address] [address] [place] [address] PCP - General Family Medicine 08/15/22 documented as of this encounter
--- OUTSIDE RECORDS SUMMARY | 2024-09-18 01:19 | XMS_ITS | Encounter Summary ---
Author Organization [facility] [place] [address] Care Team Providers Care Academic Hospitalist Name Role Phone Kay Caldwell MD Primary Care Provider [phone] Reason for Visit * Consultation (Routine) - [...] HC ESTABLISHED PATIENT LEVEL 3 PRO FUNCTIONAL SABIANISM PROGRAM LECTURE, GROUP HC THERAPEUTIC ACTIVITY EA 15 MIN HC PHYSICAL THERAPY RE-EVALUATION EST PLAN CARE HC PHYSICAL PERFORMANCE TEST W REPORT 15 MIN Jazmín Santiago APRN [facility] [place] [address] [facility] Fr [address] [place] [address] Referral ID Status Reason Start Date Expiration Date Visits Requested Visits Authorized [id number] Closed Functional Restorative Program 03/25/2023 03/24/2024 52 52 Encounter Details Date Type Department Care Team (Late st Contact Info) Description 04/26/2023 10:00 AM EDT Office Visit Functional Scientologist Program at [facility] [address] [place] [address] Jazmín Santiago APRN [facility] [place] [address] Lumbar spondylosis Social History Tobacco Use Types Packs/Day Years Used Date Smoking Tobacco: Former Smokeless Tobacco: Never Sex and Gender Information Value Date Recorded Sex Assigned at Not on file Gender Identity Not on file Sexual Orientation Not on file documented as of this encounter Progress Notes * Jazmín Santiago APRN - 04/26/2023 10:00 AM EDT CHRONIC PAIN AND THE NERVOUS SYSTEM LECTURE. This one hour lecture begins with a review of the patho-anatomic model of pain transmission and reviews basic neuro anatomy . The relationship between pain and cognitive states is reviewed. As is the concept of central sensitization. A discussion regarding coping skills such as meditation, mindfulness and cognitive restructuring is discussed neuroscience Time Spent:45 MINUTES documented in this encounter Plan of Treatment Upcoming Encounters Date Type Department Care Team (Late st Contact Info) Description 09/18/2024 10:30 AM EST Office Visit Hematology/Oncology at [address] [phone] Erica Yi APRN [address] [place] [address] DR MEDICAL ONCOLOGY [place], [place] [address] 09/18/2024 11:00 AM EST Infusion Hematology Oncology at [address] [phone] 10/01/2024 3:45 PM EST Office Visit Functional Scientologist Program at [place] [address] [address] [place] [address] Gene Julien Jr., PT 12/23/2024 8:00 AM EST Appointment XRay at [address] [place] [address] River Ochoa MD [address] [place] [address] 01/21/2025 1:00 PM EDT Office Visit Radiation Oncology at [address] [phone] Tory Salazar PA [facility] [place] [address] documented as of this encounter Visit Diagnoses Diagnosis Lumbar spondylosis Lumbosacral spondylosis without myelopathy documented in this encounter Care Teams Academic Hospitalist Relationship Specialty Start Date End Date Kay Caldwell MD [address] [place] [address] [address] [place] [address] PCP - General Family Medicine 08/15/22 documented as of this encounter
--- OUTSIDE RECORDS SUMMARY | 2024-09-18 01:19 | XMS_ITS | Encounter Summary ---
Author Organization [facility] [place] [address] Care Team Providers Care Lithopone Mill Worker Name Role Phone Kay Caldwell MD Primary Care Provider [phone] Reason for Visit * Reason Comments Back [...] HC ESTABLISHED PATIENT LEVEL 3 PRO FUNCTIONAL ISLAM PROGRAM LECTURE, GROUP HC THERAPEUTIC ACTIVITY EA 15 MIN HC PHYSICAL THERAPY RE-EVALUATION EST PLAN CARE HC PHYSICAL PERFORMANCE TEST W REPORT 15 MIN Jazmín Santiago, [facility] [place] [address] [facility] Fr [address] [place] [address] Referral ID Status Reason Start Date Expiration Date Visits Requested Visits Authorized [id number] Closed Functional Restorative Program 03/25/2023 03/24/2024 52 52 Encounter Details Date Type Department Care Team (Late st Contact Info) Description 04/30/2023 11:00 AM EDT Office Visit Functional Religious Program at [facility] [address] [place] [address] Ariana Brock, OT Lumbar spondylosis Social History Tobacco Use Types Packs/Day Years Used Date Smoking Tobacco: Former Smokeless Tobacco: Never Sex and Gender Information Value Date Recorded Sex Assigned at Not on file Gender Identity Not on file Sexual Orientation Not on file documented as of this encounter Miscellaneous Notes * Treatment - Therapy - Ariana Brock, OT - 04/30/2023 11:00 AM EDT P Occupational Therapy Note [facility] Day 12 Protocol Subjective: Ms. Garduno returns today for a scheduled follow up appointment with [facility]. She reports overall feeling okay, just some soreness. Objective: Refer to [facility] protocol for details and explanation [...] Twist x20 reps - Wall Clock - x8 reps Functional Crate Lifting: - Floor to [...] = 1 x 5 reps Instructed in one three minute breathing practice. Participated in a 20 minute outdoor walk including 0.6 miles and incorporation of silent meditation, and 20 minutes of unguarded beach ball volleyball activity and card game activity. Participated in an introduction to self-care planning/home exercise program for her to continue progressing her functional capacities after discharge. Assigned homework for her to begin thinking about her daily schedule and when and where she will plan to integrate the four components of the self-care program (stretching, cardio, strengthening and mindfulness) into her daily schedule post discharge. Please see goals in initial OT evaluation [...] form with all functional conditioning exercises. She continues to do well with incorporation of counteracting stretches despite fatigue. She actively participated with initiation of training components. They were supportive of the other members of the group throughout the session. Plan: Return for follow up with FRP per protocol. Continue training according to planned progressions towards functional recovery goals. Length of Treatment: Ms. Garduno participated in program activities from 11:00 a.m. through 2:45 p.m. today as part of group intervention [...] AM EST Office Visit Hematology/Oncology at [address] [phone] Erica Yi APRN [address] [place] [address] [place] [address] 09/18/2024 11:00 AM EST Infusion Hematology Oncology at [address] [phone] 10/01/2024 3:45 PM EST Office Visit Functional Religious Program at [place] [address] [place] [address] Gene Julien Jr., PT 12/23/2024 8:00 AM EST Appointment XRay at [address] [place] [address] River Ochoa MD [address] [place] [address] 01/21/2025 1:00 PM EDT Office Visit Radiation Oncology at [address] [phone] Tory Salazar PA [facility] DR HEMATOLOGY [place] [address] documented as of this encounter Visit Diagnoses Diagnosis Lumbar spondylosis Lumbosacral spondylosis without myelopathy documented in this encounter Care Teams Lithopone Mill Worker Relationship Specialty Start Date End Date Kay Caldwell MD [address] [place] [address] [address] [place] [address] PCP - General Family Medicine 08/15/22 documented as of this encounter
--- OUTSIDE RECORDS SUMMARY | 2024-09-18 01:19 | XMS_ITS | Encounter Summary ---
Author Organization [facility] [place] [address] Care Team Providers Care Bilingual Speech Therapist Name Role Phone Kay Caldwell MD Primary Care Provider [phone] Encounter Details Date Type Department Care Team (Latest Contact Info) Description 04/24/2023 Travel Social History Tobacco Use Types Packs/Day [...] AM EST Office Visit Hematology/Oncology at [address] [phone] Erica Yi APRN [address] [place] [address] DR MEDICAL ONCOLOGY [place], [place] [address] 09/18/2024 11:00 AM EST Infusion Hematology Oncology at [address] [phone] 10/01/2024 3:45 PM EST Office Visit Functional Sabianism Program at [facility] [address] [place] [address] Gene Julien Jr., PT 12/23/2024 8:00 AM EST Appointment XRay at [facility] [place] [address] River Ochoa MD [address] [place] [address] 01/21/2025 1:00 PM EDT Office Visit Radiation Oncology at [address] [phone] Tory Salazar PA [facility] DR HEMATOLOGY [place] [address] documented as of this encounter Visit Diagnoses Not on filedocumented in this encounter Care Teams Bilingual Speech Therapist Relationship Specialty Start Date End Date Kay Caldwell MD [address] [place] [address] [address] [place] [address] PCP - General Family Medicine 08/15/22 documented as of this encounter
--- OUTSIDE RECORDS SUMMARY | 2024-09-18 01:19 | XMS_ITS | Encounter Summary ---
Author Organization [facility] [place] [address] Care Team Providers Care Eligibility Services Representative Name Role Phone Kay Caldwell MD Primary Care Provider [phone] Encounter Details Date Type Department Care Team (Latest Contact Info) Description 05/02/2023 Travel Social History Tobacco Use Types Packs/Day [...] 10:30 AM EST Office Visit Hematology/Oncology at [address] [phone] Erica Yi APRN [address] [place] [address] DR MEDICAL ONCOLOGY [place], [place] [address] 09/18/2024 11:00 AM EST Infusion Hematology Oncology at [address] [phone] 10/01/2024 3:45 PM EST Office Visit Functional Protestant Program at [facility] [address] [place] [address] Gene Julien Jr., PT 12/23/2024 8:00 AM EST Appointment XRay at [facility] [place] [address] River Ochoa MD [address] [place] [address] 01/21/2025 1:00 PM EDT Office Visit Radiation Oncology at [address] [phone] Tory Salazar PA [facility] DR [place] [address] documented as of this encounter Visit Diagnoses Not on filedocumented in this encounter Care Teams Eligibility Services Representative Relationship Specialty Start Date End Date Kay Caldwell MD [address] [place] [address] [place] [address] PCP - General Family Medicine 08/15/22 documented as of this encounter
--- OUTSIDE RECORDS SUMMARY | 2024-09-18 01:20 | XMS_ITS | Encounter Summary ---
Author Organization [facility] [place] [address] Care Team Providers Care Clinical Research Physician Name Role Phone Kay Caldwell MD Primary Care Provider [phone] Reason for Visit * Consultation (Routine) - [...] TEST W REPORT 15 MIN Jazmín Santiago, DRYING TUMBLER OPERATOR [facility] [place] [address] Htr Frp [address] [place] [address] Referral ID Status Reason Start Date Expiration Date Visits Requested Visits Authorized [id number] Closed Functional Restorative Program 03/25/2023 03/24/2024 52 52 Encounter Details Date Type Department Care Team (Late st Contact Info) Description 04/18/2023 8:00 AM EDT Office Visit Functional Christianity Program at [facility] [address] [place] [address] Gene Julien Jr., PT Spondylosis of lumbar region without myelopathy or radiculopathy; Lumbar foraminal stenosis Social History Tobacco Use Types Packs/Day Years Used Date Smoking Tobacco: Former Smokeless Tobacco: Never Sex and Gender Information Value Date Recorded Sex Assigned at Not on file Gender Identity Not on file Sexual Orientation Not on file documented as of this encounter Miscellaneous Notes * Treatment - Therapy - Gene Julien JrDerrell, PT - 04/18/2023 8:00 AM EDT FRP Physical Therapy Note FRP Day 4 Warm Up Exercises Protocol Subjective: Josselyn Garduno returns today for a scheduled follow up appointment with FRP; Josselyn reports feeling very sore & stiff. Objective: Treatment Received: Group of 4 Initial Instruction in form with modifications as necessary for: 30 Minutes Standing Warm Up Exercises High March Heel-kick March Squat Step Back Toe Touch Knees to Hands B Forward Lunges Side Lunges 30 Minutes Supine, Sidelying, Prone Mat Exercises (2 x 10 each) Lower trunk rotation Straight Leg Raises Curl Up/Crunch Bridge Lower Abdominal Heel Taps B Sidelying Hip Abduction Prone Scap [...] back extensions 2 sets to tolerance Cardio orientation performed on treadmill, elliptical, and upright bike See FRP flowsheet for details on time held and weights completed Patient participated in all exercises, with some challenges with positioning with low seats. Assessment: Josselyn Garduno returns for follow up visit. She was able to progress weights appropriately, while successfully maintaining form. Cues were needed intermittently for maintenance of posture during exercise and avoid compensation. Fatigue is most apparent issue today as she completes first back to back full days of the FRP which is to be expected. She actively participated as a memberof the group throughout session. Plan: Return for follow up with FRP per protocol. Personal Function 3 Month Goals [...] AM EST Office Visit Hematology/Oncology at [address] [phone] [address] Yi [address] MEDICAL ONCOLOGY [place], [place] [phone] 09/18/2024 11:00 AM EST Infusion Hematology Oncology at [address] [phone] 10/01/2024 3:45 PM EST Office Visit Functional Christianity Program at [address] [place] [address] Gene Julien Jr., PT 12/23/2024 8:00 AM EST Appointment XRay at [address] [place] [address] River Ochoa MD [address] [place] [address] 01/21/2025 1:00 PM EDT Office Visit Radiation Oncology at [address] [phone] Tory Salazar PA [facility] HEMATOLOGY [place] [address] documented as of this encounter Visit Diagnoses Diagnosis Spondylosis of lumbar region without myelopathy or radiculopathy Lumbosacral spondylosis without myelopathy Lumbar foraminal stenosis Spinal stenosis, lumbar region, without neurogenic claudication documented in this encounter Care Teams Clinical Research Physician Relationship Specialty Start Date End Date Kay Caldwell MD [address] [place] [address] [address] [place], [place] [address] PCP - General Family Medicine 08/15/22 documented as of this encounter
--- OUTSIDE RECORDS SUMMARY | 2024-09-18 01:20 | XMS_ITS | Encounter Summary ---
[place] [address] Care Team Providers Care Bell Captain Name Role Phone Kay Caldwell MD Primary Care Provider [phone] Encounter Details Date Type Department Care Team (Late st Contact Info) Description 03/29/2023 Notes Only [place] [phone] Arielle Freeman Social History Tobacco Use Types Packs/Day Years Used Date Smoking Tobacco: Former Smokeless Tobacco: Never Sex and Gender Information Value Date Recorded Sex Assigned at Not on file Gender Identity Not on file Sexual Orientation Not on file documented as of this encounter Progress Notes * Arielle Freeman - 03/29/2023 11:29 AM EDT Mailed Invitation Packet for the Functional Mandaen Program to the patient Program: April 15 - May 10 Arrival Time - TBD once patient has called to confirm Location: [address] Confirmation request date - 04/09/2023 documented in this encounter Plan of Treatment Upcoming Encounters Date Type Department Care Team (Late st Contact Info) Description 09/18/2024 10:30 AM EST Office Visit Hematology/Oncology at [address] [phone] Erica Yi APRN [address] [place] [address] MEDICAL ONCOLOGY [place], [place] [id number] 09/18/2024 11:00 AM EST Infusion Hematology Oncology at [address] [phone] 10/01/2024 3:45 PM EST Office Visit Functional Mandaen Program at [facility] [address] [place] [address] Gene Julien Jr., PT 12/23/2024 8:00 AM EST Appointment XRay at [address] [place] [address] River Ochoa MD [address] [place], [place] [address] 01/21/2025 1:00 PM EDT Office Visit Radiation Oncology at [address] [phone] Tory Salazar PA [facility] DR HEMATOLOGY [place] [address] documented as of this encounter Visit Diagnoses Not on filedocumented in this encounter Care Teams Bell Captain Relationship Specialty Start Date End Date Kay Caldwell MD [address] [place] [address] [address] [place], [place] [address] PCP - General Family Medicine 08/15/22 documented as of this encounter
--- OUTSIDE RECORDS SUMMARY | 2024-09-18 01:20 | XMS_ITS | Encounter Summary ---
Author Organization [facility] [address] Care Team Providers Care Inspector Bicycle Name Role Phone Kay Caldwell MD Primary Care Provider [phone] Encounter Details Date Type Department Care Team (Late st Contact Info) Description 12/14/2022 10:45 AM EST Office Visit [place] [address] Jazmín Santiago, CONSOLE MANAGER [facility] [place] [address] Lumbar foraminal stenosis Social History Tobacco Use Types Packs/Day Years Used Date Smoking Tobacco: Former Smokeless Tobacco: Never Sex and Gender Information Value Date Recorded Sex Assigned at Not on file Gender Identity Not on file Sexual Orientation Not on file documented as of this encounter Last Filed Vital Signs Vital Sign Reading Time Taken Comments Blood Pressure 124/51 12/14/2022 10:32 AM EST Pulse 70 12/14/2022 10:32 AM EST Temperature - - Respiratory Rate - - Oxygen Saturation 100% 12/14/2022 10:32 AM EST Inhaled Oxygen Concentration - - Weight - - Height - - Body Mass Index - - documented in this encounter Progress Notes * Jazmín Santiago, BRUNO - 12/14/2022 10:45 AM EST [facility] TELE-HEALTH FOLLOW UP Date of Consultation: December 14, 2022 Referring Provider: Kay Caldwell Reason for request of consultation: Chief Complaint: Right sided pain , hurts Travels to abdomen History of Present Illness: Ms. Garduno is a 77 y.o. year-old female who [place] the [place] during [place]. She had a cluneal nerve injection done [...] up with Josselyn. She drove down from [facility] with her . She had a [...] She has been doing physical therapy at [facility] but has not had any spine, Ángel PT. Updated interval history 12/14/2022: Josselyn is here for follow-up with her . She had a procedure done with Dr. Davis on 12/11. This was a lumbar medial branch block. She reports that she did not have a good response with this andactually felt worse afterwards. However yesterday she [facility], Giovanna Moncada and Giovanna has been doing lateral glides with her and she has had a 50% reduction in her pain. The pain usually starts in her low back and wraps around to the right abdomen. She has had various injections and none of that has been helpful but she has had good relief with Lindy. She and I have also discussed a trial of low-dose naltrexone after her asked if there was anything else that might be helpful for her. She is interested in trialing this as well PAIN ASSESSMENT: Description: Right flank pain to abdomen, dull ache Other associated symptoms:not associated Left posterior tingling to ankle Alleviating factors: staying still Aggravating factors:movement Lateral bending , forward bending, twisting Pain today:7-8 Best in past week:3-4/10 Worst in past week: 8/10 No flowsheet data found. 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 venlafaxine (Effexor) 25 mg Tablet ??? multivitamin (THERAGRAN) Tablet Take 1 tablet by mouth daily. ??? ergocalciferol, vitamin D2, (VITAMIN D ORAL) Take by mouth. ??? HERBAL DRUGS ORAL Take by mouth. Richardson Wort and other ingredients (pt unsure) ??? ACETAMINOPHEN ORAL Take 2 tablets by mouth as needed. ??? lisinopriL (Zestril) 10 mg Tablet ??? omeprazole (PriLOSEC) 20 mg Capsule, Delayed Release(E.C.) ??? simvastatin (Zocor) 20 mg Tablet nightly. Allergies & Adverse Reactions: Opioids - morphine analogues Problem List: Patient Active Problem List Diagnosis Code ??? 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 Spondylosis of lumbar region without myelopathy or radiculopathy M47.816 Social History: Social History Socioeconomic History ??? Marital status: Spouse name: Not on file ??? Number of children: Not on file ??? Years of education: Not on file ??? Highest education level: Not on file Occupational History ??? Not on file Tobacco Use ??? Smoking status: Former ??? Smokeless tobacco: Never Vaping Use ??? Vaping Use: Never used Substance and Sexual Activity ??? Alcohol use: Not on file ??? Drug use: Not on file ??? Sexual activity: Not on file Other Topics Concern ??? Not on file Social History Narrative ??? Not on file Social Determinants of Health Financial Resource Strain: Not on file Food Insecurity: Not on file Transportation Needs: Not on file Physical Activity: Not on file Housing Stability: Not on file Family History No family history on file. Past Medical History: No past medical history on file. Past Surgical History: Past Surgical History: Procedure Laterality Date ??? PRO INJ, FORAMEN, L/S, 1 LEVEL Right 10/09/2022 INJECTION, ANESTHETIC AGENT AND/OR STEROID, TRANSFORAMINAL EPIDURAL, LUMBAR OR SACRAL, SINGLE LEVEL(WRVU 1.9) performed by Cosmo Blanco MD at [facility] ??? PRO INJ, FORAMEN, L/S, 1 LEVEL Right 11/09/2022 INJECTION, ANESTHETIC AGENT AND/OR STEROID, TRANSFORAMINAL EPIDURAL, LUMBAR OR SACRAL, SINGLE LEVEL(WRVU 1.9) performed by Jose Tai MD at [facility] ??? PRO INJ, FORAMEN, L/S, ADDL LEVELS Right 10/09/2022 INJECTION, ANESTHETIC AGENT AND/OR STEROID, TRANSFORAMINAL EPIDURAL, LUMBAR OR SACRAL, EACH ADDITIONAL LEVEL (WRVU 1) performed by Cosmo Blanco MD at [facility] ??? PRO INJECTION DX/THER SBST INTRLMNR LMBR/SAC W/IMG GDN Right 11/21/2022 INJECTION, EPIDURAL, LUMBAR OR SACRAL (CAUDAL), WITH IMAGING GUIDANCE (WRVU 1.8) performed by Jose Tai MD at [facility] Review of Systems: Denies fever, chills, weight [...] previous visit Assessment: Ms. Garduno is a 77 y.o. year-old female who presents to the [facility] accompanied by her . She had a procedure recently with Dr. Davis. She is going to continue with the physical therapy. In addition I have also given her prescription for low-dose naltrexone Low dose naltrexone may be an option for him. When used at low doses, naltrexone functions as a microglial attenuating therapy that decreases inflammation within the central nervous system and improves chronic pain without causing habituation and dependence. -Leandro Mcdermott et al. The use of low-dose naltrexone (LDN) as a novel anti- inflammatory treatment for chronic pain. Clin Rheumatol (2014) 33:451-459 -Leandro Mcdermott, et al. Fibromyalgia symptoms are reduced by low dose naltrexone: a brand designer study. Pain Medicine (200() 10:663-672 Instructions for commencing low dose naltrexone therapy are the following. Naltrexone 1.5 mg capsule compounding by [facility] in [place], [place] fax # [phone] Take one capsule QD for 7 days. If pain relief is unsatisfactory then increase to 2 capsules per day. After 14 days if pain relief is inadequate then increase to 3 capsules per day. ?? Low-Dose Naltrexone (LDN)-Review of Therapeutic Utilization. ?? Abida Davidson. ?? Med Sci (Basel). 2018 Aug 01;6(4). pii: E82. doi: 10.3390/vrpzpq7455737. Review. ? Low dose naltrexone is a compounded medication that must be made at this low dosage per capsule by a compounding pharmacy. As a compounded medication is unlikely to be covered by insurance. The compounding pharmacy will contact you with a cortez and will ask how you would like to pay. They will then ship the medication to your address. ? She is instructed on its use and 2 prescriptions were sent 1 for a titrating dose and 1 for maintenance dose. She is instructed to call with questions or concerns. I am going to follow-up with her in4 months. Thank you Dr. Caldwell for allowing my participation in Josselyn Garduno's care. Jazmín Santiago MS, CIRCULATION MANAGER-BC, CONSOLE MANAGER Nurse practitioner Pain management [facility] documented in this encounter Plan of Treatment Upcoming Encounters Date Type Department Care Team (Late st Contact Info) Description 09/18/2024 10:30 AM EST Office Visit Hematology/Oncology at [address] [phone] Erica Yi APRN [address] [place] [address] MEDICAL ONCOLOGY [place] [phone] 09/18/2024 11:00 AM EST Infusion Hematology Oncology at [address] [phone] 10/01/2024 3:45 PM EST Office Visit Functional Pentecostalism Program at [address] [place] [address] Gene Julien Jr., PT 12/23/2024 8:00 AM EST Appointment XRay at [address] [place] [address] River Ochoa MD [address] [place], [place] [address] 01/21/2025 1:00 PM EDT Office Visit Radiation Oncology at [address] [phone] Tory Salazar PA [facility] [place] [address] documented as of this encounter Visit Diagnoses Diagnosis Lumbar foraminal stenosis Spinal stenosis, lumbar region, without neurogenic claudication documented in this encounter Care Teams Inspector Bicycle Relationship Specialty Start Date End Date Kay Caldwell MD [address] [place] [address] [place] [address] PCP - General Family Medicine 08/15/22 documented as of this encounter
--- OUTSIDE RECORDS SUMMARY | 2024-09-18 01:20 | XMS_ITS | Encounter Summary ---
Author Organization [facility] [place] [address] Care Team Providers Care Mangle Operator Garments Name Role Phone Kay Caldwell MD Primary Care Provider [phone] Reason for Visit * Consultation (Routine) - [...] HC ESTABLISHED PATIENT LEVEL 3 PRO FUNCTIONAL MANDAEISM PROGRAM LECTURE, GROUP HC THERAPEUTIC ACTIVITY EA 15 MIN HC PHYSICAL THERAPY RE-EVALUATION EST PLAN CARE HC PHYSICAL PERFORMANCE TEST W REPORT 15 MIN Jazmín Santiago, BACK SHOE CUTTER [facility] [place] [address] Htr Frp [address] [place] [address] Referral ID Status Reason Start Date Expiration Date Visits Requested Visits Authorized [id number] Closed Functional Restorative Program 03/25/2023 03/24/2024 52 52 Encounter Details Date Type Department Care Team (Late st Contact Info) Description 04/17/2023 8:00 AM EDT Office Visit Functional Protestant Program at [facility] [address] [place] [address] Gene Julien Jr., PT Spondylosis [...] Therapy - Gene Julien JrDerrell, PT - 04/17/2023 8:00 AM EDT FRP Physical Therapy Note FRP Day 3 Warm Up Exercises Protocol Subjective: Josselyn Garduno returns today for a scheduled follow up appointment with FRP; Josselyn reports feeling sore, but not as much as she would have thought. Objective: Treatment Received: Group of 6 Initial Instruction in form with modifications as [...] on treadmill, elliptical, and upright bike See P flowsheet for details on time held and weights completed Patient participated in all exercises, with some challenges with positioning with low seats. Assessment: Josselyn Garduno returns for follow up visit. They were able to establish challenging,but successful performance with all weights while maintaining form. Cues were needed intermittentlyfor maintenance of form. Challenges they demonstrate with low seats likely due to reduced strength and flexibility in the lower extremity, hips, and back. She actively participated as a member of thegroup throughout session Plan: Return for follow up with FRP [...] AM EST Office Visit Hematology/Oncology at [address] [phone] [address]Y [address] MEDICAL ONCOLOGY [place], [place] [phone] 09/18/2024 11:00 AM EST Infusion Hematology Oncology at [address] [phone] 10/01/2024 3:45 PM EST Office Visit Functional Protestant Program at [address] [place] [address] Gene Julien Jr., PT 12/23/2024 8:00 AM EST Appointment XRay at [address] [place] [phone] River Ochoa MD [address] [place] [address] 01/21/2025 1:00 PM EDT Office Visit Radiation Oncology at [address] [phone] Tory Salazar PA [facility] HEMATOLOGY [place] [address] documented as of this encounter Visit Diagnoses Diagnosis Spondylosis of lumbar region without myelopathy or radiculopathy Lumbosacral spondylosis without myelopathy Lumbar foraminal stenosis Spinal stenosis, lumbar region, without neurogenic claudication documented in this encounter Care Teams Mangle Operator Garments Relationship Specialty Start Date End Date Kay Caldwell MD [address] [place] [address] [place] [address] PCP - General Family Medicine 08/15/22 documented as of this encounter
--- OUTSIDE RECORDS SUMMARY | 2024-09-18 01:20 | XMS_ITS | Encounter Summary ---
Author Organization [facility] [place] [address] Care Team Providers Care Pile Driver Operator Name Role Phone Kay Caldwell MD Primary Care Provider [phone] Reason for Visit * Reason Comments Back Pain * Consultation (Routine) - Closed Specialty Diagnoses / Procedures Referred By Contac t Referred To Contact [facility] Diagnoses Spondylosis of lumbar region without myelopathy or radiculopathy Procedures CA GROUP THERAPEUTIC PROCEDURES CA GROUP THERAPEUTIC PROCEDURES HC OCCUPATIONAL THERAPY EVALUATION MODERATE COMPLEXITY PRO ESTABLISHED PATIENT LEVEL 4 HC ESTABLISHED PATIENT LEVEL 4 PRO ESTABLISHED PATIENT LEVEL 3 HC ESTABLISHED PATIENT LEVEL 3 PRO FUNCTIONAL ISLAM PROGRAM LECTURE, GROUP HC THERAPEUTIC ACTIVITY EA 15 MIN HC PHYSICAL THERAPY RE-EVALUATION EST PLAN CARE HC PHYSICAL PERFORMANCE TEST W REPORT 15 MIN Jazmín Santiago, BRUNO [facility] [address] [facility] Fr [address] [place] [address] Referral ID Status Reason Start Date Expiration Date Visits Requested Visits Authorized [id number] Closed Functional Restorative Program 03/25/2023 03/24/2024 52 52 Encounter Details Date Type Department Care Team (Latest Contact Info) Description 04/16/2023 11:00 AM EDT Office Visit Functional Gnosticist Program at [facility] [address] [place] [address] Ariana Brock, OT Spondylosis of lumbar region without myelopathy or radiculopathy Social History Tobacco Use Types Packs/Day Years Used Date Smoking Tobacco: Former Smokeless Tobacco: Never Sex and Gender Information Value Date Recorded Sex Assigned at Not on file Gender Identity Not on file Sexual Orientation Not on file documented as of this encounter Miscellaneous Notes * Treatment - Therapy - Ariana Brock OT - 04/16/2023 11:00 AM EDT P Occupational Therapy Note In Person Orientation to Functional Conditioning [facility] Day 2 Protocol Subjective: Ms. Garduno returns for Day 2 of the Functional Gnosticist Program. She reports feeling good today. Objective: Refer to [facility] protocol for additional explanation of program/occupational therapy details. Group of 6 Exercises performed as a group with guidance and individualized cues for form. AM Pain Neuroscience Education/Discussion with OT/PT/TECHNICAL DELIVERY MANAGER PM Orientation and Conditioning - Ms. Garduno received individual instruction in functional conditioning and was given an opportunity to demonstrate understanding of and ability to perform each task. She completed a return demonstration for each exercise to ensure proper form and safety. Introduced straight-leg lifting technique used to increase back strength and decrease fear of re-injury. The rationale for this technique was thoroughly explained so that Ms. Garduno understands that, while it is an effective training technique, it will not be the appropriate technique to use for all heavy lifts in the future. Ms. Garduno [facility] Exercises reviewed are as follows: - Crate Carry for 5 Minutes or 1 Handed Bucket carry 10 minutes - Push/Pull - 0x10 reps - Weighted Cart Twist or Vacuum - 10lbs x20 reps - Wall Clock - 4lb ball x2 reps or PEGS 2 minutes Functional Crate Lifting: - Floor to Waist (straight- leg lifting) = 5 lbs x 10 reps - Waist to Shoulder = 5lbs x10 reps - Occasional Lift (Squat Lift) = 10 lbs x 5 reps Assessment: Ms. Garduno demonstrated a good understanding of today's functional conditioning principles and initial exercise protocols. She demonstrates good form with all functional conditioning exercises. She actively participated with initiation of training components. Plan: Return for follow up with [facility] per protocol. Length of Treatment: Ms. Garduno [...] AM EST Office Visit Hematology/Oncology at [address] [phone] Erica Yi [address] MEDICAL ONCOLOGY [place], [place] [phone] 09/18/2024 11:00 AM EST Infusion Hematology Oncology at [address] [phone] 10/01/2024 3:45 PM EST Office Visit Functional Gnosticist Program at [address] [place] [address] Gene Julien Jr., PT 12/23/2024 8:00 AM EST Appointment XRay at [address] [place] [phone] River Ochoa MD [address] [place] [address] 01/21/2025 1:00 PM EDT Office Visit Radiation Oncology at [address] [phone] Tory Salazar PA [facility] [place] [address] documented as of this encounter Visit Diagnoses Diagnosis Spondylosis of lumbar region without myelopathy or radiculopathy Lumbosacral spondylosis without myelopathy documented in this encounter Care Teams Pile Driver Operator Relationship Specialty Start Date End Date Kay Caldwell MD [address] [place] [address] [address] [place] [address] PCP - General Family Medicine 08/15/22 documented as of this encounter
--- OUTSIDE RECORDS SUMMARY | 2024-09-18 01:20 | XMS_ITS | Encounter Summary ---
Author Organization [facility] [place] [address] Care Team Providers Care Cement Tile Maker Name Role Phone Kay Caldwell MD Primary Care Provider [phone] Reason for Visit * Consultation (Routine) - [...] HC ESTABLISHED PATIENT LEVEL 3 PRO FUNCTIONAL VOODOO PROGRAM LECTURE, GROUP HC THERAPEUTIC ACTIVITY EA 15 MIN HC PHYSICAL THERAPY RE-EVALUATION EST PLAN CARE HC PHYSICAL PERFORMANCE TEST W REPORT 15 MIN Jazmín Santiago, TERMITE EXTERMINATOR [facility] [place] [address] [facility] Frp [address] [place] [address] Referral ID Status Reason Start Date Expiration Date Visits Requested Visits Authorized [id number] Closed Functional Restorative Program 03/25/2023 03/24/2024 52 52 Encounter Details Date Type Department Care Team (Late st Contact Info) Description 04/22/2023 8:00 AM EDT Office Visit Functional Mandaen Program at [facility] [address] [place] [address] Gene Julien Jr., PT Lumbar spondylosis; Lumbar foraminal stenosis; Radiculopathy of cervical region; Spondylosis of lumbar region without myelopathy or radiculopathy; Radiculopathy of lumbar region Social History Tobacco Use Types Packs/Day Years Used Date Smoking Tobacco: Former Smokeless Tobacco: Never Sex and Gender Information Value Date Recorded Sex Assigned at Not on file Gender Identity Not on file Sexual Orientation Not on file documented as of this encounter Miscellaneous Notes * Treatment - Therapy - Gene Julien JrDerrell, PT - 04/22/2023 8:00 AM EDT P Physical Therapy Note P Day 6 Warm Up Exercises Protocol Subjective: Josselyn Garduno returns today for a scheduled follow up appointment with [facility]; Josselyn reports having more discomfort in her back while walking longer distances, but is still able to complete it. Objective: Treatment Received: Group of 6 Initial [...] 2 sets to tolerance Cardio performed on Elliptical 8 Mins See [facility] flowsheet for details on time held and [...] for follow up with [facility] per protocol. Personal Function 3 Month Goals [...] AM EST Office Visit Hematology/Oncology at [address] [phone] Eric[address] Yi [address] MEDICAL ONCOLOGY [place], [place] [phone] 09/18/2024 11:00 AM EST Infusion Hematology Oncology at [address] [phone] 10/01/2024 3:45 PM EST Office Visit Functional Mandaen Program at [address] [place] [address] Gene Julien Jr., PT 12/23/2024 8:00 AM EST Appointment XRay at [address] [place] [phone] River Ochoa MD [address] [place] [address] 01/21/2025 1:00 PM EDT Office Visit Radiation Oncology at [address] [phone] Tory Salazar PA [facility] [place] [address] documented as of this encounter Visit Diagnoses Diagnosis Lumbar spondylosis Lumbosacral spondylosis without myelopathy Lumbar foraminal stenosis Spinal stenosis, lumbar region, without neurogenic claudication Radiculopathy of cervical region Brachial neuritis or radiculitis nos Spondylosis of lumbar region without myelopathy or radiculopathy Lumbosacral spondylosis without myelopathy Radiculopathy of lumbar region Thoracic or lumbosacral neuritis or radiculitis, unspecified documented in this encounter Care Teams Cement Tile Maker Relationship Specialty Start Date End Date Kay Caldwell MD [address] [place] [address] [place] [address] PCP - General Family Medicine 08/15/22 documented as of this encounter
--- OUTSIDE RECORDS SUMMARY | 2024-09-18 01:20 | XMS_ITS | Encounter Summary ---
Author Organization [facility] [place] [address] Care Team Providers Care Template Cutter Name Role Phone Kay Caldwell MD Primary Care Provider [phone] Encounter Details Date Type Department Care Team (Latest Contact Info) Description 03/24/2023 Travel Social History Tobacco Use Types Packs/Day [...] AM EST Office Visit Hematology/Oncology at [address] [phone] Erica Yi APRN [address] [place] [address] [place] [address] 09/18/2024 11:00 AM EST Infusion Hematology Oncology at [address] [phone] 10/01/2024 3:45 PM EST Office Visit Functional Hinduism Program at [facility] [address] [place] [address] Gene Julien Jr., PT 12/23/2024 8:00 AM EST Appointment XRay at [facility] [phone] River Ochoa MD [address] [place] [address] 01/21/2025 1:00 PM EDT Office Visit Radiation Oncology at [address] [phone] Tory Salazar PA [facility] DR HEMATOLOGY [place] [address] documented as of this encounter Visit Diagnoses Not on filedocumented in this encounter Care Teams Template Cutter Relationship Specialty Start Date End Date Kay Caldwell MD [address] [place] [address] [address] [place] [address] PCP - General Family Medicine 08/15/22 documented as of this encounter
--- OUTSIDE RECORDS SUMMARY | 2024-09-18 01:20 | XMS_ITS | Encounter Summary ---
Author Organization [facility] One [facility] [place] [id number] Care Team Providers Care Gum Cook Name Role Phone Kay Caldwell MD Primary Care Provider +1 [phone] Encounter Details Date Type Department Care Team (Latest Contact Info) Description 04/19/2023 Travel Social History Tobacco Use Types Packs/Day [...] AM EST Office Visit Hematology/Oncology at [address] [phone] Erica Yi APRN [address] [place] [address] DR MEDICAL ONCOLOGY [place], [place] [address] 09/18/2024 11:00 AM EST Infusion Hematology Oncology at [address] [phone] 10/01/2024 3:45 PM EST Office Visit Functional Religious Program at [facility] [address] [place] [address] Gene Julien Jr., PT 12/23/2024 8:00 AM EST Appointment XRay at [facility] [place] [id number] River Ochoa MD [address] [place] [address] 01/21/2025 1:00 PM EDT Office Visit Radiation Oncology at [address] [phone] Tory Salazar PA [facility] DR [place] [address] documented as of this encounter Visit Diagnoses Not on filedocumented in this encounter Care Teams Gum Cook Relationship Specialty Start Date End Date Kay Caldwell MD [address] [place] [address] [place] [address] PCP - General Family Medicine 08/15/22 documented as of this encounter
--- OUTSIDE RECORDS SUMMARY | 2024-09-18 01:20 | XMS_ITS | Encounter Summary ---
Author Organization [facility] [place] [address] Care Team Providers Care Rn Clinical Coordinator Name Role Phone Kay Caldwell MD Primary Care Provider +1 [phone] Reason for Visit * Reason Comments Back [...] Santiago, BRUNO [facility] [place] [address] [facility] Fr [address] [place] [address] Referral ID Status Reason Start Date Expiration Date Visits Requested Visits Authorized [id number] Closed Functional Restorative Program 03/25/2023 03/24/2024 52 52 Encounter Details Date Type Department Care Team (Late st Contact Info) Description 04/22/2023 11:00 AM EDT Office Visit Functional Religious Program at [facility] [address] [place] [address] Ariana Brock, OT Lumbar spondylosis Social History Tobacco Use Types Packs/Day Years Used Date Smoking Tobacco: Former Smokeless Tobacco: Never Sex and Gender Information Value Date Recorded Sex Assigned at Not on file Gender Identity Not on file Sexual Orientation Not on file documented as of this encounter Miscellaneous Notes * Treatment - Therapy - Ariana Brock, OT - 04/22/2023 11:00 AM EDT P Occupational Therapy Note [facility] Day 6 Protocol Subjective: Ms. Garduno returns today for a scheduled follow up appointment with [facility]. She reports overall had a good weekend, feeling some soreness this morning. Objective: Refer to [facility] protocol for details and explanation [...] Twist x20 reps - Wall Clock - x4 reps Functional Crate Lifting: - Floor to [...] activity focusing on body scan. Participated in 15 minutes of unguarded card game activity involving stooping and fast changing movements. Weekend Home Program: Reviewed Ms. Garduno's participation in assigned home exercise program over the past weekend. She reports she was able to complete her home program: Walking 20 minutes: Completed Stretching twice a day: Completed Functional lifting: Completed Mindfulness meditation: Completed Please see goals in initial OT evaluation [...] form with all functional conditioning exercises. She does well with incorporation of counteracting stretches when needed for symptom management. She actively participated with initiation [...] AM EST Office Visit Hematology/Oncology at [address] [phone] Erica Yi APRN [address] [place] [address] [place] [address] 09/18/2024 11:00 AM EST Infusion Hematology Oncology at [address] [phone] 10/01/2024 3:45 PM EST Office Visit Functional Religious Program at [address] [place] [address] Gene Julien Jr., PT 12/23/2024 8:00 AM EST Appointment XRay at [address] [place] [address] River Ochoa MD [address] [place] [address] 01/21/2025 1:00 PM EDT Office Visit Radiation Oncology at [address] [phone] Tory Salazar PA [facility] HEMATOLOGY [place] [address] documented as of this encounter Visit Diagnoses Diagnosis Lumbar spondylosis Lumbosacral spondylosis without myelopathy documented in this encounter Care Teams Rn Clinical Coordinator Relationship Specialty Start Date End Date Kay Caldwell MD [address] [place] [address] [address] [place] [address] PCP - General Family Medicine 08/15/22 documented as of this encounter
--- OUTSIDE RECORDS SUMMARY | 2024-09-18 01:20 | XMS_ITS | Encounter Summary ---
Author Organization [facility] One [facility] [place] [address] Care Team Providers Care Operation Manager Name Role Phone Kay Caldwell MD Primary Care Provider +1 [phone] Encounter Details Date Type Department Care Team (Latest Contact Info) Description 04/22/2023 Travel Social History Tobacco Use Types Packs/Day [...] AM EST Office Visit Hematology/Oncology at [address] [phone] Erica Yi APRN [address] [place] [address] DR MEDICAL ONCOLOGY [place], [place] [address] 09/18/2024 11:00 AM EST Infusion Hematology Oncology at [address] [phone] 10/01/2024 3:45 PM EST Office Visit Functional Orthodox Program at [facility] [address] [place] [address] Gene Julien Jr., PT 12/23/2024 8:00 AM EST Appointment XRay at [facility] [place] [address] River Ochoa MD [address] [place] [address] 01/21/2025 1:00 PM EDT Office Visit Radiation Oncology at [address] [phone] Tory Salazar PA [facility] DR HEMATOLOGY [place] [address] documented as of this encounter Visit Diagnoses Not on filedocumented in this encounter Care Teams Operation Manager Relationship Specialty Start Date End Date Kay Caldwell MD [address] [place] [address] [address] [place] [address] PCP - General Family Medicine 08/15/22 documented as of this encounter
--- OUTSIDE RECORDS SUMMARY | 2024-09-18 01:20 | XMS_ITS | Encounter Summary ---
Author Organization [facility] One [facility] [place] [place] [address] Care Team Providers Care World Travel Counselor Name Role Phone Kay Caldwell MD Primary Care Provider [phone]- [phone] Encounter Details Date Type Department Care Team (Latest Contact Info) Description 11/29/2022 Travel Social History Tobacco Use Types Packs/Day [...] AM EST Office Visit Hematology/Oncology at [address] [phone] Erica Yi APRN [address] [place] [address] DR MEDICAL ONCOLOGY [place], [place] [address] 09/18/2024 11:00 AM EST Infusion Hematology Oncology at [address] [phone] 10/01/2024 3:45 PM EST Office Visit Functional Jew Program at [facility] [address] [place] [address] Gene Julien Jr., PT 12/23/2024 8:00 AM EST Appointment XRay at [facility] [place] [address] River Ochoa MD [address] [place] [address] 01/21/2025 1:00 PM EDT Office Visit Radiation Oncology at [address] [phone] Tory Salazar PA [facility] DR HEMATOLOGY [place] [address] documented as of this encounter Visit Diagnoses Not on filedocumented in this encounter Care Teams World Travel Counselor Relationship Specialty Start Date End Date Kay Caldwell MD [address] [place] [address] [place] [address] PCP - General Family Medicine 08/15/22 documented as of this encounter
--- OUTSIDE RECORDS SUMMARY | 2024-09-18 01:20 | XMS_ITS | Encounter Summary ---
Author Organization [facility] [place] [address] Care Team Providers Care Ecg Technician Name Role Phone Kay Caldwell MD Primary Care Provider +[phone] Reason for Visit * Consultation (Routine) - [...] HC ESTABLISHED PATIENT LEVEL 3 PRO FUNCTIONAL ZOROASTRIANISM PROGRAM LECTURE, GROUP HC THERAPEUTIC ACTIVITY EA 15 MIN HC PHYSICAL THERAPY RE-EVALUATION EST PLAN CARE HC PHYSICAL PERFORMANCE TEST W REPORT 15 MIN Jazmín Santiago APRN [facility] [place] [address] [facility] Fr [address] [place] [address] Referral ID Status Reason Start Date Expiration Date Visits Requested Visits Authorized [id number] Closed Functional Restorative Program 03/25/2023 03/24/2024 52 52 Encounter Details Date Type Department Care Team (Latest Contact Info) Description 04/15/2023 10:15 AM EDT Office Visit Functional Mandaen Program at [facility] [address] [place] [address] Jazmín Santiago APRN [facility] [place] [address] Spondylosis of lumbar region without myelopathy or radiculopathy Social History Tobacco Use Types Packs/Day Years Used Date Smoking Tobacco: Former Smokeless Tobacco: Never Sex and Gender Information Value Date Recorded Sex Assigned at Not on file Gender Identity Not on file Sexual Orientation Not on file documented as of this encounter Progress Notes * Jazmín Santiago APRN - 04/15/2023 10:15 AM EDT Chief complaint requiring rehabilitation: right low back and abdomen pain This is the goals and health barriers visit and note for admission to the Functional Mandaen Program. Personal Function 3 Month Goals Vocational: None Identified Recreational: Be able to resume luis class and exercise routine; Be able to walk for longer periods of time. Daily Living: Be able to stand for longer periods to cook a meal, Be able to do housework includingvacuuming; Be able to garden; Be able to lift and carry heavier groceries, laundry basket. With these goals in mind, the following review of systems was positive as noted: Chest pain: no Shortness of breath: no Palpitations: no Chronic cough: no Hypertension: controlled Cigarettes: no Joint pains or injuries: 2 artificial knees and they will occasionally ache Any physical problem that might worsen with exercise: no Depression: yes, takes medication , no SI, feels well controlled Anxiety/PTSD: anxiety, no meds feels like she can function with it. Sleep problems: 6-7 hours wakes once to urinate, She feels rested. Counseling history: sees a counselor and psychiatrist. 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 documented in this encounter Plan of Treatment Upcoming Encounters Date Type Department Care Team (Late st Contact Info) Description 09/18/2024 10:30 AM EST Office Visit Hematology/Oncology at [address] [phone] Erica Yi APRN [address] [place] [address] DR MEDICAL ONCOLOGY [place], [place] [address] 09/18/2024 11:00 AM EST Infusion Hematology Oncology at [address] [phone] 10/01/2024 3:45 PM EST Office Visit Functional Mandaen Program [place] [address] [place] [address] Gene Julien Jr., PT 12/23/2024 8:00 AM EST Appointment XRay at [address] [place] [address] River Ochoa MD [address] [place] [address] 01/21/2025 1:00 PM EDT Office Visit Radiation Oncology at [address] [phone] Tory Salazar PA [facility] [place] [address] documented as of this encounter Visit Diagnoses Diagnosis Spondylosis of lumbar region without myelopathy or radiculopathy Lumbosacral spondylosis without myelopathy documented in this encounter Care Teams Ecg Technician Relationship Specialty Start Date End Date Kay Caldwell MD [address] [place] [address] [address] [place], [place] [address] PCP - General Family Medicine 08/15/22 documented as of this encounter
--- OUTSIDE RECORDS SUMMARY | 2024-09-18 01:20 | XMS_ITS | Encounter Summary ---
Author Organization [facility] [place] [address] Care Team Providers Care Dynamotor Repairer Name Role Phone Kay Caldwell MD Primary Care Provider [phone]- [phone] Reason for Visit * Consultation (Routine) - Closed Specialty Diagnoses / Procedures Referred By Contac t Referred To Contact Pain and Spine Center Diagnoses Spondylosis of lumbar region without myelopathy or radiculopathy Procedures OK GROUP THERAPEUTIC PROCEDURES OK GROUP THERAPEUTIC PROCEDURES HC OCCUPATIONAL THERAPY EVALUATION MODERATE COMPLEXITY PRO ESTABLISHED PATIENT LEVEL 4 HC ESTABLISHED PATIENT LEVEL 4 PRO ESTABLISHED PATIENT LEVEL 3 HC ESTABLISHED PATIENT LEVEL 3 PRO FUNCTIONAL LATTER DAY PROGRAM LECTURE, GROUP HC THERAPEUTIC ACTIVITY EA 15 MIN HC PHYSICAL THERAPY RE-EVALUATION EST PLAN CARE HC PHYSICAL PERFORMANCE TEST W REPORT 15 MIN Jazmín Santiago, KEY ACCOUNT REPRESENTATIVE [facility] [place] [address] [facility] Frp [address] [place] [address] Referral ID Status Reason Start Date Expiration Date Visits Requested Visits Authorized [id number] Closed Functional Restorative Program 03/25/2023 03/24/2024 52 52 Encounter Details Date Type Department Care Team (Late st Contact Info) Description 2023 8:00 AM EDT Office Visit Functional Episcopalian Program at [facility] [address] [place] [address] Gene Julien Jr., PT Lumbar [...] Therapy - Gene Julien JrDerrell, PT - 2023 8:00 AM EDT FRP Physical Therapy Note FRP Day 7 Warm Up Exercises Protocol Subjective: Josselyn Garduno returns today for a scheduled follow up appointment with [facility]; Josselyn reports having lower back discomfort and stiffness. Objective: Treatment Received: Group of 6 Initial Instruction in form with modifications as necessary for: 30 Minutes Standing Step Exercises Toe Taps [...] Squats Supine Lower Trunk Rotation Supine Crunches Supine Bridges Press Ups Exercises below performed with guidance [...] Cardio performed on TM 15 Mins See P flowsheet for details on time [...] session. Plan: Return for follow up with [facility] per protocol. Personal Function 3 Month [...] AM EST Office Visit Hematology/Oncology at [address] [phone] Erica Yi [address] MEDICAL ONCOLOGY [place], [place] [phone] 09/18/2024 11:00 AM EST Infusion Hematology Oncology at [address] [phone] 10/01/2024 3:45 PM EST Office Visit Functional Episcopalian Program at [address] [place] [address] Gene Julien Jr., PT 12/23/2024 8:00 AM EST Appointment XRay at [address] [place] [address] River Ochoa MD [address] [place] [address] 01/21/2025 1:00 PM EDT Office Visit Radiation Oncology at [address] [phone] Tory Salazar PA [facility] HEMATOLOGY [place] [address] documented as of this encounter Visit Diagnoses [...] myelopathy documented in this encounter Care Teams Dynamotor Repairer Relationship Specialty Start Date End Date Kay Caldwell MD [address] [place] [address] [place] [address] PCP - General Family Medicine 08/15/22 documented as of this encounter
--- OUTSIDE RECORDS SUMMARY | 2024-09-18 01:20 | XMS_ITS | Encounter Summary ---
Author Organization [facility] One [facility] [place] [address] Care Team Providers Care Caretaker Grounds Name Role Phone Kay Caldwell MD Primary Care Provider [phone] [phone] Encounter Details Date Type Department Care Team (Latest Contact Info) Description 04/18/2023 Travel Social History Tobacco Use Types Packs/Day [...] AM EST Office Visit Hematology/Oncology at [address] [phone] Erica Yi APRN [address] [place] [address] DR MEDICAL ONCOLOGY [place], [place] [phone] 09/18/2024 11:00 AM EST Infusion Hematology Oncology at [address] [phone] 10/01/2024 3:45 PM EST Office Visit Functional Yazdanism Program at [facility] [address] [place] [address] Gene Julien Jr., PT 12/23/2024 8:00 AM EST Appointment XRay at [facility] [place] [address] River Ochoa MD [address] [place] [address] 01/21/2025 1:00 PM EDT Office Visit Radiation Oncology at [address] [phone] Tory Salazar PA [facility] DR [place] [address] documented as of this encounter Visit Diagnoses Not on filedocumented in this encounter Care Teams Caretaker Grounds Relationship Specialty Start Date End Date Kay Caldwell MD [address] [place] [address] [address] [place] [address] PCP - General Family Medicine 08/15/22 documented as of this encounter
--- OUTSIDE RECORDS SUMMARY | 2024-09-18 01:20 | XMS_ITS | Encounter Summary ---
Author Organization [facility] [place] [address] Care Team Providers Care Manager Library Name Role Phone Kay Caldwell MD Primary Care Provider [phone] [phone] Reason for Referral * Consultation (Routine) - Closed Specialty Diagnoses / Procedures Referred By Contac t Referred To Contact Pain and Spine Center Diagnoses Lumbar foraminal stenosis Spondylosis of lumbar region without myelopathy or radiculopathy Procedures HC PHYSICAL PERFORMANCE TEST W REPORT 15 MIN PRO ESTABLISHED PATIENT LEVEL 4 HC ESTABLISHED PATIENT LEVEL 4 Jazmín Stuart APRN [facility] [place] [address] [facility] [place] [address] Referral ID Status Reason Start Date Expiration Date Visits Requested Visits Authorized [id number] Closed Functional Restorative Program 03/15/2023 03/14/2024 2 2 Encounter Details Date Type Department Care Team (Latest Contact Info) Description 03/14/2023 8:00 AM EDT Office Visit [place] [address] Jazmín Stuart APRN [facility] [place] [address] Lumbar foraminal stenosis; Spondylosis of lumbar region [...] Sign Reading Time Taken Comments Blood Pressure 126/48 03/14/2023 7:54 AM EDT Pulse 62 03/14/2023 7:54 AM EDT Temperature - - Respiratory Rate - - Oxygen Saturation 100% 03/14/2023 7:54 AM EDT Inhaled Oxygen Concentration - - Weight - - Height - - Body Mass Index - - documented in this encounter Progress Notes * Jazmín Stuart, CERTIFIED PROFESSIONAL MIDWIFE - 03/14/2023 8:00 AM EDT Images from the original note were not included. [facility] TELE-HEALTH FOLLOW UP Date of Consultation: March 11, 2023 Referring Provider: Kay Caldwell Reason for request [...] [place] 2 [place] and during [place]. 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 In addition, she started taking [...] risk if its not likely to help. PAIN ASSESSMENT: Description: Right flank pain to abdomen, dull ache Other associated symptoms:not associated Left posterior tingling to ankle Alleviating factors: staying still Aggravating factors:movement Lateral bending , forward bending, twisting Pain today:7-8 Best in past week:3-4/10 Worst in past week: 8/10 View : No data to display. 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 Allergies & Adverse Reactions: Opioids - morphine [...] 1.9) performed by Cosmo Blanco MD at [facility] PAIN MGMT MSO ??? PRO INJ, FORAMEN, L/S, 1 LEVEL Right 11/09/2022 INJECTION, ANESTHETIC AGENT AND/OR STEROID, TRANSFORAMINAL EPIDURAL, LUMBAR OR SACRAL, SINGLE LEVEL(WRVU 1.9) performed by Jose Tai MD at [facility] PAIN MGMT MSO ??? PRO INJ, FORAMEN, L/S, ADDL LEVELS Right 10/09/2022 INJECTION, ANESTHETIC AGENT AND/OR STEROID, TRANSFORAMINAL EPIDURAL, LUMBAR OR SACRAL, EACH ADDITIONAL LEVEL (WRVU 1) performed by Cosmo Blanco MD at [facility] PAIN [facility]MT MSO ??? PRO INJECTION DX/THER SBST INTRLMNR LMBR/SAC W/IMG GDN Right 11/21/2022 INJECTION, EPIDURAL, LUMBAR OR SACRAL (CAUDAL), WITH IMAGING GUIDANCE (WRVU 1.8) performed by Jose Tai MD at [facility] PAIN MGMT MSO ??? PRO INJECTION PV FACET JOINT LUMBAR/SACRAL SINGLE LEVEL Right 12/11/2022 INJECTION, FACET JOINT, W\FLUORO, LUMBAR, SINGLE (WRVU 1.52) performed by Jose Tai MD at [facility] PAIN MG[facility] MSO Review of Systems: Denies [...] is a 77 y.o. year-old female who is here for [...] do not have any since early January. Josselyn has called us back and let us know that she would like to participate in the functional baptism program hopefully May and so I would place a order for a gap assessment for her. Thank you Dr. Caldwell for allowing my participation in Josselyn Garduno's care. Jazmín Stuart, MS, ENVIRONMENTAL CHANGE ANALYST-BC, CERTIFIED PROFESSIONAL MIDWIFE Nurse practitioner Pain management [facility] documented in this encounter Miscellaneous Notes * Addendum Note - Jazmín Stuart APRN - 03/14/2023 8:00 AM EDTAddended by: JAZMÍN STUART on: 03/15/2023 09:18 AM Modules accepted: Orders documented in this encounter Plan of Treatment Upcoming Encounters Date Type Department Care Team (Late st Contact Info) Description 09/18/2024 10:30 AM EST Office Visit Hematology/Oncology at [address] [phone] Erica Yi APRN [address] [place] [address] DR MEDICAL ONCOLOGY [place], [place] [address] 09/18/2024 11:00 AM EST Infusion Hematology Oncology at [address] [phone] 10/01/2024 3:45 PM EST Office Visit Functional Denominational Program at [facility] [address] [place] [address] Gene Julien Jr., PT 12/23/2024 8:00 AM EST Appointment XRay at [address] [place] [address] River Ochoa MD [address] [place] [address] 01/21/2025 1:00 PM EDT Office Visit Radiation Oncology at [address] [phone] Tory Salazar PA [facility] DR HEMATOLOGY [place] [address] Scheduled Referrals Name Type Priority Associated Diagnoses Orde r Schedule Referral to Spine Center Outpatient Referral Routine Lumbar foraminal stenosis Spondylosis of lumbar region without myelopathy or radiculopathy Ordered: 03/15/2023 documented as of this encounter Visit Diagnoses Diagnosis Lumbar foraminal stenosis Spinal stenosis, lumbar region, without neurogenic claudication Spondylosis of lumbar region without myelopathy or radiculopathy Lumbosacral spondylosis without myelopathy documented in this encounter Care Teams Manager Library Relationship Specialty Start Date End Date Kay Caldwell MD [address] [place] [address] [address] [place], [place] [address] PCP - General Family Medicine 08/15/22 documented as of this encounter
--- OUTSIDE RECORDS SUMMARY | 2024-09-18 01:20 | XMS_ITS | Encounter Summary ---
Author Organization [facility] [place] [address] Care Team Providers Care Mva Reactor Operator Head Name Role Phone Kay Caldwell MD Primary Care Provider [phone] Encounter Details Date Type Department Care Team (Latest Contact Info) Description 03/14/2023 Travel Social History Tobacco Use Types Packs/Day [...] AM EST Office Visit Hematology/Oncology at [address] [phone] Erica Yi APRN [address] [place] [address] DR MEDICAL ONCOLOGY [place], [place] [address] 09/18/2024 11:00 AM EST Infusion Hematology Oncology at [address] [phone] 10/01/2024 3:45 PM EST Office Visit Functional Latter-Day Program at [facility] [address] [place] [address] Gene Julien Jr., PT 12/23/2024 8:00 AM EST Appointment XRay at [facility] [place] [address] River Ochoa MD [address] [place] [address] 01/21/2025 1:00 PM EDT Office Visit Radiation Oncology at [address] [phone] [facility] [address] [place] [address] documented as of this encounter Visit Diagnoses Not on filedocumented in this encounter Care Teams Mva Reactor Operator Head Relationship Specialty Start Date End Date Kay Caldwell MD [address] [place] [place] [address] [address] [place] [address] PCP - General Family Medicine 08/15/22 documented as of this encounter
--- OUTSIDE RECORDS SUMMARY | 2024-09-18 01:20 | XMS_ITS | Encounter Summary ---
Author Organization [facility] [place] [address] Care Team Providers Care Deflector Operator Name Role Phone Kay Caldwell MD Primary Care Provider [phone] Reason for Visit * Consultation (Routine) - Closed Specialty Diagnoses / Procedures Referred By Contac t Referred To Contact [facility] Diagnoses Spondylosis of lumbar region without myelopathy or radiculopathy Procedures OR GROUP THERAPEUTIC PROCEDURES OR GROUP THERAPEUTIC PROCEDURES HC OCCUPATIONAL THERAPY EVALUATION [...] APRN [facility] [place] [address] [facility] [address] [place] [address] Referral ID Status Reason Start Date Expiration Date Visits Requested Visits Authorized [id number] Closed Functional Restorative Program 03/25/2023 03/24/2024 52 52 Encounter Details Date Type Department Care Team (Latest Contact Info) Description 04/16/2023 10:00 AM EDT Office Visit Functional Shinto Program at [facility] [address] [place] [address] Jazmín Santiago APRN [facility] [place] [address] Spondylosis of lumbar region without myelopathy or radiculopathy Social History Tobacco Use Types Packs/Day Years Used Date Smoking Tobacco: Former Smokeless Tobacco: Never Sex and Gender Information Value Date Recorded Sex Assigned at Not on file Gender Identity Not on file Sexual Orientation Not on file documented as of this encounter Progress Notes * Jazmín Santiago APRN - 04/16/2023 10:00 AM EDT 04/15/2023 [id number] Josselyn Garduno FUNCTIONAL ORTHODOX PROGRAM REHABILTIATION TRAINING LECTURE Chief complaint requiring rehabilitation: Back and abdominal pain Title: ? Pain & Function? Presenter: Jazmín Santiago MS BRUNO This one hour lecture began with interactive exercises to demonstrate the difficulties in assessingand understanding another person???s pain. Then the question of activity limitation and prescription was reviewed in terms of personal pain experience and expectations, functional goals and priorities, medical expertise. The learning model of reacting to pain by limiting activity was reviewed leading to a discussion of the development of safe training methods that are gradually progressive and goal- and quota-based rather than symptom- reactive. Importance of maintaining physical gains after rehabilitation by committing to a more active lifestyle was stressed. and Title: Goal Setting Presenter:Jazmín Santiago APRN This is a one hour lecture and interactive group session. Individuals??? responses to their initialgoal setting questionnaires are discussed with special attention to the diversity of their pain andfunctional goals and priorities. The complex relationship between pain and function is discussed inthe context of underlying beliefs and expectations and how these may dramatically affect recovery and the individuals??? ability to get what they want from treatment. Practical application of these issues to the individual???s situation is stressed. Lecture Time: 60 min. documented in this encounter Plan of Treatment Upcoming Encounters Date Type Department Care Team (Late st Contact Info) Description 09/18/2024 10:30 AM EST Office Visit Hematology/Oncology at [address] [phone] Erica Yi APRN [address] [place] [address] [place] [address] 09/18/2024 11:00 AM EST Infusion Hematology Oncology at [address] [phone] 10/01/2024 3:45 PM EST Office Visit Functional Shinto Program at [facility] [address] [place] [address] Gene Julien Jr., PT 12/23/2024 8:00 AM EST Appointment XRay at [address] [place] [address] River Ochoa MD [address] [place] [address] 01/21/2025 1:00 PM EDT Office Visit Radiation Oncology at [address] [phone] Tory Salazar V., PA [facility] DR [place] [address] documented as of this encounter Visit Diagnoses Diagnosis Spondylosis of lumbar region without myelopathy or radiculopathy Lumbosacral spondylosis without myelopathy documented in this encounter Care Teams Deflector Operator Relationship Specialty Start Date End Date Kay Caldwell MD [address] [place] [address] [place] [address] PCP - General Family Medicine 08/15/22 documented as of this encounter
--- OUTSIDE RECORDS SUMMARY | 2024-09-18 01:20 | XMS_ITS | Encounter Summary ---
Author Organization [facility] [place] [address] Care Team Providers Care Electric Meter Tester Shop Name Role Phone Kay Caldwell MD Primary Care Provider [phone] Reason for Visit * Auth/Cert (Routine) Specialty Diagnoses / Procedures Referred By Contac t Referred To Contact Diagnoses lumbar spondylosis Procedures PRO INJECTION PV FACET JOINT LUMBAR/SACRAL SINGLE LEVEL INJECTION, FACET JOINT, W\FLUORO, LUMBAR, SINGLE (WRVU 1.52) Jose Tai MD [facility] [place] [address] [facility] Referral ID Status Reason Start Date Expiration Date Visits Re quested Visits Authorized [id number] 1 1 Encounter Details Date Type Department Care Team (Latest Contact Info) Description 12/11/2022 12:14 PM EST - 12/11/2022 1:38 PM [facility] Hospital [place] [address] Jose Tai MD [facility] [place] [address] Lumbar foraminal stenosis Discharge Disposition: Home Social History Tobacco Use Types Packs/Day Years Used Date Smoking Tobacco: Former Smokeless Tobacco: Never Sex and Gender Information Value Date Recorded Sex Assigned at Not on file Gender Identity Not on file Sexual Orientation Not on file documented as of this encounter Last Filed Vital Signs Vital Sign Reading Time Taken Comments Blood Pressure 144/83 12/11/2022 1:25 PM EST Pulse 69 12/11/2022 12:39 PM EST Temperature - - Respiratory Rate - - Oxygen Saturation 96% 12/11/2022 1:30 PM EST Inhaled Oxygen Concentration - - Weight 89.8 kg (198 lb) 12/11/2022 12:39 PM EST Height 160 cm (5' 3) 12/11/2022 12:39 PM EST Body Mass Index 35.07 12/11/2022 12:39 PM EST documented in this encounter Medications at Time of Discharge Medication Sig Dispensed Refills Start Date End Date nystatin (MYCOSTATIN) 100,000 unit/gram Powder Prn 06/27/2022 multivitamin (THERAGRAN) Tablet Take 1 tablet by mouth daily. HERBAL DRUGS ORAL Take by mouth. Ivalee Wort, lemon balm, passiflora, leonorus, hypericum ACETAMINOPHEN ORAL Take 2 tablets by mouth as needed. lisinopriL (Zestril) 10 mg Tablet 06/27/2022 omeprazole (PriLOSEC) 20 mg Capsule, Delayed Release(E.C.) 06/27/2022 simvastatin (Zocor) 20 mg Tablet nightly. 07/02/2022 estrogens, conjugated, (Premarin) 0.3 mg tablet Take by mouth. 06/25/2022 10/07/2023 estrogens, conjugated, (Premarin) 0.625 mg/gram Cream Premarin 0.625 mg/gram vaginal cream 06/24/2018 10/29/2023 ergocalciferol, vitamin D2, (VITAMIN D ORAL) Take by mouth. 04/15 documented as of this encounter H&P Notes * Jose Tai MD - 12/10/2022 12:18 PM EST Patient Name: Josselyn Garduno Patient Age: 77 y.o. Birthdate: 1945 Admit date: (Not on file) Attending Physician: Jose Tai MD PREPROCEDURE HISTORY AND PHYSICAL Date of Visit: December 10, 2022 Chief Complaint: Low back pain HPI: Subjective Josselyn Garduno is a 77 y.o. female who presents today for a preoperative evaluation for Right L2-3 MBB. The history is obtained from the patient, and I have reviewed medical records provided by the referring physician and located in the electronic medical record to fill in gaps in the patient's recollection of events, treatments and outcomes. LOCATION: right lumbar area. PAIN LEVEL AT REST 06/20 PAST MEDICAL HISTORY: No past medical history on file. PAST SURGICAL HISTORY: Past Surgical History: Procedure Laterality Date ??? PRO INJ, FORAMEN, L/S, 1 LEVEL Right 10/09/2022 INJECTION, ANESTHETIC AGENT AND/OR STEROID, TRANSFORAMINAL EPIDURAL, LUMBAR OR SACRAL, SINGLE LEVEL(WRVU 1.9) performed by Cosmo Blanco MD at [facility] ??? PRO INJ, FORAMEN, L/S, 1 LEVEL Right 11/09/2022 INJECTION, ANESTHETIC AGENT AND/OR STEROID, TRANSFORAMINAL EPIDURAL, LUMBAR OR SACRAL, SINGLE LEVEL(WRVU 1.9) performed by Jose Tai MD at [facility] ??? PRO INJ, FORAMEN, L/S, ADDL LEVELS Right 10/09/2022 INJECTION, ANESTHETIC AGENT AND/OR STEROID, TRANSFORAMINAL EPIDURAL, LUMBAR OR SACRAL, EACH ADDITIONAL LEVEL (WRVU 1) performed by Cosmo Blanco MD at [facility] ??? PRO INJECTION DX/THER SBST INTRLMNR LMBR/SAC W/IMG GDN Right 11/21/2022 INJECTION, EPIDURAL, LUMBAR OR SACRAL (CAUDAL), WITH IMAGING GUIDANCE (WRVU 1.8) performed by Jose Tai MD at [facility] ALLERGIES: Opioids - morphine analogues MEDICATIONS: Medications 11/29/22 1032 Medication Sig Taking? multivitamin (THERAGRAN) Tablet Take 1 tablet by mouth daily. ergocalciferol, vitamin D2, (VITAMIN D ORAL) Take by mouth. HERBAL DRUGS ORAL Take by mouth. Ivalee Wort and other ingredients (pt unsure) ACETAMINOPHEN ORAL Take 2 tablets by mouth as needed. lisinopriL (Zestril) 10 mg Tablet omeprazole (PriLOSEC) 20 mg Capsule, Delayed Release(E.C.) simvastatin (Zocor) 20 mg Tablet nightly. FAMILY HISTORY: No family history on file. SOCIAL HISTORY: Social History Socioeconomic History ??? Marital status: [...] on file Housing Stability: Not on file ROS: Patient denies recent fevers, chills, infections, wounds, hospitalizations, ED visits or antibiotics use PHYSICAL EXAM: There were no vitals taken for this visit. CV: RRR Pulm: CTA B Skin: No concerning infection, erythema or warmth near the procedure site ASSESSMENT: Spondylosis of lumbar region without myelopathy or radiculopathy Josselyn Garduno is a 77 y.o. female who presents today for the above procedure. Risks and benefits were discussed with the patient and all questions answered. There are no contraindications to proceed. PLAN: Proceed with procedure as planned. Kaushik Ayala MD 12/10/2022 I have seen and examined the patient and reviewed the fellow's above history and agree with the details as written. The assessment and plan were formulated in discussion with me, and I agree with them as documented. Jose Tai MD, MS Field Pipe Lines Supervisor of Anesthesiology [facility] [employer] [address] [phone] / [facility] documented in this encounter Miscellaneous Notes * Op Note - Jose Tai MD - 12/11/2022 1:20 PM EST Pain Management Operative Note Patient Name: Josselyn Garduno : [id number] MR#: [id number] Case Date: 12/11/2022 Surgeon: Surgeon(s) and Role: * Jose Tai MD - Primary * Kaushik Ayala MD - Fellow Present on Admission: ??? Spondylosis of lumbar region without myelopathy or radiculopathy Postoperative diagnosis: Same Procedure(s) (LRB): INJECTION, FACET JOINT, W\FLUORO, LUMBAR, SINGLE (WRVU 1.52) (Right) LUMBAR/SACRAL MEDIAL BRANCH BLOCKS Date of Service: 11/29/2022 Patient: Josselyn Garduno Provider: Kaushik Ayala MD Josselyn Garduno has been referred to the Pain Management Center for lumbar/sacral medial branch blocks. COMMENTS: NOne Ms. Garduno was interviewed and the medical record reviewed. There were no medical, pharmacologic,radiographic or other structural contraindications to attempting fluoroscopically guided local anesthetic lumbar/sacral medial branch blocks. Risks and expected side effects as well as potential benefit of the procedure were reviewed with Ms. Carvajalnd her voiced concerns addressed. The printed consent form was signed and witnessed. Standard time-out procedure was performed. Ms. Garduno was placed in the prone position on the fluoroscopy table and automated blood pressurecuff and pulse oximeter applied. The skin entry points for approaching the anatomic target points of the segmental medial branches of right L1, L2 and L3 were identified with an fluoroscopy and marked. Following thorough Chlorhexidine preparation of theskin and draping and 1% lidocaine infiltration of the skin entry points and subcutaneous tissues, a22 gauge spinal needle was placed under fluoroscopic guidance down on to the target point for each respective segmental medial branch.Position was confirmed in A/P, oblique and lateral views with 0.5m l of Omnipaque 240. At each point 0.75ml Bupivacaine 0.5% was injected. Ms. Olearys vital signs were stable throughout the procedure and were as recorded in the docflowsheet by the nursing staff. Follow up plans and appointments were discussed with Ms. Garduno. Ms. Garduno was instructed to keep careful note of how the usual pain was modified by these injections. Specifically, she was askedto keep a pain diary for the next 24 hours using a numeric pain scale of 0-10 and report these results at the follow- up visit. Post procedure instruction was given as documented in the nursing documentation and having met discharge criteria, she was discharged from the Pain Management Center. Based on the medial branches blocked today, if they patient has adequate relief and we are able to proceed to radiofrequency ablation, the treatment should result in the denervation of the right L2-L3 and L3-L4. We would expect to denervate a total of 2 facets during the radiofrequency ablation. Kaushik Ayala MD Pain Medicine Fellow [facility] [place] [address] / I have seen and examined the patient and reviewed the fellow's above history and I agree with the details as written. I was the attending physician supervising the fellow in the above care and I was present with the fellow for the entire procedure. Jose Tai MD, MS Field Pipe Lines Supervisor of Anesthesiology [facility] [address] [phone] / [facility] CC: Kay Caldwell MD [address] [place] [phone] documented in this encounter Plan of Treatment Upcoming Encounters Date Type Department Care Team (Late st Contact Info) Description 09/18/2024 10:30 AM EST Office Visit Hematology/Oncology at [address] [phone] Erica Yi [address] [place] [address] 09/18/2024 11:00 AM EST Infusion Hematology Oncology at [address] [phone] 10/01/2024 3:45 PM EST Office Visit Functional Catholic Program at [place] [address] [address] [place] [address] Gene Julien Jr., PT 12/23/2024 8:00 AM EST Appointment XRay at [address] [place] [phone] River Ochoa MD [address] [place], [place] [address] 01/21/2025 1:00 PM EDT Office Visit Radiation Oncology at [address] [phone] Tory Salazar PA [facility] HEMATOLOGY AND ONCOLOGY [place] [address] documented as of this encounter Procedures Procedure Name Priority Date/Time Associated Diagnosis Comments Injection Pv Facet Joint Lumbar/Sacral Single Level (45294) 12/11/2022 1:07 PM EST Lumbar foraminal stenosis INJECTION, FACET JOINT,W\FLUORO, LUMBAR, SINGLE Routine 12/11/2022 12:30 PM EST Lumbar foraminal stenosis documented in this encounter Visit Diagnoses Diagnosis Spondylosis of lumbar region without myelopathy or radiculopathy- Primary Lumbosacral spondylosis without myelopathy Lumbar foraminal stenosis Spinal stenosis, lumbar region, without neurogenic claudication documented in this encounter Active and Recently Administered Medications Times are shown in EST. PRN Medication Order 12/09/2022 12/10/2022 12/11/2022 BUpivacaine (pf) (Marcaine) (5 mg/mL) 0.5% injection (CANCELED) ONCE PRN, Starting on Sat12/11/22 at 1321, Until Sat12/11/22 at 1538, Intra-Operative (Intra-Procedure), Routine 1321 (Given - Provid er: Kaushik Ayala MD - Comment: right lumbar MBB) iohexoL (Omnipaque) (240 mg/mL) solution (CANCELED) ONCE PRN, Starting on Sat12/11/22 at 1330, Until Sat12/11/22 at 1538, Intra-Operative (Intra-Procedure), Routine 1330 (Given - Provid er: Kaushik Ayala MD - Comment: right lumbar MBB) documented in this encounter Care Teams Electric Meter Tester Shop Relationship Specialty Start Date End Date Kay Caldwell MD [address] [place] [address] [place] [address] PCP - General Family Medicine 08/15/22 documented as of this encounter
--- OUTSIDE RECORDS SUMMARY | 2024-09-18 01:20 | XMS_ITS | Encounter Summary ---
Author Organization [facility] [place] [address] Care Team Providers Care Transcribing Operators Supervisor Name Role Phone Kay Caldwell MD Primary Care Provider [phone] Reason for Visit * Consultation (Routine) - Closed Specialty Diagnoses / Procedures Referred By Contac t Referred To Contact [facility] Diagnoses Spondylosis of lumbar region without myelopathy or radiculopathy Procedures NC GROUP THERAPEUTIC PROCEDURES NC GROUP THERAPEUTIC PROCEDURES HC OCCUPATIONAL THERAPY EVALUATION MODERATE COMPLEXITY PRO ESTABLISHED PATIENT LEVEL 4 HC ESTABLISHED PATIENT LEVEL 4 PRO ESTABLISHED PATIENT LEVEL 3 HC ESTABLISHED PATIENT LEVEL 3 PRO FUNCTIONAL FAITH PROGRAM LECTURE, GROUP HC THERAPEUTIC ACTIVITY EA 15 MIN HC PHYSICAL THERAPY RE-EVALUATION EST PLAN CARE HC PHYSICAL PERFORMANCE TEST W REPORT 15 MIN Jazmín Santiago, CORPORATE EVENT PLANNER [facility] PAIN MANAGEMENT [address] [address] [place] [address] Referral ID Status Reason Start Date Expiration Date Visits Requested Visits Authorized [id number] Closed Functional Restorative Program 03/25/2023 03/24/2024 52 52 Encounter Details Date Type Department Care Team (Late st Contact Info) Description 04/15/2023 9:30 AM EDT Office Visit Functional Confucianist Program at [facility] [address] [place] [address] Gene Julien Jr., PT Spondylosis [...] Sign Reading Time Taken Comments Blood Pressure 159/68 04/15/2023 8:48 AM EDT Pulse - - Temperature - - Respiratory Rate - - Oxygen Saturation - - Inhaled Oxygen Concentration - - Weight - - Height - - Body Mass Index - - documented in this encounter Miscellaneous Notes * Initial Evaluation - Gene Julien Jr., PT - 04/15/2023 9:30 AM EDT Functional Confucianist Program (Day 1) Physical Therapy Examination Personal Function 3 Month Goals Vocational: None Identified Recreational: Be able to resume luis class and exercise routine; Be able to walk for longer periods of time. Daily Living: Be able to stand for longer periods to cook a meal, Be able to do housework includingvacuuming; Be able to garden; Be able to lift and carry heavier groceries, laundry basket. Ms. Garduno reports that the chief complaint requiring rehabilitation is right sided flank, and low back pain. 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 Prior treatments included Lyrica, Gabapentin, Lidocaine Patches, Steroid injections,Cluneal Nerve Injection, physical therapy (Ángel Therapy), low dose naltrexone, heat, topical creams, CBD, Icy Hot Patches, occasional tylenol. Further diagnostic testing is not planned. Additional medical procedures are not planned. 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 Title Endurance and Flexibility Test Results: Reported Tolerance (minutes) First Day of FRP: End of FRP: 1 Month Follow-up: 3 Month Follow-up (optional): Sittin Standin Walkin Flexibility (degrees): Neck: First Day of FRP: End of FRP: 1 Month Follow-up: 3 Month Follow-up (optional): Bending Forward: 60 Bending Back: 45 Turning Right: 45 Turning Left: 45 Tilting Right: 25 Tilting Left: 25 Low Back: First Day of FRP: End of FRP: 1 Month Follow-up: 3 Month Follow-up (optional): Bending Forward: 55 Bending Back: 10 Straight Leg Raise Right: 65 Straight Leg Raise Left: 65 Straight Leg Raise Pelvic: Treadmill First Day of FRP: End of FRP: 1 Month Follow-up: 3 Month Follow-up (optional): MET Level: Heart Rate: MET Level: Heart Rate: MET Level: Heart Rate: MET Level: Heart Rate: Treadmill Endurance: 7 132 Reason for Stopping (if applicable): Short of breath (hands on rails) Sensation: Light touch intact. Reflexes Right Left Tricep normal normal Brachioradialis normal normal Patella normal normal Achilles normal normal AROM (degrees) shoulder flexion right WNL, left WNL. UE Strength Right Left Shoulder abduction 5/5 5/5 Shoulder ER 5/5 5/5 Elbow flexion 5/5 5/5 Elbow extension 5/5 5/5 Wrist ulnar deviation 5/5 5/5 Finger abduction 5/5 5/5 LE Strength Right Left Hip flexion 5/5 5/5 Knee extension 5/5 5/5 Dorsiflexion 5/5 5/5 Hallux extension 5/5 5/5 Plantarflexion 5/5 5/5 Neural tension screening: Seated straight leg raise right Positive, left Positive. Assessment Josselyn Garduno has moderate range of motion deficits and moderate strength deficits with baseline physical testing. Treadmill testing shows poor tolerance for endurance activities. Posture and gait observations reveal marked antalgic deviations. Individual program to be developed slowly over thefirst two weeks of program with initial focus on symptom management strategies. FRP Goals for Physical Therapy will focus on regaining functional status and functional goals stated above, but objectively Josselyn will have: Improved flexibility, strength, and cardiovascular fitness, the ability to self manage symptoms, and adequately monitor and progress an individualized HEP. Plan Josselyn will start with FRP for functional and restorative training. Home exercise instruction will compliment daily conditioning. See enclosed FRP protocol for further details. Total time for testin minutes documented in this encounter Plan of Treatment Upcoming Encounters Date Type Department Care Team (Late st Contact Info) Description 09/18/2024 10:30 AM EST Office Visit Hematology/Oncology at [address] [phone] Erica Yi, CORPORATE EVENT PLANNER[address] MEDICAL ONCOLOGY [place], [place] [address] 09/18/2024 11:00 AM EST Infusion Hematology Oncology at [address] [phone] 10/01/2024 3:45 PM EST Office Visit Functional Confucianist Program at [place] [address] [place] [address] Gene Julien Jr., PT 12/23/2024 8:00 AM EST Appointment XRay at [address] [place] [address] River Ochoa MD [address] [place], [place] [address] 01/21/2025 1:00 PM EDT Office Visit Radiation Oncology at [address] [phone] Tory Salazar PA [facility] DR HEMATOLOGY [place] [address] documented as of this encounter Visit Diagnoses Diagnosis Spondylosis of lumbar region without myelopathy or radiculopathy Lumbosacral spondylosis without myelopathy Lumbar foraminal stenosis Spinal stenosis, lumbar region, without neurogenic claudication documented in this encounter Care Teams Transcribing Operators Supervisor Relationship Specialty Start Date End Date Kay Caldwell MD [address] [place] [address] [address] [place], [place] [address] PCP - General Family Medicine 08/15/22 documented as of this encounter
--- OUTSIDE RECORDS SUMMARY | 2024-09-18 01:20 | XMS_ITS | Encounter Summary ---
Author Organization [facility] [place] [address] Care Team Providers Care Gymnastics Instructor Name Role Phone Kay Caldwell MD Primary Care Provider [phone] Reason for Visit * Reason Comments Back Pain * Consultation (Routine) - Closed Specialty Diagnoses / Procedures Referred By Contac t Referred To Contact Pain and Spine Center Diagnoses Lumbar foraminal stenosis Spondylosis of lumbar region without myelopathy or radiculopathy Procedures HC PHYSICAL PERFORMANCE TEST W REPORT 15 MIN PRO ESTABLISHED PATIENT LEVEL 4 HC ESTABLISHED PATIENT LEVEL 4 Jazmín Santiago APRN [facility] [place] [address] [facility] [place] [address] Referral ID Status Reason Start Date Expiration Date Visits Requested Visits Authorized [id number] Closed Functional Restorative Program 03/15/2023 03/14/2024 2 2 Encounter Details Date Type Department Care Team (Late st Contact Info) Description 03/25/2023 10:00 AM EDT Office Visit Functional Pentecostal Program at [facility] [address] [place] [phone] Ariana Brock, OT Lumbar foraminal stenosis Social History Tobacco Use Types Packs/Day Years Used Date Smoking Tobacco: Former Smokeless Tobacco: Never Sex and Gender Information Value Date Recorded Sex Assigned at Not on file Gender Identity Not on file Sexual Orientation Not on file documented as of this encounter Miscellaneous Notes * Initial Evaluation - Delmy Ariana J, OT - 03/25/2023 10:00 AM EDT GOALS AND PHYSICAL CAPACITIES ASSESSMENT Ms. Garduno was [facility] to assist with determining candidacy foradmission into the Functional Pentecostal Program. Ms. 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 Personal Function 3 Month Goals Vocational: None Identified Recreational: Be able to resume luis class and exercise routine; Be able to walk for longer periods of time. Daily Living: Be able to stand for longer periods to cook a meal, Be able to do housework includingvacuuming; Be able to garden; Be able to lift and carry heavier groceries, laundry basket. PHYSICAL EVALUATION Resting Vital Signs: BP 138/56 HR 64 Gait: normal. AROM (degrees): Lumbar Spine Forward bend (0-90) 15 Backward bend (0-30) 10 SLR Right (0-90) 85 SLR Left (0-90) 85 Cervical Spine Flexion (0-60) 65 Extension (0-50) 40 Rot. Right (0-80) 80 Rot. Left (0-80) 80 Lat. Flex Right (0-45) 40 Lat. Flex Left (0-45) 35 Endurance Testing: Modified Ramp Treadmill Test Minutes Completed 4:00 % Grade 10 Speed (mph) 2.1 MET/HR 109 Reason for Stop Point: incline Functional Strength Testing: PILE Testing lbs/HR Floor To Waist 20 / 110 Waist to Shoulder 10 / 95 Reason for Stop Point: Some back discomfort and weight for waist to shoulder During physical testing, participation level cooperative and consistent. Demand Levels of Functional Recovery Goals Current Capacity Limit / Physical Demand Level (PDL) Vocational: None Recreational: Medium Daily Living: Medium Light The PDL listed above is based on today's physical performance screening tests. More comprehensive physical testing integrated with clinical findings would be required to derive an accurate work capacity. ASSESSMENT OF FUNCTIONAL TESTING: Based on today???s physical capacity findings Josselyn Garduno is a candidate for a multidisciplinary intensive physical rehabilitation program with behavioral support. There are physical limitations in gait, range of motion, walking endurance, functional strength, and overall physical capacities that interfere with basic functional tasks and hinder quality of life. I believe that this can improve with functional rehabilitation. PLAN: Pending medical clearance, Josselyn has been recommended for the upcoming Functional Pentecostal Program (FRP) that includes 4 weeks of intensive PT/OT followed by a minimum of 6 months commitment to self care exercise for improving and maintaining physical capacities. We discussed logistics, she received her packet about local lodging/transportation. Her and her discussed that they will be driving back and forth. Discussed that this might restrict some of her progress, however they are planning to go forward with driving back and forth. We also discussed that we will be in touch for [facility]. Total time for testin minutes documented in this encounter Plan of Treatment Upcoming Encounters Date Type Department Care Team (Late st Contact Info) Description 09/18/2024 10:30 AM EST Office Visit Hematology/Oncology at [address] [phone] Erica Yi APRN [address] [place] [address] [place] [address] 09/18/2024 11:00 AM EST Infusion Hematology Oncology at [address] [phone] 10/01/2024 3:45 PM EST Office Visit Functional Pentecostal Program at [facility] [address] [place] [address] Gene Julien Jr., PT 12/23/2024 8:00 AM EST Appointment XRay at [address] [place] [address] River Ochoa MD [address] [place] [address] 01/21/2025 1:00 PM EDT Office Visit Radiation Oncology at [address] [phone] Tory Salazar PA [facility] HEMATOLOGY [place] [address] documented as of this encounter Procedures Procedure Name Priority Date/Time Associated Diagnosis Comments OT PLAN OF CARE CERT/RE-CERT Routine 03/25/2023 10:26 AM EDT Lumbar foraminal stenosis documented in this encounter Visit Diagnoses Diagnosis Lumbar foraminal stenosis Spinal stenosis, lumbar region, without neurogenic claudication documented in this encounter Care Teams Gymnastics Instructor Relationship Specialty Start Date End Date Kay Caldwell MD [address] [place] [address] [address] [place], [place] [address] PCP - General Family Medicine 08/15/22 documented as of this encounter
--- OUTSIDE RECORDS SUMMARY | 2024-09-18 01:20 | XMS_ITS | Encounter Summary ---
Author Organization [place] [address] Care Team Providers Care Computer System Validation Specialist Name Role Phone Kay Caldwell MD Primary Care Provider [phone] Encounter Details Date Type Department Care Team (Late st Contact Info) Description 04/15/2023 Notes Only [facility] [place] [phone] Etienne Leger MSW Social History Tobacco Use Types Packs/Day Years Used Date Smoking Tobacco: Former Smokeless Tobacco: Never Sex and Gender Information Value Date Recorded Sex Assigned at Not on file Gender Identity Not on file Sexual Orientation Not on file documented as of this encounter Progress Notes * Etienne Leger MSW - 04/15/2023 11:59 PM EDT OFFICE of CARE MANAGEMENT CCM [employer] met with Ms. Garduno during her first day of the Functional Taoism Program, 04/15/23-05/10/23. Ms. Garduno stated her spouse will transport her in personal transportation throughout the program. Ms. Garduno provided Community lodging options for reference, per Ms. Garduno's request. However, Ms. Garduno plan to travel to and from home daily throughout the course of the program. Ms. Garduno identified her spouse as her support system stated there are no identified barriers at this time. GUADALUPE Lai documented in this encounter Plan of Treatment Upcoming Encounters Date Type Department Care Team (Late st Contact Info) Description 09/18/2024 10:30 AM EST Office Visit Hematology/Oncology at [address] [phone] Erica Yi APRN [address] [place] [address] DR MEDICAL ONCOLOGY [place], [place] [address] 09/18/2024 11:00 AM EST Infusion Hematology Oncology at [address] [phone] 10/01/2024 3:45 PM EST Office Visit Functional Taoism Program [place] [address] [place] [address] Gene Julien Jr., PT 12/23/2024 8:00 AM EST Appointment XRay at [address] [place] [address] River Ochoa MD [address] [place] [address] 01/21/2025 1:00 PM EDT Office Visit Radiation Oncology at [address] [phone] Tory Salazar PA [facility] [place] [address] documented as of this encounter Visit Diagnoses Not on filedocumented in this encounter Care Teams Computer System Validation Specialist Relationship Specialty Start Date End Date Kay Caldwell MD [address] [place] [address] [address] [place] [address] PCP - General Family Medicine 08/15/22 documented as of this encounter
--- OUTSIDE RECORDS SUMMARY | 2024-09-18 01:20 | XMS_ITS | Encounter Summary ---
Author Organization [facility] [place] [address] Care Team Providers Care Oracle Iam Consultant Name Role Phone Kay Caldwell MD Primary Care Provider [phone] Reason for Referral * Consultation (Routine) - Closed Specialty Diagnoses / Procedures Referred By Contac t Referred To [facility] Pain and Spine Center Diagnoses Spondylosis of lumbar region without myelopathy or radiculopathy Procedures LA GROUP THERAPEUTIC PROCEDURES LA GROUP THERAPEUTIC PROCEDURES HC OCCUPATIONAL THERAPY EVALUATION MODERATE COMPLEXITY PRO ESTABLISHED PATIENT LEVEL 4 HC ESTABLISHED PATIENT LEVEL 4 PRO ESTABLISHED PATIENT LEVEL 3 HC ESTABLISHED PATIENT LEVEL 3 PRO FUNCTIONAL JAIN PROGRAM LECTURE, GROUP HC THERAPEUTIC ACTIVITY EA 15 MIN HC PHYSICAL THERAPY RE-EVALUATION EST PLAN CARE HC PHYSICAL PERFORMANCE TEST W REPORT 15 MIN Jazmín Stuart APRN [facility] [place] [address] [address] [place] [address] Referral ID Status Reason Start Date Expiration Date Visits Requested Visits Authorized [id number] Closed Functional Restorative Program 03/25/2023 03/24/2024 52 52 Reason for Visit * Consultation (Routine) - Closed Specialty Diagnoses / Procedures Referred By Contac t Referred To [facility] Pain and Spine Center Diagnoses Lumbar foraminal stenosis Spondylosis of lumbar region without myelopathy or radiculopathy Procedures HC PHYSICAL PERFORMANCE TEST W REPORT 15 MIN PRO ESTABLISHED PATIENT LEVEL 4 HC ESTABLISHED PATIENT LEVEL 4 Jazmín Stuart APRN [facility] [place] [address] [facility] [place] [address] Referral ID Status Reason Start Date Expiration Date Visits Requested Visits Authorized [id number] Closed Functional Restorative Program 03/15/2023 03/14/2024 2 2 Encounter Details Date Type Department Care Team (Latest Contact Info) Description 03/25/2023 11:30 AM EDT Office Visit [facility] [place] [address] Jazmín Stuart [facility] [place] [address] Spondylosis of lumbar region without myelopathy or radiculopathy (Primary Dx) Social History Tobacco Use Types Packs/Day Years Used Date Smoking Tobacco: Former Smokeless Tobacco: Never Sex and Gender Information Value Date Recorded Sex Assigned at Not on file Gender Identity Not on file Sexual Orientation Not on file documented as of this encounter Last Filed Vital Signs Vital Sign Reading Time Taken Comments Blood Pressure 129/47 03/25/2023 11:26 AM EDT Pulse 70 03/25/2023 11:26 AM EDT Temperature - - Respiratory Rate - - Oxygen Saturation 99% 03/25/2023 11:26 AM EDT Inhaled Oxygen Concentration - - Weight - - Height - - Body Mass Index - - documented in this encounter Progress Notes * Jazmín Stuart APRN - 03/25/2023 11:30 AM EDT Images from the original note were not included. GOALS AND PHYSICAL CAPACITIES ASSESSMENT ? Chief complaint requiring rehabilitation: right sided flank, and low back pain. S: Josselyn is being seen today for medical clearance for the Functional Nondenominational program, a graduated exercise program aimed at The patient achieving herfunctional goals, despite having chronic pain. Her pain pattern is described as right sided flank, and low back pain., She has had treatments inc ludingLyrica, Gabapentin, Lidocaine Patches, Steroid injections,Cluneal Nerve Injection, physical therapy (Ángel Therapy), low dose naltrexone, heat, topical creams, CBD, Icy Hot Patches, occasional tylenol. ?? 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 She reports there is not an active worker's compensation claim and/or there is not a personal injury claim associated with this injury. ? The patient's current goals are : Personal Function 3 Month Goals ?? Vocational: None Identified Recreational: Be able to resume luis class and exercise routine; Be able to walk for longer periods of time. Daily Living: Be able to stand for longer periods to cook a meal, Be able to do housework includingvacuuming; Be able to garden; Be able to lift and carry heavier groceries, laundry basket. Activity limiting health problems:history of total knee replacements, Osteoarthritis ?? Further diagnostic testing is not planned. Additional medical procedures are not planned. ?? Brief physical examination: Resting Vital Signs: BP 138/56 HR 64 Heart rate regular without murmur gallop, breath sounds clear to auscultation, strength, sensation,reflexes symmetrical and normal. O: Please see Ms. conklin's note of today for details of the physical testing and current functional Level. In general the patients current level of functioning is in the light demand level andgoals are in the medium demand level. We did review her response to the low-dose naltrexone at the present time she has not noticed a difference. A: There is a gap between Her goals and abilities.This was a counseling visit for 30 minutes out of30 talking about symptom management and functional recovery, reviewing the content of FRP, and logistics specific to participation including, travel, lodging and exercise and activity planning . We have mutually decided to proceed with the following plan. Jazmín Stuart, MS, DIRECTOR OF SPORTS PERFORMANCE-BC, PHLEBOTOMY TECHNICIAN Nurse practitioner Pain management [facility] P: Josselyn is a candidate for functional mu-ism. She is here accompanied by her . She meets the criteria for entry. She has no current difficulties and we reviewed her medications and allergies. She has no pending procedures. Her is planning to drive her every day and pick her up. He is quite adamant about this. They have met with Pat Leger our health social work professor about lodging etc. and the patient has Medicare and Ms. Leger is helping with evaluating if there is any co-pay.All questions were answered today. She would like to come to April but at the present time there does not appear to be an opening but she will continue and will be on a wait list. She will either comein April or May. . documented in this encounter Miscellaneous Notes * Addendum Note - Jazmín Stuart APRN - 03/25/2023 11:30 AM EDTAddended by: JAZMÍN STUART on: 03/25/2023 12:37 PM Modules accepted: Orders documented in this encounter Plan of Treatment Upcoming Encounters Date Type Department Care Team (Late st Contact Info) Description 09/18/2024 10:30 AM EST Office Visit Hematology/Oncology at [address] [phone] Erica Yi [address] MEDICAL ONCOLOGY [place], [place] [phone] 09/18/2024 11:00 AM EST Infusion Hematology Oncology at [address] [phone] 10/01/2024 3:45 PM EST Office Visit Functional Nondenominational Program at [place] [address] [place] [address] Gene Julien Jr., PT 12/23/2024 8:00 AM EST Appointment XRay at [address] [place] [address] River Ochoa MD [address] [place] [address] 01/21/2025 1:00 PM EDT Office Visit Radiation Oncology at [address] [phone] Tory Salazar PA [facility] HEMATOLOGY [place] [address] Scheduled Referrals Name Type Priority Associated Diagnoses Orde r Schedule Referral to Pain and Spine Center (Internal only) Outpatient Referral Routine Spondylosis of lumbar region without myelopathy or radiculopathy Ordered: 03/25/2023 documented as of this encounter Visit Diagnoses Diagnosis Spondylosis of lumbar region without myelopathy or radiculopathy- Primary Lumbosacral spondylosis without myelopathy documented in this encounter Care Teams Oracle Iam Consultant Relationship Specialty Start Date End Date Kay Caldwell MD [address] [place] [address] [place] [address] PCP - General Family Medicine 08/15/22 documented as of this encounter
--- OUTSIDE RECORDS SUMMARY | 2024-09-18 01:20 | XMS_ITS | Encounter Summary ---
Author Organization Formerly [facility] [place] [address] Care Team Providers Care Ceramics Machine Operator Name Role Phone Kay Caldwell MD Primary Care Provider [phone] Reason for Visit * Reason Comments Back Pain * Consultation (Routine) - Closed Specialty Diagnoses / Procedures Referred By Contac t Referred To Contact [facility] Diagnoses Spondylosis of lumbar region without myelopathy or radiculopathy Procedures NJ GROUP THERAPEUTIC PROCEDURES [place] GROUP THERAPEUTIC PROCEDURES HC OCCUPATIONAL THERAPY EVALUATION MODERATE COMPLEXITY PRO ESTABLISHED PATIENT LEVEL 4 HC ESTABLISHED PATIENT LEVEL 4 PRO ESTABLISHED PATIENT LEVEL 3 HC ESTABLISHED PATIENT LEVEL 3 PRO FUNCTIONAL CONGREGATION PROGRAM LECTURE, GROUP HC THERAPEUTIC ACTIVITY EA 15 MIN HC PHYSICAL THERAPY RE-EVALUATION EST PLAN CARE HC PHYSICAL PERFORMANCE TEST W REPORT 15 MIN Jazmín Santiago, BRUNO [facility] [address] [facility] Fr [address] [place] [address] Referral ID Status Reason Start Date Expiration Date Visits Requested Visits Authorized [id number] Closed Functional Restorative Program 03/25/2023 03/24/2024 52 52 Encounter Details Date Type Department Care Team (Latest Contact Info) Description 04/19/2023 11:00 AM EDT Office Visit Functional Gnosticist Program at [facility] [address] [place] [address] Ariana Brock, OT Spondylosis of [...] - Therapy - Ariana Brock, OT - 04/19/2023 11:00 AM EDT P Occupational Therapy Note [facility] Day 5 Protocol Subjective: Ms. Garduno returns today for a scheduled follow up appointment with [facility]. She reports overall feeling good, sore. She did work with physical therapy individually this morning and that stretch/exercise has helped. Objective: Refer to [facility] protocol for details and explanation of [...] minutes of mindfulness meditation activity focusing on breathing by Marine Terry. Participated in 15 minutes of unguarded beach ball volleyball activity. Provided an overview of a home exercise program for her to keep up with over the weekend to maintain progress to date, focusing on walking, stretching, functional lifting, and mindfulness meditation. Assigned weekend homework of deciding when and where she will exercise each day and assigned targetlifting goals for the upcoming weekend. Home exercise program to include once daily functional lifting of forward bend x 20 repetitions and squat x 5 repetitions. Will compliment with once daily walking session, twice daily stretching sessions, and 5-10 minutes of mindfulness meditation focusing onbreathing. Weekend Lifting Numbers Type of lift Weight Forward Bend 10 Squat 18 Please see goals in initial OT evaluation [...] form with all functional conditioning exercises. She will benefit from pacing for symptom management. She actively participated with [...] AM EST Office Visit Hematology/Oncology at [address] [phone] Erica Yi APRN [address] [place] [address] [place] [address] 09/18/2024 11:00 AM EST Infusion Hematology Oncology at [address] [phone] 10/01/2024 3:45 PM EST Office Visit Functional Gnosticist Program at [facility] [address] [place] [address] Gene Julien JrDerrell, PT 12/23/2024 8:00 AM EST Appointment XRay at [address] [place] [address] River Ochoa MD [address] [place] [address] 01/21/2025 1:00 PM EDT Office Visit Radiation Oncology at [address] [phone] Tory Salazar PA [facility] HEMATOLOGY [place] [address] documented as of this encounter Visit Diagnoses Diagnosis Spondylosis of lumbar region without myelopathy or radiculopathy Lumbosacral spondylosis without myelopathy documented in this encounter Care Teams Ceramics Machine Operator Relationship Specialty Start Date End Date Kay Caldwell MD [address] [place] [address] [place] [address] PCP - General Family Medicine 08/15/22 documented as of this encounter
--- OUTSIDE RECORDS SUMMARY | 2024-09-18 01:20 | XMS_ITS | Encounter Summary ---
Author Organization [facility] [place] [address] Care Team Providers Care Counselor Aide Name Role Phone Kay Caldwell MD Primary Care Provider [phone] Reason for Visit * Reason Comments Back Pain * Consultation (Routine) - Closed Specialty Diagnoses / Procedures Referred By Contac t Referred To Contact [facility] Sp[facility] Center Diagnoses Spondylosis of lumbar region without myelopathy or radiculopathy Procedures FL GROUP THERAPEUTIC PROCEDURES FL GROUP THERAPEUTIC PROCEDURES HC OCCUPATIONAL THERAPY EVALUATION MODERATE COMPLEXITY PRO ESTABLISHED PATIENT LEVEL 4 HC ESTABLISHED PATIENT LEVEL 4 PRO ESTABLISHED PATIENT LEVEL 3 HC ESTABLISHED PATIENT LEVEL 3 PRO FUNCTIONAL BAPTISM PROGRAM LECTURE, GROUP HC THERAPEUTIC ACTIVITY EA 15 MIN HC PHYSICAL THERAPY RE-EVALUATION EST PLAN CARE HC PHYSICAL PERFORMANCE TEST W REPORT 15 MIN Jazmín Santiago, BRUNO [facility] [place] [address] [facility] Fr [address] [place] [address] Referral ID Status Reason Start Date Expiration Date Visits Requested Visits Authorized [id number] Closed Functional Restorative Program 03/25/2023 03/24/2024 52 52 Encounter Details Date Type Department Care Team (Latest Contact Info) Description 04/15/2023 11:45 AM EDT Office Visit Functional Taoism Program at [facility] [address] [place] [address] Ariana Brock, OT Spondylosis of lumbar region without myelopathy or radiculopathy Social History Tobacco Use Types Packs/Day Years Used Date Smoking Tobacco: Former Smokeless Tobacco: Never Sex and Gender Information Value Date Recorded Sex Assigned at Not on file Gender Identity Not on file Sexual Orientation Not on file documented as of this encounter Miscellaneous Notes * Initial Evaluation - Ariana Brock OT - 04/15/2023 11:45 AM EDT Functional Taoism Program (Day 1) Group #: [id number] Occupational Therapy Evaluation Problem List: Unclear Vocational Goal Inability to do usual and customary job and daily activities secondary to decreased lifting strength, functional ROM, limited positional tolerances, fear of re-injury and inability to manage pain. Ms. Garduno lacks effective pain management strategies to use on the job, in the community, and athome. Decreased ability to participate in activities of daily living and home maintenance. 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 Subjective: Ms. Garduno reports that the primary reason for seeking Occupational Therapy services through the Functional Taoism Program is right sided flank, and low back pain. 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 Prior treatments included Lyrica, Gabapentin, Lidocaine Patches, Steroid injections, Cluneal Nerve Injection, physical therapy (Ángel Therapy), low dose naltrexone, heat, topical creams, CBD, Icy Hot Patches, occasional tylenol. Ms. Garduno reports a long standing history of low back pain and her right sided flank pain started prior toa bowel resection over two years ago. Activity limiting health problems include history of total knee replacements, Osteoarthritis Ms. Garduno reports using the following pain management strategies: Low Dose Naltrexone, icy hot patch. 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 Garduno reports the following return to work plan: Retired. Do you plan to return to work after the program: No, retired Job to return to: No, retired She identifies the following barriers to return to work: N/a She is not working with a Vocational Rehabilitation counselor at this time. Ms. Garduno reports receiving the following benefits: n/a Self-Care (ADL & IADL) & Leisure Activities: Based on the occupational performance interview of the Cuban Occupational Performance Measure (COPM), Ms. Garduno reports Moderate limitationsin self-care and leisure activities. She reports most difficulty with positional tolerances for recreational and daily living tasks and lifting/carrying heavier items. Cuban Occupational Performance Measure Results - 3 Month Occupational Goals: Occupational Goals FRP Day 1 P S Current Status: End of Program Current Status: 1-month Follow-up P S Work/Productive Activity: None Identified - - Recreation/Leisure: Be able to resume [email or web address] class and exercise routine 1 1 Be able to walk for longer periods (at least 1-2 hours) 2 1 Be able to garden 4 5 Daily Living (ADL, IADL): Be able to stand to cook a meal, going up and down stairs more easily 3 2 Be able to do housework including vacuuming 1 1 Be able to bend over to reach items off ground, lower shelf 2 1 Be able to lift and carry heavier groceries, laundry basket 3 2 Total 16 13 Total Mean score 2.28 1.85 Mean score Change from Day 1 (??2 point change is clinically significant) Lifting Goal: 40 lbs Current Lifting lbs Current Lifting lbs *Velazco: P=Performance Score S=Satisfaction with Performance Score ASSESSMENT of OCCUPATIONAL PERFORMANCE Physical Capacity Test Results: Lifting: (pounds/heart rate) First Day of FRP End of Program 1 Month Follow-Up 3 Month Follow-Up Repetitive Floor to Waist 72 Repetitive Waist to Shoulder 1-Time Maximum 25 2-Handed Carry - 50 ft 20 Work Demand Level Light The results of this testing must be integrated with clinical findings and other observations to derive a final assessment of work capacity. Assessment: Ms. Garduno is unable to fully participate in recreational, and home-based activities because of decreased functional strength, decreased AROM, decreased endurance, limited positional tolerances, fear of re-injury, and fear of increased pain. She will benefit from participating in a functional conditioning program designed to increase functional strength, flexibility, and endurance in order to meet functional goals. FRP Goals: While working towards the group home (3 month) functional goals listed above, Ms. Garduno will accomplish the following short term goals during the 4- week intensive rehabilitation program.Ms. Garduno will: 1. Demonstrate physical capacities consistent with a Light-Medium work demand level. 2. Demonstrate increased functional strength by lifting 40 pounds floor to waist and 15-20 pounds waist to shoulder in order to meet work and home lifting goals. 3. Increase her positional tolerances to the level needed for work and home activities. 4. Implement self-care and relapse prevention strategies during the program and at home to control pain. Plan: 1. Functional conditioning 2 times daily to increase physical capacities and allow Ms. Garduno to meet demands of recreation and home. 2. Individual counseling to develop individualized strategies for self-care pain management, relapse prevention 3. Daily stretching, relaxation training and walking to increase functional tolerances and allow Ms. Garduno to meet demands of recreation and daily activities to meet occupational goals. 4. Therapeutic activities to increase ability to move quickly and tolerate unguarded movements. 45 minutes were spent today to interview Ms. Garduno and test physical capacities. documented in this encounter Plan of Treatment Upcoming Encounters Date Type Department Care Team (Late st Contact Info) Description 09/18/2024 10:30 AM EST Office Visit Hematology/Oncology at [address] [phone] Erica Yi APRN [address] [place] [address] [place] [address] 09/18/2024 11:00 AM EST Infusion Hematology Oncology at [address] [phone] 10/01/2024 3:45 PM EST Office Visit Functional Taoism Program at [place] [address] [place] [address] Gene Julien Jr., PT 12/23/2024 8:00 AM EST Appointment XRay at [address] [place] [address] River Ochoa MD [address] [place] [address] 01/21/2025 1:00 PM EDT Office Visit Radiation Oncology at [address] [phone] Tory Salazar PA [facility] [place] [address] documented as of this encounter Visit Diagnoses Diagnosis Spondylosis of lumbar region without myelopathy or radiculopathy Lumbosacral spondylosis without myelopathy documented in this encounter Care Teams Counselor Aide Relationship Specialty Start Date End Date Kay Caldwell MD [address] [place] [address] [place] [address] PCP - General Family Medicine 08/15/22 documented as of this encounter
--- OUTSIDE RECORDS SUMMARY | 2024-09-18 01:20 | XMS_ITS | Encounter Summary ---
Author Organization [facility] [place] [address] Care Team Providers Care Prosthetic Makeup Designer Name Role Phone Kay Caldwell MD Primary Care Provider [phone] Encounter Details Date Type Department Care Team (Latest Contact Info) Description 04/17/2023 Travel Social History Tobacco Use Types Packs/Day [...] AM EST Office Visit Hematology/Oncology at [address] [phone] Erica Yi APRN [address] [place] [address] DR MEDICAL ONCOLOGY [place], [place] [address] 09/18/2024 11:00 AM EST Infusion Hematology Oncology at [address] [phone] 10/01/2024 3:45 PM EST Office Visit Functional Confucianist Program at [facility] [address] [place] [address] Gene Julien Jr., PT 12/23/2024 8:00 AM EST Appointment XRay at [facility] [address] River Ochoa MD [address] [place] [address] 01/21/2025 1:00 PM EDT Office Visit Radiation Oncology at [address] [phone] Tory Salazar PA [facility] [place] [address] documented as of this encounter Visit Diagnoses Not on filedocumented in this encounter Care Teams Prosthetic Makeup Designer Relationship Specialty Start Date End Date Kay Caldwell MD [address] [place] [address] [place] [address] PCP - General Family Medicine 08/15/22 documented as of this encounter
--- OUTSIDE RECORDS SUMMARY | 2024-09-18 01:20 | XMS_ITS | Encounter Summary ---
Author Organization Formerly [facility] [place] [address] Care Team Providers Care Exhibition Designer Name Role Phone Kay Caldwell MD Primary Care Provider [phone] Reason for Visit * Auth/Cert (Routine) Specialty Diagnoses / Procedures Referred By Contac t Referred To Contact Diagnoses lumbar spondylosis Procedures PRO INJECTION PV FACET JOINT LUMBAR/SACRAL SINGLE LEVEL INJECTION, FACET JOINT, W\FLUORO, LUMBAR, SINGLE (WRVU 1.52) Jose Tai MD [facility] [place] [address] [facility] Referral ID Status Reason Start Date Expiration Date Visits Re quested Visits Authorized [id number] 1 1 Encounter Details Date Type Department Care Team (Late st Contact Info) Description 12/11/2022 1:15 PM EST - 12/11/2022 1:45 PM EST [place] [address] Jose Tai MD [facility] [address] INJECTION, FACET JOINT, W\FLUORO, LUMBAR, SINGLE (WRVU 1.52) Social History Tobacco Use Types Packs/Day Years [...] daily. HERBAL DRUGS ORAL Take by mouth. Cloud Wort, lemon balm, passiflora, leonorus, hypericum ACETAMINOPHEN [...] right lumbar area. PAIN LEVEL AT REST 8/10 PAST MEDICAL HISTORY: No past medical history on file. PAST SURGICAL HISTORY: Past Surgical History: Procedure Laterality Date ??? PRO INJ, FORAMEN, L/S, 1 LEVEL Right 10/09/2022 INJECTION, ANESTHETIC AGENT AND/OR STEROID, TRANSFORAMINAL EPIDURAL, LUMBAR OR SACRAL, SINGLE LEVEL(WRVU 1.9) performed by Cosmo Blanco MD at [facility] PAIN MGMT MSO ??? PRO INJ, FORAMEN, L/S, 1 LEVEL Right 11/09/2022 INJECTION, ANESTHETIC AGENT AND/OR STEROID, TRANSFORAMINAL EPIDURAL, LUMBAR OR SACRAL, SINGLE LEVEL(WRVU 1.9) performed by Jose Tai MD at [facility] PAIN MGMT MSO ??? PRO INJ, FORAMEN, L/S, ADDL LEVELS Right 10/09/2022 INJECTION, ANESTHETIC AGENT AND/OR STEROID, TRANSFORAMINAL EPIDURAL, LUMBAR OR SACRAL, EACH ADDITIONAL LEVEL (WRVU 1) performed by Cosmo Blanco MD at [facility] PAIN MGMT MSO ??? PRO INJECTION DX/THER SBST INTRLMNR LMBR/SAC W/IMG GDN Right 11/21/2022 INJECTION, EPIDURAL, LUMBAR OR SACRAL (CAUDAL), WITH IMAGING GUIDANCE (WRVU 1.8) performed by Jose Tai MD at [facility] PAIN MGMT MSO ALLERGIES: Opioids - morphine analogues MEDICATIONS: Medications 11/29/22 1032 Medication Sig Taking? multivitamin (THERAGRAN) Tablet Take 1 tablet by mouth daily. ergocalciferol, vitamin D2, (VITAMIN D ORAL) Take by mouth. HERBAL DRUGS ORAL Take by mouth. Cloud Wort and other ingredients (pt unsure) ACETAMINOPHEN [...] them as documented. Jose Tai MD, MS Habitat Biologist of Anesthesiology [employer] [address] [address] / [facility] documented in this encounter Miscellaneous Notes * Op Note - Jose Tai MD - 12/11/2022 1:20 PM EST Pain Management Operative Note Patient Name: Josselyn Garduno : [id number] MR#: [id number] Case Date: 12/11/2022 Surgeon: Surgeon(s) and Role: [...] Medicine Fellow [facility] [place] [address] / I have seen and examined the patient and reviewed the fellow's above history and I agree with the details as written. I was the attending physician supervising the fellow in the above care and I was present with the fellow for the entire procedure. Jose Tai MD, MS Habitat Biologist of Anesthesiology [facility] [address] [phone] / [facility] CC: Kay Caldwell MD [address] [place] [address] [place] [address] documented in this encounter Plan of Treatment Upcoming Encounters Date Type Department Care Team (Late st Contact Info) Description 09/18/2024 10:30 AM EST Office Visit Hematology/Oncology at [address] [phone] Erica Yi APRN [address] [place] [address] DR MEDICAL ONCOLOGY [place], [place] [address] 09/18/2024 11:00 AM EST Infusion Hematology Oncology at [address] [phone] 10/01/2024 3:45 PM EST Office Visit Functional Mu-Ism Program at [facility] [address] [place] [address] Gene Julien Jr., PT 12/23/2024 8:00 AM EST Appointment XRay at [address] [place] [address] River Ochoa MD [address] [place], [place] [address] 01/21/2025 1:00 PM EDT Office Visit Radiation Oncology at [address] [phone] Tory Salazar PA [facility] DR HEMATOLOGY AND ONCOLOGY [place] [address] documented as of this encounter Procedures Procedure Name Priority Date/Time Associated Diagnosis Comments Injection Pv Facet Joint Lumbar/Sacral Single Level (57175) 12/11/2022 1:07 PM EST Lumbar foraminal stenosis INJECTION, FACET JOINT,W\FLUORO, LUMBAR, SINGLE Routine 12/11/2022 12:30 PM EST Lumbar foraminal stenosis documented in this encounter Visit Diagnoses Diagnosis Spondylosis of lumbar region without myelopathy or radiculopathy- Primary Lumbosacral spondylosis without myelopathy Lumbar foraminal stenosis Spinal stenosis, lumbar region, without neurogenic claudication Lumbar foraminal stenosis Spinal stenosis, lumbar region, without neurogenic claudication documented in this encounter Administered Medications Inactive Administered Medications - up to 3 most recent administrations Medication Order MAR Action Action Date Dose Rate Site BUpivacaine (pf) (Marcaine) (5 mg/mL) 0.5% injection ONCE PRN, Starting on Sat12/11/22 at 1321, Until Sat12/11/22 at 1538, Intra-Operative (Intra-Procedure), Routine Given 12/11/2022 1:21 PM EST 2.25 mLs iohexoL (Omnipaque) (240 mg/mL) solution ONCE PRN, Starting on Sat12/11/22 at 1330, Until Sat12/11/22 at 1538, Intra-Operative (Intra-Procedure), Routine Given 12/11/2022 1:30 PM EST 1 mL documented in this encounter Active and Recently [...] MBB) documented in this encounter Care Teams Exhibition Designer Relationship Specialty Start Date End Date Kay Caldwell MD [address] [place] [address] [place] [address] PCP - General Family Medicine 08/15/22 documented as of this encounter
--- OUTSIDE RECORDS SUMMARY | 2024-09-18 01:20 | XMS_ITS | Encounter Summary ---
[place] [address] Care Team Providers Care School Speech Language Pathologist Name Role Phone Kay Caldwell MD Primary Care Provider [phone] Encounter Details Date Type Department Care Team (Late st Contact Info) Description 03/15/2023 Telephone [place] [phone] Ariana Brock, OT Social History Tobacco Use Types Packs/Day Years Used Date Smoking Tobacco: Former Smokeless Tobacco: Never Sex and Gender Information Value Date Recorded Sex Assigned at Not on file Gender Identity Not on file Sexual Orientation Not on file documented as of this encounter Miscellaneous Notes * Telephone Encounter - Ariana Brock OT - 03/15/2023 10:24 AM EDT Summary: Functional Sabianist Program Received incoming call from Mr. Casey Garduno regarding his 's upcoming GAP/Medical Clearance appointment for SaturdayMarch 25. He had a few questions regarding the visits, what they would entailespecially the medical clearance appointment with Jazmín Santiago APRN as they just had a visit withher. I answered all there questions regarding the visit, stating they would have enough time between GAP and medical clearance to drive up to the hospital and check in [facility]. He was appreciative of my time and answering his questions. Arielle Freeman, FRP administrative and program specialist is planning to send out information regarding FRP, local lodging and other resources for them to look over prior to the GAP/Med Clearance appointment. documented in this encounter Plan of Treatment Upcoming Encounters Date Type Department Care Team (Late st Contact Info) Description 09/18/2024 10:30 AM EST Office Visit Hematology/Oncology at [address] [phone] Erica Yi, HEDDLER [address] [place] [address] DR MEDICAL ONCOLOGY [place], [place] [address] 09/18/2024 11:00 AM EST Infusion Hematology Oncology at [address] [phone] 10/01/2024 3:45 PM EST Office Visit Functional Sabianist Program at [address] [facility] [place] [address] Gene Julien Jr., PT 12/23/2024 8:00 AM EST Appointment XRay at [address] [place] [place] [address] River Ochoa MD [address] [place], [place] [address] 01/21/2025 1:00 PM EDT Office Visit Radiation Oncology at [address] [phone] Tory Salazar PA [facility] DR HEMATOLOGY [place] [address] documented as of this encounter Visit Diagnoses Not on filedocumented in this encounter Care Teams School Speech Language Pathologist Relationship Specialty Start Date End Date Kay Caldwell MD [address] [place] [address] [address] [place], [place] [address] PCP - General Family Medicine 08/15/22 documented as of this encounter
--- OUTSIDE RECORDS SUMMARY | 2024-09-18 01:20 | XMS_ITS | Encounter Summary ---
[place] [address] Care Team Providers Care Head Of Store Operations Name Role Phone Kay Caldwell MD Primary Care Provider +1 [phone] Encounter Details Date Type Department Care Team (Late st Contact Info) Description 04/03/2023 Telephone Functional Zoroastrianism Program at [facility] [address] [place] [address] Arielle Freeman Social History Tobacco Use Types Packs/Day Years Used Date Smoking Tobacco: Former Smokeless Tobacco: Never Sex and Gender Information Value Date Recorded Sex Assigned at Not on file Gender Identity Not on file Sexual Orientation Not on file documented as of this encounter Miscellaneous Notes * Telephone Encounter - Arielle Freeman - 04/03/2023 8:21 AM EDT Reason for call: To determine confirmation of enrollment in the upcoming Functional Zoroastrianism Program for dates 04/15 - 05/10 Invitation Packet Received: Yes, all questions answered Preferred Name/Nickname: Josselyn Pain Education: N/A Arrival Time for Day 1: 8:45 am Covid-19 Vax Status: Yes, Booster Yes Schedule Cleared: Yes Days unable to attend: 0 Are you interested in a Hybrid option? No At this time we do not anticipate any hybrid participation however, in the event that you are unable to be on site or are pending a covid test result we would like to know the following information: Hybrid Capability: Not ideal [facility] Account: Active Wifi: Not reliable Device: desktop The patient was read the following statements to ensure the same discussion for all participants: Your invitation packet contains the Hybrid Equipment Check List - please review this and make note of what you have around your home so that the team of providers know what you have available when itis time to create your home program. FRP days start at 8am, please arrive at 7:45am each day to ensure that you are ready to start at 8am. If you are late or absent for multiple days, the team may discuss discontinuing the program with you until you are able to participate fully. In light of the ever changing Covid-19 infection rate, we ask that in the week leading up to the start of program you please be aware and cautious of your activities, as it can affect you, other participants and staff members in the program. The safety of you and our staff is of utmost importance to the Functional Zoroastrianism Program (FRP). documented in this encounter Plan of Treatment Upcoming Encounters Date Type Department Care Team (Late st Contact Info) Description 09/18/2024 10:30 AM EST Office Visit Hematology/Oncology at [address] [phone]i [address] MEDICAL ONCOLOGY [place], [place] [id number] 09/18/2024 11:00 AM EST Infusion Hematology Oncology at [address] [phone] 10/01/2024 3:45 PM EST Office Visit Functional Zoroastrianism Program at [place] [address] [place] [address] Gene Julien Jr., PT 12/23/2024 8:00 AM EST Appointment XRay at [address] [place] [phone] River Ochoa MD [address] [place] [address] 01/21/2025 1:00 PM EDT Office Visit Radiation Oncology at [address] [phone] Tory Salazar PA [facility] [place] [address] documented as of this encounter Visit Diagnoses Not on filedocumented in this encounter Care Teams Head Of Store Operations Relationship Specialty Start Date End Date Kay Caldwell MD [address] [place] [address] [place] [address] PCP - General Family Medicine 08/15/22 documented as of this encounter
--- OUTSIDE RECORDS SUMMARY | 2024-09-18 01:20 | XMS_ITS | Encounter Summary ---
Author Organization [facility] [place] [address] Care Team Providers Care A Operator Name Role Phone Kay Caldwell MD Primary Care Provider [phone] [phone] Encounter Details Date Type Department Care Team (Latest Contact Info) Description 04/15/2023 Travel Social History Tobacco Use Types Packs/Day [...] AM EST Office Visit Hematology/Oncology at [address] [phone] Erica Yi APRN [address] [place] [address] DR MEDICAL ONCOLOGY [place], [place] [address] 09/18/2024 11:00 AM EST Infusion Hematology Oncology at [address] [phone] 10/01/2024 3:45 PM EST Office Visit Functional Jain Program at [facility] [address] [place] [address] Gene Julien Jr., PT 12/23/2024 8:00 AM EST Appointment XRay at [facility] [address] River Ochoa MD [address] [place] [address] 01/21/2025 1:00 PM EDT Office Visit Radiation Oncology at [address] [phone] Tory Salazar PA [facility] DR HEMATOLOGY [place] [address] documented as of this encounter Visit Diagnoses Not on filedocumented in this encounter Care Teams A Operator Relationship Specialty Start Date End Date Kay Caldwell MD [address] [place] [address] [place] [address] PCP - General Family Medicine 08/15/22 documented as of this encounter
--- OUTSIDE RECORDS SUMMARY | 2024-09-18 01:20 | XMS_ITS | Encounter Summary ---
Author Organization [facility] [place] [address] Care Team Providers Care Supervisor Dumping Name Role Phone Kay Caldwell MD Primary Care Provider [phone] Reason for Visit * Consultation (Routine) - [...] HC ESTABLISHED PATIENT LEVEL 3 PRO FUNCTIONAL GNOSTICISM PROGRAM LECTURE, GROUP HC THERAPEUTIC ACTIVITY EA 15 MIN HC PHYSICAL THERAPY RE-EVALUATION EST PLAN CARE HC PHYSICAL PERFORMANCE TEST W REPORT 15 MIN Jazmín Santiago LABORER PETROLEUM REFINERY [facility] [place] [address] [facility] Fr [address] [place] [address] Referral ID Status Reason Start Date Expiration Date Visits Requested Visits Authorized [id number] Closed Functional Restorative Program 03/25/2023 03/24/2024 52 52 Encounter Details Date Type Department Care Team (Late st Contact Info) Description 04/22/2023 10:00 AM EDT Office Visit Functional Samaritan Program at [facility] [address] [place] [address] Bailey Fox APRN [facility] [place] [address] Lumbar spondylosis; Radiculopathy of cervical region; Radiculopathy of lumbar region; Lumbar foraminal stenosis; Cluneal neuropathy Social History Tobacco Use Types Packs/Day Years Used Date Smoking Tobacco: Former Smokeless Tobacco: Never Sex and Gender Information Value Date Recorded Sex Assigned at Not on file Gender Identity Not on file Sexual Orientation Not on file documented as of this encounter Progress Notes * Bailey Fox APRN - 04/22/2023 10:00 AM EDT [id number] Josselyn Garduno 04/20/2023 Chief complaint requiring rehabilitation:lower back and leg pain FUNCTIONAL GNOSTICISM PROGRAM REHABILTIATION TRAINING LECTURE Title: SPINAL ANATOMY, IMAGING, SURGERY, REHABILITATION AND MEDICATIONS Presenter: Bailey Fox APRN This is a one-hour discussion meant to enhance future encounters with health care providers. Patient expectations of pain relief and diagnosis were matched with a review of differential diagnosis andthe anatomy of spinal pain. Diagnostic tools and their capacities and limitations were reviewed. Absence of clear surgically correctable diagnoses, natural history of acute episode recovery and the nature of disability from chronic pain were reviewed. The role of quota based, goal oriented rehabilitation was reviewed in this context. The medication portion of the discussion began with Listing the patients??? current and prior chiefcomplaint-related medications, placing each in its pharmacological category. The personal experiences of the patients in terms of side effects and benefits were reviewed and discussed with referencesto the biochemical and clinical effects if the drugs. The lack of curative impact of these medications was stressed. The difficulties in determining optimal doses for analgesics were discussed in thecontext of the varying needs of patients and regulatory issues involved. The importance of prescribing in the framework of functional goals was reviewed as opposed to focusing entirely on symptom relief. documented in this encounter Plan of Treatment Upcoming Encounters Date Type Department Care Team (Late st Contact Info) Description 09/18/2024 10:30 AM EST Office Visit Hematology/Oncology at [address] [phone] Erica Yi APRN [address] [place] [address] 09/18/2024 11:00 AM EST Infusion Hematology Oncology at [address] [phone] 10/01/2024 3:45 PM EST Office Visit Functional Samaritan Program at [facility] [address] [place] [address] Gene Julien Jr., PT 12/23/2024 8:00 AM EST Appointment XRay at [address] [place] [address] River Ochoa MD [address] [place], [place] [address] 01/21/2025 1:00 PM EDT Office Visit Radiation Oncology at [address] [phone] Tory Salazar PA [facility] DR HEMATOLOGY [place] [address] documented as of this encounter Visit Diagnoses Diagnosis Lumbar spondylosis Lumbosacral spondylosis without myelopathy Radiculopathy of cervical region Brachial neuritis or radiculitis nos Radiculopathy of lumbar region Thoracic or lumbosacral neuritis or radiculitis, unspecified Lumbar foraminal stenosis Spinal stenosis, lumbar region, without neurogenic claudication Cluneal neuropathy documented in this encounter Care Teams Supervisor Dumping Relationship Specialty Start Date End Date Kay Caldwell MD [address] [place] [address] [address] [place], [place] [address] PCP - General Family Medicine 08/15/22 documented as of this encounter
--- OUTSIDE RECORDS SUMMARY | 2024-09-18 01:20 | XMS_ITS | Encounter Summary ---
[place] [address] Care Team Providers Care Prism Measurer Name Role Phone Kay Caldwell MD Primary Care Provider [phone] Encounter Details Date Type Department Care Team (Late st Contact Info) Description 03/14/2023 Telephone [place] [phone] Toshia Phillips RN Social History Tobacco Use Types Packs/Day Years Used Date Smoking Tobacco: Former Smokeless Tobacco: Never Sex and Gender Information Value Date Recorded Sex Assigned at Not on file Gender Identity Not on file Sexual Orientation Not on file documented as of this encounter Miscellaneous Notes * Telephone Encounter - Toshia Phillips RN - 03/14/2023 9:39 AM EDT Outgoing call to [facility] PT in regards to obtaining last office visit note from 03/05 for Jazmín Santiago APRN. PT stated they will send it over today. documented in this encounter Plan of Treatment Upcoming Encounters Date Type Department Care Team (Late st Contact Info) Description 09/18/2024 10:30 AM EST Office Visit Hematology/Oncology at [address] [phone] Erica Yi APRN [address] [place] [address] [place] [address] 09/18/2024 11:00 AM EST Infusion Hematology Oncology at [address] [phone] 10/01/2024 3:45 PM EST Office Visit Functional Orthodoxy Program at [facility] [address] [place] [address] [place] [address] Gene Julien Jr., PT 12/23/2024 8:00 AM EST Appointment XRay at [address] [place] [address] River Ochoa MD [address] [place], [place] [address] 01/21/2025 1:00 PM EDT Office Visit Radiation Oncology at [address] [phone] Tory Salazar PA [facility] DR HEMATOLOGY [place] [address] documented as of this encounter Visit Diagnoses Not on filedocumented in this encounter Care Teams Prism Measurer Relationship Specialty Start Date End Date Kay Caldwell MD [address] [place] [address] [address] [place], [place] [address] PCP - General Family Medicine 08/15/22 documented as of this encounter
--- OUTSIDE RECORDS SUMMARY | 2024-09-18 01:20 | XMS_ITS | Encounter Summary ---
Author Organization [facility] [place] [address] Care Team Providers Care Color Maker Name Role Phone Kay Caldwell MD Primary Care Provider [phone] Reason for Visit * Reason Comments Back [...] W REPORT 15 MIN Jazmín Santiago, BRUN[facility] [place] [address] [facility] Fr [address] [place] [address] Referral ID Status Reason Start Date Expiration Date Visits Requested Visits Authorized [id number] Closed Functional Restorative Program 03/25/2023 03/24/2024 52 52 Encounter Details Date Type Department Care Team (Latest Contact Info) Description 04/18/2023 11:00 AM EDT Office Visit Functional Advent Program at [facility] [address] [place] [address] Ariana Brock, OT Spondylosis of [...] - Therapy - Ariana Brock, OT - 04/18/2023 11:00 AM EDT P Occupational Therapy Note [facility] Day 4 Protocol Subjective: Ms. Garduno returns today for a scheduled follow up appointment with [facility]. She reports she is feeling sore all over this morning and tired. Objective: Refer to [facility] protocol for details and explanation of each activity. Ms. Garduno participated in the following activities: See individual flow sheets for weight progressions. Increased resistance levels of functional conditioning exercises according to personal recovery goals. Instructed in proper body mechanics for safe lifting. Monitored and instructed in proper form during functional conditioning exercises and provided cues for safety and efficiency. Group of 5 Functional Therapy: 1. AM Session of functional [...] minutes of mindfulness meditation activity focusing on Whole body breathing. Participated in a 15 minute outdoor walk including 0.3 miles, down one flight of stairs. Reviewed pain neuroscience education and answered any questions/concerns. Please see goals in initial OT evaluation [...] functional conditioning exercises. She will benefit from continued exposure to pacing strategies to assist with symptom management. She actively [...] AM EST Office Visit Hematology/Oncology at [address] [phone] Erica Yi APRN [address] [place] [address] [place] [address] 09/18/2024 11:00 AM EST Infusion Hematology Oncology at [address] [phone] 10/01/2024 3:45 PM EST Office Visit Functional Advent Program at [place] [address] [place] [address] Gene Julien Jr., PT 12/23/2024 8:00 AM EST Appointment XRay at [address] [place] [phone] River Ochoa MD [address] [place] [address] 01/21/2025 1:00 PM EDT Office Visit Radiation Oncology at [address] [phone] Tory Salazar PA [facility] DR HEMATOLOGY [place] [address] documented as of this encounter Visit Diagnoses Diagnosis Spondylosis of lumbar region without myelopathy or radiculopathy Lumbosacral spondylosis without myelopathy documented in this encounter Care Teams Color Maker Relationship Specialty Start Date End Date Kay Caldwell MD [address] [place] [address] [address] [place] [address] PCP - General Family Medicine 08/15/22 documented as of this encounter
--- OUTSIDE RECORDS SUMMARY | 2024-09-18 01:20 | XMS_ITS | Encounter Summary ---
Author Organization [facility] [place] [address] Care Team Providers Care Washateria Attendant Name Role Phone Kay Caldwell MD Primary Care Provider [phone] Reason for Referral * Physical Therapy (Routine) - Closed Specialty Diagnoses / Procedures Referred By Contac t Referred To Contact Physical Therapy Diagnoses Lumbar foraminal stenosis Jazmín Santiago APRN [facility] [place] [address] Referral ID Status Reason Start Date Expiration Date V isits Requested Visits Authorized [id number] Closed Evaluate and Treat 11/29/2022 05/28/2023 10 10 Reason for Visit * Reason Comments Follow-up LESI Encounter Details Date Type Department Care Team (Late st Contact Info) Description 11/29/2022 10:15 AM EST Office Visit [place] [address] Jazmín Santiago APRN [facility] [place] [address] Lumbar foraminal stenosis (Primary Dx) Social History Tobacco Use Types Packs/Day Years Used Date Smoking Tobacco: Former Smokeless Tobacco: Never Tobacco Cessation:Counseling Given: Not Answered Sex and Gender Information Value Date Recorded Sex Assigned at Not on file Gender Identity Not on file Sexual Orientation Not on file documented as of this encounter Last Filed Vital Signs Vital Sign Reading Time Taken Comments Blood Pressure 152/82 11/29/2022 10:09 AM EST Pulse 80 11/29/2022 10:09 AM EST Temperature - - Respiratory Rate - - Oxygen Saturation 99% 11/29/2022 10:09 AM EST Inhaled Oxygen Concentration - - Weight 89.8 kg (198 lb) 11/29/2022 10:09 AM EST Height 160 cm (5' 3) 11/29/2022 10:09 AM EST Body Mass Index 35.07 11/29/2022 10:09 AM EST documented in this encounter Progress Notes * Jazmín Santiago, MANAGER BUDGET - 11/29/2022 10:15 AM EST [facility] TELE-HEALTH FOLLOW UP Date of Consultation: November 29, 2022 Referring Provider: Dmitri Schultz Reason for request of consultation: Chief Complaint: [...] [place] and during [place]. She had a cluneal nerve injection done [...] up with Josselyn. She drove down from [facility] with her . She had a [...] She has been doing physical therapy at [facility] but has not had any spine, Ángel PT. PAIN ASSESSMENT: Description: Right flank painn to abdomen, dull ache Other associated symptoms:not associated Left posterior tingling to ankle Alleviating factors: staying still Aggravating factors:movement Lateral bending , forward bending, twisting Pain today:7-8 Best in past week:3-4/10 Worst in past week: 8/10 No flowsheet data found. 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 multivitamin (THERAGRAN) Tablet Take 1 tablet by mouth daily. ??? ergocalciferol, vitamin D2, (VITAMIN D ORAL) Take by mouth. ??? HERBAL DRUGS ORAL Take by mouth. [place] Wort and other ingredients (pt unsure) ??? ACETAMINOPHEN ORAL Take 2 tablets by mouth as needed. ??? lisinopriL (Zestril) 10 mg Tablet ??? omeprazole (PriLOSEC) 20 mg Capsule, Delayed Release(E.C.) ??? simvastatin (Zocor) 20 mg Tablet nightly. Allergies & Adverse Reactions: Opioids - morphine analogues Problem List: Patient Active Problem List Diagnosis Code ??? 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 [...] 1.9) performed by Cosmo Blanco MD at [facility] ??? PRO INJ, FORAMEN, L/S, 1 LEVEL Right 11/09/2022 INJECTION, ANESTHETIC AGENT AND/OR STEROID, TRANSFORAMINAL EPIDURAL, LUMBAR OR SACRAL, SINGLE LEVEL(WRVU 1.9) performed by Jose Tai MD at [facility] ??? PRO INJ, FORAMEN, L/S, ADDL LEVELS Right 10/09/2022 INJECTION, ANESTHETIC AGENT AND/OR STEROID, TRANSFORAMINAL EPIDURAL, LUMBAR OR SACRAL, EACH ADDITIONAL LEVEL (WRVU 1) performed by Cosmo Blanco MD at [facility] ??? PRO INJECTION DX/THER SBST INTRLMNR LMBR/SAC W/IMG GDN Right 11/21/2022 INJECTION, EPIDURAL, LUMBAR OR SACRAL (CAUDAL), WITH IMAGING GUIDANCE (WRVU 1.8) performed by Jose Tai MD at [facility] Review of Systems: [...] strength, sensation, reflexes in the lower extremities. Her examination was updated today. She does seem to have some discomfort with Kemps maneuver particularly on the right Imaging & Other Studies: Images of the lumbar spine were reviewed with her and a copy of the report was photocopied and willbe placed in her chart. In short, there is multilevel degenerative changes with foraminal stenosis on the right at L2-3 which is consistent with her symptoms. She also has some facet arthropathy present Assessment: Ms. Garduno is a 77 y.o. year-old female who presents to the [facility] accompanied by her . She had a procedure recently with Dr. Davis and I did discuss with her that she may still see some improvement of her symptoms up to 14 days post procedure. I am giving her a referral to a local physical therapist, Giovanna Israel who might help her with her mechanical self-care and we are going to try a lumbar medial branch block at L2-3. I discussed this with Dr. Davis. We will follow-up in person to see if she is better 3 weeks or so after the procedure. Thank you Dr. Schlutz for allowing my participation in Josselyn Garduno's care. Jazmín Santiago, , DEICER REPAIRER PNEUMATIC-, MANAGER BUDGET Nurse practitioner Pain management [facility] documented in this encounter Plan of Treatment Upcoming Encounters Date Type Department Care Team (Late st Contact Info) Description 09/18/2024 10:30 AM EST Office Visit Hematology/Oncology at [address] [phone] Erica Yi APRN [address] [place] [address] [place] [address] 09/18/2024 11:00 AM EST Infusion Hematology Oncology at [address] [phone] 10/01/2024 3:45 PM EST Office Visit Functional Jehovah'S Witness Program at [facility] [address] [place] [address] Gene Julien Jr., PT 12/23/2024 8:00 AM EST Appointment XRay at [address] [place] [phone] River Ochoa MD [address] [place] [address] 01/21/2025 1:00 PM EDT Office Visit Radiation Oncology at [address] [phone] Tory Salazar PA [facility] DR [place] [address] Scheduled Referrals Name Type Priority Associated Diagnoses Orde r Schedule Referral to Physical Therapy Outpatient Referral Routine Lumbar foraminal stenosis Ordered: 11/29/2022 documented as of this encounter Visit Diagnoses Diagnosis Lumbar foraminal stenosis- Primary Spinal stenosis, lumbar region, without neurogenic claudication documented in this encounter Care Teams Washateria Attendant Relationship Specialty Start Date End Date Kay Caldwell MD [address] [place] [address] [place] [address] PCP - General Family Medicine 08/15/22 documented as of this encounter
--- OUTSIDE RECORDS SUMMARY | 2024-09-18 01:20 | XMS_ITS | Encounter Summary ---
Author Organization [facility] [place] [address] Care Team Providers Care Fondant Cooker Name Role Phone Kay Caldwell MD Primary Care Provider [phone] Reason for Visit * Consultation (Routine) - [...] HC ESTABLISHED PATIENT LEVEL 3 PRO FUNCTIONAL JEW PROGRAM LECTURE, GROUP HC THERAPEUTIC ACTIVITY EA 15 MIN HC PHYSICAL THERAPY RE-EVALUATION EST PLAN CARE HC PHYSICAL PERFORMANCE TEST W REPORT 15 MIN Jazmín Santiago, [employer] [facility] [place] [address] Htr Frp [address] [place] [address] Referral ID Status Reason Start Date Expiration Date Visits Requested Visits Authorized [id number] Closed Functional Restorative Program 03/25/2023 03/24/2024 52 52 Encounter Details Date Type Department Care Team (Late st Contact Info) Description 04/16/2023 8:00 AM EDT Office Visit Functional Anabaptist Program at [facility] [address] [place] [address] Gene Julien Jr., PT Spondylosis [...] Therapy - Gene Julien JrDerrell, PT - 04/16/2023 8:00 AM EDT FRP Physical Therapy Note FRP Day 2 Warm Up Exercises Protocol Subjective: Josselyn Garduno returns today for a scheduled follow up appointment with FRP; She reports feeling good today and being ready for treatment to begin. Objective: Treatment Received: Group of 6 Initial Instruction in form with modifications as necessary for: 30 Minutes Standing Warm Up Exercises High March Heel-kick March Squat Step Back Toe Touch Knees to Hands B Forward Lunges Side Lunges 30 Minutes Supine, Sidelying, Prone Mat Exercises (1 x 10 each) Lower trunk rotation Straight Leg Raises Curl Up/Crunch Bridge Lower Abdominal Heel Taps B Sidelying Hip Abduction Prone Scap Retraction Prone Hip Extension Press Ups Introduction to gym routine including dumbbells, weight machines, and thomas chair. Clinician demonstration provided with cues on form and common compensations made during each individual exercise. Exercises reviewed are as follows: Dumbbells - Bicep curls, shoulder raises to 90 degrees of flexion, straight leg deadlift, and pronereverse flies on plinth. x10 reps for each Weight Machines - Lat pull downs, single arm seated row, leg press, chest press, knee extensions, and back extensions. x10 reps for each Thomas chair back extensions - instruction provided on options for rest position to either hang down, or to push back up into standing with assist from upper extremities depending on tolerance. 5 holds Patient participated in all exercises, with some challenges with positioning on the thomas chair. Patient participated in group presentation on pain neuroscience. Flow sheets reviewed for future use. Assessment: Josselyn Garduno was introduced to gym routine to be accomplished daily during programwith cues provided and followed.She demonstrates good comprehension of today's strengthening principles and initial exercise protocols. She actively participated with initiation of training [...] laundry basket. Length of visit: Participated in program physical activity from 8:00 a.m. through 11:00 a.m. today.During that time, a total of 60 minutes was spent instructing patients in appropriate form documented in this encounter Plan of Treatment Upcoming Encounters Date Type Department Care Team (Late st Contact Info) Description 09/18/2024 10:30 AM EST Office Visit Hematology/Oncology at [address] [phone] Erica Yi APRN [address] [place] [address] DR MEDICAL ONCOLOGY [place], [place] [address] 09/18/2024 11:00 AM EST Infusion Hematology Oncology at [address] [phone] 10/01/2024 3:45 PM EST Office Visit Functional Anabaptist Program [place] [address] [place] [address] Gene Julien Jr., PT 12/23/2024 8:00 AM EST Appointment XRay at [address] [place] [address] River Ochoa MD [address] [place] [address] 01/21/2025 1:00 PM EDT Office Visit Radiation Oncology at [address] [phone] Tory Salazar PA [facility] [place] [address] documented as of this encounter Visit Diagnoses Diagnosis Spondylosis of lumbar region without myelopathy or radiculopathy Lumbosacral spondylosis without myelopathy Lumbar foraminal stenosis Spinal stenosis, lumbar region, without neurogenic claudication documented in this encounter Care Teams Fondant Cooker Relationship Specialty Start Date End Date Kay Caldwell MD [address] [place] [address] [address] [place] [address] PCP - General Family Medicine 08/15/22 documented as of this encounter
--- OUTSIDE RECORDS SUMMARY | 2024-09-18 01:20 | XMS_ITS | Encounter Summary ---
[place] [address] Care Team Providers Care Burglary Investigator Name Role Phone Kay Caldwell MD Primary Care Provider [phone] Encounter Details Date Type Department Care Team (Late st Contact Info) Description 03/14/2023 Telephone [facility] [place] [phone] Etienne Leger MSW Social History Tobacco Use Types Packs/Day Years Used Date Smoking Tobacco: Former Smokeless Tobacco: Never Sex and Gender Information Value Date Recorded Sex Assigned at Not on file Gender Identity Not on file Sexual Orientation Not on file documented as of this encounter Miscellaneous Notes * Telephone Encounter - Etienne Leger MSW - 03/14/2023 2:35 PM EDT OFFICE of CARE MANAGEMENT [facility] Stage Driver spoke with Ms. Garduno by phone and she discussed her interest in participating in the Functional Hindu Program for June 03- June 28, 2023. Social Worked informed Ms. Garduno of the process and provided FRP Coordinator contact information, upon her request. Stage Driver provided information to the Interdisciplinary team. Ms. Garduno is currently receiving Physical Therapy services and asked Stage Driver how many Physical Therapy sessions are covered under her Medicare insurance? Stage Driver encouraged Ms. Garduno to contact the Billing office of where she receive services as a point of contact of how to obtainthat information. Ms. Garduno verbalized understanding and stated she would follow up accordingly. Ms. Garduno contacted Stage Driver and stated she is interested in attending the April 12-May 10, 2023 program. Stage Driver spoke with the FRP Coordinator, who spoke with Ms. Garduno regarding next steps. GUADALUPE Lai documented in this encounter Plan of Treatment Upcoming Encounters Date Type Department Care Team (Late st Contact Info) Description 09/18/2024 10:30 AM EST Office Visit Hematology/Oncology at [address] [phone] [address]i [address] MEDICAL ONCOLOGY [place], [place] [phone] 09/18/2024 11:00 AM EST Infusion Hematology Oncology at [address] [phone] 10/01/2024 3:45 PM EST Office Visit Functional Hindu Program at [address] [place] [address] Gene Julien Jr., PT 12/23/2024 8:00 AM EST Appointment XRay at [address] [place] [address] River Ochoa MD [address] [place], [place] [address] 01/21/2025 1:00 PM EDT Office Visit Radiation Oncology at [address] [phone] Tory Salazar PA [facility] [place] [address] documented as of this encounter Visit Diagnoses Not on filedocumented in this encounter Care Teams Burglary Investigator Relationship Specialty Start Date End Date Kay Caldwell MD [address] [place] [address] [address] [place] [address] PCP - General Family Medicine 08/15/22 documented as of this encounter
--- OUTSIDE RECORDS SUMMARY | 2024-09-18 01:20 | XMS_ITS | Encounter Summary ---
Author Organization [facility] [place] [address] Care Team Providers Care Real Estate Legal Assistant Name Role Phone Kay Caldwell MD Primary Care Provider [phone] Reason for Visit * Auth/Cert (Routine) Specialty Diagnoses / Procedures Referred By Contac t Referred To Contact Diagnoses lumbar spondylosis Procedures PRO INJECTION PV FACET JOINT LUMBAR/SACRAL SINGLE LEVEL INJECTION, FACET JOINT, W\FLUORO, LUMBAR, SINGLE (WRVU 1.52) Jose Tai MD [facility] [place] [address] [facility] Referral ID Status Reason Start Date Expiration Date Visits Re quested Visits Authorized [id number] 1 1 Encounter Details Date Type Department Care Team (Late Contact Info) Description 12/11/2022 1:15 PM EST Ancillary Procedure [place] [address] Jose Tai MD [facility] [place] [address] Social History Tobacco Use Types Packs/Day Years Used Date Smoking Tobacco: Former Smokeless Tobacco: Never Sex and Gender Information Value Date Recorded Sex Assigned at Not on file Gender Identity Not on file Sexual Orientation Not on file documented as of this encounter Plan of Treatment Upcoming Encounters Date Type Department Care Team (Late Contact Info) Description 09/18/2024 10:30 AM EST Office Visit Hematology/Oncology at [address] [phone] Erica Yi APRN [address] [place] [address] DR MEDICAL ONCOLOGY [place], [place] [phone] 09/18/2024 11:00 AM EST Infusion Hematology Oncology at [address] [phone] 10/01/2024 3:45 PM EST Office Visit Functional Yarsanism Program at [place] [address] [place] [address] Gene Julien Jr., PT 12/23/2024 8:00 AM EST Appointment XRay at [address] [place] [address] River Ochoa MD [address] [place], [place] [phone] 01/21/2025 1:00 PM EDT Office Visit Radiation Oncology at [address] [phone] Tory Salazar PA [facility] DR [place] [address] documented as of this encounter Procedures Procedure Name Priority Date/Time Associated Diagnosis Comments FILM LIBRARY STORAGE ONLY PAIN CLINIC C ARM Routine 12/11/2022 1:53 PM EST documented in this encounter Results * Film Library- Storage Only pain Clinic C-Arm (12/11/2022 1:53 PM EST) Narrative [facility] - 12/11/2022 1:53 PM EST See PACS for result report. Jose Tai MD IMG FILM LIBRARY ORD ERABLES [facility] [place] documented in this encounter Visit Diagnoses Not on filedocumented in this encounter Care Teams Real Estate Legal Assistant Relationship Specialty Start Date End Date Amorosa, Kay, MD [address] [place] [address] [address] [place], [place] [address] PCP - General Family Medicine 08/15/22 documented as of this encounter
--- OUTSIDE RECORDS SUMMARY | 2024-09-18 01:20 | XMS_ITS | Encounter Summary ---
Author Organization [facility] [place] [address] Care Team Providers Care Work Order Detailer Name Role Phone Kay Caldwell MD Primary Care Provider [phone] Encounter Details Date Type Department Care Team (Latest Contact Info) Description 12/14/2022 Travel Social History Tobacco Use Types Packs/Day [...] AM EST Office Visit Hematology/Oncology at [address] [phone] Erica Yi APRN [address] [place] [address] DR MEDICAL ONCOLOGY [place], [place] [address] 09/18/2024 11:00 AM EST Infusion Hematology Oncology at [address] [phone] 10/01/2024 3:45 PM EST Office Visit Functional Restorationism Program at [facility] [address] [place] [address] Gene Julien Jr., PT 12/23/2024 8:00 AM EST Appointment XRay at [facility] [place] [address] River Ochoa MD [address] [place] [address] 01/21/2025 1:00 PM EDT Office Visit Radiation Oncology at [address] [phone] [facility] DR HEMATOLOGY [place] [address] documented as of this encounter Visit Diagnoses Not on filedocumented in this encounter Care Teams Work Order Detailer Relationship Specialty Start Date End Date Kay Caldwell MD [address] [place] [address] [address] [place] [address] PCP - General Family Medicine 08/15/22 documented as of this encounter
--- OUTSIDE RECORDS SUMMARY | 2024-09-18 01:20 | XMS_ITS | Encounter Summary ---
Author Organization [facility] [place] [address] Care Team Providers Care Photoengraver Name Role Phone Kay Caldwell MD Primary Care Provider [phone] Reason for Visit * Reason Comments Back Pain * Consultation (Routine) - Closed Specialty Diagnoses / Procedures Referred By Contac t Referred To Contact [facility] Center Diagnoses Spondylosis of lumbar region without myelopathy or radiculopathy Procedures AK GROUP THERAPEUTIC PROCEDURES AK GROUP THERAPEUTIC PROCEDURES HC OCCUPATIONAL THERAPY EVALUATION [...] Santiago, [facility] [address] [facility] Fr [address] [place] [address] Referral ID Status Reason Start Date Expiration Date Visits Requested Visits Authorized [id number] Closed Functional Restorative Program 03/25/2023 03/24/2024 52 52 Encounter Details Date Type Department Care Team (Latest Contact Info) Description 04/17/2023 11:00 AM EDT Office Visit Functional Yarsani Program at [facility] [address] [place] [address] Ariana Brock, OT Spondylosis of [...] - Therapy - Ariana Brock, OT - 04/17/2023 11:00 AM EDT FRP Occupational Therapy Note [facility] Day 3 Protocol Subjective: Ms. Garduno returns today for a scheduled follow up appointment with [facility]. She reports feeling okay this morning, mostly sore and some increased pain and discomfort - right sided flank pain. Objective: Refer to [facility] protocol for details and explanation [...] Weighted Vacuum - x20 reps - PEGS 2 minutes/ 2 Functional Crate Lifting: - Floor to Waist (straight- leg lifting) = 2 x 10 reps - Waist to Shoulder = 2x10 reps - Occasional Lift (Squat Lift) = 1 x 5 reps Instructed in 3 minutes of mindfulness meditation activity focusing on breathing. Participated in a10 minute outdoor walk including 0.3 miles, down one flight of stairs, and 10 minutes of unguarded beach ball volleyball activity. Mindfulness Introduction: Introduced the concept of mindfulness meditation and it's application within the functional pentecostal program. Discussed it's use as an effective pain and stress management technique and discussed evidence for this approach. Assigned evening homework of completing a mindful ADL with a focus on paying attention to the 5 senses during a routine task. Discussed what to expect and general flow of formalized practices. Please see goals in initial OT evaluation [...] form with all functional conditioning exercises. She was cued to incorporate counteracting stretches which will be beneficial to her for symtpom management once weights progress with all exercises . She actively participated with initiation of training [...] AM EST Office Visit Hematology/Oncology at [address] [phone] Erica Yi APRN [address] [place] [address] MEDICAL ONCOLOGY [place], [place] [phone] 09/18/2024 11:00 AM EST Infusion Hematology Oncology at [address] [phone] 10/01/2024 3:45 PM EST Office Visit Functional Yarsani Program at [facility] [address] [place] [address] Gene Julien Jr., PT 12/23/2024 8:00 AM EST Appointment XRay at [address] [place] [address] River Ochoa MD [address] [place] [address] 01/21/2025 1:00 PM EDT Office Visit Radiation Oncology at [address] [phone] Tory Salazar PA [facility] HEMATOLOGY [place] [address] documented as of this encounter Visit Diagnoses Diagnosis Spondylosis of lumbar region without myelopathy or radiculopathy Lumbosacral spondylosis without myelopathy documented in this encounter Care Teams Photoengraver Relationship Specialty Start Date End Date Kay Caldwell MD [address] [place] [address] [address] [place] [address] PCP - General Family Medicine 08/15/22 documented as of this encounter
--- OUTSIDE RECORDS SUMMARY | 2024-09-18 01:20 | XMS_ITS | Encounter Summary ---
Author Organization [facility] [place] [address] Care Team Providers Care Patient Services Rep Name Role Phone Kay Caldwell MD Primary Care Provider [phone] Encounter Details Date Type Department Care Team (Latest Contact Info) Description 04/16/2023 Travel Social History Tobacco Use Types Packs/Day [...] AM EST Office Visit Hematology/Oncology at [address] [phone] Erica Yi APRN [address] [place] [address] DR MEDICAL ONCOLOGY [place], [place] [address] 09/18/2024 11:00 AM EST Infusion Hematology Oncology at [address] [phone] 10/01/2024 3:45 PM EST Office Visit Functional Samaritan Program at [facility] [address] [place] [address] Gene Julien Jr., PT 12/23/2024 8:00 AM EST Appointment XRay at [facility] [place] [address] River Ochoa MD [address] [place] [address] 01/21/2025 1:00 PM EDT Office Visit Radiation Oncology at [address] [phone] Tory Salazar PA [facility] DR [place] [address] documented as of this encounter Visit Diagnoses Not on filedocumented in this encounter Care Teams Patient Services Rep Relationship Specialty Start Date End Date Kay Caldwell MD [address] [place] [address] [address] [place] [address] PCP - General Family Medicine 08/15/22 documented as of this encounter
--- OUTSIDE RECORDS SUMMARY | 2024-09-18 01:20 | XMS_ITS | Encounter Summary ---
Author Organization [facility] [place] [address] Care Team Providers Care Director Of Recruitment And Admissions Name Role Phone Kay Caldwell MD Primary Care Provider [phone] Reason for Visit * Consultation (Routine) - Closed Specialty Diagnoses / Procedures Referred By Contac t Referred To [facility] Diagnoses Spondylosis of lumbar region without myelopathy or radiculopathy Procedures MS GROUP THERAPEUTIC PROCEDURES MS GROUP THERAPEUTIC PROCEDURES HC OCCUPATIONAL THERAPY EVALUATION MODERATE COMPLEXITY PRO ESTABLISHED PATIENT LEVEL 4 HC ESTABLISHED PATIENT LEVEL 4 PRO ESTABLISHED PATIENT LEVEL 3 HC ESTABLISHED PATIENT LEVEL 3 PRO FUNCTIONAL RASTAFARI PROGRAM LECTURE, GROUP HC THERAPEUTIC ACTIVITY EA 15 MIN HC PHYSICAL THERAPY RE-EVALUATION EST PLAN CARE HC PHYSICAL PERFORMANCE TEST W REPORT 15 MIN Jazmín Santiago ADJUSTO WRITER OPERATOR [facility] [place] [address] [facility] [address] [place] [address] Referral ID Status Reason Start Date Expiration Date Visits Requested Visits Authorized [id number] Closed Functional Restorative Program 03/25/2023 03/24/[phone] Encounter Details Date Type Department Care Team (Late st Contact Info) Description 04/19/2023 8:30 AM EDT Office Visit Functional Judaism Program at [facility] [address] [place] [address] Bailey Fox APRN [facility] [place] [address] Lumbar spondylosis; Radiculopathy of cervical region; Radiculopathy of lumbar region; Lumbar foraminal stenosis Social History Tobacco Use Types Packs/Day Years Used Date Smoking Tobacco: Former Smokeless Tobacco: Never Sex and Gender Information Value Date Recorded Sex Assigned at Not on file Gender Identity Not on file Sexual Orientation Not on file documented as of this encounter Progress Notes * Bailey Fox APRN - 04/19/2023 8:30 AM EDT Images from the original note were not included. [facility] Functional Judaism Program Admission Staff Meeting 04/19/2023 I, Arielle Freeman, am compiling the information for Bailey Fox APRN, to discuss and review with the patient. I met with Ms. Garduno for the entire 30 minutes today to discuss her admission and progress in the Functional Judaism Program as written in this note. We discussed medical progress, imaging, surgical decision making, current pain and functional status, compared that status to personal recovery goals, and established the plan of care accordingly as below. The chief complaint requiring rehabilitation is right sided flank, and low back pain. 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 Prior treatments included Lyrica, Gabapentin, Lidocaine Patches, Steroid injections, Cluneal Nerve Injection,physical therapy (Standard and Ángel Therapy), low dose naltrexone, heat, topical creams, CBD, Icy Hot Patches, occasional tylenol. Further diagnostic testing is not planned. Additional medical procedures are not planned. 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 Results of the Touch Pad Questionnaires You Filled out: [facility] DIS[facility]GE SUMMARY QUESTIONNAIRE TOTALS 04/15/2023 INSOMNIA SEVERITY INDEX (0-28) 3 (No clinically significant insomnia) Total PHQ-9 (0-27) 8 (Mild Depression) Central Sensitization Inventory (0-100) 39 (Mild) PDQ Total Score (0-150) 17 (Mild/moderate) ROSALINE-7 (0-21) 6 (Mild Anxiety) Facs Scoring (0-100) 25 (Mild) Visual Analog Scale (VAS) for Pain Score (0-10) 2.57 Pain over the last week rating score (0-10) 2.05 Title Endurance and Flexibility Test Results: Reported [...] applicable): Short of breath (hands on rails) FRP OT Objective Measures Physical Capacity Test Results: Lifting: (pounds/heart rate) First Day of FRP End of Program 1 Month Follow-Up 3 Month Follow-Up Repetitive Floor to Waist Repetitive Waist to Shoulder 1-Time Maximum 25 2-Handed Carry - 50 ft 20 Work Demand Level Light Your Functional Goals: Functional Goals- First Day of FRP: Progress Toward Goals- End of FRP: Progress Toward Goals- 1 Month Follow-up: Progress Toward Goals- 3 Month Follow-up (optional): Vocational: None Identified Recreational: Be able to resume Dolly class and exercise routine. Be able to walk for longer periods (at least 1-2 hours) Be able to garden Daily Living: Be able to stand to cook a meal, going up and down stairs more easily Be able to do housework including vacuuming Be able to bend over to reach items off ground, lower shelf Be able to lift and carry heavier groceries, laundry basket Lifting Goal: 40 lbs. PLAN: Functional Judaism Program. Cc: [address] [place] [address] Kay Caldwell MD [address] [place] [address] [place] [address] FUNCTIONAL RASTAFARI PROGRAM (FRP) PROTOCOL DESCRIPTION IN ORDER TO MAINTAIN APPROPRIATE SOCIAL DISTANCING DUE TO THE COVID-19 PANDEMIC, THE PROGRAM WILL BE A HYBRID MODEL OF ON-SITE DAYS WELL PARTICIPATION VIA TELEHEALTH SERVICES. NEED FOR ON-SITE VS. TELEHEALTH TREATMENT WILL BE DETERMINED BASED ON THE # OF PARTICIPANTS AND THE VARIED NEED FOR SPECIFIC ACCESS TO FRP EQUIPMENT. THE BASIC STRUCTURE AND COMPONENTS EACH DAY WILL BE CONSISTENT REGARDLESS OF LOCATION AND FULL PARTICIPATION WILL BE EXPECTED FROM ALL. DAY 1 TESTING The first day of FRP consists of testing by multiple disciplines to measure baseline values including: Visual Analog Pain Scale, FACS, CSI, ROSALINE-7, PDQ, JULIA, PHQ-9, PCL-5, Sitting Standing & Walking tolerance, Range of Motion measured in degrees using an inclinometer, MET Level, Lifting capacity(occasional & frequent), Push/Pull, Carry-2 handed 50 ft, DOT level. The [place]ston Reading Test may also be utilized as needed to provide information in the most appropriate format. Day 1 testing includes: * Physical Therapy: Functional Assessment (PT section) * Occupational Therapy: Functional Assessment (OT section) * Touch Pad Survey for questionnaires * Medical Consult with ANA (Associate Pain Provider: KIM CARR) or MD Medical Provider STRETCH, STRENGTH, & AEROBICS 1 hour daily with 2 [facility] staff members (combination of: DPT,OT, TELEPHONE SURVEYOR/FRANCO) Low impact aerobic conditioning and strengthening class that alternates between floor aerobics, step aerobics, yoga, exercise ball training, supine/prone/side- lying strengthening and stretching. Thisis the first class of every day so that patients begin the day with a warm-up of low-impact and lowintensity conditioning. The goal of the class is to introduce and encourage different types of cardiovascular conditioning and strengthening. STRENGTHENING & CARDIOVASCULAR EXERCISE 1 hour daily with 2 [facility] staff members (DPT & TELEPHONE SURVEYOR) The physical therapy staff instructs, modifies, and supervises upper extremity, lower extremity, and core strengthening exercises focused on regaining total body fitness. These exercises are completed by all patients and include free weights, weight machines, general upper and lower extremity exercise, and specific spinal flexor and extensor strengthening. Available dumbbells include 1-50 lbs. The exercises are listed in the training record and can be changed for each program and/or individualized for each patient. Patients are methodically encouraged to increase their repetitions, sets or weight for their exercises daily. The therapists will recommend an increase in 1 set, or 10 repetitions, or 1-20 lbs in weight. This will be decided by the therapists daily based on the patient's ability to complete the current exercise prescription, exercise mechanics, tolerance level, or current relevant physical complaints. Cardiovascular conditioning includes at least 3-15 minutes of one activity to be completed in 1-4 sessions. [facility] patients seldom have the conditioning to complete 15 minutes of one activity at a sufficient intensity to provoke a cardiovascular training response. Therefore, [facility] utilizes multiple sessions to reach cardiovascular goals. Multiple types of cardiovascular equipment will be used which include: stationary bike, elliptical machine, treadmill, outdoor walks and stairwells. Exercise grades, intensity, and times are monitored and recorded. Perceived exertion or heart rate may also be usedto rate exercise intensity. Intensity, incline, speed, and/or time will be increased daily. However, walking speed will be initially accelerated and emphasized. A normal walking speed of 3.5mph is a common goal of patients before the end of a program. Self-Care (sometimes ???Home Exercise?? ) Plans are individualized for specific chief complaints and any secondary musculoskeletal and/or cardiovascular concerns. They include cardiovascular training, strengthening, stretching (ROM activities when needed) and mindfulness/relaxation training. These programs are to be completed by patients during their time away from [facility] (evenings, weekends - off days as necessary). Throughout the course of treatment, patients are educated and guided in exercise decision-making principles. This education takes place throughout the treatment sessions, and is progressive for each patient at the pace that is appropriate for them. The goal is that, by program completion, they willbe able to make alterations/corrections as required independently so as to maintain the safety and effectiveness of their therapeutic exercises. By completion of the program, the patient will have an individualized therapeutic exercise Self Care Plan composed of 4 parts (cardiovascular training, strengthening, stretching and mindfulness/relaxation). It will be designed to maintain or progress gains in their preferred setting (home or gym) so they can benefit from continued functional recovery and pain relief on their own. Development of a ???Flare-Up Plan?? with the team is also included as part of the Self-Care plan prior to completion. Education will be provided throughout the program sessions on the natural history of chronic pain and the expectation that flare-ups will occur as part of this natural history. Theplan will include ways to distinguish chronic pain from acute pain and to determine whether or not medical intervention is necessary. Also included are personalized mechanical strategies and pain neuroscience strategies that can be used to manage chronic pain symptoms. FUNCTIONAL CONDITIONING 2 hours (over 2 sessions - AM and PM) with 2 [facility] staff members (OT, FRANCO/TELEPHONE SURVEYOR, occasionally DPT) Work Conditioning: Involves progressive and graded activities used at work, home and recreation. These activities include 1. Lifting: starts at roughly 1/3 of ???frequent?? testing weight and increases in regular intervals each day until goal weight is reached. * Frequent -Floor to waist - 20 X per session; 1-2 sessions per day * Frequent - Waist to shoulder -20 X per session; 1-2 sessions per day * Occasional Lifting- 5X per session; 1-2 sessions per day 2. Carrying - 5-10 minutes - 1 and 2 handed approaches, increasing weight carried on a daily basis 3. Repetitive bending and reaching - up to 10 minutes - wearing hand weights to increase upper extremity strength and tolerance to bending. 4. Pushing and pulling sled -25 feet - either weight and repetitions increase daily 5. Lifting through ROM - increases in either repetition or weight daily During the work conditioning sessions, individuals are taught other strategies including pacing formanaging pain symptoms and when to utilize them most effectively. Sessions are designed to increasework capacity goals through both strengthening and exposure to the level identified in the Occupational Therapy initial note. Self Care Planning sessions are also conducted by the OT team, with focus on time management as well as location and resource planning. WALK and/or UNGUARDED ACTIVITIES, MINDFULNESS/RELAXATION TRAINING & STRETCHING 1 hour with 2 [facility] staff members (OT, FRANCO/TELEPHONE SURVEYOR, occasionally DPT) Walk: 2-5x/wk patients will walk for 15-30 minutes, starting on flat terrain with minimal inclines for less time. They are encouraged to increase their speed, and therefore, heart rate, each day at their own pace to ultimately increase their walking tolerance. As their tolerance progresses, walks will include more incline. Unguarded Activity: 2-5x/wk games will be utilized to increase cardiovascular fitness, strength, endurance and flexibility and to encourage spontaneous or quick movements. Games will be played for 15-30 minutes. Mindfulness/Relaxation Training: Daily - patients will participate in 10-30 minutes of education and practice including but not limited to the following mindfulness and relaxation techniques for painmanagement: breathing focus, body scan, walking meditation, guided imagery, progressive muscle relaxation. Stretching techniques that are taught include standing and mat-based approaches. INDIVIDUAL TIME 15-30 minutes of individual treatment time with the OT and DPT. MEDICAL APPOINTMENTS (Meeting with ANA/MD) Two 25 minute individual clinic visits with a medical provider to discuss progress, concerns and individuals status, goals, and plan. These happen in the first week of program to discuss overall plan, and at approximately the midway point of the program to discuss any concerns that may arise. Additionally, a 25 minute discharge clinic visit will happen on the final day of the program to summarizethe plan for the patient going forward, including the Self Intermediate Program, and any work plans ifapplicable. PAIN EDUCATION SERIES All discussions are approximately 1 hour and led by Occupational and Physical Therapy staff. The latest research shows that the more you know about pain and how it works, the better off you'llbe. This includes moving and functioning better, experiencing less pain, and having an increased ability and interest in healthy exercise and movement. This knowledge is essential to your recovery, and research has shown that anyone can understand it, so welcome to Pain Neuroscience. These group discussions are designed to educate patients on pain neuroscience, coping skills and how to manage pain stressors in their lives. All patients are encouraged to participate in the group discussion as they feel comfortable. The objective is to help patients understand that they are not alone in their feelings and pain situations. Group discussions allow connections to be made with the staff as well as other group members allowing a supportive environment for all. Topics covered will include: Introduction to basic pain neuroscience - Learn what is happening in your tissues, nerves, and brain to create pain. How do we know what we know about pain, and if we know so much - why are you stillin pain? This will explain some of the mysteries of pain. The Kxo-Dtnibn-Sqmmnw Model of Pain and Multidisciplinary Treatment - Understanding and treating pain from a comprehensive, multidisciplinary approach is the gold standard of care. Studies have shownthat understanding and viewing chronic pain though a biopsychosocial lens is a critical component of success in a program like this. Pain Control Skills - Learn how habitual thoughts, emotions, and behaviors can actually turn the volume up on pain and how techniques like breathing, relaxation response and mindfulness medication can turn the volume down. Sleep and Chronic Pain - If you're not moving and you're not sleeping, you're not going to feel better. Learn to improve sleep habits even if you still have pain. Pulling It All Together - How to maintain new habits at home, and how to manage relapses and flare-ups. MEDICAL PROVIDER DISCUSSIONS All discussions are 45 min-1 hour and are led by an MD/ANA Interactive group discussions are designed to educate, motivate, and empower the patients to self-manage their pain and accompanying medical co-morbidities. Topics covered: FUNCTIONAL RASTAFARI & GOAL SETTING Interactive exercises to demonstrate the difficulties in assessing and understanding another person's pain. The learning model of reacting to pain by limiting activity is reviewed, leading to a discussion ofthe development of safe training methods that are gradually progressive and goal- and quota-based rather than symptom-reactive. Importance of maintaining physical gains after rehabilitation by committing to a more active lifestyle is stressed. The complex relationship between pain and function is discussed in the context of underlying beliefs and expectations and how these may dramatically affect recovery and the individuals' ability to get what they want from treatment. Practical application of these issues to the individual's situationis stressed. ANATOMY, IMAGING, SURGICAL DECISION MAKING, MEDICATIONS Topics covered: Importance of the History, Physical Examination, and Imaging studies. Solving the Mystery: Where is the Pain Coming From? Defines anatomy and possible pain generators in the back. Some thoughts and explanations for the failure to improve: What's known, what's not This also includes listing all the patients' current and prior chief complaint- related medications,placing each in its pharmacological category. The personal experiences of the patients in terms of side effects and benefits are reviewed and discussed with references to the biochemical and clinicaleffects of the drugs. The lack of curative impact of these medications is stressed. The difficulties in determining optimal doses for analgesics are discussed in the context of the varying needs of patients and regulatory issues involved. The importance of prescribing in the framework of functionalgoals is reviewed as opposed to focusing entirely on symptom relief. CHRONIC PAIN & THE NERVOUS SYSTEM Reviews basic neuro anatomy and the relationship between pain and cognitive states, as well as the concept of central sensitization. A discussion regarding coping skills such as meditation, mindfulness and cognitive restructuring is discussed. LIFESTYLE AND WELLNESS The purpose of this discussion is to identify modifiable and non-modifiable factors that influence health and wellness. Focus on defining wellness and health, discussing non-modifiable risk factors of morbidity and mortality vs. modifiable factors. Discussion of strategies for maximal management ofnon- modifiable factors. Includes diet, nutrition information, exercise recommendations, sleep and stress management. All participants encouraged to participate and share helpful coping strategies. SUPPLEMENTAL DISCUSSIONS by [facility] staff OT, FRANCO/TELEPHONE SURVEYOR, DPT, SPORTS AGENT as needed COUNTERACTING STRAINS OF DAILY LIVING An introduction to mechanical self-care techniques, why they can be helpful and the best ways to use them on a daily basis. SELF CARE PLAN DEVELOPMENT A review of the different parts of the Self Care Plan, which include traditional exercises such as Strengthening, Stretching and Cardiovascular exercises, along with pain management techniques such as breathing and meditation, and a ???Flare-Up Plan?? to help manage pain on more challenging days. How to incorporate a Self Care Plan into your (busy) daily life when it feels overwhelming. What are the expected challenges and what options will you have? PACING STRATEGIES FOR CHRONIC PAIN Why people with chronic pain often get stuck in unhelpful cycles with pain management (the ???Downward Pain Spiral?? and ???Boom and Bust Cycle?? ) and how to use a time-based method rather than a symptom-focused method to manage pain. JOB HUNTING A review of job seeking skills and hints to use after an injury and rehabilitation. Includes topicssuch as employer's obligations, your obligations, vocational rehabilitation, resume and cover letter writing, application process and writing. There is also an extensive discussion of the Americans with Disabilities Act. WORKERS COMPENSATION & INSURANCE This will be provided asynchronously via telehealth recording. This lecture provides a detailed description of the benefits, known criteria, application and review process for (6) most common types of disability; Workers Compensation, Short term/Senior Care Disability, Social Security Disability, Tort/Liability, Side Seam Tender [place], and Medicaid. During the course of the lecture patients are encouraged to share their concerns and questions as well as to elicit and dispel any myths, beliefs or assumptions they, their families, or others may have had about these resources. Further exploration of the often ensuing disappointments many patientshave when recognizing the limitations of the types of disabilities as well as exploration and re-framing of the potential opportunities. Concurrently, specifics of plateau (ie MMI or End Medical) for workers compensation as well as information on how impairment ratings are calculated are explored both to encourage patient planning as well as to begin to face these significant psychosocial stressors faced by patients as they end Functional Judaism and come to plateau. Patients who are not workers compensation are also encouraged to participate in this conversation as part of a therapeutic review of understanding their fellow participants and the challenges faced by others. FUNCTIONAL RASTAFARI PROGRAM (FRP) DAILY PROTOCOL OVERVIEW: FRP consists of 19* days of interdisciplinary treatment and patients are in the clinic each day from 8 am to 3 pm. Individual meeting times with DPT, OT, Medical Providers and Care Management occur at multiple points during the FRP. *Occasionally the # of program days may be changed to as few as 14 or as many as 20 due to staffinglimitations Functional Judaism Protocol Day 1 - Testing PT Evaluation (45 minutes) OT Evaluation (45 minutes) ANA Evaluation (45 minutes) Care Management meeting as needed (30-45 minutes) Orientation and additional testing as needed (0.5-1 hour) Day 2 - Orientation Stretch, Strengthening and Aerobics Class (1 hour) Strengthening and Cardiovascular Exercise (1 hour) Functional Conditioning (1 hour) Pain Education/Medical Provider/Other Supplemental Discussion Topic (1 hour) Functional Conditioning (1 hour) Walk/Unguarded Activity, Mindfulness/Relaxation and Stretching (1 hour) Meeting with ANA (25 minutes) - happens within first 2-5 days of program Day 3 Stretch, Strengthening and Aerobics Class (1 hour) Strengthening and Cardiovascular Exercise (1 hour) Functional Conditioning (1 hour) Pain Education/Medical Provider/Other Supplemental Discussion Topic (1 hour) Functional Conditioning (1 hour) Walk/Unguarded Activity, Mindfulness/Relaxation and Stretching (1 hour) Day 4 Stretch, Strengthening and Aerobics Class (1 hour) Strengthening and Cardiovascular Exercise (1 hour) Functional Conditioning (1 hour) Pain Education/Medical Provider/Other Supplemental Discussion Topic (1 hour) Functional Conditioning (1 hour) Walk/Unguarded Activity, Mindfulness/Relaxation and Stretching (1 hour) Day 5 Stretch, Strengthening and Aerobics Class (1 hour) Strengthening and Cardiovascular Exercise (1 hour) Functional Conditioning (1 hour) Pain Education/Medical Provider/Other Supplemental Discussion Topic (1 hour) Functional Conditioning (1 hour) Walk/Unguarded Activity, Mindfulness/Relaxation and Stretching (1 hour) Day 6 Stretch, Strengthening and Aerobics Class (1 hour) Strengthening and Cardiovascular Exercise (1 hour) Functional Conditioning (1 hour) Pain Education/Medical Provider/Other Supplemental Discussion Topic (1 hour) Functional Conditioning (1 hour) Walk/Unguarded Activity, Mindfulness/Relaxation and Stretching (1 hour) Day 7 Stretch, Strengthening and Aerobics Class (1 hour) Strengthening and Cardiovascular Exercise (1 hour) Functional Conditioning (1 hour) Pain Education/Medical Provider/Other Supplemental Discussion Topic (1 hour) Functional Conditioning (1 hour) Walk/Unguarded Activity, Mindfulness/Relaxation and Stretching (1 hour) Day 8 Stretch, Strengthening and Aerobics Class (1 hour) Marshall Testing (60 min) Strengthening and Cardiovascular Exercise (30 minutes) Functional Conditioning (30 minutes) Pain Education/Medical Provider/Other Supplemental Discussion Topic (1 hour) Functional Conditioning (1 hour) Walk/Unguarded Activity, Mindfulness/Relaxation and Stretching (1 hour) Day 9 Stretch, Strengthening and Aerobics Class (1 hour) Strengthening and Cardiovascular Exercise (1 hour) Functional Conditioning (1 hour) Meeting with ANA (25 minutes) - Marshall review Pain Education/Medical Provider/Other Supplemental Discussion Topic (1 hour) Functional Conditioning (1 hour) Walk/Unguarded Activity, Mindfulness/Relaxation and Stretching (1 hour) Day 10 Stretch, Strengthening and Aerobics Class (1 hour) Strengthening and Cardiovascular Exercise (1 hour) Functional Conditioning (1 hour) Pain Education/Medical Provider/Other Supplemental Discussion Topic (1 hour) Functional Conditioning (1 hour) Walk/Unguarded Activity, Mindfulness/Relaxation and Stretching (1 hour) Day 11 Stretch, Strengthening and Aerobics Class (1 hour) Strengthening and Cardiovascular Exercise (1 hour) Functional Conditioning (1 hour) Pain Education/Medical Provider/Other Supplemental Discussion Topic (1 hour) Functional Conditioning (1 hour) Walk/Unguarded Activity, Mindfulness/Relaxation and Stretching (1 hour) Day 12 Stretch, Strengthening and Aerobics Class (1 hour) Strengthening and Cardiovascular Exercise (1 hour) Functional Conditioning (1 hour) Pain Education/Medical Provider/Other Supplemental Discussion Topic (1 hour) Functional Conditioning (1 hour) Walk/Unguarded Activity, Mindfulness/Relaxation and Stretching (1 hour) Day 13 Stretch, Strengthening and Aerobics Class (1 hour) Strengthening and Cardiovascular Exercise (1 hour) Functional Conditioning (1 hour) Pain Education/Medical Provider/Other Supplemental Discussion Topic (1 hour) Functional Conditioning (1 hour) Walk/Unguarded Activity, Mindfulness/Relaxation and Stretching (1 hour) Day 14 Stretch, Strengthening and Aerobics Class (1 hour) Strengthening and Cardiovascular Exercise (1 hour) Functional Conditioning (1 hour) Pain Education/Medical Provider/Other Supplemental Discussion Topic (1 hour) Functional Conditioning (1 hour) Walk/Unguarded Activity, Mindfulness/Relaxation and Stretching (1 hour) Day 15 Stretch, Strengthening and Aerobics Class (1 hour) Strengthening and Cardiovascular Exercise (1 hour) Functional Conditioning (1 hour) Pain Education/Medical Provider/Other Supplemental Discussion Topic (1 hour) Functional Conditioning (1 hour) Walk/Unguarded Activity, Mindfulness/Relaxation and Stretching (1 hour) Day 16 Stretch, Strengthening and Aerobics Class (1 hour) Strengthening and Cardiovascular Exercise (1 hour) Functional Conditioning (1 hour) Pain Education/Medical Provider/Other Supplemental Discussion Topic (1 hour) Functional Conditioning (1 hour) Walk/Unguarded Activity, Mindfulness/Relaxation and Stretching (1 hour) Day 17 Stretch, Strengthening and Aerobics Class (1 hour) Strengthening and Cardiovascular Exercise (1 hour) Functional Conditioning (1 hour) Pain Education/Medical Provider/Other Supplemental Discussion Topic (1 hour) Functional Conditioning (1 hour) Walk/Unguarded Activity, Mindfulness/Relaxation and Stretching (1 hour) Day 18 Stretch, Strengthening and Aerobics Class (1 hour) Strengthening and Cardiovascular Exercise (1 hour) Functional Conditioning (1 hour) Pain Education/Medical Provider/Other Supplemental Discussion Topic (1 hour) Functional Conditioning (1 hour) Walk/Unguarded Activity, Mindfulness/Relaxation and Stretching (1 hour) Day 19 Stretch, Strengthening and Aerobics Class (1 hour) Final Testing (2 hours) Strengthening and Cardiovascular Exercise (1 hour) Functional Conditioning (1-2 hours) Walk/Unguarded Activity, Mindfulness/Relaxation and Stretching (1 hour) Day 20 Stretch, Strengthening and Aerobics Class (1 hour) Strengthening and Functional Conditioning (1 hour) Functional Conditioning (up to 1 hour) Individual Discharge Meeting with MD/ANA and FRP team (25 minutes) Graduation and Final D/C information (20 minutes) documented in this encounter Plan of Treatment Upcoming Encounters Date Type Department Care Team (Late st Contact Info) Description 09/18/2024 10:30 AM EST Office Visit Hematology/Oncology at [address] [phone] Eric[address] Yi [address] MEDICAL ONCOLOGY [place], [place] [address] 09/18/2024 11:00 AM EST Infusion Hematology Oncology at [address] [phone] 10/01/2024 3:45 PM EST Office Visit Functional Judaism Program at [address] [place] [address] Gene Julien Jr., PT 12/23/2024 8:00 AM EST Appointment XRay at [address] [place] [address] River Ochoa MD [address] [place], [place] [address] 01/21/2025 1:00 PM EDT Office Visit Radiation Oncology at [address] [phone] Tory Salazar PA [facility] [place] [address] documented as of this encounter Visit Diagnoses Diagnosis Lumbar spondylosis Lumbosacral spondylosis without myelopathy Radiculopathy of cervical region Brachial neuritis or radiculitis nos Radiculopathy of lumbar region Thoracic or lumbosacral neuritis or radiculitis, unspecified Lumbar foraminal stenosis Spinal stenosis, lumbar region, without neurogenic claudication documented in this encounter Care Teams Director Of Recruitment And Admissions Relationship Specialty Start Date End Date Kay Caldwell MD [address] [place] [address] [address] [place] [address] PCP - General Family Medicine 08/15/22 documented as of this encounter
--- OUTSIDE RECORDS SUMMARY | 2024-09-18 01:20 | XMS_ITS | Encounter Summary ---
Author Organization [facility] [place] [address] Care Team Providers Care Lime Kiln Worker Helper Name Role Phone Kay Caldwell MD Primary Care Provider [phone] Reason for Visit * Auth/Cert (Routine) Specialty Diagnoses / Procedures Referred By Contac t Referred To Contact Diagnoses Lumbar Radiculopathy Procedures PRO INJECTION DX/THER SBST INTRLMNR LMBR/SAC W/IMG GDN INJECTION, EPIDURAL, LUMBAR OR SACRAL (CAUDAL), WITH IMAGING GUIDANCE (WRVU 1.8) Jose Tai MD [facility] [place] [address] [facility] Referral ID Status Reason Start Date Expiration Date Visits Re quested Visits Authorized [id number] 1 1 Encounter Details Date Type Department Care Team (Late st Contact Info) Description 11/21/2022 10:00 AM EST Ancillary [place] [address] Jose Tai MD [facility] [address] Social History Tobacco Use Types Packs/Day Years [...] AM EST Office Visit Hematology/Oncology at [address] [phone] Erica Yi APRN [address] [place] [address] DR MEDICAL ONCOLOGY [place], [place] [address] 09/18/2024 11:00 AM EST Infusion Hematology Oncology at [address] [phone] 10/01/2024 3:45 PM EST Office Visit Functional Druze Program at [address] [facility] [place] [address] Gene Julien Jr., PT 12/23/2024 8:00 AM EST Appointment XRay at [address] [place] [address] River Ochoa MD [address] [place], [place] [address] 01/21/2025 1:00 PM EDT Office Visit Radiation Oncology at [address] [phone] Tory Salazar PA [facility] DR HEMATOLOGY [place] [address] documented as of this encounter Procedures Procedure Name Priority Date/Time Associated Diagnosis Comments FILM LIBRARY STORAGE ONLY PAIN CLINIC C ARM Routine 11/21/2022 11:56 AM EST documented in this encounter Results * Film Library- Storage Only pain Clinic C-Arm (11/21/2022 11:56 AM EST) Narrative [facility] - 11/21/2022 11:56 AM EST See PACS for result report. Jose Tai MD IMG FILM LIBRARY ORD ERABLES [place], [place] documented in this encounter Visit Diagnoses Not on filedocumented in this encounter Care Teams Lime Kiln Worker Helper Relationship Specialty Start Date End Date Kay Caldwell MD [address] [place] [address] [address] [place] [address] PCP - General Family Medicine 08/15/22 documented as of this encounter
--- OUTSIDE RECORDS SUMMARY | 2024-09-18 01:20 | XMS_ITS | Encounter Summary ---
Author Organization [facility] [place] [address] Care Team Providers Care Quality Assurance Supervisor Final Name Role Phone Kay Caldwell MD Primary Care Provider [phone] Reason for Visit * Consultation (Routine) - [...] TEST W REPORT 15 MIN Jazmín Santiago, ARCH PAD CEMENTER [facility] [place] [address] Htr Frp [address] [place] [address] Referral ID Status Reason Start Date Expiration Date Visits Requested Visits Authorized [id number] Closed Functional Restorative Program 03/25/2023 03/24/2024 52 52 Encounter Details Date Type Department Care Team (Late st Contact Info) Description 04/19/2023 8:00 AM EDT Office Visit Functional Shinto Program at [facility] [address] [place] [address] Gene Julien Jr., PT Spondylosis [...] Therapy - Gene Julien JrDerrell, PT - 04/19/2023 8:00 AM EDT FRP Physical Therapy Note P Day 5 Warm Up Exercises Protocol Subjective: Josselyn Garduno returns today for a scheduled follow up appointment with P; Josselyn reports feeling very sore. Objective: Treatment Received: Group of 6 Initial [...] 2 sets to tolerance Cardio performed on treadmill 10 Mins See [facility] flowsheet for details on time held and weights completed Patient participated in all exercises, with some challenges with positioning with low seats. Assessment: Josselyn Garduno returns for follow up visit. She was able to progress weights appropriately, while successfully maintaining form. She performed more Rep EIS in between exercises which demonstrates better pacing strategies as she gets deeper into activity for the week. This will be important for her to manage for her [facility] success and recovery. She actively participated as a member of the group throughout session. Plan: Return for follow up with [facility] per protocol. Personal Function 3 Month [...] AM EST Office Visit Hematology/Oncology at [address] [phone] Erica Yi APR[address] MEDICAL ONCOLOGY [place], [place] [phone] 09/18/2024 11:00 AM EST Infusion Hematology Oncology at [address] [phone] 10/01/2024 3:45 PM EST Office Visit Functional Shinto Program at [address] [phone] Gene Julien Jr., PT 12/23/2024 8:00 AM EST Appointment XRay at [address] [place] [phone] River Ochoa MD [address] [place] [address] 01/21/2025 1:00 PM EDT Office Visit Radiation Oncology at [address] [phone] Tory Salazar PA [facility] [place] [address] documented as of this encounter Visit Diagnoses Diagnosis Spondylosis of lumbar region without myelopathy or radiculopathy Lumbosacral spondylosis without myelopathy Lumbar foraminal stenosis Spinal stenosis, lumbar region, without neurogenic claudication documented in this encounter Care Teams Quality Assurance Supervisor Final Relationship Specialty Start Date End Date Kay Caldwell MD [address] [place] [address] [address] [place], [place] [address] PCP - General Family Medicine 08/15/22 documented as of this encounter
--- OUTSIDE RECORDS SUMMARY | 2024-09-18 01:20 | XMS_ITS | Encounter Summary ---
[place] [address] Care Team Providers Care Barrel Stave Inspector Name Role Phone Kay Caldwell MD Primary Care Provider [phone] Encounter Details Date Type Department Care Team (Late st Contact Info) Description 03/29/2023 Telephone [place] [phone] Arielle Freeman Social History Tobacco Use Types Packs/Day Years Used Date Smoking Tobacco: Former Smokeless Tobacco: Never Sex and Gender Information Value Date Recorded Sex Assigned at Not on file Gender Identity Not on file Sexual Orientation Not on file documented as of this encounter Miscellaneous Notes * Telephone Encounter - Arielle Freeman - 03/29/2023 11:19 AM EDT Called patient to inform her that an invitation to the upcoming April FRP will be mailed to her today. Patient was appreciative and said she would like to confirm now. I encouraged her to read the invitation packet first and call once she has done so as there is a phone check list to go over. Patient thanked me and stated she would call once packet is received. documented in this encounter Plan of Treatment Upcoming Encounters Date Type Department Care Team (Late st Contact Info) Description 09/18/2024 10:30 AM EST Office Visit Hematology/Oncology at [address] [phone] Erica Yi APRN [address] [place] [address] DR MEDICAL ONCOLOGY [place], [place] [address] 09/18/2024 11:00 AM EST Infusion Hematology Oncology at [address] [phone] 10/01/2024 3:45 PM EST Office Visit Functional Advent Program at [facility] [address] [place] [address] Gene Julien Jr., PT 12/23/2024 8:00 AM EST Appointment XRay at [address] [place] [address] River Ochoa MD [address] [place] [address] 01/21/2025 1:00 PM EDT Office Visit Radiation Oncology at [address] [phone] Tory Salazar PA [facility] DR HEMATOLOGY [place] [address] documented as of this encounter Visit Diagnoses Not on filedocumented in this encounter Care Teams Barrel Stave Inspector Relationship Specialty Start Date End Date Kay Caldwell MD [address] [place] [address] [address] [place] [address] PCP - General Family Medicine 08/15/22 documented as of this encounter
--- OUTSIDE RECORDS SUMMARY | 2024-09-18 01:20 | XMS_ITS | Encounter Summary ---
[place] [address] Care Team Providers Care Lead Investigator Name Role Phone Kay Caldwell MD Primary Care Provider [phone] Encounter Details Date Type Department Care Team (Late st Contact Info) Description 03/15/2023 Notes Only [place] [phone] Arielle Freeman Social History Tobacco Use Types Packs/Day Years Used Date Smoking Tobacco: Former Smokeless Tobacco: Never Sex and Gender Information Value Date Recorded Sex Assigned at Not on file Gender Identity Not on file Sexual Orientation Not on file documented as of this encounter Progress Notes * Arielle Freeman - 03/15/2023 10:27 AM EDT Compiled appointment note, brochure for the Functional Voodoo Program, as well as local lodging information and mailed these to the patient in anticipation of her upcoming GAP and Medical Clearance. documented in this encounter Plan of Treatment Upcoming Encounters Date Type Department Care Team (Late st Contact Info) Description 09/18/2024 10:30 AM EST Office Visit Hematology/Oncology at [address] [phone] Erica Yi APRN [address] [place] [address] MEDICAL ONCOLOGY [place], [place] [phone] 09/18/2024 11:00 AM EST Infusion Hematology Oncology at [address] [phone] 10/01/2024 3:45 PM EST Office Visit Functional Voodoo Program at [facility] [address] [place] [address] Gene Julien Jr., PT 12/23/2024 8:00 AM EST Appointment XRay at [address] [place] [address] River Ochoa MD [address] [place], [place] [address] 01/21/2025 1:00 PM EDT Office Visit Radiation Oncology at [address] [phone] Tory Salazar PA [facility] HEMATOLOGY AND [place] [address] documented as of this encounter Visit Diagnoses Not on filedocumented in this encounter Care Teams Lead Investigator Relationship Specialty Start Date End Date Kay Caldwell MD [address] [place] [address] [address] [place], [place] [address] PCP - General Family Medicine 08/15/22 documented as of this encounter
--- OUTSIDE RECORDS SUMMARY | 2024-09-18 01:20 | XMS_ITS | Encounter Summary ---
Author Organization [facility] [place] [address] Care Team Providers Care Post Closing Specialist Name Role Phone Kay Caldwell MD Primary Care Provider [phone] Encounter Details Date Type Department Care Team (Late st Contact Info) Description 03/25/2023 Notes Only [facility] [place] [phone] Etienne Leger MSW Social History Tobacco Use Types Packs/Day Years Used Date Smoking Tobacco: Former Smokeless Tobacco: Never Sex and Gender Information Value Date Recorded Sex Assigned at Not on file Gender Identity Not on file Sexual Orientation Not on file documented as of this encounter Progress Notes * Etienne Leger MSW - 03/25/2023 6:21 PM EDT OFFICE of CARE MANAGEMENT CCM Leather Grader met with Ms. Josselyn Garduno during her Clinic visit, accompanied by her spouse and support person Mr. Casey Garduno. Ms. Garduno received Medical Clearance to participate in the Functional Adventist Program. She is interested in the program operating from 04/15/23-05/10/23. Shestated she has been placed on the Wait list at this time. Leather Grader informed Ms. Garduno that she will provide her with updates regarding Wait list status upon her receipt. Ms. Garduno and Leather Grader discussed logistics and any possible barriers to treatment. Ms. Garduno stated there are no foreseeable identifiable barriers to treatment at this time. Mr. Garduno stated he will transport Ms. Garduno daily, to and from the program. Therefore, transportation is not a barrier. Ms. Garduno did not express interest in lodging locally during the program. Ms. Garduno inquired about whether or not Medicare will cover the cost of the program and/or will she have any out of pocket expenses? Leather Grader informed Ms. Garduno that Medicare historically covers the cost of program with no out of pocket expenses. However, her insurance information will be submitted prior to participation in the program and she will receive insurance coverage information prior to the start of program. Ms. Garduno verbalized understanding and there are no other concerns to address at this time. GUADALUPE Lai documented in this encounter Plan of Treatment Upcoming Encounters Date Type Department Care Team (Late st Contact Info) Description 09/18/2024 10:30 AM EST Office Visit Hematology/Oncology at [address] [phone] Erica Yi [address] MEDICAL ONCOLOGY [place], [place] [address] 09/18/2024 11:00 AM EST Infusion Hematology Oncology at [address] [phone] 10/01/2024 3:45 PM EST Office Visit Functional Adventist Program at [address] [place] [address] Gene Julien Jr., PT 12/23/2024 8:00 AM EST Appointment XRay at [address] [place] [phone] River Ochoa MD [address] [place] [address] 01/21/2025 1:00 PM EDT Office Visit Radiation Oncology at [address] [phone] Tory Salazar PA [facility] DR [place] [address] documented as of this encounter Visit Diagnoses Not on filedocumented in this encounter Care Teams Post Closing Specialist Relationship Specialty Start Date End Date Kay Caldwell MD [address] [place] [address] [address] [place], [place] [address] PCP - General Family Medicine 08/15/22 documented as of this encounter
--- OUTSIDE RECORDS SUMMARY | 2024-09-18 01:21 | XMS_ITS | Encounter Summary ---
Author Organization [facility] [place] [address] Care Team Providers Care Business Banking Representative Name Role Phone Kay Caldwell MD Primary Care Provider [phone] Reason for Referral * Consultation (Routine) - Closed Specialty Diagnoses / Procedures Referred By Contac t Referred To Contact Pain and Spine Center Diagnoses Abdominal pain, unspecified abdominal location Pain- chronic R flank pain/ ? pain mgmt options Procedures Dmitri Quevedo MD [address] [place] [address] Cristóbal Jerry MD [facility] [place] [address] Referral ID Status Reason Start Date Expiration Date V isits Requested Visits Authorized [id number] Closed Consult, Test & Treat PCP Updated and/or Approved 08/15/2022 08/15/2023 6 6 Encounter Details Date Type Department Care Team (Late st Contact Info) Description 08/15/2022 Transcribe Orders eDH Incoming Referrals [phone] Dmitri Schultz MD [address] [place] [address] Abdominal pain, unspecified abdominal location Social History Tobacco Use Types Packs/Day Years Used Date Smoking Tobacco: Never Assessed Sex and Gender Information Value Date Recorded Sex Assigned at Not on file Gender Identity Not on file Sexual Orientation Not on file documented as of this encounter Plan of Treatment Upcoming Encounters Date Type Department Care Team (Late st Contact Info) Description 09/18/2024 10:30 AM EST Office Visit Hematology/Oncology at [address] [phone] Erica Yi, SOFTWARE TECHNICIAN [address] [place] [address] DR MEDICAL ONCOLOGY [place] [phone] 09/18/2024 11:00 AM EST Infusion Hematology Oncology at [address] [phone] 10/01/2024 3:45 PM EST Office Visit Functional Judaism Program at [address] [place] [address] Gene Julien Jr., PT 12/23/2024 8:00 AM EST Appointment XRay at [address] [place] [address] River Ochoa MD [address] [place], [place] [address] 01/21/2025 1:00 PM EDT Office Visit Radiation Oncology at [address] [phone] Tory Salazar PA [facility] [place] [address] Scheduled Referrals Name Type Priority Associated Diagnoses Orde r Schedule Referral to Pain Management Outpatient Referral Routine Abdominal pain, unspecified abdominal location Ordered: 08/15/2022 documented as of this encounter Visit Diagnoses Diagnosis Abdominal pain, unspecified abdominal location documented in this encounter Care Teams Business Banking Representative Relationship Specialty Start Date End Date Kay Caldwell MD [address] [place] [address] [address] [place] [address] PCP - General Family Medicine 08/15/22 documented as of this encounter
--- OUTSIDE RECORDS SUMMARY | 2024-09-18 01:21 | XMS_ITS | Encounter Summary ---
Author Organization [facility] Address [address] [place] [address] Care Team Providers Care Visual Merchandising Associate Name Role Phone Dina Garcia MD Primary Care Provider [phone] Encounter Details Date Type Department Care Team (Late st Contact Info) Description 10/24/2021 Lab Requisition [facility] Pathology & Laboratory Medicine - [facility] [address] [place] [address] Dmitri Schultz MD [address] [place] [phone] Encounter for other general examination Social History Tobacco Use Types Packs/Day Years Used Date Smoking Tobacco: Former Cigarettes Q uit: 12/03/1984 Smokeless Tobacco: Never Alcohol Use Standard Drinks/Week Comments No 0 (1 standard drink = 0.6 oz pur e alcohol) 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 Interpersonal Safety Answer Date Record ed Physically Hurt Never 06/12/2020 Verbally Threaten Not on file 06/12/2020 Sex and Gender Information Value Date Recorded Sex Assigned at Not on file Gender Identity Not on file Sexual Orientation Not on file documented as of this encounter Plan of Treatment Not on file documented as of this encounter Procedures Procedure Name Priority Date/Time Associated Diagnosis Comments SURGICAL PATHOLOGY Today 10/24/2021 10 :00 EST documented in this encounter Results * SURGICAL PATHOLOGY (10/24/2021 10:00 EST) Note to Patient The following pathology results have been interpreted by your pathologist and may be available to you before your health provider has had the opportunity to review them. Please allow time for your provider to receive these results and explore management options, if applicable. 10/25/2021 17:07 [facility] Final Diagnosis A. COLON, ASCENDING, POLYP, BIOPSY: - Sessile serrated adenoma. B. COLON, DESCENDING, POLYP, BIOPSY: - Tubular adenoma. 10/25/2021 17:07 [facility] Attestation By the signature below, the attending physician certifies that they have 1) personally conducted a gross and/or microscopic examination of the described specimen(s), and/or personally interpreted the results of laboratory testing of the described specimen(s), and 2) personally rendered or confirmed the above diagnosis. 10/25/2021 17:07 [facility] at 1707 Clinical History Diverticulitis, diverticulosis, colon polyp 10/25/2021 17:07 [facility] Gross Description A. Received in formalin labelled with proper patient identification (initials B, A) and ascending colon polyp are 2 fragments of dc soft tissue (each averaging 0.4 x 0.4 x 0.3 cm). The specimen is entirely submitted in A1. B. Received in formalin labelled with proper patient identification (initials B, A) and descending colon polyp is a single fragment of dc soft tissue (0.7 x 0.4 x 0.3 cm). The specimen is entirely submitted in B1. KIM DANG(ASCP) 10/25/2021 7:59 10/25/2021 17:07 [facility] Performing Lab [facility] 10/25/2021 17:07 [facility] Scanned Images 10/25/2021 17:07 [facility] Tissue DESCENDING COLON STRUCTURE / Unknown 10/24/2021 10:00 EST 10/24/2021 23:16 EST Tissue specimen (specimen) DESCENDING COLON STRUCTURE / Unknown 10/24/2021 10:00 EST 10/24/2021 23:16 EST Dmitri Schultz MD PATHOLOGY [facility] [address] [place] [address] documented in this encounter Visit Diagnoses Diagnosis Encounter for other general examination documented in this encounter Care Teams Visual Merchandising Associate Relationship Specialty Start Date End Date Dina Garcia MD [address] [address] PCP - General 02/20/16 documented as of this encounter
--- OUTSIDE RECORDS SUMMARY | 2024-09-18 01:21 | XMS_ITS | Encounter Summary ---
Author Organization [facility] Address [address] [place] [address] Care Team Providers Care Rug Dry Room Attendant Name Role Phone Dina Garcia MD Primary Care Provider [phone] Reason for Visit * Reason Onset Date Comments Medication Adherence 06/24/2018 Encounter Details Date Type Department Care Team (Late st Contact Info) Description 06/24/2018 Telephone [facility] Pelvic Medicine and Reconstructive Surgery - Medical Office 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 There was not a new prescription put through for her because she had one and thought she could just get a refill. Because she has increased the frequency of use insurance is telling her she can not get a refill as it is too soon. I advised her I would put a presc through with the necessary increase in usage * Telephone Encounter - Zohra Sutton RN - 06/24/2018 1336 EDT Pt needing to talk to a Nurse about her Premarin Cream. documented in this encounter Plan of Treatment Not on file documented as of this encounter Visit Diagnoses Not on filedocumented in this encounter Discontinued Medications Medication Sig Discontinue Reason Start Date End Da te conjugated estrogens 0.625mg/G (PREMARIN) vaginal cream Place 0.5 g vaginally daily. Reorder 06/24/2018 documented as of this encounter Care Teams Rug Dry Room Attendant Relationship Specialty Start Date End Date Dina Garcia MD [address] [address] PCP - General 02/20/16 documented as of this encounter
--- OUTSIDE RECORDS SUMMARY | 2024-09-18 01:21 | XMS_ITS | Encounter Summary ---
Author Organization [facility] Address [address] [place] [address] Care Team Providers Care Appeals Representative Name Role Phone Tiffany Baron MD Primary Care Provider [phone] Encounter Details Date Type Department Care Team (Latest Contact Info) Description 12/23/2014 7:09 EST - 12/23/2014 23:59 [facility] Hospital Encounter [facility] [address] [place] [address] Octavio Oswald MD [address] [place] [address], [address] [place] [address] Discharge Disposition: Auto Discharge Social History Tobacco Use Types Packs/Day Years Used Date Smoking Tobacco: Former Cigarettes Q uit: 12/03/1984 Alcohol Use Standard Drinks/Week Comments No 0 (1 standard drink = 0.6 oz pur e alcohol) Sex and Gender Information Value Date Recorded Sex Assigned at Not on file Gender Identity Not on file Sexual Orientation Not on file documented as of this encounter Discharge Diagnoses Diagnosis 784.0 HEADACHE[ICD-9-CM] documented in this encounter Medications at Time of Discharge Medication Sig Dispensed Refills Start Date End Date cholecalciferol, Vitamin D3, 1,000 unit tablet Take 1,000 Units by mouth daily. cyanocobalamin (VITAMIN B-12) 1,000 mcg tablet Take 1,000 mcg by mouth daily. lisinopril (PRINIVIL, ZESTRIL) 10 mg tablet Take 10 mg by mouth daily. MULTIVITAMIN ORAL Take by mouth [address] Fatty Acids-Vitamin E (FISH OIL) 1,000 mg capsule Take by mouth 2 times daily. POTASSIUM ORAL Take by mouth daily. QUEtiapine (SEROQUEL) 25 mg tablet Take 25 mg by mouth at bedtime. simvastatin (ZOCOR) 20 mg tablet Take 20 mg by mouth at bedtime. venlafaxine (EFFEXOR XR) 37.5 mg XR capsule Take 37.5 mg by mouth daily. aspirin chewable 81 mg tablet Take 81 mg by mouth daily. 12/30/2019 CALCIUM ORAL Take by mouth daily. 016 conjugated estrogens 0.625mg/G (PREMARIN) vaginal cream Place 0.5 g vaginally daily. 06/24/2018 OMEPRAZOLE ORAL Take 40 mg by mouth daily. 12/30/2019 documented as of this encounter Discharge Disposition Disposition Code Departure Means Destination Auto Discharge Home documented in this encounter Plan of Treatment Not on file documented as of this encounter Visit Diagnoses Not on filedocumented in this encounter Care Teams Appeals Representative Relationship Specialty Start Date End Date Tiffany Baron MD [address] [address] PCP - General 01/12/14 02/19/16 documented as of this encounter
--- OUTSIDE RECORDS SUMMARY | 2024-09-18 01:21 | XMS_ITS | Encounter Summary ---
Author Organization [facility] [place] [address] Care Team Providers Care Acidity Tester Name Role Phone Kay Caldwell MD Primary Care Provider [phone] Encounter Details Date Type Department Care Team (Latest Contact Info) Description 10/23/2022 Travel Social History Tobacco Use Types Packs/Day [...] AM EST Office Visit Hematology/Oncology at [address] [phone] Erica Yi APRN [address] [place] [address] DR MEDICAL ONCOLOGY [place], [place] [address] 09/18/2024 11:00 AM EST Infusion Hematology Oncology at [address] [phone] 10/01/2024 3:45 PM EST Office Visit Functional Episcopal Program at [facility] [address] [place] [address] Gene Julien Jr., PT 12/23/2024 8:00 AM EST Appointment XRay at [facility] [place] [address] River Ochoa MD [address] [place] [address] 01/21/2025 1:00 PM EDT Office Visit Radiation Oncology at [address] [phone] Toyr Salazar PA [facility] DR HEMATOLOGY [place] [address] documented as of this encounter Visit Diagnoses Not on filedocumented in this encounter Care Teams Acidity Tester Relationship Specialty Start Date End Date Kay Caldwell MD [address] [place] [address] [address] [place] [address] PCP - General Family Medicine 08/15/22 documented as of this encounter
--- OUTSIDE RECORDS SUMMARY | 2024-09-18 01:21 | XMS_ITS | Encounter Summary ---
Author Organization 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 Procedures PRO INJ, FORAMEN, L/S, 1 LEVEL INJECTION, ANESTHETIC AGENT AND/OR STEROID, TRANSFORAMINAL EPIDURAL, LUMBAR OR SACRAL, SINGLE LEVEL (WRVU 1.9) Jose Tai MD [facility] [place] [address] [facility] Referral ID Status Reason Start Date Expiration Date Visits Re quested Visits Authorized [id number] 1 1 Encounter Details Date Type Department Care Team (Late st Contact Info) Description 11/09/2022 3:30 PM EST Ancillary [place] [address] Jose Tai MD [facility] [place] [address] Social History Tobacco Use Types Packs/Day Years [...] AM EST Office Visit Hematology/Oncology at [address] [phone] Erica Yi APRN [address] [place] [address] DR MEDICAL ONCOLOGY [place], [place] [address] 09/18/2024 11:00 AM EST Infusion Hematology Oncology at [address] [phone] 10/01/2024 3:45 PM EST Office Visit Functional Lutheran Program at [address] [place] [address] Gene Julien Jr., PT 12/23/2024 8:00 AM EST Appointment XRay at [address] [place] [address] River Ochoa MD [address] [place], [place] [address] 01/21/2025 1:00 PM EDT Office Visit Radiation Oncology at [address] [phone] Tory Salazar PA [facility] [place] [address] documented as of this encounter Procedures Procedure Name Priority Date/Time Associated Diagnosis Comments FILM LIBRARY STORAGE ONLY PAIN CLINIC C ARM Routine 11/09/2022 4:24 PM EST documented in this encounter Results * Film Library- Storage Only pain Clinic C-Arm (11/09/2022 4:24 PM EST) Narrative [facility] - 11/09/2022 4:24 PM EST See PACS for result report. Jose Tai MD IMG FILM LIBRARY ORD ERABLES [facility] [place] documented in this encounter Visit Diagnoses Not on filedocumented in this encounter Care Teams Stitch Cleaner Relationship Specialty Start Date End Date Kay Caldwell MD [address] [place] [address] [address] [place] [address] PCP - General Family Medicine 08/15/22 documented as of this encounter
--- OUTSIDE RECORDS SUMMARY | 2024-09-18 01:21 | XMS_ITS | Encounter Summary ---
Author Organization [facility] [place] [address] Care Team Providers Care Sound Engineering Technician Name Role Phone Kay Caldwell MD Primary Care Provider [phone] Encounter Details Date Type Department Care Team (Latest Contact Info) Description 09/06/2022 Travel Social History Tobacco Use Types Packs/Day [...] AM EST Office Visit Hematology/Oncology at [address] [phone] Erica Yi APRN [address] [place] [address] DR MEDICAL ONCOLOGY [place], [place] [address] 09/18/2024 11:00 AM EST Infusion Hematology Oncology at [address] [phone] 10/01/2024 3:45 PM EST Office Visit Functional Sikh Program at [facility] [address] [place] [address] Gene Julien Jr., PT 12/23/2024 8:00 AM EST Appointment XRay at [facility] [place] [address] River Ochoa MD [address] [place] [address] 01/21/2025 1:00 PM EDT Office Visit Radiation Oncology at [address] [phone] Tory Salazar PA [facility] DR HEMATOLOGY [place] [address] documented as of this encounter Visit Diagnoses Not on filedocumented in this encounter Care Teams Sound Engineering Technician Relationship Specialty Start Date End Date Kay Caldwell MD [address] [place] [address] [address] [place] [address] PCP - General Family Medicine 08/15/22 documented as of this encounter
--- OUTSIDE RECORDS SUMMARY | 2024-09-18 01:21 | XMS_ITS | Encounter Summary ---
[place] [address] Care Team Providers Care Scrap Picker Name Role Phone Kay Caldwell MD Primary Care Provider [phone] Reason for Referral * Diagnostic Test (Routine) - Closed Specialty Diagnoses / Procedures Referred By Contac t Referred To Contact Diagnoses Back pain Procedures MRI Lumbar Spine wo Contrast (Generic) [facility] [place] [address] Referral ID Status Reason Start Date Expiration Date V isits Requested Visits Authorized [id number] Closed Specialty Service Requested 09/14/2022 03/14/2024 1 1 * Diagnostic Test (Routine) - Closed Specialty Diagnoses / Procedures Referred By Contac t Referred To Contact Diagnoses Back pain Procedures MRI Lumbar Spine wo Contrast (Generic) [facility] [place] [address] Referral ID Status Reason Start Date Expiration Date V isits Requested Visits Authorized [id number] Closed Specialty Service Requested 09/14/2022 03/14/2024 1 1 Encounter Details Date Type Department Care Team (Late st Contact Info) Description 09/14/2022 External Results [facility] [place] [address] Provider, Scanning Social History Tobacco Use Types Packs/Day Years [...] 10:30 AM EST Office Visit Hematology/Oncology at [address] [phone] Erica Yi, DECK HAND [address] [place] [address] DR MEDICAL ONCOLOGY [place], [place] [phone] 09/18/2024 11:00 AM EST Infusion Hematology Oncology at [address] [phone] 10/01/2024 3:45 PM EST Office Visit Functional Holiness Program at [facility] [address] [place] [address] Gene Julien Jr., PT 12/23/2024 8:00 AM EST Appointment XRay at [address] [place] [address] River Ochoa MD [address] [place] [address] 01/21/2025 1:00 PM EDT Office Visit Radiation Oncology at [address] [phone] Tory Salazar PA [facility] [place] [address] documented as of this encounter Procedures Procedure Name Priority Date/Time Associated Diagnosis Comments MRI LUMBAR SPINE WITHOUT CONTRAST Routine 03/13/2022 MRI LUMBAR SPINE WITHOUT CONTRAST Routine 03/13/2022 documented in this encounter Results * MRI Lumbar Spine wo Contrast (Generic) (03/13/2022) Anatomical Region Laterality Modality L-spine Magnetic Resonan ce Historical Provider MD BLEVINS MRI ORDERABLE S * MRI Lumbar Spine wo Contrast (Generic) (03/13/2022) Anatomical Region Laterality Modality L-spine Magnetic Resonan ce Historical Provider MD BLEVINS MRI ORDERABLE S documented in this encounter Visit Diagnoses Not on filedocumented in this encounter Care Teams Scrap Picker Relationship Specialty Start Date End Date Kay Caldwell MD [address] [place] [address] [place] [address] PCP - General Family Medicine 08/15/22 documented as of this encounter
--- OUTSIDE RECORDS SUMMARY | 2024-09-18 01:21 | XMS_ITS | Encounter Summary ---
Author Organization [facility] [place] [address] Care Team Providers Care Steel Inspector Name Role Phone Unavailable Primary Care Provider Unavailabl e Encounter Details Date Type Department Care Team (Late st Contact Info) Description 03/13/2022 Ancillary Procedure Radiology Library at [facility] [place] [address] Jazmín Santiago SILK SCREEN PRINTER [facility] [place] [address] Social History Tobacco Use Types Packs/Day Years [...] AM EST Office Visit Hematology/Oncology at [address] [phone] MEDICAL ONCOLOGY [place], [place] [address] 09/18/2024 11:00 AM EST Infusion Hematology Oncology at [address] [phone] 10/01/2024 3:45 PM EST Office Visit Functional Worship Program at [facility] [address] [place] [phone] Gene Julien Jr., PT 12/23/2024 8:00 AM EST Appointment XRay at [address] [place] [address] River Ochoa MD [address] [place] [address] 01/21/2025 1:00 PM EDT Office Visit Radiation Oncology at [address] [phone] Tory Salazar PA [facility] HEMATOLOGY AND ONCOLOGY [place] [address] documented as of this encounter Procedures Procedure Name Priority Date/Time Associated Diagnosis Comments FILM LIBRARY STORAGE ONLY MR SPINE Routine 03/13/2022 12:00 AM EDT documented in this encounter Results * Film Library- Storage Only MR Spine (03/13/2022 12:00 AM EDT) Narrative [facility] - 09/06/2022 8:12 AM EDT This exam is auto-finalizing. It's purpose is for storage only. Jazmín Santiago APRN IMG FILM LIBRARY OR DERABLES [facility] [place] documented in this encounter Visit Diagnoses Not on filedocumented in this encounter
--- OUTSIDE RECORDS SUMMARY | 2024-09-18 01:21 | XMS_ITS | Encounter Summary ---
Author Organization [facility] Address [address] [place] [address] Care Team Providers Care Top Knitter Name Role Phone Dina Garcia MD Primary Care Provider [phone] Encounter Details Date Type Department Care Team (Latest Contact Info) Description 12/30/2019 Travel Social History Tobacco Use Types Packs/Day [...] on filedocumented in this encounter Care Teams Top Knitter Relationship Specialty Start Date End Date Dina Garcia MD [address] [address] PCP - General 02/20/16 documented as of this encounter
--- OUTSIDE RECORDS SUMMARY | 2024-09-18 01:21 | XMS_ITS | Referral Summary ---
Author Organization [facility] Address [address] [place] [address] Care Team Providers Care Grades 7 And 8 Teacher Name Role Phone Dina Garcia MD Primary Care Provider [phone] Allergies Active Allergy Reactions Criticality Noted Date Comments Morphine Nausea And Vomiting 12/03/2014 Medications Medication Sig Dispensed Refills Start Date End Date Status simvastatin (ZOCOR) 20 mg tablet Take 20 mg by mouth at bedtime. Active venlafaxine (EFFEXOR XR) 37.5 mg XR capsule Take 37.5 mg by mouth daily. Active MULTIVITAMIN ORAL Take by mouth 2 times daily . Active POTASSIUM ORAL Take by mouth daily. Active QUEtiapine (SEROQUEL) 25 mg tablet Take 25 mg by mouth at bedtime. Active lisinopril (PRINIVIL, ZESTRIL) 10 mg tablet Take 10 mg by mouth daily. Active cholecalciferol, Vitamin D3, 1,000 unit tablet Take 1,000 Units by mouth daily. Active cyanocobalamin (VITAMIN B-12) 1,000 mcg tablet Take 1,000 mcg by mouth daily. Active [place]-3 Fatty Acids-Vitamin E (FISH OIL) 1,000 mg capsule Take by mouth 2 times daily. Active PEG 3350-Electrolytes (MIRALAX) 17 gram packet Take 17 g by mouth as needed. Active clobetasol (TEMOVATE) 0.05 % ointment Apply topically as needed. Active triamcinolone (KENALOG) 0.1 % ointment Apply thi layer to the vulvar prn itching 30 g 06/06/2018 Active conjugated estrogens 0.625mg/G (PREMARIN) vaginal cream Place 0.5 g vaginally daily x1 month 1 Tube 5 06/24/2018 Active omeprazole (PRILOSEC) 20 mg capsule 10/30/2019 Active Social History Tobacco Use Types Packs/Day Years [...] Sign Reading Time Taken Comments Blood Pressure 141/69 04/30/2016 0936 EDT Pulse 67 01/13/2020 1331 EST Temperature 36.3 ??C (97.3 ??F) 02/21/2016 1645 EDT Respiratory Rate 15 02/21/2016 1630 EDT Oxygen Saturation 94% 01/13/2020 1331 EST Inhaled Oxygen Concentration - - Weight 95.7 kg (211 lb) 04/30/2016 0936 EDT Height 160 cm (5' 2.99) 04/30/2016 0936 EDT Body Mass Index 37.39 04/30/2016 0936 EDT Plan of Treatment Not on file Care Teams Grades 7 And 8 Teacher Relationship Specialty Start Date End Date Dina Garcia MD [address] [address] PCP - General 02/20/16
--- OUTSIDE RECORDS SUMMARY | 2024-09-18 01:21 | XMS_ITS | Encounter Summary ---
Author Organization [facility] [place] [address] Care Team Providers Care Volunteer Services Manager Name Role Phone Kay Caldwell MD Primary Care Provider [phone] Reason for Visit * Auth/Cert Specialty Diagnoses / Procedures Referred By Contac t Referred To Contact Diagnoses lumbar formainal stenosis with right flank pain Procedures PRO INJ, FORAMEN, L/S, 1 LEVEL PRO INJ, FORAMEN, L/S, ADDL LEVELS INJECTION, ANESTHETIC AGENT AND/OR STEROID, TRANSFORAMINAL EPIDURAL, LUMBAR OR SACRAL, SINGLE LEVEL (WRVU 1.9) INJECTION, ANESTHETIC AGENT AND/OR STEROID, TRANSFORAMINAL EPIDURAL, LUMBAR OR SACRAL, EACH ADDITIONAL LEVEL (WRVU 1) Cosmo Blanco MD [facility] [place] [address] [facility] Referral ID Status Reason Start Date Expiration Date Visits Re quested Visits Authorized [id number] 1 1 Encounter Details Date Type Department Care Team (Late st Contact Info) Description 10/09/2022 9:00 AM EST [place]illary [place] [phone] Cosmo Blanco MD [facility] [place] [address] Social History Tobacco Use Types Packs/Day Years [...] 10:30 AM EST Office Visit Hematology/Oncology at [address] [phone] Erica Yi APRN [address] [place] [address] DR MEDICAL ONCOLOGY [place], [place] [id number] 09/18/2024 11:00 AM EST Infusion Hematology Oncology at [address] [phone] 10/01/2024 3:45 PM EST Office Visit [facility] at [address] [phone] Gene Julien Jr., PT 12/23/2024 8:00 AM EST Appointment XRay at [address] [place] [phone] River Ochoa MD [address] [place] [address] 01/21/2025 1:00 PM EDT Office Visit Radiation Oncology at [address] [phone] Tory Salazar PA [facility] HEMATOLOGY [place] [address] documented as of this encounter Procedures Procedure Name Priority Date/Time Associated Diagnosis Comments FILM LIBRARY STORAGE ONLY PAIN CLINIC C ARM Routine 10/09/2022 11:25 AM EST documented in this encounter Results * Film Library- Storage Only pain Clinic C-Arm (10/09/2022 11:25 AM EST) Narrative [facility] - 10/09/2022 11:25 AM EST See PACS for result report. Cosmo Blanco MD [facility] FILM LIBRARY ORD ERABLES RAD [place] documented in this encounter Visit Diagnoses Not on filedocumented in this encounter Care Teams Volunteer Services Manager Relationship Specialty Start Date End Date Kay Caldwell MD [address] [place] [address] [place] [address] PCP - General Family Medicine 08/15/22 documented as of this encounter
--- OUTSIDE RECORDS SUMMARY | 2024-09-18 01:21 | XMS_ITS | Encounter Summary ---
Author Organization [facility] Address [address] [place] [address] Care Team Providers Care Medical Assembler Name Role Phone Dina Garcia MD Primary Care Provider [phone] Encounter Details Date Type Department Care Team (Latest Contact Info) Description 02/21/2016 11:10 EDT - 02/21/2016 16:54 EDT Hospital Encounter [facility] Perioperative Services - [address] [address] Judith Horan MD [address] [place] [id number] Discharge Disposition: Home or Self Care Social History Tobacco Use Types Packs/Day Years [...] Sign Reading Time Taken Comments Blood Pressure 139/64 02/21/2016 1630 EDT Pulse - - Temperature 36.3 ??C (97.3 ??F) 02/21/2016 1645 EDT Respiratory Rate 15 02/21/2016 1630 EDT Oxygen Saturation 100% 02/21/2016 1630 EDT Inhaled Oxygen Concentration - - Weight 95.3 kg (210 lb) 02/13/2016 1149 EDT Height 160 cm (5' 3) 02/13/2016 1149 EDT Body Mass Index 37.2 02/13/2016 1149 EDT documented in this encounter Discharge Instructions * Discharge Instr - Activity* Judith Horan MD - 02/21/2016 15:26 EDT As discussed. Nothing pv until postop check * Discharge Instr - Diet* Judith Horan MD - 02/21/2016 15:26 EDT Regular * Discharge Instr - Other Orders* Judith oHran MD - 02/21/2016 15:27 EDT Patient must void before leaving PACU documented in this encounter Medications at Time of Discharge Medication Sig Dispensed Refills Start Date End Date cholecalciferol, Vitamin D3, 1,000 unit tablet Take 1,000 Units by mouth daily. clobetasol (TEMOVATE) 0.05 % ointment Apply topically as needed. cyanocobalamin (VITAMIN B-12) 1,000 mcg tablet Take 1,000 mcg by mouth daily. lisinopril (PRINIVIL, ZESTRIL) 10 mg tablet Take 10 mg by mouth daily. MULTIVITAMIN ORAL Take by mouth 2 times daily . Lincoln-3 Fatty Acids-Vitamin E (FISH OIL) 1,000 mg capsule Take by mouth 2 times daily. PEG 3350-Electrolytes (MIRALAX) 17 gram packet Take 17 g by mouth as needed. POTASSIUM ORAL Take by mouth daily. QUEtiapine (SEROQUEL) 25 mg tablet Take 25 mg by mouth at bedtime. simvastatin (ZOCOR) 20 mg tablet Take 20 mg by mouth at bedtime. venlafaxine (EFFEXOR XR) 37.5 mg XR capsule Take 37.5 mg by mouth daily. aspirin chewable 81 mg tablet Take 81 mg by mouth daily. 12/30/2019 conjugated estrogens 0.625mg/G (PREMARIN) vaginal cream Place 0.5 g vaginally daily. 06/24/2018 OMEPRAZOLE ORAL Take 40 mg by mouth daily. 12/30/2019 oxyCODONE (ROXICODONE) 5 mg immediate release tablet Take 1 Tab by mouth every 4 hours as needed for Pain. Daily Max: 30 mg 8 Tab 0 02/21/2016 06/02/2018 documented as of this encounter Ordered Prescriptions Prescription Sig Dispensed Refills Start Date End Da te oxyCODONE (ROXICODONE) 5 mg immediate release tablet Take 1 Tab by mouth every 4 hours as needed for Pain. Daily Max: 30 mg 8 Tab 0 02/21/2016 06/02/2018 documented in this encounter Discharge Disposition Disposition Code Departure Means Destination Home or Self Care documented in this encounter Progress Notes * Maria Isabel Arriaga, ALEXANDER - 02/21/2016 1700 EDT 1654 VSS, minimal discomfort, oob ambulated to restroom to void. Ready for home care. * Brenda Bravo RN - 02/13/2016 1200 EDT Josselyn Garduno has been instructed as follows regarding medication administration for the day ofthe scheduled procedure. Date of Surgery: 02/21/2016 Instructions for Taking Medications Day of Surgery Medication Sig Last Dose Hold DOS Take DOS aspirin chewable 81 mg tablet Take 81 mg by mouth daily. Yes CALCIUM ORAL Take by mouth daily. No longer taking cholecalciferol, Vitamin D3, 1,000 unit tablet Take 1,000 Units by mouth daily. 02/14/2016 clobetasol (TEMOVATE) 0.05 % ointment Apply topically as needed. yes conjugated estrogens 0.625mg/G (PREMARIN) vaginal cream Place 0.5 g vaginally daily. yes cyanocobalamin (VITAMIN B-12) 1,000 mcg tablet Take 1,000 mcg by mouth daily. 02/14/2016 lisinopril (PRINIVIL, ZESTRIL) 10 mg tablet Take 10 mg by mouth daily. Yes MULTIVITAMIN ORAL Take by mouth 2 times daily . 02/14/2016 Lincoln-3 Fatty Acids-Vitamin E (FISH OIL) 1,000 mg capsule Take by mouth 2 times daily. 02/14/2016 OMEPRAZOLE ORAL Take 40 mg by mouth daily. Yes PEG 3350-Electrolytes (MIRALAX) 17 gram packet Take 17 g by mouth as needed. yes POTASSIUM ORAL Take by mouth daily. No longer taking QUEtiapine (SEROQUEL) 25 mg tablet Take 25 mg by mouth at bedtime. Yes simvastatin (ZOCOR) 20 mg tablet Take 20 mg by mouth at bedtime. Yes venlafaxine (EFFEXOR XR) 37.5 mg XR capsule Take 37.5 mg by mouth 3 times daily . Yes documented in this encounter H&P Notes * Judith Horan MD - 02/21/2016 1202 EDT The preoperative history and physical which was performed within 30 days of this procedure has been reviewed and the clinically appropriate elements of the physical examination have been repeated. There are no changes to the documented history and physical or if so such changes are documented below Judith Horan MD 02/21/2016 12:02 documented in this encounter OR Notes * OR Surgeon - Judith Horan MD - 02/21/2016 1751 EDT OPERATIVE REPORT SERVICE DATE: 02/21/2016 PREOPERATIVE DIAGNOSIS: Genuine stress incontinence. POSTOPERATIVE DIAGNOSIS: Genuine stress incontinence. PROCEDURE: Altis suburethral sling and cystoscopy. SURGEON: Judith Horan MD FAGOT MAKER: Glen Yu MD ANESTHESIA: LMA. NARRATIVE: The patient was taken to the operating room where LMA anesthesia was administered. The patient was placed in stirrups and prepped and draped in the usual fashion for vaginal surgery. The bladder was catheterized of clear urine. Anterior vaginal wall was grasped with Allis clamps in the midurethral portion. A dilute solution of vasopressin was infiltrated and a vertical incision was made. The urethra was dissected free from the overlying mucosa. The sling was placed into the obturatormembrane just behind the descending pubic ramus bilaterally using the provided trocars. Traction was placed on the tensioning suture with elevation of the sling against the urethra. The tensioning suture was cut. At this point, cystoscopy was performed. The urethra and bladder were noted to be normal in their entirety. There was no evidence of perforation. Cystoscope was removed. Thrombin-soaked Gelfoam was placed into the periurethral spaces and hemostasis was achieved with electrocautery. Theanterior vaginal wall was closed with a running locking suture of 3-0 Vicryl. The patient toleratedthe procedure well and was taken to the recovery room in good condition. All counts were correct atthe completion of the procedure. Unless otherwise noted, there were no complications, no blood loss, no cultures obtained, no specimens removed, and no drains retained. Judith Horan MD 03 22 PM / Judith Horan MD rn Confirmation: [id number] Dictation ID: [id number] documented in this encounter Miscellaneous Notes * Anesthesia Post-Eval - Fam Cross - 02/21/2016 1647 EDT Post Anesthesia Evaluation Note Date of Service: 02/21/2016 Josselyn Garduno, a 70 y.o. year old female has received General Anesthesia today. She has been evaluated, assessed and discharged from anesthesia care with stable cardiorespiratory function and alert mental status. The last set of recorded vital signs and pain rating were reviewed: Temp: 36.5 ??C (97.7 ??F), Heart Rate: 67 BPM, BP: 139/64 mmHg, Resp: 15, SpO2: 100 %,Numeric Pain Level (Scale 1-10): 4 Josselyn Garduno participated in this evaluation unless otherwise noted. Her pain, nausea and vomiting have been managed and her body temperature and fluid balance have been restored. Additional monitoring and assessment needs have been addressed. If present, any postoperative events are documented below. Fam Cross MD 02/21/2016 16:47 * Brief Op Note - Glen Yu MD - 02/21/2016 1417 EDT Brief Post-Op Note Date of Surgery: 02/21/2016 Surgeon: Judith Horan MD Assistants: Glen Yu MD Pre-Op Diagnosis: Stress Urinary Incontinence Post-Op Diagnosis: Same Procedure(s): Suburethral sling (Altis) and cystoscopy Findings: 2cm incision made along the anterior vaginal wall in order to dissect down to the mid-urethra. Mid-urethra identified. Altis sling was placed bilaterally. Sling was placed into a good position around the urethra. Hemostasis was achieved with electrocautery. Cystoscopy was performed, and we did not identify any suture or sling material within the bladder or the urethra. No injury identified to the bladder or the urethra. Both UOs identified. Incision was closed with running, locking vicryl suture. No complications. Anesthesia Type: General Estimated Blood Loss: Unless otherwise noted, there was no blood loss, specimens removed, cultures obtained, or drains retained. The estimated blood loss was less than 50 mL Fluids: Josselyn Garduno received 500cc of fluid replacement. Urine Output: Not recorded Specimens/Cultures: None Drains/Packs: None Complications: None Disposition and Condition: Josselyn Garduno was sent to PACU in Good condition. Glen Yu MD 02/21/2016 14:17 documented in this encounter Plan of Treatment Not on file documented as of this encounter Procedures Procedure Name Priority Date/Time Associated Diagnosis Comments IMPLANT RECORD - SCANNED 03/02/2016 9:28 EDT IMPLANT RECORD - SCANNED 02/24/2016 12:14 EDT ECG REPORT - SCANNED 02/24/2016 12:14 EDT documented in this encounter Results * IMPLANT RECORD - SCANNED (03/02/2016 9:28 EDT) 03/02/2016 9:28 EDT Scan 2 Inspector Structural Bonding PROCEDURE/MINOR MARILEE GICAL ORDERABLES * IMPLANT RECORD - SCANNED (02/24/2016 12:14 EDT) 02/24/2016 12:1 4 EDT Scan 2 Inspector Structural Bonding PROCEDURE/MINOR MARILEE GICAL ORDERABLES * ECG REPORT - SCANNED (02/24/2016 12:14 EDT) 02/24/2016 12:1 4 EDT Scan 2 Inspector Structural Bonding PROCEDURE/MINOR MARILEE GICAL ORDERABLES documented in this encounter Visit Diagnoses Not on filedocumented in this encounter Administered Medications Inactive Administered Medications - up to 3 most recent administrations Medication Order MAR Action Action Date Dose Rate Site ceFAZolin (ANCEF) syringe 1 g 1 g, intravenous, Administer over 10 Minutes, PRE-OP ONCE, 1 dose, On 02/21/16 at 1230, Routine Given by Other 02/21/2016 14:55 EDT 1 g lactated ringers (LR) infusion at 25 mL/hr, intravenous, CONTINUOUS, Starting on 02/21/16 at 1145, Until 02/21/16 at 1907, Routine, Pre Op Day of Surgery New Bag 02/21/2016 11:58 EDT 25 mL/hr oxyCODONE (ROXICODONE) immediate release tablet 5 mg 5 mg, oral, PRN, 2 doses, Starting on 02/21/16 at 1517, Until 02/21/16 at 1907, Pain, Routine, Recovery (only) Given 02/21/2016 16:03 EDT 5 mg documented in this encounter Discontinued Medications Medication Sig Discontinue Reason Start Date End Da te CALCIUM ORAL Take by mouth daily. Error 02/21/2016 documented as of this encounter Historical Medications * This list may reflect changes made after this encounter. Medication Sig Dispensed Refills Start Date End Date clobetasol (TEMOVATE) 0.05 % ointment Apply topically as needed. PEG 3350-Electrolytes (MIRALAX) 17 gram packet Take 17 g by mouth as needed. added in this encounter Active and Recently Administered Medications Times are shown in EDT. Scheduled Medication Order 02/19/2016 02/20/2016 02/21/2016 ceFAZolin (ANCEF) syringe 1 g (COMPLETED) 1 g, intravenous, Administer over 10 Minutes, PRE-OP ONCE, 1 dose, On Sat02/21/16 at 1230, Routine 1455 (Given by Other - Provider: Paola Pritchett RN - Comment: Given in O.R. by Leena Villaseñor) Continuous Medication Order 02/19/2016 02/20/2016 02/21/2016 lactated ringers (LR) infusion (CANCELED) at 25 mL/hr, intravenous, CONTINUOUS, Starting on Sat02/21/16 at 1145, Until Sat02/21/16 at 1907, Routine, Pre Op Day of Surgery 1158 (New Bag - Prov ider: Dana Holley RN)1545 (Completed - Provider: Maria Isabel Reece RN) PRN Medication Order 02/19/2016 02/20/2016 02/21/2016 oxyCODONE (ROXICODONE) immediate release tablet 5 mg (CANCELED) 5 mg, oral, PRN, 2 doses, Starting on Sat02/21/16 at 1517, Until Sat02/21/16 at 1907, Pain, Routine, Recovery (only) 1603 (Given - Provid er: Maria Isabel Reece RN) documented in this encounter Orders Medications Ordered That Jean Paul ht Not Have Been Administered Count Last Ordered Date First Ordered Date acetaminophen (TYLENOL) tablet 325 mg 1 10/2016 atropine 0.1 mg/mL syringe 0.5 mg 1 016 diphenhydrAMINE (BENADRYL) i njection 6.25 mg 1 02/21/2016 fentaNYL citrate (PF) 50 mcg /mL injection 25-100 mcg 1 02/21/2016 lactated ringers (LR) infusion 1 02/21/2016 midazolam (PF) (VERSED) 1 mg /mL injection 1 mg 1 02/21/2016 nalOXone (NARCAN) injection 0.2 mg 1 2015 ondansetron (PF) (ZOFRAN) injection 2 mg 1 02/21/2016 Nursing Count Last Ordered Date First Orde red Date INSERT PERIPHERAL IV 1 02/21/[address] SEQUENTIAL COMPRESSION DEVICE 1 02/20 Transfer Count Last Ordered Date First Orde red Date NOTIFY PPS PACU PATIENT DISCHARGE 1 016 Discharge Count Last Ordered Date First Orde red Date DISCHARGE PATIENT 1 02/21/2016 documented in this encounter Care Teams Medical Assembler Relationship Specialty Start Date End Date Dina Garcia MD [address] [address] PCP - General 02/20/16 documented as of this encounter
--- OUTSIDE RECORDS SUMMARY | 2024-09-18 01:21 | XMS_ITS | Encounter Summary ---
Author Organization Formerly [facility] [place] [address] Care Team Providers Care Spindle Tester Name Role Phone Kay Caldwell MD Primary Care Provider [phone] Reason for Visit * Auth/Cert (Routine) Specialty Diagnoses / Procedures Referred By Contac t Referred To Contact Diagnoses Lumbar Radiculopathy Procedures PRO INJECTION DX/THER SBST INTRLMNR LMBR/SAC W/IMG GDN INJECTION, EPIDURAL, LUMBAR OR SACRAL (CAUDAL), WITH IMAGING GUIDANCE (WRVU 1.8) Jose Tai MD [facility] [place] [address] [facility] Referral ID Status Reason Start Date Expiration Date Visits Re quested Visits Authorized [id number] 1 1 Encounter Details Date Type Department Care Team (Late st Contact Info) Description 11/21/2022 10:00 AM EST - 11/21/2022 10:30 AM EST [place] [address] Jose Tai MD [facility] [place] [address] INJECTION, EPIDURAL, LUMBAR OR SACRAL (CAUDAL), WITH IMAGING GUIDANCE (WRVU 1.8) Social History Tobacco Use Types Packs/Day Years Used Date Smoking Tobacco: Former Smokeless Tobacco: Never Sex and Gender Information Value Date Recorded Sex Assigned at Not on file Gender Identity Not on file Sexual Orientation Not on file documented as of this encounter Last Filed Vital Signs Vital Sign Reading Time Taken Comments Blood Pressure 153/79 11/21/2022 10:30 AM EST Pulse - - Temperature - - Respiratory Rate - - Oxygen Saturation 98% 11/21/2022 10:30 AM EST Inhaled Oxygen Concentration - - Weight - - Height - - Body Mass Index - - documented in this encounter Medications at Time of Discharge Medication Sig Dispensed Refills Start Date End Date nystatin (MYCOSTATIN) 100,000 unit/gram Powder Prn 06/27/2022 multivitamin (THERAGRAN) Tablet Take 1 tablet by mouth daily. HERBAL DRUGS ORAL Take by mouth. Villalba Wort, lemon balm, passiflora, leonorus, hypericum ACETAMINOPHEN [...] H&P Notes * Jose Tai MD - 11/20/2022 6:47 PM ESTSummary: Right L2/3 LESI H&P Patient Name: Josselyn Garduno Patient Age: 77 y.o. Birthdate: 1945 Admit date: (Not on file) Attending Physician: Jose Tai MD PREPROCEDURE HISTORY AND PHYSICAL Date of Visit: November 20, 2022 Chief Complaint: Lower back pain HPI: Subjective Josselyn Garduno is a 77 y.o. female who presents today for Procedure: Right L2/3 LESI The patient denies any recent NSAID or anticoagulation. The patient denies any allergy to local anesthetics, contrast dye, or steroids. The history is obtained from the patient, and I have reviewed medical records provided by the referring physician and located in the electronic medical record to fill in gaps in the patient's recollection of events, treatments and outcomes. LOCATION: Lower back and right groin and thigh. PAIN LEVEL AT REST 8/10 PAST MEDICAL HISTORY: No past medical history on file. PAST SURGICAL HISTORY: Past Surgical History: Procedure Laterality Date ??? PRO INJ, FORAMEN, L/S, 1 LEVEL Right 10/09/2022 INJECTION, ANESTHETIC AGENT AND/OR STEROID, TRANSFORAMINAL EPIDURAL, LUMBAR OR SACRAL, SINGLE LEVEL(WRVU 1.9) performed by Cosmo Blanco MD at [facility] ??? PRO INJ, FORAMEN, L/S, 1 LEVEL Right 11/09/2022 INJECTION, ANESTHETIC AGENT AND/OR STEROID, TRANSFORAMINAL EPIDURAL, LUMBAR OR SACRAL, SINGLE LEVEL(WRVU 1.9) performed by Jose Tai MD at [facility] ??? PRO INJ, FORAMEN, L/S, ADDL LEVELS Right 10/09/2022 INJECTION, ANESTHETIC AGENT AND/OR STEROID, TRANSFORAMINAL EPIDURAL, LUMBAR OR SACRAL, EACH ADDITIONAL LEVEL (WRVU 1) performed by Cosmo Blanco MD at [facility] ALLERGIES: Opioids - morphine analogues MEDICATIONS: No current facility-administered medications on file prior to encounter. Current Outpatient Medications on File Prior to Encounter Medication Sig Dispense Refill ??? multivitamin (THERAGRAN) Tablet Take 1 tablet by mouth daily. ??? ergocalciferol, vitamin D2, (VITAMIN D ORAL) Take by mouth. ??? HERBAL DRUGS ORAL Take by mouth. Villalba Wort and other ingredients (pt unsure) ??? ACETAMINOPHEN ORAL Take by mouth as needed. ??? lisinopriL (Zestril) 10 mg Tablet ??? omeprazole (PriLOSEC) 20 mg Capsule, Delayed Release(E.C.) ??? simvastatin (Zocor) 20 mg Tablet nightly. FAMILY [...] Smoking status: Former ??? Smokeless tobacco: Never Substance and Sexual Activity ??? Alcohol use: [...] file Housing Stability: Not on file ROS: Pt denies recent fever, chills, infection, wounds, hospitalizations, ED visits, use of antibiotics.Otherwise, as described above. PHYSICAL EXAM: There were no vitals taken for this visit. Physical Exam Constitutional: Pt oriented to person, place, and time. Appears well-developed and well-nourished. No distress. HENT: Normocephalic and atraumatic. Pulmonary/Chest: Effort normal. Neurological: Alert and oriented to person, place, and time. No cranial nerve deficit. Moves all extremities at least antigravity Skin: Skin is warm and dry. No rash noted. Not diaphoretic. Psychiatric: Normal mood and affect. RADIOLOGIC DATA: Relevant imaging reviewed LABS/DX RESULTS: Last 3 wbc, hgb, hct plt No results for input(s): WBC, HGB, HCT, PLATELET in the last 7068 hours. Last 3 Lytes No results for input(s): NA, K, CL, CO2, BUN, CREATININE in the last 7068 hours. Last 3 LFTs No results for input(s): AST, ALT, ALKPHOS, BILITOT, BILIDIR in the last 7068 hours. Last 3 Coags No results for input(s): PT, INR, PTT in the last 168 hours. Last 3 HgbA1C No results for input(s): HA1C in the last 7068 hours. ASSESSMENT: 1. Lumbar radiculopathy PLAN: Proceed with planned Right L2/3 LESI. Addressed all questions and concerns. Risks and benefits discussed with patient. No contraindications to the procedure at this time, will proceed. Noe Mosqueda DO Pain Medicine Fellow [facility] Office: Pager: [phone] I have seen and examined the patient and reviewed the fellow's above history and agree with the details as written. The assessment and plan were formulated in discussion with me, and I agree with them as documented. Jose Tai MD, [place] [employer] Supervisor of Anesthesiology [facility] [address] [address] / [facility] documented in this encounter Miscellaneous Notes * Op Note - Jose Tai MD - 11/21/2022 10:23 AM EST Pain Management Operative Note Patient Name: Josselyn Garduno : [id number] MR#: [id number] Case Date: 11/21/2022 Surgeon: Surgeon(s) and Role: * Jose Tai MD - Primary * Noe Mosqueda DO - Fellow Present on Admission: ??? Radiculopathy of lumbar region Postoperative diagnosis: Same Procedure(s) (LRB): INJECTION, EPIDURAL, LUMBAR OR SACRAL (CAUDAL), WITH IMAGING GUIDANCE (WRVU 1.8) (Right) LUMBAR INTERLAMINAR EPIDURAL STERIOID INJECTION PROCEDURE NOTE Ms. Josselyn Garduno has been referred to the Pain Management Center for a lumbar epidural steroidinjection by Unknown None. The patient complains of low back pain with pain radiating down the right leg. Ms. Garduno was greeted by the nurse who verified patients name and . The patient was then taken to the fluoroscopy suite. Ms. Garduno was interviewed and the medical record reviewed. There were no medical, pharmacologic,radiographic, or other structural contraindications to attempting fluoroscopically guided lumbar epidural steroid injection. Risks and potential side effects, as well as potential benefits of the procedure were reviewed with Ms. Garduno. Her voiced concerns were addressed. After I was assured thatinformed consent was obtained, the patient consent form was signed. Standard time-out procedure wasperformed. Ms. Garduno was placed in the prone position on the fluoroscopy table and automated blood pressurecuff and pulse oximeter applied. The skin entry point for entering/approaching the L2-L3 epidural space for the lumbar epidural steroid injection was marked. Following thorough chlorhexadine preparation of the skin and draping and 1% lidocaine infiltration of the skin entry point and subcutaneous tissues, an 18 gauge Touhy needle was placed and advanced under fluoroscopic guidance and with loss of resistance technique into the L2-L3 epidural space. Needle tip placement and depth were aided and confirmed by fluoroscopy. There was no paresthesia or return of blood or CSF through the needle. 2 cc's of Omnipaque 240 was injected (48 cc's was wasted) with clear epidural spread confirmed with fluoroscopy. 15 mg of preservative-free Dexamethasone (10 mg/cc) was injected (5 mg was wasted). This was followed by 1 cc of preservative-free normal saline to flush the steroid out of the needle. Therewas not any unusual discomfort expressed by Ms. Garduno. (48 cc of Omnipaque and 5 mg of Dexamethasone was wasted) Ms. Garduno's vital signs were stable throughout the procedure and were as recorded in nursing records. Follow up plans and appointments were discussed with Ms. Garduno. The patient is set to follow up with Dr. Tai by telephone in 2-3 weeks. Post procedure instruction was given as documented in nursing records and having met discharge criteria he was discharged from the Pain Management Center. Comments: If this procedure is successful in helping with pain and improving her function, it can be completed a maximum of 3 times every 12 months. Her post- procedure pain level was 3/10. I was the attending physician supervising Dr. Noe Mosqueda in the above care and I was present with the resident for the entire procedure. Jose Tai MD CC: Unknown None documented in this encounter Plan of Treatment Upcoming Encounters Date Type Department Care Team (Late st Contact Info) Description 09/18/2024 10:30 AM EST Office Visit Hematology/Oncology at [address] [phone] Erica Yi APRN [address] [place] [address] [place] [address] 09/18/2024 11:00 AM EST Infusion Hematology Oncology at [address] [phone] 10/01/2024 3:45 PM EST Office Visit Functional [facility] Program at [facility] [address] [place] [address] Gene Julien Jr., PT 12/23/2024 8:00 AM EST Appointment XRay at [address] [place] [address] River Ochoa MD [address] [place], [place] [address] 01/21/2025 1:00 PM EDT Office Visit Radiation Oncology at [address] [phone] Tory Salazar PA [facility] DR HEMATOLOGY [place] [address] documented as of this encounter Procedures Procedure Name Priority Date/Time Associated Diagnosis Comments Injection Dx/Ther Sbst Intrlmnr Lmbr/Sac W/Img Gdn (78352) 11/21/2022 10:15 AM EST Radiculopathy of lumbar region INJECTION, EPIDURAL, LUMBAR OR SACRAL (CAUDAL), WITH IMAGING GUIDANCE Routine 11/21/2022 9:12 AM EST Radiculopathy of lumbar region documented in this encounter Visit Diagnoses Diagnosis Radiculopathy of lumbar region- Primary Thoracic or lumbosacral neuritis or radiculitis, unspecified Radiculopathy of lumbar region Thoracic or lumbosacral neuritis or radiculitis, unspecified documented in this encounter Administered Medications Inactive Administered Medications - up to 3 most recent administrations Medication Order MAR Action Action Date Dose Rate Site dexAMETHasone (PF) (Decadron) (10 mg/mL) injection ONCE PRN, Starting on Sat11/21/22 at 1023, Until Sat11/21/22 at 1242, Intra-Operative (Intra-Procedure), Routine Given 11/21/2022 10:23 AM EST 15 mg iohexoL (Omnipaque) (240 mg/mL) solution ONCE PRN, Starting on Sat11/21/22 at 1023, Until Sat11/21/22 at 1242, Intra-Operative (Intra-Procedure), Routine Given 11/21/2022 10:23 AM EST 2 mLs documented in this encounter Active and Recently Administered Medications Times are shown in EST. PRN Medication Order 11/19/2022 11/20/2022 11/21/2022 dexAMETHasone (PF) (Decadron) (10 mg/mL) injection (CANCELED) ONCE PRN, Starting on Sat11/21/22 at 1023, Until Sat11/21/22 at 1242, Intra-Operative (Intra-Procedure), Routine 1023 (Given - Provid er: Noe Mosqueda DO - Comment: LESI) iohexoL (Omnipaque) (240 mg/mL) solution (CANCELED) ONCE PRN, Starting on Sat11/21/22 at 1023, Until Sat11/21/22 at 1242, Intra-Operative (Intra-Procedure), Routine 1023 (Given - Provid er: Noe Mosqueda DO - Comment: CHASITY) documented in this encounter Care Teams Spindle Tester Relationship Specialty Start Date End Date Kay Caldwell MD [address] [place] [address] [place] [address] PCP - General Family Medicine 08/15/22 documented as of this encounter
--- OUTSIDE RECORDS SUMMARY | 2024-09-18 01:21 | XMS_ITS | Encounter Summary ---
[place] [address] Care Team Providers Care Refuse Laborer Name Role Phone Kay Caldwell MD Primary Care Provider [phone] Encounter Details Date Type Department Care Team (Late st Contact Info) Description 09/05/2022 Telephone [facility] [place] [phone] Rahel Quezada Social History Tobacco Use Types Packs/Day Years Used Date Smoking Tobacco: Never Assessed Sex and Gender Information Value Date Recorded Sex Assigned at Not on file Gender Identity Not on file Sexual Orientation Not on file documented as of this encounter Miscellaneous Notes * Telephone Encounter - Rahel Pate - 09/05/2022 4:34 PM EDT Patient called in and left a message, returned call and left message on both numbers provided [phone] and [phone]. documented in this encounter Plan of Treatment Upcoming Encounters Date Type Department Care Team (Late st Contact Info) Description 09/18/2024 10:30 AM EST Office Visit Hematology/Oncology at [address] [phone] Erica Yi APRN [address] [place] [address] [place] [address] 09/18/2024 11:00 AM EST Infusion Hematology Oncology at [address] [phone] 10/01/2024 3:45 PM EST Office Visit Functional [facility] Program at [facility] [address] [place] [address] Gene Julien Jr., PT 12/23/2024 8:00 AM EST Appointment XRay at [address] [place] [address] River Ochoa MD [address] [place] [address] 01/21/2025 1:00 PM EDT Office Visit Radiation Oncology at [address] [phone] Tory Salazar PA [facility] DR HEMATOLOGY [place] [address] documented as of this encounter Visit Diagnoses Not on filedocumented in this encounter Care Teams Refuse Laborer Relationship Specialty Start Date End Date Kay Caldwell MD [address] [place] [address] [address] [place], [place] [address] PCP - General Family Medicine 08/15/22 documented as of this encounter
--- OUTSIDE RECORDS SUMMARY | 2024-09-18 01:21 | XMS_ITS | Encounter Summary ---
Author Organization [facility] [place] [address] Care Team Providers Care Slip Tender Name Role Phone Kay Caldwell MD Primary Care Provider [phone] Reason for Visit * Auth/Cert Specialty Diagnoses [...] ADDITIONAL LEVEL (WRVU 1) Cosmo Blanco MD [facility] [place] [address] [facility] Referral ID Status Reason Start Date Expiration Date Visits Re quested Visits Authorized [id number] 1 1 Encounter Details Date Type Department Care Team (Latest Contact Info) Description 10/09/2022 7:06 AM EST - 10/09/2022 9:16 AM [facility] Hospital Encounter [place] [phone] Cosmo Blanco MD [facility] [place] [address] Lumbar foraminal stenosis Discharge Disposition: Home Social History Tobacco Use Types Packs/Day Years Used Date Smoking Tobacco: Former Smokeless Tobacco: Never Sex and Gender Information Value Date Recorded Sex Assigned at Not on file Gender Identity Not on file Sexual Orientation Not on file documented as of this encounter Last Filed Vital Signs Vital Sign Reading Time Taken Comments Blood Pressure 126/61 10/09/2022 8:25 AM EST Pulse 65 10/09/2022 8:25 AM EST Temperature - - Respiratory Rate - - Oxygen Saturation 99% 10/09/2022 9:10 AM EST Inhaled Oxygen Concentration - - Weight 89.4 kg (197 lb) 10/09/2022 8:25 AM EST Height 160 cm (5' 3) 10/09/2022 8:25 AM EST Body Mass Index 34.9 10/09/2022 8:25 AM EST documented in this encounter Medications at Time of Discharge Medication Sig Dispensed Refills Start Date End Date nystatin (MYCOSTATIN) 100,000 unit/gram Powder Prn 06/27/2022 multivitamin (THERAGRAN) Tablet Take 1 tablet by mouth daily. HERBAL DRUGS ORAL Take by mouth. [place] Wort, lemon balm, passiflora, leonorus, hypericum ACETAMINOPHEN [...] (VITAMIN D ORAL) Take by mouth. 04/15 QUEtiapine (SEROquel) 25 mg Tablet 07/07/2022 10/23/2022 documented as of this encounter H&P Notes * Kaushik Ayala MD - 10/08/2022 12:10 PM EST Patient Name: Josselyn Garduno Patient Age: 77 y.o. Birthdate: 1945 Admit date: 10/09/2022 Attending Physician: Cosmo Blanco MD PREPROCEDURE HISTORY AND PHYSICAL Date of Visit: October 09, 2022 Chief Complaint: Right sided flank pain HPI: Subjective Josselyn Garduno is a 77 y.o. female who presents today for a preoperative evaluation for Right L2/3and L3/4 TFESI. 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 After a discussion with the patient, the decsion was made to proceed with a RIGHT CLUNEAL NERVE BLOCK instead of the original plan of L2/3 and L3/4 TFESI The history is obtained from the patient, and I have reviewed medical records provided by the referring physician and located in the electronic medical record to fill in gaps in the patient's recollection of events, treatments and outcomes. LOCATION: R back and flank. PAIN LEVEL AT REST 2/10 PAST MEDICAL HISTORY: No past medical history on file. PAST SURGICAL HISTORY: No past surgical history on file. ALLERGIES: Opioids - morphine analogues MEDICATIONS: Medications 10/09/22 0825 Medication Sig Taking? multivitamin (THERAGRAN) Tablet Take 1 tablet by mouth daily. Yes ergocalciferol, vitamin D2, (VITAMIN D ORAL) Take by mouth. Yes HERBAL DRUGS ORAL Take by mouth. [place] Wort and other ingredients (pt unsure) Yes lisinopriL (Zestril) 10 mg Tablet Yes omeprazole (PriLOSEC) 20 mg Capsule, Delayed Release(E.C.) Yes simvastatin (Zocor) 20 mg Tablet Yes ACETAMINOPHEN ORAL Take by mouth. QUEtiapine (SEROquel) 25 mg Tablet FAMILY HISTORY: No family history on file. [...] ED visits or antibiotics use PHYSICAL EXAM: BP 126/61 (Patient Position: Sitting) Pulse 65 Ht 160 cm (5' 3) Wt 89.4 kg (197 lb) SpO2 100% BMI 34.90 kg/m?? CV: RRR Pulm: CTA B Skin: No concerning infection, erythema or warmth near the procedure site SIgnficant TTP along the right iliac crest ASSESSMENT: Cluneal neuropathy Josselyn Garduno is a 77 y.o. female who presents today for the above procedure. Risks and benefits were discussed with the patient and all questions answered. There are no contraindications to proceed. PLAN: Proceed with procedure as planned. Kaushik Ayala MD 10/09/2022 documented in this encounter Miscellaneous Notes * Op Note - Cosmo Blanco MD - 10/09/2022 9:05 AM EST Pain Management Operative Note Patient Name: Josselyn Garduno : [id number] MR#: [id number] Case Date: 10/09/2022 Surgeon: Surgeon(s) and Role: * Cosmo Blanco MD - Primary * Kaushik Ayala MD - Fellow Present on Admission: ??? Radiculopathy of lumbar region ??? Cluneal neuropathy Postoperative diagnosis: same Fluoroscopically Guided right Superior Cluneal Nerve Block Patient has been referred to the Pain Management Center for a right Superior Cluneal Nerve Block. Patient was greeted by the nurse who verified patients name and . Patient was then taken to the fluoroscopy suite. Patient was interviewed and the medical record reviewed. There were no medical, pharmacologic, radiographic, or other structural contraindications to attempting an fluoroscopically guided right Superior Cluneal Nerve Block. Risks and expected side effects as well as potential benefits of the procedure were reviewed and voiced concerns addressed. The patient consent form was signed and witnessed. Standard time-out procedure was performed. Patient was placed in the prone position. The lower back was exposed, including the iliac crest . After skin preparation, the iliac crest was identified and dai were placed on the skin at 3 locations (between 4 cm and 8 cm lateral to midline) along the iliac crest over thetender area and known location of cluneal nerve branches. After local skin anesthetic with 1% Lidocaine a 25 G 3.5 inch spinal needles were inserted and advanced in conjunction with fluoro guidance to known position of nerve. Once needle contacted os at thetop portion of the illac crest, 0.25 ml of Omnipaque injected without abberant uptake through each needle. No vascular uptake was needed. After negative aspiration, a 5 ml mixture of 4mL of 0.5% ropivicaine and 1ml of 80mg/mL of Depomedrol was injected evenly at the three locations. The needles were then removed. Hemostasis was achieved. Follow up plans and appointments were discussed. Post procedure instruction was given as documentedin nursing records and having met discharge criteria he was discharged from the Pain Management Center. COMMENTS: The patient tolerated the procedure well and will follow up as needed. I was the attending physician supervising the fellow in the above care and I was present with the fellow for the entire procedure. Cosmo Blanco MD [facility] [employer] [facility] Anest[facility] [address] [phone] / [facility] documented in this encounter Plan of Treatment Upcoming Encounters Date Type Department Care Team (Late st Contact Info) Description 09/18/2024 10:30 AM EST Office Visit Hematology/Oncology at [address] [phone] Erica Yi APRN [address] [place] [address] [facility] [place] [address] 09/18/2024 11:00 AM EST Infusion Hematology Oncology at [address] [phone] 10/01/2024 3:45 PM EST Office Visit Functional Sikhism Program at [facility] [address] [place] [address] Gene Julien Jr., PT 12/23/2024 8:00 AM EST Appointment XRay at [address] [place] [address] River Ochoa MD [address] [place], [place] [address] 01/21/2025 1:00 PM EDT Office Visit Radiation Oncology at [address] [phone] Tory Salazar PA [facility] DR HEMATOLOGY AND ONCOLOGY [place] [address] documented as of this encounter Procedures Procedure Name Priority Date/Time Associated Diagnosis Comments Inj, Foramen, L/S, Addl Levels (98223) 10/09/2022 8:59 AM EST Lumbar foraminal stenosis Inj, Foramen, L/S, 1 Level (99901) 10/09/2022 8:59 AM EST Lumbar foraminal stenosis INJ, ANES AGENT/STEROID, TRANSFORAMINAL EPI, LUMBAR/SACRAL, EA ADDL LEVEL Routine 10/09/2022 8:18 AM EST Lumbar foraminal stenosis INJ, ANES AGENT/STEROID, TRANSFORAMINAL EPI, LUMBAR/SACRAL, SINGLE LEVEL Routine 10/09/2022 8:18 AM EST Lumbar foraminal stenosis documented in this encounter Visit Diagnoses Diagnosis Cluneal neuropathy- Primary Lumbar foraminal stenosis Spinal stenosis, lumbar region, without neurogenic claudication Radiculopathy of lumbar region Thoracic or lumbosacral neuritis or radiculitis, unspecified documented in this encounter Active and Recently Administered Medications Times are shown in EST. PRN Medication Order 10/07/2022 10/08/2022 10/09/2022 iohexoL (Omnipaque) (240 mg/mL) solution (CANCELED) ONCE PRN, Starting on Sat10/09/22 at 0906, Until Sat10/09/22 at 1116, Intra-Operative (Intra-Procedure), Routine 905 (Given - Provid er: Kaushik Ayala MD) methylPREDNISolone acetate (DEPO-Medrol) (80 mg/mL) injection (CANCELED) ONCE PRN, Starting on Sat10/09/22 at 0906, Until Sat10/09/22 at 1116, Intra-Operative (Intra-Procedure), Routine 905 (Given - Provid er: Kaushik Ayala MD) ROpivacaine (PF) (Naropin) 0.5% (5 mg/mL) injection (CANCELED) ONCE PRN, Starting on Sat10/09/22 at 0906, Until Sat10/09/22 at 1116, Intra-Operative (Intra-Procedure), Routine 905 (Given - Provid er: Kaushik Ayala MD) documented in this encounter Care Teams Slip Tender Relationship Specialty Start Date End Date Kay Caldwell MD [address] [place] [address] [place] [address] PCP - General Family Medicine 08/15/22 documented as of this encounter
--- OUTSIDE RECORDS SUMMARY | 2024-09-18 01:21 | XMS_ITS | Encounter Summary ---
[place] [address] Care Team Providers Care Safety Spec Name Role Phone Kay Caldwell MD Primary Care Provider [phone] Reason for Visit * Reason Onset Date Comments Pre Procedure Call 10/08/2022 Encounter Details Date Type Department Care Team (Late st Contact Info) Description 10/08/2022 Telephone [facility] [place] [phone] Nazanin Wilburn, RN Pre Procedure Call Social History Tobacco Use Types Packs/Day Years Used Date Smoking Tobacco: Former Smokeless Tobacco: Never Sex and Gender Information Value Date Recorded Sex Assigned at Not on file Gender Identity Not on file Sexual Orientation Not on file documented as of this encounter Miscellaneous Notes * Telephone Encounter - Nazanin Wilburn, RN - 10/08/2022 3:49 PM EST Contact made with patient or field marketing representative as identified in contacts 1. Patient instructed to arrive at 0830 on 10/09/22 with their medical van driver for their TFESI procedure. Please plan to spend about 2 hours at the center. (3 hours for RFA) 2. Has pt started any new medications or supplements in the past two weeks? No 3. Have any of the following occurred within the two weeks before the procedure date? a. Patient is having a Covid vaccine or other vaccine No b. Patient has been exposed to anybody with a contagious illness such as Covid, flu, No c. Patient is taking antibiotics to treat an infection No d. Patient has any skin rashes, breakdown, blisters or open wounds No e. Patient has had any hospitalizations, ED visits, surgery, other procedure, dental procedure No f. Patient has taken oral steroids or had a steroid injection No g. Does patient have any of the following symptoms that are NEW and NOT explained by another healthcondition: fever or chills, cough, shortness of breath or difficulty breathing, fatigue, muscle or body aches, headache, new loss of taste or smell, sore throat, congestion or runny nose, nausea or vo miting, diarrhea. No If yes, the patient has been directed to the [employer] hotline for testing prior to their procedure. (route telephone note to: [facility] covid 19 nurse triage with routing comment stating pt needs covid test prior to procedure and give date of procedure, add name and MRN to tracking tool). h. Has the patient's pain resolved or significantly improved such as a rating of 3/10 or less? No 4. Was patient instructed to stop any medications? No if yes: a. Name of medication(s): b. Confirm date of last dose: 5. Is patient having a nerve block: No a. If yes instructed to not take any pain medication for 12 hours before your procedure. 6. Patient instructed to take any prescribed medications that they were not told to stop, especially blood pressure medication, because their procedure may be cancelled if their blood pressure is toohigh. 7. Was patient instructed to follow NPO guidelines: Yes if yes, the following instructions were reviewed: a. You may eat up to 6 hours before your procedure b. You may have clear liquids only up to 2 hours before your procedure: water, apple juice, sherrie kymberly, sprite, popsicles, broth, tea or coffee plain or with sweetener, absolutely no dairy products, no milk including soy, oat, almond. 8. IF RFA: Does patient have a pacemaker? No a. If yes, document that cardiology was called and notified. 9. Additional notes if applicable: Patient expressed understanding and agreement with instructions Yes Patient denies further questions Yes documented in this encounter Plan of Treatment Upcoming Encounters Date Type Department Care Team (Late st Contact Info) Description 09/18/2024 10:30 AM EST Office Visit Hematology/Oncology at [address] [phone] Erica Yi APRN [address] [place] [address] DR MEDICAL ONCOLOGY [place], [place] [phone] 09/18/2024 11:00 AM EST Infusion Hematology Oncology at [address] [phone] 10/01/2024 3:45 PM EST Office Visit Functional Orthodoxy Program at [place] [address] [place] [address] Gene Julien Jr., PT 12/23/2024 8:00 AM EST Appointment XRay at [address] [place] [address] River Ochoa MD [address] [place], [place] [address] 01/21/2025 1:00 PM EDT Office Visit Radiation Oncology at [address] [phone] Tory Salazar PA [facility] DR HEMATOLOGY [place] [address] documented as of this encounter Visit Diagnoses Not on filedocumented in this encounter Care Teams Safety Spec Relationship Specialty Start Date End Date Kay Caldwell MD [address] [place] [address] [address] [place] [address] PCP - General Family Medicine 08/15/22 documented as of this encounter
--- OUTSIDE RECORDS SUMMARY | 2024-09-18 01:21 | XMS_ITS | Encounter Summary ---
Author Organization [facility] Address [address] [place] [address] Care Team Providers Care Product Inspection Supervisor Name Role Phone Tiffany Baron MD Primary Care Provider Reason for Visit * Reason Onset Date Comments Appointment Related 12/07/2014 Encounter Details Date Type Department Care Team (Late st Contact Info) Description 12/07/2014 Telephone [facility] Ophthalmology - [facility] [address], [place] [phone] Octavio Oswald MD [address] [place] [address], [address] [place] [address] Appointment Related Social History Tobacco Use Types Packs/Day Years [...] Miscellaneous Notes * Telephone Encounter - Rahel Carlson - 12/07/2014 0834 EST Patient is aware of her scheduled MRI on 12/23/14 and follow up on 12/27/14 for MRI f/u documented in this encounter Plan of Treatment Not on file documented as of this encounter Visit Diagnoses Not on filedocumented in this encounter Care Teams Product Inspection Supervisor Relationship Specialty Start Date End Date Tiffany Baron MD [address] [address] PCP - General 01/12/14 02/19/16 documented as of this encounter
--- OUTSIDE RECORDS SUMMARY | 2024-09-18 01:21 | XMS_ITS | Encounter Summary ---
Author Organization [facility] Address [address] [place] [address] Care Team Providers Care Concrete Analyst Name Role Phone Dina Garcia MD Primary Care Provider [phone] Encounter Details Date Type Department Care Team (Latest Contact Info) Description 12/11/2019 Travel Social History Tobacco Use Types Packs/Day [...] on filedocumented in this encounter Care Teams Concrete Analyst Relationship Specialty Start Date End Date Dina Garcia MD [address] [address] PCP - General 02/20/16 documented as of this encounter
--- OUTSIDE RECORDS SUMMARY | 2024-09-18 01:21 | XMS_ITS | Encounter Summary ---
Author Organization [place] [address] Care Team Providers Care Traditional Chinese Herbalist Name Role Phone Kay Caldwell MD Primary Care Provider [phone] Reason for Visit * Auth/Cert (Routine) Specialty Diagnoses / Procedures Referred By Contac t Referred To Contact Diagnoses Lumbar Radiculopathy Procedures PRO INJECTION DX/THER SBST INTRLMNR LMBR/SAC W/IMG GDN INJECTION, EPIDURAL, LUMBAR OR SACRAL (CAUDAL), WITH IMAGING GUIDANCE (WRVU 1.8) Jose Tai MD [facility] [place] [address] [facility] Referral ID Status Reason Start Date Expiration Date Visits Re quested Visits Authorized [id number] 1 1 Encounter Details Date Type Department Care Team (Latest Contact Info) Description 11/21/2022 8:54 AM EST - 11/21/2022 10:42 AM EST Hospital [place] [address] Jose Tai MD [facility] [place] [address] Radiculopathy of lumbar region Discharge Disposition: Home Social History Tobacco [...] - Respiratory Rate - - Oxygen Saturation 95% 11/21/2022 10:35 AM EST Inhaled Oxygen Concentration - - Weight - - Height - - Body Mass Index - - documented in this encounter Medications at Time of Discharge Medication Sig Dispensed Refills Start Date End Date nystatin (MYCOSTATIN) 100,000 unit/gram Powder Prn 06/27/2022 multivitamin (THERAGRAN) Tablet Take 1 tablet by mouth daily. HERBAL DRUGS ORAL Take by mouth. [place] Wort, lemon balm, passiflora, leonorus, hypericum ACETAMINOPHEN [...] groin and thigh. PAIN LEVEL AT REST /10 PAST MEDICAL HISTORY: No past medical history on file. PAST SURGICAL HISTORY: Past Surgical History: Procedure Laterality Date ??? PRO INJ, FORAMEN, L/S, 1 LEVEL Right 10/09/2022 INJECTION, ANESTHETIC AGENT AND/OR STEROID, TRANSFORAMINAL EPIDURAL, LUMBAR OR SACRAL, SINGLE LEVEL(WRVU 1.9) performed by Cosmo Blanco MD at [facility] ??? PRO INJ, FORAMEN, L/S, 1 LEVEL Right 11/09/2022 INJECTION, ANESTHETIC AGENT AND/OR STEROID, TRANSFORAMINAL EPIDURAL, LUMBAR OR SACRAL, SINGLE LEVEL(WRVU 1.9) performed by Jose Tai MD at [facility] ??? PRO INJ, FORAMEN, L/S, ADDL LEVELS Right 10/09/2022 INJECTION, ANESTHETIC AGENT AND/OR STEROID, TRANSFORAMINAL EPIDURAL, LUMBAR OR SACRAL, EACH ADDITIONAL LEVEL (WRVU 1) performed by Cosmo Blanco MD at [facility] ALLERGIES: Opioids - morphine analogues MEDICATIONS: No current facility-administered medications on file prior to encounter. Current Outpatient Medications on File Prior to Encounter Medication Sig Dispense Refill ??? multivitamin (THERAGRAN) Tablet Take 1 tablet by mouth daily. ??? ergocalciferol, vitamin D2, (VITAMIN D ORAL) Take by mouth. ??? HERBAL DRUGS ORAL Take by mouth. [place] Wort and other ingredients (pt unsure) ??? [...] proceed. Noe Mosqueda DO Pain Medicine Fellow [facility] Office: Pager: [phone] I have seen and examined the patient and reviewed the fellow's above history and agree with the details as written. The assessment and plan were formulated in discussion with me, and I agree with them as documented. Jose Tai MD, MS Iv Technician of Anesthesiology [facility] [employer] [facility] [address] [address] / [facility] documented in this encounter Miscellaneous Notes * Op Note - Jose Tai MD - 11/21/2022 10:23 AM EST Pain Management Operative Note Patient Name: Josselyn Garduno : [id number] MR#: [id number] Case Date: 11/21/2022 Surgeon: Surgeon(s) and Role: [...] AM EST Office Visit Hematology/Oncology at [address] [phone] Erica Yi APRN [address] [place] [address] DR MEDICAL ONCOLOGY [place], [place] [address] 09/18/2024 11:00 AM EST Infusion Hematology Oncology at [address] [phone] 10/01/2024 3:45 PM EST Office Visit Functional Rastafarian Program at [facility] [address] [place] [address] Gene Julien Jr., PT 12/23/2024 8:00 AM EST Appointment XRay at [address] [place] [address] River Ochoa MD [address] [place], [place] [address] 01/21/2025 1:00 PM EDT Office Visit Radiation Oncology at [address] [phone] Tory Salazar PA [facility] HEMATOLOGY [place] [address] documented as of this encounter Procedures Procedure Name Priority Date/Time Associated Diagnosis Comments Injection Dx/Ther Sbst Intrlmnr Lmbr/Sac W/Img Gdn (71429) 11/21/2022 10:15 AM EST Radiculopathy of lumbar [...] Routine 1023 (Given - Provid er: Noe Mosqueda, - Comment: VARUNI) iohexoL (Omnipaque) (240 mg/mL) solution (CANCELED) ONCE PRN, Starting on Sat11/21/22 at 1023, Until Sat11/21/22 at 1242, Intra-Operative (Intra-Procedure), Routine 1023 (Given - Provid er: Noe Mosqueda, - Comment: CHASITY) documented in this encounter Care Teams Traditional Chinese Herbalist Relationship Specialty Start Date End Date Kay Caldwell MD [address] [place] [address] [address] [place], [place] [address] PCP - General Family Medicine 08/15/22 documented as of this encounter
--- OUTSIDE RECORDS SUMMARY | 2024-09-18 01:21 | XMS_ITS | Encounter Summary ---
Author Organization [facility] Address [address] [place] [address] Care Team Providers Care Global Compensation Director Name Role Phone Dina Garcia MD Primary Care Provider [phone] Encounter Details Date Type Department Care Team (Late st Contact Info) Description 03/01/2022 Lab Requisition [facility] Pathology & Laboratory Medicine - [facility] [address] [place] [address] Dmitri Schultz MD [address] [place] [address] [phone] Encounter for other general examination Social History [...] Date/Time Associated Diagnosis Comments SURGICAL PATHOLOGY Today 03/01/2022 9:18 EDT documented in this encounter Results * SURGICAL PATHOLOGY (03/01/2022 9:18 EDT) Note to Patient The following pathology results have been interpreted by your pathologist and may be available to you before your health provider has had the opportunity to review them. Please allow time for your provider to receive these results and explore management options, if applicable. 03/02/2022 16:28 T [facility] Final Diagnosis A. COLON, RIGHT, TATTOO SITE, BIOPSY: - Colonic mucosa with no significant diagnostic abnormalities. - No definite polyp identified. - Negative for dysplasia and malignancy. 03/02/2022 16:28 T [facility] Attestation By the signature below, the attending physician certifies that they have 1) personally conducted a gross and/or microscopic examination of the described specimen(s), and/or personally interpreted the results of laboratory testing of the described specimen(s), and 2) personally rendered or confirmed the above diagnosis. 03/02/2022 16:28 [facility] at 1628 Clinical History History of right-sided sessile serrated adenoma; diverticulosis 03/02/2022 16:28 EDT [facility] Gross Description A. Received in formalin labelled with proper patient identification (initials B, A) and tattoo site is a single brown-thacker tissue (0.3 x 0.2 x 0.2 cm). Submitted intact in A1. KIM PLATT(ASCP) 03/02/2022 10:28 03/02/2022 16:28 EDT [facility] Performing Lab [facility] 03/02/2022 16:28 T [facility] Scanned Images 03/02/2022 16:28 T [facility] Tissue ENTIRE COLON / Unknown 03/01/2022 9:18 EDT 03/02/2022 8:57 EDT Dmitri Schultz MD PATHOLOGY [place] MATA [facility] [address] [place] [address] documented in this encounter Visit Diagnoses Diagnosis Encounter for other general examination documented in this encounter Care Teams Global Compensation Director Relationship Specialty Start Date [place] [address] PCP - General 02/20/16 documented as of this encounter
--- OUTSIDE RECORDS SUMMARY | 2024-09-18 01:21 | XMS_ITS | Encounter Summary ---
Author Organization [facility] Address [address] [place] [address] Care Team Providers Care Jacquard Fixer Name Role Phone Dina Garcia MD Primary Care Provider [phone] Reason for Visit * Reason Onset Date Comments Medication Adherence 05/04/2016 Encounter Details Date Type Department Care Team (Late st Contact Info) Description 05/04/2016 Telephone [facility] Pelvic Medicine and Reconstructive Surgery - Medical Office [facility] [address] [place] [address] Zohra Sutton RN Medication Adherence [...] encounter Miscellaneous Notes * Telephone Encounter - Zohra Sutton RN - 05/04/2016 1559 EDT The patient indicates understanding of these issues and agrees with the plan. * Telephone Encounter - Zohra Sutton RN - 05/04/2016 1552 EDT ----- Message from Soo Sams MD sent at 05/04/2016 15:43 EDT ----- Regarding: problem with tigre Skinner, I spoke with this pt about her results. Tigre interfers with 2 of her meds. SO instead I orderedTerazol 7. Will you please call and notify her of this change today? thx a lot, Soo documented in this encounter Plan of Treatment Not on file documented as of this encounter Visit Diagnoses Not on filedocumented in this encounter Care Teams Jacquard Fixer Relationship Specialty Start Date [place] [address] PCP - General 02/20/16 documented as of this encounter
--- OUTSIDE RECORDS SUMMARY | 2024-09-18 01:21 | XMS_ITS | Encounter Summary ---
Author Organization [facility] Address [address] [place] [address] Care Team Providers Care Professional Application Designer Name Role Phone Dina Garcia MD Primary Care Provider [phone] Reason for Visit * Reason Onset Date Comments Vaginal Issues 05/15/2016 Encounter Details Date Type Department Care Team (Late st Contact Info) Description 05/15/2016 Telephone [facility] Pelvic Medicine and Reconstructive Surgery - Medical Office [address] [address] Soo Sams MD [address] [place] [address] Medical Office [facility], [address] [address] Vaginal Issues Social History Tobacco Use Types Packs/Day Years [...] Dispensed Refills Start Date End Da te triamcinolone (KENALOG) 0.1 % ointment Apply thin layer to affected area 2x a day for 3 weeks 30 g 0 05/15/2016 06/02/2018 triamcinolone (KENALOG) 0.1 % ointment Apply thin layer to affected area 2x a day 30 g 0 05/15/2016 05/15/2016 documented in this encounter Miscellaneous Notes * Telephone Encounter - Dasha Goldstein, ALEXANDER - 05/15/2016 1445 EDT Pt advised of Dr Sams's instructions. She wanted presc sent to [facility]. Presc for Triamcinolone re-escribed * Telephone Encounter - Soo Sams MD - 05/15/2016 1322 EDT Yes she should take the Terazol with the antibiotic. Next I would like her to start Triamcinolone ointment to the back side of the vaginal opening, where she gets the pain an irritation 2x a day for 3 weeks to start. Just a thin layer. If problem persists after that then, I would like to see her again. Best to avoid intercourse for those 3 weeks. Shecan use at the same time as the terazol if she wants or wait til done with it. thx * Telephone Encounter - Dasha Goldstein RN - 05/15/2016 1117 EDT Terazol course completed. Continues to have the same pain with intercourse which persists for a fewdays post intercourse documented in this encounter Plan of Treatment Not on file documented as of this encounter Visit Diagnoses Not on filedocumented in this encounter Discontinued Medications Medication Sig Discontinue Reason Start Date End Da te triamcinolone (KENALOG) 0.1 % ointment Apply thin layer to affected area 2x a day Reorder 05/15/2016 05/15/2016 documented as of this encounter Care Teams Professional Application Designer Relationship Specialty Start Date End Date Dina Garcia MD [address] [address] PCP - General 02/20/16 documented as of this encounter
--- OUTSIDE RECORDS SUMMARY | 2024-09-18 01:21 | XMS_ITS | Encounter Summary ---
Author Organization [facility] Address [address] [place] [address] Care Team Providers Care Information Assurance Analyst Name Role Phone Tiffany Baron MD Primary Care Provider [phone] Dina Garcia MD Primary Care Provider [phone] Encounter Details Date Type Department Care Team (Late st Contact Info) Description 01/12/2016 Historical Results Only [facility] - [facility] [place] [address] [place] [address] Sharath Brennan DO [address] [facility], [address] [place] [address] Social History Tobacco Use Types Packs/Day Years [...] Procedure Name Priority Date/Time Associated Diagnosis Comments PAP TEST Routine 01/12/2016 10:35 EST documented in this encounter Results * PAP TEST (01/12/2016 10:35 EST) 01/12/2016 10:3 5 EST 01/13/2016 10:[address] [facility] - 01/23/2016 16:02 EDT ----- ------- Name: JOSSELYN GARDUNO ?: 45 ?Age/Sex: 74/F ?Unit#: [id number] ? Loc: LAB.OPX ? Status: REG REF ?? Reg Date: 01/12/16 ? Pt.Phone Number: ? ----- ------- Specimen: [id number] ? STATUS: SOUT ?Spec Date:01/12/16 ? Physician Copies: ?Sharath Brennan DO Tissues: ? VAGINAL PAP ? CPT: 68145 ?? Units: ??1 ----- ------- ? CYTOLOGY DIAGNOSIS SPECIMEN ADEQUACY: ??Satisfactory for evaluation. Assessment of transformation zone not applicable (e.g. ??atrophy, vaginal sample, hysterectomy). GENERAL CATEGORIZATION: ?Negative for Intraepithelial Lesion or Malignancy DESCRIPTIVE DIAGNOSIS: ? Negative for Intraepithelial Lesion or Malignancy. ----- ------- ?HPV DNA RESULTS ?? 01/12/16 1529 HPV DNA RESULT ??Not Done ? Unable to recover sufficient DNA for HPV testing. Signed Molly Cuellar CT([place]) 01/18/16 By the signature above, the attending physician certifies that he/she has personally conducted a gross and/or microscopic examination of the described specimens and rendered or confirmed the above diagnosis. Test Performed by [facility], [address] [place] [address] Compression Molding Machine Tender: Kathy Rice MD PHD ----- ------- Sharath Cullom DO PATHOLOGY ORDERABLES Performing Organization Address City/State/[facility] Co de Phone Number [facility] documented in this encounter Visit Diagnoses Not on filedocumented in this encounter Care Teams Information Assurance Analyst Relationship Specialty Start Date End Date Tiffany Baron MD [address] [id number] PCP - General 01/12/14 02/19/16 Dina Garcia MD [address] [address] PCP - General 02/20/16 documented as of this encounter
--- OUTSIDE RECORDS SUMMARY | 2024-09-18 01:21 | XMS_ITS | Encounter Summary ---
Author Organization [facility] [place] [address] Care Team Providers Care Paramedic Name Role Phone Kay Caldwell MD Primary Care Provider [phone] Reason for Visit * Auth/Cert Specialty Diagnoses [...] LEVEL (WRVU 1) Cosmo Blanco MD [facility] [place] [address] [facility] Referral ID Status Reason Start Date Expiration Date Visits Re quested Visits Authorized [id number] 1 1 Encounter Details Date Type Department Care Team (Late st Contact Info) Description 10/09/2022 9:00 AM EST - 10/09/2022 9:45 AM EST [place] [phone] Cosmo Blanco MD [facility] [place] [address] INJECTION, ANESTHETIC AGENT AND/OR STEROID, TRANSFORAMINAL EPIDURAL, LUMBAR OR SACRAL, SINGLE LEVEL (WRVU 1.9) Social History Tobacco Use Types Packs/Day Years [...] daily. HERBAL DRUGS ORAL Take by mouth. [place] Wort, lemon balm, passiflora, leonorus, hypericum ACETAMINOPHEN [...] Yes HERBAL DRUGS ORAL Take by mouth. [place] Wort and other ingredients (pt unsure) Yes [...] Operative Note Patient Name: Josselyn Garduno : [id number] MR#: [id number] Case Date: 10/09/2022 Surgeon: Surgeon(s) and Role: [...] procedure. Cosmo Blanco MD [facility] [employer] Project Manager of Anesthesiology [facility] [address] [address] / [facility] documented in this encounter Plan of Treatment Upcoming Encounters Date Type Department Care Team (Late st Contact Info) Description 09/18/2024 10:30 AM EST Office Visit Hematology/Oncology at [address] [phone] Erica Yi APRN [address] [place] [address] [place] [address] 09/18/2024 11:00 AM EST Infusion Hematology Oncology at [address] [phone] 10/01/2024 3:45 PM EST Office Visit Functional Hindu Program at [facility] [address] [place] [address] Gene Julien , PT 12/23/2024 8:00 AM EST Appointment XRay at [address] [place] [address] River Ochoa MD [address] [place] [address] 01/21/2025 1:00 PM EDT Office Visit Radiation Oncology at [address] [phone] Tory Salazar PA [facility] HEMATOLOGY AND ONCOLOGY [place] [address] documented as of this encounter Procedures Procedure Name Priority Date/Time Associated Diagnosis Comments Inj, Foramen, L/S, Addl Levels (48438) 10/09/2022 8:59 AM EST Lumbar foraminal stenosis Inj, Foramen, L/S, 1 Level (38325) 10/09/2022 8:59 AM EST Lumbar foraminal stenosis [...] Action Date Dose Rate Site iohexoL (Omnipaque) (240 mg/mL) solution ONCE PRN, Starting on Sat10/09/22 at 0906, Until Sat10/09/22 at 1116, Intra-Operative (Intra-Procedure), Routine Given 10/09/2022 9:06 AM EST 1 mL methylPREDNISolone acetate (DEPO-Medrol) (80 mg/mL) injection ONCE PRN, Starting on Sat10/09/22 at 0906, Until Sat10/09/22 at 1116, Intra-Operative (Intra-Procedure), Routine Given 10/09/2022 9:06 AM EST 80 mg ROpivacaine (PF) (Naropin) 0.5% (5 mg/mL) injection ONCE PRN, Starting on Sat10/09/22 at 0906, Until Sat10/09/22 at 111, Intra-Operative (Intra-Procedure), Routine Given 10/09/2022 9:06 AM EST 4 mLs documented in this encounter Active and [...] on Sat10/09/22 at 0906, Until Sat10/09/22 at 111, Intra-Operative (Intra-Procedure), Routine 905 (Given - Provid er: Kaushik Ayala MD) ROpivacaine (PF) (Naropin) 0.5% (5 mg/mL) injection (CANCELED) ONCE PRN, Starting on Sat10/09/22 at 0906, Until Sat10/09/22 at 1116, Intra-Operative (Intra-Procedure), Routine 905 (Given - Provid er: Kaushik Ayala MD) documented in this encounter Care Teams Paramedic Relationship Specialty Start Date End Date Kay Caldwell MD [address] [place] [address] [place] [address] PCP - General Family Medicine 08/15/22 documented as of this encounter
--- OUTSIDE RECORDS SUMMARY | 2024-09-18 01:21 | XMS_ITS | Encounter Summary ---
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 Toe spacers, silicone toe shield dispensed today and patient has been instructed on appropriate use. documented in this encounter Progress Notes * Asuncion Burleson - 01/13/2020 1330 EST Chief Complaint Patient presents with ??? Left Foot - Follow-up There were no encounter diagnoses. LEVI Garduno is a 74 y.o. female who presents to clinic today for follow-up regarding open woundto the left 5th toe. She was seen for this wound initially on 12/30/2019. She has been treating withbetadine and lambswool as previously advised and feels that the wound has improved significantly. She reports some continued discomfort from rubbing of the 4th and 5th toes, left foot. She has trialed toe spacers, shoewear adjustments, etc in the past without long-term relief. She did have good response with symptoms relieved for about 1 year, per her account, after debridement last year. No further pedal concerns reported today. Past Medical History: Diagnosis Date ??? Anemia ??? Anxiety ??? Arthritis ??? Depression ??? Hearing loss ??? High cholesterol ??? History of substance abuse ([facility]) ??? Hypertension ??? Joint pain ??? Sinus problem ??? UTI (urinary tract infection) ??? Wears glasses Past Surgical History: Procedure Laterality Date ??? APPENDECTOMY ??? HYSTERECTOMY ??? INCONTINENCE SURGERY 02/21/[address] Horan ??? JOINT REPLACEMENT Bilateral Knee ??? TONSILLECTOMY AND ADENOIDECTOMY Social History Tobacco Use ??? Smoking status: Former Smoker Last attempt to quit: 12/03/1984 Years since quittin.1 ??? Smokeless tobacco: Never Used Substance Use Topics ??? Alcohol use: No Alcohol/week: 0.0 standard drinks Comment: 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 Family History Problem Relation Age of Onset ??? Cataract Mother ??? Retinal Detachment Mother ??? Lymphoma Mother ??? Heart Disease Father ??? High Blood Pressure Father ??? Breast Cancer Other aunt Current Outpatient Medications Medication Sig Dispense Refill ??? cholecalciferol, Vitamin D3, 1,000 unit tablet Take 1,000 Units by mouth daily. ??? clobetasol (TEMOVATE) 0.05 % ointment Apply topically as needed. ??? conjugated estrogens 0.625mg/G (PREMARIN) vaginal cream Place 0.5 g vaginally daily x1 month 1 Tube 5 ??? cyanocobalamin (VITAMIN B-12) 1,000 mcg tablet Take 1,000 mcg by mouth daily. ??? lisinopril (PRINIVIL, ZESTRIL) 10 mg tablet Take 10 mg by mouth daily. ??? MULTIVITAMIN ORAL Take by mouth 2 times daily . ??? [place]-3 Fatty Acids-Vitamin E (FISH OIL) 1,000 mg capsule Take by mouth 2 times daily. ??? omeprazole (PRILOSEC) 20 mg capsule ??? PEG 3350-Electrolytes (MIRALAX) 17 gram packet Take 17 g by mouth as needed. ??? POTASSIUM ORAL Take by mouth daily. ??? QUEtiapine (SEROQUEL) 25 mg tablet Take 25 mg by mouth at bedtime. ??? simvastatin (ZOCOR) 20 mg tablet Take 20 mg by mouth at bedtime. ??? triamcinolone (KENALOG) 0.1 % ointment Apply thi layer to the vulvar prn itching 30 g 0 ??? venlafaxine (EFFEXOR XR) 37.5 mg XR capsule Take 37.5 mg by mouth daily. No current facility-administered medications for this visit. Allergies Allergen Reactions ??? Morphine Nausea And Vomiting Vitals: Pulse 67 SpO2 94% ROS: Constitutional??negative for, fever, malaise, chills.?? Eyes??Negative for, recent change in vision.?? Ears,nose,mouth,throat??Positive for, hearing loss right ear.?? Cardiovascular??negative for, chest pain, palpitations.?? Respiratory??negative for, cough, wheezing.?? Gastrointestinal??negative for, nausea, vomiting, positive for, heartburn.?? Physical Exam General Exam: General appearance: No acute distress, pleasant, cooperative. Afebrile. HEENT: Conjunctiva clear, anicteric sclerae. Lungs: Respiration unlabored. Neurologic: Alert & oriented, normal cognition. Psychiatric: Appropriate affect. Podiatry Exam: Vascular?? +1/4 DP/PT pulses, bilaterally. No erythema, streaking, or calor present. No edema associated with B/L LE. Diminished pedal hair. ??Dermatological?? Skin is cool, dry, and supple, bilaterally. Wound to medial aspect of the left 5th toe resolved in full, as is tissue maceration to L 4th interspace. Mild residual corn, heloma molle, to medial 5th toe, base. .? Neurological??Protective sensation is intact to light touch, b/l.? Orthopedic??+5/5 muscle strength present to all LE muscle groups. Adductovarus rotation of b/l 4th, 5th digits.? Assessment: ICD-10-CM ICD-9-CM 1. 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 Pain in left toe(s) M79.675 729.5 3. Open wound of fifth toe of left foot, subsequent encounter S91.105D V58.89 893.0 Plan: Clinical findings and pathology discussed with patient in length today. Wound healed in full. Reviewed conservative and surgical treatment measures with the patient today. She will continue conservative management with use of appropriately fitting shoewear and toe spacers. I have given patient samples of toe spacers and a silicone toe shield today. Patient will follow-up on prn basis. Speech recognition software was used to complete this progress note. Typographical errors may be present. 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
--- OUTSIDE RECORDS SUMMARY | 2024-09-18 01:21 | XMS_ITS | Encounter Summary ---
Author Organization [facility] [place] [address] Care Team Providers Care Christmas Tree Farm Worker Name Role Phone Kay Caldwell MD Primary Care Provider [phone] Encounter Details Date Type Department Care Team (Late st Contact Info) Description 11/09/2022 Orders [place] [address] Jose Tai MD [facility] [place] [address] Radiculopathy of lumbar region (Primary Dx) Social History Tobacco Use Types [...] AM EST Office Visit Hematology/Oncology at [address] [phone] Erica Yi APRN [address] [place] [address] DR MEDICAL ONCOLOGY [place], [place] [address] 09/18/2024 11:00 AM EST Infusion Hematology Oncology at [address] [phone] 10/01/2024 3:45 PM EST Office Visit Functional [facility] at [facility] [address] [place] [address] Gene Julien Jr., PT 12/23/2024 8:00 AM EST Appointment XRay at [address] [place] [address] River Ochoa MD [address] [place] [address] 01/21/2025 1:00 PM EDT Office Visit Radiation Oncology at [address] [phone] Tory Salazar PA [facility] DR HEMATOLOGY [place] [address] documented as of this encounter Visit Diagnoses Diagnosis Radiculopathy of lumbar region- Primary Thoracic or lumbosacral neuritis or radiculitis, unspecified documented in this encounter Care Teams Christmas Tree Farm Worker Relationship Specialty Start Date End Date Kay Caldwell MD [address] [place] [address] [address] [place], [place] [address] PCP - General Family Medicine 08/15/22 documented as of this encounter
--- OUTSIDE RECORDS SUMMARY | 2024-09-18 01:21 | XMS_ITS | Encounter Summary ---
Author Organization [facility] Address [address] [place] [address] Care Team Providers Care Slot Floor Attendant Name Role Phone Dina Garcia MD Primary Care Provider [phone] Reason for Visit * Reason Onset Date Comments Biopsy Results 06/06/2018 Encounter Details Date Type Department Care Team (Late st Contact Info) Description 06/06/2018 Telephone [facility] Pelvic Medicine and Reconstructive Surgery - Medical Office [facility] [address] [place] [address] Kathleen Goldstein RN Biopsy Results Social History Tobacco Use Types Packs/Day Years [...] Telephone Encounter - Dasha Goldstein, ALEXANDER - 06/06/2018 1442 EDT Pt calling for results of her biopsy done on Saturday. TC to pt. She has already heard from Dr Sams documented in this encounter Plan of Treatment Not on file documented as of this encounter Visit Diagnoses Not on filedocumented in this encounter Care Teams Slot Floor Attendant Relationship Specialty Start Date End Date Dina Garcia MD [address] [address] PCP - General 02/20/16 documented as of this encounter
--- OUTSIDE RECORDS SUMMARY | 2024-09-18 01:21 | XMS_ITS | Encounter Summary ---
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 Procedures PRO INJ, FORAMEN, L/S, 1 LEVEL INJECTION, ANESTHETIC AGENT AND/OR STEROID, TRANSFORAMINAL EPIDURAL, LUMBAR OR SACRAL, SINGLE LEVEL (WRVU 1.9) Jose Tai MD [facility] [place] [address] [facility] Referral ID Status Reason Start Date Expiration Date Visits Re quested Visits Authorized [id number] 1 1 Encounter Details Date Type Department Care Team (Late st Contact Info) Description 11/09/2022 3:30 PM EST - 11/09/2022 4:00 PM EST [place] [address] Jose Tai MD [facility] [place] [address] INJECTION, ANESTHETIC AGENT AND/OR STEROID, TRANSFORAMINAL EPIDURAL, [...] Sign Reading Time Taken Comments Blood Pressure 143/67 11/09/2022 3:10 PM EST Pulse 67 11/09/2022 3:10 PM EST Temperature - - Respiratory Rate - - Oxygen Saturation 100% 11/09/2022 3:10 PM EST Inhaled Oxygen Concentration - - Weight 89.8 kg (198 lb) 11/09/2022 3:10 PM EST Height 160 cm (5' 3) 11/09/2022 3:10 PM EST Body Mass Index 35.07 11/09/2022 3:10 PM EST documented in this encounter Medications at Time of Discharge Medication Sig Dispensed Refills Start Date End Date nystatin (MYCOSTATIN) 100,000 unit/gram Powder Prn 06/27/2022 multivitamin (THERAGRAN) Tablet Take 1 tablet by mouth daily. HERBAL DRUGS ORAL Take by mouth. [place] Wort, lemon balm, passiflora, leonorus, hypericum ACETAMINOPHEN [...] H&P Notes * Jose Tai MD - 11/09/2022 10:51 AM EST Patient Name: Josselyn Garduno Patient Age: 77 y.o. Birthdate: 1945 Admit date: (Not on file) Attending Physician: Jose Tai MD PREPROCEDURE HISTORY AND PHYSICAL Date of Visit: November 09, 2022 Chief Complaint: Low back pain HPI: Subjective Josselyn Garduno is a 77 y.o. female who presents today for Procedure: Transforaminal Epidural Steroid injection Laterality: Right Levels: L2-3 . The history is obtained from the patient, and I have reviewed medical records provided by the referring physician and located in the electronic medical record to fill in gaps in the patient's recollection of events, treatments and outcomes. LOCATION: Low back pain PAIN LEVEL AT REST 10 PAST MEDICAL HISTORY: No past medical history on file. PAST SURGICAL HISTORY: Past Surgical History: Procedure Laterality Date ??? PRO INJ, FORAMEN, L/S, 1 LEVEL Right 10/09/2022 INJECTION, ANESTHETIC AGENT AND/OR STEROID, TRANSFORAMINAL EPIDURAL, LUMBAR OR SACRAL, SINGLE LEVEL(WRVU 1.9) performed by Cosmo Blanco MD at [facility] PAIN [facility] ??? PRO INJ, FORAMEN, L/S, ADDL LEVELS Right 10/09/2022 INJECTION, ANESTHETIC AGENT AND/OR STEROID, TRANSFORAMINAL EPIDURAL, LUMBAR OR SACRAL, EACH ADDITIONAL LEVEL (WRVU 1) performed by Cosmo Blanco MD at [facility] FAMILY HISTORY: No family history on file. [...] on file Housing Stability: Not on file ALLERGIES: Opioids - morphine analogues MEDICATIONS: Medications 10/23/22 1034 Medication Sig Taking? multivitamin (THERAGRAN) Tablet Take 1 tablet by mouth daily. ergocalciferol, vitamin D2, (VITAMIN D ORAL) Take by mouth. HERBAL DRUGS ORAL Take by mouth. Wexford Wort and other ingredients (pt unsure) ACETAMINOPHEN ORAL Take by mouth. lisinopriL (Zestril) 10 mg Tablet omeprazole (PriLOSEC) 20 mg Capsule, Delayed Release(E.C.) simvastatin (Zocor) 20 mg Tablet ROS: Pt denies recent fever, chills, infection, wounds, hospitalizations, ED visits, use of antibiotics.Otherwise, as described above. PHYSICAL EXAM: There were no vitals taken for this visit. General: patient well developed and is non-distressed Head: normocephalic and atraumatic CV: normal rate, normal rhythm Pulmonary: effort and breath sounds normal, no wheezing Skin: non-diaphoretic and no rashes noted MSK: Low back pain Physical Exam RADIOLOGIC DATA: Reviewed prior to procedure LABS/DX RESULTS: Labs reviewed and no new labs pertinent to today's procedure. ASSESSMENT: Lumbar Radiculopathy PLAN: Proceed with procedure as planned. Dustin Torres MD MPH PGY5 Pain Management Fellow [address] / [facility] I have seen and examined the patient and reviewed the fellow's above history and agree with the details as written. Discussed possibility of interlaminar epidural steroid injection at L2-3 or other level if unable to access epidural space by way of the right transforaminal approach at L2-3. The assessment and plan were formulated in discussion with me, and I agree with them as documented. Jose Tai MD, MS Self Defense Instructor of Anesthesiology [facility] [address] [phone] / [facility].org documented in this encounter Miscellaneous Notes * Op Note - Jose Tai MD - 11/09/2022 4:57 PM EST Pain Management Operative Note Patient Name: Josselyn Garduno : [id number] MR#: [id number] Case Date: 11/09/2022 Surgeon: Surgeon(s) and Role: * Jose Tai MD - Primary * Dustin Torres MD - Fellow Present on Admission: ??? Radiculopathy of lumbar region Postoperative diagnosis: Same Procedure(s) (LRB): INJECTION, ANESTHETIC AGENT AND/OR STEROID, TRANSFORAMINAL EPIDURAL, LUMBAR OR SACRAL, SINGLE LEVEL(WRVU 1.9) (Right) PROCEDURE NOTE Transforaminal Epidural Steroid Injection with Fluoroscopic Guidance at right L2-L3 Chief Complaint: right leg pain. Josselyn Garduno has been referred to the [facility] for Lumbar Transforaminal Epidural Steroid Injection right L2-L3 COMMENTS: Referring provider: Dr. Schultz Allergies: Allergies Allergen Reactions ??? Opioids - Morphine Analogues Nausea And Vomiting Projectile vomiting Pre-procedure VAS: 6/10 to the right leg. Her pain starts in the back and radiates anteriorly toward the right flank and abdomen. Follow up plan: Telephone visit in 1-2 weeks. Josselyn Garduno was greeted by the nurse who verified patients name and . Patient was then taken to the fluoroscopy suite. Ms. Garduno was interviewed and the medical record reviewed. There were no medical, pharmacologic,radiographic or other structural contraindications to attempting fluoroscopically guided transforaminal lumbar epidural steroid injection. The risks, benefits, and potential side effects were reviewed with the patient. Risk include, but not limited to, post dural puncture, headache, infection, nerve injury, allergic reaction, possible increase in symptoms over the ensuing 24 to 48 hours, and paralysis. The patient appeared to understand, questions were answered and the patient agreed to proceed. Once I obtained informed verbal consent, the printed consent form was signed by the patient and myself. Standard time-out procedure was performed. TECHNIQUE: After informed written consent was obtained the patient was placed in the prone position. The lumbar spine spine was prepped with chloraprep and draped. Sterile technique was observed during the entire procedure ( cap, gloves, and mask were worn). Vitals signs were monitored throughout the procedure. The right side was marked with a radioopaque marker. The skin and subcutaneous structures were anesthetized with lidocaine 1% to a total volume of 3 ML at each level. Under fluoroscopic guidance, in ipsilateral oblique view, co-axial approach, A 22g spinal needle was advanced to the base of the L-2. pedicle. The needle was advanced to the superio-posterior aspect of the neural foramen under lateral view. Oblique and AP views were rechecked. Under AP view Omnipaque 240 0.5 cc's was injected while visualized with fluoroscopy, initially revealing spread superiorly to the nerve and along the muscle. There was no evidence of intravascular uptake. The needle was repositioned and advanced more medially under the pedicle and entering the lateral epidural space under the pedicle. 1.5ml of Omnipaque 240 was injected, revealing spread superiomedially above the pedicle. Digital subtraction revealed possible intravascular spread in the epidural space. The decision was made to not inject steroid or local anesthetic given the possibility of intravascular uptake andto approach by way of an interlaminar access on a subsequent day given the presence of right L2-3 fo raminal stenosis and possible vascular structures at that level. The needle was removed and she proceeded to the post-procedure area where we discussed scheduling the interlaminar epidural steroid injection given the possible vascular flow of the radioopaque contrast. All questions were answered atthis time. Outcome: The patient tolerated the procedure well and had stable vital signs. Follow up plans and appointments were discussed with Ms. Garduno. The patient was observed in the pain clinic and then discharged after having met discharge criteria to the care of a team cdl driver. The patient received written instructions as documented in nursing records. Disposition: Ms. Garduno was discharged from the procedure suite without new neurological complaints. I personally performed the entire procedure with Dustin Torres MD, MPH. Jose Tai MD CC: Dmitri Schultz MD [address] [place] [phone] documented in this encounter Plan of Treatment Upcoming Encounters Date Type Department Care Team (Late st Contact Info) Description 09/18/2024 10:30 AM EST Office Visit Hematology/Oncology at [address] [phone] Erica Yi APRN [address] [place] [address] MEDICAL ONCOLOGY [place], [place] [address] 09/18/2024 11:00 AM EST Infusion Hematology Oncology at [address] [phone] 10/01/2024 3:45 PM EST Office Visit Functional [facility] Program at [facility] [address] [place] [address] Gene Julien Jr., PT 12/23/2024 8:00 AM EST Appointment XRay at [address] [place] [address] River Ochoa MD [address] [place], [place] [address] 01/21/2025 1:00 PM EDT Office Visit Radiation Oncology at [address] [phone] Tory Salazar V., PA [facility] DR HEMATOLOGY [place] [address] documented as of this encounter Procedures Procedure Name Priority Date/Time Associated Diagnosis Comments Inj, Foramen, L/S, 1 Level (77909) 11/09/2022 4:44 PM EST Lumbar foraminal stenosis INJ, ANES AGENT/STEROID, TRANSFORAMINAL EPI, LUMBAR/SACRAL, SINGLE LEVEL Routine 11/09/2022 3:05 PM EST Lumbar foraminal stenosis documented in [...] (240 mg/mL) solution ONCE PRN, Starting on Sat11/09/22 at 1658, Until Sat11/09/22 at 1959, Intra-Operative (Intra-Procedure), Routine Given 11/09/2022 4:58 PM EST 5 mLs lidocaine (pf) (Xylocaine) (10 mg/mL) 1% injection ONCE PRN, Starting on Sat11/09/22 at 1659, Until Sat11/09/22 at 1958, Intra-Operative (Intra-Procedure), Routine Given 11/09/2022 4:59 PM EST 2 mLs documented in this encounter Active and Recently Administered Medications Times are shown in EST. PRN Medication Order 11/07/2022 11/08/2022 11/09/2022 iohexoL (Omnipaque) (240 mg/mL) solution (CANCELED) ONCE PRN, Starting on Sat11/09/22 at 1658, Until Sat11/09/22 at 1958, Intra-Operative (Intra-Procedure), Routine 1657 (Given - Provid er: Dustin Torres MD - Comment: right lumbar TFESI) lidocaine (pf) (Xylocaine) (10 mg/mL) 1% injection (CANCELED) ONCE PRN, Starting on Sat11/09/22 at 1659, Until Sat11/09/22 at 1958, Intra-Operative (Intra-Procedure), Routine 1658 (Given - Provid er: Dustin Torres MD - Comment: right lumbar TFESI) documented in this encounter Care Teams Operator Engineer Relationship Specialty Start Date End Date Kay Caldwell MD [address] [place] [address] [address] [place], [place] [address] PCP - General Family Medicine 08/15/22 documented as of this encounter
--- OUTSIDE RECORDS SUMMARY | 2024-09-18 01:21 | XMS_ITS | Encounter Summary ---
Author Organization [facility] [place] [address] Care Team Providers Care Lower School Spanish Teacher Name Role Phone Kay Caldwell MD Primary Care Provider [phone] Encounter Details Date Type Department Care Team (Latest Contact Info) Description 10/23/2022 10:15 AM EST TH Visit (TeleHealth) [place] [address] Jazmín Santiago APRN [facility] [place] [address] Lumbar foraminal stenosis (Primary Dx) Social History Tobacco Use Types Packs/Day Years Used Date Smoking Tobacco: Former Smokeless Tobacco: Never Sex and Gender Information Value Date Recorded Sex Assigned at Not on file Gender Identity Not on file Sexual Orientation Not on file documented as of this encounter Progress Notes * Jazmín Santiago APRN - 10/23/2022 10:15 AM EST [facility] TELE-HEALTH FOLLOW UP Date of Consultation: October 22, 2022 Referring Provider: Dmitri Schultz Reason for [...] [place] and during [place]. She had a cluneal nerve injection done by . Dr. Balnco on 10/09/2022. I had ordered a transforaminal [...] injection did not help her at all. PAIN ASSESSMENT: Description: Right flank painn to abdomen, dull ache Other associated symptoms:not associated Left posterior tingling to ankle Alleviating factors: staying still Aggravating factors:movement Lateral bending , forward bending, twisting Pain today:7-8 Best in past week:3-4/10 Worst in past week: 8/10 No flowsheet data found. 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 Allergies & Adverse Reactions: Opioids - [...] 1.9) performed by Cosmo Blanco MD at [facility] PAIN [facility] ??? PRO INJ, FORAMEN, L/S, ADDL LEVELS Right 10/09/2022 INJECTION, ANESTHETIC AGENT AND/OR STEROID, TRANSFORAMINAL EPIDURAL, LUMBAR OR SACRAL, EACH ADDITIONAL LEVEL (WRVU 1) performed by Cosmo Blanco MD at [facility] PAIN [facility] [place] Review of Systems: Denies fever, chills, weight [...] strength, sensation, reflexes in the lower extremities. Imaging & Other Studies: Images of the lumbar spine were reviewed with her and a copy of the report was photocopied and willbe placed in her chart. In short, there is multilevel degenerative changes with foraminal stenosis on the right at L2-3 which is consistent with her symptoms. Assessment: Ms. Garduno is a 77 y.o. year-old female who [facility] accompanied by her . She reports having had right-sided flank pain for over ayear. Symptoms seem to be related transforaminal impingement at L2 between L2-3. We discussed a shaw sforaminal injection follow-up with me via telehealth. She will continue with her physical therapy.If her symptoms are not improved she will convert the telehealth visit to an in person visit so I can reexamine her. All questions were answered today. Thank you Dr. Schultz for allowing my participation in Josselyn Garduno's care. Jazmín Santiago, MS, DERMATOLOGY NURSE PRACTITIONER-BC, RELIEF MANAGER Nurse practitioner Pain management [facility] documented in this encounter Plan of Treatment Upcoming Encounters Date Type Department Care Team (Late st Contact Info) Description 09/18/2024 10:30 AM EST Office Visit Hematology/Oncology at [address] [phone] [address] Yi APR[address] MEDICAL ONCOLOGY [place], [place] [address] 09/18/2024 11:00 AM EST Infusion Hematology Oncology at [address] [phone] 10/01/2024 3:45 PM EST Office Visit Functional [facility] at [place] [address] [place] [address] Gene Julien Jr., PT 12/23/2024 8:00 AM EST Appointment XRay at [address] [place] [phone] River Ochoa MD [address] [place], [place] [address] 01/21/2025 1:00 PM EDT Office Visit Radiation Oncology at [address] [phone] Tory Salazar PA [facility] DR HEMATOLOGY [place] [address] documented as of this encounter Visit Diagnoses Diagnosis Lumbar foraminal stenosis- Primary Spinal stenosis, lumbar region, without neurogenic claudication documented in this encounter Care Teams Lower School Spanish Teacher Relationship Specialty Start Date End Date Kay Caldwell MD [address] [place] [address] [address] [place], [place] [address] PCP - General Family Medicine 08/15/22 documented as of this encounter
--- OUTSIDE RECORDS SUMMARY | 2024-09-18 01:21 | XMS_ITS | Encounter Summary ---
Author Organization [facility] Address [address] [place] [address] Care Team Providers Care Supervisor Delivery Department Name Role Phone Dina Garcia MD Primary Care Provider [phone] Encounter Details Date Type Department Care Team (Late st Contact Info) Description 10/25/2021 Lab Requisition [facility] Pathology & Laboratory Medicine - [facility] [address] [place] [address] Dmitri Schultz MD [address] [place] [phone] Encounter for other general examination Social History [...] Date/Time Associated Diagnosis Comments SURGICAL PATHOLOGY Today 10/25/2021 11 :18 EST documented in this encounter Results * SURGICAL PATHOLOGY (10/25/2021 11:18 EST) Note to Patient The following pathology results have been interpreted by your pathologist and may be available to you before your health provider has had the opportunity to review them. Please allow time for your provider to receive these results and explore management options, if applicable. 10/31/2021 11:05 [facility] Final Diagnosis A. SIGMOID COLON, SIGMOID COLECTOMY: - Segment of colon with diverticula and intramural foreign body giant cell reaction. - Two lymph nodes negative for malignancy (0/2). 10/31/2021 11:05 [facility] Attestation There was significant resident/fellow involvement in the diagnostic evaluation of this case. By the signature below, the attending physician certifies that they have personally conducted a gross and/or microscopic examination of the described specimens and rendered or confirmed the above diagnosis. 10/31/2021 11:05 [facility] at 1105 Clinical History Diverticulitis 10/31/2021 11:05 [facility] Gross Description A. Received in formalin labelled with proper patient identification (initials B, A) and sigmoid colon is an unoriented segment of sigmoid colon (14.2 cm in length x 3.6 cm in luminal circumference), that is received previously opened, stapled at one end. There is a moderate amount of attached hyperemic mesentery. Multiple diverticula are present extending through the colon wall into the surrounding mesenteric adipose tissue. One of the diverticula contains soft brown fecal material. No perforations or fistula tracts are identified. The wall in the region of the diverticula is thickened, ranging from 0.3 cm to 1.0 cm. The mucosa is pink-dc with the usual folds. The serosa is dc-brown unremarkable. Two possible lymph nodes are identified 0.3 cm in greatest dimension. Land Appraiser sections are submitted as follows: BLOCK GOLDEN A1-A2- margin at open end A3-A4- margin at stapled end A5-A7- major account representative diverticula A8- 2 lymph nodes KIM PLATT([facility]) 10/26/2021 13:36 10/31/2021 11:05 [facility] Resident/Jose w: Faustino Jalloh MD 10/31/2021 11:05 [facility] Performing Lab [facility] 10/31/2021 11:05 EST [facility] Scanned Images 10/31/2021 11:05 EST [facility] Tissue ENTIRE SIGMOID COLON / Unknown 10/25/2021 11:18 EST 10/25/2021 21:53 EST Dmitri Schultz MD PATHOLOGY [place] Performing Organization Address City/State/[facility] Co de Phone Number [facility] [address] [place] [address] documented in this encounter Visit Diagnoses Diagnosis Encounter for other general examination documented in this encounter Care Teams Supervisor Delivery Department Relationship Specialty Start Date End Date Dina Garcia MD [address] [address] PCP - General 02/20/16 documented as of this encounter
--- OUTSIDE RECORDS SUMMARY | 2024-09-18 01:21 | XMS_ITS | Encounter Summary ---
Author Organization [facility] [place] [address] Care Team Providers Care Lime Plant Operator Name Role Phone Kay Caldwell MD Primary Care Provider [phone] Reason for Visit * Auth/Cert (Routine) Specialty Diagnoses / Procedures Referred By Contac t Referred To Contact Diagnoses L2-3 stenosis with right lower abdominal and back pain Procedures PRO INJ, FORAMEN, L/S, 1 LEVEL INJECTION, ANESTHETIC AGENT AND/OR STEROID, TRANSFORAMINAL EPIDURAL, LUMBAR OR SACRAL, SINGLE LEVEL (WRVU 1.9) Jose Tai MD [facility] [place] [address] [facility] Referral ID Status Reason Start Date Expiration Date Visits Re quested Visits Authorized [id number] 1 1 Encounter Details Date Type Department Care Team (Latest Contact Info) Description 11/09/2022 2:09 PM EST - 11/09/2022 5:59 PM [facility] Hospital [place] [address] Jose Tai MD [facility] [place] [address] Lumbar foraminal stenosis Discharge Disposition: Home Social History Tobacco Use Types Packs/Day Years Used Date Smoking Tobacco: Former Smokeless Tobacco: Never Sex and Gender Information Value Date Recorded Sex Assigned at Not on file Gender Identity Not on file Sexual Orientation Not on file documented as of this encounter Last Filed Vital Signs Vital Sign Reading Time Taken Comments Blood Pressure 182/82 11/09/2022 5:20 PM EST Pulse 67 11/09/2022 3:10 PM EST Temperature - - Respiratory Rate - - Oxygen Saturation 100% 11/09/2022 5:20 PM EST Inhaled Oxygen Concentration - - [...] daily. HERBAL DRUGS ORAL Take by mouth. [place] Wort, lemon balm, passiflora, leonorus, hypericum [...] Low back pain PAIN LEVEL AT REST 06/20 PAST MEDICAL HISTORY: No past medical history on file. PAST SURGICAL HISTORY: Past Surgical History: Procedure Laterality Date ??? PRO INJ, FORAMEN, L/S, 1 LEVEL Right 10/09/2022 INJECTION, ANESTHETIC AGENT AND/OR STEROID, TRANSFORAMINAL EPIDURAL, LUMBAR OR SACRAL, SINGLE LEVEL(WRVU 1.9) performed by Cosmo Blanco MD at [facility] ??? PRO INJ, FORAMEN, L/S, ADDL LEVELS Right 10/09/2022 INJECTION, ANESTHETIC AGENT AND/OR STEROID, TRANSFORAMINAL EPIDURAL, LUMBAR OR SACRAL, EACH ADDITIONAL LEVEL (WRVU 1) performed by Cosmo Blanco MD at [facility] FAMILY HISTORY: No family history on file. [...] mouth. HERBAL DRUGS ORAL Take by mouth. [place] Wort and other ingredients (pt unsure) ACETAMINOPHEN [...] Torres MD MPH PGY5 Pain Management Fellow [place] [address] / [facility] I have seen and examined the patient [...] them as documented. Jose Tai MD, MS Hogshead Mat Assembler of Anesthesiology [facility] [place] [phone] / [facility].org documented in this encounter Miscellaneous Notes * Op Note - Jose Tai MD - 11/09/2022 4:57 PM EST Pain Management Operative Note Patient Name: Josselyn Garduno : [id number] MR#: [id number] Case Date: 11/09/2022 Surgeon: Surgeon(s) and Role: [...] discharge criteria to the care of a wood pile driver operator. The patient received written instructions as documented in nursing records. Disposition: Ms. Garduno was discharged from the procedure suite without new neurological complaints. I personally performed the entire procedure with Dustin Torres MD, MPH. Jose Tai MD CC: Dmitri Schultz MD [address] [place] [phone] documented in this encounter Plan of Treatment Upcoming Encounters Date Type Department Care Team (Late st Contact Info) Description 09/18/2024 10:30 AM EST Office Visit Hematology/Oncology at [address] [phone] Erica Yi APRN [address] [place] [address] [place] [address] 09/18/2024 11:00 AM EST Infusion Hematology Oncology at [address] [phone] 10/01/2024 3:45 PM EST Office Visit Functional Gnosticist Program at [facility] [address] [place] [address] Gene Julien Jr., PT 12/23/2024 8:00 AM EST Appointment XRay at [address] [place] [address] River Ocoha MD [address] [place], [place] [address] 01/21/2025 1:00 PM EDT Office Visit Radiation Oncology at [address] [phone] Tory Salazar PA [facility] DR [place] [address] documented as of this encounter Procedures Procedure Name Priority Date/Time Associated Diagnosis Comments Inj, Foramen, L/S, 1 Level ([id number]) 11/09/2022 4:44 PM EST Lumbar foraminal stenosis [...] Until Sat11/09/22 at 1959, Intra-Operative (Intra-Procedure), Routine 1658 (Given - Provid er: Dustin Torres MD - Comment: right lumbar TFESI) lidocaine (pf) (Xylocaine) (10 mg/mL) 1% injection (CANCELED) ONCE PRN, Starting on Sat11/09/22 at 1659, Until Sat11/09/22 at 1959, Intra-Operative (Intra-Procedure), Routine 165 (Given - Provid er: Dustin Torres MD - Comment: right lumbar TFESI) documented in this encounter Care Teams Lime Plant Operator Relationship Specialty Start Date End Date Kay Caldwell MD [address] [place] [address] [place] [address] PCP - General Family Medicine 08/15/22 documented as of this encounter
--- OUTSIDE RECORDS SUMMARY | 2024-09-18 01:21 | XMS_ITS | Encounter Summary ---
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 documented in this encounter Progress Notes * Asuncion Burleson - 12/11/2019 0815 EST Chief Complaint Patient presents with ??? Left Foot - Pain There were no encounter diagnoses. LEVI Garduno is a 74 y.o. female who has pain to the interspace of the left 4th and 5th toe. Shewas last treated for this back in January 2019 at our clinic with debridement of associated lesion. She states this resolved symptoms in full up until approximately 1 month ago when she started having symptom recurrence. She denies any redness or drainage associated. Reports thickened tissue to the inside of the 5th toe. No additional pedal concerns reported today. There is no problem list on file for this patient. Past Medical History: Diagnosis Date ??? Anemia ??? Anxiety ??? Arthritis ??? Depression ??? Hearing loss ??? High cholesterol ??? History of substance abuse ??? Hypertension ??? Joint pain ??? Sinus problem ??? UTI (urinary tract infection) ??? Wears glasses Past Surgical History: Procedure Laterality Date ??? APPENDECTOMY ??? HYSTERECTOMY ??? INCONTINENCE SURGERY 02/21/[address] Horan ??? JOINT REPLACEMENT Bilateral Knee ??? TONSILLECTOMY AND ADENOIDECTOMY Social History Tobacco Use ??? Smoking status: Former Smoker Last attempt to quit: 12/03/1984 Years since quittin.0 ??? Smokeless tobacco: Never Used Substance Use Topics ??? Alcohol use: No Alcohol/week: 0.0 standard drinks Comment: 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 Family History Problem Relation Age of Onset ??? Cataract Mother ??? Retinal Detachment Mother ??? Lymphoma Mother ??? Heart Disease Father ??? High Blood Pressure Father ??? Breast Cancer Other aunt Current Outpatient Medications Medication Sig Dispense Refill ??? aspirin chewable 81 mg tablet Take 81 mg by mouth daily. ??? cholecalciferol, Vitamin D3, 1,000 unit tablet [...] by mouth 2 times daily . ??? [place]-3 Fatty Acids-Vitamin E (FISH OIL) 1,000 mg capsule Take by mouth 2 times daily. ??? OMEPRAZOLE ORAL Take 40 mg by mouth daily. ??? PEG 3350-Electrolytes (MIRALAX) 17 gram packet Take 17 g by mouth as needed. ??? POTASSIUM ORAL Take by mouth daily. ??? QUEtiapine (SEROQUEL) 25 mg tablet Take 25 mg by mouth at bedtime. ??? simvastatin (ZOCOR) 20 mg tablet Take 20 mg by mouth at bedtime. ??? triamcinolone (KENALOG) 0.1 % ointment Apply thi layer to the vulvar prn itching (Patient not taking: Reported on 12/11/2019) 30 g 0 ??? venlafaxine (EFFEXOR XR) 37.5 mg XR capsule Take 37.5 mg by mouth daily. No current facility-administered medications for this visit. Allergies Allergen Reactions ??? Morphine Nausea And Vomiting Vitals: Pulse 67 SpO2 99% ROS: Constitutional??negative for, fever, malaise, chills.?? Eyes??Negative for, recent change in vision.?? Ears,nose,mouth,throat??Positive for, hearing loss right ear.?? Cardiovascular??negative for, chest pain, palpitations.?? Respiratory??negative for, cough, wheezing.?? Gastrointestinal??negative for, nausea, vomiting, positive for, heartburn.?? Musculoskeletal??positive for pain associated with R 4th, 5th toes.? Physical Exam General Exam: General appearance: No acute distress, pleasant, cooperative. Afebrile. HEENT: Conjunctiva clear, anicteric sclerae. Lungs: Respiration unlabored. Neurologic: Alert & oriented, normal cognition. Psychiatric: Appropriate affect. Podiatry Exam: Vascular?? +1/4 DP/PT pulses, bilaterally. No erythema, streaking, or calor present. No edema associated with B/L LE. Diminished pedal hair. ??Dermatological?? Skin is cool, dry, and supple, bilaterally. Noted ingrowing callus (porokeratosis) to the medial aspect of left 5th toe at level of proximal interspace. Lesion is centrally nucleated and tender to palpation. There are no signs of acute infection present. No calor, erythema to bilateral LE. No abrasi ons, wounds, or further cutaneous discrepancies present, B/L .? Neurological??Protective sensation is intact to light touch, b/l.? Orthopedic??+5/5 muscle strength present to all LE muscle groups. Adductovarus rotation of b/l 5th digits.? Assessment: ICD-10-CM ICD-9-CM 1. 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 Pain in left toe(s) M79.675 729.5 3. Porokeratosis Q82.8 757.39 Plan: Clinical findings and pathology discussed with pt in length today. I have advised pt that a heloma durum is a buildup of skin or hyperkeratotic tissue, that typically presents in interspaces with there is rubbing of digital bony prominent areas. Conservative and surgical treatment options were discussed. Pt wishes to avoid surgery at this time. Following verbal consent, a sterile #15 blade was used to selectively debride interdigital corn (R 5th toe) down to healthy epidermal tissue. This was performed without incident. No underlying pathology encountered. Maintance of corn through use of toespacers and use of appropriate shoe types- ie shoe is appropriately wide to accomodate forefoot width and toe box is heigh enough to prevent irritation. Pt reports good understanding of treatment recommendations. She will try these recommendations and f/u in setting of continued pain.? Speech recognition software was used to complete this progress note. Typographical errors may be present. 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
--- OUTSIDE RECORDS SUMMARY | 2024-09-18 01:21 | XMS_ITS | Clinical Summary ---
Author Organization [facility] Address [address] [place] [address] Care Team Providers Care Salesperson Household Appliances Name Role Phone Dina Garcia MD Primary Care Provider [phone] Allergies Active Allergy Reactions Criticality Noted Date [...] Take 1,000 mcg by mouth daily. Active [place]-3 Fatty Acids-Vitamin E (FISH OIL) 1,000 mg [...] omeprazole (PRILOSEC) 20 mg capsule 10/30/2019 Active Surgical History Surgery Date Site/Laterality Comments TONSILLECTOMY AND ADENOIDECTOMY HYSTERECTOMY JOINT REPLACEMENT Bilateral Knee APPENDECTOMY INCONTINENCE SURGERY 02/21/[address] Horan Medical History Medical History Date Comments Wears glasses Hearing loss Sinus problem UTI (urinary tract infection) Arthritis Joint pain Hypertension High cholesterol Anemia Anxiety Depression History of substance abuse (HCC-CMS) Family History Medical History Relation Comments Heart Disease Father High Blood Pressure Father Cataract Mother Lymphoma Mother Retinal Detachment Mother Breast Cancer Other aunt Relation Status Comments Father Mother Other Social History Tobacco Use Types Packs/Day [...] on file Sexual Orientation Not on file Obstetrics History Para Term AB IAB SAB Ectopic Multiple Livin g Live Births 1 1 Date Outcome GA Total Labor Labor/2nd/3rd Weight Sex Type Anes PTL Chanelle A1 A5 Name Clin Para Last Filed Vital Signs Vital Sign Reading [...] 37.39 04/30/2016 0936 EDT Plan of Treatment Health Maintenance Due Date Last Done Comments Hepatitis C Screen 1945 RSV Immunization ( o r 60+ Years) (1 - 1-dose 60+ series) 2005 Fall Risk Screening 2010 COVID-19 Vaccine ( season) 2024 Care Teams Salesperson Household Appliances Relationship Specialty Start Date End Date Dina Garcia MD [address] [address] PCP - General 02/20/16
--- OUTSIDE RECORDS SUMMARY | 2024-09-18 01:21 | XMS_ITS | Encounter Summary ---
[place] [address] Care Team Providers Care Foundry Technician Name Role Phone Kay Caldwell MD Primary Care Provider [phone] Encounter Details Date Type Department Care Team (Late st Contact Info) Description 10/12/2022 Telephone [facility] [place] [phone] Anika Gillis RN Social History Tobacco Use Types Packs/Day Years Used Date Smoking Tobacco: Former Smokeless Tobacco: Never Sex and Gender Information Value Date Recorded Sex Assigned at Not on file Gender Identity Not on file Sexual Orientation Not on file documented as of this encounter Miscellaneous Notes * Telephone Encounter - Anika Gillis RN - 10/12/2022 9:08 AM EST Outgoing call to Josselyn in response to message sent from scheduling team stating that the patient called to report that she had no pain relief following her procedure with Dr. Blanco. Upon review, patient had a TFESI with Dr. Blanco on 10/09. Josselyn states Dr. Blanco wanted her to keep track of her pain scores for 4 hours following the procedure. Josselyn stated she did not have any relief in the 4 hours and has not had any relief as of yet. She stated she thought that if she did not have any relief in the first 4 hours that would be the steroid injection would not be successful. I informed Josselyn that it does take 2-10 days for the steroid to kick in and that the steroid should be at is full effect by 14 days and if she has not had relief by then, we would consider the procedure unsuccessful. I didrelay to Josselyn that she is scheduled for a follow up with Jazmín Santiago APRN on 10/23 and her response to the procedure will be discussed at that visit. Josselyn voiced understanding and appreciationfor the return call. documented in this encounter Plan of Treatment Upcoming Encounters Date Type Department Care Team (Late st Contact Info) Description 09/18/2024 10:30 AM EST Office Visit Hematology/Oncology at [address] [phone] Erica Yi APRN [address] [place] [address] DR MEDICAL ONCOLOGY [place], [place] [phone] 09/18/2024 11:00 AM EST Infusion Hematology Oncology at [address] [phone] 10/01/2024 3:45 PM EST Office Visit Functional Orthodox Program at [address] [address] Gene Julien Jr., PT 12/23/2024 8:00 AM EST Appointment XRay at [address] [place] [phone] River Ochoa MD [address] [place] [address] 01/21/2025 1:00 PM EDT Office Visit Radiation Oncology at [address] [phone] Tory Salazar PA [facility] HEMATOLOGY [place] [address] documented as of this encounter Visit Diagnoses Not on filedocumented in this encounter Care Teams Foundry Technician Relationship Specialty Start Date End Date Kay Caldwell MD [address] [place] [address] [address] [place] [address] PCP - General Family Medicine 08/15/22 documented as of this encounter
--- OUTSIDE RECORDS SUMMARY | 2024-09-18 01:21 | XMS_ITS | Encounter Summary ---
Author Organization [facility] Address [address] [place] [address] Care Team Providers Care Kiln Head House Operator Name Role Phone Tiffany Baron MD Primary Care Provider [phone] Reason for Visit * Reason Onset Date Comments Results 12/23/2014 Encounter Details Date Type Department Care Team (Late st Contact Info) Description 12/23/2014 Telephone [facility] Ophthalmology - Main [place] [address] [place], [place] [phone] Octavio Oswald MD [address] [place] [address] [address] [place] [phone] Results Social History Tobacco Use Types Packs/Day [...] * Telephone Encounter - Rahel Carlson - 12/27/2014 1331 EST Thank you. * Telephone Encounter - Octavio Oswald MD - 12/27/2014 1330 EST Spoke to pt about MRI result * Telephone Encounter - Rahel Carlson - 12/27/2014 1123 EST Josselyn called about the results of her MRI. She left a phone number of [phone] to call her. * Telephone Encounter - Rahel Carlson - 12/24/2014 0938 EST No problem. I put the results sheet on your desk this morning. * Telephone Encounter - Octavio Oswald MD - 12/24/2014 0912 EST Thanks * Telephone Encounter - Rahel Carlson - 12/23/2014 1636 EST Thank you. She says it will be best to call her on the cell phone number which is [phone]. I will cancel her Saturday appointment. * Telephone Encounter - Octavio Oswald MD - 12/23/2014 1621 EST That is fine * Telephone Encounter - Rahel Carlson - 12/23/2014 1544 EST Josselyn called and is having her MRI this evening (12/23/14) at 8:00PM. She was supposed to come see you for the MRI Follow up on Saturday but wants to know if you could call her with results instead. She travels a long ways and doesn't want to come if it's not needed. documented in this encounter Plan of Treatment Not on file documented as of this encounter Visit Diagnoses Not on filedocumented in this encounter Care Teams Kiln Head House Operator Relationship Specialty Start Date End Date Tiffany Baron MD [address] [address] PCP - General 01/12/14 02/19/16 documented as of this encounter
--- OUTSIDE RECORDS SUMMARY | 2024-09-18 01:21 | XMS_ITS | Encounter Summary ---
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 Left Foot - Follow-up, Pain, Callouses There were no encounter diagnoses. LEVI Garduno is a 74 y.o. female who has pain to the interspace of the left 4th and 5th toe. Shehad this treated in office on 12/11/2019. She reports symptom relief for the first 2 weeks or so, but pain has progressively worsened since then. She has also noticed the tissue to be broken down between the toes. No drainage reported, no redness. Pain with activity and reports pressure at night from laying on the foot causes pain, she has been having to adjust her foot position throughout the night for comfort. No n/v/f/c reported. There is no problem list on file for this patient. Past Medical History: Diagnosis Date ??? Anemia ??? Anxiety ??? Arthritis ??? Depression ??? Hearing loss ??? High cholesterol ??? History of substance abuse ([facility]) ??? Hypertension ??? Joint pain ??? Sinus [...] by mouth 2 times daily . ??? [place]-3 Fatty Acids-Vitamin E (FISH OIL) 1,000 mg [...] prn itching (Patient not taking: Reported on 12/30/2019) 30 g 0 ??? venlafaxine (EFFEXOR XR) 37.5 mg XR capsule Take 37.5 mg by mouth daily. No current facility-administered medications for this visit. Allergies Allergen Reactions ??? Morphine Nausea And Vomiting Vitals: Pulse 73 SpO2 97% ROS: Constitutional??negative for, fever, malaise, chills.?? Eyes??Negative [...] Skin is cool, dry, and supple, bilaterally. Partial thickness skin loss down to dermal tissue layerto the medial aspect of the left 5th toe. Macerated tissue associated, mild. No active drainage. Mild malodor. No erythema. .? Neurological??Protective sensation is intact to light touch, b/l.? Orthopedic??+5/5 muscle strength present to all LE muscle groups. Adductovarus rotation of b/l 4th, 5th digits.? Assessment: ICD-10-CM ICD-9-CM 1. 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 Pain in left toe(s) M79.675 729.5 3. Open wound of fifth toe of left foot, initial encounter S91.105A 893.0 Plan: Clinical findings and pathology discussed with pt in length today. Discussed surgical intervention with patient today and, in setting of pain associated and failed conservative management, advised patient to consider surgical intervention. Today, following patient's verbal consent, sharp debridement of wound was performed down to and including dermal tissue. No bleeding occurred with this. Betadine and lambs wool applied to interspace. Will see patient back in 2 weeks for wound follow-up. Patient is in agreement with this treatment plan. Speech recognition software was used to complete this progress note. Typographical errors may be present. 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 12/30/2019 aspirin chewable 81 mg tablet Take 81 mg by mouth daily. Side effects 12/30/2019 documented as of this encounter Historical Medications * This list may reflect changes made after this encounter. Medication Sig Dispensed Refills Start Date End Date omeprazole (PRILOSEC) 20 mg capsule 10/30 added in this encounter Care Teams International Account Representative Relationship Specialty Start Date End Date Dina Garcia MD [address] [address] PCP - General 02/20/16 documented as of this encounter
--- OUTSIDE RECORDS SUMMARY | 2024-09-18 01:21 | XMS_ITS | Encounter Summary ---
Author Organization [facility] [place] [address] Care Team Providers Care Personal Lines Sales Executive Name Role Phone Kay Caldwell MD Primary Care Provider [phone] Reason for Visit * Consultation (Routine) - Closed Specialty Diagnoses / Procedures Referred By Contac t Referred To Contact Pain and Spine Center Diagnoses Abdominal pain, unspecified abdominal location Pain- chronic R flank pain/ ? pain mgmt options Procedures DR NIXON Schultz, Dmitri Todd MD [address] [place] [phone] Cristóbal Jerry MD [facility] [place] [address] Referral ID Status Reason Start Date Expiration Date V isits Requested Visits Authorized [id number] Closed Consult, Test & Treat PCP Updated and/or Approved 08/15/2022 08/15/2023 6 6 Encounter Details Date Type Department Care Team (Late st Contact Info) Description 09/06/2022 9:30 AM EDT Office Visit [place] [phone] Jazmín Santiago APRN [facility] [place] [address] Lumbar foraminal stenosis (Primary Dx) Social History Tobacco Use Types Packs/Day Years Used Date Smoking Tobacco: Former Smokeless Tobacco: Never Sex and Gender Information Value Date Recorded Sex Assigned at Not on file Gender Identity Not on file Sexual Orientation Not on file documented as of this encounter Last Filed Vital Signs Vital Sign Reading Time Taken Comments Blood Pressure 123/53 09/06/2022 9:14 AM EDT Pulse 75 09/06/2022 9:14 AM EDT Temperature - - Respiratory Rate - - Oxygen Saturation 99% 09/06/2022 9:14 AM EDT Inhaled Oxygen Concentration - - Weight 89.4 kg (197 lb) 09/06/2022 9:14 AM EDT Height 160 cm (5' 3) 09/06/2022 9:14 AM EDT Body Mass Index 34.9 09/06/2022 9:14 AM EDT documented in this encounter Progress Notes * Jazmín Santiago, CANCER PROGRAM CONSULTANT - 09/06/2022 9:30 AM EDT [facility] Date of Consultation: September 06, 2022 Referring Provider: Dmitri Schultz Reason for [...] tried a lidocaine patch which was ineffective. PAIN ASSESSMENT: Description: Right flank painn to abdomen, dull ache Other associated symptoms:not associated Left posterior tingling to ankle Alleviating factors: staying still Aggravating factors:movement Lateral bending , forward bending, twisting Pain today:7-8 Best in past week:3-4/10 Worst in past week: 8/10 No flowsheet data found. 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 Allergies & Adverse Reactions: Patient has no allergy information on record. Problem List: There is no problem list on file for this patient. Social History: Social History Socioeconomic History ??? Marital status: Not on file Spouse name: Not on file ??? Number of children: Not on file ??? Years of education: Not on file ??? Highest education level: Not on file Occupational History ??? Not on file Tobacco Use ??? Smoking status: Not on file ??? Smokeless tobacco: Not on file Substance and Sexual Activity ??? Alcohol use: [...] medical history on file. Past Surgical History: No past surgical history on file. 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 Appearance/ Behavior Well groomed, good eye contact, [...] foraminal stenosis on the right at L2-3 and L3-4 which is consistent with her symptoms. Assessment: Ms. Garduno is a 77 y.o. year-old female who presents to the [facility] Spine clinic accompanied by her . She reports having had right-sided flank pain for over ayear. Symptoms seem to be related to her elbow to 3 and L3-4 foraminal stenosis related to disc dege nerative changes. We have discussed and reviewed the process of a trial of transforaminal injectionat those 2 levels to see if that will help her with her symptoms and follow-up afterwards with a Ánegl type physical therapy. She is agreeable to this. We reviewed the risks and benefits. She is going to be scheduled for that procedure and she and I will follow-up via telehealth because of the distance that they come. They come from [facility] which was over [address]. [address] you Dr[address] Schultz for allowing my participation in Josselyn Garduno's care. Jazmín Santiago, MS, [employer], CANCER PROGRAM CONSULTANT Nurse practitioner Pain management [facility] documented in this encounter Plan of Treatment Upcoming Encounters Date Type Department Care Team (Late st Contact Info) Description 09/18/2024 10:30 AM EST Office Visit Hematology/Oncology at [address] [phone] Erica Yi APRN [address] [place] [address] DR MEDICAL ONCOLOGY [place], [place] [phone] 09/18/2024 11:00 AM EST Infusion Hematology Oncology at [address] [phone] 10/01/2024 3:45 PM EST Office Visit Functional Religion Program at [place] [address] [place] [address] Gene Julien Jr., PT 12/23/2024 8:00 AM EST Appointment XRay at [address] [place] [address] River Ochoa MD [address] [place], [place] [address] 01/21/2025 1:00 PM EDT Office Visit Radiation Oncology at [address] [phone] Tory Salazar PA [facility] HEMATOLOGY [place] [address] documented as of this encounter Visit Diagnoses Diagnosis Lumbar foraminal stenosis- Primary Spinal stenosis, lumbar region, without neurogenic claudication documented in this encounter Care Teams Personal Lines Sales Executive Relationship Specialty Start Date End Date Kay Caldwell MD [address] [place] [address] [address] [place], [place] [address] PCP - General Family Medicine 08/15/22 documented as of this encounter
--- OUTSIDE RECORDS SUMMARY | 2024-09-18 01:21 | XMS_ITS | Encounter Summary ---
Author Organization [facility] Address [address] [place] [address] Care Team Providers Care Tank Builder Name Role Phone Dina Garcia MD Primary Care Provider [phone] Reason for Visit * Reason Comments Dyspareunia * Consult (Routine) - Closed Specialty Diagnoses / Procedures Referred By Contmarisa t Referred To Contact Pelvic Medicine Diagnoses Postmenopausal atrophic vaginitis Dyspareunia Sharath Brennan, [address] [facility], [address] [place] [address] Soo Rincon MD [address] 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 Medical Office Building, [address] [place] [phone] Dyspareunia (CODE) (Primary Dx); Vaginal discharge; Vulvar lesion Social History Tobacco Use Types Packs/Day Years [...] Blood Pressure 141/69 04/30/2016 0936 EDT Pulse 68 04/30/201636 EDT Temperature - - Respiratory Rate - - Oxygen Saturation - - Inhaled Oxygen Concentration - - Weight 95.7 kg (211 lb) 04/30/2016935 EDT Height 160 cm (5' 2.99) 04/30/2016935 EDT Body Mass Index 37.39 04/30/2016935 EDT documented in this encounter Ordered Prescriptions Prescription Sig Dispensed Refills Start Date End Da te terconazole (TERAZOL 7) 0.4 % vaginal cream Place 1 Applicator vaginally at bedtime. 1 Tube 0 05/04/2016 06/02/2018 documented in this encounter Progress Notes * Soo Rincon MD - 04/30/2016 1028 EDT Pt presents for a consult from Dr. Sharath Brennan for new problem of dyspareunia. Pt says that for about a yr, every time she has SI, she gets irritated and raw at the back side of the vaginal opening. Also in general the tissues at the opening of the vagina just feel more sensitive than normal. The lesion that occurs with SI takes several days to resolve. She applies clob to help. Urine stings it. She also just feels tight in that area. 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 It did not used to be this way. She has been using vaginal estrogen for yrs. (premarin cream- currently using 3x a week). She had been wearing pads for incontinence but in February she had a TVT type procedure with Dr. Horan and has been without leaking since then. She has stopped all pads and liners but still has the problem. She denies any vaginal d/c. Denies recurrent problem with yeast infections or other vaginal infections. She tried astroglide, rather than [place], as recommended but didn't help this problem. Med hx, surg hx, social hx, fam hx reviewed and updated in prism. ROS: mild frequency, nocturia x 1. Notes dry skin but no other skin conditions. Rest of 10 point ros is neg. PE: well appearing female BP 141/69 mmHg Pulse 68 Ht 160 cm (62.99) Wt 95.709 kg (211 lb) BMI 37.39 kg/m2 External genitalia: Clitoral gonzalez: nl Clitoris: nl Labia majora: nl Labia minora: nl Vestibule: vestibule/introitus appears somewhat more red than pink. There is a white line, flat, about 3 mm wide at the lower vestibule bilaterally about where the hymen would be and extends to mid way up. No white at the posterior fourchette, not eroded today but mildly tender to touch. (no hymen visible). Perineum: nl Urethral meatus: nl Speculum: Vagina: pink vaginal mucosa, looks well estrogenized. Small amt of chunky d/c. Last used cream 2 nights ago. Cervix: absent, cuff well healed. Wet smear: hyphae seen Bimanual: Urethra: nl Bladder: nl Uterus: absent Adnexa: absent Pelvic floor: NT Perianal skin: nl Rectal: NE I recommended a vulvar bx of the lesion at the introitus. Pt agreed. Procedure note: Consent obtain. Vulvar biopsy obtained with sterile technique after betadine prep and 1 cc 1% lidocaine with epi local. 4 mm punch biopsy taken from inner, lower, left introitus. Silver nitrate applied for hemostasis. No complications. Pt tolerated the procedure well. Post bx site care reviewed. Instructions and peribottle given. A: dyspareunia, persistent Vulvar lesion. ?yeast P: will check yeast culture and biopsy. Will call with results and further recs. Addendum 05/04: PC to pt. Reviewed yeast culture + for windy albicans. Biopsy with sig inflammation and possibly mild eczema. rec she treat the yeast and then see what sx persist. rec call 2 weeks with update. May also need atopical steroid intermittently. Pt states understanding and agreement. Addendum 05/04: diflucan interfers with 2 of her meds, so Terazol ordered instead. I asked the ALEXANDER lacey pt of this change. documented in this encounter Miscellaneous Notes * Addendum Note - Soo Rincon MD - 05/04/2016 1549 EDTAddended by: SOO RINCON on: 05/04/2016 15:49 Modules accepted: Orders documented in this encounter Plan of Treatment Scheduled Orders Name Type Priority Associated Diagnoses Orde r Schedule SURGICAL PATHOLOGY- ORDER ONLY Pathology Routine Dyspareunia (CODE) Vulvar lesion Ordered: 04/30/2016 documented as of this encounter Procedures Procedure Name Priority Date/Time Associated Diagnosis Comments SURGICAL PATHOLOGY Routine 04/30/2016 13 :17 EDT POCT VAGINAL PH Routine 04/30/2016 11:10 EDT Dyspareunia (CODE) Vaginal discharge POCT VAGINAL WET PREP INCLUDES LM Routine 04/30/2016 11:10 EDT Dyspareunia (CODE) Vaginal discharge FUNGUS CULTURE Routine 04/30/2016 10:28 EDT Dyspareunia (CODE) Vaginal discharge Vulvar lesion documented in this encounter Results * SURGICAL PATHOLOGY (04/30/2016 13:17 EDT) Pathology Report: SURGICAL PATHOLOGY REPORT Reports generated via electronic interface contain original data; however they are lacking the format of the original report. Caution should be taken when reading/interpreting unformatted reports. Name: ? JOSSELYN GARDUNO ? Accession #: ? [id number] ? : ? 1945 (Age: 71) ??F ? Collect Date: ? 04/30/2016 ? Location: ? [facility] ? Receive Date: ? 04/30/2016 ? Provider: SOO RINCON MD Copy to: ? Final Pathologic Diagnosis: MUCOSA OF VESTIBULE, RIGHT LOWER, BIOPSY: - Chronic mucositis with mild spongiosis. ??See comment. Comment: The histopathologic features are relatively non-specific but include a moderately dense chronic inflammatory infiltrate with mild spongiosis of the overlying squamous epithelium. ??There is no appreciable interface alteration. The epithelium has reactive changes but no significant atypia. ??Fungal organisms are not identified on sections prepared with PAS stain. ??(Dr. Huston[place] Microscopic Description: Sections consist of a portion of squamous mucosa. ??The mucosa is slightly hyperplastic and there is a thin overlying layer of compact keratin with focal parakeratosis. ??The epithelium shows reactive changes with areas of intercellular edema and spongiosis. ??There is exocytosis of lymphomononuclear cells. ??Within the underlying tissues, there is a moderately dense infiltrate that is composed primarily of lymphomononuclear cells. ??Rare eosinophils are noted. ??The interface is generally intact. ??No fungal organisms are identified on sections prepared with PAS-amylase stain. ??(Dr. Huston[place] Document reviewed and electronically signed by: SETH HUSTON MD Report ??Date: 05/02/2016 17:25 By the signature above, the attending physician certifies that he/she has personally conducted a gross and/or microscopic examination of the described specimens and rendered or confirmed the above diagnosis. Specimen(s) Received: Right lower vestibule, white lesion Clinical History: Recurrent erosion with intercourse at the back of vaginal opening; on vaginal estrogen; white lesions at the introitus; possible vaginal yeast (is this yeast related?); clinical diagnosis code: ??N94.1, N90.89 Gross Description: ? Received in formalin labelled with proper patient identification (initials B, A) and not otherwise specified is a punch biopsy of dc-pink pearly skin (0.3 cm in diameter x less than 0.1 cm in thickness). The specimen is submitted entirely in 04/30/2016 2:51 PM End of Report [facility] 04/30/2016 13:1 7 EDT 04/30/2016 13:17 EDT Soo Rincon MD PATHOLOGY ORDERABLE S [facility] [address] [place] [address] * POCT VAGINAL PH (04/30/2016 11:10 EDT) pH, Vaginal, POC 4 POINT OF CARE Specimen of unknown material (specimen) 04/30/2016 11:10 EDT Soo Rincon MD POINT OF CARE TEST ORDERABLES Performing Organization Address [facility] Co de Phone Number POINT OF CARE * (ABNORMAL) POCT VAGINAL WET PREP INCLUDES LM (04/30/2016 11:10 EDT) Clue Cells, POC Absent . POINT OF CARE Trichomonas, POC Absent . POINT OF CARE Yeast, POC Present(A) . POINT OF CARE Comment:hyphae White Blood Cells, POC Absent . POINT OF CARE Comment:most all mature squa ms Specimen of unknown material (specimen) 04/30/2016 11:10 EDT Soo Rincon MD POINT OF CARE TEST ORDERABLES Performing Organization Address City/[facility]/ZIP Co de Phone Number POINT OF CARE * FUNGUS CULTURE, OTHER (04/30/2016 10:28 EDT) Result Few WINDY ALBICANS 05/04/2016 11:37 EDT [facility] Specimen of unknown material (specimen) VAGINAL STRUCTURE / Unknown 04/30/2016 10:28 EDT 04/30/2016 12:49 EDT Soo Rincon MD MICROBIOLOGY - GENE RAL ORDERABLES Performing Organization Address City/[facility]/ZIP Co de Phone Number [facility] [address] [place] [address] documented in this encounter Visit Diagnoses Diagnosis Dyspareunia (CODE)- Primary Vaginal discharge Leukorrhea, not specified as infective Vulvar lesion Other specified noninflammatory disorder of vulva and perineum documented in this encounter Care Teams Tank Builder Relationship Specialty Start Date End Date Dina Garcia MD [address] [address] PCP - General 02/20/16 documented as of this encounter
--- OUTSIDE RECORDS SUMMARY | 2024-09-18 01:21 | XMS_ITS | Encounter Summary ---
Author Organization [facility] Address [address] [place] [address] Care Team Providers Care Office Clerk Assistant Name Role Phone Dina Garcia MD Primary Care Provider [phone] Reason for Visit * Reason Comments Follow-up * Consult (Routine) - Closed Specialty Diagnoses / Procedures Referred By Charli hardy Referred To Contact Pelvic Medicine Diagnoses Vulvar vestibulitis Sharath Briceño MD Maurer, Tracey Sue, MD [address] [place] [address] Medical Office Building, [address] [place] [phone] Referral ID Status Reason Start Date Expiration Date V isits Requested Visits Authorized [id number] Closed Specialty Services Required 1 1 Encounter Details Date Type Department Care Team (Latest Contact Info) Description 06/02/2018 10:15 EDT 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 - Medical Office Building [facility] [address] [place] [address] Soo Rincon MD [address] [place] [address] Medical Office [facility], [address] [phone] Dyspareunia, female (Primary Dx); Vulvar lesion Discharge Disposition: Auto Discharge Social History Tobacco [...] as of this encounter Discharge Diagnoses Diagnosis N94.10 Unspecified dyspareunia-N94.10[ICD-10-CM] N90.89 Other specified noninflammatory disorders of vulva and perineum-N90.89[ICD-10-CM] documented in this encounter Ordered Prescriptions Prescription Sig Dispensed Refills Start Date End Da te triamcinolone (KENALOG) 0.1 % ointment Apply thi layer to the vulvar prn itching 30 g 06/06/2018 documented in this encounter Discharge Disposition Disposition Code Departure Means Destination Auto Discharge documented in this encounter Progress Notes * Soo Rincon MD - 06/02/2018 1015 EDT Pt presents again after 2 yrs because she continues to have pain with SI. I did a bx that showed some eczema at the posterior fourchette and a yeast infection. Neither treatments helped. She currently is using a topical lidocaine which helps some. She gets pain at the posterior fourchette during SIand then is sore with stinging with urination for several days after. O/w she has no pain. They have SI about once a week because that is all she can tolerate. She is using premarin vaginal cream about 1-2 x a week. She has been using that jail. She has not tried it topically. She does note occ anterior vulvar itching. Med hx, surg hx, fam hx, social hx reviewed in prism. PE: well appearing female There were no vitals taken for this visit. Vulva- loss of labia minora, clitoral gonzalez sclerosed over the clitoris, patches of white on the inner anterior labia, R. Perineum - nl Posterior fourchette- nl, today. There is a slight tenderness to palpation there. Spec - creamy white d/c Wet smear- all nl BM- no masses, slight tenderness at the posterior fourchette with downward pressure or stretch. I rec a biopsy for the anterior vulvar changes. Pt agreed. Procedure note: Consent obtain. Vulvar biopsy obtained with sterile technique after betadine prep and 1 cc 1% lidocaine with epi local. 4 mm punch biopsy taken from R inner anterior labia (white patch). Silver nitrate applied for hemostasis. No complications. Pt tolerated the procedure well. Post bx site care reviewed. A: dyspareunia that seems to be from recurrent tears Vulvar skin changes with itching P: well check biopsy and call rec topical premarin to the posterior fourchette daily for the next month with abstainance. If still recurs, will consider a perineoplasty. Discussed with pt and she is interested. Addendum 06/06: PC to pt. Reviewed bx showing lichenoid dermatitis. Will prescribe triamcinolone ointment to use prn itching. At this point she will f/u up with me in about of month of using the topical premarin. CC: Dr. Dina Garcia per pt request. documented in this encounter Miscellaneous Notes * Addendum Note - Soo Rincon MD - 06/06/2018 1228 EDTAddended by: SOO RINCON on: 06/06/2018 12:28 Modules accepted: Orders documented in this encounter Plan of Treatment Scheduled Orders Name Type Priority Associated Diagnoses Orde r Schedule POCT VAGINAL PH Point of Care Testing Routine Dyspareunia, female Ordered: 06/02/2018 POCT VAGINAL WET PREP INCLUDES LM Point of Care Testing Routine Dyspareunia, female Ordered: 06/02/2018 SURGICAL PATHOLOGY- ORDER ONLY Pathology Routine Vulvar lesion Ordered: 06/02/2018 documented as of this encounter Procedures Procedure Name Priority Date/Time Associated Diagnosis Comments SURGICAL PATHOLOGY Routine 06/02/2018 14 :44 EDT documented in this encounter Results * SURGICAL PATHOLOGY (06/02/2018 14:44 EDT) Pathology Report: SURGICAL PATHOLOGY REPORT Reports generated via electronic interface contain original data; however they are lacking the format of the original report. Caution should be taken when reading/interpret ing unformatted reports. Name: ? JOSSELYN GARDUNO ? Accession #: ? [id number] ? : ? 1945 (Age: 73) ??F ? Collect Date: ? 06/02/2018 ? Location: ? [facility] ? Receive Date: ? 06/02/2018 ? Provider: SOO RINCON MD Copy to: ? Final Pathologic Diagnosis: MUCOSA, RIGHT UPPER INNER LABIA MAJORA, BIOPSY: - Lichenoid mucositis. See comment. Comment: The biopsy shows features of lichenoid mucositis with prominent interface vacuolar change and a moderately dense inflammatory infiltrate. The differential diagnosis would include early lichen sclerosus (LS) and lichen planus (LP). There are focal areas of mild thickening of the dermal collagen and, therefore, early lichen sclerosus is slightly favored. The epithelium has reactive changes but no evidence of dysplasia. ??(Dr. Huston)/jstella Microscopic Description: Sections consist of a portion of squamous mucosa. There is compacted orthohyperkeratos is. The epithelium is slightly acanthotic and there is active interface vacuolar change with exocytosis of lymphocytes and individual necrotic keratinocytes. Within the underlying tissues, there is a patchy lichenoid infiltrate that is of moderate density. The infiltrate is predominately lymphomononuclear with scattered melanophages. There is slight thickening of the dermal collagen bundles superficially. (Dr. Huston)/jds ?? Document reviewed and electronically signed by: SETH HUSTON MD Report ??Date: 06/03/2018 13:38 By the signature above, the attending physician certifies that he/she has personally conducted a gross and/or microscopic examination of the described specimens and rendered or confirmed the above diagnosis. Specimen(s) Received: Right upper inner labia majora Clinical History: Itching, loss of architecture and white lesions; R/O LS, dysplasia; clinical diagnosis code: ??N90.89 Gross Description: ? Received in formalin labelled with proper patient identification (initials B, A) and not otherwise specified is a punch biopsy of dc-pink skin (0.4 in diameter and 0.1 in thickness). Submitted intact in 1. Rahel Pandey 06/02/2018 3:10 PM End of Report [facility] 06/02/2018 14:4 4 EDT 06/02/2018 14:44 EDT Soo Rincon MD PATHOLOGY ORDERABLE S [facility] [address] [place] [address] documented in this encounter Visit Diagnoses Diagnosis Dyspareunia, female- Primary Dyspareunia Vulvar lesion Other specified noninflammatory disorder of vulva and perineum documented in this encounter Discontinued Medications Medication Sig Discontinue Reason Start Date End Da te oxyCODONE (ROXICODONE) 5 mg immediate release tablet Take 1 Tab by mouth every 4 hours as needed for Pain. Daily Max: 30 mg 02/21/2016 06/02/2018 terconazole (TERAZOL 7) 0.4 % vaginal cream Place 1 Applicator vaginally at bedtime. 05/04/2016 06/02/2018 triamcinolone (KENALOG) 0.1 % ointment Apply thin layer to affected area 2x a day for 3 weeks 05/15/2016 06/02/2018 documented as of this encounter Care Teams Office Clerk Assistant Relationship Specialty Start Date End Date Dina Garcia MD [address] [address] PCP - General 02/20/16 documented as of this encounter
--- OUTSIDE RECORDS SUMMARY | 2024-09-18 01:21 | XMS_ITS | Encounter Summary ---
Author Organization [facility] Address [address] [place] [address] Care Team Providers Care Batch Mixing Truck Driver Name Role Phone Dina Garcia MD Primary Care Provider [phone] Encounter Details Date Type Department Care Team (Late st Contact Info) Description 08/09/2023 Lab Requisition [facility] Pathology & Laboratory Medicine - [facility] [address] [place] [address] Kay Caldwell MD [address] [place] [phone] Encounter for other general examination Social History [...] Date/Time Associated Diagnosis Comments SURGICAL PATHOLOGY Today 08/09/2023 9:10 EDT documented in this encounter Results * SURGICAL PATHOLOGY (08/09/2023 9:10 EDT) Ancillary Studies Addendum ER/OR RESULTS: Tissue submitted: Paraffin embedded tissue block labelled [id number] (A1) from [facility] Immunohistochemical assays for estrogen receptors (SP1, Pass Christian) and progesterone receptors (16, Leica) have been performed on this specimen. Intranuclear receptor complexes were visualized on tissue sections using an HRP polymer immunohistochemical technique. This assay is intended for paraffin-embedded tissue fixed in 10% neutral buffered formalin for 6-72 hours. Results are reported as negative (<1% nuclear staining) or positive with the proportion of positive cells noted. Estrogen receptor expression in <5% of tumor cells may not have a strong interaction with estrogen receptor modulators such as Tamoxifen. Reference: ASCO-CAP Guideline Recommendations for IHC testing of ER and OR. J Clin Oncol 2010;28:7254-6661. NOTE: One or more of the reagents used in immunoperoxidase testing in this case may not have been cleared or approved by the U.S. Food and Drug Administration (FDA). The FDA has determined that such clearance or approval is not necessary. These tests are used for clinical purposes. They should not be regarded as investigational or for research. These reagents' performance characteristics have been determined by [facility] and/or by the referring laboratory. The positive and negative controls worked appropriately. If immunoperoxidase staining has been performed on alcohol fixed cytology specimens, which has not been fully validated, the assays should be interpreted with caution and correlated with clinical data. This laboratory is certified under the Clinical Laboratory Improvement Amendments of 1988 (CLIA-88) as qualified to perform high complexity clinical laboratory testing. INTERPRETATION: BREAST, RIGHT, 1:30 O'CLOCK, 5 CM FROM NIPPLE, ULTRASOUND-GUIDED CORE BIOPSY: - Adenocarcinoma, invasive, ductal, nuclear grade 2. - Positive for estrogen receptors (in > 90% of tumor cells). - Nuclear staining intensity: Strong. - Positive for progesterone receptors (in > 90% of tumor cells). - Nuclear staining intensity: Strong. COMMENT: Cold ischemic time and total formalin fixation time appropriate: Yes HER2/DAKOTA RESULTS: Tissue submitted: Paraffin embedded tissue block labelled [id number] (A1) From [facility] Fixative: Formalin This immunohistochemical assay is intended to paraffin-embedded tissue fixed in 10% neutral buffered formalin for 6-72 hours; 18-24 hour fixation with maximum tissue thickness of 3-4 millimeters is recommended for best assay performance. Time from biopsy to placement in formalin (cold ischemic time) should be minimized to less than one hour. Her2 should not be performed on alcohol fixed tissues. The assay was performed under appropriate conditions according to the welder/fabricator's instructions with appropriate assay and tissue controls using an Anti-Her2 (4B5) Rabbit Monoclonal Antibody (Pass Christian). Her2 Scoring Guidelines (invasive tumor component only) 0 negative No staining or membrane staining in less than 10% of cells 1+ negative Faint partial membrane staining in more than 10% of cells 2+ weakly positive Moderate complete membrane staining in more than 10% of cells 3+ positive Strong complete membrane staining in more than 10% of cells Reference: ASCO-CAP Recommendations for Her2 Testing. J Clin Oncol 2018; epub (www.jco.org April 29, 2018) *FDA statement Assay results Her2 IHC Score: 0/negative Tumor location: Right Breast ; 1 o'clock Cold ischemic time and total formalin fixative time appropriate: Yes Cells with complete membrane staining: < 10% Membrane staining intensity: N/A Partial membrane staining: Absent Cytoplasmic staining: Absent Staining pattern: N/A Staining in benign epithelium: N/A The Her2 assay performed is interpreted as: NEGATIVE 08/14/2023 14:14 [facility] Addendum electronically signed by Miesha Toro MD on 08/14/2023 at 1414 Note to Patient The following pathology results have been interpreted by your pathologist and may be available to you before your health provider has had the opportunity to review them. Please allow time for your provider to receive these results and explore management options, if applicable. 08/14/2023 14:14 [facility] Final Diagnosis A. BREAST, RIGHT, 1:30 O'CLOCK, 5 CM FROM NIPPLE, ULTRASOUND-GUIDED CORE BIOPSY: - Adenocarcinoma, invasive, ductal, nuclear grade 2. See comment. 08/14/2023 14:14 [facility] Diagnosis Comment Estrogen and progesterone receptor assays and Her2 studies have been ordered on Block (A1) and results will be issued in an Addendum. 08/14/2023 14:14 [facility] Attestation There was significan t resident/fellow involvement in the diagnostic evaluation of this case. By the signature below, the attending physician certifies that they have personally conducted a gross and/or microscopic examination of the described specimens and rendered or confirmed the above diagnosis. 08/14/2023 14:14 T [facility] at 1143 Clinical History 1.1 cm angular mass R breast, 1:30 o'clock 5 cm FN 08/14/2023 14:14 EDT [facility] Gross Description A. Received in formalin labelled with proper patient identification (initials B, A) and right 1:30 5 cm FN are 6 yellow and white fibrofatty tissue cores (0.4 cm to 2.0 cm in length, and 0.1 cm to 0.3 cm in diameter). Entirely submitted in A1 and A2. Time removed from patient: 09:10 hours 08/09/2023 Time placed in formalin: Not provided 08/09/2023 Time out of formalin: 0:30 hours 08/13/2023 KIM MIRAMONTES(ASCP) 08/12/2023 10:39 08/14/2023 14:14 EDT [facility] Resident/Fell ow: Faustino Jalloh MD 08/14/2023 14:14 [facility] Performing Lab [facility] 08/14/2023 14:14 T [facility] Scanned Images 08/14/2023 14:14 T [facility] Tissue BREAST STRUCTURE / Unknown 08/09/2023 9:10 EDT 08/10/2023 7:07 EDT Kay Caldwell MD PATHOLOGY ORD ERABLES [facility] [address] [place] [address] documented in this encounter Visit Diagnoses Diagnosis Encounter for other general examination documented in this encounter Care Teams Batch Mixing Truck Driver Relationship Specialty Start Date End Date Dina Garcia MD [address] [address] PCP - General 02/20/16 documented as of this encounter
--- OUTSIDE RECORDS SUMMARY | 2024-09-18 01:21 | XMS_ITS | Encounter Summary ---
Author Organization [facility] Address [address] [place] [address] Care Team Providers Care Pipe Jeeper Name Role Phone Tiffany Baron MD Primary Care Provider Encounter Details Date Type Department Care Team (Late st Contact Info) Description 12/23/2014 Results Only [facility] Laboratory Services - [facility] [place] [place] [address] [place] [phone] Unknown, Provider, Social History Tobacco Use Types Packs/Day Years [...] Procedure Name Priority Date/Time Associated Diagnosis Comments CREATININE, ISTAT Routine 12/23/2014 7:42 EST documented in this encounter Results * CREATININE, ISTAT (12/23/2014 7:42 EST) Creatinine, i-STAT 0.9 0.6 - 1.3 mg/dl 12/23/2014 7:48 EST [facility] residency program coordinator ID [id number] 12/23/2014 7:48 EST [facility] Comment:Test performed by [facility] [employer] BLOOD SPECIMEN / Unknown 12/23/2014 7:42 EST 12/23/2014 7:48 EST Provider Unknown MD POINT OF CARE TEST O RDERABLES [facility] [address] [place] [address] documented in this encounter Visit Diagnoses Not on filedocumented in this encounter Care Teams Pipe Jeeper Relationship Specialty Start Date End Date Tiffany Baron MD [address] [address] PCP - General 01/12/14 02/19/16 documented as of this encounter
--- OUTSIDE RECORDS SUMMARY | 2024-09-18 01:22 | XMS_ITS | Encounter Summary ---
Author Organization [facility] Address [address] [place] [address] Care Team Providers Care Auto Finance Sales Rep Name Role Phone Tiffany Baron MD Primary Care Provider Encounter Details Date Type Department Care Team (Late st Contact Info) Description 02/16/2014 Abstract [facility] Foot & Ankle Program - [address] [address] Giancarlo Briggs DPM [address] [place] [address] Social History Tobacco Use Types Packs/Day Years Used Date Smoking Tobacco: Unknown Alcohol Use Standard Drinks/Week Comments No 0 [...] on filedocumented in this encounter Care Teams Auto Finance Sales Rep Relationship Specialty Start Date End Date Tiffany Baron MD [facility] [address] [id number] PCP - General 01/12/14 02/19/16 documented as of this encounter
--- OUTSIDE RECORDS SUMMARY | 2024-09-18 01:22 | XMS_ITS | Encounter Summary ---
Author Organization [facility] Address [address] [place] [address] Care Team Providers Care Navy Airspace Officer Name Role Phone Tiffany Baron MD Primary Care Provider [phone] Reason for Visit * Reason Comments Foot Problem Bilateral 2nd toe pr oblem -- redness, swelling, cracking skin. Can be painful. Difficult wearing shoes. Placed on a course of antibiotics. Referred by PCP. Encounter Details Date Type Department Care Team (Late st Contact Info) Description 02/12/2014 10:00 EDT Office Visit [facility] Foot & Ankle Program - [address] [address] Giancarlo Briggs DPM [address] [place] [phone] Chilblains (Primary Dx); Fissured skin Social History Tobacco Use Types Packs/Day Years Used Date Smoking Tobacco: Never Assessed Sex and Gender Information Value Date Recorded Sex Assigned at Not on file Gender Identity Not on file Sexual Orientation Not on file documented as of this encounter Progress Notes * Giancarlo Briggs DPM - 02/12/2014 1159 EDT HISTORY OF PRESENT ILLNESS: Axfgs[age]gzvis-gjhy-old female presents today with pain in both 2nd toes. She describes splitting of the skin and possibility of recent infection of which she was placed on oral antibiotics by her primary care physician. She has been trying to wear open-toed shoes to avoid irritation to the toes. She has also been switching to roomier shoes as she felt that things were too tight together. This has been a problem over the past 6 months. She is an active individual. She enjoys participating in Dolly classes. She wears sneakers and other styles of shoes. She has found that roomier shoes with extra room in the toe box make a significant difference. She does have a history of frostbite within her feet. The patient is not diabetic. The patient's remaining past medical history, medications, allergies, past surgical, social and family history were reviewed and noted in the electronic health record. PHYSICAL EXAMINATION: Constitutional exam: The patient is in no acute distress. Psychological exam: The patient is awake, alert and oriented x3. Vascular exam: Her dorsalis pedis and posterior tibial arterial pulses are 2/4 bilateral. Capillaryfilling time is within 3 seconds. Her feet have somewhat of a bluish hue when it comes to the pulpsof the tips of the toes as well as the pads beneath the balls of the foot and heels suggestive of an underlying vascular issue. Neurologic exam: Epicritic sensations are grossly intact. Muscle strength is 5/5 bilateral. Dermatologic exam: Small fissured splits are noted within the skin at the distal tips of both 2nd toes. There is no drainage, no erythema, no edema suggesting any infection. Today there is minimal pain. Orthopedic exam: She maintains a normal arch height in stance. Mild hammertoe contractures may be present. These are flexible in nature. She maintains a normal arch height. IMPRESSIONS: 1. Fissured skin. 2. Concern for underlying frostnip or recurrent chilblains phenomena over the colder winter months. PLAN: We recommended that she use a moisturizing cream on the tips of the toes. Silipos toe caps were dispensed in order to protect the 2nd toes. We spent time discussing the benefits of keeping her feet warm and dry and to avoid damp and cold environments as the tissue on her feet may not do as well with friction and pressure if she is exposed to cold for too long a period of time. She will abide by this and we will see her as needed. documented in this encounter Plan of Treatment Not on file documented as of this encounter Visit Diagnoses Diagnosis Chilblains- Primary Effects of chilblains Fissured skin Other specified disorder of skin documented in this encounter Historical Medications * This list may reflect changes made after this encounter. Medication Sig Dispensed Refills Start Date End Date POTASSIUM ORAL Take by mouth daily. MULTIVITAMIN ORAL Take by mouth 2 times daily . venlafaxine (EFFEXOR XR) 37.5 mg XR capsule Take 37.5 mg by mouth daily. simvastatin (ZOCOR) 20 mg tablet Take 20 mg by mouth at bedtime. CALCIUM ORAL Take by mouth daily. 016 aspirin chewable 81 mg tablet Take 81 mg by mouth daily. 12/30/2019 OMEPRAZOLE ORAL Take 40 mg by mouth daily. 12/30/2019 added in this encounter Care Teams [employer] Airspace Officer Relationship Specialty Start Date End Date Tiffany Baron MD [address] [address] PCP - General 01/12/14 02/19/16 documented as of this encounter
--- OUTSIDE RECORDS SUMMARY | 2024-09-18 01:22 | XMS_ITS | Encounter Summary ---
Author Organization [facility] Address [address] [place] [address] Care Team Providers Care Differential Specialist Name Role Phone Unavailable Primary Care Provider Unavailabl e Encounter Details Date Type Department Care Team (Latest Contact Info) Description 08/22/2002 12:05 EDT Hospital Encounter [facility] Emergency Department - [facility] [place] [address] [place] [address] Emergency, Default, MD Discharge Disposition: Home or Self Care Social History Tobacco Use Types Packs/Day Years Used Date Smoking Tobacco: Never Assessed Sex and Gender Information Value Date Recorded Sex Assigned at Not on file Gender Identity Not on file Sexual Orientation Not on file documented as of this encounter Discharge Disposition Disposition Code Departure Means Destination Home or Self Care documented in this encounter Plan of Treatment Not on file documented as of this encounter Procedures Procedure Name Priority Date/Time Associated Diagnosis Comments HPV DETECTION, HIGH RISK TYPES Routine 08/11/2009 19:25 EDT CYTOPATHOLOGY Routine 08/11/2009 0:00 EDT documented in this encounter Results * HUMAN PAPILLOMA VIRUS DNA TEST (08/11/2009 19:25 EDT) Specimen Description Cervix, ThinPrep vial [facility] Result Negative for HPV types 16, 18, 31, 33, 35, 39, 45, 51, 52, 56, 58, 59, and 68. [facility] Report Status Final 08/25/2009 [facility] 08/11/2009 19:2 5 EDT 08/19/2009 13:32 EDT Tiffany Baron MD MICROBIOLOGY - GENER AL ORDERABLES [facility] [address] [place] [address] * CYTOPATHOLOGY (08/11/2009 0:00 EDT) Pathology Report: CYTOPATHOLOGY REPORT ? Reports generated via electronic interface contain original data; ? however they are lacking the format of the original report. ? Caution should be taken when reading/interpreti ng unformatted reports. ? Name: ? JOSSELYN GARDUNO ? Accession #: ? [id number] ? : ? 1945 (Age: 64) ??F ?Collect Date: ? 08/11/2009 ? Location: ? [facility] ? Receive Date: ? 08/15/2009 ? Provider: ?TIFFANY VOLANSKY MD ? Copy to: ? Specimen/Source: ?Pap Test, Cervix, ThinPrep Imaging System with manual ?? evaluation ? Last Menstrual Period: ? Other: ? HPVDX - HPV testing requested regardless of diagnosis on current ThinPrep Pap ?? test. ? SPECIMEN ADEQUACY ? Satisfactory for Evaluation ? - transformation zone component present ? GENERAL CATEGORIZATION ? Negative for Intraepithelial Lesion or Malignancy ? INTERPRETATION ? Fungal organisms present morphologically consistent with Vanessa species. ? Document reviewed and electronically signed by: ? Ani [place], [place](ASCP) ? Report Date: ??08/18/2009 11:28 ? End of Report ? [facility] 08/11/2009 08/15/2009 Tiffany Baron MD PATHOLOGY ORDERABLES [facility] [address] [place] [address] documented in this encounter Visit Diagnoses Not on filedocumented in this encounter
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
[2024-09-18 09:21] LABS: ALT 18 U/L (14-59); AST 18 U/L (15-37); Albumin 3.3 g/dL (3.4-5.0); Alkaline Phosphatase 57 U/L (46-116); Anion Gap 4.8 mmol/L (3-11); BUN 23 mg/dL (7-18); CO2 32.2 mmol/L (21.0-32.0); Calcium 9.1 mg/dL (8.5-10.1); Chloride 106 mmol/L (98-107); Estimated GFR 57.31 (mL/min/1.73m2); Glucose 83 mg/dL (74-106); Potassium 4.3 mmol/L (3.5-5.1); Sodium 143 mmol/L (136-145); Total Protein 6.7 g/dL (6.4-8.2)
== END 2024-09-18 01:04 | disposition home or self-care (01) ==
PROVIDERS: Visit Provider Nurse Practitioner Family
DX: Z79.811 Long term (current) use of aromatase inhibitors (principal); C50.911 Malignant neoplasm of unspecified site of right female breast; T45.1X5A Adverse effect of antineoplastic and immunosuppressive drugs, initial encounter
CPT/HCPCS: 36415; 80053

== ENCOUNTER 2025-03-19 01:26 | Outpatient (CLI) | payer MEDICARE, SELFPAY ==
[2025-03-19 13:56] LABS: ALT 21 U/L (14-59); AST 20 U/L (15-37); Albumin 3.5 g/dL (3.4-5.0); Alkaline Phosphatase 60 U/L (46-116); Anion Gap 6.8 mmol/L (3-11); BUN 23 mg/dL (7-18); Bilirubin, Total 0.5 mg/dL (0.2-1.0); CO2 30.2 mmol/L (21.0-32.0); CREATININE 0.9 mg/dL (0.55-1.02); Calcium 9.2 mg/dL (8.5-10.1); Chloride 103 mmol/L (98-107); Estimated GFR 65.03 (mL/min/1.73m2); Glucose 101 mg/dL (74-106); Potassium 3.8 mmol/L (3.5-5.1); Sodium 140 mmol/L (136-145); Total Protein 6.8 g/dL (6.4-8.2)
== END 2025-03-19 01:27 | disposition home or self-care (01) ==
LOC: LBO 01:26
PROVIDERS: PCP Family Medicine; Visit Provider Nurse Practitioner Family
DX: Z79.811 Long term (current) use of aromatase inhibitors (principal); C50.911 Malignant neoplasm of unspecified site of right female breast; M25.50 Pain in unspecified joint; T45.1X5A Adverse effect of antineoplastic and immunosuppressive drugs, initial encounter
CPT/HCPCS: 36415; 80053

== ENCOUNTER 2025-10-01 00:20 | Outpatient (CLI) | payer MEDICARE, SELFPAY ==
[2025-10-01 08:51] LABS: Abs Immature Grans 0.01 10^3/uL (0.0-0.06); HCT 40.5 % (36.0-46.0); HGB 13.4 g/dL (11.2-15.7); Immature Grans % 0.2 %; MCH 30.4 pg (27.0-33.0); MCHC 33.1 % (32.0-36.0); MCV 92 fL (80-95); MPV 8.9 fL (8.0-11.0); Platelet Count 172 10^3/uL (130-400); RBC 4.41 10^6/uL (3.93-5.22); RDW 13.1 % (11.7-14.6); RDW-SD 44.2 fL; WBC 4.25 10^3/uL (4.4-10.8)
[2025-10-01 09:08] LABS: ALT 13 U/L (10-49); AST 20 U/L (<34); Albumin 4.0 g/dL (3.4-5.0); Alkaline Phosphatase 51 U/L (46-116); Anion Gap 2.3 mmol/L (3-11); BUN 14 mg/dL (9-23); Bilirubin, Total 0.60 mg/dL (0.2-1.2); CO2 32.7 mmol/L (20.0-31.0); Calcium 10.0 mg/dL (8.3-10.6); Chloride 106 mmol/L (98-107); Glucose 78 mg/dL (74-106); Potassium 4.3 mmol/L (3.5-5.1); Sodium 141 mmol/L (136-145); Total Protein 6.5 g/dL (5.7-8.2)
[2025-10-01 09:11] LABS: Vitamin D 25 Total 58 ng/mL (30-100)
== END 2025-10-01 00:21 | disposition home or self-care (01) ==
LOC: LBO 00:20
PROVIDERS: PCP Family Medicine; Visit Provider Nurse Practitioner Family
DX: M85.859 Other specified disorders of bone density and structure, unspecified thigh (principal)
CPT/HCPCS: 36415; 80053; 82306; 85025